=== PATIENT | female | born 1985 | race Caucasian/White ===

== ENCOUNTER → 2022-04-12 | Outpatient (CLI) | payer MEDICAID, SELFPAY ==
[2022-04-12 18:21] LABS: ALB/GLOB Ratio 1.1 RATIO (0.9-2.4); AST(SGOT) 8 U/L (15-37); Alanine Aminotransfer ALT/SGPT 19 U/L (13-56); Albumin, Serum 4.1 g/dL (3.2-5.0); Alkaline Phosphatase 102 U/L (45-117); Anion Gap 6 (5-15); BUN 9 mg/dL (7-18); BUN/Creat Ratio 13.2 RATIO (10-20); Calcium,Total 9.1 mg/dL (8.5-10.1); Chloride 106 mmol/L (98-107); Creatinine, Serum 0.68 mg/dL (0.55-1.02); EST Glomerular Filtration Rate 104 mL/min (>60); Est Glom Filt Rate - Afr Amer 126 mL/min (>60); Globulin 3.8 g/dL (2.2-4.2); Glucose 86 mg/dL (74-106); Potassium 4.1 mmol/L (3.5-5.1); Protein, Total 7.9 g/dL (6.4-8.2); Sodium Level 139 mmol/L (136-145)
== END | disposition home or self-care (01) ==
LOC: LAB 16:40
PROVIDERS: PCP Student in an Organized Health Care Education/Training Program; Visit Provider Internal Medicine Endocrinology, Diabetes & Metabolism
DX: R63.4 Abnormal weight loss (principal)
CPT/HCPCS: 36415; 80053; 82533

== ENCOUNTER → 2022-04-22 | Outpatient (CLI) | payer MEDICAID, SELFPAY ==
[2022-04-22 17:11] LABS: Absolute Lymphocyte Count 3.48 X10^3/uL (0.83-4.51); Absolute Neutrophil Count 4.7 X10^3/uL (2.0-7.7); Basophil# 0.04 X10^3/uL; Basophil% 0.4 % (0-1); Eosinophil# 0.29 X10^3/uL; Eosinophils% 3.2 % (0-5); Hematocrit 42.5 % (37-47); Hemoglobin 14.2 g/dL (12.0-15.0); Lymphocyte # 3.48 X10^3/ul (0.83-4.51); Lymphocyte % 38.8 % (19-41); Mean Corp Hgb Conc 33.4 g/dL (32-36); Mean Corpuscular Hgb 30.3 pg (27.0-32.0); Mean Corpuscular Volume 90.6 fL (81-99); Monocyte# 0.44 X10^3/uL; Monocyte% 4.9 % (0-10); NRBC Flagged by Analyzer 0 % (0-5); Neutrophil # 4.67 X10^3/uL (2.7-7.7); Platelet Count 201 K/mm3 (150-450); RBC Distribution Width SD 42.8 fl (35.1-43.9); Red Blood Count 4.69 M/mm3 (4.2-5.4)
[2022-04-22 17:56] LABS: Erythrocyte Sedimentation Rate 7 mm/hr (0-30)
[2022-04-22 18:30] LABS: ALB/GLOB Ratio 1.1 RATIO (0.9-2.4); AST(SGOT) 10 U/L (15-37); Alanine Aminotransfer ALT/SGPT 17 U/L (13-56); Albumin, Serum 4.2 g/dL (3.2-5.0); Alkaline Phosphatase 98 U/L (45-117); Anion Gap 4 (5-15); BUN 7 mg/dL (7-18); BUN/Creat Ratio 10.5 RATIO (10-20); CRP < 2.90 mg/L (0.0-3.0); Calcium,Total 9.2 mg/dL (8.5-10.1); Chloride 107 mmol/L (98-107); Creatinine, Serum 0.67 mg/dL (0.55-1.02); EST Glomerular Filtration Rate 107 mL/min (>60); Est Glom Filt Rate - Afr Amer 129 mL/min (>60); Free T3 2.8 pg/mL (2.18-3.98); Globulin 3.7 g/dL (2.2-4.2); Glucose 83 mg/dL (74-106); LDH 120 U/L (84-246); Potassium 3.8 mmol/L (3.5-5.1); Protein, Total 7.9 g/dL (6.4-8.2); Sodium Level 139 mmol/L (136-145); T4 Free Direct 1.28 ng/dL (0.76-1.46); Thyroid Stim Hormone (TSH) 2.08 uIU/mL (0.358-3.74)
[2022-04-25 16:08] LABS: Endomysial Antibody IgA Negative (Negative)
[2022-04-25 19:09] LABS: Immunoglobulin A 357 mg/dL (87-352); t-Transglutaminase IgA <2 U/mL (0-3)
[2022-04-27 12:08] LABS: Cytoplasmic Ab (C-ANCA) <1:20 titer (Neg:<1:20); Immunoglobulin A 377 mg/dL (87-352); Immunoglobulin E 209 IU/mL (6-495); Immunoglobulin G 1015 mg/dL (586-1602)
[2022-04-27 13:33] LABS: Cancer Antigen 125 44.7 U/mL (0.0-38.1); Carbohydrate AG 19-9 19 U/mL (0-35); Carcinoembryonic Antigen 4.1 ng/mL (0.0-4.7); Immunoglobulin M 170 mg/dL (26-217); Perinuclear Ab (P-ANCA) <1:20 titer (Neg:<1:20)
== END | disposition home or self-care (01) ==
LOC: LAB 16:11
PROVIDERS: PCP Student in an Organized Health Care Education/Training Program; Visit Provider Internal Medicine Gastroenterology
DX: R63.4 Abnormal weight loss (principal)
CPT/HCPCS: 36415; 80053; 82378; 82784; 82785; 83516; 83615; 84439; 84443; 84481; 85025; 85652; 86140; 86255; 86256; 86301; 86304

== ENCOUNTER → 2022-04-25 | Outpatient (CLI) | payer MEDICAID, SELFPAY ==
[2022-04-29 10:46] LABS: Calprotectin, Stool <16 ug/g (0-120); Fats, Neutral Normal (.); Fats, Total Increased (.)
[2022-04-30 20:45] LABS: Pancreatic Elastase, Fecal 271 (>200)
== END | disposition home or self-care (01) ==
LOC: LAB 14:43
PROVIDERS: PCP Student in an Organized Health Care Education/Training Program; Referring Provider Internal Medicine Gastroenterology; Visit Provider Internal Medicine Gastroenterology
DX: R63.4 Abnormal weight loss (principal); K58.9 Irritable bowel syndrome, unspecified
CPT/HCPCS: 82274; 82653; 82705; 83630; 83993; 87177; 87209; 87329; 87493; 87506

== ENCOUNTER 2022-05-06 15:30 | Outpatient (RCR) | payer MEDICAID, SELFPAY ==
--- NOTE | 2022-01-26 16:18 | HP.PTEVAL_ITS ---
Patient's Visit Information IISDRA LIM is a 36 year old F referred to Physical Therapy by Dr. Kings Kline MD with a diagnosis of L knee pain. Date of Evaluation: 01/20/22 Physical Therapist: Yasmani Hair DPT - Visit Plan Frequency: 2x /Week Duration: 6 Weeks Plan: Start with quad activation, glute med/max strengthening. Progress ROM to full as tolerated. Progress to more LE loading and core strengthening as tolerated. - Subjective Pt. is here today for her initial evaluation with diagnosis of L knee pain. Pt. reports having pain for a number of years, but recently has become worse. Pt. reports having a surgical intervention when she was younger, what she described might have been a lateral release like surgery, but was unsure what was done. Increases pain: walking, standing, squatting, stairs. Decreases pain: ice and rest. 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 She describes pain as general throughout L knee, both medial lateral joint line and throughout anterior knee. She reports no popliteal pain. Pt. reports that her leg does give out on her at times, but has not done so much frequently. No pain with sleeping. Pt. denies N/T either LE. She denied that her leg locked on her. She would like to get back to all recreational activities without limitations. - Pain L knee Pain Intensity (Out of 10): 3 Pain Intensity Range: 0, 10 - Objective POSTURE: Pt. has decent posture in stance. Slightly wider LEONA, slight L knee genu varum with hip IR stance. Pt. is able to correct with VCing. PALPATION: Pt. has increased pain with palpation along medial and lateral joint line. Pt. has pain at medial popliteal fossa as well. NEURO: Normal throughout BLEs. Normal sensation in BLEs. ROM: L knee: 0-5-110deg increase in L knee pain. R knee: 0-0-129deg.Tightness in B hamstring. Normal hip ROM noted. Pt. has pain with over pressure of L knee into extension. MMT: RLE: ankle 5/5 throughout; knee: ext 5-/5, flexion 5-/5; hip: flexion 5-/5, abd 4/5, ext 5-/5. LLE: ankle 5/5 throughout; knee: ext 4/5 increase NW, flexion 4/5 increase NW; hip: flexion 4/5 increase NW, abd 4/5 increase NW, ext 4/5 NE. GAIT: Pt. ambulates without AD, she has increased antalgic pattern during L stance phase, decreased R step length. Lacks TKE on LLE in stance. Increased hip IR and slight valgus posi tioning. STAIRS: step to pattern loading RLE only with use of BHR. - Special Tests L Knee Rebecca - Meniscus: Positive L Knee Apley - Meniscus: Positive L Knee Anterior Drawer - ACL: Negative L Knee Posterior Drawer - PCL: Negative L Knee Valgus - MCL: Negative L Knee Varus - LCL: Negative L Knee Patellar Apprehension - PFS: Negative L Knee Patellar Grind - PFS: Positive - Balance/Special Test Scores Lower Extremity Functional Score: 53 - Goals Goal 1:: LTG: Pt. to be I with HEP for L knee ROM and quad/glute strengthening Goal Time Frame: 4-6 Weeks Goal 2:: STG: pt. to be able to walk with in home without increase in symptoms. Goal Time Frame: 2-4 Weeks Goal 3:: LTG: Pt. to have increased L knee ROM to 0-0-120deg without increase in symptoms. Goal Time Frame: 2-4 Weeks Goal 4:: LTG: Pt. to have increased L quad, L HS and L glute strength increased by 1/2 grade of all effected musculature. Goal Time Frame: 4-6 Weeks Goal 5:: LTG: Pt. to ambulate unlimited distances with 0-2/10 pain in L knee. Goal Time Frame: 4-6 Weeks Goal 6:: LTG: pt. to negotiate steps with reciprocal pattern wtih 1 HR without increase in symptoms. Goal Time Frame: 4-6 Weeks - Rehabilitation Potential Physical Therapy Diagnosis: Pt. has signs and symptoms consistent with chronic L knee pain. Pt. did have a previous knee injury with reports of surgery. She did not know to what extent, was ~20 years ago. Pt. has marked joint line tenderness and popliteal pain. She has marked hypomobility, hard to rule out meniscus issue, but either way she needs better quad activation and L knee ROM. - Anticipated Interventions Patient/Client Instruction: Educate patient on: Condition, Plan of Care, Risk Factors, Benefits of Fitness Program For the Purpose of:: To facilitate caregiver knowledge, To improve self management, To prevent re-injury, To improve ability to perform tasks related to life management, To improve tolerance to ADL's Therapeutic Exercise to Include: Strength training, Power training, Endurance training, Postural training, Flexibilty training, Gait and locomotor training, Passive ROM, Active ROM, Dynamic Lumbar Stabilization For the Purpose of:: To decrease pain, To decrease swelling/inflammation, To increase ROM, To increase oxygenation perfusion, To improve muscle performance and motor function, To increase tolerance to activity/condition/position, To improve gait and locomotor functions, To improve health of tissue, To decrease soft tissue restriction, To increase flexibility/ROM Cryotherapy (ice pack, ice massage): Yes Thermo therapy (hot pack): Yes For the Purpose of:: To decrease pain, To decrease swelling/inflammation, To increase ROM Thank you for the opportunity to evaluate your patient. For Medicare and Medicare HMO plans, please review the plan of care and approve it. It will need to be FAXED BACK to us at [phone] for Medicare purposes. For Medicare only, by signing this I certify the plan of care. Please let me know if there are questions or concerns regarding this plan of care. Physician Signature: Date:
--- NOTE | 2022-02-10 10:17 | HP.PTEVAL2 ---
Patient's Visit Information ISIDRA LIM is a 36 year old F referred to Physical Therapy by Dr. Kings Kline MD with a diagnosis of Mixed Stress and Urge Urinary Incontinence. Date of Evaluation: 02/10/22 Physical Therapist: Rae Thakur, PT, Cert MDT - Visit Plan Frequency: 1x/Week Duration: 8-12 Plan: *SEIZURE DISORDER - REQUESTS THAT WE NOT CALL THE [facility] IF SHE HAS ONE HERE*. *Secondary Chart - CHECK AUTH: RECORD # OF VISITS APPROVED AND EXPIRATION DATE. CHECK CODES APPROVED WITH POC*. MANUAL PF THERAPY FOR STRENGTHENING, LENGTHENING/RELAXATION AND ENDURANCE TRAINING. CONSIDER INTERNAL OR EXTERNAL PF BIOFEEDBACK WITH EQUIPMENT. TRAINING IN COORDINATION OF PELVIC FLOOR MUSCULATURE WITH CORE (TRANSVERSE ABDOMINUS) STRENGTHENING. TRAINING IN ABDOMINAL CAVITY PRESSURE MGMT WITH ADL'S TO DECREASE URINARY LEAKING. 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 ONE SON THAT IS 3 YEARS OLD. Disability: YES. BIPOLAR PARANOID SCHIZOPHRENIC. SIEZURE DISORDER (PATIENT REPORTS HER LAST SEIZURE WAS A FEW WKS AGO. REQUESTS THAT WE DO NOT CALL THE [facility] IF SHE HAS ONE). Present symptoms: URINE LEAKAGE WITH CHANGE OF POSITION. PATIENT DENIES PAIN. Present since: 3 YEARS AGO. Pain Scale: N/A. Commenced as a result of: CHILDBIRTH. Symptoms at onset: SAME. UNCHANGING FOR 3 YEARS. Worse: CHANGE OF POSITION - STANDING UP AND LAYING DOWN. HEAVY LIFTING. COUGHING AND SNEEZING. Better: NOTHING. Disturbed sleep: 0-1 TIMES A NIGHT GETTING UP TO URINATE. INCONTINENT AT NIGHT WHILE SLEEPING IF DOES NOT TAKE HER MEDICINE. HAS BEEN ON THIS MEDICINE SINCE CHILDHOOD. Treatment this episode: PATIENT REPORTS SHE HAS BEEN PRESCRIBED SEVERAL DIFFERENT MEDICINES TO HELP AND THEY HAVE NOT. NO PRIOR PHYSICAL THERAPY. Gait: NO ASSISTIVE DEVICES BUT IN PT CURRENTLY FOR L KNEE. Bowel Dysfunction: NO. Accidents: NO. Unexplained weight loss: YES - HAS LOST ABOUT 100 LBS IN 4 MONTHS. 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 Testing: PATIENT REPORTS HER DOCTOR DID A TEST THAT SHOWED HER BLADDER IS EMPTYING OK. PMH/Recent major surgery: ASTHMA - CARRIES INHALER. OTHER: SOMETIMES WEARING PULL UPS IF REMEMBERS TO PUT THEM ON. CHILDBIRTH: PATIENT REPORTS COMPLICATIONS WITH DELIVERY RESULTING IN 85 STITCHES. - Objective Objective: Sitting/Standing Posture: POOR. FH. RS'S. NO RELEVENT LUMBAR SHIFT. Active Correction of posture: NE - ONLY ABLE TO PARTIALLY CORRECT. Other Observations: INDEP GAIT AND TRANSFERS. Sensory deficit: DEON LE LIGHT TOUCH SENSATION IS GROSSLY INTACT AND SYMMETRICAL. ROM deficit: DEON LE'S GROSSLY WFL. Motor deficit: DEON LE'S WFL BUT CURRENTLY GETTING PHYSICAL THERAPY FOR LEFT KNEE. Dural Signs: NEGATIVE DEON LE'S. Lumbar mvmt loss: flex - NIL. ext - NIL. R SG - MIN. L SG - MIN. PATIENT DENIES PAIN WITH LUMBAR ROM TESTING ALL PLANES. Core strength: POOR. Palpation: MANUAL INTERNAL PF TESTING REVEALS 3/5 STRENGTH WITH 6 SEC ENURANCE X 5 REPS. PATIENT DENIED PAIN WITH PF PALPATION. DEON PF TRIGGER POINTS PALPABLE. TREATMENT: NEUROMUSCULAR REEDUCATION - RETRAINING OF MVMT AND POSTURE FOR SITTING, LYING AND STANDING ACTIVITIES. - Goals Goal 1:: DECREASE URINARY LEAKAGE EPISODES TO 2 OR LESS TIMES PER DAY Goal Time Frame: 8-12 Weeks Goal 2:: DECREASE TYPE OF PAD OR PROTECTION FROM HEAVY TO LIGHT Goal Time Frame: 6-8 Weeks Goal 3:: PATIENT WILL DEMONSTRATE 10 CONSISTENT AND CONSECUTIVE 10 SECOND PELVIC FLOOR MUSCLE CONTRACTIONS TO DEMONSTRATE IMPROVED PELVIC FLOOR ENDURANCE. Goal 4:: FLUID INTAKE OF ? BODY WEIGHT IN OUNCES PER DAY WITH 2/3 BEING WATER. Goal Time Frame: 2-4 Weeks Goal 5:: VOID FREQUENCEY EVERY 3-4 HOURS Goal Time Frame: 4-6 Weeks Goal 6:: PATIENT WILL BE INDEP WITH A HEP/HOME INSTRUCTIONS FOR CONTINUED IMPROVEMENT ONCE FORMAL PHYSICAL THERAPY CONCLUDES. Goal Time Frame: 8-12 Weeks - Anticipated Interventions Patient/Client Instruction: Educate patient on: Condition, Plan of Care, Risk Factors For the Purpose of:: To improve self management Therapeutic Exercise to Include: Strength training, Endurance training, Coordination, Body mechanics, Postural training, Neuromotor development For the Purpose of:: To improve muscle performance and motor function, To increase tolerance to activity/condition/position, To improve ability of physical actions for home/community/work/leisure Manual Therapy Techniques to Include: Trigger point massage Comment: MANUAL BIOFEEDBACK FOR STRENGTHENING AND ENDURANCE TRAINING. For the Purpose of:: To improve muscle performance and motor function, To increase tolerance to activity/condition/position, To improve ability of physical actions for home/community/work/leisure Thank you for the opportunity to evaluate your patient. For Medicare and Medicare HMO plans, please review the plan of care and approve it. It will need to be FAXED BACK to us at [phone] for Medicare purposes. For Medicare only, by signing this I certify the plan of care. Please let me know if there are questions or concerns regarding this plan of care. Physician Signature: Date:
--- NOTE | 2022-03-09 16:24 | HP.PTDCSUM ---
It has been my pleasure to treat ISIDRA LIM referred by Dr. Kings Kline MD, with the diagnosis of L knee pain for a total of 9 visit(s). Discharge Date: 03/09/22 Please see the following information for a summary of their discharge status. Subjective: Pt. reports no pain currently and reports no having pain for a few weeks. Pt. reports being 100% better overall. She is walking a few miles per day, but does have some slight soreness with inclines. Reduces with short periods of rest. Pt. reports being much stronger than before. L knee Pain Intensity (Out of 10): 0 % Improvement: 100 Objective/Function: Pt. reports overall doing well. ROM : 0-0-139deg no pain. MMT: 5/5 throughout without increase in symptoms. gait: Pt. has good gait pattern without issues. Pt. has no antalgic pattern without AD. STAIRS: Pt. is able to negotiate with reciprocal pattern without use of HR. Pt. reports no pain. Goal 1:: LTG: Pt. to be I with HEP for L knee ROM and quad/glute strengthening Goal Progress: Goal Met Goal 2:: STG: pt. to be able to walk with in home without increase in symptoms. Goal Progress: Goal Met Goal 3:: LTG: Pt. to have increased L knee ROM to 0-0-120deg without increase in symptoms. Goal Progress: Goal Met Goal 4:: LTG: Pt. to have increased L quad, L HS and L glute strength increased by 1/2 grade of all effected musculature. Goal Progress: Goal Met Goal 5:: LTG: Pt. to ambulate unlimited distances with 0-2/10 pain in L knee. Goal Progress: Goal Met Goal 6:: LTG: pt. to negotiate steps with reciprocal pattern wtih 1 HR without increase in symptoms. Goal Progress: Goal Met Plan: Pt. to be DC from PT at this point in time. Pt. has met all goals and is doing well with all HEP and general mobility. Pt. to continue with her HEP as instructed. Pt. consents. Discharge Comments: Pt. will be DC from PT at this point in time. Pt. has met all goals and will be DC. Pt. is walking well and has much improved ROM and strength. If there are questions or concerns regarding this patient's physical therapy, please feel free to call me at [phone]. Thank you for the referral of this patient. Sincerely, Yasmani Hair, ALIREZAT Balance/Gait/Functional tests - Balance/Special Test Scores Lower Extremity Functional Score: 80
--- NOTE | 2022-05-06 16:23 | HP.PTDCS(2) ---
It has been my pleasure to treat ISIDRA LIM referred by Dr. Kings Kline MD, with the diagnosis of Mixed Stress and Urge Urinary Incontinence for a total of 11 visit(s). Discharge Date: Please see the following information for a summary of their discharge status. Subjective: ABDOMINAL CAT SCAN PENDING TODAY AFTER PT DUE TO WEIGHT LOSS ORDERED BY DR. JIMÉNEZ. % Improvement: 98 Objective/Function/Assessment: PATIENT WAS SEEN TODAY FOR RE-ASSESSMENT OF PROGRESS TOWARD THE SET PT GOALS. ALL GOALS have been MET or patient is making progress toward them AND PATIENT IS INDEP WITH A HEP. PATIENT COMMUNICATES/DEMONSTRATES A GOOD UNDERSTANDING OF ALL. INSTRUCTIONS AFTER GIVEN. SHE STATES SHE IS VERY HAPPY WITH HER PROGRESS AND WISHES SHE WOULD HAVE COME TO PHYSICAL THERAPY SOONER. MANUAL INTERNAL VAGINAL PELVIC FLOOR STRENGTH TESTING REVEALS 5/5 STRENGTH WITH 10 SEC ENDURANCE NOW. FUNCTIONAL SCREEN: Incontinence Impact Questionnaire Score: 2. Urogenital Distress Inventory Score: 0 Patient Goals: Other Other Goals: TO STOP URINE LEAKING Goal 1:: DECREASE URINARY LEAKAGE EPISODES TO 2 OR LESS TIMES PER DAY Goal Progress: Goal Met Goal 2:: DECREASE TYPE OF PAD OR PROTECTION FROM HEAVY TO LIGHT Goal Progress: Goal Met Goal 3:: PATIENT WILL DEMONSTRATE 10 CONSISTENT AND CONSECUTIVE 10 SECOND PELVIC FLOOR MUSCLE CONTRACTIONS TO DEMONSTRATE IMPROVED PELVIC FLOOR ENDURANCE. Goal Progress: Goal Met Goal 4:: FLUID INTAKE OF ? BODY WEIGHT IN OUNCES PER DAY WITH 2/3 BEING WATER. Goal Progress: Progressing Goal 5:: VOID FREQUENCEY EVERY 3-4 HOURS Goal Progress: Progressing Goal 6:: PATIENT WILL BE INDEP WITH A HEP/HOME INSTRUCTIONS FOR CONTINUED IMPROVEMENT ONCE FORMAL PHYSICAL THERAPY CONCLUDES. Goal Progress: Progressing Plan: D/C TO HEP AND PHYSICIAN FOLLOW UP. PATIENT AGREEABLE. If there are questions or concerns regarding this patient's physical therapy, please feel free to call me at [phone]. Thank you for the referral of this patient. Sincerely, Rae Thakur, PT, Cert MDT
== END 2022-05-06 19:00 | disposition home or self-care (01) ==
LOC: PT 15:30
PROVIDERS: PCP Student in an Organized Health Care Education/Training Program; Visit Provider Orthopaedic Surgery Sports Medicine
DX: M25.562 Pain in left knee (principal); N39.46 Mixed incontinence
CPT/HCPCS: 97110; 97161; 97162; 97164; 97530

== ENCOUNTER → 2022-05-06 | Outpatient (CLI) | payer MEDICAID, SELFPAY ==
--- NOTE | 2022-05-06 16:39 | CT_ITS ---
INDICATION: Weight loss. EXAMINATION: CT ABDOMEN AND PELVIS WITH CONTRAST - CT Abdomen And Pelvis W/ Contrast Injection TECHNIQUE: Helically acquired images were obtained of the abdomen and pelvis following IV contrast. A radiation dose optimization technique was used for this scan. IV Contrast dosage and agent: 100 mL of Isovue-300 Oral contrast: With COMPARISON: None. FINDINGS: LOWER CHEST: Lung bases are clear. No cardiomegaly or pericardial effusion. LIVER: The liver is mildly enlarged but uniform in density. No focal mass. GALLBLADDER AND BILIARY TREE: No calcified gallstones. No gallbladder distension or wall edema. No intra- or extrahepatic biliary ductal dilation. PANCREAS: No focal cystic or solid mass. SPLEEN: Normal size without focal cystic or solid mass. ADRENAL GLANDS: No nodules. KIDNEYS AND URETERS: Normal renal size and position. No hydronephrosis. PERITONEUM: No ascites or free air. No other fluid collection. BOWEL: Normal stomach. Proximal small intestine. And without mass or obstruction. The appendix is normal. LYMPH NODES: No enlarged mesenteric or retroperitoneal lymph nodes. VESSELS: Normal IVC and abdominal aorta. URINARY BLADDER: Unremarkable. REPRODUCTIVE ORGANS: Normal uterus. There is a cyst left ovary. Normal right adnexa. ABDOMINAL WALL: No discrete abdominal or pelvic wall hernia. BONES: No lytic or blastic abnormality. CT/Abdomen/Pelvis WITH Contrast IMPRESSION: 1. Small left ovarian cyst versus dominant follicle. 2. Mild hepatomegaly without mass. 3. Otherwise normal CT of the abdomen and pelvis. Electronically Signed: Josh Ritchie DO at 23:51 EST Reading Location ID and State: [address] [place] [address] Tel [phone], Service support ,
== END | disposition home or self-care (01) ==
LOC: CT 16:38
PROVIDERS: PCP Student in an Organized Health Care Education/Training Program; Visit Provider Internal Medicine Gastroenterology
DX: N83.202 Unspecified ovarian cyst, left side (principal); R16.0 Hepatomegaly, not elsewhere classified; R63.4 Abnormal weight loss
CPT/HCPCS: 74177; Q9967

== ENCOUNTER → 2022-06-09 | Outpatient (CLI) | payer MEDICAID, SELFPAY ==
--- NOTE | 2022-06-09 | TELEMED_ITS ---
[facility] has confirmed receipt of a request for visit. This document confirms receipt of the order initiating the consult. To find the results of the consultation, please view the patient's reports for the scanned Telemed Consult.
== END | disposition home or self-care (01) ==
LOC: PSN 08:34
PROVIDERS: PCP Student in an Organized Health Care Education/Training Program; Referring Provider Psychiatry & Neurology Neurology; Visit Provider Psychiatry & Neurology Neurology
DX: G40.909 Epilepsy, unspecified, not intractable, without status epilepticus (principal); F81.9 Developmental disorder of scholastic skills, unspecified
CPT/HCPCS: 95819

== ENCOUNTER 2022-06-10 10:16 | Emergency (ER) | payer MEDICAID, SELFPAY ==
[2022-06-10 10:17] VITALS: BP 133/67; PULSE 83; RESP 17; TEMP 36.2; O2SAT 100; BMI 27.1
--- NOTE | 2022-06-10 10:30 | EKG12_ITS ---
Test Reason : Blood Pressure : / mmHG Vent. Rate : 073 BPM Atrial Rate : 073 BPM P-R Int : 122 ms QRS Dur : 106 ms QT Int : 420 ms P-R-T Axes : 070 061 029 degrees QTc Int : 462 ms Normal sinus rhythm Normal ECG Confirmed by JEWELL LEDESMA MD ([id number]), publications editor ZOYA ABDUL ([id number]) on 06/13/2022 11:09:45 AM Referred By: AIXA Confirmed By:JEWELL LEDESMA MD
--- NOTE | 2022-06-10 10:30 | EX.ED.DYSGE1 ---
HPI History of Present Illness Chief Complaint: Shortness of Breath Detail of Chief Complaint: Shortness of breath, chest tightness, arm paresthesias Informant: patient Narrative Narrative: Patient states that when she woke this morning she noted paresthesias in her left forearm only along with some chest tightness and shortness of breath. She had minimal cough recently. No fever or chills. She denies any personal history of cardiac disease but does have a family history. [facility] Medical History Abnormal weight loss Anxiety Depression Epilepsy Folate deficiency Lois's thyroiditis Iron deficiency Left anterior knee pain Narcotic addiction Schizophrenia Seasonal allergies Seizure disorder Thyroid enlargement Weight loss Home Medications buspirone 5 mg tablet 5 mg PO ONCE PRN 01/17/22 [History Last Taken Unknown] desmopressin 0.2 mg tablet (DDAVP) 0.2 mg PO ONCE 01/17/22 [History Last Taken Unknown] docusate sodium 100 mg capsule 100 mg PO BID 01/17/22 [History Last Taken Unknown] lamotrigine 150 mg tablet 150 mg PO BID 01/17/22 [History Last Taken Unknown] oxybutynin chloride 5 mg tablet,extended release 24 hr 5 mg PO DAILY 01/17/22 [History Last Taken Unknown] albuterol sulfate 90 mcg/actuation aerosol inhaler 2 puff inhalation Q6H PRN 02/16/22 [History Last Taken Unknown] lorazepam 1 mg tablet 1 mg PO DAILY PRN 02/16/22 [History Last Taken Unknown] pediatric multivitamin no.7-folic acid 100 mcg chewable tablet (Flintstones Multi-Vitamins Gummies) tab PO 04/12/22 [History Last Taken Unknown] levothyroxine 75 mcg tablet 75 mcg PO DAILY #30 tabs 04/14/22 [Rx Last Taken Unknown] Allergy/AdvReac Type Severity Reaction Status Date / Time promethazine [From Phenergan] Allergy Vomiting Verified 06/10/22 10:16 Surgical History H/O knee surgery Social History household members: spouse and children number of children: 1 Smoking Status: Current every day smoker tobacco type: cigarettes Tobacco: How many years used: 20 second hand exposure: Yes alcohol intake: former details: recovering alcoholic substance use type: former substance user seatbelt use: never ROS ROS ED Constitutional Constitutional ED: Denies chills or fever(s) Eyes Eyes: Denies change in vision or discharge from eye(s) ENT ENT ED: Denies discharge from eye(s), rhinorrhea or sore throat Cardiovascular Cardiovascular: Reports chest pain; Denies palpitations Respiratory/Chest Respiratory/Chest: Reports cough and dyspnea Gastrointestinal Gastrointestinal: Denies abdominal pain, diarrhea, nausea or vomiting Genitourinary Genitourinary ED: Denies difficulty urinating or dysuria Musculoskeletal Musculoskeletal: Denies back pain or extremity pain Integumentary Denies Abrasions or rash Neurologic Neurologic: Reports paresthesias LUE; Denies headache(s) or weakness Psychiatric Psychiatric: Denies anxiety or depression Allergic/Immunologic Allergic/Immunologic ED: Denies lip swelling or urticaria EXAM Physical Exam Const Vital Signs: 06/10/22 10:17 06/10/22 10:48 06/10/22 10:55 Temperature 97.1 F L Temperature Source Temporal Pulse Rate 83 Respiratory Rate 17 Respiratory Effort Short of Breath Respiratory Pattern Blood Pressure 133/67 H Blood Pressure Mean 89 Pulse Ox 100 Oxygen Delivery Method Room Air Room Air Room Air 06/10/22 10:43 06/10/22 13:42 Temperature Temperature Source Pulse Rate 78 71 Respiratory Rate 16 17 Respiratory Effort Respiratory Pattern Normal Blood Pressure Blood Pressure Mean Pulse Ox 98 Oxygen Delivery Method Room Air Positive well nourished and well developed General Appearance ED: well developed HEENT Reports normocephalic and head/scalp atraumatic Eyes PERRL and EOMs intact bilaterally Neck supple Chest Wall inspection of chest normal and palpation of chest normal Resp normal respiratory effort and clear to auscultation bilaterally Cardio regular rate and regular rhythm GI normal to inspection, nondistended, normoactive bowel sounds Palpation: soft Back/Spine no CVA tenderness Extremity normal to inspection Extremity Narrative: Left upper extremity: Strong distal pulses with normal cap refill. Normal strength and sensation on testing. Neuro oriented x3 and no sensory deficits noted Sensorium / Orientation: alert Motor Exam: strength 5/5 throughout Psych mental status grossly normal Skin no rashes or lesions noted MDM MDM MDM Narrative Medical decision making narrative: Patient given aspirin on arrival. Patient placed on cardiac cath technician to evaluate for arrhythmia. EKG obtained along with chest x-ray to evaluate cardiac size and any acute lung pathology. Lab work obtained to evaluate for anemia or electrolyte derangement along with a cardiac ischemia. DuoNeb treatment given for shortness of breath. Lab Data Attestation: I reviewed the patient's lab results. Labs: Laboratory Results - last 24 hr 06/10/22 06/10/22 06/10/22 10:45 10:45 13:00 WBC 8.9 RBC 4.38 Hgb 13.0 Hct 40.4 MCV 92.2 MCH 29.7 MCHC 32.2 RDW Std Deviation 44.1 H RDW Coeff of Suzette 12.9 Plt Count 189 MPV 12.3 H Immature Gran % (Auto) 0.800 Neut % (Auto) 59.7 Lymph % (Auto) 30.9 York % (Auto) 5.6 Eos % (Auto) 2.5 Baso % (Auto) 0.5 Absolute Neuts (auto) 5.3 Absolute Lymphs (auto) 2.74 Nucleated RBC % 0 Sodium 142 Potassium 4.0 Chloride 107 Carbon Dioxide 27.0 Anion Gap 8 BUN 11 Creatinine 0.60 Estim Creat Clear Calc 127.26 Est GFR (MDRD) Af Amer 147 Est GFR (MDRD) Non-Af 122 BUN/Creatinine Ratio 18.5 Glucose 86 Calcium 8.9 Troponin I High Sens 4 5 Radiography Chest X-Ray - ED: 1 View, Read by ED Physician, Normal, Heart, Lungs and Mediastinum Diagnostic Testing: Clinical Impression(s) from Imaging Studies Chest X-Ray 06/10/22 10:55 IMPRESSION: Normal x-ray examination of the chest. Electronically Signed: Sanjeev Phillips MD at 11:09 EST , EKG Initial EKG: Attestation: I personally reviewed and interpreted this EKG as follows: Interpretation: Sinus Rhythm (Sinus at 73 with no acute ischemia.) Treatment and Re-Evaluation Narrative: On repeat evaluation patient is sleeping comfortably. O2 sat is 98% on room air. EKG reveals no acute ischemia. Portable chest x-ray per my interpretation reveals no infiltrate or acute abnormality. Radiology interpretation is reviewed and agrees. Lab work is unremarkable. Initial troponin is normal at 4. 2-hour repeat troponin is 5. At this time patient states that she is improved. The arm paresthesias are also improved. Patient will be discharged to home with return instructions. Discharge Plan Triage Chief Complaint: Shortness of Breath ED Provider: Migdalia Gallardo Dx/Rx/DC Orders Clinical Impression: Chest pain, Arm paresthesia, left Instructions: ED Chest Pain, Uncertain Cause, ED Paraesthesias Prescriptions: No Action lamotrigine 150 mg tablet 150 mg PO BID docusate sodium 100 mg capsule 100 mg PO BID oxybutynin chloride 5 mg tablet extended release 24hr 5 mg PO DAILY desmopressin [DDAVP] 0.2 mg tablet 0.2 mg PO ONCE buspirone 5 mg tablet 5 mg PO ONCE PRN albuterol sulfate 90 mcg/actuation HFA aerosol inhaler 2 puff inhalation Q6H PRN lorazepam 1 mg tablet 1 mg PO DAILY PRN Flintstones Multi-Vit Gummies 100 mcg tablet,chewable PO levothyroxine 75 mcg tablet 75 mcg PO DAILY Qty: 30 6RF Primary Care Provider: Olman Dickey Referrals: Olman Dickey DO [Primary Care Provider] - 1 Week if not improving Disposition Disposition: Home, Self Care
[2022-06-10 10:43] VITALS: PULSE 78; RESP 16
[2022-06-10] MEDS: Ipratropium/Albuterol Sulfate 3 ML AMPUL.NEB INHALATION (10:43)
[2022-06-10] MEDS: 0.9% Normal Saline 1,000 ML 150 ML IV (10:51)
[2022-06-10] MEDS: Aspirin 81 MG TAB.CHEW 324 MG PO (10:51)
--- NOTE | 2022-06-10 10:55 | RAD_ITS ---
STUDY: X-RAY CHEST REASON FOR EXAM: Female, 36 years old. Chest pain TECHNIQUE: Single AP portable view of the chest. COMPARISON: None. FINDINGS: EKG electrodes are seen. The lungs are clear and expanded. There is no demonstrated pleural abnormality. Normal size heart. Normal mediastinum and kuldeep. Normal visualized pulmonary arteries. Normal visualized aortic arch and descending thoracic aorta. Normal visualized thoracic spine. Normal visualized ribs, clavicles, and shoulders. There is no demonstrated abnormality of the visualized soft tissue structures of the upper abdomen. RAD/Chest 1 View (Portable) IMPRESSION: Normal x-ray examination of the chest. Electronically Signed: Sanjeev Phillips MD at 11:09 EST ,
[2022-06-10 10:57] LABS: Absolute Lymphocyte Count 2.74 X10^3/uL (0.83-4.51); Absolute Neutrophil Count 5.3 X10^3/uL (2.0-7.7); Basophil# 0.04 X10^3/uL; Basophil% 0.5 % (0-1); Eosinophil# 0.22 X10^3/uL; Eosinophils% 2.5 % (0-5); Hematocrit 40.4 % (37-47); Lymphocyte # 2.74 X10^3/ul (0.83-4.51); Lymphocyte % 30.9 % (19-41); Mean Corp Hgb Conc 32.2 g/dL (32-36); Mean Corpuscular Hgb 29.7 pg (27.0-32.0); Mean Corpuscular Volume 92.2 fL (81-99); Mean Platelet Vol. 12.3 fl (6.2-12.0); Monocyte% 5.6 % (0-10); NRBC Flagged by Analyzer 0 % (0-5); Neutrophil % 59.7 % (47-70); Platelet Count 189 K/mm3 (150-450); RBC Distribution Width CV 12.9 % (11.6-14.6); RBC Distribution Width SD 44.1 fl (35.1-43.9); Red Blood Count 4.38 M/mm3 (4.2-5.4); White Blood Count 8.9 K/mm3 (4.4-11.0)
[2022-06-10 11:14] LABS: Anion Gap 8 (5-15); BUN 11 mg/dL (7-18); BUN/Creat Ratio 18.5 RATIO (10-20); Calcium,Total 8.9 mg/dL (8.5-10.1); Chloride 107 mmol/L (98-107); EST Glomerular Filtration Rate 122 mL/min (>60); Est Glom Filt Rate - Afr Amer 147 mL/min (>60); Estimated Creatinine Clearance 127.26 ml/min; Glucose 86 mg/dL (74-106); Sodium Level 142 mmol/L (136-145); Troponin-I HS (w/2H Reflex) 4 pg/mL (3.0-54.0)
[2022-06-10 12:52] LABS: Reflex Troponin-HS? (from REC) Y
[2022-06-10 13:23] LABS: Troponin-I HS 5 pg/mL (3.0-54.0)
[2022-06-10 13:42] VITALS: PULSE 71; RESP 17; O2SAT 98
[2022-06-10 14:12] VITALS: PULSE 73; RESP 17; O2SAT 98
== END 2022-06-10 14:17 | disposition home or self-care (01) ==
PROVIDERS: Emergency Provider Emergency Medicine; PCP Student in an Organized Health Care Education/Training Program; Visit Provider Emergency Medicine
DX: R07.89 Other chest pain (principal); R20.2 Paresthesia of skin; R06.02 Shortness of breath; F17.210 Nicotine dependence, cigarettes, uncomplicated
CPT/HCPCS: 71045; 80048; 84484; 85025; 93005; 94640; 96360; 96361; 99285; J7030; A4216

== ENCOUNTER → 2022-06-20 | Outpatient (CLI) | payer MEDICAID, SELFPAY ==
--- NOTE | 2022-06-20 06:58 | MRI_ITS ---
STUDY: MRI BRAIN WITH AND WITHOUT CONTRAST REASON FOR EXAM: Female, 36 years old. Epilepsy, learning disability, schizophrenia hx seizures/grand mal, on meds , lastsz months ago, new neurologist TECHNIQUE: Standardized multiplanar fat and water weighted pulse sequences were obtained. clariscan 15nl iv was administered for the contrast portion of the examination. COMPARISON: None. FINDINGS: Normal size of the ventricles and extra-axial spaces for the patient''s age. Normal white matter tracts of the supratentorial brain. There is no evidence for recent intracranial ischemia or other cause of cytotoxic edema on diffusion weighted imaging (DWI). Normal T2* images of the brain without demonstrated susceptibility artifact. There is no demonstrated hemosiderin stain. There are no demyelinating plagues of the supratentorial brain, brainstem or cerebellum. There are no findings suspicious for multiple sclerosis (MS). No focal or suspicious brain parenchymal lesions are present. There is no abnormal enhancement of the brain parenchyma and no visualized ring-enhancing lesions. The meninges and dura are unremarkable. Normal bilateral basal ganglia. Normal thalami. There is no extra-axial fluid accumulation. No demonstrated mesial temporal sclerosis or atrophy. Normal flow voids within the major intracranial circulation suggesting patency by spin echo criteria. Normal venous enhancement. There is no enhancing intra-axial or extra-axial abnormality. Normal sella turcica, pituitary gland, infundibular stalk, optic chiasm and hypothalamus. Normal tectal plate and pineal gland. Normal midbrain, marlo and medulla. Normal cerebellum. Normal basal cisterns. Normal bilateral temporal bones. Normal bilateral internal auditory canals. No demonstrated orbital abnormality, within the constraints of a routine brain study. Normal visualized paranasal sinuses. Normal calvarium and skull base. Normal visualized soft tissue structures. Normal visualized upper cervical spine. MRI/Brain W/WO Contrast IMPRESSION: 1. Normal unenhanced and enhanced MRI of the brain. 2. No focal or suspicious brain parenchymal lesions are present. There is no abnormal enhancement of the brain parenchyma and no visualized ring-enhancing lesions. The meninges and dura are unremarkable. Electronically Signed: Kam Anna MD at 14:49 EST ,
[2022-06-20 07:52] LABS: Amphetamine Urine VISTA NEGATIVE (<1000 ng/mL); Barbiturate Urine VISTA NEGATIVE (< 200 ng/mL); Benzodiazepine Urine VISTA NEGATIVE (< 200 ng/mL); Cocaine Urine VISTA NEGATIVE (< 300 ng/mL); Ecstacy Urine VISTA NEGATIVE (< 500 ng/mL); Methadone Urine VISTA NEGATIVE (< 300 ng/mL); PCP Urine VISTA NEGATIVE (< 25 ng/mL); THC Urine VISTA NEGATIVE (< 50 ng/mL); Vista UDS pH Range 5
[2022-06-20 08:08] LABS: Vitamin B12 310 pg/mL (211-911)
[2022-06-23 00:06] LABS: Vitamin B1, Thiamine 146.9 nmol/L (66.5-200.0)
[2022-06-24 18:58] LABS: Lamotrigine (Lamictal) Level 4.9 ug/mL (2.0-20.0)
== END | disposition home or self-care (01) ==
PROVIDERS: PCP Student in an Organized Health Care Education/Training Program; Referring Provider Psychiatry & Neurology Neurology; Visit Provider Psychiatry & Neurology Neurology
DX: G40.909 Epilepsy, unspecified, not intractable, without status epilepticus (principal); F20.9 Schizophrenia, unspecified; F81.9 Developmental disorder of scholastic skills, unspecified; R63.4 Abnormal weight loss; Z79.899 Other long term (current) drug therapy
CPT/HCPCS: 36415; 70553; 80307; 82140; 82542; 82607; 82652; 82746; 84425; A9575

== ENCOUNTER → 2022-07-08 | Outpatient (CLI) | payer MEDICAID, SELFPAY ==
[2022-07-08 17:24] LABS: T4 Free Direct 1.23 ng/dL (0.76-1.46); Thyroid Stim Hormone (TSH) 1.53 uIU/mL (0.358-3.74)
== END | disposition home or self-care (01) ==
LOC: LAB 14:41
PROVIDERS: PCP Student in an Organized Health Care Education/Training Program; Visit Provider Internal Medicine Endocrinology, Diabetes & Metabolism
DX: E06.3 Autoimmune thyroiditis (principal)
CPT/HCPCS: 36415; 84439; 84443

== ENCOUNTER → 2022-07-25 | Outpatient (CLI) | payer MEDICAID, SELFPAY ==
--- NOTE | 2022-07-25 10:15 | NM_ITS ---
CLINICAL: 36-year-old female with history of clinical gastroparesis. SEMI-SOLID PHASE 99m Tc SULFUR COLLOID GASTRIC EMPTYING STUDY COMPARISON: None available FINDINGS: The patient was administered 1.1 mCi of 99m Tc sulfur colloid mixed with oatmeal and consumed per os. Image acquisitions in the anterior-posterior projections were obtained for 50 minutes. There is prompt visualization of the stomach. There is no gastroesophageal reflux identified. The T ? raw data emptying was calculated to be 25.31 minutes, (Normal: 12-56 minutes). NM/Gastric Emptying Study IMPRESSION: 1. NORMAL 99m Tc sulfur colloid semi-solid phase (oatmeal) gastric emptying imaging examination. A. There is normal and preserved semi-solid phase gastric emptying compared to normal controls. (Krishna et al, J Nucl Med Tech 38: 186, 2010). The patient terminated acquisition secondary to complaint of urgency. Electronically Signed: Jeovanny Reich, at 20:52 EDT ,
== END | disposition home or self-care (01) ==
LOC: NM 10:14
PROVIDERS: PCP Student in an Organized Health Care Education/Training Program; Visit Provider Internal Medicine Gastroenterology
DX: R10.9 Unspecified abdominal pain (principal); R63.4 Abnormal weight loss
CPT/HCPCS: 78264; A9541

== ENCOUNTER → 2022-08-03 | Outpatient (CLI) | payer MEDICAID, SELFPAY ==
--- NOTE | 2022-08-03 09:58 | US_ITS ---
STUDY: ABDOMINAL ULTRASOUND - ELASTOGRAPHY REASON FOR VISIT: Female, 36 years old. Hepatomegaly. TECHNIQUE: Liver stiffness measurements were obtained on a Mophie RS 85 ultrasound machine using a CA 1-7 probe following the SRU guidelines. 3 measurements were obtained using a 2-D-SWE method. TheIQR/M was 17% suggesting a quality data set. TECHNICAL QUALITY: Adequate. COMPARISON: None. FINDINGS: Liver: Hepatomegaly. Median liver stiffness measured 5 kPa. US/ABD Limited w/ Elastography IMPRESSION: Liver stiffness measures 5 kPa compatible with F0-F1 (Normal to mild liver fibrosis) Metavir score. Electronically Signed: Sanjeev Phillips MD at 11:15 EDT ,
== END | disposition home or self-care (01) ==
LOC: US 09:56
PROVIDERS: PCP Student in an Organized Health Care Education/Training Program; Referring Provider Internal Medicine Gastroenterology; Visit Provider Internal Medicine Gastroenterology
DX: R16.0 Hepatomegaly, not elsewhere classified (principal)
CPT/HCPCS: 76705; 76981

== ENCOUNTER 2022-12-29 07:30 | Day surgery (SDC) | payer MEDICAID, SELFPAY ==
--- NOTE | 2022-12-29 | IMM_PTH ---
PATIENT: ISIDRA LIM LOC: EN U#:[id number] AGE/SX: 37/F ROOM: RE12/29/[address]: Dr. Calos Sterling MD : 1985 BED: DIS: 12/29/2022 SPEC #: [id number] RECD: 12/29/22 12:59 STATUS: HARPAL VENU #: [id number] PRAVEEN: 12/29/22 00:[address]: Calos Sterling DEPT: IMMUNOHISTOCHEMISTRY RECD BY: Pee Johnson ENTERED: 12/29/22 13:03 SP TYPE: IMMUNO OTHR DR: Dr. Olman Dickey DO Tissues: Gastric mucous membrane Procedures: H Pylori (initial) PHYSICIAN & INSTITUTION [place] [id number] SPECIMEN INFORMATION: Tissue Source: Gastric antrum Clinical Info: Colonoscopy, EGD Specimen Number: [id number] CPT code: 03732 METHODOLOGY: Deparaffinized sections of prefer/formalin-fixed tissue or PAP/DQ stained slides are incubated with monoclonal/polyclonal antibodies/oligonucleotide probes. Localization is made via biotin free immunoperoxidase method. Appropriate controls are performed and reacted as expected. Results on target cell population are indicated in the following table: RESULTS: ANTIBODY / CLONE RESULT H Pylori (polyclonal) negative These tests were developed and their performance characteristics determined by [facility]. They may not have been cleared or approved by the U.S. Food and Drug Administration. The FDA has determined that such clearance or approval is not necessary. The above immunohistochemical/dualISH markers are ordered and reviewed by the Pathologist. INTERPRETATION: Gastric antrum, biopsy: Negative for Helicobacter pylori organisms. SJ:melchor 12/30/22
[2022-12-29 08:01] VITALS: BP 96/46; PULSE 69; RESP 16; TEMP 36.1; O2SAT 97; BMI 24.1
[2022-12-29 08:09] LABS: Internal QC Validated? YES +Cl - CLEAR BKGD; Pregnancy, Urine Negative Negative
[2022-12-29] MEDS: Lactated Ringers 1,000 ML 15 ML IV (08:11)
--- NOTE | 2022-12-29 08:30 | EGD_PTH ---
PATIENT: ISIDRA LIM LOC: EN U#:[id number] AGE/SX: 37/F ROOM: RE12/29/[address]: Dr. Calos Sterling MD : 1985 BED: DIS: 12/29/2022 SPEC #: [id number] RECD: 12/29/22 11:49 STATUS: HARPAL LEA #: [id number] PRAVEEN: 12/29/22 08:[address]: Calos Sterling DEPT: SURGICAL PATHOLOGY RECD BY: Malathi Daley ENTERED: 12/29/22 13:26 SP TYPE: EGD BIOPSY MANDEEP DR: Dr. Olman Dickey DO Tissues: A - Gastric mucous membrane B - Esophagus, NOS Procedures: Special Stain Group II Surgery Specimen Level IV Alcian Blue/PAS (control) HEADER OPERATION: Colonoscopy, EGD PRE-OP DIAGNOSIS: Weight loss, constipation, bloating, gallstones, anemia TISSUE SUBMITTED: A. Gastric antrum, B. Z line biopsy MICROSCOPIC DIAGNOSIS A. Gastric antrum, biopsy: Mild gastritis. See microscopic description and comment. B. Z line, biopsy: Fragments of gastroesophageal mucosa with chronic inflammation and changes consistent with gastroesophageal reflux disease. Intestinal metaplasia (goblet cell metaplasia) not identified. See comment. SJ: 12/30/2022 COMMENT A. The results of immunohistochemistry for Helicobacter pylori will be reported separately ([id number]). B. Alcian blue/PAS stain with matched control is used in the evaluation of the specimen. MICROSCOPIC DESCRIPTION Slides are reviewed. The specimen shows fragments of gastric mucosa with chronic inflammatory cell infiltrates in the lamina propria consisting of lymphocytes and plasma cells, consistent with mild chronic gastritis. GROSS DESCRIPTION A. Received is one container labeled with the patient name and designated gastric antrum. The specimen consists of one irregular fragment of light childers soft tissue that measures 0.2 x 0.2 x 0.1 cm. The specimen is totally submitted in one cassette. B. Received is one container labeled with the patient name and designated Z line. The specimen consists of multiple irregular fragments of light childers soft tissue that in aggregate measure 1 x 0.3 x 0.1 cm. The specimen is totally submitted in one cassette. / GARY:melchor 12/29/22 TC:3 CPT: 13629 x2, 87336
--- NOTE | 2022-12-29 08:44 | PCM.HP.BLA ---
History and Physical Date of Admission: 12/29/22 Date of Service: 10/05/22 MR#: [id number] Acct: [id number] Name: ISIDRA LIM Rep #: [id number] : 1985 Provider: Dr. Calos Sterling MD Age/Sex: 36/F Location: [facility] Status: Signed Intake Vital Signs 10/06/2307:45 Height 5 ft 7 in Weight: 153 lb BMI 23.9 BP 104/64 Blood Pressure Location Rt radial Position Sitting Respiration 18 Pulse 80 Pulse Source Monitor Temp 97.7 F L Temp Source Temporal Intake Visit Reasons: GALLBLADDER Chief Complaint: Unintentional wt loss [employer]er Required: No Is patient in pain?: No Allergies promethazine [From Phenergan] Allergy (Verified 10/05/22 08:47) Vomiting Medications buspirone 5 mg tablet 5 mg PO ONCE PRN 01/17/22 [History Confirmed 10/05/22] desmopressin 0.2 mg tablet (DDAVP) 0.2 mg PO ONCE 01/17/22 [History Confirmed 10/05/22] docusate sodium 100 mg capsule 100 mg PO BID 01/17/22 [History Confirmed 10/05/22] lamotrigine 150 mg tablet 150 mg PO BID 01/17/22 [History Confirmed 10/05/22] oxybutynin chloride 5 mg tablet,extended release 24 hr 5 mg PO DAILY 01/17/22 [History Confirmed 10/05/22] albuterol sulfate 90 mcg/actuation aerosol inhaler 2 puff inhalation Q6H PRN 02/16/22 [History Confirmed 10/05/22] lorazepam 1 mg tablet 1 mg PO DAILY PRN 02/16/22 [History Confirmed 10/05/22] pediatric multivitamin no.7-folic acid 100 mcg chewable tablet (Flintstones Multi-Vitamins Gummies) tab PO 04/12/22 [History Confirmed 10/05/22] levothyroxine 75 mcg tablet 75 mcg PO DAILY #30 tabs 09/05/22 [Rx Confirmed 10/05/22] PFSH Medical History (Updated 10/05/22 @ 18:[address] Calos Sterling MD) Abnormal weight loss Anxiety Depression Epilepsy Folate deficiency Lois's thyroiditis Iron deficiency Left anterior knee pain Narcotic addiction Schizophrenia Seasonal allergies Seizure disorder Thyroid enlargement Weight loss Surgical History H/O knee surgery Family History Mother COPD (chronic obstructive pulmonary disease) Social History household members: spouse and children number of children: 1 Smoking Status: Current every day smoker tobacco type: cigarettes Tobacco: How many years used: 20 second hand exposure: Yes alcohol intake: former details: recovering alcoholic substance use type: former substance user seatbelt use: never HPI HPI HPI: Patient is a 36-year-old female who presents for abdominal pain and weight loss with ultrasound of the right upper quadrant showing cholelithiasis. They are referred for surgical consultation from Dr. Hernandez of gastroenterology. Patient presents today with her son and . They relate that she has lost approximately 100 pounds since 2019. They state this was time which there son was born. Patient's noticed that this is similar to an 85 pound weight loss she experienced during the course of her . She states to that she has tried several medications for her gallbladder, but reports a allergic reaction to 1 of these medications and no relief of symptoms. She denies any pain with this weight loss. She states that after eating it feels like her stomach gets very tight. She notes this occurs immediately with eating. She denies any associated nausea, but does have some bloating and burping. She states this is affected her appetite and that she finds only Ramen noodles to the helpful. She denies any awareness of food allergies. She states that her activity level has remained relatively the same. Patient reports that her bowel movement frequency has significantly decreased. Whereas previously she was experiencing bowel movement every day she has now experiencing 1 every 3 to 4 days. She notes that sometimes she must strain to have a stool and sometimes this can mean a toilet time of over an hour. Intermittent with this constipation she does experience some diarrhea. She has not noticed any bleeding. She confirms that she is using a docusate stool softener. She denies any use of fiber, but does report drinking lots of water. Patient has no history of prior upper or lower endoscopy. Patient is not clear on her family history as her relatives have not been very forthcoming with some other diagnoses, but she is not aware of any inflammatory bowel disease diagnoses or colon cancer diagnoses. Previous work-up has included: Right upper quadrant ultrasound 08/03/2022 which showed evidence of cholelithiasis without further evidence of cholecystitis. Additionally, patient underwent normal gastric emptying study on July 25, 2022. Prior to this she underwent stool studies with normal ova and parasites exam 04/23/2022. She denies any history of acid reflux or heartburn. She denies any personal history of peptic ulcers. Patient's reports that with her prior weight loss she was found to have a number of active electrolyte abnormalities including hypercalcemia and once this was corrected she began regaining weight. Patient has present tobacco use, but is a recovered drug user. ROS General General: Yes weight change and fatigue; No appetite, colon cancer, breast cancer or weakness Additional Details: Weight loss HEENT HEENT: No difficulty swallowing, eye injury, eye surgery, swollen glands or hoarseness Endo Endocrine: Yes thyroid disease; No diabetes mellitus, thyroid cancer, Hair loss, heat intolerance or cold intolerance Skin Skin: Yes changing moles; No rash Breast Breast: No left breast lump, right breast lump, nipple discharge, breast pain, abnormal mammogram, abnormal US or breast enlargement Musc Musculoskeletal: Yes arthritis; No back problems, rheumatoid arthritis, gout or joint pain Cardio Cardiovascular: No murmur, pacemaker, heart disease, atrial fibrillation, high blood pressure, heart attack, heart stent, palpitations, shortness of breat with exertion or chest pain Psych Psychiatric: Yes depression and anxiety; No hearing voices Resp Respiratory: No shortness of breath, Yes sleep apnea, No cough, No COPD, Yes asthma, No emphysema and No wheezing Gastro Gastrointestinal: No abdominal pain, No nausea or vomiting, No diarrhea, No constipation, No blood in stool, Yes acid reflux, Yes hemorrhoids, No ulcers, Yes gallbladder problem and No black,tarry stools Meir Hematologic: No blood thinners, No blood disorders, No bleeding, No anemia and No blood clots Neuro Neurologic: No system reviewed and no additional complaints, except as documented, No as per HPI, No abnormal gait, No abnormal hearing, No abnormal movements, No abnormal speech, No behavioral changes, No burning sensations, No confusion, No convulsions, No disequilibrium, No dizziness, No localized weakness, No frequent falls, No headache(s), No lack of coordination, No loss of vision, No memory loss, No numbness, No other visual disturbances, No radicular pain, No restless legs, No sensory deficit, No syncope, No tingling, No tremor(s), No weakness and No other Exam Const General: cooperative, anxious and frail appearing Orientation: alert, awake and oriented x3 Resp Effort & Inspection: normal respiratory effort GI Other: No significant abdominal striae, nondistended, soft, nontender to palpation x4 quadrants Assessment and Plan Assessment and Plan (1) Weight loss: Status: Acute Comment: Patient with marked (approximately 100 pounds) weight loss in the last 4 years. No discernible cause as of yet despite work-up initiated by gastroenterology. Patient denies pain as the cause of her decreased appetite. She complains more of a bloating sensation and tightness of her stomach. This is not suggestive to me of gallbladder etiology and her exam is further unconvincing. Her gastric emptying study performed in July was normal, but she has not yet undergone upper endoscopy for evaluation. I believe this is warranted to rule out possible H. pylori or ulcer disease. Plan: EGD under local MAC (2) Constipation: Status: Acute Comment: Patient describing recent constipation with previous normal bowel function. She is also describing abnormal toilet time in excess of an hour. With these changes and patient's weight loss noted above, recommend proceeding with colonoscopy. Given her constipation, I recommended a 2-day prep in anticipation of this procedure. Plan: Diagnostic colonoscopy alongside of EGD as discussed above (3) Bloating: Status: Acute Comment: Patient describes this and tightness of her stomach immediately after eating. This is suggestive of possible gastric pathology. EGD recommended as above (4) Gallstones: Status: Chronic Comment: Patient with cholelithiasis per right upper quadrant ultrasound from July. This is unsurprising given her history of a much higher body weight and significant weight loss. However, I am unable to link her history to a problem with her gallbladder and her exam is also unconcerning. At this time I do not feel there is enough suspicion to warrant either cholecystectomy or further evaluation of the gallbladder. Should something in her work-up suggest otherwise, we could revisit the possibility of obtaining a HIDA scan. I have examined the patient the following changes are noted: Patient reports that she did have a tooth extraction due to a broken tooth but is now recovered. She also reports probably that she has gained 5 pounds. Otherwise her symptoms in her health history remain the same. Plan to proceed to the endoscopy suite for EGD and colonoscopy given the presentation above.
--- NOTE | 2022-12-29 09:58 | OP.EGD_ITS ---
Patient Name: Melly Santiago Procedure Date: 12/29/2022 8:36 AM Date of : 1985 Age: 37 Procedure: Upper GI endoscopy Indications: Abdominal bloating, Weight loss Providers: Calos Sterling MD Referring MD: Olman Dickey Do Medicines: See the Anesthesia note for documentation of the administered medications Patient Profile: Refer to note in patient chart for documentation of history and physical. Patient has symptoms of chronic epigastric abdominal pain and chronic nausea. Complications: No immediate complications. Estimated blood loss: Minimal. Procedure: Pre-Anesthesia Assessment: - The heart rate, respiratory rate, oxygen saturations, blood pressure, adequacy of pulmonary ventilation, and response to care were monitored throughout the procedure. After obtaining informed consent, the endoscope was passed under direct vision. Throughout the procedure, the patient's blood pressure, pulse, and oxygen saturations were monitored continuously. The Colonoscope was introduced through the mouth, and advanced to the second part of duodenum. The upper GI endoscopy was somewhat difficult due to the patient's discomfort during the procedure. Successful completion of the procedure was aided by increasing the dose of sedation medication. Scope In: 8:52:24 AM Scope Out: 9:16:03 AM Total Procedure Duration Time 0 hours 23 minutes 39 seconds Findings: No gross lesions were noted in the duodenal bulb, in the first portion of the duodenum and in the second portion of the duodenum. No biopsies or other specimens were collected for this exam. Localized mildly erythematous mucosa without bleeding was found in the gastric antrum. Biopsies were taken with a cold forceps for Helicobacter pylori testing. Estimated blood loss was minimal. The cardia and gastric fundus were normal on retroflexion. The Z-line was irregular and was found 40 cm from the incisors. Biopsies were taken with a cold forceps for histology. Estimated blood loss was minimal. The exam was otherwise without abnormality. Impression: - No gross lesions in the duodenal bulb, in the first portion of the duodenum and in the second portion of the duodenum. No specimens collected. - Erythematous mucosa in the antrum. Biopsied. - Z-line irregular, 40 cm from the incisors. Biopsied. - The examination was otherwise normal. Recommendation: - Discharge patient to home (via wheelchair). - Resume previous diet today. - Use Protonix (pantoprazole) 40 mg PO BID today. - Await pathology results. - Telephone my office for pathology results in 1 week. - Continue present medications. Procedure Code(s): --- Professional --- 99975, Esophagogastroduodenoscopy, flexible, transoral; with biopsy, single or multiple Diagnosis Code(s): --- Professional --- K31.89, Other diseases of stomach and duodenum K22.89, Other specified disease of esophagus R14.0, Abdominal distension (gaseous) R63.4, Abnormal weight loss CPT copyright 2021 [employer]. All rights reserved. The codes documented in this report are preliminary and upon planogrammer review may be revised to meet current compliance requirements. Calos Sterling MD 12/29/2022 9:58:42 AM This report has been signed electronically. Number of Addenda: 0 Note Initiated On: 12/29/2022 8:36 AM
--- NOTE | 2022-12-29 09:59 | OP.CCLET_ITS ---
12/29/2022 Olman Dickey Do Re : Upper GI endoscopy procedure for Melly Santiago Dear Keli This procedure was performed on December. My impressions and recommendations are as follows: Impressions : - No gross lesions in the duodenal bulb, in the first portion of the duodenum and in the second portion of the duodenum. No specimens collected. - Erythematous mucosa in the antrum. Biopsied. - Z-line irregular, 40 cm from the incisors. Biopsied. - The examination was otherwise normal. Recommendations : - Discharge patient to home (via wheelchair). - Resume previous diet today. - Use Protonix (pantoprazole) 40 mg PO BID today. - Await pathology results. - Telephone my office for pathology results in 1 week. - Continue present medications. My findings are described in the full procedure note, which is enclosed. If I can be of further assistance, please feel free to contact me at Doctor phone number(s): , Work: . Sincerely, Calos Sterling MD 12/29/2022 9:58:42 AM This report has been signed electronically.
[2022-12-29 10:00] VITALS: BP 96/46; BP 99/36; PULSE 77; RESP 16; TEMP 36.6; O2SAT 100
--- NOTE | 2022-12-29 10:04 | OP.COLON_ITS ---
Patient Name: Melly Santiago Procedure Date: 12/29/2022 9:16 AM Date of : 1985 Age: 37 Procedure: Colonoscopy Indications: Epigastric abdominal pain, Constipation, Weight loss Providers: Calos Sterling MD Referring MD: Olman Dickey Do Medicines: See the Anesthesia note for documentation of the administered medications Patient Profile: Refer to note in patient chart for documentation of history and physical. Patient has symptoms of chronic epigastric abdominal pain and chronic nausea. Last Colonoscopy: none. The patient's first colonoscopy is today. Complications: No immediate complications. Estimated blood loss: None. Procedure: Pre-Anesthesia Assessment: - The heart rate, respiratory rate, oxygen saturations, blood pressure, adequacy of pulmonary ventilation, and response to care were monitored throughout the procedure. After I obtained informed consent, the scope was passed under direct vision. Throughout the procedure, the patient's blood pressure, pulse, and oxygen saturations were monitored continuously. The Colonoscope was introduced through the anus and advanced to the cecum, identified by appendiceal orifice and ileocecal valve. The colonoscopy was somewhat difficult due to poor bowel prep and significant looping. Successful completion of the procedure was aided by straightening and shortening the scope to obtain bowel loop reduction, applying abdominal pressure and lavage. The patient tolerated the procedure fairly well. The quality of the bowel preparation was adequate to identify polyps greater than 5 mm in size. Scope In: 9:19:04 AM Scope Withdrawal Time 0 hours 14 minutes 16 seconds Scope Out: 9:49:30 AM Total Procedure Duration Time 0 hours 30 minutes 26 seconds Findings: Skin tags were found on perianal exam. The entire examined colon appeared normal on direct and retroflexion views. Impression: - Perianal skin tags found on perianal exam. - The entire examined colon is normal on direct and retroflexion views. - No specimens collected. Recommendation: - Discharge patient to home (via wheelchair). - Repeat colonoscopy in 10 years for screening purposes. - Telephone my office for study results in 1 week. - Continue present medications. Procedure Code(s): --- Professional --- 30330, Colonoscopy, flexible; diagnostic, including collection of specimen(s) by brushing or washing, when performed (separate procedure) Diagnosis Code(s): --- Professional --- K64.4, Residual hemorrhoidal skin tags R10.13, Epigastric pain K59.00, Constipation, unspecified R63.4, Abnormal weight loss CPT copyright 2021 [employer]. All rights reserved. The codes documented in this report are preliminary and upon senior landscape architect review may be revised to meet current compliance requirements. Calos Sterling MD 12/29/2022 10:04:25 AM This report has been signed electronically. Number of Addenda: 0 Note Initiated On: 12/29/2022 9:16 AM
--- NOTE | 2022-12-29 10:04 | OP.CCLET_ITS ---
12/29/2022 Olman Dickey Do Re : Colonoscopy procedure for Melly Santiago Dear Keli This procedure was performed on December. My impressions and recommendations are as follows: Impressions : - Perianal skin tags found on perianal exam. - The entire examined colon is normal on direct and retroflexion views. - No specimens collected. Recommendations : - Discharge patient to home (via wheelchair). - Repeat colonoscopy in 10 years for screening purposes. - Telephone my office for study results in 1 week. - Continue present medications. My findings are described in the full procedure note, which is enclosed. If I can be of further assistance, please feel free to contact me at Doctor phone number(s): , Work: . Sincerely, Calos Sterling MD 12/29/2022 10:04:25 AM This report has been signed electronically.
[2022-12-29 10:05] VITALS: BP 111/59; BP 96/46; PULSE 72; RESP 16; O2SAT 100
[2022-12-29 10:10] VITALS: BP 111/62; BP 96/46; PULSE 65; RESP 16; O2SAT 99
[2022-12-29 10:15] VITALS: BP 108/54; BP 96/46; PULSE 59; RESP 16; TEMP 36.4; O2SAT 100
[2022-12-29 10:49] VITALS: BP 96/46
== END 2022-12-29 11:00 | disposition home or self-care (01) ==
LOC: EN 07:32 → AC 07:34
PROVIDERS: Anesthesiology; PCP Student in an Organized Health Care Education/Training Program; Referring Provider Student in an Organized Health Care Education/Training Program; Visit Provider Surgery
PROC: 0DJD8ZZ Inspection of Lower Intestinal Tract, Via Natural or Artificial Opening Endoscopic (ICD-10-PCS; CPT 45378; principal; 2022-12-29 08:25)
DX: K29.70 Gastritis, unspecified, without bleeding (principal); K80.20 Calculus of gallbladder without cholecystitis without obstruction; F17.210 Nicotine dependence, cigarettes, uncomplicated; K64.4 Residual hemorrhoidal skin tags; Z79.890 Hormone replacement therapy; Z79.899 Other long term (current) drug therapy; E07.9 Disorder of thyroid, unspecified; K21.9 Gastro-esophageal reflux disease without esophagitis; J45.909 Unspecified asthma, uncomplicated
CPT/HCPCS: 45378; 43239; 81025; 88305; 88313; 88342; J7120; J2405

== ENCOUNTER → 2023-01-23 | Outpatient (CLI) | payer MEDICAID, SELFPAY ==
[2023-01-23 16:17] LABS: ALB/GLOB Ratio 1.2 RATIO (0.9-2.4); AST(SGOT) 13 U/L (15-37); Alanine Aminotransfer ALT/SGPT 22 U/L (13-56); Albumin, Serum 4.1 g/dL (3.2-5.0); Alkaline Phosphatase 84 U/L (45-117); Anion Gap 3 (5-15); BUN 11 mg/dL (7-18); BUN/Creat Ratio 15.6 RATIO (10-20); Chloride 109 mmol/L (98-107); Creatinine, Serum 0.71 mg/dL (0.55-1.02); EST Glomerular Filtration Rate 99 mL/min (>60); Est Glom Filt Rate - Afr Amer 120 mL/min (>60); Globulin 3.3 g/dL (2.2-4.2); Glucose 97 mg/dL (74-106); Lipase 27 U/L (13-75); Potassium 4.1 mmol/L (3.5-5.1); Protein, Total 7.4 g/dL (6.4-8.2); Sodium Level 141 mmol/L (136-145)
== END | disposition home or self-care (01) ==
LOC: PAVLAB 15:39
PROVIDERS: PCP Student in an Organized Health Care Education/Training Program; Referring Provider Surgery; Visit Provider Surgery
DX: R63.4 Abnormal weight loss (principal); K21.9 Gastro-esophageal reflux disease without esophagitis; K59.00 Constipation, unspecified; R14.0 Abdominal distension (gaseous)
CPT/HCPCS: 36415; 80053; 83690

== ENCOUNTER → 2023-02-08 | Outpatient (CLI) | payer MEDICAID, SELFPAY ==
--- NOTE | 2023-02-08 11:14 | SP.MBSS_ITS ---
Modified Barium Swallow Patient Information Study Date: 02/08/23 Study Time: 13:00 Direct Billable Minutes: 67 Total Minutes procedure & reportin Diagnosis: Dysphagia (R13.10) Referring Physician: Calos Sterling Reason for Referral: Objectively assess swallow function, risk for aspiration, and determine recommendations for least restrictive diet textures and compensatory strategies to improve safety of swallow. Medical History: PMH: epigastric pain, gastric reflux, weight loss, schizophrenia, and epilepsy (SEE EMR for full PMH). For the past two years, the patient has had odynophagia from her throat down to her stomach when she swallows, but recently it has worsened to 6/10 pain for any food and drink. At times, she feels food get caught in her lower throat. She manages reflux by avoiding spicy food, no medication. Occasionally, drinks will cause coughing and feel like they go down the wrong way. Current Diet Ordered: Regular textures / Thin liquids Dentition: WNL Mental Status: WNL Respiratory Status: Oxygenating on Room Air Penetration-Aspiration Scale Penetration-Aspiration Scale: OBJECTIVE ASSESSMENT OF SWALLOW FUNCTION (QUANTITATIVE ? PER TRIAL): PENETRATION / ASPIRATION SCALE (WHITNEY): 1 = does not enter airway 2 = enters airway/above vocal folds/ejected 3 = enters airway/above vocal folds/not ejected 4 = enters airway/contacts vocal folds/ejected 5 = enters airway/contacts vocal folds/not ejected 6 = enters airway/below vocal folds/ejected 7 = enters airway/below vocal folds/not ejected despite effort 8 = enters airway/below vocal folds/no effort VIDEOFLOROSCOPIC SCALE SCORE (WHITNEY): Grade I = aspiration of material that has penetrated into the laryngeal vestibule, intact cough reflex Grade II = aspiration < 10 % of the bolus, intact cough reflex Grade III = aspiration of < 10 % of the bolus, reduced cough reflex or aspiration of > 10 % of the bolus, intact cough reflex Grade IV = aspiration of > 10 % of the bolus, reduced cough reflex Penetration-Aspiration Scale Score Thin Liquid via teaspoon: Result: 1= does not enter airway Thin Liquid via teaspoon Trial 2: Result: 1= does not enter airway Thin Liquid via large sequential sips by cup: Result: 2= enter airway/above vocal folds/ejected [place] thick liquid via single sip by cup: Result: 1= does not enter airway Pudding via teaspoon with esophageal screen: Result: 1= does not enter airway 1/2 Cookie with esophageal screen: Result: 1= does not enter airway Thin liquids via sequential sips from straw with esophageal screen: Result: 2= enter airway/above vocal folds/ejected Oral Phase Labial Seal: No Labial Escape Tongue Control During Bolus Hold: Posterior escape of less than half of bolus Bolus Preparation/Mastication: Timely and efficient chewing and mashing Bolus Transport/Lingual Motion: Delayed initiation of tongue motion Oral Residue: Trace residue lining oral structures Pharyngeal Phase Initiation of Pharyngeal Swallow: Bolus head in pyriforms Soft Palate Elevation: No bolus between soft palate and pharyngeal wall Laryngeal Elevation: Comp. Superior move thyroid cart w/comp. apprx arytenoid cart-epig pet Anterior Hyoid Excursion: Complete anterior movement Epiglottic Movement: Complete inversion Laryngeal Vestibule Closure at Height of Swallow: Incomplete; narrow column of air/contrast in laryngeal vestibule (trace laryngeal penetration of sequential sips with full ejection) Pharyngeal Stripping Wave: Present - complete Pharyngoesophageal Segment Opening: Complete distension and complete duration; no obstruction of flow Tongue Base Retraction: Narrow column of contrast between tongue base & post. pharyngeal wall Pharyngeal Residue: Trace residue within or on pharyngeal structures Esophageal Phase Esophageal Clearance: Esophageal retention Diagnosis/Impression Diagnosis: Oropharyngeal swallow function grossly WNL Impression: Oropharyngeal swallow function grossly WNL. Min posterior loss of large liquid boluses to the pyriforms prior to swallow onset; however, patient achieved good airway closure and demonstrated trace penetration of large, sequential thin liquid sips with full ejection from the laryngeal vestibule. No aspiration observed. Trace oral and pharyngeal residues after the swallow. Mild esophageal retention of pudding and cookie in the upper and mid esophagus; however, it effectively cleared with thin liquid wash. Recommendations Diet: Regular Textures and Thin Liquids Compensatory Strategies: Small Bites, Small Sips, Slow Rate, Alternate bites/solids and sips/liquids, Sitting upright and Remain sitting upright for 30 minutes after PO intake Recommend Repeat Modified Barium Swallow: No Need for Skilled Speech Therapy Services: No Recommended Referrals: GI Consult (Consider GI consult due to esophageal retention of cookie and pudding in upper and mid esophagus - liquid wash did effectively clear retention.) Education Completed: 1. Described result of evaluation. Status Active ST Patient: Active Contact Information [facility] [place] Speech Therapy:: Kamala Ochoa M.A. [facility]PROC[facility]ING TECHNICIAN Speech-Language Pathologist [address] [address] [email or web address] [phone]
== END | disposition home or self-care (01) ==
LOC: RAD 12:32
PROVIDERS: PCP Student in an Organized Health Care Education/Training Program; Referring Provider Surgery; Visit Provider Surgery
DX: K21.9 Gastro-esophageal reflux disease without esophagitis (principal); R14.0 Abdominal distension (gaseous); K59.00 Constipation, unspecified; R63.4 Abnormal weight loss
CPT/HCPCS: 74230; 92611

== ENCOUNTER → 2023-07-07 | Outpatient (CLI) | payer MEDICAID, SELFPAY | END | disposition home or self-care (01) | LOC: PSN 12:41 | PROVIDERS: PCP Student in an Organized Health Care Education/Training Program; Referring Provider Internal Medicine Critical Care Medicine; Visit Provider Internal Medicine Critical Care Medicine | DX: R06.02 Shortness of breath (principal) | CPT/HCPCS: 94060; 94726; 94729 ==

== ENCOUNTER → 2023-07-11 | Outpatient (CLI) | payer MEDICAID, SELFPAY ==
[2023-07-11 13:10] VITALS: PULSE 74; PULSE 76; PULSE 91; PULSE 92; PULSE 93; PULSE 94; O2SAT 98
--- NOTE | 2023-07-13 08:54 | PCM.PSN.6M ---
PSN 6 Minute Walk Test 6 Minute Walk Test 6 Minute Walk Test: 6 Minute Walk Test PSN:6-Minute Walk Test Start: 07/11/23 13:24 Freq: Status: Active Protocol: [id number].6MINW Document 07/11/23 13:10 AE (Rec: 07/11/23 13:29 [facility] Desktop) 6 Minute Walk Test Date Performed 07/11/23 Time Performed 13:10 Height 5 ft 7 in Weight: 150 lb Weight in Pounds 150.[address]: Dr Root Assistive device used: None Pre-test Oxygen Delivery Method Room Air Pulse Ox 98 Pulse Rate (60-100) 76 Dyspnea Denise Scale (0-10) 0 Exertion Denise Scale (6-20) 6 1st minute Oxygen Delivery Method Room Air Pulse Ox 98 Pulse Rate (60-100) 94 2nd minute Oxygen Delivery Method Room Air Pulse Ox 98 Pulse Rate (60-100) 92 3rd minute Oxygen Delivery Method Room Air Pulse Ox 98 Pulse Rate (60-100) 92 4th minute Oxygen Delivery Method Room Air Pulse Ox 98 Pulse Rate (60-100) 91 5th minute Oxygen Delivery Method Room Air Pulse Ox 98 Pulse Rate (60-100) 93 6th minute Oxygen Delivery Method Room Air Pulse Ox 98 Pulse Rate (60-100) 94 Dyspnea Denise Scale (0-10) 0.5 Exertion Denise Scale (6-20) 13 Post-test Oxygen Delivery Method Room Air Pulse Ox 98 Pulse Rate (60-100) 74 Full Laps Walked 19 Partial Lap, Number of Tiles Walked 0 Total Distance Walked (ft) 1121 Interpretation Interpretation: The patient ambulated 1121 feet over the course of 6 minutes beginning on room air without assistive devices. Pretesting oxygen saturation was noted to be 98% on room air. With ambulation, the micki oxygen saturation was 98%. There was no significant exertional oxygen desaturation. Recommendations Recommendations: There is no indication for the use of supplemental oxygen at this time.
== END | disposition home or self-care (01) ==
LOC: PSN 12:50
PROVIDERS: PCP Student in an Organized Health Care Education/Training Program; Referring Provider Internal Medicine Critical Care Medicine; Visit Provider Internal Medicine Critical Care Medicine
DX: R06.02 Shortness of breath (principal)
CPT/HCPCS: 94618

== ENCOUNTER → 2023-07-21 | Outpatient (CLI) | payer MEDICAID, SELFPAY ==
--- NOTE | 2023-07-21 12:42 | CT_ITS ---
STUDY: CT CHEST WITH CONTRAST REASON FOR EXAM: Female, 37 years old. Abnormal stress. Cardiac over read examination. RADIATION DOSAGE (If Supplied By Facility): CTDIvol = ( 366.72 ) mGy, DLP = ( 1336.75 ) mGycm TECHNIQUE: Transaxial imaging was performed following intravenous administration of IV 60mL Isovue-370. Individualized dose optimization techniques were used for this CT. COMPARISON: No relevant priors. FINDINGS: CHEST 3 mm calcified granuloma in the posterior aspect of the right upper lobe abutting the right minor fissure as seen on axial image #27. There is no demonstrated pleural abnormality. Normal heart and pericardium. Normal mediastinum. Normal hilar regions. Normal unenhanced pulmonary arteries. Normal aorta arch and descending thoracic aorta. Normal osseous structures. There is no demonstrated abnormality of the visualized upper abdomen. CT/Limited Chest CT Cardiac Only IMPRESSION: Normal enhanced CT chest T abdomen examination. Electronically Signed: Sanjeev Phillips MD at 12:33 EDT ,
[2023-07-21 12:54] VITALS: BP 97/50; PULSE 58; RESP 14; O2SAT 99; BMI 24.1
[2023-07-21 13:21] VITALS: BP 107/64; PULSE 64; RESP 14
--- NOTE | 2023-07-21 16:39 | CCTA.WCONT ---
CCTA w/Cont Coronary Arteries Date of Study:: 07/21/23 Abnormal stress test. Coronary Calcium Scoring: High-resolution Computed Tomographic imaging of the chest was performed on [07/21/23 ], with particular attention paid to the coronary arteries. Intravenous contrast agent was administered per protocol and images reconstructed and displayed. There is some misregistration artifact noted LEFT MAIN CORONARY ARTERY: This arises from the left coronary cusp and bifurcates into the left anterior descending artery and left circumflex artery [] LEFT ANTERIOR DESCENDING CORONARY ARTERY: Left anterior descending artery is a medium size vessel and courses around the apex of the left ventricle. No significant atherosclerotic plaquing is noted. [] LEFT CIRCUMFLEX CORONARY ARTERY: No significant atherosclerotic plaquing is noted in this vessel. [] RIGHT CORONARY ARTERY: Dominant right coronary artery with no significant atherosclerotic plaquing noted. Conclusion: CT coronary angiography demonstrating no significant obstruction noted.
== END | disposition home or self-care (01) ==
PROVIDERS: PCP Student in an Organized Health Care Education/Training Program; Referring Provider Nurse Practitioner Family; Visit Provider Nurse Practitioner Family
DX: R07.89 Other chest pain (principal); R94.39 Abnormal result of other cardiovascular function study
CPT/HCPCS: 75574; 76380; Q9967

== ENCOUNTER → 2023-09-28 | Outpatient (CLI) | payer MEDICAID, SELFPAY ==
--- NOTE | 2023-09-28 06:31 | CT_ITS ---
INDICATION: Fever and cough EXAMINATION: CT CHEST WITHOUT CONTRAST - CT Chest W/O Contrast Injection TECHNIQUE: Helically acquired images were obtained of the chest. A radiation dose optimization technique was used for this scan. IV Contrast dosage and agent: None. COMPARISON: CT heart from 07/21/2023. Previous plain films FINDINGS: LUNGS, PLEURA AND LARGE AIRWAYS: Lung windows show the lungs to be normally expanded. There is no organized infiltrate, effusion, or suspicious noncalcified mass or nodule. There is a 2 mm calcified pleural-based granuloma in the right upper lobe on axial image 34. There is a 2 mm noncalcified nodule in the right upper lobe abutting the major fissure on axial image 50, and a 3 mm calcified granuloma abutting the minor fissure on axial image 68.. THYROID: No thyroid lesions. HEART AND PERICARDIUM: Heart size is normal. No pericardial effusion. CORONARY ARTERIES: Coronary artery calcification VESSELS: Thoracic aorta is not dilated. MEDIASTINUM AND MANOLO: No mediastinal or hilar adenopathy. Esophagus is unremarkable. No hiatal hernia. UPPER ABDOMEN: No acute pathology. BONES: No suspicious lytic or blastic abnormality. CT/Chest without Contrast IMPRESSION: No acute pulmonary process 2 mm noncalcified nodular density in the right upper lobe abutting the major fissure on axial image 50. Lung-RADS score: 2 - Benign Appearance or Behavior. Recommend continued annual screening with a low-dose CT (LDCT) in 12 months. Tiny calcified granulomata also noted in the right lung. No specific follow-up needed No suspicious adenopathy Electronically Signed: Jose Luis Mueller MD at 9:02 EDT ,
== END | disposition home or self-care (01) ==
LOC: CT 06:31
PROVIDERS: PCP Student in an Organized Health Care Education/Training Program; Referring Provider Nurse Practitioner Acute Care; Visit Provider Nurse Practitioner Acute Care
DX: J98.8 Other specified respiratory disorders (principal)
CPT/HCPCS: 71250

== ENCOUNTER → 2023-11-04 | Outpatient (CLI) | payer MEDICAID, SELFPAY ==
[2023-11-04 10:00] LABS: AST(SGOT) 13 U/L (15-37); Alanine Aminotransfer ALT/SGPT 25 U/L (13-56); Albumin, Serum 3.5 g/dL (3.2-5.0); Alkaline Phosphatase 77 U/L (45-117); Anion Gap 3 (5-15); BUN 10 mg/dL (7-18); Chloride 110 mmol/L (98-107); Creatinine, Serum 0.72 mg/dL (0.55-1.02); EST Glomerular Filtration Rate 98 mL/min (>60); Est Glom Filt Rate - Afr Amer 118 mL/min (>60); Globulin 3.4 g/dL (2.2-4.2); Glucose 87 mg/dL (74-106); Protein, Total 6.9 g/dL (6.4-8.2); Sodium Level 139 mmol/L (136-145)
[2023-11-04 10:06] LABS: T4 Free Direct 1.13 ng/dL (0.76-1.46); Thyroid Stim Hormone (TSH) 3.01 uIU/mL (0.358-3.74)
[2023-11-07 11:09] LABS: Lamotrigine (Lamictal) Level 3.1 ug/mL (2.0-20.0)
== END | disposition home or self-care (01) ==
LOC: LAB 08:41
PROVIDERS: Internal Medicine Endocrinology, Diabetes & Metabolism; PCP Student in an Organized Health Care Education/Training Program; Referring Provider Psychiatry & Neurology Neurology; Visit Provider Psychiatry & Neurology Neurology
DX: E03.9 Hypothyroidism, unspecified (principal); G40.909 Epilepsy, unspecified, not intractable, without status epilepticus
CPT/HCPCS: 36415; 80053; 82140; 82542; 84439; 84443

== ENCOUNTER → 2024-10-19 | Outpatient (CLI) | payer MEDICAID, SELFPAY ==
--- NOTE | 2024-10-19 10:09 | CT_ITS ---
PROCEDURE: CHEST WITHOUT CONTRAST 10/19/2024 REASON FOR EXAM: 2 MM NODULE RUL TECHNIQUE: Chest CT without contrast. Coronal and Sagittal reconstruction series were provided. One or more dose reduction techniques were used (e.g., Automated exposure control, adjustment of the mA and/or kV according to patient size, use of iterative reconstruction technique RADIATION DOSE SUMMARY: CTDlvol: 15.98 and 57.46 mGy DLP: 1336.75 mGycm COMPARISON: CT exam 09/28/2023 FINDINGS: Hardware: None Lymph nodes: None Heart and Vasculature: Normal size heart Coronary Artery Calcifications: None Lungs and Airways: 2 mm calcified pleural-based right upper lobe nodule, a benign finding Pleura: No thickening or effusions Upper Abdomen: Unremarkable Bones: Normal mineralization. No aggressive bone lesions. CT/Chest without Contrast IMPRESSION: Coronary artery calcification (CAC) is 0 LOW RISK CARDIOVASCULAR EVENT Solitary calcified 2 mm right upper lobe nodule: Lung-RADS 1 benign Reading Location: [facility]
--- OUTSIDE RECORDS SUMMARY | 2024-10-19 10:12 | XMS RPT_ITS | CCD ---
Author Organization [facility] Inform ion Partnership [facility] Care Team Providers Care Senior Research Associate Name Role Phone JESUS STONE Unavailable Unavailable MONTERO, CHAD JODY Unavailable Unavailable Montero, Chad Ho Unavailable MonteroChad bryant Primary Care Provider [phone] MONTEROCHAD BRYANT Primary Care Unavailable ARNAV CASTANEDA Attending Unavailable ARNAV CASTANEDA Admitting Unavailable MONTEROCHAD Attending Unavailable MONTERO CHAD HO Referring Unavailable MONTERO, CHAD HO Primary Care Unavailable MONTERO, CHAD HO Primary Care Unavailable GABRIELE PARRISH Attending Unavailable MONTERO, CHAD HO Primary Care Unavailable MADISON FERNANDEZ Attending Unavailable MONTERO, CHAD HO Primary Care Unavailable RAMILA MARTINEZ Attending Unavaila ROBERTO Richardson Attending Unavailable [facility], Other Unavailable PCP, NONE Primary Care Physician [facility], Other Unavailable Unavailable Primary Care Provider UnavailDR OLMAN Sandoval DO Primary Care Physician [phone] Unavailable Primary Care Provider UnavailMD [place] Attending Provider [phone] Olman Son Primary Care Provider Dr. Olman Son Referring Provider Dr. Yong Fenton Attending Provider Dr. Lon Mccabe Attending Provider [phone] Unavailable Primary Care Provider Unavailabl e [facility], Other Unavailable David, Dr. Abdul Attending Provider [phone] Dr. Olman Son Primary Care Provider [phone] Keli, Dr. Thurman Referring Provider [phone] Dr. Peterson Patterson Attending Provider [phone] MD Kings Kline Attending Provider [phone] Keli, Dr. Thurman Primary Care Provider [phone] Keli, Dr. Thurman Referring Provider [phone] Dr. Lon Mccabe Attending Provider Friend, Dr. Abdul Attending Provider [phone] Dr. Peterson Patterson Attending Provider [phone] MD Kings Kline Attending Provider [phone] Keli, Dr. Thurman Primary Care Provider [phone] Keli, Dr. Thurman Referring Provider [phone] Dr. Olman Son Primary Care Provider [phone] Keli, Dr. Thurman Referring Provider [phone] Dr. Lon Mccabe Attending Provider Dr. Peterson Patterson Attending Provider [phone] Dr. Peterson Patterson Referring Provider [phone] Dr. Shimon Sterling Attending Provider Dr. Shimon Sterling Other Provider Dr. Olman Son Primary Care Provider [phone] Dr. Olman Son Referring Provider [phone] Dr. Peterson Patterson Attending Provider Dr. Peterson Patterson Referring Provider Dr. Shimon Sterling Referring Provider [facility], Other Unavailable [phone] Olesya ETIQUETTE COACH-DEVELOPMENT TECHNICIAN, Crystal G Unavailable Dr. Olman Son Primary Care Provider [phone] Dr. Peterson Patterson Attending Provider Dr. Peterson Patterson Referring Provider [phone] ELISABETH Lucero Attending Provider Brandon Son, Dr. Thurman Referring Provider [phone] Dk, Dr. Maier Attending Provider [phone] Dk, Dr. Maier Referring Provider Dk, Dr. Maier Other Provider Dr. Chuy Ambrosio Attending Provider [phone] Olman Son DO Primary Care Provider [phone] Keli, Dr. Thurman Primary Care Provider [phone] Dr. Peterson Patterson Attending Provider [phone] Yesenia, Dr. Winkler Referring Provider [phone] ELISABETH Lucero Attending Provider Dr. Olman Lopez Referring Provider Dk, Dr. Maier Attending Provider [phone] Dk, Dr. Maier Referring Provider Dk, Dr. Maier Other Provider Dr. Chuy Ambrosio Attending Provider Fish MANAGER MECHANICAL MAINTENANCE, MANAGER MECHANICAL MAINTENANCE-C Geoffrey Referring Provider Fish MANAGER MECHANICAL MAINTENANCE, MANAGER MECHANICAL MAINTENANCE-C Geoffrey Other Provider [phone] Dr. Yong Fenton Attending Provider [facility], Other Primary Care Pr ovider Olman Son DO Primary Care Provider [phone] GEOFFREY HUTTON Attending Unavailable YVETTEAR DO, DR THURMAN Primary Care Unavailable ROMAR DO, DR THURMAN Attending Unavailable ROMAR DO, DR THURMAN Primary Care Unavailable ROMAR DO, DR THURMAN Attending Unavailable ROMAR DO, DR THURMAN Primary Care Unavailable ROMAR DO, DR THURMAN Attending Unavailable ROMAR DO, DR THURMAN Primary Care Unavailable ROMAR DO, DR THURMAN Primary Care Unavailable ROMAR DO, DR THURMAN Attending Unavailable ROMAR DO, DR THURMAN Attending Unavailable ROMAR DO, DR THURMAN Primary Care Unavailable ROMAR DO, DR THURMAN Primary Care Unavailable LUIS F KUMAR MD Attending Unavailable ROMAR DO, DR THURMAN Attending Unavailable ROMAR DO, DR THURMAN Primary Care Unavailable Olesya ETIQUETTE COACH-DEVELOPMENT TECHNICIAN, Dipika Menendez Unavailable Fish MANAGER MECHANICAL MAINTENANCE, Geoffrey Attending Unavailable Romar, Olman Primary Care Unavailable Fish MANAGER MECHANICAL MAINTENANCE, Geoffrey Referring Unavailable Romar, Olman Primary Care Unavailable Romar, Olman Referring Unavailable Lira MANAGER MECHANICAL MAINTENANCE, Michelle Attending Unavailable DkDarrion ramsey Attending Unavailable Romar, Olman Referring Unavailable Romar, Olman Primary Care Unavailable Romar, Olman Primary Care Unavailable Baddour, Peterson Attending Unavailable Baddour, Peterson Referring Unavailable Baddour, Peterson Attending Unavailable Baddour, Peterson Referring Unavailable Romar, Olman Primary Care Unavailable Baddour, Peterson Attending Unavailable Baddour, Peterson Referring Unavailable Romar, Olman Primary Care Unavailable Baddour, Peterson Attending Unavailable Baddour, Peterson Referring Unavailable Romar, Olman Primary Care Unavailable Baddour, Peterson Attending Unavailable Romar, Olman Primary Care Unavailable Baddour, Peterson Referring Unavailable Baddour, Peterson Attending Unavailable Baddour, Peterson Referring Unavailable Romar, Olman Primary Care Unavailable Romar, Olman Primary Care Unavailable Romar, Olman Referring Unavailable Lon Mccabe Attending Unavailable Romar, Olman Primary Care Unavailable Baddour, Peterson Attending Unavailable Baddour, Peterson Referring Unavailable King Lon Consulting Unavailable Romar, Olman Primary Care Unavailable Pankaj MANAGER MECHANICAL MAINTENANCE, Michelle Referring Unavailable Pankaj MANAGER MECHANICAL MAINTENANCE, Michelle Attending Unavailable DkDarrion ramsey Referring Unavailable Darrion Root Attending Unavailable Romar, Olman Primary Care Unavailable DkDarrion ramsey Referring Unavailable DkDarrion ramsey Attending Unavailable Romar, Olman Primary Care Unavailable Romar, Olman Primary Care Unavailable Romar, Olman Referring Unavailable Baddour, Peterson Attending Unavailable Romar, Olamn Primary Care Unavailable Romar, Olman Referring Unavailable Lira MANAGER MECHANICAL MAINTENANCE, Michelle Attending Unavailable Fish MANAGER MECHANICAL MAINTENANCE, Geoffrey Referring Unavailable Fish MANAGER MECHANICAL MAINTENANCE, Geoffrey Consulting Unavailable Romar, Olman Primary Care Unavailable Yong Fenton Attending Unavailable Darrion Root Consulting Unavailable DkDarrion ramsey Referring Unavailable Romar, Olman Primary Care Unavailable Chuy Ambrosio Attending Unavailable Jossy Lucero Attending Unavailable Romar, Olman Primary Care Unavailable [facility], Other Unavailable Olesya ETIQUETTE COACH-DEVELOPMENT TECHNICIAN, Dipika Menendez Unavailable [facility], Other Primary Care Pr ovider FABIOLA COATS Attending Unavailable SELF, SELF Referring Unavailable [facility], OTHER Primary Care Unavailable ROMAR DO, DR THURMAN Primary Care Unavailable ROMAR DO, DR THURMAN Attending Unavailable ROMAR DO, DR THURMAN Primary Care Unavailable ROMAR DO, DR THURMAN Attending Unavailable ROMAR DO, DR THURMAN Primary Care Unavailable ROMAR DO, DR THURMAN Attending Unavailable ROMAR DO, DR THURMAN Primary Care Unavailable ROMAR DO, DR THURMAN Attending Unavailable MCCLAIN, TRANG Attending Unavailable ROMAR, OLMAN Primary Care Unavailable ROMAR, OLMAN Primary Care Unavailable ROMAR, OLMAN Primary Care Unavailable ROMAR, OLMAN Primary Care Unavailable ROMAR, OLMAN Primary Care Unavailable ROMAR, OLMAN Primary Care Unavailable ROMAR DO, DR THURMAN Primary Care Unavailable FELICITA ETIQUETTE COACH-DEVELOPMENT TECHNICIAN, GEOFFREY Attending Unavailab le NEKKANTISTUARTPA Attending Unavailable SELF, SELF Referring Unavailable [facility], OTHER Primary Care Unavailable NEKKANTI, MIKE Attending Unavailable SELF, SELF Referring Unavailable [facility], OTHER Primary Care Unavailable [facility], OTHER Primary Care Unavailable ROMAR, OLMAN Referring Unavailable Allergies Allergy Classification Reported Allergen(s) Allergy Type Date of Onset Reaction(s) Facility Promethazine (1 source) Promethazine; Translations: [PROMETHAZINE] Drug Allergy 07-25-19 [facility] Repository (20 sources) Promethazine; Translations: [PROMETHAZINE] Drug Allergy 07-25-19 Rash, Swelling, Eruption of skin (disorder), Weal (disorder) [facility] (10 sources) *Seasonal Propensity to adverse reactions to substance 09-11-19 [facility] (20 sources) Seasonal allergy; Translations: [SEASONAL ALLERGIES] Allergy to substance 04-17-20 Other: See Comments [facility] Work Phone: (20 sources) Cetirizine; Translations: [cetirizine] Drug Allergy 06-27-19 Other: See Comments [facility] (20 sources) seasonal enviromental Allergy to substance stuffy nose, sneezing [facility] (16 sources) fluticasone; Translations: [fluticasone] Drug Allergy 06-27-19 Palpitations (finding) [facility] (11 sources) guaiFENesin; Translations: [guaifenesin] Drug Allergy 06-27-19 Vomiting (disorder) [facility] (4 sources) Environmental Allergies: Uncoded; Translations: [Environmental Allergies: Uncoded] Allergy to substance 06-27-19 sneezing [facility] (9 sources) Buprenorphine / Naloxone; Translations: [BUPRENORPHINE-NA LOXONE] Drug Allergy 02-09-20 Hives, Vomiting, Nausea and Vomiting [facility] (1 source) Cetirizine Drug Allergy 11-30-19 [facility] Repository (1 source) fluticasone Drug Allergy 11-30-19 [facility] Repository (1 source) guaiFENesin Drug Allergy 11-30-19 [facility] Repository (1 source) Promethazine Drug Allergy 11-30-19 [facility] Repository NEGATED: Highlighted row has been ruled out! (1 source) natural latex rubber; Translations: [LATEX, NATURAL RUBBER] Drug allergy (disorder) [place] NEGATED: Highlighted row has been ruled out! (1 source) No IV Contrast Allergy.; Translations: [IV Dye, Iodine Containing] Drug allergy (disorder) [place] Medications Current Medications Medication Drug Class(es) Dates Sig (Normalized) Sig (Original) albuterol 0.833 mg/ml / ipratropium bromide 0.167 mg/ml inhalation solution (5 sources) Anticholinergic, beta2-Adrenergic Agonist Start: 12-28-2023 take 1 dose by inhalation four times daily as needed for wheezing albuterol-ipratr opium 2.5 mg-0.5 mg/3 mL inhalation solution Dose = 3 mL, Inhalation, QID, PRN as needed for shortness of breath or wheezing, # 120 EA, 0 Refill(s) Start Date: 12/28/23 Status: Ordered Quantity: 120.0 Unit: EA Repeat number: 1 alpha-tocopherol acetate 30 unt / ascorbic acid 100 mg / beta carotene 1000 unt / calcium carbonate 200 mg / calcium pantothenate 7 mg / cholecalciferol 400 unt / docusate sodium 25 mg / ferrous fumarate 29 mg / folic acid 1 mg / niacinamide 15 mg / pyridoxine hydrochloride 20 mg / riboflavin 3 mg / thiamine 3 mg / vitamin b12 0.012 mg / zinc oxide 20 mg oral tablet (1 source) Vitamin B12, Vitamin D, Vitamin C Start: 11-26-2021 take 1 tablet by mouth once daily Vit-DSS-Fe Fum-FA ( 19) tablet Take 1 tablet by mouth daily. 30 tablet 3 11/26/2021 Active amoxicillin 500 mg oral capsule (1 source) Penicillin-class Antibacterial Start: 12-01-2022 End: 12-11-2022 amoxicillin 500 mg oral capsule Dose : 500 mg = 1 cap(s), Oral, TID, X 10 day(s), # 30 cap(s), 0 Refill(s), 12/11/22 9:46:00 AM EDT Start Date: 12/01/22 Stop Date: 12/11/22 Status: Ordered amoxicillin 875 mg / clavulanate 125 mg oral tablet (2 sources) Penicillin-class Antibacterial Start: 03-29-2024 End: 04-08-2024 take 1 tablet by mouth every twelve hours at mealtime amoxicillin-clav ulanate 875 mg-125 mg oral tablet 1 tab(s), Oral, q12h, with food or milk, X 10 day(s), # 20 tab(s), 0 Refill(s), 04/08/24 1:54:00 PM EST, Pharmacy: [facility], 171.5, cm, 03/29/24 13:14:00 EST, Height, 78.8, kg, 03/29/24 13:14:00 EST, Dosing Weight Start Date: 03/29/24 Stop Date: 04/08/24 Status: Ordered bacitracin 0.5 unt/mg topical ointment (5 sources) Start: 08-28-2024 End: 11-20-2024 bacitracin topical ointment Apply 1 appl, Topical, TID, As needed for open toe crack/wound, # 45 gram(s), 5 Refill(s), Pharmacy: [id number], Ointment, 169.5, cm, 08/28/24 14:28:00 EDT, Height, 78.9, kg, 08/28/24 14:28:00 EDT, Dosing Weight Start Date: 08/28/24 Stop Date: 11/20/24 Status: Ordered Quantity: 45.0 Unit: g Repeat number: 6 Start: 12-28-2023 End: 04-18-2024 bacitracin topical ointment Apply 1 appl, Topical, TID, As needed for open toe crack/wound, X 14 day(s), # 45 gram(s), 5 Refill(s), Pharmacy: [facility], Ointment, 171.5, cm, 12/28/23 11:26:00 EDT, Height, 77.4, kg, 12/28/23 11:26:00 EDT, Dosing Weight Start Date: 01/25/24 Stop Date: 04/18/24 Status: Ordered Start: 08-18-2023 End: 09-15-2023 bacitracin topical ointment Apply 1 appl, Topical, TID, As needed for open toe crack/wound, X 14 day(s), # 30 gram(s), 1 Refill(s), Pharmacy: [facility], Ointment, 171, cm, 08/18/23 13:36:00 EDT, Height, 72.9, kg, 08/18/23 13:36:00 EDT, Dosing Weight Start Date: 08/18/23 Stop Date: 09/15/23 Status: Ordered busPIRone hydrochloride 5 mg oral tablet (20 sources) Start: 01-17-2022 take 5 mg by mouth once Buspirone Active 5 MG PO ONCE January 17, 2022 12:00am Start: 09-16-2019 take 1 tablet by leigh twice daily as needed for anxiety busPIRone 5 mg oral tablet TAKE 1 TABLET BY MOUTH TWICE DAILY NEEDED FOR ANXIETY Start Date: 09/16/19 Status: Ordered Repeat number: 1 Comment on above: Take 5 mg by mouth a s needed. cephalexin 500 mg oral capsule (1 source) Cephalosporin Antibacterial Start: 019 End: 019 take 1 capsule by mouth twice daily cephALEXin (KEFLEX) 500 MG capsule Take 1 (one) capsule (500 mg total) by mouth 2 (two) times a day for 5 days . 10 capsule 0 07/25/2018 07/30/2018 Active chlorproMAZINE hydrochloride 25 mg oral tablet (20 sources) Phenothiazine Start: 023 take 1 tablet by mouth once daily chlorproMAZINE 25 MG tablet Take 1 tablet by mouth daily. 07/12/2024 Active take 1 tablet by mouth twice avelina ly chlorproMAZINE 10 MG tablet Take 1 tablet by mouth 2 times daily. Active cholecalciferol 1.25 mg oral capsule (9 sources) Vitamin D Start: 08-28-2024 End: 10-27-2024 cholecalciferol 1250 mcg (50,000 intl units) oral capsule Dose : 1,250 mcg = 1 cap(s), Oral, qWeek, with food, # 9 cap(s), 0 Refill(s), Pharmacy: [id number], 169.5, cm, 08/28/24 14:28:00 EDT, Height, kg, 08/28/24 14:28:00 EDT, Dosing Weight Start Date: 08/28/24 Stop Date: 10/27/24 Status: Ordered Quantity: 9.0 Unit: cap(s) Repeat number: 1 Start: 03-08-2024 take 1 tablet by leigh th once daily cholecalciferol 50 MCG (2000 UNIT) tablet Take 1 tablet by mouth daily. 03/08/2024 Active Start: 11-28-2022 take 50 ug by mouth once daily Cholecalciferol (Vitamin D3) Active 50 MCG PO DAILY November 28, 2022 12:00am ciclopirox 80 mg/ml topical solution (12 sources) Start: 06-20-2023 End: 06-27-2023 Ciclopirox Discontinued TOPI TANVI June 20, 2023 1:00am June 27, 2023 10:34am Start: 02-24-2023 End: 06-20-2025 ciclopirox 8% topical soluti on Apply 1 tabby, Topical, qDay, apply to affected toenails and surrounding area once daily, remove with alcohol every 7 days prior to reapplication, Apply to: toenails, X 30 day(s), # 6.6 mL, 5 Refill(s), Pharmacy: [facility], 171.5, cm, 12/28/23 11:26:00 EDT, Height, 77.4, kg, 12/28/23 11:26:00 EDT, Dosing Weight Start Date: 12/28/23 Stop Date: 06/25/24 Status: Ordered Quantity: 6.6 Unit: mL Repeat number: 6 desmopressin acetate 0.2 mg oral tablet (20 sources) Vasopressin Analog, Factor VIII Activator Start: 10-01-2024 End: 10-09-2024 take 1 tablet by mouth once daily desmopressin 0.2 MG tablet Indications: Enuresis Take 1 tablet by mouth daily. 30 tablet 5 10/09/2024 Active Start: 05-29-2024 take 1 tablet by leigh th once daily desmopressin 0.2 MG tablet Indications: Enuresis Take 1 tablet by mouth daily. 30 tablet 1 05/29/2024 Active Start: 01-31-2024 End: 03-13-2024 take 1 tablet by mouth once daily desmopressin 0.2 MG tablet Indications: Enuresis Take 1 tablet by mouth daily. 30 tablet 1 03/13/2024 Active Start: 08-04-2023 take 1 tablet by leigh th once daily desmopressin 0.2 MG tablet take 1 tablet by mouth daily. 30 tablet 1 08/04/2023 Active Start: 06-27-2023 take 1 tablet by leigh th twice daily Desmopressin (Ddavp) 0.2 mg tablet Active 0.2 MG PO TWICE A DAY June 27, 2023 10:34am Start: 08-05-2021 End: 06-27-2023 take 1 tablet by mouth once Desmopressin (Ddavp) 0.2 m g tablet Discontinued 0.2 MG PO ONCE January 17, 2022 12:00am June 27, 2023 10:37am Start: 08-11-2020 End: 07-24-2018 take 1 tablet by mouth once daily desmopressin (DDAVP) 0.2 MG tablet Take 1 tablet by mouth daily. 30 tablet 3 08/11/2020 Active Start: 09-16-2019 take 1 tablet by leigh th once daily desmopressin 0.2 mg oral tablet Take 1 tablet by mouth daily. Start Date: 09/16/19 Status: Ordered Repeat number: 1 Comment on above: Take 0.2 mg by mouth once daily. Disposable Gloves Misc (3 sources) Start: 07-09-2020 Disposable Gloves Misc 1 box disposable gloves 1 Container 11 07/09/2020 Active [facility]ME [facility] (5 sources) Start: 11-29-2022 DME [facility] See Instructions, Comfort form wrist splint right size small, Dx: G56.02, # 1 EA, 0 Refill(s), Carpal tunnel syndrome on left, 70.1 Start Date: 11/29/22 Status: Ordered Start: 06-21-2022 DME MISCellane ous See Instructions, Spacer chamber, Dx: J45.909, # 1 EA, 0 Refill(s), Pharmacy: [facility], Asthma, 172, cm, 06/21/22 13:47:00 EST, Height, 77.6, kg, 06/21/22 13:47:00 EST, Dosing Weight Start Date: 06/21/22 Status: Ordered docusate sodium 100 mg oral capsule (20 sources) Start: 08-30-2019 take 1 capsule by mouth twice daily Docusate 100 MG capsule Take 1 capsule by mouth 2 times daily. 60 capsule 3 01/31/2024 Active Comment on above: Take 100 mg by mouth twice daily. Take 1 capsule by [facility] twice daily. doxylamine succinate 10 mg / pyridoxine hydrochloride 10 mg delayed release oral tablet (1 source) Start: 07-25-2018 End: 08-24-2018 take 1 tablet by mouth once daily doxylamine-pyrido xine, vit B6, (DICLEGIS) 10-10 mg Take 1 (one) tablet by mouth daily . 30 tablet 0 07/25/2018 08/24/2018 Active Dulera 200 mcg-5 mcg/inh Metered Dose Inhaler (5 sources) Start: 12-28-2023 take 1 dose by mouth twice daily Dulera 200 mcg-5 mcg/inh Metered Dose Inhaler Dose = 2 puff(s), Inhalation, BID, rinse mouth and throat after use. per lung doctor, # 13 gram(s), 0 Refill(s) Start Date: 12/28/23 Status: Ordered Quantity: 13.0 Unit: g Repeat number: 1 Start: 12-28-2023 take 1 dose by mouth twice daily Dulera 200 mcg-5 mcg/inh Metered Dose Inhaler Dose = 2 puff(s), Inhalation, BID, rinse mouth and throat after use. per lung doctor, # 13 gram(s), 0 Refill(s) Start Date: 12/28/23 Status: Ordered fluticasone propionate 0.05 mg/actuat metered dose nasal spray (20 sources) Corticosteroid Start: 08-28-2024 End: 02-24-2025 take 1 dose nasal route once daily in the morning as needed for congestion Flonase 50 mcg/inh nasal spray Dose = 2 spray(s), Nostril, each, qAM, PRN Nasal congestion, in each nostril, # 1 EA, 5 Refill(s), Pharmacy: [id number], Allergic rhinitis, 169.5, cm, 08/28/24 14:28:00 EDT, Height, kg, 08/28/24 14:28:00 EDT, Dosing Weight Start Date: 08/28/24 Stop Date: 02/24/25 Status: Ordered Quantity: 1.0 Unit: EA Repeat number: 6 Indications: Allergic rhinitis, unspecified; Start: 06-27-2023 Fluticasone Pr opionate Active 2 SPRAY INTRANASAL DAILY June 27, 2023 10:35am Start: 06-27-2023 Fluticasone Pr opionate Active INTRANASAL DAILY June 27, 2023 9:35am Start: 06-20-2023 End: 06-27-2023 Fluticasone Propionate Discontinued INTRANASAL June 20, 2023 1:00am June 27, 2023 10:37am Start: 06-24-2022 End: 12-21-2022 take 1 puff(s) by mouth twice daily Flovent HFA 110 mcg/inh inhalation aerosol 1 puff(s), Inhalation, BID, use with spacer chamber. rinse mouth and throat after use, # 1 EA, 5 Refill(s), Pharmacy: [facility], 172, cm, 06/21/22 13:47:00 EST, Height, kg, 06/21/22 13:47:00 EST, Dosing Weight Start Date: 06/24/22 Stop Date: 12/21/22 Status: Ordered Start: 02-08-2022 End: 01-17-2024 take 1 dose nasal route once daily in the morning as needed for congestion Flonase 50 mcg/inh nasal spray Dose = 2 spray(s), Nostril, each, qAM, PRN Nasal congestion, in each nostril, # 1 EA, 5 Refill(s), Pharmacy: [facility], Allergic rhinitis, 171.6, cm, 07/21/23 8:37:00 EDT, Height, kg, 07/21/23 8:37:00 EDT, Dosing Weight Start Date: 07/21/23 Stop Date: 01/17/24 Status: Ordered Quantity: 1.0 Unit: EA Repeat number: 6 Indication: Allergic rhinitis, unspecified Start: 09-02-2019 End: 02-29-2020 take 1 dose nasal route once daily in the morning Flonase 50 mcg/inh nasal spray Dose = 2 spray(s), Nostril, each, qAM, # 16 gram(s), 5 Refill(s), Pharmacy: [facility], Allergic rhinitis, 170.2, cm, 08/30/19 8:08:00 EDT, Height, kg, 08/30/19 8:08:00 EDT, Dosing Weight Start Date: 09/02/19 Stop Date: 02/29/20 Status: Ordered fluticasone 50 M CG/ACT Suspension nasal spray 2 sprays by Does Not Apply route daily. Active take 2 spray(s) nasa l route once daily fluticasone (FLONASE) 50 mcg/actuation nasal spray Use 2 Sprays in each nostril once daily. Active Comment on above: Use 2 Sprays in each nostril once daily. folic acid 1 mg oral tablet (20 sources) Start: 08-28-2024 End: 08-23-2025 folic acid 1 mg oral tablet Dose : 1 mg = 1 tab(s), Oral, qDay, # 90 tab(s), 3 Refill(s), Pharmacy: [facility], 169.5, cm, 08/28/24 14:28:00 EDT, Height, kg, 08/28/24 14:28:00 EDT, Dosing Weight Start Date: 08/28/24 Stop Date: 08/23/25 Status: Ordered Quantity: 90.0 Unit: tab(s) Repeat number: 4 Start: 07-21-2023 End: 01-17-2024 folic acid 1 mg oral tablet Dose : 1 mg = 1 tab(s), Oral, qDay, # 90 tab(s), 1 Refill(s), Pharmacy: [facility], 171.6, cm, 07/21/23 8:37:00 EDT, Height, kg, 07/21/23 8:37:00 EDT, Dosing Weight Start Date: 07/21/23 Stop Date: 01/17/24 Status: Ordered Quantity: 90.0 Unit: tab(s) Repeat number: 2 Start: 10-31-2022 End: 01-29-2023 take 1 mg by mouth once daily Folic Acid Active 1 MG P O DAILY November 28, 2022 12:00am Start: 04-20-2020 End: 09-09-2021 take 1 tablet by mouth once daily folic acid 1 MG tablet Indications: Generalized idiopathic epilepsy and epileptic syndromes, not intractable, without status epilepticus Take 1 tablet by mouth daily. 30 tablet 5 04/20/2020 09/09/2021 Discontinued Start: 01-20-2020 End: 07-18-2020 folic acid 0.4 mg oral table t Dose : 0.4 mg = 1 tab(s), Oral, qDay, # 90 tab(s), 1 Refill(s), Pharmacy: [facility], 167.6, cm, 01/17/20 13:19:00 EDT, Height, kg, 01/17/20 13:19:00 EDT, Dosing Weight Start Date: 01/20/20 Stop Date: 07/18/20 Status: Ordered 60 actuat formoterol fumarate 0.005 mg/actuat / mometasone furoate 0.2 mg/actuat metered dose inhaler (1 source) Corticosteroid, beta2-Adrenergic Agonist Start: 06-06-2024 take 2 puff(s) by inhalation every twelve hours Dulera 200-5 MCG/ACT Aerosol Inhale 2 puffs every 12 hours. 06/06/2024 Active Incontinence Supplies Kit (1 source) Start: 10-09-2024 Incontinence Supplies Kit Please disperse enough kits to ensure that patient has two pads per day 60 kit 2 10/09/2024 Active Incontinence Supply Disposable ([facility] Underpads Day/Nght 30x36) Misc (3 sources) Start: 08-12-2020 Incontinence Supply Disposable ([facility] Underpads Day/Nght 30x36) Misc Dispense 1 package for bed protection against urinary and fecal incontinence 1 Each 11 08/12/2020 Active Incontinence Supply Disposable (En[employer] Plus Undergarments) Misc (3 sources) Start: 08-12-2020 Incontinence Supply Disposable ([employer] Plus Undergarments) Misc Extra large size pull up incontinence underwear. Change as needed for urinary and fecal incontinence. 120 Each 11 08/12/2020 Active Incontinence Supply Disposable (Underpads Extra Large) Misc (3 sources) Start: 08-12-2020 Incontinence Supply Disposable (Underpads Extra Large) Misc Dispense 1 box of 150 each for mattress protection against urinary and fecal incontinence. 1 Each 11 08/12/2020 Active lamoTRIgine 150 mg oral tablet (20 sources) Mood Stabilizer, Anti-epileptic Agent Start: 09-10-2024 take 1 tablet by mouth twice daily lamoTRIgine 150 MG tablet Indications: Generalized idiopathic epilepsy and epileptic syndromes, not intractable, without status epilepticus Take 1 tablet by mouth 2 times daily. 60 tablet 1 09/10/2024 Active Start: 01-17-2022 End: 05-04-2023 take 1 tablet by mouth twice daily lamoTRIgine 150 mg oral tablet TAKE 1 TABLET BY MOUTH TWICE DAILY Start Date: 11/29/22 Status: Ordered Repeat number: 1 Start: 08-16-2021 End: 09-09-2021 take 150 mg by mouth twice daily Lamotrigine Active 150 MG PO TWICE A DAY January 17, 2022 12:00am Start: 11-16-2020 take 1 tablet by leigh th twice daily lamoTRIgine 150 MG tablet Indications: Generalized idiopathic epilepsy and epileptic syndromes, not intractable, without status epilepticus TAKE 1 TABLET BY MOUTH TWICE DAILY 60 tablet 1 11/16/2020 Active Start: 08-30-2019 LaMICtal 100 m g oral tablet Dose : 100 mg = 1 tab(s), Oral, BID, 0 Refill(s) Start Date: 08/30/19 Status: Ordered take 1.5 tablets by mouth twice daily lamoTRIgine 100 MG tablet Take 1.5 tablets by mouth 2 times daily. Active lamoTRIgine (CHATTERJEE ICTAL) 100 mg tablet Take 150 mg by mouth twice daily. Active End: 07-24-2018 take 1 tablet by mouth once daily lamoTRIgine (LAMICTAL) 100 MG tablet Take 100 mg by mouth daily. 0 07/24/2018 Discontinued Comment on above: Take 150 mg by mouth twice daily. levothyroxine sodium 0.075 mg oral tablet (20 sources) l-Thyroxine Start: 3 take 1 tablet by mouth once daily levothyroxine 75 mcg (0.075 mg) oral tablet TAKE 1 TABLET BY MOUTH DAILY Start Date: 08/02/22 Status: Ordered Repeat number: 1 Start: 04-14-2022 End: 09-05-2022 take 75 ug by mouth once daily Levothyroxine Discontin ued 75 MCG PO DAILY July 11, 2022 10:36am September 05, 2022 9:54am Start: 04-12-2022 End: 04-12-2022 take 75 ug by mouth once daily Levothyroxine Discontin ued 75 MCG PO DAILY April 12, 2022 1:00am April 12, 2022 5:32pm Comment on above: Take 75 mcg by mouth daily before breakfast. 1 ml medroxyPROGESTERone acetate 150 mg/ml injection (20 sources) Progestin Start: medroxyPROGESTERone acetate 150 MG/ML Suspension inj vial Inject 1 mL intramuscularly every 90 Days. Next dose due 04/03/2024 02/09/2024 Active Start: 01-10-2024 End: 12-11-2024 150 mg, INTRAMUSCULAR, EVERY 12 WEEKS, 4 doses, First dose on Mon01/10/24 at 1300, Last dose on Mon09/18/24 at 1300, Hazardous Potential Reproductive Risk Drug: Use appropriate PPE. Start: 01-10-2024 End: 12-11-2024 medroxyPROGESTERone 150 mg i njection (DEPO-PROVERA) Start: 06-27-2023 Medroxyprogest erone Active 150 MG IM .[id number] June 27, 2023 10:35am Start: 06-20-2023 End: 06-27-2023 Medroxyprogesterone Disconti nued MG IM June 20, 2023 1:00am June 27, 2023 10:37am Start: 07-07-2022 End: 07-07-2022 medroxyPROGESTERone 150 mg i njection (DEPO-PROVERA) Start: 04-27-2022 End: 02-09-2024 medroxyPROGESTERone (DEPO-ID OVERA) 150 mg/mL injection Indications: Surveillance for Depo-Provera contraception Inject 1 mL intramuscularly every 10 weeks. 1 mL 4 02/09/2024 Active Start: 11-24-2021 End: 04-27-2022 medroxyPROGESTERone (DEPO-ID OVERA) 150 mg/mL injection 1 ml intramuscular injection every 11 weeks. 1 mL 4 11/24/2021 04/27/2022 Discontinued Start: 11-23-2021 End: 11-24-2021 medroxyPROGESTERone (DEPO-ID OVERA) 150 mg/mL injection Indications: Encounter for management and injection of depo-Provera Inject 1 mL intramuscularly every 12 weeks. 1 mL 3 11/24/2021 11/24/2021 Discontinued Start: 11-23-2021 End: 01-04-2024 medroxyPROGESTERone 150 mg i njection (DEPO-PROVERA) Start: 11-27-2020 End: 09-09-2021 medroxyPROGESTERone acetate 150 MG/ML Suspension Prefilled Syringe inj syringe ADMINISTER 1 ML IN THE MUSCLE 1 TIME 1 mL 0 11/27/2020 09/09/2021 Discontinued Start: 04-26-2019 End: 09-09-2021 medroxyPROGESTERone acetate (DEPO-PROVERA) injection (vial) 150 mg Comment on above: 1 ml intramuscular i njection every 11 weeks. Inject 1 mL intramus cularly every 12 weeks. 1 ml intramuscular i njection every 10 weeks. Inject 1 mL intramus cularly every 10 weeks. Inject intramuscular ly. medroxyPROGESTERone 150 mg/mL intramuscular suspension (13 sources) Start: 023 medroxyPROGESTERone 150 mg/mL intramuscular suspension INJECT 1ML INTRAMUSCULARLY EVERY 11 WEEKS Start Date: 08/02/22 Status: Ordered Repeat number: 1 Start: 08-02-2022 medroxyPROGEST ERone 150 mg/mL intramuscular suspension INJECT 1ML INTRAMUSCULARLY EVERY 11 WEEKS Start Date: 08/02/22 Status: Ordered metoclopramide 10 mg oral tablet (9 sources) Dopamine-2 Receptor Antagonist Start: 07-25-2018 End: 08-14-2018 take 1 tablet by mouth three times daily as needed for vomiting metoclopramide (REGLAN) 10 MG tablet Take 1 (one) tablet (10 mg total) by mouth 3 (three) times a day as needed (nausesa vomiting) . 20 tablet 0 07/25/2018 08/14/2018 Active Start: 07-24-2018 End: 07-25-2018 take 10 mg intravenous route every six hours as needed metoclopramide (REGLAN) injection 10 mg Start: 07-12-2018 metoclopramide (REGLAN) injection 10 mg Start: 07-04-2018 End: 07-24-2018 take 1 tablet by mouth four times daily as needed metoclopramide (REGLAN) 10 MG tablet Take 1 (one) tablet (10 mg total) by mouth 4 (four) times a day as needed . 60 tablet 0 07/04/2018 07/24/2018 Discontinued Start: 07-03-2018 metoclopramide (REGLAN) injection 10 mg mometasone furoate 1 mg/ml topical cream (1 source) Corticosteroid Start: 08-18-2023 End: 10-17-2023 mometasone 0.1% topical cream Apply 1 tabby, Topical, Daily, PRN Rash, apply a thin film to affected area once daily. Do not use occlusive dressings. After 14 days use take at least 7 days off before reapplying., X 30 day(s), # 30 gram(s), 1 Refill(s), Pharmacy: [id number], 171, cm, 08/18/23 13:36:00 EDT, Height, 72.9, kg, 08/18/23 13:36:00 EDT, Dosing Weight Start Date: 08/18/23 Stop Date: 10/17/23 Status: Ordered naproxen 500 mg oral tablet (2 sources) Nonsteroidal Anti-inflammatory Drug Start: 03-16-2023 End: 03-21-2023 naproxen 500 mg oral tablet Dose : 500 mg = 1 tab(s), Oral, BID, X 5 day(s), # 10 tab(s), 0 Refill(s), 03/21/23 12:16:00 AM EST Start Date: 03/16/23 Stop Date: 03/21/23 Status: Ordered 24 hr oxybutynin chloride 5 mg extended release oral tablet (20 sources) Cholinergic Muscarinic Antagonist Start: 01-23-2023 End: 10-09-2024 take 1 tablet by mouth once daily oxyBUTYnin CR 5 MG Tab SR 24 HR tablet Indications: Mixed stress and urge urinary incontinence Take 1 tablet by mouth daily. 90 tablet 3 10/09/2024 Active Start: 01-05-2022 End: 06-20-2023 take 5 mg by mouth once daily Oxybutynin Chloride Disc ontinued 5 MG PO DAILY January 17, 2022 12:00am June 20, 2023 9:49am Start: 12-28-2021 take 1 tablet by leigh th every hour, then take 1 tablet by mouth once daily oxybutynin 10 mg/24 hr oral tablet, extended release Dose : 10 mg = 1 tab(s), Oral, qDay, # 30 tab(s), 0 Refill(s) Start Date: 12/28/21 Status: Ordered Quantity: 30.0 Unit: tab(s) Repeat number: 1 Start: 11-17-2021 take 1 tablet by leigh th once daily oxybutynin CR 10 MG Tab SR 24 HR tablet Take 1 tablet by mouth daily. 90 tablet 1 11/17/2021 Active Start: 06-09-2021 take 1 tablet by leigh th once daily oxybutynin CR 5 MG Tab SR 24 HR tablet Indications: Mixed stress and urge urinary incontinence Take 1 tablet by mouth daily. 30 tablet 5 06/09/2021 Active Start: 09-23-2020 take 1 tablet by leigh th once daily oxybutynin CR 5 MG Tab SR 24 HR tablet Indications: Mixed stress and urge urinary incontinence Take 1 tablet by mouth daily. 30 tablet 5 09/23/2020 Active 24 hr paliperidone 6 mg extended release oral tablet (20 sources) Atypical Antipsychotic Start: 01-17-2020 take 1 tablet by mouth twice daily paliperidone 6 mg oral tablet, extended release TAKE 1 TABLET BY MOUTH TWICE DAILY Start Date: 01/17/20 Status: Ordered Start: 09-27-2018 End: 09-09-2021 take 1 tablet by mouth once daily paliperidone 6 MG Tab SR 24 HR ER tablet Indications: Unspecified psychosis not due to a substance or known physiological condition Take 1 tablet by mouth daily. 15 tablet 1 09/27/2018 09/09/2021 Discontinued End: 07-24-2018 take 1 tablet by mouth once daily in the morning paliperidone (INVEGA) 9 MG 24 hr tablet Take 9 mg by mouth every morning. 0 07/24/2018 Discontinued Comment on above: Take 9 mg by mouth o nce daily. pantoprazole 20 mg delayed release oral tablet (20 sources) Proton Pump Inhibitor Start: take 2 tablets by mouth once daily pantoprazole [address] tablet DR Take 2 tablets by mouth daily. 08/08/2023 Active Start: 03-06-2023 pantoprazole 4 0 mg oral enteric coated tablet 0 Refill(s) Start Date: 03/16/23 Status: Ordered Repeat number: 1 Start: 03-06-2023 End: 06-20-2023 take 1 tablet by mouth once daily Pantoprazole Discontinued 0 .ROUTE .COMPLEX June 13, 2023 11:14am June 20, 2023 9:48am TAKE 1 TABLET BY MOUTH EVERY DAY after finishing the 40mg Start: 12-29-2022 End: 03-06-2023 take 40 mg by mouth every twelve hours Pantoprazole Discontinued 40 MG PO Q12H 28 December 29, 2022 12:00am March 06, 2023 3:33pm Pedi Multivit No.7-Folic Aci d (Flintstones Multi-Vit Gummies) 100 mcg tablet,chewable (10 sources) Start: 04-12-2022 Pedi Multivit No.7-Folic Acid (Flintstones Multi-Vit Gummies) 100 mcg tablet,chewable Active TABLET PO April 12, 2022 1:00am Start: 04-12-2022 Pedi Multivit No.7-Folic Acid (Flintstones Multi-Vit Gummies) 100 mcg tablet,chewable Active TABLET PO April 12, 2022 12:00am prazosin 1 mg oral capsule (20 sources) alpha-Adrenergic Stanley Start: 08-02-2022 take 3 capsules by mouth at bedtime prazosin 1 mg oral capsule TAKE 3 CAPSULES BY MOUTH AT BEDTIME Start Date: 08/02/22 Status: Ordered Start: 08-30-2019 End: 09-09-2021 prazosin 1 mg oral capsule D ose : 3 mg = 3 cap(s), Oral, qDay, 0 Refill(s) Start Date: 08/30/19 Status: Ordered End: 07-24-2018 take 1 capsule by mouth once daily prazosin (MINIPRESS) 2 MG capsule Take 2 mg by mouth nightly. 0 07/24/2018 Discontinued Comment on above: Take 1 mg by mouth t hree times daily. Take one capsule by mouth in the morning and two capsules at bedtime Vit-Fe Fumarate-FA ( Plus) 27-1 MG tablet (4 sources) Start: 09-09-2021 take 1 tablet by mouth once daily Vit-Fe Fumarate-FA ( Plus) 27-1 MG tablet Indications: Generalized idiopathic epilepsy and epileptic syndromes, not intractable, without status epilepticus Take 1 tablet by mouth daily. 30 tablet 11 09/09/2021 Active Start: 04-20-2020 End: 09-09-2021 take 1 tablet by mouth once daily Vit-Fe Fumarate-FA ( Plus) 27-1 MG tablet Take 1 tablet by mouth daily. 30 tablet 11 04/20/2020 09/09/2021 Discontinued (Reorder) Start: 04-20-2020 take 1 tablet by leigh th once daily Vit-Fe Fumarate-FA ( Plus) 27-1 MG tablet Take 1 tablet by mouth daily. 30 tablet 11 04/20/2020 Active rosuvastatin calcium 10 mg oral tablet (6 sources) HMG-CoA Reductase Inhibitor Start: 01-23-2024 rosuvastatin 10 mg oral tablet Dose : 10 mg = 1 tab(s), Oral, qDay, # 90 tab(s), 2 Refill(s), Pharmacy: [id number], 171.5, cm, 12/28/23 11:26:00 EDT, Height, kg, 12/28/23 11:26:00 EDT, Dosing Weight Start Date: 01/23/24 Status: Ordered Quantity: 90.0 Unit: tab(s) Repeat number: 3 Start: 09-20-2023 rosuvastatin 1 0 mg oral tablet Dose : 10 mg = 1 tab(s), Oral, qDay, # 30 tab(s), 4 Refill(s), Pharmacy: [id number], 170.2, cm, 09/20/23 13:21:00 EDT, Height, kg, 09/20/23 13:21:00 EDT, Dosing Weight Start Date: 09/20/23 Status: Ordered topiramate 25 mg oral tablet (19 sources) Start: 11-28-2022 take 1 tablet by mouth once daily Topiramate 25 MG tablet Take 1 tablet by mouth daily. 03/07/2024 Active triamcinolone acetonide 0.001 mg/mg topical ointment (1 source) Corticosteroid Start: 12-28-2023 End: 01-11-2024 triamcinolone 0.1% topical ointment Apply 1 tabby, Topical, BID, PRN Rash, apply a thin film once daily to NON OPEN rash. After 14 days use, take 7 days off before restarting, X 14 day(s), # 30 gram(s), 0 Refill(s), Pharmacy: [id number], Ointment, 171.5, cm, 12/28/23 11:26:00 EDT, Height, 77.4, kg, 12/28/23 11:26:00 EDT, Dosing Weight Start Date: 12/28/23 Stop Date: 01/11/24 Status: Ordered vitamin b12 0.5 mg oral tablet (1 source) Vitamin B12 Start: 05-17-2024 take 1 tablet by mouth once daily cyanocobalamin 500 MCG tablet Take 1 tablet by mouth daily. 05/17/2024 Active Vitamin B12 500 mcg oral tablet (5 sources) Start: 08-09-2024 End: 11-07-2024 Vitamin B12 500 mcg oral tablet Dose : 500 mcg = 1 tab(s), Oral, qDay, # 90 tab(s), 0 Refill(s), Pharmacy: [facility] #[id number], 169.5, cm, 05/16/24 15:01:00 EST, Height, kg, 05/16/24 15:01:00 EST, Dosing Weight Start Date: 08/09/24 Stop Date: 11/07/24 Status: Ordered Quantity: 90.0 Unit: tab(s) Repeat number: 1 Start: 05-17-2024 End: 05-12-2025 Vitamin B12 500 mcg oral tab let Dose : 500 mcg = 1 tab(s), Oral, qDay, # 90 tab(s), 3 Refill(s), Pharmacy: [id number], 169.5, cm, 05/16/24 15:01:00 EST, Height, kg, 05/16/24 15:01:00 EST, Dosing Weight Start Date: 05/17/24 Stop Date: 05/12/25 Status: Ordered Quantity: 90.0 Unit: tab(s) Repeat number: 4 Start: 11-06-2023 End: 05-04-2024 Vitamin B12 500 mcg oral tab let Dose : 500 mcg = 1 tab(s), Oral, qDay, # 90 tab(s), 1 Refill(s), Pharmacy: [id number], 170, cm, 10/18/23 14:04:00 EDT, Height, kg, 10/18/23 14:04:00 EDT, Dosing Weight Start Date: 11/06/23 Stop Date: 05/04/24 Status: Ordered Vitamin D3 125 mcg (5000 int l units) oral tablet (1 source) Start: 05-17-2024 End: 08-15-2024 Vitamin D3 125 mcg (5000 int l units) oral tablet Dose : 125 mcg = 1 tab(s), Oral, qDayM, with food, # 90 tab(s), 0 Refill(s), Pharmacy: [id number], 169.5, cm, 05/16/24 15:01:00 EST, Height, kg, 05/16/24 15:01:00 EST, Dosing Weight Start Date: 05/17/24 Stop Date: 08/15/24 Status: Ordered Quantity: 90.0 Unit: tab(s) Repeat number: 1 Vitamin D3 50 mcg (2000 intl units) oral tablet (9 sources) Start: 12-28-2023 End: 04-06-2024 Vitamin D3 50 mcg (2000 intl units) oral tablet Dose : 2,000 unit(s) = 1 tab(s), Oral, qDay, with food, # 100 tab(s), 0 Refill(s), Pharmacy: [id number], 171.5, cm, 12/28/23 11:26:00 EDT, Height, kg, 12/28/23 11:26:00 EDT, Dosing Weight Start Date: 12/28/23 Stop Date: 04/06/24 Status: Ordered Start: 07-21-2023 End: 01-17-2024 Vitamin D3 50 mcg (2000 intl units) oral tablet Dose : 2,000 unit(s) = 1 tab(s), Oral, Daily, with food, # 90 tab(s), 1 Refill(s), Pharmacy: [id number], 171.6, cm, 07/21/23 8:37:00 EDT, Height, kg, 07/21/23 8:37:00 EDT, Dosing Weight Start Date: 07/21/23 Stop Date: 01/17/24 Status: Ordered Start: 01-23-2023 End: 07-22-2023 Vitamin D3 50 mcg (2000 intl units) oral tablet Dose : 2,000 unit(s) = 1 tab(s), Oral, Daily, with food, # 90 tab(s), 1 Refill(s), Pharmacy: [id number], 170.7, cm, 11/29/22 15:16:00 EDT, Height, kg, 12/01/22 9:31:00 EDT, Dosing Weight Start Date: 01/23/23 Stop Date: 07/22/23 Status: Ordered Start: 10-31-2022 End: 01-29-2023 Vitamin D3 50 mcg (2000 intl units) oral tablet Dose : 2,000 unit(s) = 1 tab(s), Oral, Daily, with food, # 90 tab(s), 0 Refill(s), Pharmacy: [id number], 170.7, cm, 10/11/22 15:18:00 EDT, Height Start Date: 10/31/22 Stop Date: 01/29/23 Status: Ordered Completed/Discontinued Medications Medication Drug Class(es) Dates Sig (Normalized) Sig (Original) acetaminophen 325 mg oral tablet (1 source) Start: 07-03-2018 End: 07-03-2018 acetaminophen (TYLENOL) tablet 975 mg albuterol (20 sources) beta2-Adrenergic Agonist Start: 07-21-2023 End: 01-17-2024 take 2 puff(s) by inhalation every four hours as needed for wheezing Ventolin HFA MDI (90 mcg/inh) inhalation aerosol 2 puff(s), Inhalation, q4h, PRN Shortness of breath or wheezing, use with spacer chamber. Okay to substitute alternative brand if needed for insurance., # 1 EA, 5 Refill(s), Pharmacy: [id number], 171.6, cm, 07/21/23 8:37:00 EDT, Height, kg, 07/21/23 8:37:00 EDT, Dosing Weight Start Date: 07/21/23 Stop Date: 01/17/24 Status: Ordered Quantity: 1.0 Unit: EA Repeat number: 6 Start: 07-21-2023 End: 01-17-2024 take 2 puff(s) by inhalation every four hours as needed for wheezing Ventolin HFA MDI (90 mcg/inh) inhalation aerosol 2 puff(s), Inhalation, q4h, PRN Shortness of breath or wheezing, use with spacer chamber. Okay to substitute alternative brand if needed for insurance., # 1 EA, 5 Refill(s), Pharmacy: [id number], 171.6, cm, 07/21/23 8:37:00 EDT, Height, kg, 07/21/23 8:37:00 EDT, Dosing Weight Start Date: 07/21/23 Stop Date: 01/17/24 Status: Ordered Start: 01-23-2023 End: 07-22-2023 take 2 puff(s) by inhalation every four hours as needed for wheezing Ventolin HFA MDI (90 mcg/inh) inhalation aerosol 2 puff(s), Inhalation, q4h, PRN Shortness of breath or wheezing, use with spacer chamber. Okay to substitute alternative brand if needed for insurance., # 1 EA, 5 Refill(s), Pharmacy: [id number], 170.7, cm, 11/29/22 15:16:00 EDT, Height, kg, 12/01/22 9:31:00 EDT, Dosing Weight Start Date: 01/23/23 Stop Date: 07/22/23 Status: Ordered Start: 08-02-2022 End: 01-29-2023 take 2 puff(s) by inhalation every four hours as needed for wheezing Ventolin HFA MDI (90 mcg/inh) inhalation aerosol 2 puff(s), Inhalation, q4h, PRN Shortness of breath or wheezing, use with spacer chamber. Okay to substitute alternative brand if needed for insurance., # 1 EA, 5 Refill(s), Pharmacy: [id number], 172, cm, 08/02/22 14:33:00 EDT, Height, kg, 08/02/22 14:33:00 EDT, Dosing Weight Start Date: 08/02/22 Stop Date: 01/29/23 Status: Ordered Start: 08-02-2022 End: 01-29-2023 take 2 puff(s) by inhalation every four hours as needed for wheezing Ventolin HFA MDI (90 mcg/inh) inhalation aerosol 2 puff(s), Inhalation, q4h, PRN Shortness of breath or wheezing, use with spacer chamber. Okay to substitute alternative brand if needed for insurance., # 1 EA, 5 Refill(s), Pharmacy: [facility], 172, cm, 08/02/22 14:33:00 EDT, Height,... Start Date: 08/02/22 Stop Date: 01/29/23 Status: Ordered Start: 02-16-2022 take 1 puff(s) by in halation every six hours Albuterol Sulfate Active 2 PUFF INHALATION EVERY 6 HOURS February 16, 2022 12:00am Start: 02-08-2022 End: 05-09-2022 Ventolin HFA MDI (90 mcg/inh ) inhalation aerosol 2 puff(s), Inhalation, q4h, PRN Shortness of breath or wheezing, use with spacer chamber. PHARMACY PLEASE DISPENSE SPACER. Okay to substitute alternative brand if needed for insurance., # 1 EA, 2 Refill(s), Pharmacy: [id number], 170, c... Start Date: 02/08/22 Stop Date: 05/09/22 Status: Ordered Start: 08-30-2019 albuterol HFA (PROVENTIL HFA, VENTOLIN HFA) 90 mcg/actuation inhaler Inhale 90 mcg as instructed as needed. 08/30/2019 Active Start: 08-30-2019 take 2 puff(s) by in halation every six hours as needed for wheezing Ventolin HFA MDI (90 mcg/inh) inhalation aerosol 2 puff(s), Inhalation, q6hr, PRN as needed for wheezing, 0 Refill(s) Start Date: 08/30/19 Status: Ordered take 2 puff(s) by in halation every four hours as needed ALBUTEROL SULFATE HFA INHALATION Inhale 2 Puffs as instructed every 4 hours as needed. Active take 2 puff(s) by in halation every four hours as needed ALBUTEROL SULFATE HFA INHALATION Inhale 2 Puffs as instructed every 4 hours as needed. 0 Active End: 07-24-2018 take 2 puff(s) by inhalation every six hours as needed for wheezing albuterol 90 mcg/actuation inhaler Inhale 2 puffs every 6 (six) hours as needed for wheezing. 0 07/24/2018 Discontinued albuterol 90 mcg /actuation inhaler Inhale 2 puffs every 6 (six) hours as needed for wheezing. Active Comment on above: Inhale 2 Puffs as in structed every 4 hours as needed. Inhale 90 mcg as ins tructed as needed. aspirin 81 mg delayed release oral tablet (20 sources) Platelet Aggregation Inhibitor, Nonsteroidal Anti-inflammatory Drug Start: 06-26-2023 End: 09-24-2023 aspirin 81 mg oral delayed release tablet Dose : 81 mg = 1 tab(s), Oral, qDay, do not crush or chew, # 90 tab(s), 0 Refill(s), Pharmacy: [id number], 171.7, cm, 05/25/23 16:13:00 EST, Height, kg, 05/25/23 16:13:00 EST, Dosing Weight Start Date: 06/26/23 Stop Date: 09/24/23 Status: Ordered Quantity: 90.0 Unit: tab(s) Repeat number: 1 Comment on above: Take 81 mg by mouth once daily. ceFAZolin (ANCEF) 1,000 mg in sodium chloride 0.9 % (NS) 50 mL IVPB (1 source) Start: 07-25-2018 End: 07-25-2018 ceFAZolin (ANCEF) 1,000 mg in sodium chloride 0.9 % (NS) 50 mL IVPB ceFAZolin (ANCEF) 1000 mg in sodium chloride (NS) 0.9% 50 mL MBP (1 source) Start: 07-24-2018 End: 07-24-2018 ceFAZolin (ANCEF) 1000 mg in sodium chloride (NS) 0.9% 50 mL MBP cetirizine hydrochloride 10 mg oral tablet (20 sources) Histamine-1 Receptor Antagonist Start: 08-30-2019 End: 02-26-2020 Zyrtec 10 mg oral tablet Dose : 10 mg = 1 tab(s), Oral, qDay, PRN as needed for allergy symptoms, # 90 tab(s), 1 Refill(s), Pharmacy: [id number], 170.2, cm, 08/30/19 8:08:00 EDT, Height, kg, 08/30/19 8:08:00 EDT, Dosing Weight Start Date: 08/30/19 Stop Date: 02/26/20 Status: Ordered Cetirizine 10 mg cap Take by mouth once daily. Active End: 07-24-2018 take 1 tablet by mouth once daily cetirizine (ZYRTEC) 10 MG tablet Take 10 mg by mouth daily. 0 07/24/2018 Discontinued Comment on above: Take by mouth once d aily. diclofenac sodium 0.01 mg/mg topical gel (20 sources) Nonsteroidal Anti-inflammatory Drug Start: 01-18-20 End: 05-19-19 23 apply 2 g topically once Diclofenac Sodium Discontinued 2 GM TOPICAL ONCE January 17, 2022 12:00am May 19, 2022 11:31am apply to single elbow, wrist or hand; for hand includes palm/fingers/back of hand Start: 12-28-2021 End: 01-27-2022 diclofenac 1% topical gel 2 = gram(s), Topical, QID, PRN Pain, apply 2 g to affected area up to 4 times daily. not to exceed 16 grams/day, # 100 gram(s), 0 Refill(s), Pharmacy: [id number], Gel, 170, cm, 12/28/21 15:25:00 EDT, Height, 80.7 Start Date: 12/28/21 Stop Date: 01/27/22 Status: Ordered ferrous sulfate 60 mg/ml oral solution (3 sources) End: 09-09-2021 take 300 mg by mouth once daily ferrous sulfate 300 (60 FE) MG/5ML Syrup Take 300 mg by mouth daily. 0 09/09/2021 Discontinued 250 ml glucose 50 mg/ml / sodium chloride 9 mg/ml injection (1 source) Start: 07-25-2018 End: 07-25-2018 dextrose 5 % and sodium chloride 0.9 % infusion LORazepam 1 mg oral tablet (20 sources) Benzodiazepine Start: 02-16-2022 End: 06-20-2023 take 1 mg by mouth once daily Lorazepam Discontinued 1 MG PO DAILY February 16, 2022 12:00am June 20, 2023 9:47am Start: 10-18-2019 End: 10-23-2019 Ativan 1 mg oral tablet Dose : 1 mg = 1 tab(s), Oral, BID, PRN Seizures, # 12 tab(s), 0 Refill(s), Seizure, 109.1 Start Date: 10/18/19 Stop Date: 10/23/19 Status: Ordered metoprolol tartrate 25 mg oral tablet (1 source) beta-Adrenergic Stanley Start: 09-09-2023 End: 09-09-2023 metoprolol tartrate 25 mg oral tablet Start: 09/09/23 5:00:00 AM EDT, Dose = 50 mg, = 2 tab(s), Oral, prep pharm, 1 dose(s), 09/09/23 5:00:00 EDT Notes: Take with food. Start Date: 09/09/23 Stop Date: 09/09/23 Status: Completed nitrofurantoin, macrocrystals 25 mg / nitrofurantoin, monohydrate 75 mg oral capsule (3 sources) Nitrofuran Antibacterial Start: 07-04-2018 End: 07-24-2018 take 1 capsule by mouth twice daily nitrofurantoin, macrocrystal-monohy drate, (MACROBID) 100 MG capsule Take 1 (one) capsule (100 mg total) by mouth 2 (two) times a day . 20 capsule 0 07/04/2018 07/24/2018 Discontinued phenazopyridine hydrochloride 200 mg oral tablet (16 sources) Start: 01-17-2022 End: 05-19-2022 take 200 mg by mouth three times daily Phenazopyridine Discontinued 200 MG PO THREE TIMES A DAY January 17, 2022 12:00am May 19, 2022 11:32am Start: 01-05-2022 take 1 tablet by leigh th three times daily phenazopyridine 200 MG tablet Take 1 tablet by mouth 3 times daily. 18 tablet 0 01/05/2022 Active microencapsulated potassium chloride 10 meq extended release oral tablet (4 sources) Start: 07-24-2018 End: 07-24-2018 potassium chloride SA (K-DUR,KLOR-CON) CR tablet 20 mEq End: 09-09-2021 potassium chloride 20 MEQ Pa ck Take 20 mEq by mouth as needed. 0 09/09/2021 Discontinued Prenat.Vits,Tanvi,Vao-Trsg-Avx ic (15 sources) Start: 01-17-2022 End: 04-12-2022 take 1 tablet by mouth once daily Prenat.Vits,Tanvi,Gjk-Sqyj-Uvzaa Discontinued 1 TABLET PO DAILY January 17, 2022 12:00am April 12, 2022 4:58pm Start: 01-17-2022 End: 04-12-2022 take 1 tablet by mouth once daily Prenat.Vits,Tanvi,Kch-Fved-Reqsz Discontin ued 1 TABLET PO DAILY January 16, 2022 11:00pm April 12, 2022 3:58pm Vit-Fe Fumarate-FA ( 19) 29-1 MG Chew Tab (2 sources) Start: 11-29-2021 End: 08-10-2022 Vit-Fe Fumarate-FA ( 19) 29-1 MG Chew Tab Chew 29 mg daily. 30 tablet 11/29/2021 08/10/2022 Discontinued Start: 11-29-2021 Vit-F e Fumarate-FA ( 19) 29-1 MG Chew Tab Chew 29 mg daily. 30 tablet 11 11/29/2021 Active promethazine hydrochloride 25 mg oral tablet (2 sources) Phenothiazine Start: 07-12-2018 End: 08-11-2018 take 1 tablet by mouth every six hours as needed promethazine (PHENERGAN) 25 MG tablet Take 1 (one) tablet (25 mg total) by mouth every 6 (six) hours as needed for nausea . 30 tablet 0 07/12/2018 07/24/2018 Discontinued sennosides, correction 8.6 mg oral tablet (3 sources) Start: 09-26-2018 End: 09-09-2021 take 1 tablet by mouth twice daily as needed for constipation senna 8.6 MG Tab Indications: Constipation, unspecified constipation type Take 1 tablet by mouth 2 times daily as needed for Constipation 1st Line. 30 tablet 1 09/26/2018 09/09/2021 Discontinued 1000 ml sodium chloride 9 mg/ml injection (3 sources) Start: 07-24-2018 End: 07-24-2018 sodium chloride 0.9% (NS) bolus 2,000 mL Start: 07-12-2018 End: 07-13-2018 sodium chloride 0.9% (NS) bryson sofya 1,000 mL Start: 07-03-2018 End: 07-04-2018 sodium chloride 0.9% (NS) bryson sofya 1,000 mL tiZANidine 4 mg oral capsule (4 sources) Central alpha-2 Adrenergic Agonist End: 07-24-2018 tiZANidine (ZANAFLEX) 4 MG capsule Take by mouth 3 (three) times a day. 0 07/24/2018 Discontinued traMADol hydrochloride 50 mg oral tablet (2 sources) Opioid Agonist Start: 12-01-2022 End: 12-04-2022 take 1 tablet by mouth every six hours as needed for pain traMADol 50 mg oral tablet Dose : 50 mg =, Oral, q6h, PRN Pain, Dx: K088, # 12 tab(s), 0 Refill(s), Dental caries, 69.5 Start Date: 12/01/22 Stop Date: 12/04/22 Status: Ordered ursodiol 500 mg oral tablet (10 sources) Bile Acid Start: 08-11-2022 End: 10-05-2022 take 500 mg by mouth twice daily Ursodiol Discontinued 500 MG PO TWICE A DAY 60 September 13, 2022 8:57am October 05, 2022 9:12am Problems Active Problems Problem Classification Problem Date Documented Da te Episodic/Chronic Abdominal pain (14 sources) Finding of sensation of abdomen; Translations: [Unspecified abdominal pain] 07-14-2022 Episodic Alcohol-related disorders (20 sources) H/O: alcoholism 08-30-2019 Chronic Allergic reactions (7 sources) Eczema 08-18-2023 Episodic Anxiety disorders (20 sources) Anxiety; Translations: [Anxiety disorder, unspecified] Onset: 5 08-30-2019 Chronic Asthma (20 sources) Mild intermittent asthma; Translations: [Mild intermittent asthma, uncomplicated] Onset: 9 11-06-2018 Chronic Biliary tract disease (7 sources) Gallstone; Translations: [Calculus of gallbladder without cholecystitis without obstruction] 10-05-2022 Episodic Chronic obstructive pulmonary disease and bronchiectasis (1 source) Chronic obstructive pulmonary disease, unspecified; Translations: [Chronic obstructive pulmonary disease, unspecified] Onset: 4 Chronic Contraceptive and procreative management (20 sources) Patient encounter status; Translations: [Encounter for contraceptive management, unspecified] Onset: 5 Episodic Developmental disorders (15 sources) Developmental academic disorder; Translations: [Developmental disorder of scholastic skills, unspecified] 05-19-2022 Chronic Disorders of teeth and jaw (12 sources) Dental caries; Translations: [Dental caries, unspecified] Onset: 3 Episodic Epilepsy; convulsions (20 sources) Idiopathic generalized epilepsy; Translations: [Generalized idiopathic epilepsy and epileptic syndromes, not intractable, without status epilepticus] Chronic Epilepsy; convulsions (14 sources) Seizure disorder 08-30-2019 Episodic Esophageal disorders (6 sources) Gastric reflux; Translations: [Gastro-esophageal reflux disease without esophagitis] 01-23-2023 Chronic Genitourinary symptoms and ill-defined conditions (20 sources) Nocturnal enuresis; Translations: [Nocturnal enuresis] Onset: 0 02-19-2020 Chronic Immunizations and screening for infectious disease (17 sources) Autoantibody titer positive; Translations: [Requires vaccination] 01-19-2022 Episodic Lymphadenitis (13 sources) Inguinal lymphadenopathy 10-11-2022 Episodic Malaise and fatigue (1 source) Chronic fatigue, unspecified; Translations: [Chronic fatigue, unspecified] Onset: 5 Chronic Malaise and fatigue (16 sources) Fatigue; Translations: [Other fatigue] 09-19-2022 Episodic Menstrual disorders (3 sources) Break-through bleeding; Translations: [Excessive and frequent menstruation with irregular cycle] Chronic Mood disorders (20 sources) Depressive disorder; Translations: [Bipolar II disorder] Onset: 9 08-30-2019 Chronic Mycoses (10 sources) Onychomycosis of toenails 02-24-2023 Episodic Nausea and vomiting (3 sources) Nausea with vomiting, unspecified; Translations: [Nausea and vomiting] Onset: 9 Episodic Neoplasms of unspecified nature or uncertain behavior (19 sources) Neoplasm and/or hamartoma 12-28-2021 Episodic Nutritional deficiencies (13 sources) Vitamin D deficiency; Translations: [Vitamin D deficiency, unspecified] 10-31-2022 Chronic Nutritional deficiencies (20 sources) Folic acid deficiency; Translations: [Cobalamin deficiency] 01-20-2020 Episodic Other and ill-defined heart disease (3 sources) Heart disease; Translations: [Heart disease, unspecified] 06-27-2023 Chronic Other circulatory disease (1 source) Celiac artery compression syndrome; 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 Other complications of (2 sources) Mild hyperemesis gravidarum; Translations: [Mild hyperemesis gravidarum] Onset: 9 Episodic Other connective tissue disease (1 source) Foot pain 08-28-2024 Episodic Other diseases of bladder and urethra (1 source) Overactive bladder; Translations: [Overactive bladder] 02-28-2023 Chronic Other diseases of veins and lymphatics (1 source) Peripheral venous insufficiency; Translations: [Venous insufficiency (chronic) (peripheral)] Episodic Other female genital disorders (2 sources) Abnormal uterine bleeding; Translations: [Abnormal uterine and vaginal bleeding, unspecified] Chronic Other gastrointestinal disorders (5 sources) Abdominal bloating; Translations: [Abdominal distension (gaseous)] 10-05-2022 Episodic Other gastrointestinal disorders (6 sources) Constipation; Translations: [Constipation, unspecified] 10-05-2022 Episodic Other gastrointestinal disorders (2 sources) Abdominal distension (gaseous); Translations: [Flatulence, eructation, and gas pain] 10-05-2022 Episodic Other gastrointestinal disorders (4 sources) Constipation, unspecified; Translations: [Constipation, unspecified] Onset: 10-05-2022 Episodic Other liver diseases (7 sources) Large liver; Translations: [Hepatomegaly, not elsewhere classified] 07-14-2022 Episodic Other liver diseases (2 sources) Hepatomegaly, not elsewhere classified; Translations: [Hepatomegaly] 07-14-2022 Episodic Other lower respiratory disease (10 sources) Dyspnea; Translations: [Dyspnea] 08-28-2021 Episodic Other lower respiratory disease (20 sources) Apnea 09-23-2019 Episodic Other lower respiratory disease (10 sources) Productive cough 02-24-2023 Episodic Other lower respiratory disease (8 sources) Air trapping 04-12-2023 Episodic Other nervous system disorders (13 sources) Carpal tunnel syndrome 10-11-2022 Chronic Other nervous system disorders (10 sources) Paresthesia of left upper limb; Translations: [Paresthesia of skin] 06-10-2022 Episodic Other nervous system disorders (13 sources) Numbness of hand 10-11-2022 Episodic Other nervous system disorders (7 sources) Numbness of foot 08-18-2023 Episodic Other non-traumatic joint disorders (15 sources) Anterior knee pain; Translations: [Pain in left knee] 01-17-2022 Episodic Other non-traumatic joint disorders (9 sources) Pain in left knee; Translations: [Pain in joint, lower leg] Episodic Other nutritional; endocrine; and metabolic disorders (10 sources) Obese class I; Translations: [Obesity, unspecified] Onset: 9 09-12-2018 Chronic Other nutritional; endocrine; and metabolic disorders (1 source) Morbid obesity; Translations: [Morbid (severe) obesity due to excess calories] Onset: 9 01-30-2019 Chronic Other nutritional; endocrine; and metabolic disorders (9 sources) Body mass index 40+ - severely obese; Translations: [Morbid (severe) obesity due to excess calories] Onset: 9 01-30-2019 Chronic Other nutritional; endocrine; and metabolic disorders (19 sources) History of iron deficiency 12-28-2021 Episodic Other nutritional; endocrine; and metabolic disorders (20 sources) Weight loss; Translations: [Abnormal weight loss] 12-28-2021 Episodic Other nutritional; endocrine; and metabolic disorders (16 sources) Abnormal weight loss; Translations: [Abnormal weight loss] Onset: 5 04-12-2022 Episodic Other nutritional; endocrine; and metabolic disorders (20 sources) Abnormal weight loss; Translations: [Loss of weight] Onset: 5 Episodic Other nutritional; endocrine; and metabolic disorders (14 sources) Unexplained weight loss 02-10-2022 Episodic Other screening for suspected conditions (not mental disorders or infectious disease) (19 sources) Cancer cervix screening status; Translations: [Encounter for screening for malignant neoplasm of cervix] Episodic Other upper respiratory disease (20 sources) Seasonal allergy 08-30-2019 Chronic Other upper respiratory disease (13 sources) Nasal congestion 08-02-2022 Episodic Rebekah-; endo-; and myocarditis; cardiomyopathy (except that caused by tuberculosis or sexually transmitted disease) (20 sources) Heart valve disorder 08-30-2019 Chronic Pleurisy; pneumothorax; pulmonary collapse (1 source) Pleurisy; Translations: [Pleurisy] Onset: 3 Episodic Prolapse of female genital organs (3 sources) Instability of pelvic floor; Translations: [Other female genital prolapse] Onset: 5 10-09-2024 Chronic Residual codes; unclassified (20 sources) Memory impairment 01-17-2020 Episodic Residual codes; unclassified (6 sources) Tobacco user 08-30-2019 Episodic Residual codes; unclassified (1 source) Oral cavity finding; Translations: [Other specified personal risk factors, not elsewhere classified] 07-04-2024 Episodic Residual codes; unclassified (2 sources) Other specified personal risk factors, not elsewhere classified; Translations: [Other specified personal risk factors, not elsewhere classified] Onset: 5 Episodic Schizophrenia and other psychotic disorders (20 sources) Schizophrenia; Translations: [Schizophrenia, unspecified] Onset: 9 09-10-2018 Chronic Screening and history of mental health and substance abuse codes (14 sources) Tobacco use and exposure - finding 02-08-2022 Chronic Sexually transmitted infections (not HIV or hepatitis) (1 source) Human papillomavirus deoxyribonucleic acid test positive, high risk on cervical specimen; Translations: [Cervical high risk human papillomavirus (HPV) DNA test positive] Episodic Spondylosis; intervertebral disc disorders; other back problems (1 source) Cervical radiculopathy Chronic Substance-related disorders (20 sources) H/O: drug dependency; Translations: [Nicotine dependence] Onset: 5 08-30-2019 Chronic Comment on above: 1/2 ppd since age 17 Thyroid disorders (20 sources) Thyroid nodule; Translations: [Lois thyroiditis] Onset: 4 01-14-2022 Chronic Unclassified (19 sources) Pain of knee region 12-28-2021 Unclassified (1 source) Patient encounter status 04-12-2023 Unclassified (7 sources) Glomerular filtration rate decreased 07-21-2023 Urinary tract infections (3 sources) Acute urinary tract infection; Translations: [Urinary tract infection, site not specified] Onset: Episodic Varicose veins of lower extremity (3 sources) Varicose veins of lower extremity; Translations: [Asymptomatic varicose veins of right lower extremity] Episodic Past or Other Problems Problem Classification Problem Date Documented Date Episodic/Chronic Administrative/social admission (15 sources) Problem situation; Translations: [Problem related to social environment, unspecified] Onset: 06-24-2019 06-24-2019 Episodic Genitourinary symptoms and ill-defined conditions (14 sources) Nocturia; Translations: [Nocturia] Onset: 02-19-2020 02-19-2020 Episodic Mood disorders (9 sources) Mood disorders Onset: 09-10-2018 Resolved: 07-04-2024 09-10-2018 Nonspecific chest pain (15 sources) Chest discomfort; Translations: [Chest Discomfort] Onset: 07-27-2023 08-28-2021 Episodic Other complications of (12 sources) Hyperemesis gravidarum; Translations: [Mild hyperemesis gravidarum] Onset: 09-10-2018 09-10-2018 Episodic Other complications of (10 sources) Epilepsy in mother complicating ; Translations: [Diseases of the nervous system complicating , second trimester] Onset: 09-10-2018 09-10-2018 Episodic Other complications of (10 sources) High risk ; Translations: [Supervision of high risk , unspecified, unspecified trimester] Onset: 09-10-2018 01-28-2019 Episodic Other connective tissue disease (10 sources) Myalgia of pelvic floor; Translations: [Myalgia, other site] Onset: 02-19-2020 02-19-2020 Episodic Other lower respiratory disease (5 sources) Shortness of breath; Translations: [Shortness of breath] Onset: 07-20-2023 06-27-2023 Episodic Other lower respiratory disease (1 source) Other specified respiratory disorders; Translations: [Other specified respiratory disorders] Onset: 10-06-2023 Episodic Other nutritional; endocrine; and metabolic disorders (3 sources) Unintentional weight loss; Translations: [Abnormal weight loss] Onset: 07-04-2024 07-04-2024 Episodic Other and delivery including normal (13 sources) Encounter for supervision of normal , unspecified, first trimester; Translations: [First trimester ] Onset: 07-12-2018 Resolved: 02-06-2019 02-06-2019 Episodic Spondylosis; intervertebral disc disorders; other back problems (2 sources) Radiculopathy, cervical region; Translations: [Radiculopathy, cervical region] Onset: 02-19-2018 Episodic Unclassified (1 source) Onset: 02-22-2023 02-22-2023 Unclassified (1 source) Oral cavity finding 07-05-2024 NEGATED: Highlighted row has been ruled out!Unclassified (3 sources) No known active problems Results Test Name Value Interpretation Reference Range Facility FOL 08-28-2024 Folate 8.12 ng/mL Normal 5.38-24.00 [facility] Comment on above: Performed By: #### V IDH #### [address] [address] #### FOL #### [place] [address] LABORATORYOrdered By: SYSTEM SYSTEM on 08-28-2024 25-hydroxyvitamin D3 [Mass/Vol] 16.0 ng/mL Invalid Interpretation Code ADM Comment on above: Interpretive Data: I nterpretive Values Based on Total 25(OH) Vitamin D: Deficient <20 ng/mL Insufficient 20 - <30 ng/mL Sufficient 30-100 ng/mL Folate [Mass/Vol] 8.12 ng/mL Normal 5.38 - 24.00 ng/mL ADM SS VIDHon 08-28-2024 Vit. D 25-Hydroxy 16.0 ng/mL Normal [facility] Comment on above: Result Comment: Inte rpretive Values Based on Total 25(OH) Vitamin D: Deficient <20 ng/mL Insufficient 20 - <30 ng/mL Sufficient 30-100 ng/mL Performed By: #### V IDH #### [address] [address] #### FOL #### [place] [id number] [place] [id number] [facility] Nurse Visit (OBGYWM) ----- ISIDRA ZALDIVAR ([id number]) 1985 F Date Time Provider Department 08/21/24 3:00 PM NURSE WATCH REPAIRER [facility] O[facility] During your visit today, we recorded the following information about you: Weight 80.3 kg Chente Antunez RN 08/21/2024 2:53 PM Signed Patient identified by name and date of . Isidra Zaldivar is here for a Depo Provera injection. Patient brought medication. Date last injected: 06/12/24 Depo-Provera, 150 mg, administered IM left upper quadrant gluteus, Lot # [id number], expiration date 10/05/2025. Depo-Provera was given without incident. Date of last menses: Patient's last menstrual period was 06/19/2022 (approximate). Irregular bleeding - No Menses ceased - Yes Patient instructed to return to clinic on 10 weeks. [email or web address] Provider Dr. Lancaster was present in office at time of injection. Chente Antunez RN Allergies As of Date: 08/21/2024 Noted Allergy Reaction CETIRIZINE 02/09/2024 14 - Other: See Comments PHENERGAN (PROMETHAZINE) 06/14/2019 7 - Swelling SEASONAL ALLERGIES 04/17/2019 14 - Other: See Comments Comments: Stuffy head, watery eyes SUBOXONE (BUPRENORPHINE-NALOXONE) 02/09/2024 4 - Hives 11 - Vomiting Date Reviewed: 08/21/2024 Reviewed by: Chente Antunez RN - Fully Assessed Reason for Visit: Depo Provera Injection [1655] Primary Visit Diagnosis:Encounter for management and injection of depo-Provera [Z30.42] Prescriptions as of 08/21/2024 - medroxyPROGESTERone (DEPO-PROVERA) 150 mg/mL injection Inject 1 mL intramuscularly every 10 weeks. - aspirin, enteric coated (ASPIRIN, ENTERIC COATED) 81 mg EC tablet Take 81 mg by mouth once daily. - busPIRone (BUSPAR) 5 mg tablet Take 5 mg by mouth as needed. - albuterol HFA (PROVENTIL HFA, VENTOLIN HFA) 90 mcg/actuation inhaler Inhale 90 mcg as instructed as needed. - levothyroxine (SYNTHROID) 75 mcg tablet Take 75 mcg by mouth daily before breakfast. - ALBUTEROL SULFATE HFA INHALATION Inhale 2 Puffs as instructed every 4 hours as needed. - fluticasone (FLONASE) 50 mcg/actuation nasal spray Use 2 Sprays in each nostril once daily. - docusate sodium (COLACE) 100 mg capsule Take 1 capsule by mouth twice daily. - lamoTRIgine (LAMICTAL) 100 mg tablet Take 150 mg by mouth twice daily. - prazosin (MINIPRESS) 1 mg cap Take 1 mg by mouth three times a day. Take one capsule by mouth in the morning and two capsules at bedtime - desmopressin acetate (DDAVP) 0.2 mg tablet Take 0.2 mg by mouth once daily. - Cetirizine 10 mg cap Take by mouth once daily. - docusate sodium (COLACE) 100 mg capsule Take 100 mg by mouth twice daily. - paliperidone ER (INVEGA) 6 mg 24 hr tablet Take 9 mg by mouth once daily. Facility-Administered Medications as of 08/21/2024 - medroxyPROGESTERone 150 mg injection (DEPO-PROVERA) - medroxyPROGESTERone 150 mg injection (DEPO-PROVERA) Problem List As Of Date: 08/21/2024 (None) Disposition: Return in 10 weeks (on 10/30/2024). Follow-up and Disposition History for Encounter Date Provider Department Center 08/21/2024 [id number] WATCH REPAIRER [facility] *OBGYWMonica Amaro Encounter Status:Closed by CHENTE ANTUNEZ on 08/21/[address] [facility] 06-12-2024 CNNURSE Nurse Visit (OBGYWM) ----- ISIDRA ZALDIVAR ([id number]) 1985 F Date Time Provider Department 06/12/24 3:00 PM NURSE WATCH REPAIRER [facility] During your visit today, we recorded the following information about you: Blood pressure Weight 116/62 77.1 kg Migdalia Cedillo, [place] 06/12/2024 2:58 PM Signed Patient identified by name and date of . Isidra Zaldivar is here for a Depo Provera injection. Patient brought medication. Date last injected: 04/03/24 Depo-Provera, 150 mg, administered IM right upper quadrant gluteus, Lot # [id number], expiration date 09/2025. Depo-Provera was given without incident. Date of last menses: Patient's last menstrual period was 06/19/2022 (approximate). Irregular bleeding - No Menses ceased - Yes Medication verified by dispensing pharmacist Patient instructed to return to clinic on 10 weeks. [email or web address] Provider Migdalia Elliott MD was present in office at time of injection. Migdalia Cedillo RN Allergies As of Date: 06/12/2024 Noted Allergy Reaction CETIRIZINE 02/09/2024 14 - Other: See Comments PHENERGAN (PROMETHAZINE) 06/14/2019 7 - Swelling SEASONAL ALLERGIES 04/17/2019 14 - Other: See Comments Comments: Stuffy head, watery eyes SUBOXONE (BUPRENORPHINE-NALOXONE) 02/09/2024 4 - Hives 11 - Vomiting Date Reviewed: 06/12/2024 Reviewed by: Migdalia Cedillo, [place] - Fully Assessed Reason for Visit: Depo Provera Injection [1655] Primary Visit Diagnosis:Depo-Provera contraceptive status [Z30.42] Prescriptions as of 06/12/2024 - medroxyPROGESTERone (DEPO-PROVERA) 150 mg/mL injection Inject 1 mL intramuscularly every 10 weeks. - aspirin, enteric coated (ASPIRIN, ENTERIC COATED) 81 mg EC tablet Take 81 mg by mouth once daily. - busPIRone (BUSPAR) 5 mg tablet Take 5 mg by mouth as needed. - albuterol HFA (PROVENTIL HFA, VENTOLIN HFA) 90 mcg/actuation inhaler Inhale 90 mcg as instructed as needed. - levothyroxine (SYNTHROID) 75 mcg tablet Take 75 mcg by mouth daily before breakfast. - ALBUTEROL SULFATE HFA INHALATION Inhale 2 Puffs as instructed every 4 hours as needed. - fluticasone (FLONASE) 50 mcg/actuation nasal spray Use 2 Sprays in each nostril once daily. - docusate sodium (COLACE) 100 mg capsule Take 1 capsule by mouth twice daily. - lamoTRIgine (LAMICTAL) 100 mg tablet Take 150 mg by mouth twice daily. - prazosin (MINIPRESS) 1 mg cap Take 1 mg by mouth three times a day. Take one capsule by mouth in the morning and two capsules at bedtime - desmopressin acetate (DDAVP) 0.2 mg tablet Take 0.2 mg by mouth once daily. - Cetirizine 10 mg cap Take by mouth once daily. - docusate sodium (COLACE) 100 mg capsule Take 100 mg by mouth twice daily. - paliperidone ER (INVEGA) 6 mg 24 hr tablet Take 9 mg by mouth once daily. Facility-Administered Medications as of 06/12/2024 - medroxyPROGESTERone 150 mg injection (DEPO-PROVERA) - medroxyPROGESTERone 150 mg injection (DEPO-PROVERA) Problem List As Of Date: 06/12/2024 (None) Disposition: Return in 10 weeks (on 08/21/2024). Follow-up and Disposition History for Encounter Date Provider Department Center 06/12/2024 [id number] WATCH REPAIRER [facility] *OBGYWMonica Amaro Encounter Status:Closed by MIGDALIA CEDILLO on 06/12/[address] [facility] Office Visit Reporton 2024 Office Visit Report [facility] [address] [place] [address] OFFICE VISIT Date of Service: 05/20/24 MR#: [id number] Acct: [id number] Patient: ISIDRA ZALDIVAR Rep #: [id number] : 1985 Provider: Dr. Peterson hicks MD Age/Sex: 38/F Location: [facility] Status: Signed Intake Vital Signs 03/18/24 14:16 05/20/24 13:28 Height 5 ft 7 in 5 ft 7 in Weight: 173 lb 173 lb BMI 27.1 27.1 BP 110/70 104/70 Blood Pressure Location Lt brachial Rt brachial Position Sitting Sitting Respiration 17 17 Pulse 78 82 Pulse Source Monitor Monitor Temp 98.4 F 98.4 F Temp Source Temporal Temporal Pulse Oximetry (%) 99 97 Oxygen Delivery Method room air room air Intake Visit Reasons: B12 inject Chief Complaint: Allergies Environmental Allergies: Uncoded Allergy (Verified 11/30/23 09:13) sneezing promethazine (From Phenergan) Allergy (Verified 11/30/23 09:13) Vomiting cetirizine (From Zyrtec) Adverse Reaction (Unknown, Verified 11/30/23 09:13) unknown fluticasone (From Flovent HFA) Adverse Reaction (Verified 11/30/23 09:13) palpitations guaifenesin Adverse Reaction (Verified 11/30/23 09:13) Vomiting Office Meds cyanocobalamin (vitamin B-12) 1,000 mcg/mL injection solution Performing Provider: Peterson Patterson MD Performing Location: [facility] Administered by: Monica Leos on 05/20/24 13:23 Dose Route Admin Location Dispensed Lot Number Expiration Date NDC Man ufacturer 1,000 mcg IM right deltoid 1 mL [id number] 08/05/26 94204-738-07 KIT GREER Comments: The patient presents for B12 injection for treatment of fatigue. She has fatigue. Her last B12 injection was of benefit for fatigue. The patient is awake and alert. B12 1000mcg IM was administered today. There were no complications. Assessment and Plan Assessment and Plan (1) Fatigue: Status: Chronic Qualifiers: Fatigue type: chronic, unspecified Qualified Code(s): R53.82 - Chronic fatigue, unspecified Orders: Orders Vitamin B12 Today R53.82 - Chronic fatigue, unspecified 05/20/24 1801 Date Peterson Andrade Signature: Date (if applicable) CC: Normal [facility] .Auto Diffon 05-17-2024 Basophil, Absolute 0.0 10 3/mcL Normal 0.0-0.2 [facility] Comment on above: Performed By: #### B 12 #### [place] [address] #### CBC, ADIFF, ANEU, BMP, VIDH, GFR #### [address] [address] Lymphocyte, Absolute 2.1 10 3/mcL Normal 0.9-4.3 [facility] Comment on above: Performed By: #### B 12 #### [place] [address] #### CBC, ADIFF, ANEU, BMP, VIDH, GFR #### [address] [address] Monocyte, Absolute 0.4 10 3/mcL Normal 0.1-1.4 [facility] Comment on above: Performed By: #### B 12 #### [place] [address] #### CBC, ADIFF, ANEU, BMP, VIDH, GFR #### [address] [address] .Auto DiffOrdered By: SYSTEM SYSTEM on 05-17-2024 Basophils/100 WBC (Bld) 0.4 % Normal 0.0-2.5 A O Workflow SS Comment on above: Performed By: #### B 12 #### [place] [address] #### CBC, ADIFF, ANEU, BMP, VIDH, GFR #### [address] [address] Eosinophil, Absolute 0.1 103/mcL Normal 0.0-0.7 AO Workflow SS Comment on above: Performed By: #### B 12 #### [place] [address] #### CBC, ADIFF, ANEU, BMP, VIDH, GFR #### [address] [address] Eosinophils/100 WBC (Bld) 2.3 % Normal 0.0-7.0 AO Workflow SS Comment on above: Performed By: #### B 12 #### [place] [address] #### CBC, ADIFF, ANEU, BMP, VIDH, GFR #### [address] [address] Lymphocytes/100 WBC (Bld) 33.4 % Normal 20.0-40.0 AO Workflow SS Comment on above: Performed By: #### B 12 #### [place] [address] #### CBC, ADIFF, ANEU, BMP, VIDH, GFR #### [address] [address] Monocytes/100 WBC (Bld) 7.0 % Normal 2.0-13.0 A O Workflow SS Comment on above: Performed By: #### B 12 #### [place] [address] #### CBC, ADIFF, ANEU, BMP, VIDH, GFR #### [address] [address] Neutrophils/100 WBC (Bld) 56.9 % Normal 50.0-75.0 AO Workflow SS Comment on above: Performed By: #### B 12 #### [place] [address] #### CBC, ADIFF, ANEU, BMP, VIDH, GFR #### [address] [address] .GFRon 05-17-2024 GFR Non- 99 ml/min/1.73sqm [facility] Comment on above: Result Comment: GFR Population mean for , Non- Americans Ages 20-29 = 116 mL/min/1.73 sq.m. Ages 30-39 = 107 mL/min/1.73 sq.m. Ages 40-49 = 99 mL/min/1.73 sq.m. Ages 50-59 = 93 mL/min/1.73 sq.m. Ages 60-69 = 85 mL/min/1.73 sq.m. Ages 70+ = 75 mL/min/1.73 sq.m. Chronic Kidney Disease: Less than 60 mL/min/1.73 square meters End Stage Renal Disease: Less than 15 mL/min/1.73 square meters Performed By: #### B 12 #### [address] [address] #### CBC, ADIFF, ANEU, BMP, VIDH, GFR #### [place] [address] [place], [place] [address] GFR 120 ml/min/1.73sqm [facility] Comment on above: Result Comment: GFR Population mean for , Non- Americans Ages 20-29 = 116 mL/min/1.73 sq.m. Ages 30-39 = 107 mL/min/1.73 sq.m. Ages 40-49 = 99 mL/min/1.73 sq.m. Ages 50-59 = 93 mL/min/1.73 sq.m. Ages 60-69 = 85 mL/min/1.73 sq.m. Ages 70+ = 75 mL/min/1.73 sq.m. Chronic Kidney Disease: Less than 60 mL/min/1.73 square meters End Stage Renal Disease: Less than 15 mL/min/1.73 square meters Performed By: #### B 12 #### [address] [address] #### CBC, ADIFF, ANEU, BMP, VIDH, GFR #### [address] [address] .NEUABSon 05-17-2024 Neutrophil, Absolute 3.5 10 3/mcL Normal 2.3-8.1 [facility] Comment on above: Performed By: #### B 12 #### [place] [address] #### CBC, ADIFF, ANEU, BMP, VIDH, GFR #### [place] [address] Z75Rlonyat By: SYSTEM SYSTEM on 05-17-2024 Cobalamin (Vitamin B12) [Mass/Vol] 490 pg/mL Normal 211-911 AH ADM SS Comment on above: Performed By: #### B 12 #### [place] [address] #### CBC, ADIFF, ANEU, BMP, VIDH, GFR #### [address] [address] BMPon 05-17-2024 BUN/Creatinine Ratio 12 ratio Normal 7-27 [facility] Comment on above: Performed By: #### B 12 #### [place] [address] #### CBC, ADIFF, ANEU, BMP, VIDH, GFR #### [address] [address] BMPOrdered By: SYSTEM SYSTEM on 05-17-2024 Calcium [Mass/Vol] 9.4 mg/dL Normal 8.4-10.2 AO ADM SS Comment on above: Performed By: #### B 12 #### [place] [address] #### CBC, ADIFF, ANEU, BMP, VIDH, GFR #### [place] [address] Chloride [Moles/Vol] 105 mmol/L Normal 98-107 AO A DM SS Comment on above: Performed By: #### B 12 #### [place] [address] #### CBC, ADIFF, ANEU, BMP, VIDH, GFR #### [address] [address] CO2 [Moles/Vol] 28 mmol/L Normal 22-29 AO ADM SS Comment on above: Performed By: #### B 12 #### [place] [address] #### CBC, ADIFF, ANEU, BMP, VIDH, GFR #### [address] [address] Creatinine [Mass/Vol] 0.67 mg/dL Normal 0.55-1.02 AO ADM SS Comment on above: Interpretive Data: T esting performed on Siemens Dimension EXL analyzer using a modified kinetic Simeon technique. Result Comment: Test ing performed on Siemens Dimension EXL analyzer using a modified kinetic Simeon technique. Performed By: #### B 12 #### [place] [address] #### CBC, ADIFF, ANEU, BMP, VIDH, GFR #### [address] [address] Electrolyte Balance 8.0 mEq/L Normal 4.0-15.0 AO AD M SS Comment on above: Performed By: #### B 12 #### [place] [address] #### CBC, ADIFF, ANEU, BMP, VIDH, GFR #### [address] [address] Glucose [Mass/Vol] 81 mg/dL Normal 70-105 AO ADM SS Comment on above: Performed By: #### B 12 #### [place] [address] #### CBC, ADIFF, ANEU, BMP, VIDH, GFR #### [address] [address] Potassium [Moles/Vol] 4.6 mmol/L Normal 3.5-5.1 AO ADM SS Comment on above: Performed By: #### B 12 #### [place] [address] #### CBC, ADIFF, ANEU, BMP, VIDH, GFR #### [address] [address] Sodium [Moles/Vol] 141 mmol/L Normal 136-145 AO ADM SS Comment on above: Performed By: #### B 12 #### [place] [address] #### CBC, ADIFF, ANEU, BMP, VIDH, GFR #### [place] [id number] Urea nitrogen [Mass/Vol] 8 mg/dL Normal 7-18 AO ADM SS Comment on above: Performed By: #### B 12 #### [place] [address] #### CBC, ADIFF, ANEU, BMP, VIDH, GFR #### [place] [id number] CBCOrdered By: SYSTEM SYSTEM on 05-17-2024 Erythrocyte distribution width (RBC) [Ratio] 13.3 % Normal 11.5-15.5 AO Workflow SS Comment on above: Performed By: #### B 12 #### [place] [address] #### CBC, ADIFF, ANEU, BMP, VIDH, GFR #### [address] [address] Hematocrit (Bld) [Volume fraction] 41.7 % Normal 34.0-46.0 AO Workflow SS Comment on above: Performed By: #### B 12 #### [place] [address] #### CBC, ADIFF, ANEU, BMP, VIDH, GFR #### [address] [address] MCH (RBC) [Entitic mass] 30.1 pg Normal 27.0-33.0 AO Workflow SS Comment on above: Performed By: #### B 12 #### [place] [address] #### CBC, ADIFF, ANEU, BMP, VIDH, GFR #### [place] [id number] MCHC 33.1 G/dL Normal 32.0-36.0 AO Workflow SS Comment on above: Performed By: #### B 12 #### [place] [address] #### CBC, ADIFF, ANEU, BMP, VIDH, GFR #### [address] [address] MCV (RBC) [Entitic vol] 90.9 fL Normal 80.0-99.0 A O Workflow SS Comment on above: Performed By: #### B 12 #### [place] [address] #### CBC, ADIFF, ANEU, BMP, VIDH, GFR #### [address] [address] Platelet mean volume (Bld) [Entitic vol] 11.0 fL High 6.6-10.5 AO Workflow SS Comment on above: Performed By: #### B 12 #### [place] [address] #### CBC, ADIFF, ANEU, BMP, VIDH, GFR #### [address] [address] CBCon 05-17-2024 Hgb 13.8 G/dL Normal 12.0-16.0 [facility] Comment on above: Performed By: #### B 12 #### [place] [address] #### CBC, ADIFF, ANEU, BMP, VIDH, GFR #### [address] [address] Platelet 156 10 3/mcL Normal 150-450 [facility] Comment on above: Performed By: #### B 12 #### [place] [address] #### CBC, ADIFF, ANEU, BMP, VIDH, GFR #### [address] [address] RBC 4.59 10 6/mcL Normal 4.10-5.30 [facility] Comment on above: Performed By: #### B 12 #### [address] [address] #### CBC, ADIFF, ANEU, BMP, VIDH, GFR #### [place] [address] [place], [place] [address] WBC 6.2 10 3/mcL Normal 4.5-10.8 [facility] Comment on above: Performed By: #### B 12 #### [address] [address] #### CBC, ADIFF, ANEU, BMP, VIDH, GFR #### [place] [address] [place], [place] [address] LABORATORYOrdered By: SYSTEM SYSTEM on 05-17-2024 25-hydroxyvitamin D3 [Mass/Vol] 13.9 ng/mL Invalid Interpretation Code AO ADM SS Comment on above: Interpretive Data: I nterpretive Values Based on Total 25(OH) Vitamin D: Deficient <20 ng/mL Insufficient 20 - <30 ng/mL Sufficient 30-100 ng/mL Basophils (Bld) [#/Vol] 0.0 103/mcL Normal 0.0 - 0.2 10^3/mcL AO Workflow SS GFR/1.73 sq M.predicted among blacks MDRD (S/P/Bld) [Vol rate/Area] 120 ml/min/1.73sqm Invalid Interpretation Code AO Chemistry S Comment on above: Interpretive Data: GFR Population mean for , Non- Americans Ages 20-29 = 116 mL/min/1.73 sq.m. Ages 30-39 = 107 mL/min/1.73 sq.m. Ages 40-49 = 99 mL/min/1.73 sq.m. Ages 50-59 = 93 mL/min/1.73 sq.m. Ages 60-69 = 85 mL/min/1.73 sq.m. Ages 70+ = 75 mL/min/1.73 sq.m. Chronic Kidney Disease: Less than 60 mL/min/1.73 square meters End Stage Renal Disease: Less than 15 mL/min/1.73 square meters GFR/1.73 sq M.predicted among non-blacks MDRD (S/P/Bld) [Vol rate/Area] 99 ml/min/1.73sqm Invalid Interpretation Code AO Chemistry S Comment on above: Interpretive Data: GFR Population mean for , Non- Americans Ages 20-29 = 116 mL/min/1.73 sq.m. Ages 30-39 = 107 mL/min/1.73 sq.m. Ages 40-49 = 99 mL/min/1.73 sq.m. Ages 50-59 = 93 mL/min/1.73 sq.m. Ages 60-69 = 85 mL/min/1.73 sq.m. Ages 70+ = 75 mL/min/1.73 sq.m. Chronic Kidney Disease: Less than 60 mL/min/1.73 square meters End Stage Renal Disease: Less than 15 mL/min/1.73 square meters Hemoglobin (Bld) [Mass/Vol] 13.8 G/dL Normal 12.0 - 16.0 G/dL AO Workflow SS Lymphocytes (Bld) [#/Vol] 2.1 103/mcL Normal 0.9 - 4.3 10^3/mcL AO Workflow SS Monocytes (Bld) [#/Vol] 0.4 103/mcL Normal 0.1 - 1.4 10^3/mcL AO Workflow SS Neutrophils (Bld) [#/Vol] 3.5 103/mcL Normal 2.3 - 8.1 10^3/mcL AO Workflow SS Platelets (Bld) [#/Vol] 156 103/mcL Normal 150 - 450 10^3/mcL AO Workflow SS RBC (Bld) [#/Vol] 4.59 106/mcL Normal 4.10 - 5.30 10^6/mcL AO Workflow SS Urea nitrogen/Creatinine [Mass ratio] 12 ratio Normal 7 - 27 ratio AO ADM SS WBC (Bld) [#/Vol] 6.2 103/mcL Normal 4.5 - 10.8 10^3/mcL AO Workflow SS VIDHon 05-17-2024 Vit. D 25-Hydroxy 13.9 ng/mL Normal [facility] Comment on above: Result Comment: Inte rpretive Values Based on Total 25(OH) Vitamin D: Deficient <20 ng/mL Insufficient 20 - <30 ng/mL Sufficient 30-100 ng/mL Performed By: #### B 12 #### [place] [address] #### CBC, ADIFF, ANEU, BMP, VIDH, GFR #### [place] [address] [place], [place] [address] Office Visit Reporton 2023 Office Visit Report [facility] [place] [address] OFFICE VISIT Date of Service: 04/18/24 MR#: [id number] Acct: [id number] Patient: ISIDRA ZALDIVAR Rep #: [id number] : 1985 Provider: Dr. Peterson hicks MD Age/Sex: 38/F [place] [facility] [place]: Signed Intake Vital Signs 02/15/24 10:59 04/18/24 14:01 Height 5 ft 7 in 5 ft 7 in Weight: 169 lb 169 lb 13 oz BMI 26.4 26.6 BP 106/64 104/70 Blood Pressure Location Lt brachial Lt brachial Position Sitting Sitting Respiration 17 17 Pulse 116 H 67 Pulse Source Monitor Monitor Temp 98.0 F 98.2 F Temp Source Temporal Temporal Pulse Oximetry (%) 98 98 Oxygen Delivery Method room air room air Intake Visit Reasons: B12 inject Chief Complaint: Allergies Environmental Allergies: Uncoded Allergy (Verified 11/30/23 09:13) sneezing promethazine (From Phenergan) Allergy (Verified 11/30/23 09:13) Vomiting cetirizine (From Zyrtec) Adverse Reaction (Unknown, Verified 11/30/23 09:13) unknown fluticasone (From Flovent HFA) Adverse Reaction (Verified 11/30/23 09:13) palpitations guaifenesin Adverse Reaction (Verified 11/30/23 09:13) Vomiting Office Meds cyanocobalamin (vitamin B-12) 1,000 mcg/mL injection solution Performing Provider: Peterson Patterson MD Performing Location: [facility] Administered by: Monica Leos on 04/18/24 14:03 Dose Route Admin Location Dispensed Lot Number Expiration Date NDC Man ufacturer 1,000 mcg IM left deltoid 1 mL [id number] 06/07/26 95468-383-26 KIT GREER Comments: The patient presents for B12 injection for treatment of fatigue. She has fatigue. Her last B12 injection was of benefit for fatigue. The patient is awake and alert. B12 1000mcg IM was administered today. There were no complications. Assessment and Plan Assessment and Plan (1) Fatigue: Status: Chronic Qualifiers: Fatigue type: chronic, unspecified Qualified Code(s): R53.82 - Chronic fatigue, unspecified Orders: Orders Vitamin B12 Today R53.82 - Chronic fatigue, unspecified 04/18/24 1604 Date Peterson Andrade Signature: Date (if applicable) CC: Normal [facility] CNNURSEon 04-03-2024 CNNURSE Nurse Visit (OBGYWM) ----- ISIDRA ZALDIVAR ([id number]) 1985 F Date Time Provider Department 04/03/24 2:00 PM NURSE WATCH REPAIRER [facility] OBGYWM During your visit today, we recorded the following information about you: Blood pressure Weight 118/74 78 kg Migdalia Cedillo, RN 04/03/2024 2:17 PM Signed Patient identified by name and date of . Isidra Carina is here for a Depo Provera injection. Patient brought medication. Date last injected: 01/10/24 Depo-Provera, 150 mg, administered IM left upper quadrant gluteus, Lot # [id number], expiration date 09/2025. Depo-Provera was given without incident. Date of last menses: Patient's last menstrual period was 06/19/2022 (approximate). Irregular bleeding - No Medication verified by dispensing pharmacist Patient instructed to return to clinic on 10 weeks. [email or web address] Provider Maria C Espino CNM was present in office at time of injection. Migdalia Cedillo RN Allergies As of Date: 04/03/2024 Noted Allergy Reaction CETIRIZINE 02/09/2024 14 - Other: See Comments PHENERGAN (PROMETHAZINE) 06/14/2019 7 - Swelling SEASONAL ALLERGIES 04/17/2019 14 - Other: See Comments Comments: Stuffy head, watery eyes SUBOXONE (BUPRENORPHINE-NALOXONE) 02/09/2024 4 - Hives 11 - Vomiting Date Reviewed: 04/03/2024 Reviewed by: Migdalia Cedillo RN - Fully Assessed Reason for Visit: Depo Provera Injection [1655] Primary Visit Diagnosis:Encounter for management and injection of depo-Provera [Z30.42] Prescriptions as of 04/03/2024 - medroxyPROGESTERone (DEPO-PROVERA) 150 mg/mL injection Inject 1 mL intramuscularly every 10 weeks. - aspirin, enteric coated (ASPIRIN, ENTERIC COATED) 81 mg EC tablet Take 81 mg by mouth once daily. - busPIRone (BUSPAR) 5 mg tablet Take 5 mg by mouth as needed. - albuterol HFA (PROVENTIL HFA, VENTOLIN HFA) 90 mcg/actuation inhaler Inhale 90 mcg as instructed as needed. - levothyroxine (SYNTHROID) 75 mcg tablet Take 75 mcg by mouth daily before breakfast. - ALBUTEROL SULFATE HFA INHALATION Inhale 2 Puffs as instructed every 4 hours as needed. - fluticasone (FLONASE) 50 mcg/actuation nasal spray Use 2 Sprays in each nostril once daily. - docusate sodium (COLACE) 100 mg capsule Take 1 capsule by mouth twice daily. - lamoTRIgine (LAMICTAL) 100 mg tablet Take 150 mg by mouth twice daily. - prazosin (MINIPRESS) 1 mg cap Take 1 mg by mouth three times a day. Take one capsule by mouth in the morning and two capsules at bedtime - desmopressin acetate (DDAVP) 0.2 mg tablet Take 0.2 mg by mouth once daily. - Cetirizine 10 mg cap Take by mouth once daily. - docusate sodium (COLACE) 100 mg capsule Take 100 mg by mouth twice daily. - paliperidone ER (INVEGA) 6 mg 24 hr tablet Take 9 mg by mouth once daily. Facility-Administered Medications as of 04/03/2024 - medroxyPROGESTERone 150 mg injection (DEPO-PROVERA) - medroxyPROGESTERone 150 mg injection (DEPO-PROVERA) Problem List As Of Date: 04/03/2024 (None) Disposition: Return in 10 weeks (on 06/12/2024). Follow-up and Disposition History for Encounter Date Provider Department Center 04/03/2024 [id number] WATCH REPAIRER [facility] *OBGYWM Jose A Amaro Encounter Status:Closed by MIGDALIA CEDILLO on 04/03/[address] [facility] XR CHEST 2 VIEWSon XR CHEST 2 VIEWS ORIGINAL EXAMINATION: TWO XRAY VIEWS OF THE CHEST 03/29/2024 2:20 pm COMPARISON: 12/28/2023 HISTORY: ORDERING SYSTEM PROVIDED HISTORY: Reason for Exam: Cough, asthma, smoker FINDINGS: Mild hyperinflation with flattening of both hemidiaphragms observed. The lungs are without acute focal process. There is no effusion or pneumothorax. The cardiomediastinal silhouette is without acute process. The osseous structures are without acute process. IMPRESSION: No acute process. Interpreted by: Kenneth Hernandez DO Preliminary Report By: Kenneth Hernandez DO Electronically signed By Kenneth Hernandez DO Dictated Date: 04/01/2024 9:52:13 AM Prelim Date: 04/01/2024 9:52:55 AM Sign Date: 04/01/2024 9:52:55 AM Ordering Provider: OLMAN SON Normal [facility] CVFLURVon 03-29-2024 FLU A PCR Negative Normal Negative [facility] Comment on above: Order Comment: STAT Performed By: #### C VFLURV #### [address] [address] FLU B PCR Negative Normal Negative [facility] Comment on above: Order Comment: STAT Performed By: #### C VFLURV #### [address] [address] RSV PCR Negative Normal Negative [facility] Comment on above: Order Comment: STAT Performed By: #### C VFLURV #### [place] [id number] [place], [place] [address] SARS-CoV-2 (COVID-19) RNA SONIA+probe Ql (Unsp spec) Negative Normal Negative [facility] Comment on above: Order Comment: STAT Result Comment: Resu lts from the Xpert Xpress CoV-2/Flu/RSV plus test should be correlated with the clinical history, epidemiological data, and other data available to the clinical evaluating the patient. Performance of the Xpert Xpress CoV-2/Flu/RSV plus test has only been established in nasopharyngeal swab specimen. Erroneous test results might occur from improper specimen collection, failure to follow the recommended sample collection, handling and storage procedures, technical error, or sample mix-up. False negative results may occur if a virus is present at a level below the analytical limit of detection. Viral nucleic acid may persist in vivo, independent of virus viability. Detection of analyte target(s) does not imply that the corresponding virus(es) are infectious or are the causative agents for clinical symptoms. Recent patient exposure to FluMist or other live attenuated influenza vaccines may cause inaccurate positive results. Performed By: #### C VFLURV #### [address] [address] LABORATORYOrdered By: Trupti Cabrales on 03-29-2024 FLUAV RNA SONIA+probe Ql (Resp) Negative (03/29/24 2:15 PM) Normal Negative AO Auto Urine SS FLUBV RNA SONIA+probe Ql (Resp) Negative (03/29/24 2:15 PM) Normal Negative AO Auto Urine SS RSV RNA SONIA+probe Ql (Resp) Negative (03/29/24 2:15 PM) Normal Negative AO Auto Urine SS SARS-CoV-2 (COVID-19) RNA SONIA+probe Ql (Resp) Negative 1 (03/29/24 2:15 PM) Normal Negative AO Auto Urine SS Comment on above: Interpretive Data: R esults from the Xpert Xpress CoV-2/Flu/RSV plus test should be correlated with the clinical history, epidemiological data, and other data available to the clinical evaluating the patient. Performance of the Xpert Xpress CoV-2/Flu/RSV plus test has only been established in nasopharyngeal swab specimen. Erroneous test results might occur from improper specimen collection, failure to follow the recommended sample collection, handling and storage procedures, technical error, or sample mix-up. False negative results may occur if a virus is present at a level below the analytical limit of detection. Viral nucleic acid may persist in vivo, independent of virus viability. Detection of analyte target(s) does not imply that the corresponding virus(es) are infectious or are the causative agents for clinical symptoms. Recent patient exposure to FluMist or other live attenuated influenza vaccines may cause inaccurate positive results. Office Visit Reporton 2023 Office Visit Report [facility] [address] [place] [address] OFFICE VISIT Date of Service: 03/18/24 MR#: [id number] Acct: [id number] Patient: ISIDRA ZALDIVAR Rep #: [id number] : 1985 Provider: Dr. Peterson hicks MD Age/Sex: 38/F Location: [facility] Status: Signed Intake Vital Signs 01/11/24 09:31 03/18/24 14:16 Height 5 ft 7 in 5 ft 7 in Weight: 169 lb 173 lb BMI 26.4 27.1 BP 106/66 110/70 Blood Pressure Location Lt brachial Lt brachial Position Sitting Sitting Respiration 17 17 Pulse 94 78 Pulse Source Monitor Monitor Temp 98.4 F 98.4 F Temp Source Temporal Temporal Pulse Oximetry (%) 98 99 Oxygen Delivery Method room air room air Intake Visit Reasons: B12 inject Chief Complaint: Hypothyroidism Allergies Environmental Allergies: Uncoded Allergy (Verified 11/30/23 09:13) sneezing promethazine (From Phenergan) Allergy (Verified 11/30/23 09:13) Vomiting cetirizine (From Zyrtec) Adverse Reaction (Unknown, Verified 11/30/23 09:13) unknown fluticasone (From Flovent HFA) Adverse Reaction (Verified 11/30/23 09:13) palpitations guaifenesin Adverse Reaction (Verified 11/30/23 09:13) Vomiting Office Meds cyanocobalamin (vitamin B-12) 1,000 mcg/mL injection solution Performing Provider: Peterson Patterson MD Performing Location: [facility] Administered by: Monica Leos on 03/18/24 14:19 Dose Route Admin Location Dispensed Lot Number Expiration Date RODDYC Osiel ufacturer 1,000 mcg IM left deltoid 1 mL [id number] 06/07/26 23977-677-25 MARJANTEMITOPE GREER Comments: The patient presents for B12 injection for treatment of fatigue. She has fatigue. Her last B12 injection was of benefit for fatigue. The patient is awake and alert. B12 1000mcg IM was administered today. There were no complications. Assessment and Plan Assessment and Plan (1) Fatigue: Status: Chronic Qualifiers: Fatigue type: chronic, unspecified Qualified Code(s): R53.82 - Chronic fatigue, unspecified Orders: Orders Vitamin B12 Today R53.82 - Chronic fatigue, unspecified 03/18/24 1636 Date Peterson Andrade Signature: Date (if applicable) CC: Normal [facility] BMP WITHOUT GLUCOSEon 2023 Anion gap [Moles/Vol] 13 mmol/L 7 - 17 mmol/L [facility] Calcium [Mass/Vol] 9.5 mg/dL 8.6 - 10. 5 mg/dL [facility] Chloride [Moles/Vol] 105 mmol/L 98 - 10 8 mmol/L [facility] CO2 [Moles/Vol] 27 mmol/L 21 - 31 mmol/L [facility] Creatinine [Mass/Vol] 0.67 mg/dL 0.50 - 1.20 mg/dL [facility] eGFR, CKD-EPI, Female - PINF [facility] Comment on above: Reported eGFR is bas ed on the CKD-EPI 2020 equation using creatinine, age, and sex. Potassium [Moles/Vol] 4.5 mmol/L 3.5 - 5.0 mmol/L [facility] Sodium [Moles/Vol] 140 mmol/L 135 - 145 mmol/L [facility] Urea nitrogen [Mass/Vol] 10 mg/dL 7 - 25 mg/dL [facility] Urea nitrogen/Creatinine [Mass ratio] 15 mg/mg [facility] Anion gap [Moles/Vol] 13 mmol/L Normal 7-17 [facility] Comment on above: Performed By: #### B MPN #### [facility] (DEFAULT) [address] [place] [address] Calcium [Mass/Vol] 9.5 mg/dL Normal 8.6-10.5 [facility] Comment on above: Performed By: #### B MPN #### [facility] (DEFAULT) [address] [place] [address] Chloride [Moles/Vol] 105 mmol/L Normal 98-108 [facility] Comment on above: Performed By: #### B MPN #### [facility] (DEFAULT) [address] [place] [address] CO2 [Moles/Vol] 27 mmol/L Normal 21-31 [facility] Comment on above: Performed By: #### B MPN #### [facility] (DEFAULT) [address] [place] [address] Creatinine [Mass/Vol] 0.67 mg/dL Normal 0.50-1.20 [facility] Comment on above: Performed By: #### B MPN #### [facility] (DEFAULT) [address] [place] [address] eGFR, CKD-EPI, Female > Normal >=60 [facility] Comment on above: Result Comment: Repo rted eGFR is based on the CKD-EPI 2020 equation using creatinine, age, and sex. Performed By: #### B MPN #### [facility] (DEFAULT) [address] [place] [address] Potassium [Moles/Vol] 4.5 mmol/L Normal 3.5-5.0 [facility] Comment on above: Performed By: #### B MPN #### [facility] (DEFAULT) [address] [place] [address] Sodium [Moles/Vol] 140 mmol/L Normal 135-145 [facility] Comment on above: Performed By: #### B MPN #### [facility] (DEFAULT) [address] [place] [address] Urea nitrogen [Mass/Vol] 10 mg/dL Normal 7-25 [facility] Comment on above: Performed By: #### B MPN #### [facility] (DEFAULT) [address] [place] [address] Urea nitrogen/Creatinine [Mass ratio] 15 mg/mg Normal [facility] Comment on above: Performed By: #### B MPN #### [facility] (DEFAULT) [address] [place] [address] POCT URINE DIPSTICK NON-AUTO MATEDon 03-13-2024 Amorphous sediment LM Ql ([facility]rine sed) [facility] Appearance (U) [facility] Bacteria LM Ql (Urine sed) [facility] Bilirubin Ql (U) Negative [facility] Casts LM.LPF (Urine sed) [#/Area] [facility] Color (U) [facility] Crystals LM Nom (Urine sed) [facility] Epithelial cells.squamous LM.HPF (Urine sed) [#/Area] [facility] Flow cytometry specialist review Vincent (Unsp spec) [Interp] [facility] Glucose Auto test strip (U) [Mass/Vol] Negative mg/dL [facility] Ketones [Mass/Vol] Negative mg/dL [facility] Leukocyte esterase Qn (U) [facility] Leukocyte esterase Test strip Ql (U) Negative [facility] Microscopic observation Gram stain Nom (Bronch spec) [facility] Nitrite Ql (U) Positive [facility] pH (U) 6.0 [pH] 5 - 7 [facility] Protein Ql (U) [facility] RBC LM.HPF (Urine sed) [#/Area] [facility] RBC Ql (U) Negative [facility] Specific gravity (U) [Rel density] 1.025 1.001 - 1.035 [facility] Transitional cells LM Ql (Urine sed) [facility] Urobilinogen Qn (U) T [facility] WBC LM.HPF (Urine sed) [#/Area] [facility] CNPNon 02-15-2024 DEVORA Telephone (OBGYWM) ----- ISIDRA ZALDIVAR ([id number]) 1985 F Date Time Provider Department 02/15/24 TRANG MCCLAIN During your visit today, we recorded the following information about you: Meghan Campos RN 02/15/2024 9:24 AM Signed ----- Message from Trang Mcclain APRN.DEVELOPMENT TECHNICIAN sent at 02/14/2024 8:26 PM EDT ----- Pap and HPV negative. Next Pap in 3 years due to past positive HPV. Eleonora noted on Pap - if she is having any symptoms, she should treat with Monistat 7 or generic - a applicator full at bedtime every night for 7 nights. ELMO Gandara Lindsey, RN 02/15/2024 9:25 AM Signed Left message to call office. Meghan Campos RN Allergies As of Date: 02/15/2024 Noted Allergy Reaction CETIRIZINE 02/09/2024 14 - Other: See Comments PHENERGAN (PROMETHAZINE) 06/14/2019 7 - Swelling SEASONAL ALLERGIES 04/17/2019 14 - Other: See Comments Comments: Stuffy head, watery eyes SUBOXONE (BUPRENORPHINE-NALOXONE) 02/09/2024 4 - Hives 11 - Vomiting Date Reviewed: 02/09/2024 Reviewed by: Trang Mcclain APRN.DEVELOPMENT TECHNICIAN - Fully Assessed Reason for Visit: Results [95] Prescriptions as of 02/19/2024 - medroxyPROGESTERone (DEPO-PROVERA) 150 mg/mL injection Inject 1 mL intramuscularly every 10 weeks. - aspirin, enteric coated (ASPIRIN, ENTERIC COATED) 81 mg EC tablet Take 81 mg by mouth once daily. - busPIRone (BUSPAR) 5 mg tablet Take 5 mg by mouth as needed. - albuterol HFA (PROVENTIL HFA, VENTOLIN HFA) 90 mcg/actuation inhaler Inhale 90 mcg as instructed as needed. - levothyroxine (SYNTHROID) 75 mcg tablet Take 75 mcg by mouth daily before breakfast. - ALBUTEROL SULFATE HFA INHALATION Inhale 2 Puffs as instructed every 4 hours as needed. - fluticasone (FLONASE) 50 mcg/actuation nasal spray Use 2 Sprays in each nostril once daily. - docusate sodium (COLACE) 100 mg capsule Take 1 capsule by mouth twice daily. - lamoTRIgine (LAMICTAL) 100 mg tablet Take 150 mg by mouth twice daily. - prazosin (MINIPRESS) 1 mg cap Take 1 mg by mouth three times a day. Take one capsule by mouth in the morning and two capsules at bedtime - desmopressin acetate (DDAVP) 0.2 mg tablet Take 0.2 mg by mouth once daily. - Cetirizine 10 mg cap Take by mouth once daily. - docusate sodium (COLACE) 100 mg capsule Take 100 mg by mouth twice daily. - paliperidone ER (INVEGA) 6 mg 24 hr tablet Take 9 mg by mouth once daily. Facility-Administered Medications as of 02/19/2024 - medroxyPROGESTERone 150 mg injection (DEPO-PROVERA) - medroxyPROGESTERone 150 mg injection (DEPO-PROVERA) Problem List As Of Date: 02/15/2024 (None) Encounter Status:Closed by MEGHAN CAMPOS on 02/19/24 [facility] Office Visit Reporton 2023 Office Visit Report [facility] [address] [place] [address] OFFICE VISIT Date of Service: 02/15/24 MR#: [id number] Acct: [id number] Patient: ISIDRA ZALDIVAR Rep #: [id number] : 1985 Provider: Dr. Peterson hicks MD Age/Sex: 38/F Location: [facility] Status: Signed Intake Vital Signs 11/30/23 10:55 02/15/24 10:59 Height 5 ft 7 in 5 ft 7 in Weight: 166 lb 169 lb BMI 25.9 26.4 BP 98/60 106/64 Blood Pressure Location Lt brachial Lt brachial Position Sitting Sitting Respiration 17 17 Pulse 71 116 H Pulse Source Monitor Monitor Temp 98.6 F 98.0 F Temp Source Temporal Temporal Pulse Oximetry (%) 98 98 Oxygen Delivery Method room air room air Intake Visit Reasons: B12 inject Chief Complaint: Hypothyroidism Allergies Environmental Allergies: Uncoded Allergy (Verified 11/30/23 09:13) sneezing promethazine (From Phenergan) Allergy (Verified 11/30/23 09:13) Vomiting cetirizine (From Zyrtec) Adverse Reaction (Unknown, Verified 11/30/23 09:13) unknown fluticasone (From Flovent HFA) Adverse Reaction (Verified 11/30/23 09:13) palpitations guaifenesin Adverse Reaction (Verified 11/30/23 09:13) Vomiting Office Meds cyanocobalamin (vitamin B-12) 1,000 mcg/mL injection solution Performing Provider: Peterson Patterson MD Performing Location: [facility] Administered by: Monica Leos on 02/15/24 11:03 Dose Route Admin Location Dispensed Lot Number Expiration Date [facility] Man ufacturer 1,000 mcg IM left deltoid 1 mL [id number] 03/07/26 45776-293-13 KIT GREER Comments: The patient presents for B12 injection for treatment of fatigue. She has fatigue. Her last B12 injection was of benefit for fatigue. The patient is awake and alert. B12 1000mcg IM was administered today. There were no complications. Assessment and Plan Assessment and Plan (1) Fatigue: Status: Chronic Qualifiers: Fatigue type: chronic, unspecified Qualified Code(s): R53.82 - Chronic fatigue, unspecified Orders: Orders Vitamin B12 Today R53.82 - Chronic fatigue, unspecified 02/15/24 1231 Date Peterson Andrade Signature: Date (if applicable) CC: Normal [facility] CNOVon 02-09-2024 CNOV Office Visit (OBGYWM ) ----- JUAN ZALDIVARELLE ([id number]) 1985 F Date Time Provider Department 02/09/24 10:00 AM TRANG MCCLAIN During your visit today, we recorded the following information about you: Blood pressure Weight Height 132/85 75.6 kg 1.689 m Trang Mcclain APRN.DEVELOPMENT TECHNICIAN 02/09/2024 10:34 AM Signed Chip Drier offered: Patient declinesBell Pickard is a 38 year old who presents for an annual gynecologic exam without complaints. Menses: No Menses - Depo Provera. Contraception: Depo Provera every 10 weeks HPV vaccine: completed Last Pap:12/27/2022 negative HPV negative Abnormal Pap: 04/22/2019 abnormal ASCUS HPV +, Leep Procedure 05/13/2019 high grade squamous intraepithelial lesion 05/22/19 - Endocervix, LEEP benign; 12/2021 normal, HRHPV positive [place] benign Last mammogram: never Sexually active: Not since 2019 History of STDS: GC and HPV Patient concerns for STD exposure: No. Last sexual contact: 2019 Documentation from previous visit of 12/27/2022 was copied and pasted, documentation has been reviewed and edited as necessary for today's visit. 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: Sexual Activity: Not Currently; Male Contraception: Injection PAST MEDICAL HISTORY Diagnosis Date ASCUS with positive high risk HPV cervical 04/2019 Learning disability OAB (overactive bladder) [employer] Schizo affective schizophrenia (HCC) PAST SURGICAL HISTORY Procedure Laterality Date CERVIX UTERI CONIZA LP ELCTRO EXCI 2019 LEEP pathology benign EYE SURGERY HX PAST SURGICAL HISTORY OF Bilateral bilateral knee surgery FAMILY HISTORY Problem Relation Age of Onset Heart disease Mother other (respiratory) Mother emphysema, former smoker Lung Cancer Father smoker Asthma Sister No Known Problems Sister No Known Problems Brother Lung Cancer Maternal Grandmother smoke Heart disease Maternal Grandmother SOCIAL HISTORY Social History Tobacco Use Smoking status: Every Day Current packs/day: 1.00 Average packs/day: 1 pack/day for 20.0 years (20.0 ttl pk-yrs) Types: Cigarettes Smokeless tobacco: Never Vaping Use Vaping status: Never Used Substance Use Topics Alcohol use: Never Drug use: Never Comment: 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 No bloating, early satiety, indigestion, or increased flatulence. Bladder: No dysuria, gross hematuria, urinary frequency, urinary urgency, or incontinence. Breast: No breast lumps, nipple d/c, overlying skin changes, redness or skin retraction. Allergies and current medication updated:Yes SENSITIVE EXAM: The sensitive examination was discussed with the Patient or Patient's Authorized Laborer Tin Can. As applicable, any other physician, advance practice provider, medical student, or other health professional student that will be observing or involved in the sensitive examination for educational or training purposes was discussed with the Patient or Authorized Laborer Tin Can. The Patient or Authorized Laborer Tin Can has agreed to proceed with the sensitive examination. (Sensitive examination includes inspection and/or palpation of the breasts, pelvis, prostate and anorectal regions). EXAM: BP 132/85 Ht 5' 6.5 (1.69m) Wt 166 lb 9.6 oz (75.6kg) LMP 06/19/2022 BMI 26.49 kg/(m2). GENERAL: pleasant, female in no apparent distress HEENT: Normocephalic, atraumatic, mucus membranes moist, and no lesions NECK: Supple, full range of motion, no adenopathy, and thyroid normal DERMATOLOGY: Normal, without lesions, non-icteric, and non-hirsute BREAST: soft, non-tender, symmetric, no dominant mass, normal nipple-areolar complex, no lymphadenopathy, and no nipple discharge CHEST: Normal inspiratory effort ABDOMEN: soft, non-tender, and no masses PELVIC: external genitalia normal, normal Bartholin's glands, urethra, Punaluu's glands, no vulvar lesions, no cervical lesions, physiologic discharge present, normal appearing perineal body and perianal region BIMANUAL: uterus normal size, shape and consistency, no adnexal masses, and non-tender RECTOVAGINAL: deferred. NEURO: alert and oriented x3,exam grossly non-focal EXTREMITIES: normal ASSESSMENT/PLAN: 1) Health maintenance: Pap done with HPV. Mammogram starting age 40. Nutrition, exercise and routine health maintenance exams reviewed. Smoking cessation: Benefits of smoking cessation reviewed. Patient encouraged to avoid smoking. HPV vaccine: completed series 2) Contraception: Depo Provera. Contraceptive options reviewed and information provided. 3) STD scre (more content not included)... Normal [facility] HIGH RISK HUMAN PAPILLOMA BREANA (HPV), PCR FOR DETECTION AND GENOTYPINGon 02-09-2024 HPV 16 Ag Ql (Unsp spec) Not detected Normal Not detected [facility] Comment on above: Order Comment: Speci men Type: FLUID SPECIMENOrdering Facility: [facility] Address: [address] [place] [address] Performed By: #### L [id number] ####TEJINDER LABORATORYCLIA [id number] [place] [address] [place] [facility] LABCLIA [id number] [place] [address] [place]#### HPVHRT ####[facility] LABCLIA [id number] [place] [address] [place] HPV 18 Ag Ql (Unsp spec) Not detected Normal Not detected [facility] Comment on above: Order Comment: Speci men Type: FLUID SPECIMENOrdering Facility: [facility] Address: [address] [place] [address] Performed By: #### L [id number] ####TEJINDER LABORATORYCLIA [id number] [place] [address] [place] [address] [facility] LABCLIA [id number] [place] [address] [place]#### HPVHRT ####[facility] LABCLIA [id number] [place] [address] [place] HPV 31+33+35+39+45+51+52+56+ 58+59+66+68 DNA SONIA+probe Ql (Cvx) Not detected Normal Not detected [facility] Comment on above: Order Comment: Speci men Type: FLUID SPECIMENOrdering Facility: [facility] Address: [address] [place] [address] Result Comment: High Risk HPV Other Type includes HPV types 31, 33, 35, 39, 45, 51, 52, 56, 58, 59, 66 and 68. Performed By: #### L [id number] ####TEJINDER LABORATORYCLIA [id number] [address] STATES [facility] LABCLIA [id number] [place] [address] [place]#### HPVHRT ####[facility] LABCLIA [id number] [place] [address] [place] PAP TESTon 02-09-2024 ADEQUACY Satisfactory for interpretation. Normal [facility] Comment on above: Order Comment: Speci men Type: FLUID SPECIMENOrdering Facility: [facility] Address: [address] [place] [address] Performed By: #### L [id number] ####TEJINDER LABORATORYCLIA [id number] [address] STATES OF [facility] LABCLIA [id number] [place] [address] [place]#### HPVHRT ####[facility] LABIA [id number] [place] [address] [place] CASE REPORT Normal [facility] Comment on above: Order Comment: Speci men Type: FLUID SPECIMENOrdering Facility: [facility] Address: [address] [place] [address] Result Comment: Gyne cologic Cytology Report Case: [id number] Authorizing Provider: Trang Mccalin APRN.DEVELOPMENT TECHNICIAN Collected: 02/09/2024 10:34 AM Ordering Location: OB/Gynecology Received: 02/09/2024 12:04 PM First Screen: Gmitro, Kenneth, CT, ASCP Specimen: Pap Test, ThinPrep, Cervix Performed By: #### L [id number] ####TEJINDER LABORATORYIA [id number] [address] LABCLIA [id number] [place] [address] [place]#### HPVHRT ####[facility] LABIA [id number] [place] [address] [place] CLINICAL HISTORY, CYTOLOGY, MANAGER OF HOSPITAL Depo-Provera Normal [facility] Comment on above: Order Comment: Speci men Type: FLUID SPECIMENOrdering Facility: [facility] Address: [address] [place] [address] Result Comment: No M enses, Other (Specify) Previous LEEP injection Performed By: #### L [id number] ####TEJINDER LABORATORYCLIA [id number] [address] LABCLIA [id number] [place] [address] [place]#### HPVHRT ####[facility] LABCLIA [id number] [place] [address] [place] CYTOLOGY PAP OTHER INT Fungal organisms morphologically consistent with Eleonora species. Normal [facility] Comment on above: Order Comment: Speci men Type: FLUID SPECIMENOrdering Facility: [facility] Address: [address] [place] [address] Performed By: #### L [id number] ####LANDER LABORATORYCLIA [id number] [place] [address] [place] [address] [facility] LABCLIA [id number] [place] [address] [place]#### HPVHRT ####[facility] LABCLIA [id number] [place] [address] [place] FINAL PERFORMING LAB Normal [facility] Comment on above: Order Comment: Speci men Type: FLUID SPECIMENOrdering Facility: [facility] Address: [address] [place], [place] [id number] Result Comment: Tech nical component, link trainer operator screening performed at [facility], [address] [place] [address] CLIA# [id number] Diagnostic interpretation performed at [facility], [address] [place] [id number] CLIA# [id number] Technical Staff Assistant: Cody Cervantes M.D. Performed By: #### L [id number] ####[facility]LAND[facility] LABORATORYCLIA [id number] [place] [id number] [place] [facility] LABCLIA [id number] [place] [address] [place]#### HPVHRT ####[facility] LABCLIA [id number] [place] [id number] [place] HPV REFLEX Yes HPV Normal [facility] Comment on above: Order Comment: Speci men Type: FLUID SPECIMENOrdering Facility: [facility] Address: [address] [place], [place] [id number] Performed By: #### L [id number] ####TEJINDER LABORATORYCLIA [id number] [place] [address] [facility] LABCLIA [id number] [place] [id number] [place]#### HPVHRT ####[facility] LABCLIA [id number] [address] [address] [place] INTERPRETATION, CYTOLOGY, MANAGER OF HOSPITAL Normal [facility] Comment on above: Order Comment: Speci men Type: FLUID SPECIMENOrdering Facility: [facility] Address: [address] [place] [address] Result Comment: Nega tive for intraepithelial lesion or malignancy. Performed By: #### L [id number] ####TEJINDER LABORATORYCLIA [id number] [place] [id number] [facility] LABCLIA [id number] [place] [address] [place]#### HPVHRT ####[facility] LABCLIA [id number] [place] [id number] [place] PAP DISCLAIMER COMMENT The Pap Smear is a screening test for cervical cancer. False negative results occur with all screening tests, emphasizing the need for rescreening at recommended intervals, and clinical correlation. Normal [facility] Comment on above: Order Comment: Speci men Type: FLUID SPECIMENOrdering Facility: [facility] Address: [address] [place] [place] [id number] Performed By: #### L [id number] ####TEJINDER LABORATORYCLIA [id number] [place] [address] [facility] LABCLIA [id number] [place] [id number] [place]#### HPVHRT ####[facility] LABCLIA [id number] [place] [address] PAP PRINCIPAL JAVA SOFTWARE ENGINEER COMMENT This specimen has be en analyzed by the ThinPrep Imaging System, an automated imaging and review system, which assists the laboratory in evaluating cells on ThinPrep Pap tests. Following automated imaging, selected gr from every slide are reviewed by a link trainer operator. Normal [facility] Comment on above: Order Comment: Speci men Type: FLUID SPECIMENOrdering Facility: [facility] Address: [address] [place] [address] Performed By: #### L [id number] ####TEJINDER LABORATORYCLIA [id number] [address] LABCLIA [id number] [address]#### HPVHRT ####[facility] LABCLIA [id number] [address] Office Visit Reporton 2023 Office Visit Report [facility] [address] [place] [address] OFFICE VISIT Date of Service: 01/11/24 MR#: [id number] Acct: [id number] Patient: ISIDRA ZALDIVAR Rep #: [id number] : 1985 Provider: Dr. Peterson hicks MD Age/Sex: 38/F Location: [facility] Status: Signed Intake Vital Signs 11/30/23 09:12 01/11/24 09:31 Height 5 ft 7 in 5 ft 7 in Weight: 165 lb 169 lb BMI 25.8 26.4 BP 119/72 106/66 Blood Pressure Location Lt brachial Lt brachial Position Sitting Sitting Respiration 17 Pulse 79 94 Pulse Source Monitor Monitor Temp 98.4 F Temp Source Temporal Pulse Oximetry (%) 97 98 Oxygen Delivery Method room air room air Intake Visit Reasons: B12 inject Chief Complaint: Hypothyroidism Allergies Environmental Allergies: Uncoded Allergy (Verified 11/30/23 09:13) sneezing promethazine (From Phenergan) Allergy (Verified 11/30/23 09:13) Vomiting cetirizine (From Zyrtec) Adverse Reaction (Unknown, Verified 11/30/23 09:13) unknown fluticasone (From Flovent HFA) Adverse Reaction (Verified 11/30/23 09:13) palpitations guaifenesin Adverse Reaction (Verified 11/30/23 09:13) Vomiting Office Meds cyanocobalamin (vitamin B-12) 1,000 mcg/mL injection solution Performing Provider: Peterson Patterson MD Performing Location: [facility] Administered by: Monica Leos on 01/11/24 09:30 Dose Route Admin Location Dispensed Lot Number Expiration Date [facility] Man ufacturer 1,000 mcg IM left deltoid 1 mL [id number] 03/07/26 42681-309-73 KIT GREER Comments: The patient presents for B12 injection for treatment of fatigue. She has fatigue. Her last B12 injection was of benefit for fatigue. The patient is awake and alert. B12 1000mcg IM was administered today. There were no complications. Assessment and Plan Assessment and Plan (1) Fatigue: Status: Chronic Qualifiers: Fatigue type: chronic, unspecified Qualified Code(s): R53.82 - Chronic fatigue, unspecified Orders: Orders Vitamin B12 Today R53.82 - Chronic fatigue, unspecified 01/11/24 1241 Date Peterson Patterson MD Cosigner Signature: Date (if applicable) CC: Normal [facility] CNNURSEon 01-10-2024 CNNURSE Nurse Visit (OBGYWM) ----- ISIDRA ZALDIVAR ([id number]) 1985 F Date Time Provider Department 01/10/24 11:00 AM NURSE WATCH REPAIRER [facility] OBGYWM During your visit today, we recorded the following information about you: Blood pressure Weight 138/70 76.7 kg Meghan Campos RN 01/10/2024 4:27 PM Signed Patient identified by name and date of . Isidra Zaldivar is here for a Depo Provera injection. Patient brought medication. Date last injected: 10/18/23 Depo-Provera, 150 mg, administered IM right upper quadrant gluteus, Lot # [id number], expiration date 03/07/2025. Depo-Provera was given without incident. Date of last menses: Patient's last menstrual period was 06/19/2022 (approximate). Irregular bleeding - No Menses ceased - Yes STD prevention discussed: Yes Patient instructed to return to clinic in 12 weeks. [email or web address] Provider Migdalia Elliott MD was present in office at time of injection. Meghan Campos RN Allergies As of Date: 01/10/2024 Noted Allergy Reaction PHENERGAN (PROMETHAZINE) 06/14/2019 7 - Swelling SEASONAL ALLERGIES 04/17/2019 14 - Other: See Comments Comments: Stuffy head, watery eyes Date Reviewed: 01/10/2024 Reviewed by: Meghan Campos RN - Fully Assessed Reason for Visit: Depo Provera Injection [1655] Primary Visit Diagnosis:Encounter for management and injection of depo-Provera [Z30.42] Order(s):medroxyPROGESTER one 150 mg injection (DEPO-PROVERA)Disp: Rfl: Prescriptions as of 01/10/2024 - medroxyPROGESTERone (DEPO-PROVERA) 150 mg/mL injection Inject 1 mL intramuscularly every 10 weeks. - aspirin, enteric coated (ASPIRIN, ENTERIC COATED) 81 mg EC tablet Take 81 mg by mouth once daily. - busPIRone (BUSPAR) 5 mg tablet Take 5 mg by mouth as needed. - albuterol HFA (PROVENTIL HFA, VENTOLIN HFA) 90 mcg/actuation inhaler Inhale 90 mcg as instructed as needed. - levothyroxine (SYNTHROID) 75 mcg tablet Take 75 mcg by mouth daily before breakfast. - ALBUTEROL SULFATE HFA INHALATION Inhale 2 Puffs as instructed every 4 hours as needed. - fluticasone (FLONASE) 50 mcg/actuation nasal spray Use 2 Sprays in each nostril once daily. - docusate sodium (COLACE) 100 mg capsule Take 1 capsule by mouth twice daily. - lamoTRIgine (LAMICTAL) 100 mg tablet Take 150 mg by mouth twice daily. - prazosin (MINIPRESS) 1 mg cap Take 1 mg by mouth three times a day. Take one capsule by mouth in the morning and two capsules at bedtime - desmopressin acetate (DDAVP) 0.2 mg tablet Take 0.2 mg by mouth once daily. - Cetirizine 10 mg cap Take by mouth once daily. - docusate sodium (COLACE) 100 mg capsule Take 100 mg by mouth twice daily. - paliperidone ER (INVEGA) 6 mg 24 hr tablet Take 9 mg by mouth once daily. Facility-Administered Medications as of 01/10/2024 - medroxyPROGESTERone 150 mg injection (DEPO-PROVERA) - medroxyPROGESTERone 150 mg injection (DEPO-PROVERA) Problem List As Of Date: 01/10/2024 (None) Prescriptions ordered this encounter Disp Refills Start End MEDROXYPROGESTERONE 150 MG/ML INTRAM* 01/10/2024 12/11/2024 Route: INTRAMUSCULA Disposition: Return in 12 weeks (on 04/03/2024). Follow-up and Disposition History for Encounter Date Provider Department Center 01/10/2024 [id number] WATCH REPAIRER FOR[facility]LY [facility], [facility]–1983 *MARGY Amaro Encounter Status:Closed by MEGHAN CAMPOS on 01/10/24 [facility] Anastacio 01-10-2024 DEVORA Telephone (MARGY) ----- ISIDRA ZALDIVAR ([id number]) 1985 F Date Time Provider Department 01/10/24 TRANG MCCLAIN During your visit today, we recorded the following information about you: Chente Antunez RN 01/10/2024 8:13 AM Signed Please file depo CAM order for nurse visit today. Chente Antunez RN Allergies As of Date: 01/10/2024 Noted Allergy Reaction PHENERGAN (PROMETHAZINE) 06/14/2019 7 - Swelling SEASONAL ALLERGIES 04/17/2019 14 - Other: See Comments Comments: Stuffy head, watery eyes Date Reviewed: 01/10/2024 Reviewed by: Meghan Campos RN - Fully Assessed Reason for Visit: Orders [681] Primary Visit Diagnosis:Surveillance for Depo-Provera contraception [Z30.42] Order(s):medroxyPROGESTER one 150 mg injection (DEPO-PROVERA)Disp: Rfl: Prescriptions as of 01/10/2024 - medroxyPROGESTERone (DEPO-PROVERA) 150 mg/mL injection Inject 1 mL intramuscularly every 10 weeks. - aspirin, enteric coated (ASPIRIN, ENTERIC COATED) 81 mg EC tablet Take 81 mg by mouth once daily. - busPIRone (BUSPAR) 5 mg tablet Take 5 mg by mouth as needed. - albuterol HFA (PROVENTIL HFA, VENTOLIN HFA) 90 mcg/actuation inhaler Inhale 90 mcg as instructed as needed. - levothyroxine (SYNTHROID) 75 mcg tablet Take 75 mcg by mouth daily before breakfast. - ALBUTEROL SULFATE HFA INHALATION Inhale 2 Puffs as instructed every 4 hours as needed. - fluticasone (FLONASE) 50 mcg/actuation nasal spray Use 2 Sprays in each nostril once daily. - docusate sodium (COLACE) 100 mg capsule Take 1 capsule by mouth twice daily. - lamoTRIgine (LAMICTAL) 100 mg tablet Take 150 mg by mouth twice daily. - prazosin (MINIPRESS) 1 mg cap Take 1 mg by mouth three times a day. Take one capsule by mouth in the morning and two capsules at bedtime - desmopressin acetate (DDAVP) 0.2 mg tablet Take 0.2 mg by mouth once daily. - Cetirizine 10 mg cap Take by mouth once daily. - docusate sodium (COLACE) 100 mg capsule Take 100 mg by mouth twice daily. - paliperidone ER (INVEGA) 6 mg 24 hr tablet Take 9 mg by mouth once daily. Facility-Administered Medications as of 01/10/2024 - medroxyPROGESTERone 150 mg injection (DEPO-PROVERA) Problem List As Of Date: 01/10/2024 (None) Prescriptions ordered this encounter Disp Refills Start End MEDROXYPROGESTERONE 150 MG/ML INTRAM* 01/10/2024 12/11/2024 Route: INTRAMUSCULA Encounter Status:Closed by CHENTE ANTUNEZ on 01/10/[address] [facility] XR CHEST 2 VIEWSon XR CHEST 2 VIEWS ORIGINAL HISTORY: Abnormal breath sounds COMPARISON: 15 March 2023 FINDINGS: The lungs and pleural spaces are clear. The cardiac silhouette is within normal limits. The pulmonary vasculature is within normal limits. IMPRESSION: Clear lungs. Interpreted by: Jesús Luong MD Preliminary Report By: Jesús Luong MD Electronically signed By Jesús Luong MD Dictated Date: 12/29/2023 8:42:20 AM Prelim Date: 12/29/2023 8:43:01 AM Sign Date: 12/29/2023 8:43:01 AM Ordering Provider: OLMAN Massey [facility] ([place]) Endocrinology Visit Reporton 11-30-2023 Endocrinology Visit Report [facility] [address] [place] [address] OFFICE VISIT Date of Service: 11/30/23 MR#: [id number] Acct: [id number] Name: ISIDRA ZALDIVAR Rep #: [id number] : 1985 Provider: Monica Persaud Age/Sex: 37/F [facility] Status: Signed Intake Vital Signs 09/05/22 09:23 09/01/23 08:18 10/31/23 13:38 11/30/23 09:12 Height 5 ft 7 in 5 ft 7 in 5 ft 7 in 5 ft 7 in Weight: 165 lb BMI 25.8 BP 119/72 Blood Pressure Location Lt brachial Position Sitting Pulse 79 Pulse Source Monitor Pulse Oximetry (%) 97 Oxygen Delivery Method room air Intake Visit Reasons: 1 Y FU Chief Complaint: Hypothyroidism Center Customer Service Associate Required: No Accompanied by: Self Is patient in pain?: No Allergies Environmental Allergies: Uncoded Allergy (Verified 11/30/23 09:13) sneezing promethazine (From Phenergan) Allergy (Verified 11/30/23 09:13) Vomiting cetirizine (From Zyrtec) Adverse Reaction (Unknown, Verified 11/30/23 09:13) unknown fluticasone (From Flovent HFA) Adverse Reaction (Verified 11/30/23 09:13) palpitations guaifenesin Adverse Reaction (Verified 11/30/23 09:13) Vomiting Medications ???Medication ???Instructions ???Recorded ???Confirmed ???Type docusate sodium 100 mg capsule 100 mg PO BID 01/17/22 11/30/23 History albuterol sulfate 90 mcg/actuation 2 puff inhalation Q6H PRN 02/16/22 11/30/23 History aerosol inhaler shortness of breath or wheezing cholecalciferol (vitamin D3) 50 50 mcg PO DAILY 11/28/22 11/30/23 History mcg (2,000 unit) tablet folic acid 1 mg tablet 1 mg PO DAILY 11/28/22 11/30/23 History topiramate 25 mg tablet 25 mg PO QHS 11/28/22 11/30/23 History pantoprazole 40 mg tablet,delayed 40 mg PO DAILY #14 tabs 03/06/23 11/30/23 Rx release buspirone 5 mg tablet 5 mg PO BID PRN anxiety 06/20/23 11/30/23 History chlorpromazine 25 mg tablet 25 mg PO DAILY 06/20/23 11/30/23 History desmopressin 0.2 mg tablet (DDAVP) 0.2 mg PO BID 06/27/23 11/30/23 History fluticasone propionate 50 2 spray intranasal DAILY 06/27/23 11/30/23 History mcg/actuation nasal spray,suspension medroxyprogesterone 150 mg/mL 150 mg IM .[id number] 06/27/23 11/30/23 History intramuscular suspension lamotrigine 150 mg tablet 150 mg PO BID #60 tabs 10/31/23 11/30/23 Rx mometasone-formoterol HFA 200 2 puff inhalation BID #13 grams 11/10/23 11/30/23 Rx mcg-5 mcg/actuation aerosol inhaler (Dulera) tiotropium bromide 2.5 2 inh inhalation QDAY #1 ea 11/10/23 11/30/23 Rx mcg/actuation mist for inhalation (Spiriva Respimat) aspirin 81 mg tablet,delayed 81 mg PO DAILY 11/30/23 11/30/23 History release (Adult Low Dose Aspirin) levothyroxine 75 mcg tablet 75 mcg PO DAILY #30 tabs 11/30/23 11/30/23 Rx oxybutynin chloride 10 mg 10 mg PO DAILY 11/30/23 11/30/23 History tablet,extended release 24 hr PFSH Medical History Hypothyroidism (acquired) Wears glasses Thyroid disease Seizures Gastric reflux Smoker Asthma History of pain when walking Epilepsy Abnormal weight loss Lois's thyroiditis Seizure disorder Seasonal allergies Schizophrenia Narcotic addiction Depression Anxiety Thyroid enlargement Folate deficiency Iron deficiency Weight loss Left anterior knee pain Surgical History H/O knee surgery Family History Mother COPD (chronic obstructive pulmonary disease) Social History household members: spouse and children number of children: 1 Smoking Status: Current every day smoker tobacco type: cigarettes Tobacco: How many years used: 20 second hand exposure: Yes alcohol intake: former details: recovering alcoholic substance use type: former substance user seatbelt use: never HPI HPI Chief Complaint: Hypothyroidism Details: ISIDRA ZALDIVAR, is a 37 F who presents to the office today for follow up. 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 She is taking levothyroxine 0.75 mg daily. TSH in October was normal. She is feeling fine. She was having GI symptoms, but is feeling better on PPI. ROS Const Constitutional: No anorexia, excessive sweating, malaise, night sweats, weight change or change in appetite Eyes Eyes: No change in vision ENT ENT: No hearing loss, nasal congestion or difficulty swallowing Cardio Cardiology: No chest pain at rest, excessive sweating, shortness of breath, dyspnea on exertion, irregular heart rhythm or palpitations Musc Musculoskeletal: No abnormal gait, joint pain, numbness or tingling Neuro Neurology: No abnormal gait, m (more content not included)... Normal [facility] Office Visit Reporton 2023 Office Visit Report [facility] [address] [place] [address] OFFICE VISIT Date of Service: 11/30/23 MR#: [id number] Acct: [id number] Patient: ISIDRA ZALDIVAR Rep #: [id number] : 1985 Provider: Dr. Peterson hicks MD Age/Sex: 37/F Location: [facility] Status: Signed Intake Vital Signs 10/31/23 13:38 11/30/23 09:12 11/30/23 10:55 Height 5 ft 7 in 5 ft 7 in 5 ft 7 in Weight: 164 lb 165 lb 166 lb BMI 25.7 25.8 25.9 BP 108/20 L 119/72 98/60 Blood Pressure Location Lt brachial Lt brachial Lt brachial Position Sitting Sitting Sitting Respiration 17 17 Pulse 93 79 71 Pulse Source Monitor Monitor Monitor Temp 98.2 F 98.6 F Temp Source Temporal Temporal Pulse Oximetry (%) 97 97 98 Oxygen Delivery Method room air room air room air Intake Visit Reasons: B12 inject Chief Complaint: Hypothyroidism Allergies Environmental Allergies: Uncoded Allergy (Verified 11/30/23 09:13) sneezing promethazine (From Phenergan) Allergy (Verified 11/30/23 09:13) Vomiting cetirizine (From Zyrtec) Adverse Reaction (Unknown, Verified 11/30/23 09:13) unknown fluticasone (From Flovent HFA) Adverse Reaction (Verified 11/30/23 09:13) palpitations guaifenesin Adverse Reaction (Verified 11/30/23 09:13) Vomiting Office Meds cyanocobalamin (vitamin B-12) 1,000 mcg/mL injection solution Performing Provider: Peterson Patterson MD Performing Location: [facility] Administered by: Monica Leos on 11/30/23 10:57 Dose Route Admin Location Dispensed Lot Number Expiration Date NDC Man ufacturer 1,000 mcg IM left deltoid 1 mL [id number] 03/07/26 94438-828-08 KIT GREER Comments: The patient presents for B12 injection for treatment of fatigue. She has fatigue. Her last B12 injection was of benefit for fatigue. The patient is awake and alert. B12 1000mcg IM was administered today. There were no complications. Assessment and Plan Assessment and Plan (1) Fatigue: Status: Chronic Qualifiers: Fatigue type: chronic, unspecified Qualified Code(s): R53.82 - Chronic fatigue, unspecified Orders: Orders Vitamin B12 Today R53.82 - Chronic fatigue, unspecified 11/30/23 1522 Date Peterson Patterson MD Cosigner Signature: Date (if applicable) CC: Normal [facility] Lamotrigine (Lamictal) Level on 11-07-2023 LAMOTRIGINE 3.1 ug/mL Normal 2.0-20.0 [facility] Comment on above: Result Comment: Dete ction Limit = 1.0 Performed at: [facility] [address] [id number] Decorating Machine Operator: Fantasma Curtis MD, Phone: [phone] Performed By: #### L 9349.0445, L503.8279, L500.2528 #### [facility] [address] [place], [address] .Auto Diffon 11-04-2023 Basophil, Absolute 0.0 10 3/mcL Normal 0.0-0.2 [facility] ([place]) Comment on above: Performed By: #### C BC, GFR, LIPID, ANEU, CMP, ADIFF ####[address] [place], [place] [address]#### B12 ####[address] [address] Basophils/100 WBC (Bld) 0.5 % Normal 0.0-2.5 [facility] ([place]) Comment on above: Performed By: #### C BC, GFR, LIPID, ANEU, CMP, ADIFF ####[place] [address]#### B12 ####[address] [address] Eosinophil, Absolute 0.2 10 3/mcL Normal 0.0-0.4 [facility] ([place]) Comment on above: Performed By: #### C BC, GFR, LIPID, ANEU, CMP, ADIFF ####[place] [address]#### B12 ####[address] [address] Eosinophils/100 WBC (Bld) 2.7 % Normal 0.0-7.0 [facility] ([place]) Comment on above: Performed By: #### C BC, GFR, LIPID, ANEU, CMP, ADIFF ####[place] [address]#### B12 ####[address] [address] Lymphocyte, Absolute 2.6 10 3/mcL Normal 0.8-3.9 [facility] ([place]) Comment on above: Performed By: #### C BC, GFR, LIPID, ANEU, CMP, ADIFF ####[place] [address]#### B12 ####[address] [address] Lymphocytes/100 WBC (Bld) 38.9 % Normal 10.0-50.0 [facility] ([place]) Comment on above: Performed By: #### C BC, GFR, LIPID, ANEU, CMP, ADIFF ####[place] [address]#### B12 ####[address] [address] Monocyte, Absolute 0.5 10 3/mcL Normal 0.2-1.0 [facility] ([place]) Comment on above: Performed By: #### C BC, GFR, LIPID, ANEU, CMP, ADIFF ####[address] [address]#### B12 ####[address] [address] Monocytes/100 WBC (Bld) 7.3 % Normal 1.7-13.0 [facility] ([place]) Comment on above: Performed By: #### C BC, GFR, LIPID, ANEU, CMP, ADIFF ####[place] [address]#### B12 ####[address] [address] Neutrophils/100 WBC (Bld) 50.6 % Normal 37.0-80.0 [facility] ([place]) Comment on above: Performed By: #### C BC, GFR, LIPID, ANEU, CMP, ADIFF ####[place] [address]#### B12 ####[address] [address] .GFRon 11-04-2023 GFR 115 ml/min/1.73sqm Normal [facility] ([place]) Comment on above: Result Comment: GFR Population mean for , Non- Americans Ages 20-29 = 116 mL/min/1.73 sq.m. Ages 30-39 = 107 mL/min/1.73 sq.m. Ages 40-49 = 99 mL/min/1.73 sq.m. Ages 50-59 = 93 mL/min/1.73 sq.m. Ages 60-69 = 85 mL/min/1.73 sq.m. Ages 70+ = 75 mL/min/1.73 sq.m. Chronic Kidney Disease: Less than 60 mL/min/1.73 square meters End Stage Renal Disease: Less than 15 mL/min/1.73 square meters Performed By: #### C BC, GFR, LIPID, ANEU, CMP, ADIFF ####[place] [address]87#### B12 ####[address] [address] GFR Non- 95 ml/min/1.73sqm Normal [facility] ([place]) Comment on above: Result Comment: GFR Population mean for , Non- Americans Ages 20-29 = 116 mL/min/1.73 sq.m. Ages 30-39 = 107 mL/min/1.73 sq.m. Ages 40-49 = 99 mL/min/1.73 sq.m. Ages 50-59 = 93 mL/min/1.73 sq.m. Ages 60-69 = 85 mL/min/1.73 sq.m. Ages 70+ = 75 mL/min/1.73 sq.m. Chronic Kidney Disease: Less than 60 mL/min/1.73 square meters End Stage Renal Disease: Less than 15 mL/min/1.73 square meters Performed By: #### C BC, GFR, LIPID, ANEU, CMP, ADIFF ####[place] [address] [place] [address]#### B12 ####[place] [address] .NEUABSon 11-04-2023 Neutrophil, Absolute 3.4 10 3/mcL Normal 2.9-6.2 [facility] ([place]) Comment on above: Performed By: #### C BC, GFR, LIPID, ANEU, CMP, ADIFF ####[place] [address] [place] [address]#### B12 ####[place] [id number] Ammoniaon 11-04-2023 Ammonia (P) [Moles/Vol] 17.0 umol/L Normal 11-32 [facility] Comment on above: Performed By: #### L 3300.4400, L503.5510, L500.4050 #### [facility] [address] [place], [address] B12on 11-04-2023 Cobalamin (Vitamin B12) [Mass/Vol] 361 pg/mL Normal 211-911 [facility] ([place]) Comment on above: Performed By: #### C BC, GFR, LIPID, ANEU, CMP, ADIFF ####[place] [address]#### B12 ####[place] [address] CBCon 11-04-2023 Erythrocyte distribution width (RBC) [Ratio] 13.4 % Normal 11.5-14.5 [facility] ([place]) Comment on above: Performed By: #### C BC, GFR, LIPID, ANEU, CMP, ADIFF ####[place] [address]#### B12 ####[place] [address] Hematocrit (Bld) [Volume fraction] 40.4 % Normal 37.0-47.0 [facility] ([place]) Comment on above: Performed By: #### C BC, GFR, LIPID, ANEU, CMP, ADIFF ####[place] [address]#### B12 ####[place] [address] Hgb 13.8 G/dL Normal 12.0-16.0 [facility] ([place]) Comment on above: Performed By: #### C BC, GFR, LIPID, ANEU, CMP, ADIFF ####[place] [address]#### B12 ####[place] [address] MCH (RBC) [Entitic mass] 30.9 pg Normal 27.0-31.2 [facility] ([place]) Comment on above: Performed By: #### C BC, GFR, LIPID, ANEU, CMP, ADIFF ####[place] [address]#### B12 ####[place] [address] MCHC 34.2 G/dL Normal 33.0-37.0 [facility] ([place]) Comment on above: Performed By: #### C BC, GFR, LIPID, ANEU, CMP, ADIFF ####[place] [address]#### B12 ####[place] [address] MCV (RBC) [Entitic vol] 90.3 fL Normal 80.0-94.0 [facility] ([place]) Comment on above: Performed By: #### C BC, GFR, LIPID, ANEU, CMP, ADIFF ####[place] [address]#### B12 ####[place] [address] Platelet 159 10 3/mcL Normal 130-400 [facility] ([place]) Comment on above: Performed By: #### C BC, GFR, LIPID, ANEU, CMP, ADIFF ####[place] [address]#### B12 ####[place] [address] Platelet mean volume (Bld) [Entitic vol] 10.8 fL High 7.4-10.4 [facility] ([place]) Comment on above: Performed By: #### C BC, GFR, LIPID, ANEU, CMP, ADIFF ####[place] [address]#### B12 ####[place] [address] RBC 4.48 10 6/mcL Normal 4.20-5.40 [facility] ([place]) Comment on above: Performed By: #### C BC, GFR, LIPID, ANEU, CMP, ADIFF ####[place] [address]#### B12 ####[place] [address] WBC 6.7 10 3/mcL Normal 4.6-10.8 [facility] ([place]) Comment on above: Performed By: #### C BC, GFR, LIPID, ANEU, CMP, ADIFF ####[place] [address]#### B12 ####[address] [address] CMPon 11-04-2023 Albumin Level 3.8 G/dL Normal 3.5-5.0 [facility] ([place]) Comment on above: Performed By: #### C BC, GFR, LIPID, ANEU, CMP, ADIFF ####[place] [address]#### B12 ####[place] [address] Albumin/Globulin [Mass ratio] 1.3 {ratio} Normal 1.1-2.5 [facility] ([place]) Comment on above: Performed By: #### C BC, GFR, LIPID, ANEU, CMP, ADIFF ####[place] [address]#### B12 ####[place] [address] ALP [Catalytic activity/Vol] 82 U/L Normal 40-135 [facility] ([place]) Comment on above: Performed By: #### C BC, GFR, LIPID, ANEU, CMP, ADIFF ####[place] [address]#### B12 ####[place] [address] ALT [Catalytic activity/Vol] 30 U/L Normal 14-59 [facility] ([place]) Comment on above: Performed By: #### C BC, GFR, LIPID, ANEU, CMP, ADIFF ####[place] [address]#### B12 ####[address] [address] AST [Catalytic activity/Vol] 16 U/L Normal 10-40 [facility] ([place]) Comment on above: Performed By: #### C BC, GFR, LIPID, ANEU, CMP, ADIFF ####[place] [address]#### B12 ####[address] [address] Bili Total 0.5 mg/dL Normal 0.2-1.0 [facility] ([place]) Comment on above: Result Comment: Use of this assay is not recommended for patients undergoing treatment with eltrombopag due to the potential for falsely elevated results. Performed By: #### C BC, GFR, LIPID, ANEU, CMP, ADIFF ####[place] [address]#### B12 ####[address] [address] BUN/Creatinine Ratio 16 ratio Normal 7-27 [facility] ([place]) Comment on above: Performed By: #### C BC, GFR, LIPID, ANEU, CMP, ADIFF ####[place] [address]#### B12 ####[address] [address] Calcium [Mass/Vol] 8.6 mg/dL Normal 8.4-10.2 [facility] ([place]) Comment on above: Performed By: #### C BC, GFR, LIPID, ANEU, CMP, ADIFF ####[place] [address]#### B12 ####[address] [address] Chloride [Moles/Vol] 105 mmol/L Normal 98-107 [facility] ([place]) Comment on above: Performed By: #### C BC, GFR, LIPID, ANEU, CMP, ADIFF ####[place] [address]#### B12 ####[address] [address] CO2 [Moles/Vol] 28 mmol/L Normal 22-29 [facility] ([place]) Comment on above: Performed By: #### C BC, GFR, LIPID, ANEU, CMP, ADIFF ####[place] [address]#### B12 ####[address] [address] Creatinine [Mass/Vol] 0.70 mg/dL Normal 0.55-1.02 [facility] ([place]) Comment on above: Performed By: #### C BC, GFR, LIPID, ANEU, CMP, ADIFF ####[place] [address]#### B12 ####[address] [address] Electrolyte Balance 8.0 mEq/L Normal 4.0-15.0 [facility] ([place]) Comment on above: Performed By: #### C BC, GFR, LIPID, ANEU, CMP, ADIFF ####[place] [address]#### B12 ####[place] [address] Globulin 3.0 G/dL Normal [facility] ([place]) Comment on above: Performed By: #### C BC, GFR, LIPID, ANEU, CMP, ADIFF ####[place] [address]#### B12 ####[address] [address] Glucose [Mass/Vol] 85 mg/dL Normal 70-105 [facility] ([place]) Comment on above: Performed By: #### C BC, GFR, LIPID, ANEU, CMP, ADIFF ####[place] [address]#### B12 ####[address] [address] Potassium [Moles/Vol] 4.8 mmol/L Normal 3.5-5.1 [facility] ([place]) Comment on above: Performed By: #### C BC, GFR, LIPID, ANEU, CMP, ADIFF ####[place] [address]#### B12 ####[address] [address] Sodium [Moles/Vol] 141 mmol/L Normal 136-145 [facility] ([place]) Comment on above: Performed By: #### C BC, GFR, LIPID, ANEU, CMP, ADIFF ####[facility] [place], [place] [address]#### B12 ####[place] [address] [place] [address] Total Protein 6.8 G/dL Normal 6.4-8.2 [facility] ([place]) Comment on above: Performed By: #### C BC, GFR, LIPID, ANEU, CMP, ADIFF ####[facility] [place], [place] [address]#### B12 ####[place] [address] [place] [address] Urea nitrogen [Mass/Vol] 11 mg/dL Normal 7-18 [facility] ([place]) Comment on above: Performed By: #### C BC, GFR, LIPID, ANEU, CMP, ADIFF ####[place] [address] [place], [place] [address]#### B12 ####[place] [address] [place] [address] Comprehensive Metabolic Prof [facility] 11-04-2023 Albumin [Mass/Vol] 3.5 g/dL Normal 3.2-5.0 [facility] [place] [facility] Comment on above: Performed By: #### L 3300.4400, L503.5510, L500.4050 #### [facility] [address] [place], [address] Albumin/Globulin [Mass ratio] 1.0 {ratio} Normal 0.9-2.4 [facility] Comment on above: Performed By: #### L 3300.4400, L503.5510, L500.4050 #### [facility] [address] [place], [address] ALK P 77 U/L Normal 45-117 [facility] Comment on above: Performed By: #### L 3300.4400, L503.5510, L500.4050 #### [facility] [address] [place], [address] ALT [Catalytic activity/Vol] 25 U/L Normal 13-56 [facility] Comment on above: Performed By: #### L 3300.4400, L503.5510, L500.4050 #### [facility] [address] [place], [address] AST [Catalytic activity/Vol] 13 U/L Low 15-37 [facility] Comment on above: Performed By: #### L 3300.4400, L503.5510, L500.4050 #### [facility] [address] [place], [address] Bilirubin [Mass/Vol] 0.40 mg/dL Normal 0.20-1.00 [facility] Comment on above: Result Comment: For patients on eltrombopag therapy, use of Dimension [place] TBIL is not recommended. Performed By: #### L 3300.4400, L503.5510, L500.4050 #### [facility] [address] [place], [address] BUN/CRE 14.0 RATIO Normal 10-20 [facility] Comment on above: Performed By: #### L 3300.4400, L503.5510, L500.4050 #### [facility] [address] [place], [address] CA,Total 9.0 mg/dL Normal 8.5-10.1 [facility] Comment on above: Performed By: #### L 3300.4400, L503.5510, L500.4050 #### [facility] [address] [place], [address] Chloride [Moles/Vol] 110 mmol/L High 98-107 [facility] Comment on above: Performed By: #### L 3300.4400, L503.5510, L500.4050 #### [facility] [address] [place], [address] CO2 [Moles/Vol] 26.0 mmol/L Normal 21.0-32.0 [facility] Comment on above: Performed By: #### L 3300.4400, L503.5510, L500.4050 #### [facility] [address] [place], [address] Creatinine [Mass/Vol] 0.72 mg/dL Normal 0.55-1.02 [facility] Comment on above: Result Comment: The validity of the calculated GFR GFRAA in patients over 70 years has not been determined. Clinical correlation is essential. Performed By: #### L 3300.4400, L503.5510, L500.4050 #### [facility] [address] [place], [address] EST GFR - AA 118 mL/min Normal >60 [facility] Comment on above: Result Comment: Afri can Haitian GFR Calc Performed By: #### L 3300.4400, L503.5510, L500.4050 #### [facility] [address] [place], [address] GAP 3 Low 5-15 [facility] Comment on above: Performed By: #### L 3300.4400, L503.5510, L500.4050 #### [facility] [address] [place], [address] GFR/1.73 sq M.predicted among non-blacks MDRD (S/P/Bld) [Vol rate/Area] 98 mL/min/{1.73_m2} Normal >60 [facility] Comment on above: Result Comment: Non- GFR Calc Performed By: #### L 3300.4400, L503.5510, L500.4050 #### [facility] [address] [place], [address] Globulin (S) [Mass/Vol] 3.4 g/dL Normal 2.2-4.2 [facility] Comment on above: Performed By: #### L 3300.4400, L503.5510, L500.4050 #### [facility] [address] [place], [address] Glucose [Mass/Vol] 87 mg/dL Normal 74-106 [facility] Comment on above: Performed By: #### L 3300.4400, L503.5510, L500.4050 #### [facility] [address] [place], [address] Potassium [Moles/Vol] 4.0 mmol/L Normal 3.5-5.1 [facility] Comment on above: Performed By: #### L 3300.4400, L503.5510, L500.4050 #### [facility] [address] [place], [address] Sodium [Moles/Vol] 139 mmol/L Normal 136-145 [facility] Comment on above: Performed By: #### L 3300.4400, L503.5510, L500.4050 #### [facility] [address] [place], [address] T PROT 6.9 g/dL Normal 6.4-8.2 [facility] Comment on above: Performed By: #### L 3300.4400, L503.5510, L500.4050 #### [facility] [address] [place], [address] Urea nitrogen [Mass/Vol] 10 mg/dL Normal 7-18 [facility] Comment on above: Performed By: #### L 3300.4400, L503.5510, L500.4050 #### [facility] [address] [place], [address] LABORATORYOrdered By: SYSTEM SYSTEM on 11-04-2023 Albumin BCP dye [Mass/Vol] 3.8 G/dL Normal 3.5 - 5.0 G/dL AO ADM SS Albumin/Globulin [Mass ratio] 1.3 {ratio} Normal 1.1 - 2.5 ratio AO ADM SS ALP [Catalytic activity/Vol] 82 U/L Normal 40 - 135 U/L AO ADM SS ALT With P-5'-P [Catalytic activity/Vol] 30 U/L Normal 14 - 59 U/L AO ADM SS AST With P-5'-P [Catalytic activity/Vol] 16 U/L Normal 10 - 40 U/L AO ADM SS Basophil, Absolute 0.0 103/mcL Normal 0.0 - 0.2 10^3/mcL AO Workflow SS Basophils/100 WBC (Bld) 0.5 % Normal 0.0 - 2.5 % AO Workflow SS Bilirubin [Mass/Vol] 0.5 mg/dL Normal 0.2 - 1 .0 mg/dL AO ADM SS Comment on above: Interpretive Data: U se of this assay is not recommended for patients undergoing treatment with eltrombopag due to the potential for falsely elevated results. Calcium [Mass/Vol] 8.6 mg/dL Normal 8.4 - 10. 2 mg/dL AO ADM SS Chloride [Moles/Vol] 105 mmol/L Normal 98 - 10 7 mmol/L AO ADM SS CO2 [Moles/Vol] 28 mmol/L Normal 22 - 29 mmol/L AO ADM SS Cobalamin (Vitamin B12) [Mass/Vol] 361 pg/mL Normal 211 - 911 pg/mL AH ADM SS Creatinine [Mass/Vol] 0.70 mg/dL Normal 0.55 - 1.02 mg/dL AO ADM SS Electrolyte Balance 8.0 mEq/L Normal 4.0 - 15 .0 mEq/L AO ADM SS Eosinophil, Absolute 0.2 103/mcL Normal 0.0 - 0 .4 10^3/mcL AO Workflow SS Eosinophils/100 WBC (Bld) 2.7 % Normal 0.0 - 7.0 % AO Workflow SS Erythrocyte distribution width (RBC) [Ratio] 13.4 % Normal 11.5 - 14.5 % AO Workflow SS GFR/1.73 sq M.predicted among blacks MDRD (S/P/Bld) [Vol rate/Area] 115 ml/min/1.73sqm Invalid Interpretation Code AO Chemistry S Comment on above: Interpretive Data: GFR Population mean for , Non- Americans Ages 20-29 = 116 mL/min/1.73 sq.m. Ages 30-39 = 107 mL/min/1.73 sq.m. Ages 40-49 = 99 mL/min/1.73 sq.m. Ages 50-59 = 93 mL/min/1.73 sq.m. Ages 60-69 = 85 mL/min/1.73 sq.m. Ages 70+ = 75 mL/min/1.73 sq.m. Chronic Kidney Disease: Less than 60 mL/min/1.73 square meters End Stage Renal Disease: Less than 15 mL/min/1.73 square meters GFR/1.73 sq M.predicted among non-blacks MDRD (S/P/Bld) [Vol rate/Area] 95 ml/min/1.73sqm Invalid Interpretation Code AO Chemistry S Comment on above: Interpretive Data: GFR Population mean for , Non- Americans Ages 20-29 = 116 mL/min/1.73 sq.m. Ages 30-39 = 107 mL/min/1.73 sq.m. Ages 40-49 = 99 mL/min/1.73 sq.m. Ages 50-59 = 93 mL/min/1.73 sq.m. Ages 60-69 = 85 mL/min/1.73 sq.m. Ages 70+ = 75 mL/min/1.73 sq.m. Chronic Kidney Disease: Less than 60 mL/min/1.73 square meters End Stage Renal Disease: Less than 15 mL/min/1.73 square meters Globulin 3.0 G/dL Invalid Interpretation Code AO ADM SS Glucose [Mass/Vol] 85 mg/dL Normal 70 - 105 mg/dL AO ADM SS Hematocrit (Bld) [Volume fraction] 40.4 % Normal 37.0 - 47.0 % AO Workflow SS Hemoglobin (Bld) [Mass/Vol] 13.8 G/dL Normal 12.0 - 16.0 G/dL AO Workflow SS Lymphocyte, Absolute 2.6 103/mcL Normal 0.8 - 3 .9 10^3/mcL AO Workflow SS Lymphocytes/100 WBC (Bld) 38.9 % Normal 10.0 - 50.0 % AO Workflow SS MCH (RBC) [Entitic mass] 30.9 pg Normal 27. 0 - 31.2 pg AO Workflow SS MCHC 34.2 G/dL Normal 33.0 - 37.0 G/dL AO Workflow SS MCV (RBC) [Entitic vol] 90.3 fL Normal 80.0 - 94.0 fL AO Workflow SS Monocyte, Absolute 0.5 103/mcL Normal 0.2 - 1.0 10^3/mcL AO Workflow SS Monocytes/100 WBC (Bld) 7.3 % Normal 1.7 - 13.0 % AO Workflow SS Neutrophil, Absolute 3.4 103/mcL Normal 2.9 - 6 .2 10^3/mcL AO Workflow SS Neutrophils/100 WBC (Bld) 50.6 % Normal 37.0 - 80.0 % AO Workflow SS Platelet mean volume (Bld) [Entitic vol] 10.8 fL High 7.4 - 10.4 fL AO Workflow SS Platelets (Bld) [#/Vol] 159 103/mcL Normal 130 - 400 10^3/mcL AO Workflow SS Potassium [Moles/Vol] 4.8 mmol/L Normal 3.5 - 5.1 mmol/L AO ADM SS Protein [Mass/Vol] 6.8 G/dL Normal 6.4 - 8.2 G/dL AO ADM SS RBC (Bld) [#/Vol] 4.48 106/mcL Normal 4.20 - 5.40 10^6/mcL AO Workflow SS Sodium [Moles/Vol] 141 mmol/L Normal 136 - 145 mmol/L AO ADM SS Urea nitrogen [Mass/Vol] 11 mg/dL Normal 7 - 18 mg/dL AO ADM SS Urea nitrogen/Creatinine [Mass ratio] 16 ratio Normal 7 - 27 ratio AO ADM SS WBC (Bld) [#/Vol] 6.7 103/mcL Normal 4.6 - 10.8 10^3/mcL AO Workflow SS LABORATORYOrdered By: Dilcia Morel on 11-04-2023 Cholesterol [Mass/Vol] 156 mg/dL Normal 0 - 2 00 mg/dL AO ADM SS Comment on above: Interpretive Data: C holesterol Reference Interval: Less than 200 Desirable 200-239 Borderline high risk 240 and above High risk Cholesterol in HDL [Mass/Vol] 50 mg/dL Normal 40 - 60 mg/dL AO ADM SS Cholesterol in LDL [Mass/Vol] 96 mg/dL Normal 0 - 130 mg/dL AO ADM SS Triglyceride [Mass/Vol] 49 mg/dL Normal 0 - 150 mg/dL AO ADM SS Comment on above: Interpretive Data: T riglyceride Reference Interval: Less than 150 Normal 150-199 Borderline high risk 200-499 High risk 500 or higher Very high risk LIPIDon 11-04-2023 Cholesterol [Mass/Vol] 156 mg/dL Normal 0-200 [facility] ([place]) Comment on above: Result Comment: Chol esterol Reference Interval: Less than 200 Desirable 200-239 Borderline high risk 240 and above High risk Performed By: #### C BC, GFR, LIPID, ANEU, CMP, ADIFF ####[place] [address]#### B12 ####[address] [address] Cholesterol in HDL [Mass/Vol] 50 mg/dL Normal 40-60 [facility] ([place]) Comment on above: Performed By: #### C BC, GFR, LIPID, ANEU, CMP, ADIFF ####[place] [address]#### B12 ####[address] [address] Cholesterol in LDL [Mass/Vol] 96 mg/dL Normal 0-130 [facility] ([place]) Comment on above: Performed By: #### C BC, GFR, LIPID, ANEU, CMP, ADIFF ####[place] [address]#### B12 ####[address] [address] Triglyceride [Mass/Vol] 49 mg/dL Normal 0-150 [facility] ([place]) Comment on above: Result Comment: Trig lyceride Reference Interval: Less than 150 Normal 150-199 Borderline high risk 200-499 High risk 500 or higher Very high risk Performed By: #### C BC, GFR, LIPID, ANEU, CMP, ADIFF ####[place] [address]#### B12 ####[address] [address] T4 Free Directon 11-04-2023 T4 FREE DIRECT 1.13 ng/dL Normal 0.76-1.46 [facility] Comment on above: Performed By: #### L 501.9520, L506.0400 #### [facility] [address] [place], [address] Thyroid Stim Hormone (TSH)on 11-04-2023 TSH 3.01 uIU/mL Normal 0.358-3.74 [facility] Comment on above: Performed By: #### L 501.9520, L506.0400 #### [facility] [address] [place], [place], [address] Neurology Visit Reporton Neurology Visit Report [facility] [address], [address] [place] [address] OFFICE VISIT Date of Service: 10/31/23 MR#: [id number] Acct: [id number] Name: ISIDRA ZALDIVAR Rep #: [id number] : 1985 Provider: Dr. Peterson hicks MD Age/Sex: 37/F Location: [facility] Status: Signed Intake Vital Signs 05/04/23 12:45 10/20/23 08:14 10/31/23 13:38 Height 5 ft 7 in 5 ft 7 in 5 ft 7 in Weight: 164 lb BMI 25.7 BP 108/20 L Blood Pressure Location Lt brachial Position Sitting Respiration 17 Pulse 93 Pulse Source Monitor Temp 98.2 F Temp Source Temporal Pulse Oximetry (%) 97 Oxygen Delivery Method room air Intake Visit Reasons: 6 M FU Chief Complaint: Center Customer Service Associate Required: No Accompanied by: Self Allergies Environmental Allergies: Uncoded Allergy (Verified 10/31/23 13:40) sneezing promethazine (From Phenergan) Allergy (Verified 10/31/23 13:40) Vomiting cetirizine (From Zyrtec) Adverse Reaction (Unknown, Verified 10/31/23 13:40) unknown fluticasone (From Flovent HFA) Adverse Reaction (Verified 10/31/23 13:40) palpitations guaifenesin Adverse Reaction (Verified 10/31/23 13:40) Vomiting [facility] Medical History Hypothyroidism (acquired) Wears glasses Thyroid disease Seizures Gastric reflux Smoker Asthma History of pain when walking Epilepsy Abnormal weight loss Lois's thyroiditis Seizure disorder Seasonal allergies Schizophrenia Narcotic addiction Depression Anxiety Thyroid enlargement Folate deficiency Iron deficiency Weight loss Left anterior knee pain Surgical History H/O knee surgery Family History Mother COPD (chronic obstructive pulmonary disease) Social History household members: spouse and children number of children: 1 Smoking Status: Current every day smoker tobacco type: cigarettes Tobacco: How many years used: 20 second hand exposure: Yes alcohol intake: former details: recovering alcoholic substance use type: former substance user seatbelt use: never HPI HPI Chief Complaint: Details: Interim History: Isidra returns for follow-up visit. She has a history of asthma, Lois's thyroiditis/hypothyroidis m, depression, anxiety, bipolar disorder, paranoid schizophrenia, learning disability, and epilepsy. She previously saw a neurologist in [place]. She is somewhat vague with regard to her history. It appears that she began to have seizures during childhood. She has had absence seizure's characterized by staring episodes in the past. These at times had progressed to generalized clonic seizures with which she had associated tongue biting and urinary incontinence. Records indicate that her seizures are preceded by feeling tired and shaky. Her last generalized seizure occurred in 2002. She had previously 2-3 absence seizure's per month. She has not had any seizures since May 2022. She is unaware of any cause for her seizures. She has been taking lamotrigine since childhood. She does not recall any other seizure medication she may have taken in the past for her seizures. She is tolerating lamotrigine well and reports that she has been compliant with therapy. She left school in the ninth grade. She has a prior history of alcohol abuse. She quit drinking alcohol in 2015. She has a prior history of narcotic abuse and marijuana use; she stated that her last use of these substances was in 2015. She denied having numbness, weakness, vision change, dizziness or gait imbalance. In years past she had migraine headaches with which she had associated photophobia, phonophobia and nausea; her headaches resolved around 2016. 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 She was unaware of any brain imaging studies that may have been performed in the past prior to her initial visit at this office in May 2022. A neurology office note from 09/09/2021 states that a routine EEG in September 2018 and an extended EEG in December 2018 were normal (official reports of the studies are presently not available); the office note also states that the patient had an EEG at the age of 15 years which she was told was abnormal (an official report is presently not available). She is independent in basic activities of daily living at home. Per prior discussion, she has not been driving. She is not employed. She takes buspirone. She has been undergoing an evaluation for weight loss. She has seen a machine sole leveler, Dr. Hernandez, and has been noted to have mild hepatomegaly (likely secondary to fatty liver) and elevated cancer antigen 125 (CA125) and left ovarian cyst versus dominant follicle was noted. The patient has (more content not included)... Normal [facility] Pulmonary Visit Reporton Pulmonary Visit Report [facility] [place] [address] [place] [address] OFFICE VISIT Date of Service: 10/20/23 MR#: [id number] Acct: [id number] Name: ISIDRA ZALDIVAR Rep #: [id number] : 1985 Provider: KUSHAL Lira Age/Sex: 37/F Location[facility] Status: Signed Assessment and Plan Assessment and Plan (1) Stage 1 mild chronic obstructive pulmonary disease by Global Initiative for Chronic Obstructive Lung Disease classification: Status: Acute Comment: FEV1 82% Plan: She does not appear to be an exacerbation of COPD today. No need for prednisone or antibiotic. Continue current maintenance medication, continue Trelegy. No additional testing at this time. Contact the office for any new or worsening symptoms. An acute visit and typically be arranged within 1-2 days. Follow-up in 1 year. (2) Lung nodule: Status: Chronic Comment: 2 mm noncalcified nodule right upper lobe Plan: Stable. Continue monitoring by repeating a diagnostic CT scan of the chest in 1 year. Follow-up in the office afterwards to discuss test results. Orders: Orders Chest without Contrast 1 Year R91.1 - Solitary pulmonary nodule Plan Details Follow Up: 1 Year ([facility]) HPI 1 M FU Chief Complaint: Response to Trelegy HPI Comments Details: This patient presents to the office today to follow-up after recently being started on Trelegy and to discuss test results. She is ambulatory and currently on room air. She has not recently been seen in the ED or urgent care for any respiratory illness. She has not required any antibiotics or prednisone for any breathing problems. She is compliant with use of Trelegy 1 puff daily. She does report rinsing her mouth out after each use. She denies medication side effect such as sore throat or thrush. She has not recently needed to use her albuterol rescue inhaler. She does have shortness of breath on exertion, this is not worse since last office visit. She does report that it is impacted by hot humid temperatures. She has an occasional cough of clear mucus. She denies any hemoptysis. She has wheezing when exposed to hot humid temperatures. She also has chest tightness related to weather. She denies any fever, chills or body aches. Test results personally viewed patient: Alpha 1 antitrypsin genotype testing screening results M/M, normal. CT scan of the chest without contrast completed on September 28, 2023. No acute pulmonary process. Noted is a 2 mm noncalcified nodular density in the right upper lobe. Intake Vital Signs 09/01/23 08:18 10/20/23 08:14 Height 5 ft 7 in 5 ft 7 in Weight: 164 lb 160 lb BMI 25.7 25.0 BP 110/68 114/72 Blood Pressure Location Lt brachial Lt brachial Position Sitting Sitting Respiration 16 Pulse 78 80 Pulse Source Monitor Monitor Temp 98.5 F 98 F Temperature Source Temporal Artery Temporal Artery Pulse Oximetry (%) 98 97 Oxygen Delivery Method room air room air Intake Visit Reasons: 1 M FU Chief Complaint: Center Customer Service Associate Required: No DME Vendor: N/A Accompanied by: Self Is patient in pain?: No Allergies Environmental Allergies: Uncoded Allergy (Verified 10/20/23 11:26) sneezing promethazine (From Phenergan) Allergy (Verified 10/20/23 11:26) Vomiting cetirizine (From Zyrtec) Adverse Reaction (Unknown, Verified 10/20/23 11:26) unknown fluticasone (From Flovent HFA) Adverse Reaction (Verified 10/20/23 11:26) palpitations guaifenesin Adverse Reaction (Verified 10/20/23 11:26) Vomiting Medications ???Medication ???Instructions ???Recorded ???Confirmed ???Type docusate sodium 100 mg capsule 100 mg PO BID 01/17/22 10/20/23 History albuterol sulfate 90 mcg/actuation 2 puff inhalation Q6H PRN 02/16/22 10/20/23 History aerosol inhaler shortness of breath or wheezing cholecalciferol (vitamin D3) 50 50 mcg PO DAILY 11/28/22 10/20/23 History mcg (2,000 unit) tablet folic acid 1 mg tablet 1 mg PO DAILY 11/28/22 10/20/23 History topiramate 25 mg tablet 25 mg PO QHS 11/28/22 10/20/23 History pantoprazole 40 mg tablet,delayed 40 mg PO DAILY #14 tabs 03/06/23 10/20/23 Rx release lamotrigine 150 mg tablet 150 mg PO BID #60 tabs 05/04/23 10/20/23 Rx buspirone 5 mg tablet 5 mg PO BID PRN anxiety 06/20/23 10/20/23 History chlorpromazine 25 mg tablet 25 mg PO DAILY 06/20/23 10/20/23 History oxybutynin chloride 5 mg 10 mg PO DAILY 06/20/23 10/20/23 History tablet,extended release 24 hr desmopressin 0.2 mg tablet (DDAVP) 0.2 mg PO BID 06/27/23 10/20/23 History fluticasone propionate 50 2 spray intranasal DAILY 06/27/23 10/20/23 History mcg/actuation nasal spray,suspension medroxyprogesterone 150 mg/mL 150 mg IM .[id number] 06/27/23 10/20/23 History intramuscular suspension fluticasone fur. 200 m (more content not included)... [facility] CNN[facility]SE Nurse Visit (OBGYWM) ----- ISIDRA ZALDIVAR ([id number]) 1985 F Date Time Provider Department 10/18/23 11:00 AM NURSE WATCH REPAIRER [facility] O[facility]YWM During your visit today, we recorded the following information about you: Blood pressure Weight 112/74 73.5 kg Anastacia Reese LPN 10/18/2023 11:09 AM Signed Patient identified by name and date of . Isidra Zaldivar is here for a Depo Provera injection. Patient brought medication. Date last injected: 07/19/2023 Depo-Provera, 150 mg, administered IM left upper quadrant gluteus, Lot # [id number], expiration date 01/2025. Depo-Provera was given without incident. Date of last menses: Patient's last menstrual period was 06/19/2022 (approximate). Irregular bleeding - Yes Menses ceased - Yes STD prevention discussed: Yes Patient instructed to return to clinic in 12 weeks. [email or web address] Provider Dr. Elliott was present in office at time of injection. Anastacia Reese LPN Allergies As of Date: 10/18/2023 Noted Allergy Reaction PHENERGAN (PROMETHAZINE) 06/14/2019 7 - Swelling SEASONAL ALLERGIES 04/17/2019 14 - Other: See Comments Comments: Stuffy head, watery eyes Date Reviewed: 10/18/2023 Reviewed by: Anastacia Reese LPN - Fully Assessed Reason for Visit: Depo Provera Injection [1655] Primary Visit Diagnosis:Encounter for management and injection of depo-Provera [Z30.42] Prescriptions as of 10/18/2023 - aspirin, enteric coated (ASPIRIN, ENTERIC COATED) 81 mg EC tablet Take 81 mg by mouth once daily. - busPIRone (BUSPAR) 5 mg tablet Take 5 mg by mouth as needed. - medroxyPROGESTERone (DEPO-PROVERA) 150 mg/mL injection Inject 1 mL intramuscularly every 10 weeks. - albuterol HFA (PROVENTIL HFA, VENTOLIN HFA) 90 mcg/actuation inhaler Inhale 90 mcg as instructed as needed. - levothyroxine (SYNTHROID) 75 mcg tablet Take 75 mcg by mouth daily before breakfast. - ALBUTEROL SULFATE HFA INHALATION Inhale 2 Puffs as instructed every 4 hours as needed. - fluticasone (FLONASE) 50 mcg/actuation nasal spray Use 2 Sprays in each nostril once daily. - docusate sodium (COLACE) 100 mg capsule Take 1 capsule by mouth twice daily. - lamoTRIgine (LAMICTAL) 100 mg tablet Take 150 mg by mouth twice daily. - prazosin (MINIPRESS) 1 mg cap Take 1 mg by mouth three times daily. Take one capsule by mouth in the morning and two capsules at bedtime - desmopressin acetate (DDAVP) 0.2 mg tablet Take 0.2 mg by mouth once daily. - Cetirizine 10 mg cap Take by mouth once daily. - docusate sodium (COLACE) 100 mg capsule Take 100 mg by mouth twice daily. - paliperidone ER (INVEGA) 6 mg 24 hr tablet Take 9 mg by mouth once daily. Problem List As Of Date: 10/18/2023 (None) Disposition: Return in 12 weeks (on 01/10/2024). Follow-up and Disposition History for Encounter Date Provider Department Center 10/18/2023 [id number] WATCH REPAIRER [facility] *OBGYWM [place] [facility] Encounter Status:Closed by ANASTACIA REESE on 10/18/[address] [facility] Chest without Contraston Chest without Contrast [facility] Services [address] [place], [place] [id number] Chest without Contrast MR#: [id number] Acct: [id number] Name: ISIDRA ZALDIVAR Rep #: [id number] : 1985 F 37 From: [place] MD PCP: Dr. Olman Son, DO Status: REG CLI Study: Chest without Contrast Date of Exam: 09/28/23 Exam# [id number] Ordering Dr: Michelle Lira NP [id number] INDICATION: Fever and cough EXAMINATION: CT CHEST WITHOUT CONTRAST - CT Chest W/O Contrast Injection TECHNIQUE: Helically acquired images were obtained of the chest. A radiation dose optimization technique was used for this scan. IV Contrast dosage and agent: None. COMPARISON: CT heart from 07/21/2023. Previous plain films FINDINGS: LUNGS, PLEURA AND LARGE AIRWAYS: Lung windows show the lungs to be normally expanded. There is no organized infiltrate, effusion, or suspicious noncalcified mass or nodule. There is a 2 mm calcified pleural-based granuloma in the right upper lobe on axial image 34. There is a 2 mm noncalcified nodule in the right upper lobe abutting the major fissure on axial image 50, and a 3 mm calcified granuloma abutting the minor fissure on axial image 68.. THYROID: No thyroid lesions. HEART AND PERICARDIUM: Heart size is normal. No pericardial effusion. CORONARY ARTERIES: Coronary artery calcification VESSELS: Thoracic aorta is not dilated. MEDIASTINUM AND KULDEEP: No mediastinal or hilar adenopathy. Esophagus is unremarkable. No hiatal hernia. UPPER ABDOMEN: No acute pathology. BONES: No suspicious lytic or blastic abnormality. CT/Chest without Contrast IMPRESSION: No acute pulmonary process 2 mm noncalcified nodular density in the right upper lobe abutting the major fissure on axial image 50. Lung-RADS score: 2 - Benign Appearance or Behavior. Recommend continued annual screening with a low-dose CT (LDCT) in 12 months. Tiny calcified granulomata also noted in the right lung. No specific follow-up needed No suspicious adenopathy Electronically Signed: [place] MD at 9:02 EDT , CC: KUSHAL Lira; Dr. Olman Son DO Instrument Worker: Signed Normal [facility] CT CORONARY ANGIOGRAPHY W+W/ O CONTRASTon 09-13-2023 CT CORONARY ANGIOGRAPHY W+W/O CONTRAST ORIGINAL PATIENT NAME:ISIDRA ZALDIVAR : 1985 GENDER: Female ORDERING PROVIDER:GEOFFREY HUTTON CLINICAL STATEMENT: CP, abnormal stress ECG lt side chest/lung pain- pt states trouble with lt lung, pt losing wt, abn stress ecg. TECHNIQUE: 1. Noncontrast CT of the heart was obtained for calcium scoring. 2. CTA with 105 c.c Omnipaque 350 IV contrast performed using prospective ECG gating about 1 cm above the AV to the diaphragm. FOV is very small to best evaluate the coronary arteries. Non-coronary chest anatomy is evaluated by Radiologist (Split read - REPORTED SEPARATELY). Cumulative dose is 3 mSv 3. 3D postprocessing: MPR, MIP, +/- CPR, and volume rendering were performed. 4. This exam was performed according to our departmental dose optimization program, and includes the following measures where applicable: automated exposure control, adjustment of the mAs and/or kVp according to patient size and/or exam, and an iterative reconstruction algorithm. 5. This report adheres to SCCT / ACR / NASCI 2016 expert consensus document entitled, CAD-RADS(TM) Coronary Artery Disease - Reporting and Data System. MEDS: PO metoprolol (mg): \X09\50 IV metoprolol (mg): \X09\None Nitroglycerin (mg): \X09\None COMPLICATIONS: None ACQUISITION HR (bpm): \X09\59, regular rhythm. TECHNICAL QUALITY: \X09\Good with minor artifact but good diagnostic quality. LIMITATIONS: \[id number]\None Abbreviations: LM: left main, RCA: right coronary artery, PDA: posterior descending artery, PLB: posterolateral branch, AM: acute marginal, LAD: left anterior descending, LCx: left circumflex artery, OM: obtuse marginal, Dx: diagonal, D1: first diagonal, D2: second diagonal, HR: heart rate, RI: ramus intermedius, PA: pulmonary artery FINDINGS: COMPARISON: None Most of the non-coronary chest anatomy is excluded in the FOV. CARDIAC FINDINGS: NON-CORONARY HEART: \X0909\Not enlarged. PERICARDIUM:\X09\Contour preserved. No effusion. No thickening. No calcifications. AV: \[id number]\Tricuspid. No thickening. No calcifications. MV: \[id number]\No thickening. No calcifications. CORONARY CALCIUM SCORING Percentile (based on age/sex normogram):\X09\<75 AGATSTON SCORE \X09\LM:\X09\0 \X09\LAD:\X09\0 \X09\LCx:\X09\0 \X09\RCA:\X09\0 \X09\TOTAL: 0 Calcium Volume (mm^3): \X09\0 Refer to PACS images for more information regarding calcium scoring ([email or web address]) DOMINANCE:\X09\Right ANATOMY:\X09\Normal origin and course. LM originates from L coronary sinus and RCA originates from R coronary sinus. LM gives rise to the LAD and LCx. . The LAD has 2 diagonals. The LCX has 2 obtuse marginals . The RCA gives rise to 1 acute marginals, PDA and 2 right posterolateral branches. Coronary CTA interpretation utilizes diagonal branches to segment the LAD (prox, mid, distal) rather than the septal branches (as used on conventional angiography) as the latter are too small to visualize on CTA consistently. Left main: Minor irregularities LAD and diagonal branches: Mild to moderate mid LAD stenosis (50%) Mild stenosis mid D1. Left circumflex and obtuse marginal branches: Minor irregularities Right coronary artery, PDA, and posterior lateral branches: Minor irregularities NON-CARDIAC FINDINGS REPORTED BY RADIOLOGIST A SEPARATE REPORT IMPRESSION: 1. Noncardiac findings were independently reported by Radiologist. See Separate Radiologist Report for Noncardiac findings. 2. CAD-RADS 2 3. Mild to moderate mid LAD stenosis (50%). Mild stenosis mid D1. Significant motion artifact affects stenosis severity assessment. No significant stenosis. 4. Agatston score: 0. Percentile (%): <75 for age and gender in asymptomatic individuals. CAD-RADS 2 Degree of Maximal Coronary Stenosis = 25-49% - Mild stenosis Interpretation = Minimal non-obstructive CAD Recommendation = Consider risk modification (aspirin, statin therapy, life style changes etc.,) Interpreted By: Jim Bejarano MD Preliminary Report By: Jim Bejarano MD Electronically Signed By: Jim Bejarano MD Dictated Date: 09/13/2023 9:16:48 PM Prelim Date: 09/13/2023 9:16:48 PM Sign Date: 09/13/2023 9:35:18 PM Ordering Provider:Geoffrey Massey [facility]) CT CORONARY EXTRACARDIACon 0 09-11-2023 CT CORONARY EXTRACARDIAC ORIGINAL EXAMINATION: CT THORAX WITH CONTRAST EXTRACARDIAC 09/09/2023 9:09 am TECHNIQUE: CT of the chest with the administration of intravenous contrast. Multiplanar reformatted images are provided for review. Automated exposure control, iterative reconstruction, and/or weight based adjustment of the mA/kV was utilized to reduce the radiation dose to as low as reasonably achievable. Cardiac images were obtained and reported separately in a report from cardiology. COMPARISON: None. HISTORY: ORDERING SYSTEM PROVIDED HISTORY: Reason for Exam: CP lt side chest/lung pain- pt states trouble with lt lung, pt losing wt, abn stress ecg FINDINGS: Mediastinum: Unremarkable. Lungs/pleura: Unremarkable. Upper Abdomen: Unremarkable. Soft Tissues/Bones: Unremarkable. IMPRESSION: Extra cardiac structures are unremarkable. Interpreted by: Lux Patel Preliminary Report By: Lux Patel Electronically signed By Lux Patel Dictated Date: 09/11/2023 12:52:54 PM Prelim Date: 09/11/2023 12:54:03 PM Sign Date: 09/11/2023 12:54:03 PM Ordering Provider: GEOFFREY Massey [facility] ([place]) Pulmonary Visit Reporton Pulmonary Visit Report [facility] Pulmonary Medicine of [address] [place] [address] OFFICE VISIT Date of Service: 09/01/23 MR#: [id number] Acct: [id number] Name: ISIDRA ZALDIVAR Rep #: [id number] : 1985 Provider: KUSHAL Lira Age/Sex: 37/F [place] [facility] Status: Signed Assessment and Plan Assessment and Plan (1) Stage 1 mild chronic obstructive pulmonary disease by Global Initiative for Chronic Obstructive Lung Disease classification: Status: Acute Comment: FEV1 82% Plan: Recently clarified. Placing the patient on triple therapy with use of Trelegy. The patient reports that all of my family has COPD. I am going to have an alpha-1 screening done today. We will discuss results at her follow-up visit. She was instructed to rinse her mouth out after the use of Trelegy. Follow-up in the office in approximately 1 month to evaluate her response to Trelegy. (2) Airway obstruction, anatomic: Status: Suspected Plan: Recent testing indicates possible airway obstruction. Sending the patient to be evaluated with a CT scan of the chest without contrast. This patient's case was reviewed by Dr. Root, who personally reviewed the imaging. The case was also discussed with Dr. Ambrosio. Orders: Orders Chest without Contrast Today J98.8 - Other specified respiratory disorders Alpha One Screening Test Today J44.9 - Chronic obstructive pulmonary disease, unspecified Medications: New ilkguubmhpv-qpcgeipma-jpw anter 200-62.5-25 mcg (Trelegy Ellipta) 1 inh inhalation DAILY 60 ea 6RF J44.9 - Chronic obstructive pulmonary disease, unspecified Plan Details Follow Up: 1 Month ([facility]) HPI 2 M FU Chief Complaint: test results HPI Comments Details: This patient presents to the office today to discuss test results. She is ambulatory and currently on room air. She has not recently been seen in the ED or urgent care for any respiratory illness. She has not required any antibiotics or prednisone for any breathing problems. She is currently using albuterol rescue inhaler approximately once daily. She is also on Flonase. She continues to smoke cigarettes. She is smoking 1 pack/day. She does have shortness of breath on exertion. Currently she denies any cough, sputum production or hemoptysis. She denies any wheezing, chest tightness, chest pain or palpitations. She also denies any fever, chills or body aches. Test results personally viewed with patient: Pulmonary function test completed on July 07, 2023. 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 FEV1 82% of predicted. Walking oximetry completed on July 11, 2023. The patient was able to ambulate total of 1121 feet over the course of 6 minutes. She did not become hypoxic and does not currently require any supplemental oxygen at this time. Intake Vital Signs 06/27/23 05:42 07/21/23 12:54 09/01/23 08:18 Height 5 ft 7 in 5 ft 7 in 5 ft 7 in Weight: 164 lb BMI 25.7 BP 110/68 Blood Pressure Location Lt brachial Position Sitting Pulse 78 Pulse Source Monitor Temp 98.5 F Temperature Source Temporal Artery Pulse Oximetry (%) 98 Oxygen Delivery Method room air Intake Visit Reasons: 2 M FU Chief Complaint: Center Customer Service Associate Required: No Accompanied by: Son Is patient in pain?: No Allergies Environmental Allergies: Uncoded Allergy (Verified 09/01/23 09:43) sneezing promethazine [From Phenergan] Allergy (Verified 09/01/23 09:43) Vomiting cetirizine [From Zyrtec] Adverse Reaction (Unknown, Verified 09/01/23 09:43) unknown fluticasone [From Flovent HFA] Adverse Reaction (Verified 09/01/23 09:43) palpitations guaifenesin Adverse Reaction (Verified 09/01/23 09:43) Vomiting Medications docusate sodium 100 mg capsule 100 mg PO BID 01/17/22 [History Confirmed 09/01/23] albuterol sulfate 90 mcg/actuation aerosol inhaler 2 puff inhalation Q6H PRN shortness of breath or wheezing 02/16/22 [History Confirmed 09/01/23] levothyroxine 75 mcg tablet 75 mcg PO DAILY #30 tabs 09/05/22 [Rx Confirmed 09/01/23] cholecalciferol (vitamin D3) 50 mcg (2,000 unit) tablet 50 mcg PO DAILY 11/28/22 [History Confirmed 09/01/23] folic acid 1 mg tablet 1 mg PO DAILY 11/28/22 [History Confirmed 09/01/23] topiramate 25 mg tablet 25 mg PO QHS 11/28/22 [History Confirmed 09/01/23] pantoprazole 40 mg tablet,delayed release 40 mg PO DAILY #14 tabs 03/06/23 [Rx Confirmed 09/01/23] lamotrigine 150 mg tablet 150 mg PO BID #60 tabs 05/04/23 [Rx Confirmed 09/01/23] buspirone 5 mg tablet 5 mg PO BID PRN anxiety 06/20/23 [History Confirmed 09/01/23] chlorpromazine 25 mg tablet 25 mg PO DAILY 06/20/23 [History Confirmed 09/01/23] oxybuty (more content not included)... Normal [facility] BMP WITHOUT GLUCOSEon 2023 Anion gap [Moles/Vol] 12 mmol/L 7 - 17 mmol/L [facility] Calcium [Mass/Vol] 9.1 mg/dL 8.6 - 10. 5 mg/dL [facility] Chloride [Moles/Vol] 106 mmol/L 98 - 10 8 mmol/L [facility] CO2 [Moles/Vol] 26 mmol/L 21 - 31 mmol/L [facility] Creatinine [Mass/Vol] 0.63 mg/dL 0.50 - 1.20 mg/dL [facility] eGFR, CKD-EPI, Female - PINF [facility] Comment on above: Reported eGFR is bas ed on the CKD-EPI 2020 equation using creatinine, age, and sex. Potassium [Moles/Vol] 4.2 mmol/L 3.5 - 5.0 mmol/L [facility] Sodium [Moles/Vol] 140 mmol/L 135 - 145 mmol/L [facility] Urea nitrogen [Mass/Vol] 13 mg/dL 7 - 25 mg/dL [facility] Urea nitrogen/Creatinine [Mass ratio] 21 mg/mg [facility] POCT URINE DIPSTICK NON-AUTO MATEDon 08-23-2023 Amorphous sediment LM Ql (Urine sed) [facility] Appearance (U) [facility] Bacteria LM Ql (Urine sed) [facility] Bilirubin Ql (U) Negative [facility] Casts LM.LPF (Urine sed) [#/Area] [facility] Color (U) [facility] Crystals LM Nom (Urine sed) [facility] Epithelial cells.squamous LM.HPF (Urine sed) [#/Area] [facility] Flow cytometry specialist review Vincent (Unsp spec) [Interp] [facility] Glucose Auto test strip (U) [Mass/Vol] Negative mg/dL [facility] Ketones [Mass/Vol] small mg/dL [facility] Leukocyte esterase Qn (U) [facility] Leukocyte esterase Test strip Ql (U) mod [facility] Microscopic observation Gram stain Nom (Bronch spec) [facility] Nitrite Ql (U) Negative [facility] pH (U) 6.5 [pH] 5 - 7 [facility] Protein Ql (U) 1+ mg/dL [facility] RBC LM.HPF (Urine sed) [#/Area] [facility] RBC Ql (U) Negative [facility] Specific gravity (U) [Rel density] 1.025 1.001 - 1.035 [facility] Transitional cells LM Ql (Urine sed) [facility] Urobilinogen Qn (U) Negative [facility] WBC LM.HPF (Urine sed) [#/Area] [facility] Coronary Angiography CTon Coronary Angiography CT [facility] Imaging Services [address] [place] [address] 07/21/23 1639 MR#: [id number] Acct: [id number] Name: ISIDRA ZALDIVAR Rep #: [id number] : 1985 37 From: Yong Fenton MD PCP: Dr. Olman Son, DO Status:REG CLI Y Location: CT CCTA w/Cont Coronary Arteries Date of Study:: 07/21/23 Abnormal stress test. Coronary Calcium Scoring: High-resolution Computed Tomographic imaging of the chest was performed on [07/21/23 ], with particular attention paid to the coronary arteries. Intravenous contrast agent was administered per protocol and images reconstructed and displayed. There is some misregistration artifact noted LEFT MAIN CORONARY ARTERY: This arises from the left coronary cusp and bifurcates into the left anterior descending artery and left circumflex artery [] LEFT ANTERIOR DESCENDING CORONARY ARTERY: Left anterior descending artery is a medium size vessel and courses around the apex of the left ventricle. No significant atherosclerotic plaquing is noted. [] LEFT CIRCUMFLEX CORONARY ARTERY: No significant atherosclerotic plaquing is noted in this vessel. [] RIGHT CORONARY ARTERY: Dominant right coronary artery with no significant atherosclerotic plaquing noted. Conclusion: CT coronary angiography demonstrating no significant obstruction noted. 07/21/23 1643 Date Yong Fenton MD Cosigner Signature (if applicable): Date CC: MANAGER MECHANICAL MAINTENANCE-C Geoffrey Hutton; Dr. Yong Fenton MD; Dr. Olman Son DO Signed Normal [facility] Limited Chest CT Cardiac Onl yon 07-21-[address] Cardiac Only [facility] Imaging Services [address] [facility] [place] [address] Cardiac Only MR#: [id number] Acct: [id number] Name: ISIDRA ZALDIVAR Rep #: [id number] : 1985 F 37 From: Sanjeev gaffney MD PCP: Dr. Olman Son DO Status: REG CLI Study: Limited Chest CT Cardiac Only Date of Exam: Exam# [id number] Ordering Dr: Geoffrey Hutton NP MANAGER MECHANICAL MAINTENANCE-C [id number] STUDY: CT CHEST WITH CONTRAST REASON FOR EXAM: Female, 37 years old. Abnormal stress. Cardiac over read examination. RADIATION DOSAGE (If Supplied By Facility): CTDIvol = ( 366.72 ) mGy, DLP = ( 1336.75 ) mGycm TECHNIQUE: Transaxial imaging was performed following intravenous administration of IV 60mL Isovue-370. Individualized dose optimization techniques were used for this CT. COMPARISON: No relevant priors. FINDINGS: CHEST 3 mm calcified granuloma in the posterior aspect of the right upper lobe abutting the right minor fissure as seen on axial image #27. There is no demonstrated pleural abnormality. Normal heart and pericardium. Normal mediastinum. Normal hilar regions. Normal unenhanced pulmonary arteries. Normal aorta arch and descending thoracic aorta. Normal osseous structures. There is no demonstrated abnormality of the visualized upper abdomen. CT/Limited Chest CT Cardiac Only IMPRESSION: Normal enhanced CT chest T abdomen examination. Electronically Signed: Sanjeev Phillips MD at 12:33 EDT , CC: KUSHAL Hutton; Dr. Olman Son DO Instrument Worker: Signed Normal [facility] 6 Minute Walk Teston 024 6 Minute Walk Test y [facility] Pulmonary Services/Neurology [address] [place] [address] MR#: [id number] Acct: [id number] Name: ISIDRA ZALDIVAR Rep #: [id number] : 1985 37 From: Chuy Ambrosio DO Referring Dr: Darrion Root MD Status: REG CLI Location: PSN Date: Sex: F C PSN 6 Minute Walk Test 6 Minute Walk Test 6 Minute Walk Test: 6 Minute Walk Test PSN:6-Minute Walk Test Start: 07/11/23 13:24 Freq: Status: Active Protocol: RESP.6MINW Document 07/11/23 13:10 [facility] (Rec: 07/11/23 13:29 [facility] Desktop) 6 Minute Walk Test Date Performed 07/11/23 Time Performed 13:10 Height 5 ft 7 in Weight: 150 lb Weight in Pounds 150.[address]: Dr Root Assistive device used: None Pre-test Oxygen Delivery Method Room Air Pulse Ox 98 Pulse Rate (60-100) 76 Dyspnea Denise Scale (0-10) 0 Exertion Denise Scale (6-20) 6 1st minute Oxygen Delivery Method Room Air Pulse Ox 98 Pulse Rate (60-100) 94 2nd minute Oxygen Delivery Method Room Air Pulse Ox 98 Pulse Rate (60-100) 92 3rd minute Oxygen Delivery Method Room Air Pulse Ox 98 Pulse Rate (60-100) 92 4th minute Oxygen Delivery Method Room Air Pulse Ox 98 Pulse Rate (60-100) 91 5th minute Oxygen Delivery Method Room Air Pulse Ox 98 Pulse Rate (60-100) 93 6th minute Oxygen Delivery Method Room Air Pulse Ox 98 Pulse Rate (60-100) 94 Dyspnea Denise Scale (0-10) 0.5 Exertion Denise Scale (6-20) 13 Post-test Oxygen Delivery Method Room Air Pulse Ox 98 Pulse Rate (60-100) 74 Full Laps Walked 19 Partial Lap, Number of Tiles Walked 0 Total Distance Walked (ft) 1121 Interpretation Interpretation: The patient ambulated 1121 feet over the course of 6 minutes beginning on room air without assistive devices. Pretesting oxygen saturation was noted to be 98% on room air. With ambulation, the micki oxygen saturation was 98%. There was no significant exertional oxygen desaturation. Recommendations Recommendations: There is no indication for the use of supplemental oxygen at this time. 07/13/23 0855 Date Chuy Ambrosio DO CC: Date Dictated: 07/13/23853 Date Transcribed: 07/13/23853 Instrument Worker: Dr. Chuy Ambrosio DO Signed Normal [facility] Pulmonary Visit Reporton Pulmonary Visit Report [facility] Pulmonary Medicine of [address] [place] [address] OFFICE VISIT Date of Service: 06/27/23 MR#: [id number] Acct: [id number] Name: ISIDRA ZALDIVAR Rep #: [id number] : 1985 Provider: Dr. Darrion Root MD Age/Sex: 37/F [place] [facility] Status: Signed Assessment and Plan Assessment and Plan (1) Shortness of breath: Orders: Orders Pulmonary Function Test (Comp) Today R06.02 - Shortness of breath Simple Pulmonary Exercise Test Today R06.02 - Shortness of breath NIOX Today R06.02 - Shortness of breath Plan Unclear etiology at this time. Patient is reporting a pleuritic type chest pain. Previous PFTs were within normal limits, but did use nitrogen washout which can be inaccurate for lung volumes. Patient's NIOX is slightly elevated, so asthma would be a consideration. Patient does have a protracted smoking history, so emphysematous changes could be leading to hyperinflation. Patient is too young for a screening low-dose CT scan. Could consider repeat NIOX in the spring when allergies are at a higher level. Will obtain a complete pulmonary function test for quantification clarification of lung function. Will also obtain a walking oximetry for evaluation of exertional hypoxemia. Will hold off on chest imaging or new medications at this time until further information is available. Obtain complete PFT and walking oximetry. Plan Details Follow Up: 2 Months ([facility]) HPI Shortness of breath Details: Patient is a 37-year-old female, currently under care of Dr. Son, who presents for evaluation secondary to dyspnea. Patient reports that she is never seen a digestion operator previously. However, patient has had worsening shortness of breath over the last 3 to 6 months. Patient states that she typically walks her son to school and has noted significant sharp left-sided chest pain associated with ambulation. Patient states she does have a cough intermittently associated with this pain. Patient states she did have a breathing test previously, but overall feels subjectively unchanged. Patient states that she is somewhat worried because she used to walk with her son without issues previously. Patient does state that she is to see a back end architect today to see if there is any concerns from that perspective. Patient is not reporting any seasonal variability, but does have seasonal allergies. Patient does not have a work history as she is currently on disability secondary to seizure and bipolar disorder. Patient denies any chest trauma. Patient denies any rash or new joint pain. Patient does report some weight loss, but believes this has stabilized. Patient does smoke approximately 10 cigarettes/day. Patient has no intentions of quitting at this time. Patient states this is necessary secondary to her psychiatric issues. Review of systems otherwise negative from a constitutional, HEENT, respiratory, cardiovascular, GI, genitourinary, musculoskeletal, skin, neurologic, psychiatric and hematologic system unless stated above. Documentation personally reviewed prior to the office visit 34 pages of documentation were reviewed prior to the office visit. Patient reportedly has had multiple evaluation secondary to dyspnea. Provided information did include laboratory work from October and March 2023. LFTs were within normal limits. Patient did have a slight anemia with a hemoglobin of 12.3, white blood cell count of 9.4 with 3.2% eosinophils. Bicarbonate was within normal limits and creatinine was noted to be 1.1. Patient also had a negative D-dimer. PCP documentation reports that the dyspnea has not been responsive to steroids, but chest imaging does show some early hyperinflation. Patient is on albuterol and Flonase. Patient did have a PFT in July 2022 that showed a normal spirometry with possible hyperinflation, but did use nitrogen washout. Patient reportedly has had some weight loss that was unintentional. GI workup has been negative thus far. Intake Vital Signs 05/04/23 12:45 06/27/23 05:42 Height 5 ft 7 in 5 ft 7 in Weight: 70.931 kg BMI 24.5 BP 117/68 Blood Pressure Location Rt brachial Position Sitting Respiration 18 Pulse 80 Pulse Source Monitor Temp 36.8 C Temperature Source Temporal Artery Pulse Oximetry (%) 99 Oxygen Delivery Method room air Intake Visit Reasons: Shortness of breath Chief Complaint: Accompanied by: Self Allergies Environmental Allergies: Uncoded Allergy (Verified 06/27/23 09:33) sneezing promethazine [From Phenergan] Allergy (Verified 06/27/23 09:33) Vomiting cetirizine [From Zyrtec] Adverse Reaction (Unknown, Verified 06/27/23 09:33) unknown fluticasone [From Flovent HFA] Adverse Reaction (Verified 06/27/23 09:33) palpitations guaifenesin Ad (more content not included)... Normal [facility] .Auto Diffon 03-15-2023 Basophil, Absolute 0.0 10 3/mcL Normal 0.0-0.2 [facility] ([place]) Comment on above: Performed By: #### M DW, BMP, ADIFF, MORPH, ANEU, GFR, CBC #### [address] [place], [place] [address] Basophils/100 WBC (Bld) 0.4 % Normal 0.0-2.5 [facility] ([place]) Comment on above: Performed By: #### M DW, BMP, ADIFF, MORPH, ANEU, GFR, CBC #### [address] [address] Eosinophil, Absolute 0.3 10 3/mcL Normal 0.0-0.4 [facility] ([place]) Comment on above: Performed By: #### M DW, BMP, ADIFF, MORPH, ANEU, GFR, CBC #### [address] [address] Eosinophils/100 WBC (Bld) 3.2 % Normal 0.0-7.0 [facility] ([place]) Comment on above: Performed By: #### M DW, BMP, ADIFF, MORPH, ANEU, GFR, CBC #### [address] [address] Lymphocyte, Absolute 3.5 10 3/mcL Normal 0.8-3.9 [facility] ([place]) Comment on above: Performed By: #### M DW, BMP, ADIFF, MORPH, ANEU, GFR, CBC #### [address] [address] Lymphocytes/100 WBC (Bld) 37.2 % Normal 10.0-50.0 [facility] ([place]) Comment on above: Performed By: #### M DW, BMP, ADIFF, MORPH, ANEU, GFR, CBC #### [address] [address] Monocyte, Absolute 0.6 10 3/mcL Normal 0.2-1.0 [facility] ([place]) Comment on above: Performed By: #### M DW, BMP, ADIFF, MORPH, ANEU, GFR, CBC #### [address] [address] Monocytes/100 WBC (Bld) 6.1 % Normal 1.7-13.0 [facility] ([place]) Comment on above: Performed By: #### M DW, BMP, ADIFF, MORPH, ANEU, GFR, CBC #### [address] [address] Neutrophils/100 WBC (Bld) 53.1 % Normal 37.0-80.0 [facility] ([place]) Comment on above: Performed By: #### M DW, BMP, ADIFF, MORPH, ANEU, GFR, CBC #### [address] [address] .GFRon 03-15-2023 GFR Non- 56 ml/min/1.73sqm Normal [facility] ([place]) Comment on above: Result Comment: GFR Population mean for , Non- Americans Ages 20-29 = 116 mL/min/1.73 sq.m. Ages 30-39 = 107 mL/min/1.73 sq.m. Ages 40-49 = 99 mL/min/1.73 sq.m. Ages 50-59 = 93 mL/min/1.73 sq.m. Ages 60-69 = 85 mL/min/1.73 sq.m. Ages 70+ = 75 mL/min/1.73 sq.m. Chronic Kidney Disease: Less than 60 mL/min/1.73 square meters End Stage Renal Disease: Less than 15 mL/min/1.73 square meters Performed By: #### M DW, BMP, ADIFF, MORPH, ANEU, GFR, CBC #### [address] [address] GFR 68 ml/min/1.73sqm Normal [facility] ([place]) Comment on above: Result Comment: GFR Population mean for , Non- Americans Ages 20-29 = 116 mL/min/1.73 sq.m. Ages 30-39 = 107 mL/min/1.73 sq.m. Ages 40-49 = 99 mL/min/1.73 sq.m. Ages 50-59 = 93 mL/min/1.73 sq.m. Ages 60-69 = 85 mL/min/1.73 sq.m. Ages 70+ = 75 mL/min/1.73 sq.m. Chronic Kidney Disease: Less than 60 mL/min/1.73 square meters End Stage Renal Disease: Less than 15 mL/min/1.73 square meters Performed By: #### M DW, BMP, ADIFF, MORPH, ANEU, GFR, CBC #### [address] [address] .MDWon 03-15-2023 Monocyte Distribution Width 17.01 Normal 0.00-20.00 [facility]) Comment on above: Result Comment: For ED adult patients suspected of sepsis, MDW<=20.0 does not rule out sepsis or risk of sepsis Performed By: #### M DW, BMP, ADIFF, MORPH, ANEU, GFR, CBC #### [address] [address] .Morphon 03-15-2023 Platelet Estimate Normal Normal [facility]) Comment on above: Performed By: #### M DW, BMP, ADIFF, MORPH, ANEU, GFR, CBC #### [place] [address] .NEUABSon 03-15-2023 Neutrophil, Absolute 5.0 10 3/mcL Normal 2.9-6.2 [facility]) Comment on above: Performed By: #### M DW, BMP, ADIFF, MORPH, ANEU, GFR, CBC #### [place] [address] BMPon 03-15-2023 BUN/Creatinine Ratio 8 ratio Normal 7-27 [facility]) Comment on above: Performed By: #### M DW, BMP, ADIFF, MORPH, ANEU, GFR, CBC #### [address] [address] Calcium [Mass/Vol] 8.6 mg/dL Normal 8.4-10.2 [facility]) Comment on above: Performed By: #### M DW, BMP, ADIFF, MORPH, ANEU, GFR, CBC #### [address] [address] Chloride [Moles/Vol] 106 mmol/L Normal 98-107 [facility]) Comment on above: Performed By: #### M DW, BMP, ADIFF, MORPH, ANEU, GFR, CBC #### [address] [address] CO2 [Moles/Vol] 24 mmol/L Normal 22-29 [facility]) Comment on above: Performed By: #### M DW, BMP, ADIFF, MORPH, ANEU, GFR, CBC #### [address] [address] Creatinine [Mass/Vol] 1.10 mg/dL High 0.55-1.02 [facility] ([place]) Comment on above: Performed By: #### M DW, BMP, ADIFF, MORPH, ANEU, GFR, CBC #### [address] [address] Electrolyte Balance 9.0 mEq/L Normal 4.0-15.0 [facility] ([place]) Comment on above: Performed By: #### M DW, BMP, ADIFF, MORPH, ANEU, GFR, CBC #### [address] [address] Glucose [Mass/Vol] 96 mg/dL Normal 70-105 [facility] ([place]) Comment on above: Performed By: #### M DW, BMP, ADIFF, MORPH, ANEU, GFR, CBC #### [address] [address] Potassium [Moles/Vol] 4.0 mmol/L Normal 3.5-5.1 [facility] ([place]) Comment on above: Performed By: #### M DW, BMP, ADIFF, MORPH, ANEU, GFR, CBC #### [address] [address] Sodium [Moles/Vol] 139 mmol/L Normal 136-145 [facility] ([place]) Comment on above: Performed By: #### M DW, BMP, ADIFF, MORPH, ANEU, GFR, CBC #### [address] [address] Urea nitrogen [Mass/Vol] 9 mg/dL Normal 7-18 [facility] ([place]) Comment on above: Performed By: #### M DW, BMP, ADIFF, MORPH, ANEU, GFR, CBC #### [address] [address] CBCon 03-15-2023 Erythrocyte distribution width (RBC) [Ratio] 13.8 % Normal 11.5-14.5 [facility] ([place]) Comment on above: Performed By: #### M DW, BMP, ADIFF, MORPH, ANEU, GFR, CBC #### [address] [address] Hematocrit (Bld) [Volume fraction] 36.3 % Low 37.0-47.0 [facility] ([place]) Comment on above: Performed By: #### M DW, BMP, ADIFF, MORPH, ANEU, GFR, CBC #### [place] [address] Hgb 12.3 G/dL Normal 12.0-16.0 [facility] ([place]) Comment on above: Performed By: #### M DW, BMP, ADIFF, MORPH, ANEU, GFR, CBC #### [place] [address] MCH (RBC) [Entitic mass] 29.8 pg Normal 27.0-31.2 [facility] ([place]) Comment on above: Performed By: #### M DW, BMP, ADIFF, MORPH, ANEU, GFR, CBC #### [place] [address] MCHC 33.8 G/dL Normal 33.0-37.0 [facility] ([place]) Comment on above: Performed By: #### M DW, BMP, ADIFF, MORPH, ANEU, GFR, CBC #### [place] [id number] MCV (RBC) [Entitic vol] 88.2 fL Normal 80.0-94.0 [facility] ([place]) Comment on above: Performed By: #### M DW, BMP, ADIFF, MORPH, ANEU, GFR, CBC #### [place] [address] Platelet 159 10 3/mcL Normal 130-400 [facility] ([place]) Comment on above: Performed By: #### M DW, BMP, ADIFF, MORPH, ANEU, GFR, CBC #### [place] [address] Platelet mean volume (Bld) [Entitic vol] 10.9 fL High 7.4-10.4 [facility] ([place]) Comment on above: Performed By: #### M DW, BMP, ADIFF, MORPH, ANEU, GFR, CBC #### Sebastian [address] [address] RBC 4.12 10 6/mcL Low 4.20-5.40 [facility] ([place]) Comment on above: Performed By: #### M DW, BMP, ADIFF, MORPH, ANEU, GFR, CBC #### Sebastian [address] [address] WBC 9.4 10 3/mcL Normal 4.6-10.8 [facility] ([place]) Comment on above: Performed By: #### M DW, BMP, ADIFF, MORPH, ANEU, GFR, CBC #### Sebastian [address] [address] DIMERon 03-15-2023 D-Dimer <200 Normal 0-230 [facility] ([place]) Comment on above: Result Comment: DDN: Results reported in D-DU ng/mL. Negative for D-dimer. DVT/PE is highly unlikely. Note: False negative results may be seen in patients on anticoagulant therapy. The result of the D-Dimer test should be evaluated in the context of all the clinical and laboratory data available. In those instances where the laboratory result does not agree with the clinical evaluation, additional tests should be performed accordingly. If the D-Dimer result is used to exclude DVT or PE, the recommended cutoff value is less than 230 ng/mL. The D-Dimer result should not be used alone to rule in DVT/PE, but should be used in conjunction with a clinical pretest probability (PTP)assessment model to exclude venous thromboembolism (VTE) in outpatients suspected of deep venous thrombosis (DVT) and pulmonary embolism (PE). Performed By: #### D PITER ####Sebastian [address] [address] LABORATORYOrdered By: SYSTEM SYSTEM on 03-15-2023 Basophil, Absolute 0.0 103/mcL Invalid Interpretation Code 0.0 - 0.2 10^3/mcL AO Workflow SS Basophils/100 WBC (Bld) 0.4 % Invalid Interpretation Code 0.0 - 2.5 % AO Workflow SS Calcium [Mass/Vol] 8.6 mg/dL Invalid Interpretation Code 8.4 - 10.2 mg/dL AO ADM SS Chloride [Moles/Vol] 106 mmol/L Invalid Interpretation Code 98 - 107 mmol/L AO ADM SS CO2 [Moles/Vol] 24 mmol/L Invalid Interpretation Code 22 - 29 mmol/L AO ADM SS Creatinine [Mass/Vol] 1.10 mg/dL Invalid Interpretation Code 0.55 - 1.02 mg/dL AO ADM SS Electrolyte Balance 9.0 mEq/L Invalid Interpretation Code 4.0 - 15.0 mEq/L AO ADM SS Eosinophil, Absolute 0.3 103/mcL Invalid Interpretation Code 0.0 - 0.4 10^3/mcL AO Workflow SS Eosinophils/100 WBC (Bld) 3.2 % Invalid Interpretation Code 0.0 - 7.0 % AO Workflow SS Erythrocyte distribution width (RBC) [Ratio] 13.8 % Invalid Interpretation Code 11.5 - 14.5 % AO Workflow SS GFR/1.73 sq M.predicted among blacks MDRD (S/P/Bld) [Vol rate/Area] 68 ml/min/1.73sqm Invalid Interpretation Code AO Chemistry S Comment on above: Interpretive Data: GFR Population mean for , Non- Americans Ages 20-29 = 116 mL/min/1.73 sq.m. Ages 30-39 = 107 mL/min/1.73 sq.m. Ages 40-49 = 99 mL/min/1.73 sq.m. Ages 50-59 = 93 mL/min/1.73 sq.m. Ages 60-69 = 85 mL/min/1.73 sq.m. Ages 70+ = 75 mL/min/1.73 sq.m. Chronic Kidney Disease: Less than 60 mL/min/1.73 square meters End Stage Renal Disease: Less than 15 mL/min/1.73 square meters GFR/1.73 sq M.predicted among non-blacks MDRD (S/P/Bld) [Vol rate/Area] 56 ml/min/1.73sqm Invalid Interpretation Code AO Chemistry S Comment on above: Interpretive Data: GFR Population mean for , Non- Americans Ages 20-29 = 116 mL/min/1.73 sq.m. Ages 30-39 = 107 mL/min/1.73 sq.m. Ages 40-49 = 99 mL/min/1.73 sq.m. Ages 50-59 = 93 mL/min/1.73 sq.m. Ages 60-69 = 85 mL/min/1.73 sq.m. Ages 70+ = 75 mL/min/1.73 sq.m. Chronic Kidney Disease: Less than 60 mL/min/1.73 square meters End Stage Renal Disease: Less than 15 mL/min/1.73 square meters Glucose [Mass/Vol] 96 mg/dL Invalid Interpretation Code 70 - 105 mg/dL AO ADM SS Hematocrit (Bld) [Volume fraction] 36.3 % Invalid Interpretation Code 37.0 - 47.0 % AO Workflow SS Hemoglobin (Bld) [Mass/Vol] 12.3 G/dL Invalid Interpretation Code 12.0 - 16.0 G/dL AO Workflow SS Lymphocyte, Absolute 3.5 103/mcL Invalid Interpretation Code 0.8 - 3.9 10^3/mcL AO Workflow SS Lymphocytes/100 WBC (Bld) 37.2 % Invalid Interpretation Code 10.0 - 50.0 % AO Workflow SS MCH (RBC) [Entitic mass] 29.8 pg Invalid Interpretation Code 27.0 - 31.2 pg AO Workflow SS MCHC 33.8 G/dL Invalid Interpretation Code 33.0 - 37.0 G/dL AO Workflow SS MCV (RBC) [Entitic vol] 88.2 fL Invalid Interpretation Code 80.0 - 94.0 fL AO Workflow SS Monocyte distribution width Auto (Bld) [Entitic vol] 17.01 1 Invalid Interpretation Code 0.00 - 20.00 AO Workflow SS Comment on above: Result Comment: For ED adult patients suspected of sepsis, MDW<=20.0 does not rule out sepsis or risk of sepsis Monocyte, Absolute 0.6 103/mcL Invalid Interpretation Code 0.2 - 1.0 10^3/mcL AO Workflow SS Monocytes/100 WBC (Bld) 6.1 % Invalid Interpretation Code 1.7 - 13.0 % AO Workflow SS Neutrophil, Absolute 5.0 103/mcL Invalid Interpretation Code 2.9 - 6.2 10^3/mcL AO Workflow SS Neutrophils/100 WBC (Bld) 53.1 % Invalid Interpretation Code 37.0 - 80.0 % AO Workflow SS Platelet mean volume (Bld) [Entitic vol] 10.9 fL Invalid Interpretation Code 7.4 - 10.4 fL AO Workflow SS Platelets (Bld) [#/Vol] 159 103/mcL Invalid Interpretation Code 130 - 400 10^3/mcL AO Workflow SS Potassium [Moles/Vol] 4.0 mmol/L Invalid Interpretation Code 3.5 - 5.1 mmol/L AO ADM SS RBC (Bld) [#/Vol] 4.12 106/mcL Invalid Interpretation Code 4.20 - 5.40 10^6/mcL AO Workflow SS Sodium [Moles/Vol] 139 mmol/L Invalid Interpretation Code 136 - 145 mmol/L AO ADM SS Urea nitrogen [Mass/Vol] 9 mg/dL Invalid Interpretation Code 7 - 18 mg/dL AO ADM SS Urea nitrogen/Creatinine [Mass ratio] 8 ratio Invalid Interpretation Code 7 - 27 ratio AO ADM SS WBC (Bld) [#/Vol] 9.4 103/mcL Invalid Interpretation Code 4.6 - 10.8 10^3/mcL AO Workflow SS LABORATORYOrdered By: Swapnil Jones on 03-15-2023 Fibrin D-dimer DDU (PPP) [Mass/Vol] ng/mL D-DU Invalid Interpretation Code 0 - 230 ng/mL D-DU AO [facility] SS Comment on above: Result Comment: DDN: Results reported in D-DU ng/mL. Negative for D-dimer. DVT/PE is highly unlikely. Note: False negative results may be seen in patients on anticoagulant therapy. Interpretive Data: T he result of the D-Dimer test should be evaluated in the context of all the clinical and laboratory data available. In those instances where the laboratory result does not agree with the clinical evaluation, additional tests should be performed accordingly. If the D-Dimer result is used to exclude DVT or PE, the recommended cutoff value is less than 230 ng/mL. The D-Dimer result should not be used alone to rule in DVT/PE, but should be used in conjunction with a clinical pretest probability (PTP)assessment model to exclude venous thromboembolism (VTE) in outpatients suspected of deep venous thrombosis (DVT) and pulmonary embolism (PE). Platelet Estimate Normal (03/15/23 11:17 PM) Invalid Interpretation Code AO Hematology S XR CHEST 2 VIEWSon 3 XR CHEST 2 VIEWS ORIGINAL EXAMINATION: TWO XRAY VIEWS OF THE CHEST03/15/2023 1:36 pm COMPARISON: None HISTORY: ORDERING SYSTEM PROVIDED HISTORY: Reason for Exam: cough with sputum FINDINGS: The heart size is normal.Symmetric nipple shadow artifacts noted. The lungs are hyperinflated. There is no pulmonary consolidation. No pneumothorax or pleural effusion. No aggressive osseous lesions identified. IMPRESSION: Mild hyperinflation. No focal consolidation Interpreted by: Kenneth Rodriguez MD Preliminary Report By: Kenneth Rodriguez MD Electronically signed By Kenneth Rodriguez MD Dictated Date: 03/15/2023 1:38:25 PM Prelim Date: 03/15/2023 1:38:59 PM Sign Date: 03/15/2023 1:38:59 PM Ordering Provider: OLMAN SON [facility]) US SOFT TISSUE Apoorva 2022 US SOFT TISSUE MASS ORIGINAL EXAMINATION: SOFT TISSUE ULTRASOUND 02/21/2023 4:16 pm COMPARISON: Prior ultrasound dated 10/21/2022. HISTORY: ORDERING SYSTEM PROVIDED HISTORY: Reason for Exam: follow up lymphadenopathy FINDINGS: Ultrasonographic evaluation of the bilateral inguinal regions demonstrate normal cervical chain lymph nodes. None of these lymph nodes are enlarged at this time and the lymph nodes demonstrate normal fatty kuldeep. No cortical thickening or enlargement is seen as compared to the prior exam. IMPRESSION: Normal bilateral inguinal chain lymph nodes. Interpreted by: Ruben Sheppard MD Preliminary Report By: Ruben Sheppard MD Electronically signed By Ruben Sheppard MD Dictated Date: 02/23/2023 4:39:59 PM Prelim Date: 02/23/2023 4:45:08 PM Sign Date: 02/23/2023 4:45:08 PM Ordering Provider: OLMAN SON [facility]) BASIC METABOLIC PANELon 10- Anion gap [Moles/Vol] 10 mmol/L 7 - 17 mmol/L [facility] Calcium [Mass/Vol] 9.0 mg/dL 8.6 - 10. 5 mg/dL [facility] Chloride [Moles/Vol] 111 mmol/L High 98 - 10 8 mmol/L [facility] CO2 [Moles/Vol] 26 mmol/L 21 - 31 mmol/L [facility] Creatinine [Mass/Vol] 0.66 mg/dL 0.50 - 1.20 mg/dL [facility], [facility]-EPI, Female - PINF [facility] Comment on above: Reported eGFR is bas ed on the CKD-EPI 2020 equation using creatinine, age, and sex. Glucose [Mass/Vol] 83 mg/dL 70 - 99 mg/dL [facility] Interpretation and review of laboratory results Abnormal [facility] Osmolality Calc [Osmolality] 297 [facility] Potassium [Moles/Vol] 4.4 mmol/L 3.5 - 5.0 mmol/L [facility] Sodium [Moles/Vol] 143 mmol/L 135 - 145 mmol/L [facility] Urea nitrogen [Mass/Vol] 11 mg/dL 7 - 25 mg/dL [facility] Urea nitrogen/Creatinine [Mass ratio] 17 mg/mg [facility] POCT URINE DIPSTICK NON-AUTO MATEDon 02-22-2023 Amorphous sediment LM Ql (Urine sed) [facility] Appearance (U) [facility] Bacteria LM Ql (Urine sed) [facility] Bilirubin Ql (U) small [facility] Casts LM.LPF (Urine sed) [#/Area] [facility] Color (U) [facility] Crystals LM Nom (Urine sed) [facility] Epithelial cells.squamous LM.HPF (Urine sed) [#/Area] [facility] Flow cytometry specialist review Vincent (Unsp spec) [Interp] [facility] Glucose Auto test strip (U) [Mass/Vol] Negative mg/dL [facility] Ketones [Mass/Vol] Negative mg/dL [facility] Leukocyte esterase Qn (U) [facility] Leukocyte esterase Test strip Ql (U) Negative [facility] Microscopic observation Gram stain Nom (Bronch spec) [facility] Nitrite Ql (U) Negative [facility] pH (U) 6 [pH] 5 - 7 [facility] Protein Ql (U) 1+ mg/dL [facility] RBC LM.HPF (Urine sed) [#/Area] [facility] RBC Ql (U) Negative [facility] Specific gravity (U) [Rel density] 1.030 1.001 - 1.035 [facility] Transitional cells LM Ql (Urine sed) [facility] Urobilinogen Qn (U) 1 [facility] WBC LM.HPF (Urine sed) [#/Area] [facility] B12on 02-10-2023 Cobalamin (Vitamin B12) [Mass/Vol] 585 pg/mL Normal 211-911 [facility] ([place]) Comment on above: Performed By: #### Tori 12, FOL ####[place] [address]#### VIDH ####Sebastian [address] [place] [address] FOLon 02-10-2023 Folate 16.35 ng/mL Normal 5.38-24.00 [facility] ([place]) Comment on above: Performed By: #### Tori Cuello, FOL ####[place] [address]#### VIDH ####[facility] [place] [address] VIDHon 02-10-2023 Vit. D 25-Hydroxy 37.1 ng/mL Normal [facility] ([place]) Comment on above: Result Comment: Inte rpretive Values Based on Total 25(OH) Vitamin D: Deficient <20 ng/mL Insufficient 20 - <30 ng/mL Sufficient 30-100 ng/mL Performed By: #### Tori 12, FOL ####[place] [address]#### VIDH ####[facility] [place] [address] Basophil percentageOrdered B y: Shimon Sterlnig on 01-23-2023 Bilirubin [Mass/Vol] 0.40 mg/dL 0.20-1.00 [facility] Comment on above: For patients on eltr ombopag therapy, use of Dimension [place] TBIL is not recommended. Chloride [Moles/Vol] 109 mmol/L 98-107 [facility] Glucose [Mass/Vol] 97 mg/dL 74-106 [facility] Potassium [Moles/Vol] 4.1 mmol/L 3.5-5.1 [facility] Protein [Mass/Vol] 7.4 g/dL 6.4-8.2 [facility] Sodium [Moles/Vol] 141 mmol/L 136-145 [facility] Laboratory - Chemistry and C hemistry - challengeOrdered By: Shimon Sterling on 01-23-2023 ALP [Catalytic activity/Vol] 84 U/L 45-117 [facility] ALT [Catalytic activity/Vol] 22 U/L 13-56 [facility] CO2 [Moles/Vol] 29.0 mmol/L 21.0-32.0 [facility] Globulin (S) [Mass/Vol] 3.3 g/dL 2.2-4.2 [facility] Lipase [Catalytic activity/Vol] 27 U/L 13-75 [facility] Comment on above: Please note:LIPASE r evised reference range effective 22. New Lipase methodology. Expected to produce lower values than the previous assay method. NEW Reference Range: 13 - 75 U/L Urea nitrogen/Creatinine [Mass ratio] 15.6 mg/mg 10-20 [facility] No Panel InformationOrdered By: Shimon Sterling on 01-23-2023 Estimated GFR (MDRD) Amer 120 mL/min >60 [facility] Comment on above: GFR Calc Estimated GFR (MDRD) Non-Af Amer 99 mL/min >60 [facility] Comment on above: Non- GFR Calc Serum or plasma albumin simba urement (mass/volume)Ordered By: Shimon Sterling on 01-23-2023 Albumin [Mass/Vol] 4.1 g/dL 3.2-5.0 [facility] Serum or plasma albumin/glob ulin mass ratioOrdered By: Shimon Sterling on 01-23-2023 Albumin/Globulin [Mass ratio] 1.2 {ratio} 0.9-2.4 [facility] Serum or plasma calcium simba urement (mass/volume)Ordered By: Shimon Sterling on 01-23-2023 Calcium [Mass/Vol] 9.0 mg/dL 8.5-10.1 [facility] Serum or plasma creatinine m easurement (mass/volume)Ordered By: Shimon Sterling on 01-23-2023 Creatinine [Mass/Vol] 0.71 mg/dL 0.55-1.02 [facility] Comment on above: The validity of the calculated GFR & GFRAA in patients over 70 years has not been determined. Clinical correlation is essential. Serum or plasma urea nitroge n measurement (mass/volume)Ordered By: Shimon Sterling on 01-23-2023 Urea nitrogen [Mass/Vol] 11 mg/dL 11-22 [facility] Thin prep Papanicolaou smear with manual screeningOrdered By: Shimon Sterling on 01-23-2023 Thin prep Papanicolaou smear with manual screening 13 U/L 15- [facility] Thin prep Papanicolaou smear with manual screening 3 5-15 [facility] Laboratory - Chemistry and C hemistry - challengeOrdered By: Marshall Arnold on 12-29-2022 HCG ( test) Ql (U) Negative [facility] Comment on above: Very dilute urine sp ecimens, as indicated by a low specificgravity, may not contain personal banking representative levels of hCG. If is still suspected, a first morning urinespecimen should be collected 48 hours later and tested. LABORATORYOrdered By: SYSTEM SYSTEM on 10-29-2022 25-hydroxyvitamin D3 [Mass/Vol] 29.5 ng/mL Invalid Interpretation Code AO ADM SS Albumin BCP dye [Mass/Vol] 3.9 G/dL Invalid Interpretation Code 3.5 - 5.0 G/dL AO ADM SS Albumin/Globulin [Mass ratio] 1.3 {ratio} Invalid Interpretation Code 1.1 - 2.5 ratio AO ADM SS ALP [Catalytic activity/Vol] 92 U/L Invalid Interpretation Code 40 - 135 U/L AO ADM SS ALT With P-5'-P [Catalytic activity/Vol] 16 U/L Invalid Interpretation Code 14 - 59 U/L AO ADM SS AST With P-5'-P [Catalytic activity/Vol] 10 U/L Invalid Interpretation Code 10 - 40 U/L AO ADM SS Bilirubin [Mass/Vol] 0.2 mg/dL Invalid Interpretation Code 0.2 - 1.0 mg/dL AO ADM SS Calcium [Mass/Vol] 9.3 mg/dL Invalid Interpretation Code 8.4 - 10.2 mg/dL AO ADM SS Chloride [Moles/Vol] 104 mmol/L Invalid Interpretation Code 98 - 107 mmol/L AO ADM SS CO2 [Moles/Vol] 26 mmol/L Invalid Interpretation Code 22 - 29 mmol/L AO ADM SS Creatinine [Mass/Vol] 0.69 mg/dL Invalid Interpretation Code 0.55 - 1.02 mg/dL AO ADM SS Electrolyte Balance 9.0 mEq/L Invalid Interpretation Code 4.0 - 15.0 mEq/L AO ADM SS Folate [Mass/Vol] 4.46 ng/mL Invalid Interpretation Code 5.38 - 24.00 ng/mL AH ADM SS GFR/1.73 sq M.predicted among blacks MDRD (S/P/Bld) [Vol rate/Area] 117 ml/min/1.73sqm Invalid Interpretation Code AO Chemistry S GFR/1.73 sq M.predicted among non-blacks MDRD (S/P/Bld) [Vol rate/Area] 97 ml/min/1.73sqm Invalid Interpretation Code AO Chemistry S Globulin 3.0 G/dL Invalid Interpretation Code AO ADM SS Glucose [Mass/Vol] 73 mg/dL Invalid Interpretation Code 70 - 105 mg/dL AO ADM SS Potassium [Moles/Vol] 4.3 mmol/L Invalid Interpretation Code 3.5 - 5.1 mmol/L AO ADM SS Protein [Mass/Vol] 6.9 G/dL Invalid Interpretation Code 6.4 - 8.2 G/dL AO ADM SS Sodium [Moles/Vol] 139 mmol/L Invalid Interpretation Code 136 - 145 mmol/L AO ADM SS Urea nitrogen [Mass/Vol] 18 mg/dL Invalid Interpretation Code 7 - 18 mg/dL AO ADM SS Urea nitrogen/Creatinine [Mass ratio] 26 ratio Invalid Interpretation Code 7 - 27 ratio AO ADM SS LABORATORYOrdered By: Caitlin Vasquez on 10-29-2022 Basophil, Absolute 0.0 103/mcL Invalid Interpretation Code 0.0 - 0.2 10^3/mcL AO Workflow SS Basophils/100 WBC (Bld) 0.3 % Invalid Interpretation Code 0.0 - 2.5 % AO Workflow SS Cholesterol [Mass/Vol] 149 mg/dL Invalid Interpretation Code 0 - 200 mg/dL AO ADM SS Cholesterol in HDL [Mass/Vol] 44 mg/dL Invalid Interpretation Code 40 - 60 mg/dL AO ADM SS Cholesterol in LDL [Mass/Vol] 96 mg/dL Invalid Interpretation Code 0 - 130 mg/dL AO ADM SS Eosinophil, Absolute 0.3 103/mcL Invalid Interpretation Code 0.0 - 0.4 10^3/mcL AO Workflow SS Eosinophils/100 WBC (Bld) 3.3 % Invalid Interpretation Code 0.0 - 7.0 % AO Workflow SS Erythrocyte distribution width (RBC) [Ratio] 13.7 % Invalid Interpretation Code 11.5 - 14.5 % AO Workflow SS Hematocrit (Bld) [Volume fraction] 40.2 % Invalid Interpretation Code 37.0 - 47.0 % AO Workflow SS Hemoglobin (Bld) [Mass/Vol] 13.5 G/dL Invalid Interpretation Code 12.0 - 16.0 G/dL AO Workflow SS Lymphocyte, Absolute 2.4 103/mcL Invalid Interpretation Code 0.8 - 3.9 10^3/mcL AO Workflow SS Lymphocytes/100 WBC (Bld) 23.8 % Invalid Interpretation Code 10.0 - 50.0 % AO Workflow SS MCH (RBC) [Entitic mass] 29.6 pg Invalid Interpretation Code 27.0 - 31.2 pg AO Workflow SS MCHC 33.5 G/dL Invalid Interpretation Code 33.0 - 37.0 G/dL AO Workflow SS MCV (RBC) [Entitic vol] 88.3 fL Invalid Interpretation Code 80.0 - 94.0 fL AO Workflow SS Monocyte, Absolute 0.6 103/mcL Invalid Interpretation Code 0.2 - 1.0 10^3/mcL AO Workflow SS Monocytes/100 WBC (Bld) 6.2 % Invalid Interpretation Code 1.7 - 13.0 % AO Workflow SS Neutrophil, Absolute 6.6 103/mcL Invalid Interpretation Code 2.9 - 6.2 10^3/mcL AO Workflow SS Neutrophils/100 WBC (Bld) 66.4 % Invalid Interpretation Code 37.0 - 80.0 % AO Workflow SS Platelet mean volume (Bld) [Entitic vol] 11.1 fL Invalid Interpretation Code 7.4 - 10.4 fL AO Workflow SS Platelets (Bld) [#/Vol] 152 103/mcL Invalid Interpretation Code 130 - 400 10^3/mcL AO Workflow SS RBC (Bld) [#/Vol] 4.55 106/mcL Invalid Interpretation Code 4.20 - 5.40 10^6/mcL AO Workflow SS Triglyceride [Mass/Vol] 45 mg/dL Invalid Interpretation Code 0 - 150 mg/dL AO ADM SS WBC (Bld) [#/Vol] 10.0 103/mcL Invalid Interpretation Code 4.6 - 10.8 10^3/mcL AO Workflow SS BASIC METABOLIC PANELon Anion gap [Moles/Vol] 12 mmol/L 7 - 17 mmol/L [facility] Calcium [Mass/Vol] 9.3 mg/dL 8.6 - 10. 5 mg/dL [facility] Chloride [Moles/Vol] 107 mmol/L 98 - 10 8 mmol/L [facility] CO2 [Moles/Vol] 25 mmol/L 21 - 31 mmol/L [facility] Creatinine [Mass/Vol] 0.67 mg/dL 0.50 - 1.20 mg/dL [facility] GFR/1.73 sq M.predicted CKD-EPI (S/P/Bld) [Vol rate/Area] - [facility] Comment on above: Reported eGFR is bas ed on the CKD-EPI 2020 equation using creatinine, age, and sex. Glucose [Mass/Vol] 85 mg/dL 70 - 99 mg/dL [facility] Osmolality Calc [Osmolality] 292 [facility] Potassium [Moles/Vol] 4.0 mmol/L 3.5 - 5.0 mmol/L [facility] Sodium [Moles/Vol] 140 mmol/L 135 - 145 mmol/L [facility] Urea nitrogen [Mass/Vol] 14 mg/dL 7 - 25 mg/dL [facility] Urea nitrogen/Creatinine [Mass ratio] 21 mg/mg [facility] POCT URINE DIPSTICK AUTOMATE Don 08-10-2022 Amorphous sediment LM Ql (Urine sed) [facility] Appearance (U) [facility] Bacteria LM Ql (Urine sed) [facility] Bilirubin Ql (U) n [facility] Casts LM.LPF (Urine sed) [#/Area] [facility] Color (U) [facility] Crystals LM Nom (Urine sed) [facility] Epithelial cells.squamous LM.HPF (Urine sed) [#/Area] [facility] Flow cytometry specialist review Vincent (Unsp spec) [Interp] [facility] Glucose Auto test strip (U) [Mass/Vol] n mg/dL [facility] Ketones [Mass/Vol] n mg/dL [facility] Leukocyte esterase Qn (U) [facility] Leukocyte esterase Test strip Ql (U) n [facility] Microscopic observation Gram stain Nom (Bronch spec) [facility] Nitrite Ql (U) n [facility] pH (U) 6.5 [pH] 5 - 7 [facility] Protein Ql (U) n mg/dL [facility] RBC LM.HPF (Urine sed) [#/Area] [facility] RBC Ql (U) n [facility] Specific gravity (U) [Rel density] 1.015 1.001 - 1.035 [facility] Transitional cells LM Ql (Urine sed) [facility] Urobilinogen Qn (U) n [facility] WBC LM.HPF (Urine sed) [#/Area] [facility] US FEMALE PELVIS TRANSVAGon 08-01-2022 [facility] Laboratory - Chemistry and C hemistry - challengeOrdered By: Dr. Mccabe on 07-08-2022 Free T4 [Mass/Vol] 1.23 ng/dL 0.76-1.46 [facility] No Panel InformationOrdered By: Dr. Mccabe on 07-08-2022 Thyroid Stimulating Hormone (TSH) 1.53 uIU/mL 0.358-3.74 [facility] CBC panel Auto (Bld)on 07-07 Erythrocyte distribution width (RBC) [Ratio] 13.2 % 11.5 - 15.0 % [facility] Hematocrit (Bld) [Volume fraction] 39.6 % 36.0 - 46.0 % [facility] Hemoglobin (Bld) [Mass/Vol] 13.2 g/dL 11.5 - 15.5 g/dL [facility] MCH (RBC) [Entitic mass] 30.2 pg 26. 0 - 34.0 pg [facility] MCHC (RBC) [Mass/Vol] 33.3 g/dL 30.5 - 36.0 g/dL [facility] MCV (RBC) [Entitic vol] 90.6 fL 80.0 - 100.0 fL [facility] Nucleated RBC (Bld) [#/Vol] <0.01 k/uL [facility] Platelet mean volume (Bld) [Entitic vol] 12.2 fL 9.0 - 12.7 fL [facility] Platelets (Bld) [#/Vol] 196 10*3/uL 150 - 400 k/uL [facility] RBC (Bld) [#/Vol] 4.37 10*6/uL 3.90 - 5.20 m/uL [facility] WBC (Bld) [#/Vol] 8.85 10*3/uL 3.70 - 11.00 k/uL [facility] Basophil percentageOrdered B y: Dr. Patterson on 06-20-2022 Ammonia (P) [Moles/Vol] 11.0 umol/L 11-32 [facility] Laboratory - Chemistry and C hemistry - challengeOrdered By: Dr. Patterson on 06-20-2022 Cobalamin (Vitamin B12) [Mass/Vol] 310 pg/mL 211-911 [facility] Laboratory - Drug toxicology Ordered By: Dr. Patterson on 06-20-2022 Amphetamines Ql (U) Negative <1000 ng/mL [facility] Benzodiazepines Ql (U) Negative < 200 ng/mL [facility] Cannabinoids Screen Ql (U) Negative < 50 ng/mL [facility] Cocaine Ql (U) Negative < 300 ng/mL [facility] Opiates Ql (U) Negative < 300 ng/mL [facility] No Panel InformationOrdered By: Dr. Patterson on 06-20-2022 MDMA (Ecstasy) Screen Negative < 500 ng/mL [facility] Urine Barbiturates Screen Negative < 200 ng/mL [facility] Urine Drug Screen Comment [facility] Comment on above: CONFIRMATORY TESTING FOR ALL POSITIVE URINE DRUG SCREENRESULTS WILL ONLY BE SENT OUT UPON PHYSICIAN ORDER. VISTA Urine Drug Screen methods provide only preliminaryanalytical test results. A more specific alternate chemicalmethod must be used in order to obtain a confirmedanalytical result. Gas chromatography/mass spectrometery(GC/MS) is the preferred confirmatory method. Clinicalconsideration and professional judgement should be appliedto any drug of abuse test result, particularly whenpreliminary positive results are used. URINE TCA TESTING MUST BE ORDERED SEPARATELY. USE TESTMNEMONIC: [facility] Urine Methadone Screen Negative < 300 ng/mL [facility] Whole Blood Vitamin B1 Level 146.9 nmol/L 66.5-200.0 [facility] Serum or plasma calcitriol m easurement (mass/volume)Ordered By: Dr. Patterson on 06-20-2022 1,25-dihydroxyvitamin D3 [Mass/Vol] 48.0 pg/mL 24.8-81.5 [facility] Comment on above: Performed at: [facility] [place] [id number] Director: Fantasma uCrtis MD, Phone: [phone] Serum or plasma folate measu rement (mass/volume)Ordered By: Dr. Patterson on 06-20-2022 Folate [Mass/Vol] 15.80 ng/mL 3.1-55.4 [facility] Serum or plasma lamotrigine measurement (mass/volume)Ordered By: Dr. Patterson on 06-20-2022 lamoTRIgine [Mass/Vol] 4.9 ug/mL 2.0-20.0 [facility] Comment on above: Detection Limit = 1. 0Performed at: [employer] [facility] [address] [id number] Director: Fantasma Curtis MD, Phone: [phone] Urine phencyclidine (PCP) de tectionOrdered By: Dr. Patterson on 06-20-2022 Phencyclidine Ql (U) Negative < 25 ng/mL [facility] Absolute lymphocyte countOrd ered By: Dr. Gallardo on 06-10-2022 Lymphocytes Auto (Unsp spec) [#/Vol] 2.74 10*3/uL 0.83-4.51 [facility] Basophil percentageOrdered B y: Dr. Gallardo on 06-10-2022 Basophils/100 WBC (Bld) 0.5 % 0-1 [facility] Chloride [Moles/Vol] 107 mmol/L 98-107 [facility] Eosinophils/100 WBC (Bld) 2.5 % 0-5 [facility] Glucose [Mass/Vol] 86 mg/dL 74-106 [facility] Neutrophils (Bld) [#/Vol] 5.3 10*3/uL 2.0-7.7 [facility] Neutrophils/100 WBC (Bld) 59.7 % 47-70 [facility] Potassium [Moles/Vol] 4.0 mmol/L 3.5-5.1 [facility] Sodium [Moles/Vol] 142 mmol/L 136-145 [facility] WBC (Bld) [#/Vol] 8.9 10*3/uL 4.4-11.0 [facility] Blood erythrocytes count (nu mber/volume)Ordered By: Dr. Gallardo on 06-10-2022 RBC (Bld) [#/Vol] 4.38 10*6/uL 4.2-5.4 [facility] Blood hemoglobin measurement (mass/volume)Ordered By: Dr. Gallardo on 06-10-2022 Hemoglobin (Bld) [Mass/Vol] 13.0 g/dL 12.0-15.0 [facility] Blood lymphocytes/100 leukoc ytesOrdered By: Dr. Gallardo on 06-10-2022 Lymphocytes/100 WBC (Bld) 30.9 % 19-41 [facility] Blood monocytes/100 leukocyt esOrdered By: Dr. Gallardo on 06-10-2022 Monocytes/100 WBC (Bld) 5.6 % 0-10 [facility] Blood platelet mean volumeOr dered By: Dr. Gallardo on 06-10-2022 Platelet mean volume (Bld) [Entitic vol] 12.3 fL 6.2-12.0 [facility] Determination of erythrocyte mean corpuscular volume (MCV)Ordered By: Dr. Gallardo on 06-10-2022 MCV (RBC) [Entitic vol] 92.2 fL 81-99 [facility] Hematocrit Auto (Bld) [Volum e fraction]Ordered By: Dr. Gallardo on 06-10-2022 Hematocrit (Bld) [Volume fraction] 40.4 % 37-47 [facility] Laboratory - Chemistry and C hemistry - challengeOrdered By: Dr. Gallardo on 06-10-2022 CO2 [Moles/Vol] 27.0 mmol/L 21.0-32.0 [facility] Urea nitrogen/Creatinine [Mass ratio] 18.5 mg/mg 10-20 [facility] Laboratory - Hematology and Cell countsOrdered By: Dr. Gallardo on 06-10-2022 Erythrocyte distribution width (RBC) [Entitic vol] 44.1 fL 35.1-43.9 [facility] Erythrocyte distribution width (RBC) [Ratio] 12.9 % 11.6-14.6 [facility] Immature granulocytes/100 WBC (Bld) 0.800 % 0.0-0.9 [facility] Comment on above: IG% - Immature Granu locytes (promyelocytes, myelocytes and metamyelocytes) > 1% indicates that a LEFT SHIFT is Present. MCH (RBC) [Entitic mass] 29.7 pg 27.0-32.0 [facility] Nucleated RBC/100 WBC (Bld) [Ratio] 0 % 0-5 [facility] MCHC Auto (RBC) [Mass/Vol]Or dered By: Dr. Gallardo on 06-10-2022 MCHC (RBC) [Mass/Vol] 32.2 g/dL 32-36 [facility] No Panel InformationOrdered By: Dr. Gallardo on 06-10-2022 Troponin I High Sensitivity 5 pg/mL 3.0-54.0 [facility] Comment on above: Please Note: New [place] t Units and Gender Specific Reference Ranges. For more information see Policy Stat Procedure [place] High Sensitivity Troponin (TNIH) and attachments. Estimated Creatinine Clearance Calc 127.26 ml/min [facility] Estimated GFR (MDRD) Amer 147 mL/min >60 [facility] Comment on above: GFR Calc Estimated GFR (MDRD) Non-Af Amer 122 mL/min >60 [facility] Comment on above: Non- GFR Calc Platelets bldOrdered By: Dr. Gallardo on 06-10-2022 Platelets (Bld) [#/Vol] 189 10*3/uL 150-450 [facility] Serum or plasma calcium simba urement (mass/volume)Ordered By: Dr. Gallardo on 06-10-2022 Calcium [Mass/Vol] 8.9 mg/dL 8.5-10.1 [facility] Serum or plasma creatinine m easurement (mass/volume)Ordered By: Dr. Gallardo on 06-10-2022 Creatinine [Mass/Vol] 0.60 mg/dL 0.55-1.02 [facility] Comment on above: The validity of the calculated GFR & GFRAA in patients over 70 years has not been determined. Clinical correlation is essential. Serum or plasma urea nitroge n measurement (mass/volume)Ordered By: Dr. Gallardo on 06-10-2022 Urea nitrogen [Mass/Vol] 11 mg/dL 7-18 [facility] Thin prep Papanicolaou smear with manual screeningOrdered By: Dr. Gallardo on 06-10-2022 Thin prep Papanicolaou smear with manual screening 8 5-15 [facility] No Panel InformationOrdered By: Franko Hernandez on 05-10-2022 Giardia Antigen (GALO) [facility] Ova and parasitesOrdered By: Franko Hernandez on 05-10-2022 Ova and parasites identified LM Nom (Unsp spec) [facility] CHEM 7 (LYTES,BUN,CREA,GLUC) on 04-27-2022 Anion gap [Moles/Vol] 10 mmol/L 7 - 17 mmol/L [facility] Chloride [Moles/Vol] 108 mmol/L 98 - 10 8 mmol/L [facility] CO2 [Moles/Vol] 26 mmol/L 21 - 31 mmol/L [facility] Creatinine [Mass/Vol] 0.60 mg/dL 0.50 - 1.20 mg/dL [facility] GFR/1.73 sq M.predicted CKD-EPI (S/P/Bld) [Vol rate/Area] - [facility] Comment on above: Reported eGFR is bas ed on the CKD-EPI 2020 equation using creatinine, age, and sex. Glucose [Mass/Vol] 86 mg/dL 70 - 99 mg/dL [facility] Osmolality Calc [Osmolality] 291 [facility] Potassium [Moles/Vol] 4.2 mmol/L 3.5 - 5.0 mmol/L [facility] Sodium [Moles/Vol] 140 mmol/L 135 - 145 mmol/L [facility] Urea nitrogen [Mass/Vol] 8 mg/dL 7 - 25 mg/dL [facility] Urea nitrogen/Creatinine [Mass ratio] 13 mg/mg [facility] No Panel InformationOrdered By: Franko Hernandez on 04-25-2022 Stool Calprotectin <16 ug/g 0-120 [facility] Comment on above: Concentration Interp retation Follow-Up<16 - 50 ug/g Normal None>50 -120 ug/g Borderline Re-evaluate in 4-6 weeks >120 ug/g Abnormal Repeat as clinically indicatedPerformed at: [facility] [place] [id number] Director: Tremayne Nunez PhD, Phone: [phone] at: [employer] [address] [id number] Director: Fantasma Curtis MD, Phone: [phone] Stool Neutral Fats Normal . [facility] Comment on above: Normal (<60 Droplets /HPF) Stool Pancreatic Elastase 271 >200 [facility] Comment on above: Result Units: ug Kylie st./g Severe Pancreatic Insufficiency: <100 Moderate Pancreatic Insufficiency: 100 - 200 Normal: >200Performed at: [facility] [id number] Director: Fantasma Curtis MD, Phone: [phone] Qualitative fecal fat or lip idsOrdered By: Franko Hernandez on 04-25-2022 Fat Ql (Stl) Increased . [facility] Comment on above: Normal (<100 Droplet s/HPF) Absolute lymphocyte countOrd ered By: Franko Hernandez on 04-22-2022 Lymphocytes Auto (Unsp spec) [#/Vol] 3.48 10*3/uL 0.83-4.51 [facility] Atypical perinuclear antineu trophil cytoplasmic antibodies measurementOrdered By: Franko Hernandez on 04-22-2022 Neutrophil cytoplasmic Ab.perinuclear.atypical IF (S) [Titer] <1:20 titer Neg:<1:20 [facility] Comment on above: The atypical pANCA p attern has been observed in asignificant percentage of patients with ulcerative colitis,primary sclerosing cholangitis and autoimmune hepatitis. Basophil percentageOrdered B y: Franko Hernandez on 04-22-2022 Basophils/100 WBC (Bld) 0.4 % 0-1 [facility] Bilirubin [Mass/Vol] 0.40 mg/dL 0.20-1.00 [facility] Comment on above: For patients on eltr ombopag therapy, use of Dimension [place] TBIL is not recommended. Chloride [Moles/Vol] 107 mmol/L 98-107 [facility] Eosinophils/100 WBC (Bld) 3.2 % 0-5 [facility] Glucose [Mass/Vol] 83 mg/dL 74-106 [facility] Neutrophils (Bld) [#/Vol] 4.7 10*3/uL 2.0-7.7 [facility] Neutrophils/100 WBC (Bld) 52.0 % 47-70 [facility] Potassium [Moles/Vol] 3.8 mmol/L 3.5-5.1 [facility] Protein [Mass/Vol] 7.9 g/dL 6.4-8.2 [facility] Sodium [Moles/Vol] 139 mmol/L 136-145 [facility] WBC (Bld) [#/Vol] 9.0 10*3/uL 4.4-11.0 [facility] Blood erythrocytes count (nu mber/volume)Ordered By: Franko Hernandez on 04-22-2022 RBC (Bld) [#/Vol] 4.69 10*6/uL 4.2-5.4 [facility] Blood hemoglobin measurement (mass/volume)Ordered By: Franko Hernandez on 04-22-2022 Hemoglobin (Bld) [Mass/Vol] 14.2 g/dL 12.0-15.0 [facility] Blood lymphocytes/100 leukoc ytesOrdered By: Franko Hernandez on 04-22-2022 Lymphocytes/100 WBC (Bld) 38.8 % 19-41 [facility] Blood monocytes/100 leukocyt esOrdered By: Franko Hernandez on 04-22-2022 Monocytes/100 WBC (Bld) 4.9 % 0-10 [facility] Blood platelet mean volumeOr dered By: Franko Hernandez on 04-22-2022 Platelet mean volume (Bld) [Entitic vol] 13.0 fL 6.2-12.0 [facility] Determination of erythrocyte mean corpuscular volume (MCV)Ordered By: Franko Hernandez on 04-22-2022 MCV (RBC) [Entitic vol] 90.6 fL 81-99 [facility] Erythrocyte sedimentation ra teOrdered By: Franko Hernandez on 04-22-2022 ESR (Bld) [Velocity] 7 mm/h 0-30 [facility] Hematocrit Auto (Bld) [Volum e fraction]Ordered By: Franko Hernandez on 04-22-2022 Hematocrit (Bld) [Volume fraction] 42.5 % 37-47 [facility] Laboratory - Chemistry and C hemistry - challengeOrdered By: Franko Hernandez on 04-22-2022 ALP [Catalytic activity/Vol] 98 U/L 45-117 [facility] ALT [Catalytic activity/Vol] 17 U/L 13-56 [facility] CO2 [Moles/Vol] 28.0 mmol/L 21.0-32.0 [facility] Free T4 [Mass/Vol] 1.28 ng/dL 0.76-1.46 [facility] Globulin (S) [Mass/Vol] 3.7 g/dL 2.2-4.2 [facility] Urea nitrogen/Creatinine [Mass ratio] 10.5 mg/mg 10-20 [facility] Laboratory - Hematology and Cell countsOrdered By: Franko Hernandez on 04-22-2022 Erythrocyte distribution width (RBC) [Entitic vol] 42.8 fL 35.1-43.9 [facility] Erythrocyte distribution width (RBC) [Ratio] 13.0 % 11.6-14.6 [facility] Immature granulocytes/100 WBC (Bld) 0.700 % 0.0-0.9 [facility] Comment on above: IG% - Immature Granu locytes (promyelocytes, myelocytes and metamyelocytes) > 1% indicates that a LEFT SHIFT is Present. MCH (RBC) [Entitic mass] 30.3 pg 27.0-32.0 [facility] Nucleated RBC/100 WBC (Bld) [Ratio] 0 % 0-5 [facility] MCHC Auto (RBC) [Mass/Vol]Or dered By: Franko Hernandez on 04-22-2022 MCHC (RBC) [Mass/Vol] 33.4 g/dL 32-36 [facility] No Panel InformationOrdered By: Franko Hernandez on 04-22-2022 CA 125 Antigen 44.7 U/mL 0.0-38.1 [facility] Comment on above: [employer] El ectrochemiluminescence Immunoassay(ECLIA)Values obtained with different assay methods or kits cannotbe used interchangeably. Results cannot be interpreted asabsolute evidence of the presence or absence of malignantdisease. CA 19-9 Antigen 19 U/mL 0-35 [facility] Comment on above: [employer] El ectrochemiluminescence Immunoassay(ECLIA)Values obtained with different assay methods or kits cannotbe used interchangeably. Results cannot be interpreted asabsolute evidence of the presence or absence of malignantdisease. Endomysial IgA Antibody Negative Negative [facility] Estimated GFR (MDRD) Amer 129 mL/min >60 [facility] Comment on above: GFR Calc Estimated GFR (MDRD) Non-Af Amer 107 mL/min >60 [facility] Comment on above: Non- GFR Calc Free Triiodothyronine (T3) pg/dL 2.8 pg/mL 2.18-3.98 [facility] Immunoglobulin E 209 IU/mL 6-495 [facility] Thyroid Stimulating Hormone (TSH) 2.08 uIU/mL 0.358-3.74 [facility] Platelets bldOrdered By: Amari Hernandez on 04-22-2022 Platelets (Bld) [#/Vol] 201 10*3/uL 150-450 [facility] Serum classic neutrophil cyt oplasmic antibody assay (units/volume)Ordered By: Franko Hernandez on 04-22-2022 Neutrophil cytoplasmic Ab.classic Qn (S) <1:20 titer Neg:<1:20 [facility] Serum or plasma C reactive p rotein measurement (mass/volume)Ordered By: Franko Hernandez on 04-22-2022 CRP [Mass/Vol] mg/L 0.0-3.0 [facility] Comment on above: C-Reactive Protein ( CRP) provides useful information for thediagnosis, therapy and monitoring of inflammatory processesand associated diseases. For the evaluation of Relative Riskfor Cardiovascular Disease, a High Sensitivity CRP (HSCRP)should be ordered. Serum or plasma IgA measurem ent (mass/volume)Ordered By: Franko Hernandez on 04-22-2022 IgA [Mass/Vol] 377 mg/dL 87-352 [facility] Serum or plasma IgG measurem ent (mass/volume)Ordered By: Franko Hernandez on 04-22-2022 IgG [Mass/Vol] 1015 mg/dL 586-1602 [facility] Serum or plasma IgM measurem ent (mass/volume)Ordered By: Franko Hernandez on 04-22-2022 IgM [Mass/Vol] 170 mg/dL 26-217 [facility] Comment on above: Performed at: [address] [id number] Director: Tremayne Nunez PhD, Phone: [phone] at: [facility] [employer] [facility] [address] [id number] Director: Fantasma Curtis MD, Phone: [phone] Serum or plasma albumin simba urement (mass/volume)Ordered By: Franko Hernandez on 04-22-2022 Albumin [Mass/Vol] 4.2 g/dL 3.2-5.0 [facility] Serum or plasma albumin/glob ulin mass ratioOrdered By: Franko Hernandez on 04-22-2022 Albumin/Globulin [Mass ratio] 1.1 {ratio} 0.9-2.4 [facility] Serum or plasma calcium simba urement (mass/volume)Ordered By: Franko Hernandez on 04-22-2022 Calcium [Mass/Vol] 9.2 mg/dL 8.5-10.1 [facility] Serum or plasma carcinoembry onic antigen measurement (mass/volume)Ordered By: Franko Hernandez on 04-22-2022 Carcinoembryonic Ag [Mass/Vol] 4.1 ng/mL 0.0-4.7 [facility] Comment on above: Nonsmokers <3.9 Smok ers <5.6[employer] Electrochemiluminescence Immunoassay(ECLIA)Values obtained with different assay methods or kitscannot be used interchangeably. Results cannot beinterpreted as absolute evidence of the presence orabsence of malignant disease. Serum or plasma creatinine m easurement (mass/volume)Ordered By: Franko Hernandez on 04-22-2022 Creatinine [Mass/Vol] 0.67 mg/dL 0.55-1.02 [facility] Comment on above: The validity of the calculated GFR & GFRAA in patients over 70 years has not been determined. Clinical correlation is essential. Serum or plasma urea nitroge n measurement (mass/volume)Ordered By: Franko Hernandez on 04-22-2022 Urea nitrogen [Mass/Vol] 7 mg/dL 7-18 [facility] Serum perinuclear neutrophil cytoplasmic antibody titer by immunofluorescenceOrdered By: Franko Hernandez on 04-22-2022 Neutrophil cytoplasmic Ab.perinuclear IF (S) [Titer] <1:20 titer Neg:<1:20 [facility] Comment on above: The presence of posi tive fluorescence exhibiting P-ANCA orC-ANCA patterns alone is not specific for the diagnosis ofWegener's Granulomatosis (WG) or microscopic polyangiitis.Decisions about treatment should not be based solely onANCA IFA results. The [employer] ANCA Group Consensusrecommends follow up testing of positive sera with both ID-3 and MPO-ANCA enzyme immunoassays. As many as 5% serumsamples are positive only by EIA. Ref. AM J Clin [id number];111:507-513. Serum tissue transglutaminas e IgA antibody assay (units/volume)Ordered By: Franko Hernandez on 04-22-2022 tTG IgA Qn (S) <2 U/mL 0-3 [facility] Comment on above: Negative 0 - 3 Weak Positive 4 - 10 Positive >10 Tissue Transglutaminase (tTG) has been identified as the endomysial antigen. Studies have demonstr- ated that endomysial IgA antibodies have over 99% specificity for gluten sensitive enteropathy. Thin prep Papanicolaou smear with manual screeningOrdered By: Franko Hernandez on 04-22-2022 Thin prep Papanicolaou smear with manual screening 10 U/L 15-37 [facility] Thin prep Papanicolaou smear with manual screening 4 5-15 [facility] Thin prep Papanicolaou smear with manual screening 120 U/L 84-246 [facility] Basophil percentageOrdered B y: Dr. Mccabe on 04-12-2022 Bilirubin [Mass/Vol] 0.40 mg/dL 0.20-1.00 [facility] Comment on above: For patients on eltr ombopag therapy, use of Dimension [place] TBIL is not recommended. Chloride [Moles/Vol] 106 mmol/L 98-107 [facility] Glucose [Mass/Vol] 86 mg/dL 74-106 [facility] Potassium [Moles/Vol] 4.1 mmol/L 3.5-5.1 [facility] Protein [Mass/Vol] 7.9 g/dL 6.4-8.2 [facility] Sodium [Moles/Vol] 139 mmol/L 136-145 [facility] Laboratory - Chemistry and C hemistry - challengeOrdered By: Dr. Mccabe on 04-12-2022 ALP [Catalytic activity/Vol] 102 U/L 45-117 [facility] ALT [Catalytic activity/Vol] 19 U/L 13-56 [facility] CO2 [Moles/Vol] 27.0 mmol/L 21.0-32.0 [facility] Globulin (S) [Mass/Vol] 3.8 g/dL 2.2-4.2 [facility] Urea nitrogen/Creatinine [Mass ratio] 13.2 mg/mg 10-20 [facility] No Panel InformationOrdered By: Dr. Mccabe on 04-12-2022 Estimated GFR (MDRD) Amer 126 mL/min >60 [facility] Comment on above: GFR Calc Estimated GFR (MDRD) Non-Af Amer 104 mL/min >60 [facility] Comment on above: Non- GFR Calc Serum or plasma albumin simba urement (mass/volume)Ordered By: Dr. Mccabe on 04-12-2022 Albumin [Mass/Vol] 4.1 g/dL 3.2-5.0 [facility] Serum or plasma albumin/glob ulin mass ratioOrdered By: Dr. Mccabe on 04-12-2022 Albumin/Globulin [Mass ratio] 1.1 {ratio} 0.9-2.4 [facility] Serum or plasma calcium simba urement (mass/volume)Ordered By: Dr. Mccabe on 04-12-2022 Calcium [Mass/Vol] 9.1 mg/dL 8.5-10.1 [facility] Serum or plasma cortisol cayla surement (mass/volume)Ordered By: Dr. Mccabe on 04-12-2022 Cortisol [Mass/Vol] 8.30 ug/dL 3.44-22.45 [facility] Comment on above: Adult (AM) 5.27 - 22 .45 ug/dL Adult (PM) 3.44 - 16.76 ug/dLPlease note revised CORTISOL reference range effective 2019. Serum or plasma creatinine m easurement (mass/volume)Ordered By: Dr. Mccabe on 04-12-2022 Creatinine [Mass/Vol] 0.68 mg/dL 0.55-1.02 [facility] Comment on above: The validity of the calculated GFR & GFRAA in patients over 70 years has not been determined. Clinical correlation is essential. Serum or plasma urea nitroge n measurement (mass/volume)Ordered By: Dr. Mccabe on 04-12-2022 Urea nitrogen [Mass/Vol] 9 mg/dL 7-18 [facility] Thin prep Papanicolaou smear with manual screeningOrdered By: Dr. Mccabe on 04-12-2022 Thin prep Papanicolaou smear with manual screening 8 U/L 15-37 [facility] Thin prep Papanicolaou smear with manual screening 6 5-15 [facility] US MESENTERIC ARTERY CMPLT V LABon 03-03-2022 [facility] US VENOUS INCOMPETENCY DEON V LABon 03-03-2022 [facility] LABORATORYOrdered By: SYSTEM SYSTEM on 01-19-2022 Thyroglobulin Ab IA Qn 55 unit/mL Invalid Interpretation Code 15 - 60 unit/mL AH ADM SS TPO Ab IA Qn unit/mL Invalid Interpretation Code 0 - 60 unit/mL AH ADM SS LABORATORYOrdered By: Trupti Cabrales on 01-19-2022 TSH Qn 2.72 m[IU]/L Invalid Interpretation Code 0.36 - 3.74 mcIU/mL AO ADM SS LABORATORYOrdered By: Dilcia Morel on 12-31-2021 Appearance (U) Slightly Cloudy *ABN* (12/31/21 10:59 AM) Invalid Interpretation Code Clear AO Auto Urine SS Bacteria LM.HPF (Urine sed) [#/Area] Trace /HPF Invalid Interpretation Code AO Auto Urine SS Bilirubin Ql (U) Negative (12/31/21 10:59 AM) Invalid Interpretation Code Negative AO Auto Urine SS Calcium [Mass/Vol] 8.9 mg/dL Invalid Interpretation Code 8.4 - 10.2 mg/dL AO ADM SS Chloride [Moles/Vol] 104 mmol/L Invalid Interpretation Code 98 - 107 mmol/L AO ADM SS CO2 [Moles/Vol] 27 mmol/L Invalid Interpretation Code 22 - 29 mmol/L AO ADM SS Color (U) Dark yellow Invalid Interpretation Code AO Auto Urine SS Creatinine [Mass/Vol] 0.71 mg/dL Invalid Interpretation Code 0.55 - 1.02 mg/dL AO ADM SS Electrolyte Balance 7.0 mEq/L Invalid Interpretation Code 4.0 - 15.0 mEq/L AO ADM SS Glucose [Mass/Vol] 83 mg/dL Invalid Interpretation Code 70 - 105 mg/dL AO ADM SS Glucose Test strip (U) [Mass/Vol] Negative Invalid Interpretation Code Negativemg /dL AO Auto Urine SS Hemoglobin Auto test strip (U) [Mass/Vol] Negative (12/31/21 10:59 AM) Invalid Interpretation Code Negative AO Auto Urine SS Ketones Ql (U) Negative Invalid Interpretation Code Negativemg /dL AO Auto Urine SS Potassium [Moles/Vol] 4.6 mmol/L Invalid Interpretation Code 3.5 - 5.1 mmol/L AO ADM SS Sodium [Moles/Vol] 138 mmol/L Invalid Interpretation Code 136 - 145 mmol/L AO ADM SS UA Leuk Est Negative (12/31/21 10:59 AM) Invalid Interpretation Code Negative AO Auto Urine SS UA Nitrite Negative (12/31/21 10:59 AM) Invalid Interpretation Code Negative AO Auto Urine SS UA pH 6.0 (12/31/21 10:59 AM) Invalid Interpretation Code 5.0 - 8.0 AO Auto Urine SS UA Protein Negative Invalid Interpretation Code Negativemg /dL AO Auto Urine SS UA RBC 0-5 /HPF Invalid Interpretation Code None Seen/HPF AO Auto Urine SS UA Spec Grav 1.025 (12/31/21 10:59 AM) Invalid Interpretation Code 1.015-1.02 5 AO Auto Urine SS UA Specimen Type Not Given (12/31/21 10:59 AM) Invalid Interpretation Code AO Auto Urine SS UA Squam Epithelial 0-5 /HPF Invalid Interpretation Code None Seen/HPF AO Auto Urine SS UA Urobilinogen 0.2 E.U./dL Invalid Interpretation Code 0.2-1.0E.U ./dL AO Auto Urine SS Urea nitrogen [Mass/Vol] 14 mg/dL Invalid Interpretation Code 7 - 18 mg/dL AO ADM SS Urea nitrogen/Creatinine [Mass ratio] 20 ratio Invalid Interpretation Code 7 - 27 ratio AO ADM SS WBC LM.HPF (Urine sed) [#/Area] 0-5 /HPF Invalid Interpretation Code None Seen/HPF AO Auto Urine SS LABORATORYOrdered By: SYSTEM SYSTEM on 12-31-2021 GFR 114 ml/min/1.73sqm Invalid Interpretation Code AO Chemistry S GFR Non- 94 ml/min/1.73sqm Inval id Interpretation Code AO Chemistry S LABORATORYOrdered By: Dilcia Morel on 12-28-2021 Albumin BCP dye [Mass/Vol] 4.0 G/dL Invalid Interpretation Code 3.5 - 5.0 G/dL AO ADM SS Albumin/Globulin [Mass ratio] 1.2 {ratio} Invalid Interpretation Code 1.1 - 2.5 ratio AO ADM SS ALP [Catalytic activity/Vol] 102 U/L Invalid Interpretation Code 40 - 135 U/L AO ADM SS ALT With P-5'-P [Catalytic activity/Vol] 18 U/L Invalid Interpretation Code 14 - 59 U/L AO ADM SS AST With P-5'-P [Catalytic activity/Vol] 12 U/L Invalid Interpretation Code 10 - 40 U/L AO ADM SS Basophil, Absolute 0.1 103/mcL Invalid Interpretation Code 0.0 - 0.2 10^3/mcL AO Workflow SS Basophils/100 WBC (Bld) 0.5 % Invalid Interpretation Code 0.0 - 2.5 % AO Workflow SS Bilirubin [Mass/Vol] 0.3 mg/dL Invalid Interpretation Code 0.2 - 1.0 mg/dL AO ADM SS Calcium [Mass/Vol] 9.1 mg/dL Invalid Interpretation Code 8.4 - 10.2 mg/dL AO ADM SS Chloride [Moles/Vol] 104 mmol/L Invalid Interpretation Code 98 - 107 mmol/L AO ADM SS CO2 [Moles/Vol] 29 mmol/L Invalid Interpretation Code 22 - 29 mmol/L AO ADM SS Creatinine [Mass/Vol] 0.63 mg/dL Invalid Interpretation Code 0.55 - 1.02 mg/dL AO ADM SS Electrolyte Balance 7.0 mEq/L Invalid Interpretation Code 4.0 - 15.0 mEq/L AO ADM SS Eosinophil, Absolute 0.3 103/mcL Invalid Interpretation Code 0.0 - 0.4 10^3/mcL AO Workflow SS Eosinophils/100 WBC (Bld) 3.1 % Invalid Interpretation Code 0.0 - 7.0 % AO Workflow SS Erythrocyte distribution width (RBC) [Ratio] 13.7 % Invalid Interpretation Code 11.5 - 14.5 % AO Workflow SS Globulin 3.3 G/dL Invalid Interpretation Code AO ADM SS Glucose [Mass/Vol] 90 mg/dL Invalid Interpretation Code 70 - 105 mg/dL AO ADM SS Hematocrit (Bld) [Volume fraction] 40.7 % Invalid Interpretation Code 37.0 - 47.0 % AO Workflow SS Hemoglobin (Bld) [Mass/Vol] 13.8 G/dL Invalid Interpretation Code 12.0 - 16.0 G/dL AO Workflow SS Iron [Mass/Vol] 56 ug/dL Invalid Interpretation Code 50 - 170 mcg/dL AO ADM SS Lymphocyte, Absolute 3.3 103/mcL Invalid Interpretation Code 0.8 - 3.9 10^3/mcL AO Workflow SS Lymphocytes/100 WBC (Bld) 31.8 % Invalid Interpretation Code 10.0 - 50.0 % AO Workflow SS MCH (RBC) [Entitic mass] 30.2 pg Invalid Interpretation Code 27.0 - 31.2 pg AO Workflow SS MCHC 34.0 G/dL Invalid Interpretation Code 33.0 - 37.0 G/dL AO Workflow SS MCV (RBC) [Entitic vol] 88.7 fL Invalid Interpretation Code 80.0 - 94.0 fL AO Workflow SS Monocyte, Absolute 0.5 103/mcL Invalid Interpretation Code 0.2 - 1.0 10^3/mcL AO Workflow SS Monocytes/100 WBC (Bld) 5.2 % Invalid Interpretation Code 1.7 - 13.0 % AO Workflow SS Neutrophil, Absolute 6.1 103/mcL Invalid Interpretation Code 2.9 - 6.2 10^3/mcL AO Workflow SS Neutrophils/100 WBC (Bld) 59.4 % Invalid Interpretation Code 37.0 - 80.0 % AO Workflow SS Platelet mean volume (Bld) [Entitic vol] 11.5 fL Invalid Interpretation Code 7.4 - 10.4 fL AO Workflow SS Platelets (Bld) [#/Vol] 172 103/mcL Invalid Interpretation Code 130 - 400 10^3/mcL AO Workflow SS Potassium [Moles/Vol] 4.8 mmol/L Invalid Interpretation Code 3.5 - 5.1 mmol/L AO ADM SS Protein [Mass/Vol] 7.3 G/dL Invalid Interpretation Code 6.4 - 8.2 G/dL AO ADM SS RBC (Bld) [#/Vol] 4.59 106/mcL Invalid Interpretation Code 4.20 - 5.40 10^6/mcL AO Workflow SS Sodium [Moles/Vol] 140 mmol/L Invalid Interpretation Code 136 - 145 mmol/L AO ADM SS Urea nitrogen [Mass/Vol] 8 mg/dL Invalid Interpretation Code 7 - 18 mg/dL AO ADM SS Urea nitrogen/Creatinine [Mass ratio] 13 ratio Invalid Interpretation Code 7 - 27 ratio AO ADM SS WBC 10.3 103/mcL Invalid Interpretation Code 4.6 - 10.8 10^3/mcL AO Workflow SS LABORATORYOrdered By: SYSTEM SYSTEM on 12-28-2021 Folate [Mass/Vol] 12.54 ng/mL Invalid Interpretation Code 5.38 - 24.00 ng/mL AH ADM SS GFR 130 ml/min/1.73sqm Invalid Interpretation Code AO Chemistry S GFR Non- 108 ml/min/1.73sqm Inva lid Interpretation Code AO Chemistry S HCG QUAL UR B/Oon 12-23-2021 status Negative neg - pos [facility] Quality Check Yes [facility] LABORATORYOrdered By: Mike Cervantes on 12-15-2021 Appearance (U) Clear (12/15/21 4:10 PM) Invalid Interpretation Code Clear AO Auto Urine SS Bilirubin Ql (U) Negative (12/15/21 4:10 PM) Invalid Interpretation Code Negative AO Auto Urine SS Color (U) Yellow (12/15/21 4:10 PM) Invalid Interpretation Code AO Auto Urine SS Glucose Test strip (U) [Mass/Vol] Negative Invalid Interpretation Code Negativemg /dL AO Auto Urine SS HCG ( test) Ql Negative (12/15/21 4:10 PM) Invalid Interpretation Code AO Manual Urine SS Hemoglobin Auto test strip (U) [Mass/Vol] Negative (12/15/21 4:10 PM) Invalid Interpretation Code Negative AO Auto Urine SS Ketones Ql (U) Negative Invalid Interpretation Code Negativemg /dL AO Auto Urine SS test (u) int Not detected Invalid Interpretation Code AO Manual Urine SS UA Leuk Est Negative (12/15/21 4:10 PM) Invalid Interpretation Code Negative AO Auto Urine SS UA Nitrite Negative (12/15/21 4:10 PM) Invalid Interpretation Code Negative AO Auto Urine SS UA pH 5.5 (12/15/21 4:10 PM) Invalid Interpretation Code 5.0 - 8.0 AO Auto Urine SS UA Protein Negative Invalid Interpretation Code Negativemg /dL AO Auto Urine SS UA Spec Grav >=1.030 *ABN* (12/15/21 4:10 PM) Invalid Interpretation Code 1.015-1.02 5 AO Auto Urine SS UA Specimen Type Clean Catch (12/15/21 4:10 PM) Invalid Interpretation Code AO Auto Urine SS UA Urobilinogen 0.2 E.U./dL Invalid Interpretation Code 0.2-1.0E.U ./dL AO Auto Urine SS BASIC METABOLIC PANELon 04-2 Anion gap [Moles/Vol] 11 mmol/L 7 - 17 mmol/L [facility] Calcium [Mass/Vol] 9.6 mg/dL 8.6 - 10. 5 mg/dL [facility] Chloride [Moles/Vol] 105 mmol/L 98 - 10 8 mmol/L [facility] CO2 [Moles/Vol] 28 mmol/L 21 - 31 mmol/L [facility] Creatinine [Mass/Vol] 0.72 mg/dL 0.50 - 1.20 mg/dL [facility] GFR/1.73 sq M.predicted CKD-EPI (S/P/Bld) [Vol rate/Area] >90 >=60 mL/min/1.7 3m2 [facility] Comment on above: Reported eGFR is bas ed on the CKD-EPI 2020 equation using creatinine, age, and sex. Glucose [Mass/Vol] 90 mg/dL 70 - 99 mg/dL [facility] Osmolality Calc [Osmolality] 290 [facility] Potassium [Moles/Vol] 4.0 mmol/L 3.5 - 5.0 mmol/L [facility] Sodium [Moles/Vol] 140 mmol/L 135 - 145 mmol/L [facility] Urea nitrogen [Mass/Vol] 8 mg/dL 7 - 25 mg/dL [facility] Urea nitrogen/Creatinine [Mass ratio] 11 mg/mg [facility] HCG ( test) Ql (U)o n 09-03-2021 HCG.beta subunit [Moles/Vol] Negative [facility] ANGIO CHESTon 08-28-2021 ANGIO CHEST *FINAL Date of Service: 08/28/2021 17:06 Adm #: [id number] Reading Dr:DAYA ROQUE Signoff : DAYA ROQUE PROCEDURE: ANGIO CHEST - T 3081 REASON FOR EXAM: chest pain, sob RESULT: ANGIO CHEST: 08/28/2021 5:06 PM. CLINICAL INDICATION: chest pain, sob . COMPARISON: None.. TECHNIQUE: CT angiography (non-coronary) of the chest was performed with Intravenous contrast material along with 3D (maximum intensity projection - MIP) image post processing and coronal reformatted images. 100 ml Omnipaque 350 was injected intravenously. PATIENT RADIATION EXPOSURE DATA: CTDI mGy: 2.60 mGy,51.20 mGy,13.10 mGy DLP mGy/cm: 537 mGycm FINDINGS: Mediastinum demonstrates no lymphadenopathy. There is no hilar lymphadenopathy. Esophagus is unremarkable. Heart and great vessels demonstrate no aneurysmal dilatation of thoracic aorta. Main pulmonary artery is unremarkable. Central and segmental pulmonary arteries demonstrate no filling defect to suggest possibility pulmonary embolus. Lung parenchyma demonstrates a calcified granuloma in the right middle lobe measuring 5 mm. No infiltrate or effusion identified. Included portions visualized abdomen are unremarkable. Visualized osseous structures are unremarkable. There is no compression deformity in spine. IMPRESSION: 1. No evidence for pulmonary embolus. This report has been produced using speech recognition. This exam is available in DICOM format to non-affiliated healthcare facilities on a secure media free searchable basis with prior patient authorization. The patient exposure is reported to a radiation dose index registry. All CT examinations are performed with one or more of the following dose reduction techniques: Automated Exposure Control, Adjustment of mA and/or KV according to patient size, or use of iterative reconstruction techniques. Original Interpreting Physician: DAYA ROQUE MD Original Transcribed by/Date: [facility] Aug 28 2021 5:25P Original Electronically Signed by/Date: DAYA ROQUE MD Aug 28 2021 5:25P Addendum Interpreting Physician: Addendum Transcribed by/Date: NO ADDENDUM Addendum Electronically Signed by/Date: Normal [facility] BASIC METABOLIC PANELon 04-2 Anion gap [Moles/Vol] 13 mmol/L Normal 0-19 [facility] Comment on above: Performed By: #### B MP #### [facility] [address] [place] [address] Calcium [Mass/Vol] 9.2 mg/dL Normal 8.5-10.4 [facility] Comment on above: Performed By: #### B MP #### [facility] [address] [place] [address] Chloride [Moles/Vol] 101 mmol/L Normal 97-107 [facility] Comment on above: Performed By: #### B MP #### [facility] [address] [place] [address] CO2 [Moles/Vol] 25 mmol/L Normal 24-[address] [facility] Comment on above: Performed By: #### B MP #### [facility] [address] [place] [address] Creatinine [Mass/Vol] 0.6 mg/dL Normal 0.4-1.6 [facility] Comment on above: Performed By: #### B MP #### [facility] [place] [address] [place] [address] ESTIMATED GFR 121 mL/min/1.73 m2 Normal [facility] Comment on above: Result Comment: CALCULATIONS OF ESTIMATED GFR ARE PERFORMED USING THE 2020 CKD-EPI STUDY REFIT EQUATION WITHOUT THE RACE VARIABLE FOR THE IDMS-TRACEABLE CREATININE METHODS. https://jasn.asnjournals.org/content///ASN.996 8954291 Performed at [address] [place] [address] Performed By: #### B MP #### [place] [address] [place] [address] Glucose [Mass/Vol] 111 mg/dL High 65-99 [facility] Comment on above: Performed By: #### B MP #### [place] [address] [place] [address] Potassium [Moles/Vol] 4.5 mmol/L Normal 3.4-5.1 [facility] Comment on above: Performed By: #### B MP #### [place] [address] [address] [place] [address] Sodium [Moles/Vol] 138 mmol/L Normal 133-145 [facility] Comment on above: Performed By: #### B MP #### [place] [address] [place] [address] Urea nitrogen [Mass/Vol] 5 mg/dL Low 8-25 [facility] Comment on above: Performed By: #### B MP #### [place] [address] [place] [address] Urea nitrogen/Creatinine [Mass ratio] 8.3 mg/mg Normal 8-21 [facility] Comment on above: Performed By: #### B MP #### [facility] [place] [address] [place] [address] CBC with Diffon 08-28-2021 AB IMMATURE NEUT 0.06 K/UL Normal 0.0-0.1 [facility] Comment on above: Performed By: #### C BCD #### [facility] [place] [address] [place] [address] ABS BASO 0.03 K/UL Normal 0.00-0.22 [facility] Comment on above: Performed By: #### C BCD #### [facility] [place] [address] [place] [address] ABS EOS 0.31 K/UL Normal 0-0.45 [facility] Comment on above: Performed By: #### C BCD #### [facility] [place] [address] [place] [address] ABS NEUTROPHILS 4.48 K/UL Normal 1.8-7.[address] [facility] Comment on above: Performed By: #### C BCD #### [facility] [place] [address] [place] [address] ABS.NEUT.CALCULATED 4.48 K/UL Normal [facility] Comment on above: Result Comment: Perf ormed at [place] [address] [place] [address] Performed By: #### C BCD #### [facility] [place] [address] [place] [address] Basophils/100 WBC (Bld) 0.40 % Normal 0-1 [facility] Comment on above: Performed By: #### C BCD #### [facility] [place] [address] [place] [address] DIFF TYPE AUTO DIFF Normal [facility] Comment on above: Performed By: #### C BCD #### [place] [address] [place] [address] Eosinophils/100 WBC (Bld) 3.80 % High 0-3 [facility] Comment on above: Performed By: #### C BCD #### [facility] [place] [address] [place] [address] Erythrocyte distribution width (RBC) [Ratio] 13.3 % Normal 11.7-15.0 [facility] Comment on above: Performed By: #### C BCD #### [facility] [place] [address] [place] [address] Hematocrit (Bld) [Volume fraction] 43.5 % Normal 36-44 [facility] Comment on above: Performed By: #### C BCD #### [facility] [place] [address] [address] Hemoglobin (Bld) [Mass/Vol] 14.5 g/dL Normal 12.0-15.0 [facility] Comment on above: Performed By: #### C BCD #### [facility] [address] [address] Lymphocytes (Bld) [#/Vol] 2.82 10*3/uL Normal 1.2-3.2 [facility] Comment on above: Performed By: #### C BCD #### [facility] [address] [address] Lymphocytes/100 WBC (Bld) 34.90 % Normal 20-40 [facility] Comment on above: Performed By: #### C BCD #### [facility] [address] [address] MCH (RBC) [Entitic mass] 29.7 pg Normal 26-34 [facility] Comment on above: Performed By: #### C BCD #### [address] [address] MCHC 33.3 % Normal 31-37 [facility] Comment on above: Performed By: #### C BCD #### [address] [address] MCV (RBC) [Entitic vol] 89.0 fL Normal 80-100 L [facility] Comment on above: Performed By: #### C BCD #### [facility] [address] [address] MEAN PLT VOL 12.8 CU High 7.0-12.6 [facility] Comment on above: Performed By: #### C BCD #### [facility] [address] [address] Monocytes (Bld) [#/Vol] 0.37 10*3/uL Normal 0-0.8 [facility] Comment on above: Performed By: #### C BCD #### [facility] [address] [address] Monocytes/100 WBC (Bld) 4.60 % Normal 0-8 L [facility] Comment on above: Performed By: #### C BCD #### [facility] [address] [place] [address] Neutrophils/100 WBC (Bld) 0.70 % Normal 0.0-1.0 [facility] Comment on above: Performed By: #### C BCD #### [facility] [address] [place] [address] Neutrophils/100 WBC (Bld) 55.60 % Normal 50-70 [facility] Comment on above: Performed By: #### C BCD #### [facility] [address] [place] [address] NRBC'S 0 /100 WBC Normal 0 [facility] Comment on above: Performed By: #### C BCD #### [place] [address] [place] [address] Platelets (Bld) [#/Vol] 212 10*3/uL Normal 150-450 [facility] Comment on above: Performed By: #### C BCD #### [place] [address] [place] [address] RBC (Bld) [#/Vol] 4.89 10*6/uL Normal 4.0-4.9 [facility] Comment on above: Performed By: #### C BCD #### [place] [address] [place] [address] RDW-SD 43.8 FL Normal 37.0-54.0 [facility] Comment on above: Performed By: #### C BCD #### [place] [address] [place] [address] WBC (Bld) [#/Vol] 8.1 10*3/uL Normal 4.5-11.0 [facility] Comment on above: Performed By: #### C BCD #### [place] [address] [place] [address] CHEST 2 VIEWon 08-28-2021 CHEST 2 VIEW *FINAL Date of Service: 08/28/2021 14:22 Adm #: [id number] Reading Dr:SHIMON Heredia Dr: SHIMON ALVARENGA PROCEDURE: CHEST 2 VIEW - WXR 0020 REASON FOR EXAM: CP RESULT: EXAM: CHEST 2 VIEW INDICATION: Chest pain. VIEWS: PA and Lateral COMPARISON: None available.. RESULT: The cardiac silhouette is within normal limits for size. Mediastinal contours are unremarkable. The lungs demonstrate no infiltrate or area of atelectasis. The osseous structures are unremarkable. IMPRESSION: No radiographic evidence for acute cardiopulmonary disease. [id number] This report has been produced using speech recognition. Original Interpreting Physician: SHIMON ALVARENGA MD Original Transcribed by/Date: [facility] Aug 28 2021 2:47P Original Electronically Signed by/Date: SHIMON ALVARENGA MD Aug 28 2021 2:47P Addendum Interpreting Physician: Addendum Transcribed by/Date: NO ADDENDUM Addendum Electronically Signed by/Date: [facility] D-DIMERon 08-28-2021 D-DIMER 0.87 MG/L FEU High 0.19-0.50 [facility] Comment on above: Result Comment: THROMBOEMBOLIC EVENTS CANNOT BE EXCLUDED SOLELY ON THE BASIS OF THE D-DIMER LEVEL BEING WITHIN THE NORMAL REFERENCE RANGE. D-DIMER LEVELS LESS THAN 0.5 MG/L FEU IN CONJUNCTION WITH A LOW CLINICAL PROBABILITY HAVE AN EXCELLENT NEGATIVE PREDICTIVE VALUE IN EXCLUDING A DIAGNOSIS OF PULMONARY EMBOLUS (PE) OR DEEP VEIN THROMBOSIS (DVT). ELEVATED D-DIMER LEVELS ARE NOT SPECIFIC TO PE OR DVT, AND MAY BE SEEN IN PATIENTS WITH DIC, ADVANCED AGE, , MALIGNANCY, LIVER DISEASE, INFECTION, AND INFLAMMATORY CONDITIONS AMONG OTHERS. D-DIMER LEVELS MAY BE DECREASED IN PATIENTS RECEIVING ANTI-COAGULATION THERAPY. Performed at [place] [address] Performed By: #### [facility] #### [place] [id number] EKGon 08-28-2021 Electrocardiogram EKG Ventricular Rate : 88 BPM Atrial Rate : 88 BPM P-R Interval : 126 ms QRS Duration : 92 ms Q-T Interval : 362 ms QTC Calculation(Bazett) : 438 ms Calculated P [place] : 72 degrees Calculated R [place] : 84 degrees Calculated T [place] : 18 degrees Diagnosis:Normal sinus rhythm Nonspecific T wave abnormality Abnormal ECG Confirmed by ROXY NAIDU ([id number]) on 08/30/2021 11:06:58 AM Normal [facility] HCG QUALITATIVEon 08-28-2021 HCG QUALITATIVE Normal NEG [facility] [facility] Comment on above: Result Comment: NEGA TIVE Performed at [place] [address] Performed By: #### P REG #### [facility] [address] [address] HS TROPONIN Ton 08-28-2021 HS TROPONIN T DELTA 0 Normal 0-4 [facility] Comment on above: Result Comment: Perf ormed at [address] [address] Performed By: #### H STROP #### [address] [address] HS TROPONIN T,GEN 5 6 NG/L Normal <15 [facility] Comment on above: Result Comment: LESS THAN Sex Specific Reference Range: Male (0-22), Female (0-14) Change(Delta) >=5 is significant Troponin Baseline and Serial elevation for significant change(delta)should be interpreted in conjunction with clinical presentation, history, signs and symptoms, ECG and biomarker concentrations. Troponin elevation can be seen in several other non-infarct conditions. Chronic troponin elevations can be detected in clinically stable patients with heart failure, cardiomyopathy, renal failure, diabetes, etc. Elevated troponin can also occur in myocarditis, heart contusion, PE, drug induced cardiotoxicity, etc. Samples should NOT be taken from patients receiving high dose biotin (> 5mg) doses until 8 hours following last biotin administration. Performed By: #### H STROP #### [address] [address] HS TROPONIN T DELTA Normal 0-4 [facility] Comment on above: Result Comment: No p revious result Performed at [address] [address] Performed By: #### H STROP #### [facility] [address] [address] HS TROPONIN T,GEN 5 6 NG/L Normal <15 [facility] Comment on above: Result Comment: LESS THAN Sex Specific Reference Range: Male (0-22), Female (0-14) Change(Delta) >=5 is significant Troponin Baseline and Serial elevation for significant change(delta)should be interpreted in conjunction with clinical presentation, history, signs and symptoms, ECG and biomarker concentrations. Troponin elevation can be seen in several other non-infarct conditions. Chronic troponin elevations can be detected in clinically stable patients with heart failure, cardiomyopathy, renal failure, diabetes, etc. Elevated troponin can also occur in myocarditis, heart contusion, PE, drug induced cardiotoxicity, etc. Samples should NOT be taken from patients receiving high dose biotin (> 5mg) doses until 8 hours following last biotin administration. Performed By: #### H STROP #### [facility] [address] [place] [address] Laboratory - Chemistry and C hemistry - challengeon 08-28-2021 Troponin T.cardiac [Mass/Vol] HS Troponin T,Gen 5 6 NG/L (-<15 NG/L) LESS THAN Sex Specific Reference Range: Male (0-22), Female (0-14) Change(Delta) >=5 is significant Troponin Baseline and Serial elevation for significant change(delta)should be interpreted in conjunction with clinical presentation, history, signs and symptoms, ECG and biomarker concentrations. Troponin elevation can be seen in several other non-infarct conditions. Chronic troponin elevations can be detected in clinically stable patients with heart failure, cardiomyopathy, renal failure, diabetes, etc. Elevated troponin can also occur in myocarditis, heart contusion, PE, drug induced cardiotoxicity, etc. Samples should NOT be taken from patients receiving high dose biotin (> 5mg) doses until 8 hours following last biotin administration. [facility] Anion gap [Moles/Vol] Anion Gap 13 MMOL/ L (0-19 MMOL/L) 0 - 19 MMOL/L [facility] Calcium [Mass/Vol] Calcium 9.2 MG/DL (8.5-10.4 MG/DL) 8.5 - 10.4 MG/DL [facility] Chloride [Moles/Vol] Chloride 101 MMOL/L (97-107 MMOL/L) 97 - 107 MMOL/L [facility] CO2 [Moles/Vol] Carbon Dioxide 25 MM OL/L (24-31 MMOL/L) 24 - 31 MMOL/L [facility] Creatinine [Mass/Vol] Creatinine R 0.6 M G/DL (0.4-1.6 MG/DL) 0.4 - 1.6 MG/DL [facility] GFR/1.73 sq M.predicted MDRD (S/P/Bld) [Vol rate/Area] EGFR 121 mL/min/1.73 m2 (Reference Range: not available) CALCULATIONS OF ESTIMATED GFR ARE PERFORMED USING THE 2020 CKD-EPI STUDY REFIT EQUATION WITHOUT THE RACE VARIABLE FOR THE IDMS-TRACEABLE CREATININE METHODS. https://jasn.asnjournals. org/content//ASN.9441499203 Performed at [address] [address] [facility] Glucose [Mass/Vol] Glucose 111 MG/DL H (65-99 MG/DL) High 65 - 99 MG/DL [facility] HCG ( test) Ql HCG Serum Qualit itative NEGATIVE Performed at [address] [address] (NEG ) [facility] Potassium [Moles/Vol] Potassium R 4.5 MM OL/L (3.4-5.1 MMOL/L) 3.4 - 5.1 MMOL/L [facility] Sodium [Moles/Vol] Sodium 138 MMOL/L (133-145 MMOL/L) 133 - 145 MMOL/L [facility] Troponin T.cardiac [Mass/Vol] HS Troponin T,Gen 5 6 NG/L (-<15 NG/L) LESS THAN Sex Specific Reference Range: Male (0-22), Female (0-14) Change(Delta) >=5 is significant Troponin Baseline and Serial elevation for significant change(delta)should be interpreted in conjunction with clinical presentation, history, signs and symptoms, ECG and biomarker concentrations. Troponin elevation can be seen in several other non-infarct conditions. Chronic troponin elevations can be detected in clinically stable patients with heart failure, cardiomyopathy, renal failure, diabetes, etc. Elevated troponin can also occur in myocarditis, heart contusion, PE, drug induced cardiotoxicity, etc. Samples should NOT be taken from patients receiving high dose biotin (> 5mg) doses until 8 hours following last biotin administration. [facility] Urea nitrogen [Mass/Vol] BUN 5 MG/DL L ( 8-25 MG/DL) Low 8 - 25 MG/DL [facility] Urea nitrogen/Creatinine [Mass ratio] BUN Creatinine Ratio 8.3 RATIO (8-21 RATIO) 8 - 21 RATIO [facility] Laboratory - Coagulationon 0 08-28-2021 Fibrin D-dimer FEU (PPP) [Mass/Vol] D Dimer 0.87 MG/L FEU H (0.19-0.50 MG/L FEU) THROMBOEMBOLIC EVENTS CANNOT BE EXCLUDED SOLELY ON THE BASIS OF THE D-DIMER LEVEL BEING WITHIN THE NORMAL REFERENCE RANGE. D-DIMER LEVELS LESS THAN 0.5 MG/L FEU IN CONJUNCTION WITH A LOW CLINICAL PROBABILITY HAVE AN EXCELLENT NEGATIVE PREDICTIVE VALUE IN EXCLUDING A DIAGNOSIS OF PULMONARY EMBOLUS (PE) OR DEEP VEIN THROMBOSIS (DVT). ELEVATED D-DIMER LEVELS ARE NOT SPECIFIC TO PE OR DVT, AND MAY BE SEEN IN PATIENTS WITH DIC, ADVANCED AGE, , MALIGNANCY, LIVER DISEASE, INFECTION, AND INFLAMMATORY CONDITIONS AMONG OTHERS. D-DIMER LEVELS MAY BE DECREASED IN PATIENTS RECEIVING ANTI-COAGULATION THERAPY. Performed at [address] [address] High 0.19 - 0.50 MG/L FEU [facility] - Hematology and Cell countson 08-28-2021 Basophils (Bld) [#/Vol] Abs Baso 0.03 K/ UL (0.00-0.22 K/UL) 0.00 - 0.22 K/UL [facility] Basophils/100 WBC (Bld) Basophil 0.40 % (0-1 %) 0 - 1 % [facility] Differential cell count method Nom (Bld) Diff Type AUTO DIFF (Reference Range: not available) [facility] Eosinophils (Bld) [#/Vol] Abs Eos 0.31 K/UL (0-0.45 K/UL) 0 - 0.45 K/UL [facility] Eosinophils/100 WBC (Bld) Eosinophil 3.80 % H (0-3 %) High 0 - 3 % [facility] Erythrocyte distribution width (RBC) [Entitic vol] RDW SD 43.8 FL (37.0-54.0 FL) 37.0 - 54.0 FL [facility] Erythrocyte distribution width (RBC) [Ratio] RDW CV 13.3 % (11.7-15.0 %) 11.7 - 15.0 % [facility] Hematocrit (Bld) [Volume fraction] HCT 43.5 % (36-44 %) 36 - 44 % [facility] Hemoglobin (Bld) [Mass/Vol] HGB 14.5 GM/DL (12.0-15.0 GM/DL) 12.0 - 15.0 GM/DL [facility] Immature granulocytes (Bld) [#/Vol] Abs Imm Neut 0.06 K/UL (0.0-0.1 K/UL) 0.0 - 0.1 K/UL [facility] Lymphocytes (Bld) [#/Vol] Abs Lymph 2.82 K/UL (1.2-3.2 K/UL) 1.2 - 3.2 K/UL [facility] Lymphocytes/100 WBC (Bld) Lymphocyte 34.90 % (20-40 %) 20 - 40 % [facility] MCH (RBC) [Entitic mass] MCH 29.7 PG (26-34 PG) 26 - 34 PG [facility] MCHC (RBC) [Mass/Vol] MCHC 33.3 % (31-37 %) 31 - 37 % [facility] MCV (RBC) [Entitic vol] MCV 89.0 FL (80-100 FL) 80 - 100 FL [facility] Monocytes (Bld) [#/Vol] Abs Summers 0.37 K/ UL (0-0.8 K/UL) 0 - 0.8 K/UL [facility] Monocytes/100 WBC (Bld) Monocyte 4.60 % (0-8 %) 0 - 8 % [facility] Neutrophils (Bld) [#/Vol] Abs.Neut.Calculated 4.48 K/UL (Reference Range: not available) Performed at [address] [address] [facility] Neutrophils (Bld) [#/Vol] Abs Neut 4.48 K/UL (1.8-7.7 K/UL) 1.8 - 7.7 K/UL [facility] Neutrophils.immature/100 WBC (Bld) Immature Neut % 0.70 % (0.0-1.0 %) 0.0 - 1.0 % [facility] Nucleated RBC/100 WBC (Bld) [Ratio] NRBCs 0 /100 WBC (0 /100 WBC) [facility] Platelet mean volume (Bld) [Entitic vol] MPV 12.8 CU H (7.0-12.6 CU) High 7.0 - 12.6 CU [facility] Platelets (Bld) [#/Vol] PLT 212 K/UL (15 0-450 K/UL) 150 - 450 K/UL [facility] RBC (Bld) [#/Vol] RBC 4.89 M/UL (4.0-4 .9 M/UL) 4.0 - 4.9 M/UL [facility] Segmented neutrophils/100 WBC (Bld) Granulocyte 55.60 % (50-70 %) 50 - 70 % [facility] WBC (Bld) [#/Vol] WBC 8.1 K/UL (4.5-11 .0 K/UL) 4.5 - 11.0 K/UL [facility] No Panel Informationon 08-28 CT Angio Chest (Refe rence Range: not available) *FINAL Date of Service: 08/28/2021 17:06 Adm #: [id number] Reading Dr:DAYA ROQUE Signoff Dr: DAYA ROQUE PROCEDURE: ANGIO CHEST - T 3081 REASON FOR EXAM: chest pain, sob RESULT: ANGIO CHEST: 08/28/2021 5:06 PM. CLINICAL INDICATION: chest pain, sob . COMPARISON: None.. TECHNIQUE: CT angiography (non-coronary) of the chest was performed with Intravenous contrast material along with 3D (maximum intensity projection - MIP) image post processing and coronal reformatted images. 100 ml Omnipaque 350 was injected intravenously. PATIENT RADIATION EXPOSURE DATA: CTDI mGy: 2.60 mGy,51.20 mGy,13.10 mGy DLP mGy/cm: 537 mGycm FINDINGS: Mediastinum demonstrates no lymphadenopathy. There is no hilar lymphadenopathy. Esophagus is unremarkable. Heart and great vessels demonstrate no aneurysmal dilatation of thoracic aorta. Main pulmonary artery is unremarkable. Central and segmental pulmonary arteries demonstrate no filling defect to suggest possibility pulmonary embolus. Lung parenchyma demonstrates a calcified granuloma in the right middle lobe measuring 5 mm. No infiltrate or effusion identified. Included portions visualized abdomen are unremarkable. Visualized osseous structures are unremarkable. There is no compression deformity in spine. IMPRESSION: 1. No evidence for pulmonary embolus. This report has been produced using speech recognition. This exam is available in DICOM format to non-affiliated healthcare facilities on a secure media free searchable basis with prior patient authorization. The patient exposure is reported to a radiation dose index registry. All CT examinations are performed with one or more of the following dose reduction techniques: Automated Exposure Control, Adjustment of mA and/or KV according to patient size, or use of iterative reconstruction techniques. Original Interpreting Physician: DAYA ROQUE MD Original Transcribed by/Date: [facility] Aug 28 2021 5:25P Original Electronically Signed by/Date: DAYA ROQUE MD Aug 28 2021 5:25P Addendum Interpreting Physician: Addendum Transcribed by/Date: NO ADDENDUM Addendum Electronically Signed by/Date: [facility] HS Troponin T Delta 0 (0-4 ) Performed at [address] [address] 0 - 4 [facility] XR Chest 2 Views (PA and lat) (Reference Range: not available) *FINAL Date of Service: 08/28/2021 14:22 Adm #: [id number] Reading Dr:SHIMON ALVARENGA Signoff Dr: SHIMON ALVARENGA PROCEDURE: CHEST 2 VIEW - WXR 0020 REASON FOR EXAM: CP RESULT: EXAM: CHEST 2 VIEW INDICATION: Chest pain. VIEWS: PA and Lateral COMPARISON: None available.. RESULT: The cardiac silhouette is within normal limits for size. Mediastinal contours are unremarkable. The lungs demonstrate no infiltrate or area of atelectasis. The osseous structures are unremarkable. IMPRESSION: No radiographic evidence for acute cardiopulmonary disease. [id number] This report has been produced using speech recognition. Original Interpreting Physician: SHIMON ALVARENGA MD Original Transcribed by/Date: [facility] Aug 28 2021 2:47P Original Electronically Signed by/Date: SHIMON ALVARENGA MD Aug 28 2021 2:47P Addendum Interpreting Physician: Addendum Transcribed by/Date: NO ADDENDUM Addendum Electronically Signed by/Date: [facility] HS Troponin T Delta No previous result Performed at [address] [address] (0-4 ) 0 - 4 [facility] HCG ( test) Ql (U)o n 12-10-2020 HCG.beta subunit [Moles/Vol] Negative [facility] XR CHEST PA/APon 09-21-2020 XR CHEST PA/AP EXAMINATION: XR CHEST PA/AP HISTORY: chest pain Injury/Trauma or Illness?:Illness/Other How long have you had these symptoms (acute/chronic)?:Acute Reason for exam?:cp History of cancer?:n Surgeries, chemotherapy, or radiation?:n COMPARISON: None TECHNIQUE: AP portable FINDINGS: The lungs are well-aerated. There is no evidence for pleural fluid collection pleural thickening. The heart size is normal. No pneumothorax is visualized. Osseous structures are unremarkable. IMPRESSION: No acute findings. Workstation ID: [id number] Dictated by: MATTHEW MCKEON on [employer] September 20, 2020 11:31:58 PM EDT Transcribed by: MATTHEW MCKEON on [employer] September 20, 2020 11:31:58 PM EDT Finalized by: MATTHEW MCKEON on [employer] September 20, 2020 11:31:58 PM EDT [facility] Comment on above: Order Comment: Injur y/Trauma or Illness?:Illness/Other How long have you had these symptoms (acute/chronic)?:Acute Reason for exam?:cp History of cancer?:n Surgeries, chemotherapy, or radiation?:n Type of Exam?:Initial Additional signs and symptoms?: PROGRESSon 06-15-2020 PROGRESS HNO ID: [id number] Author: Yenny Silva Service: ? Author Type: Psychologist Type: Progress Notes Filed: 06/15/2020 8:29 PM Note Text: Patient: Isidra Zaldivar : 1985 Referred By: Olman Son DO Dates of Service: 04/08/2020 AND 05/28/2020 Reason for Referral: assessment of neurocognitive functions due to subjective complaints of memory loss Tests Administered: Javi Adult Intelligence Scale, fourth edition (WAIS-IV), Javi Memory Scale-IV(WMS-IV) Logical Memory I AND II subtests, [place] Verbal Learning Test-3 (CVLT-3), Jimmy Complex Figure Test (RCFT), [place] Card Sorting Test (WCST), Meghna Anne Executive Function System (DKEFS) [place] Making AND Verbal Fluency subtests, Luly? Continuous Performance Test, third edition (CPT-3), Rufus Naming Test, second edition (BNT-2), Purdue Grooved Pegboard Test (Pegs), Test of Memory [place] (TOMM), ANDREW-7, PHQ-9, History Taking AND Clinical Interview with Isidra. Test Findings: Note: Where possible, the raw data have been compared with currently available norms which may include demographic corrections for age, gender, and/or education. See attached data summary sheet for individual scores. Current Medications: medroxyprogesterone 150 mg injection q 12 weeks, lamotrigine 150 mg bid, prazosin 1 mg in am, 2 mg at hs, desmopressin acetate 0.2 mg, palipenidone ER 9 mg Past Medical History: epilepsy, asthma Activities of Daily Living: Pt. ADLs: independent Pt IADLs: requires some assistance Pt. Driving ? no valid license Pt. 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22 Illicit Drug Use: straight since 21 or 22 Smoking Status: 1-3 packs/day Caffeine Use: 1 pot coffee, 6 20oz Mountain Dew/day Marital Status: Occupation/Work Status: disabled Educational History: high school graduate, received accommodations due to behavioral concerns Psychological History: currently under the care of a psychiatrist and a therapist, reported prior diagnosis of schizophrenia Impressions: due to poor performance on measures of motivation and effort no valid cognitive data was obtained; no evidence of affective distress Diagnosis: deferred Behavioral Observations: Alert and oriented in all three spheres, Isidra arrived on time and alone to the testing appointment. She reported that her had provided transportation to the office. Follow up visit was completed via telehealth due to the covid pandemic. Grooming and hygiene were fair. Isidra did not appear to have combed her hair. She was casually dressed and noted to be wearing dirty sweatpants. She ambulated independently in the office setting without the assistance of a device. Speech was of normal rate, rhythm, and prosody with no evidence of aphasia or dysarthria in conversation. Thought processes were logical, coherent, and goal-directed, with no evidence of hallucinations or delusions. Mood was euthymic with congruent affect. Isidra denied any current or recent suicidal or homicidal ideation or intent. Hearing and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 back Discussed with Dr. Price and agrees. Magnesium and potassium both low, will replete. See orders. WBC slightly elevated - likely from vomiting and . Late addendum - 09/03/18 @ 0500 - Pt given zofran for nausea. Feeling better. UA back - sample from bedpan, so likely contaminated - will wait for culture. Ok to d/c home when ride arrives. Discussed with Dr. price and agrees. Normal [facility] Amylase Levelon 09-03-2018 Amylase enzyme act/vol 30 Units/L Normal 26-[address] [facility] Comment on above: Performed By: #### 5 8077-9, 72396-3 #### [facility], [address] [place], [place]. Basic Metabolic Panelon 08-07 Anion gap molar conc 15.0 mmol/L Normal 6.0-18.0 [facility] Comment on above: Performed By: #### 5 8077-9, 97432-5 #### [facility], [address] [place], [place]. Calcium mass conc 8.6 mg/dL Low 8.9-10.3 [facility] Comment on above: Performed By: #### 5 8077-9, 68791-2 #### [facility], [address] [place] [address]. Chloride molar conc 93 mmol/L Low 98-107 [facility] Comment on above: Performed By: #### 5 8077-9, 34501-7 #### [facility], [address] [place] [address]. CO2 molar conc 22 mmol/L Normal 22-32 [facility] Comment on above: Performed By: #### 5 8077-9, 86008-1 #### [facility], [address] [place] [address]. Creatinine mass conc 0.33 mg/dL Low 0.60-1.30 [facility] Comment on above: Performed By: #### 5 8077-9, 17460-2 #### [facility], [address] [place] [address]. Glucose mass conc 83 mg/dL Normal 70-99 [facility] Comment on above: Result Comment: U pdated ADA Reference Range A normal fasting glucose concentration is less than 100 mg/dL. An impaired fasting glucose concentration is 100-125 mg/dL. A provisional diagnosis of diabetes mellitus can be made when a fasting glucose concentration is greater than 125 mg/dL. Performed By: #### 5 8077-9, 04158-8 #### [facility], [address] [place] [address]. Potassium molar conc 3.0 mmol/L Low 3.6-5.1 [facility] Comment on above: Performed By: #### 5 8077-9, 97740-5 #### [facility], [address] [place] [address]. Sodium molar conc 130 mmol/L Low 136-145 [facility] Comment on above: Performed By: #### 5 8077-9, 80165-9 #### [facility], [address] [place] [address]. Urea nitrogen mass conc (BldV) 4 mg/dL Low 8-20 [facility] Comment on above: Performed By: #### 5 8077-9, 00251-7 #### [facility], [address] [place] [address]. CBC with Differentialon 08-07 Erythrocyte distribution width Entitic volume (RBC) 15.4 % High 11.0-14.8 [facility] Comment on above: Performed By: #### 5 7020-0, 36241-2 #### [facility], [address] [place] [address]. Hematocrit Volume Fraction (Bld) 39.9 % Normal 35.0-45.0 [facility] Comment on above: Performed By: #### 5 7020-0, 13776-0 #### [facility], [address] [place] [address]. Hemoglobin mass conc (Bld) 13.7 g/dL Normal 12.0-16.0 [facility] Comment on above: Performed By: #### 5 7020-0, 51002-5 #### [facility], [address] [place] [address]. MCH Entitic mass (RBC) 29.1 Picograms Normal 27.0-34.0 [facility] Comment on above: Performed By: #### 5 7020-0, 77600-8 #### [facility], [address] [place] [address]. MCHC mass conc (RBC) 34.4 g/dL Normal 32.0-36.0 [facility] Comment on above: Performed By: #### 5 7020-0, 71102-9 #### [facility], [address] [place] [address]. MCV Entitic volume (RBC) 84.6 fL Normal 80.0-97.0 [facility] Comment on above: Performed By: #### 5 7020-0, 67018-7 #### [facility], [address] [place] [address]. Platelet mean volume Entitic volume (Bld) 11.2 fL Normal 6.2-12.1 [facility] Comment on above: Performed By: #### 5 7020-0, 93403-3 #### [facility], [address] [place] [address]. Platelets #/vol (Bld) 203 thou/mcL Normal 142-424 M [facility] Comment on above: Performed By: #### 5 7020-0, 46331-9 #### [facility], [address] [place] [address]. RBC #/vol (Bld) 4.72 million/mcL Normal 3.80-5.10 [facility] Comment on above: Performed By: #### 5 7020-0, 66604-2 #### [facility], [address] [place] [address]. WBC #/vol (Bld) 17.5 thou/mcL High 4.6-10.2 [facility] Comment on above: Performed By: #### 5 7020-0, 90657-3 #### [facility], [address] [place] [address]. Culture Urine + Susceptibili tyon 09-03-2018 Bacteria identified Cx Nom (U) [facility] Microbiology PROCEDURE: Culture Urine + Susceptibility SOURCE: Urine BODY SITE: COLLECTED DATE/TIME: 09/02/2018 23:46 EDT RECEIVED DATE/TIME: 09/02/2018 23:46 EDT START DATE/TIME: 09/02/2018 23:46 EDT FREE TEXT SOURCE: URINE INTERFACED REPORTS Final Report [] Verified Date/Time/Personnel: 09/04/2018 09:17 EDT CONTRIBUTOR_SYSTEM, CO_PN ORGANISMS USUALLY ASSOCIATED WITH VAGINAL,URETHRAL, AND/OR SKIN CONTAMINATION PRESENT. Normal [facility] Comment on above: Performed By: #### 5 8077-9, 71804-0 #### [facility], [address] [place] [address]. Differential Manualon 2018 Anisocytosis Ql (Bld) 1+ Normal [facility] Comment on above: Performed By: #### 5 7020-0, 57120-5 #### [facility], [address] [place] [address]. Band form neutrophils/100 WBC (Bld) 1 % Normal [facility] Comment on above: Performed By: #### 5 70-0, 16929-5 #### [facility], [address] [place] [address]. Lymphocytes/100 WBC (Bld) 10 % Low 22-44 [facility] Comment on above: Performed By: #### 5 7019-0, 98310-7 #### [facility], [address] [place] [address]. Metamyelocytes/100 WBC (Bld) 4 % High 0-0 [facility] Comment on above: Performed By: #### 5 7019-0, 36882-5 #### [facility] [facility], [address] [place] [address]. Monocytes/100 WBC (Bld) 3 % Normal 0-12 [facility] Comment on above: Performed By: #### 5 7019-0, 91899-6 #### [facility], [address] [place] [address]. Myelocytes/100 WBC (Bld) 2 % High 0-0 [facility] Comment on above: Performed By: #### 5 7019-0, 42917-7 #### [facility], [address] [place] [address]. Neutrophils #/vol (Bld) 14.01 thou/mcL High 1.80-7.7 0 [facility] Comment on above: Result Comment: CALC ULATION BASED ON THE MANUAL DIFFERENTIAL RESULTS. Performed By: #### 5 70-0, 90283-4 #### [facility], [address] [place] [address]. Segmented neutrophils/100 WBC (Bld) 79 % High 40-70 [facility] Comment on above: Performed By: #### 5 7020-0, 83027-3 #### [facility], [address] [place] [address]. Variant lymphocytes #/vol (Bld) 2 % Normal [facility] Comment on above: Performed By: #### 5 7020-0, 54184-9 #### [facility], [address] [place] [address]. GFRaaon 09-03-2018 GFR/1.73 sq M predicted among blacks MDRD vol rate/area (S/P/Bld) mL/min/{1.73_m2} Normal [facility] Comment on above: Result Comment: The MDRD equation has not been validated for those over 70 years, women, patients with serious co-morbid conditions, or with extremes of body size, muscle mass of nutritional status. Performed By: #### 5 7020-0, 46413-5 #### [facility], [address] [place] [address]. GFRbbon 09-03-2018 GFR/1.73 sq M predicted among non-blacks MDRD vol rate/area (S/P/Bld) mL/min/{1.73_m2} Normal [facility] Comment on above: Performed By: #### 5 7020-0, 14344-1 #### [facility], [address] [place] [address]. Hepatic Function Panelon Albumin mass conc 2.5 g/dL Low 3.5-4.8 [facility] Comment on above: Performed By: #### 5 8077-9, 83636-8 #### [facility], [address] [place] [address]. ALP enzyme act/vol 106 Units/L High 32-91 [facility] Comment on above: Performed By: #### 5 8077-9, 37938-8 #### [facility], [address] [place] [address]. ALT enzyme act/vol 68 Units/L High 14-63 [facility] Comment on above: Performed By: #### 5 8077-9, 16718-0 #### [facility], [address] [place] [address]. AST enzyme act/vol 70 Units/L High 15-41 [facility] Comment on above: Performed By: #### 5 8077-9, 59287-9 #### [facility], [address] [place] [address]. Bilirubin mass conc 1.2 mg/dL Normal 0.3-1.2 [facility] Comment on above: Performed By: #### 5 8077-9, 48411-3 #### [facility], [address] [place] [address]. Bilirubin.direct mass conc 0.3 mg/dL Normal 0.1-0.5 [facility] Comment on above: Performed By: #### 5 8077-9, 68496-1 #### [facility], [address] [place] [address]. Bilirubin.indirect mass conc 0.9 mg/dL Normal 0.0-1.0 [facility] Comment on above: Performed By: #### 5 8077-9, 37474-4 #### [facility], [address] [place] [address]. Protein mass conc 6.7 g/dL Normal 6.1-7.9 [facility] Comment on above: Performed By: #### 5 8077-9, 36457-0 #### [facility], [address] [place] [address]. Lipaseon 09-03-2018 Lipase enzyme act/vol 21 Units/L Low 22-51 [facility] Comment on above: Performed By: #### 5 8077-9, 43018-9 #### [facility], [address] [place] [address]. Magnesium Levelon 09-03-2018 Magnesium mass conc 1.5 mg/dL Low 1.8-2.5 [facility] Comment on above: Performed By: #### 5 8077-9, 56931-8 #### [facility], [address] [place] [address]. Patient Summaryon 09-03-2018 Patient Summary PATIENT DISCHARGE INSTRUCTIONS If you are having an emergency and are not able to reach your physician, CALL 911 or go to the nearest emergency room and take this document with you. Néstor Gomez [facility] 09/03/18 05:33 [address] [place] [address] PATIENT INFORMATION -------- Name: ISIDRA ZALDIVAR Address: [address] [place] [address] Age: 32 Years Phone: [phone] : 1985 12:00 MRN: [facility][id number] Sex: Female Race: White Ethnicity: Not Hispan/Lat Admitted From: [facility] Medical Service: Obstetric Nurse Unit/Bed: ([place]) [facility] 5D03-47 Admit Date: 09/02/2018 23:16 PCP: Physician, No PCP PHYSICIANS INVOLVED WITH CARE Attending Physicians: JASMIN Price MD Manav - Obstetrics, Gynecology Admitting Physician: None found Primary Care Physician:Physician, No PCP,Family Practice,Internal Medicine,, - Consults: None found ALLERGIES: Phenergan : Reaction:Rash MEASUREMENTS: Last Charted: Weight: Admission 89.50 kg /197 lbs 5 oz ( 09/02/18 23:30:00 ) MEDICATIONS For: ISIDRA ZALDIVAR This is your list of medication(s). Keep it with you at all times. Your doctor may have changed doses, add, held or stopped some of your medications. Please share this information with your family doctor. Carry this list of medications with you in case of an emergency. Update it when medications are stopped, doses are changed, or new medications (including fyyp-uhw-rhetvjn products) are added. Ask your doctor if you have any questions. THESE ARE THE MEDICATIONS YOU SHOULD BE TAKING famotidine (famotidine 20 mg oral tablet) 1 Tab(s) By Mouth Twice a day. Refills: 5. lurasidone (lurasidone 20 mg oral tablet) 20 Milligram By Mouth once a day for 4 Week(s). with food Follow with psychiatrist for refills. Refills: 1. metoclopramide (metoclopramide 10 mg oral tablet) 1 Tab(s) By Mouth Before Meals - 3 Times a day. Refills: 3. multivitamin, ( Multivitamin) 1 Tab(s) By Mouth once a day. ondansetron (Zofran ODT 4 mg oral tablet, disintegrating) 1 Tab(s) By Mouth every 6 hours as needed Nausea and Vomitting. Refills: 1. potassium chloride (potassium chloride 20 mEq oral tablet, extended release) 1 Tab(s) By Mouth with Breakfast and Dinner for 7 Days. do not crush or chew with a full glass of water with food. Refills: 0. MEDICATION CHANGE DETAILS (Not your Final Home Medication List) During the course of your visit, your home medication list was updated with the most current information. The details of those changes are shown below: NEW MEDICATIONS None UPDATED MEDICATIONS None UNCHANGED MEDICATIONS Other Medications famotidine (famotidine 20 mg oral tablet) 1 Tab(s) By Mouth Twice a day. Refills: 5. Comment lurasidone (lurasidone 20 mg oral tablet) 20 Milligram By Mouth once a day for 4 Week(s). with food Follow with psychiatrist for refills. Refills: 1. Comment metoclopramide (metoclopramide 10 mg oral tablet) 1 Tab(s) By Mouth Before Meals - 3 Times a day. Refills: 3. Comment multivitamin, ( Multivitamin) 1 Tab(s) By Mouth once a day. Comment ondansetron (Zofran ODT 4 mg oral tablet, disintegrating) 1 Tab(s) By Mouth every 6 hours as needed Nausea and Vomitting. Refills: 1. Comment potassium chloride (potassium chloride 20 mEq oral tablet, extended release) 1 Tab(s) By Mouth with Breakfast and Dinner for 7 Days. do not crush or chew with a full glass of water with food. Refills: 0. Comment STOP TAKING THESE MEDICATIONS None DO NOT TAKE UNTIL YOU TALK TO YOUR DOCTOR None NON-MEDICATION PRESCRIPTION SCHEDULING PHONE NUMBER: SELECTED LAB RESULTS Lab Result Order Date Hemoglobin 13.7 gm/dL 09/02/2018 Hematocrit 39.9 % 09/02/2018 WBC Count 17.5 thou/mcL 09/02/2018 Platelet Count 203 thou/mcL 09/02/2018 Sodium Level 130 mMol/L 09/02/2018 Potassium Level 3.0 mMol/L 09/02/2018 Creatinine 0.33 mg/dL 09/02/2018 BUN 4 mg/dL 09/02/2018 Total Bilirubin 1.2 mg/dL 09/02/2018 Glucose Level 83 mg/dL 09/02/2018 ADVANCE DIRECTIVE/HEALTH CARE DECISIONS: Advance Directive/Health Care Decisions Executed by Patient: : No Information Obtained From: Patient Advance Directive Health Care Information Offered: Patient declines SMOKING CESSATION: Tobacco use is the number one preventable cause of and disease. Please stop all use of tobacco. Talk with your physician or call the [employer] at or visit their web site atwww.[email or web address]. You can also contact the [employer] at or visit their web site at www.amhrt.org SUICIDE HOTLINE: Your mental and emotional well-being are important. If you are in a mental health crisis, or having thoughts of suicide, please call the nationwide suicide hotline, anytime day or night, at 6-621-020-CQSV. Important information about accessing your health information through the [employer] patient portal If you initiated the self-registration process for WSO2 during your stay, please check your personal email for an invitation to enroll in [facility] and complete the steps outlined in the email. If you would prefer to enroll while in the hospital, ask a member of your care team. We would be happy to assist you. If you have already enrolled in WSO2, go to [email or web address] to login and access your health information. Thank you for choosing [employer]. PATIENT EDUCATION Antepartum Discharge Instructions Follow the instructions that are marked (X) ? SIGNS OF PRE-ECLAMPSIA (PIH) ?? Sudden onset of moderate to severe headache that does not go away. ?? Changes of your vision or eyesight. ?? Severe upper abdominal pain that continues or gets worse. ?? Sudden swelling of the face and hands. ?? High blood pressure (if you have been instructed to monitor your blood pressure). ? LABOR (LESS THAN 37 WEEKS GESTATION) ?? Drink 8-12 glasses of water a day. ?? Call your doctor if you have any of the following: Increased vaginal discharge Burning and frequent urination More than 6 contractions in 1 hour Cramping or back pain/pressure. ? URINARY TRACT INFECTION ?? Drink 8-12 glasses (about 2-3 liters) of water a day. ?? Call your doctor if you have a temperature of 100.4??F (38 C) or higher. ?? Call your doctor if burning and frequent urination returns after taking all your medication. ?? Call your doctor if back pain occurs. ? ACTIVITY LEVEL ? Bedrest ? Activity as tolerated ? No work or school for days. ? No sexual activity, tub baths, douching and tampons until directed by your doctor. ? FOLLOW-UP INSTRUCTIONS ? Culture was obtained, contact physician for results ? Instructed on Movement counts (Handout given) ? Smoking as well as secondhand smoke causes harm to you and your baby. For help living smoke free there are resources for you. Talk with your healthcare provider or call 4-779-EVOC-NOW. ? MEDICATIONS ? Prescriptions given ? Prescriptions sent to pharmacy Return to Labor and Delivery if you have any of the following signs or symptoms: ?? Bright red vaginal bleeding. ?? Fever above 101 F (38.3 C). ?? Sudden, severe pain or pain not relieved by medication. ?? Pain, swelling, redness and warmth in legs. ?? If greater than 37 weeks gestation - Uterine contractions every 5 minutes lasting about one minute with increasing strength over an hour. ?? A gush or trickle of watery fluid from the vagina ?? Abdomen that feels continually ??rock hard?? ? Decreased movement of your baby (see Movement handout for additional details) If any of these instructions are different from what your doctor tells you, follow your doctor's orders. Common Discomforts of Your body will go through many changes during your . It is hard to know when to worry about these changes, especially if you are a first-time mother. We want you to feel more at ease with the changes you may have and give you knowledge to cope with these discomforts and changes. Some of the common discomforts and changes and ways to relieve them are described below. Abdominal pain is the most common complaint of women when they come to the hospital. There are things you can do daily to prevent some types of abdominal discomfort: ?? Drink 8 to 12 glasses of fluid each day, most of that being water. ?? Empty your bladder often. ?? Eat healthy regular meals with plenty of fruits, vegetables, and fiber. Some women experience round ligament pain, which can be felt in the lower abdomen or one or both groins. This discomfort occurs when the ligaments that support your growing uterus stretch as you progress through your . Things you can do to relieve this pain are: ?? Take a warm bath. ?? Use a heating pad in 15 minute intervals. ?? Wear a maternity belt. ?? Bend towards the pain to ease the stretching. ?? Use pillows to support under your belly and between your legs when lying down. Back pain is another common complaint that most women can expect. Lower back pain can result from the shift in the center of gravity and the shift in your posture as your baby grows. This change causes strain on your back muscles. Lower back pain usually increases with additional pregnancies due to the weakness of the abdominal muscles as the uterus grows. To relieve back pain, you can: ?? Have good posture. ?? Wear supportive low heeled shoes. ?? Wear a maternity belt. ?? Use a heating pad. ?? Take warm baths. ?? Have a massage or back rub. ?? Avoid a lot of bending, lifting or walking without rest. ?? Take Tylenol?? (acetaminophen) as needed - as directed by your health care provider. Vaginal spotting can be normal in some circumstances in . The cervix is made up of many blood vessels and any inflammation of the cervix or vagina can cause bleeding. Vaginal spotting can be expected after intercourse or after a cervical exam. Spotting may also occur with bacterial infections, sexually transmitted infections, or yeast infections. These causes should be treated and resolved quickly. Bleeding heavier than spotting is not normal and you should immediately contact your care provider if this occurs. Nausea is experienced by ?? to 3/4 of all women, but the nausea resolves in 90% of women by about 22 weeks of . Nausea can be caused by hormonal changes, stomach overloading, slowed movement of your intestines, low blood sugar, or emotional factors. Some ways you can prevent and relieve nausea are: ?? Eat small frequent meals every 2 - 3 hours. ?? Eat dry crackers before getting up. ?? Avoid fatty and spicy foods. ?? Drink carbonated beverages such as geri benson. ?? Get enough rest. Dizziness is something women can experience throughout their too. This is often caused by low blood pressure, low blood sugar, or low iron. To help prevent dizziness: ?? Eat small frequent meals to maintain your blood sugar. ?? Take iron supplements as directed by your care provider. ?? Change positions slowly, especially from sitting to standing. Shortness of breath is caused by the increased amounts of hormones during acting on your respiratory system. As your uterus grows, it presses on the diaphragm making it harder to fully expand your lungs and take a deep breath. Standing up and stretching your arms above your head will allow you to take a deep breath. Good posture will also help relieve shortness of breath. Swelling can be caused by impaired circulation and increased pressure in the veins in your legs. To decrease or avoid increased swelling: ?? Avoid wearing tight clothing. ?? Elevate your legs throughout the day. ?? Position yourself on your side when lying down. ?? Wear a maternity belt. Headaches are a common complaint of women. These can be uncomfortable, but are rarely a sign of a serious problem. Headaches usually occur in the first and third trimester of . They can be caused by poor posture, lack of sleep, dehydration, caffeine withdrawal, stress, or low blood sugar. To prevent or relieve headaches: ?? Use relaxation techniques such as slow deep breathing or massage. ?? Reduce stress as much as you can. ?? Take warm baths. ?? Exercise regularly. ?? Eat healthy meals at regular times. ?? Get plenty of rest. ?? Take Tylenol?? (acetaminophen) as needed - as directed by your health care provider. Leg cramps in are thought to be caused by pressure on the pelvic blood vessels by your growing uterus, which can impair blood flow. Leg cramps can also be caused by an imbalance in minerals. Measures to prevent and relieve leg cramps include: ?? Straighten your leg and flex your foot. ?? Put strong pressure on the bottom of your foot. ?? Get regular exercise. ?? Elevate your legs throughout the day. ?? Eat a healthy diet. Many of the common discomforts of can be prevented or relieved with a few easy things you can do every day: ?? Eat regular meals. ?? Get plenty of rest. ?? Drink 8 - 12 glasses of fluid each day. ?? Elevate your legs. ?? Wear a maternity belt for support. Talk to your health care provider if you have questions. If you become concerned about these or any other changes, call your doctor or legal document specialist right away. Dev. 11/14, 09/17, 12/21 ??Néstor Gomez 2016 Dizziness Dizziness is a common problem. It makes you feel unsteady or lightheaded. You may feel like you are about to pass out (faint). Dizziness can lead to injury if you stumble or fall. Anyone can get dizzy, but dizziness is more common in older adults. This condition can be caused by a number of things, including: ???Medicines. ???Dehydration. ???Illness. HOME CARE Following these instructions may help with your condition: Eating and Drinking ???Drink enough fluid to keep your pee (urine) clear or pale yellow. This helps to keep you from getting dehydrated. Try to drink more clear fluids, such as water. ???Do not drink alcohol. ???Limit how much caffeine you drink or eat if told by your doctor. ???Limit how much salt you drink or eat if told by your doctor. Activity ???Avoid making quick movements. ???When you stand up from sitting in a chair, steady yourself until you feel okay. ???In the morning, first sit up on the side of the bed. When you feel okay, stand slowly while you hold onto something. Do this until you know that your balance is fine. ???Move your legs often if you need to evening sitter one place for a long time. Tighten and relax your muscles in your legs while you are standing. ???Do not drive or use heavy machinery if you feel dizzy. ???Avoid bending down if you feel dizzy. Place items in your home so that they are easy for you to reach without leaning over. Lifestyle ???Do not use any tobacco products, including cigarettes, chewing tobacco, or electronic cigarettes. If you need help quitting, ask your doctor. ???Try to lower your stress level, such as with yoga or meditation. Talk with your doctor if you need help. General Instructions ???Watch your dizziness for any changes. ???Take medicines only as told by your doctor. Talk with your doctor if you think that your dizziness is caused by a medicine that you are taking. ???Tell a friend or a family member that you are feeling dizzy. If he or she notices any changes in your behavior, have this person call your doctor. ???Keep all follow-up visits as told by your doctor. This is important. GET HELP IF: ???Your dizziness does not go away. ???Your dizziness or light-headedness gets worse. ???You feel sick to your stomach (nauseous). ???You have trouble hearing. ???You have new symptoms. ???You are unsteady on your feet or you feel like the room is spinning. GET HELP RIGHT AWAY IF: ???You throw up (vomit) or have diarrhea and are unable to eat or drink anything. ???You have trouble: ???Talking. ???Walking. ???Swallowing. ???Using your arms, hands, or legs. ???You feel generally weak. ???You are not thinking clearly or you have trouble forming sentences. It may take a friend or family member to notice this. ???You have: ???Chest pain. ???Pain in your belly (abdomen). ???Shortness of breath. ???Sweating. ???Your vision changes. ???You are bleeding. ???You have a headache. ???You have neck pain or a stiff neck. ???You have a fever. This information is not intended to replace advice given to you by your health care provider. Make sure you discuss any questions you have with your health care provider. Document Released: 04/12/2012 Document Revised: 09/08/2015 Document Reviewed: 04/20/2015 Elsevier Interactive Patient Education ?2016 [employer]. PATIENT DISCHARGE INSTRUCTION Signature Page for: ISIDRA ZALDIVAR Date/Time: 09/03/2018 05:33:37 A Clinician has explained the information on my discharge instructions and has provided me with a copy. My questions have been answered to my satisfaction. Patient Signature Date/Time Responsible Party Date/Time Relationship to Patient __ Clinician Signature Date/Time ___ Normal [facility] Urinalysis Microscopicon Bacteria LM.HPF #/area (Urine sed) MANY Abnormal NONE/HPF [facility] Comment on above: Performed By: #### 5 8077-9, 40175-5 #### [facility], [address] [place] [address]. Epithelial cells.squamous LM.HPF #/area (Urine sed) MANY Abnormal FEW/LPF [facility] Comment on above: Performed By: #### 5 8077-9, 68764-5 #### [facility], [address] [place] [address]. Mucus Ql (Urine sed) OCCASSNL Abnormal NONE/LPF [facility] Comment on above: Performed By: #### 5 8077-9, 07607-9 #### [facility], [address] [place] [address]. RBC LM.HPF #/area (Urine sed) 21 /[HPF] High 0-5 [facility] Comment on above: Performed By: #### Paloma 8077-9, 40854-7 #### [facility], [address] [place] [address]. WBC Urine 34 /hpf High 0-5 [facility] Comment on above: Performed By: #### 5 8077-9, 78615-1 #### [facility], [address] [place] [address]. Urinalysis with Microscopic Automatic with Reflexon 09-03-2018 Appearance Nom (U) TURBID Abnormal CLEAR [facility] Comment on above: Performed By: #### 5 8077-9, 36288-7 #### [facility], [address] [place] [address]. Bilirubin Test strip mass conc (U) 4MG/DL Abnormal NEGATIVE [facility] Comment on above: Performed By: #### 5 8077-9, 63592-6 #### [facility], [address] [place] [address]. Color Nom (U) SUKI Normal YELLOW [facility] Comment on above: Performed By: #### 5 8077-9, 07888-5 #### [facility], [address] [place] [address]. Glucose Test strip mass conc (U) NORMAL Normal NORMAL [facility] Comment on above: Performed By: #### 5 8077-9, 49717-9 #### [facility], [address] [place] [address]. Hemoglobin Ql (U) Negative Normal NEGATIVE [facility] Comment on above: Performed By: #### 5 8077-9, 81594-3 #### [facility], [address] [place] [address]. Ketones mass conc (U) 80MG/DL Abnormal NEGATIVE [facility] Comment on above: Performed By: #### 5 8077-9, 53670-8 #### [facility], [address] [place] [address]. Leukocyte esterase Test strip Ql (U) 250/UL Abnormal NEGATIVE [facility] Comment on above: Performed By: #### 5 8077-9, 07065-7 #### [facility], [address] [place] [address] Nitrite Test strip mass conc (U) Negative Normal NEGATIVE [facility] Center Comment on above: Performed By: #### 5 8077-9, 78051-7 #### [facility], [address] [place] [address]. pH (U) 6.0 [pH] Normal 4.5-8.0 [facility] Comment on above: Performed By: #### 5 8077-9, 36898-6 #### [facility], [address] [place] [address]. Protein mass conc (U) 100 mg/dL Abnormal NEGATIVE [facility] Comment on above: Performed By: #### 5 8077-9, 18445-5 #### [facility], [address] [place] [address]. Specific gravity Relative Density (U) 1.025 Normal 1.002-1.03 0 [facility] Comment on above: Performed By: #### 5 8077-9, 89841-6 #### [facility], [address] [place] [address]. Urobilinogen Test strip mass conc (U) 4MG/DL Abnormal NORMAL [facility] Comment on above: Performed By: #### 5 8077-9, 34922-8 #### [facility], [address] [place] [address]. Basic Metabolic Panelon - Anion gap molar conc 10.0 mmol/L Normal 6.0-18.0 [facility] Comment on above: Performed By: #### 5 7020-0, 36946-1 #### [facility], [address] [place] [address]. Calcium mass conc 8.0 mg/dL Low 8.9-10.3 [facility] Comment on above: Performed By: #### 5 7020-0, 00265-6 #### [facility], [address] [place] [address]. Chloride molar conc 100 mmol/L Normal 98-107 [facility] Comment on above: Performed By: #### 5 7020-0, 41330-8 #### [facility], [address] [place] [address]. CO2 molar conc 22 mmol/L Normal 22-32 [facility] Comment on above: Performed By: #### 5 7020-0, 51149-6 #### [facility], [address] [place] [address]. Creatinine mass conc 0.34 mg/dL Low 0.60-1.30 [facility] Comment on above: Performed By: #### 5 7020-0, 83768-6 #### [facility], [address] [place] [address]. Glucose mass conc 79 mg/dL Normal 70-99 [facility] Comment on above: Result Comment: U pdated ADA Reference Range A normal fasting glucose concentration is less than 100 mg/dL. An impaired fasting glucose concentration is 100-125 mg/dL. A provisional diagnosis of diabetes mellitus can be made when a fasting glucose concentration is greater than 125 mg/dL. Performed By: #### 5 7020-0, 69170-5 #### [facility], [address] [place] [address]. Potassium molar conc 3.5 mmol/L Low 3.6-5.1 [facility] Comment on above: Performed By: #### 5 7020-0, 11362-8 #### [facility], [address] [place] [address]. Sodium molar conc 132 mmol/L Low 136-145 [facility] Comment on above: Performed By: #### 5 7020-0, 95042-6 #### [facility], [address] [place] [address]. Urea nitrogen mass conc (BldV) 1 mg/dL Low 8-20 [facility] Comment on above: Performed By: #### 5 7020-0, 72339-3 #### [facility], [address] [place] [address]. Patient Summaryon 08-28-2018 Patient Summary PATIENT DISCHARGE INSTRUCTIONS If you are having an emergency and are not able to reach your physician, CALL 911 or go to the nearest emergency room and take this document with you. [facility] 08/28/18 15:51 [address] [place] [address] PATIENT INFORMATION -------- Name: ISIDRA ZALDIVAR Address: [address] [place] [address] Age: 32 Years Phone: [phone] : 1985 12:00 MRN: [id number] Sex: Female Race: White Ethnicity: Not Hispan/Lat [facility]: Obstetric Nurse Unit/Bed: ([place]) [facility] 1D63-08 Admit Date: 08/27/2018 16:34 PCP: Physician, PCP Unknown PHYSICIANS INVOLVED WITH CARE [facility]ending Physicians[facility] - Obstetrics Admitting Physician: Shimon Mccarthy MD - Gynecology, Obstetrics Primary Care Physician:Physician, PCP Unknown,Family Practice,,, - Consults: None found YOU WERE TREATED IN THE HOSPITAL FOR: Hypokalemia ALLERGIES: Phenergan : Reaction:Rash MEASUREMENTS: Last Charted: Weight: 88.80 kg /195 lbs 12 oz ( 08/27/18 16:51:00 ) MEDICATIONS For: ISIDRA ZALDIVAR This is your list of medication(s). Keep it with you at all times. Your doctor may have changed doses, add, held or stopped some of your medications. Please share this information with your family doctor. Carry this list of medications with you in case of an emergency. Update it when medications are stopped, doses are changed, or new medications (including avhx-aoh-fspulkn products) are added. Ask your doctor if you have any questions. THESE ARE THE MEDICATIONS YOU SHOULD BE TAKING famotidine (famotidine 20 mg oral tablet) 1 Tab(s) By Mouth Twice a day. Refills: 5. lurasidone (lurasidone 20 mg oral tablet) 20 Milligram By Mouth once a day for 4 Week(s). with food Follow with psychiatrist for refills. Refills: 1. metoclopramide (metoclopramide 10 mg oral tablet) 1 Tab(s) By Mouth Before Meals - 3 Times a day. Refills: 3. multivitamin, ( Multivitamin) 1 Tab(s) By Mouth once a day. ondansetron (Zofran ODT 4 mg oral tablet, disintegrating) 1 Tab(s) By Mouth every 6 hours as needed Nausea and Vomitting. Refills: 1. potassium chloride (potassium chloride 20 mEq oral tablet, extended release) 1 Tab(s) By Mouth with Breakfast and Dinner for 7 Days. do not crush or chew with a full glass of water with food. Refills: 0. MEDICATION CHANGE DETAILS (Not your Final Home Medication List) During the course of your visit, your home medication list was updated with the most current information. The details of those changes are shown below: NEW MEDICATIONS None UPDATED MEDICATIONS None UNCHANGED MEDICATIONS Other Medications famotidine (famotidine 20 mg oral tablet) 1 Tab(s) By Mouth Twice a day. Refills: 5. Comment lurasidone (lurasidone 20 mg oral tablet) 20 Milligram By Mouth once a day for 4 Week(s). with food Follow with psychiatrist for refills. Refills: 1. Comment metoclopramide (metoclopramide 10 mg oral tablet) 1 Tab(s) By Mouth Before Meals - 3 Times a day. Refills: 3. Comment multivitamin, ( Multivitamin) 1 Tab(s) By Mouth once a day. Comment ondansetron (Zofran ODT 4 mg oral tablet, disintegrating) 1 Tab(s) By Mouth every 6 hours as needed Nausea and Vomitting. Refills: 1. Comment potassium chloride (potassium chloride 20 mEq oral tablet, extended release) 1 Tab(s) By Mouth with Breakfast and Dinner for 7 Days. do not crush or chew with a full glass of water with food. Refills: 0. Comment STOP TAKING THESE MEDICATIONS None DO NOT TAKE UNTIL YOU TALK TO YOUR DOCTOR None NON-MEDICATION PRESCRIPTION SCHEDULING PHONE NUMBER: SELECTED LAB RESULTS Lab Result Order Date Hemoglobin 12.8 gm/dL 08/27/2018 Hematocrit 37.5 % 08/27/2018 WBC Count 12.6 thou/mcL 08/27/2018 Platelet Count 126 thou/mcL 08/27/2018 Sodium Level 132 mMol/L 08/28/2018 Potassium Level 3.5 mMol/L 08/28/2018 Creatinine 0.34 mg/dL 08/28/2018 BUN 1 mg/dL 08/28/2018 Total Bilirubin 0.6 mg/dL 08/27/2018 Glucose Level 79 mg/dL 08/28/2018 ADVANCE DIRECTIVE/HEALTH CARE DECISIONS: Advance Directive/Health Care Decisions Executed by Patient: : No Information Obtained From: Patient Advance Directive Health Care Information Offered: Patient declines DISCHARGE INSTRUCTIONS: Discharge Diet Continue your regular diet. Drink six to eight glasses of liquid each day. Good liquids are water, juices and milk. Limit the amount of caffeine you drink such as coffee, tea, and soda. Discharge Activities Because smoking interferes with wound healing, don't smoke. Your chances of stopping are greatly increased if you use medication or attend a program to help you. Discuss this with your doctor. Notify Physician Come back to the hospital if you have chest pain, shortness of breath, fever or chills, nausea or vomiting or abdominal pains. Come back to the hospital when you have 4 or more pains (contractions) in one hour. Come back to the hospital if you start to leak fluid from your vagina. Come back to the hospital or call your doctor if you have bleeding like a period. If you have any other questions or concerns. SMOKING CESSATION: Tobacco use is the number one preventable cause of and disease. Please stop all use of tobacco. Talk with your physician or call the [employer] at or visit their web site atwww.lungusa.org. You can also contact the [employer] at or visit their web site at www.[employer].org SUICIDE HOTLINE: Your mental and emotional well-being are important. If you are in a mental health crisis, or having thoughts of suicide, please call the nationwide suicide hotline, anytime day or night, at 2-153-909-APAD. Important information about accessing your health information through the [employer] patient portal If you initiated the self-registration process for WSO2 during your stay, please check your personal email for an invitation to enroll in [facility]SO[facility] and complete the steps outlined in the email. If you would prefer to enroll while in the hospital, ask a member of your care team. We would be happy to assist you. If you have already enrolled in WSO[facility], go to [email or web address] to login and access your health information. Thank you for choosing [employer]. PATIENT EDUCATION Common Discomforts of Your body will go through many changes during your . It is hard to know when to worry about these changes, especially if you are a first-time mother. We want you to feel more at ease with the changes you may have and give you knowledge to cope with these discomforts and changes. Some of the common discomforts and changes and ways to relieve them are described below. Abdominal pain is the most common complaint of women when they come to the hospital. There are things you can do daily to prevent some types of abdominal discomfort: ?? Drink 8 to 12 glasses of fluid each day, most of that being water. ?? Empty your bladder often. ?? Eat healthy regular meals with plenty of fruits, vegetables, and fiber. Some women experience round ligament pain, which can be felt in the lower abdomen or one or both groins. This discomfort occurs when the ligaments that support your growing uterus stretch as you progress through your . Things you can do to relieve this pain are: ?? Take a warm bath. ?? Use a heating pad in 15 minute intervals. ?? Wear a maternity belt. ?? Bend towards the pain to ease the stretching. ?? Use pillows to support under your belly and between your legs when lying down. Back pain is another common complaint that most women can expect. Lower back pain can result from the shift in the center of gravity and the shift in your posture as your baby grows. This change causes strain on your back muscles. Lower back pain usually increases with additional pregnancies due to the weakness of the abdominal muscles as the uterus grows. To relieve back pain, you can: ?? Have good posture. ?? Wear supportive low heeled shoes. ?? Wear a maternity belt. ?? Use a heating pad. ?? Take warm baths. ?? Have a massage or back rub. ?? Avoid a lot of bending, lifting or walking without rest. ?? Take Tylenol?? (acetaminophen) as needed - as directed by your health care provider. Vaginal spotting can be normal in some circumstances in . The cervix is made up of many blood vessels and any inflammation of the cervix or vagina can cause bleeding. Vaginal spotting can be expected after intercourse or after a cervical exam. Spotting may also occur with bacterial infections, sexually transmitted infections, or yeast infections. These causes should be treated and resolved quickly. Bleeding heavier than spotting is not normal and you should immediately contact your care provider if this occurs. Nausea is experienced by ?? to 3/4 of all women, but the nausea resolves in 90% of women by about 22 weeks of . Nausea can be caused by hormonal changes, stomach overloading, slowed movement of your intestines, low blood sugar, or emotional factors. Some ways you can prevent and relieve nausea are: ?? Eat small frequent meals every 2 - 3 hours. ?? Eat dry crackers before getting up. ?? Avoid fatty and spicy foods. ?? Drink carbonated beverages such as geri benson. ?? Get enough rest. Dizziness is something women can experience throughout their too. This is often caused by low blood pressure, low blood sugar, or low iron. To help prevent dizziness: ?? Eat small frequent meals to maintain your blood sugar. ?? Take iron supplements as directed by your care provider. ?? Change positions slowly, especially from sitting to standing. Shortness of breath is caused by the increased amounts of hormones during acting on your respiratory system. As your uterus grows, it presses on the diaphragm making it harder to fully expand your lungs and take a deep breath. Standing up and stretching your arms above your head will allow you to take a deep breath. Good posture will also help relieve shortness of breath. Swelling can be caused by impaired circulation and increased pressure in the veins in your legs. To decrease or avoid increased swelling: ?? Avoid wearing tight clothing. ?? Elevate your legs throughout the day. ?? Position yourself on your side when lying down. ?? Wear a maternity belt. Headaches are a common complaint of women. These can be uncomfortable, but are rarely a sign of a serious problem. Headaches usually occur in the first and third trimester of . They can be caused by poor posture, lack of sleep, dehydration, caffeine withdrawal, stress, or low blood sugar. To prevent or relieve headaches: ?? Use relaxation techniques such as slow deep breathing or massage. ?? Reduce stress as much as you can. ?? Take warm baths. ?? Exercise regularly. ?? Eat healthy meals at regular times. ?? Get plenty of rest. ?? Take Tylenol?? (acetaminophen) as needed - as directed by your health care provider. Leg cramps in are thought to be caused by pressure on the pelvic blood vessels by your growing uterus, which can impair blood flow. Leg cramps can also be caused by an imbalance in minerals. Measures to prevent and relieve leg cramps include: ?? Straighten your leg and flex your foot. ?? Put strong pressure on the bottom of your foot. ?? Get regular exercise. ?? Elevate your legs throughout the day. ?? Eat a healthy diet. Many of the common discomforts of can be prevented or relieved with a few easy things you can do every day: ?? Eat regular meals. ?? Get plenty of rest. ?? Drink 8 - 12 glasses of fluid each day. ?? Elevate your legs. ?? Wear a maternity belt for support. Talk to your health care provider if you have questions. If you become concerned about these or any other changes, call your doctor or legal document specialist right away. Dev. 11/14, 09/17, 12/21 ??Néstor Gomez 2016 Antepartum Discharge Instructions Follow the instructions that are marked (X) ? SIGNS OF PRE-ECLAMPSIA (PIH) ?? Sudden onset of moderate to severe headache that does not go away. ?? Changes of your vision or eyesight. ?? Severe upper abdominal pain that continues or gets worse. ?? Sudden swelling of the face and hands. ?? High blood pressure (if you have been instructed to monitor your blood pressure). ? LABOR (LESS THAN 37 WEEKS GESTATION) ?? Drink 8-12 glasses of water a day. ?? Call your doctor if you have any of the following: Increased vaginal discharge Burning and frequent urination More than 6 contractions in 1 hour Cramping or back pain/pressure. ? URINARY TRACT INFECTION ?? Drink 8-12 glasses (about 2-3 liters) of water a day. ?? Call your doctor if you have a temperature of 100.4??F (38 C) or higher. ?? Call your doctor if burning and frequent urination returns after taking all your medication. ?? Call your doctor if back pain occurs. ? ACTIVITY LEVEL ? Bedrest ? Activity as tolerated ? No work or school for days. ? No sexual activity, tub baths, douching and tampons until directed by your doctor. ? FOLLOW-UP INSTRUCTIONS ? Culture was obtained, contact physician for results ? Instructed on Movement counts (Handout given) ? Smoking as well as secondhand smoke causes harm to you and your baby. For help living smoke free there are resources for you. Talk with your healthcare provider or call 3-400-UNCZ-NOW. ? MEDICATIONS ? Prescriptions given ? Prescriptions sent to pharmacy Return to Labor and Delivery if you have any of the following signs or symptoms: ?? Bright red vaginal bleeding.heavier than a period ?? Fever above 101 F (38.3 C). ?? Sudden, severe pain or pain not relieved by medication. ?? Pain, swelling, redness and warmth in legs. ?? If greater than 37 weeks gestation - Uterine contractions every 5 minutes lasting about one minute with increasing strength over an hour. ?? A gush or trickle of watery fluid from the vagina ?? Abdomen that feels continually ??rock hard?? ? Decreased movement of your baby (see Movement handout for additional details) If any of these instructions are different from what your doctor tells you, follow your doctor's orders. PATIENT DISCHARGE INSTRUCTION Signature Page for: ISIDRA ZALDIVAR Date/Time: 08/28/2018 15:51:17 A Clinician has explained the information on my discharge instructions and has provided me with a copy. My questions have been answered to my satisfaction. Patient Signature Date/Time Responsible Party Date/Time Relationship to Patient __ Clinician Signature Date/Time ___ Normal [facility] Progress Noteson 08-28-2018 Protein mass conc Patient: JUAN ZALDIVAR MRN: [id number] Age: 32 years Sex: Female : 1985 Associated Diagnoses: None Author: Ermias Velasco MD Patient feeling a little bit better today. Had one episode of vomiting late morning, and still with continued spitting. Tolerating sips of clears. BP 113/56 P 78 Gen: appears slightly disheveled, speaks slow, baseline from clinic visits Abd: soft, nt Ext: no edema, nt Labs: -K 3.0 -> 3.5 A/P: 32yo G1 at 18/5 weeks gestation with hypokalemia. complicated by schizophrenia and epilepsy, patient stopped all medications with and declining to be restarted at this time. -Potassium now within range. Encouraged either potassium pills or trying slow po intake as patient was refusing both prior -Nausea mostly controlled with zofran and reglan combination; continue at home -counseled on natural and expected course of n/v in , and ptylism -will discharge home Normal [facility] CBCon 08-27-2018 Erythrocyte distribution width Entitic volume (RBC) 15.9 % High 11.0-14.8 [facility] Comment on above: Performed By: #### 5 7020-0, 34357-8 #### [facility], [address] [place] [address]. Hematocrit Volume Fraction (Bld) 37.5 % Normal 35.0-45.0 [facility] Comment on above: Performed By: #### 5 7019-0, 52948-3 #### [facility], [address] [place] [address]. Hemoglobin mass conc (Bld) 12.8 g/dL Normal 12.0-16.0 [facility] Comment on above: Performed By: #### 5 7019-0, 47166-9 #### [facility], [address] [place] [address]. MCH Entitic mass (RBC) 29.3 Picograms Normal 27.0-34.0 [facility] Comment on above: Performed By: #### 5 7019-0, 31893-5 #### [facility], [address] [place] [address]. MCHC mass conc (RBC) 34.2 g/dL Normal 32.0-36.0 [facility] Comment on above: Performed By: #### 5 7019-0, 60126-3 #### [facility], [address] [place] [address]. MCV Entitic volume (RBC) 85.8 fL Normal 80.0-97.0 [facility] Comment on above: Performed By: #### 5 7019-0, 91248-4 #### [facility], [address] [place] [address]. Platelet mean volume Entitic volume (Bld) 11.3 fL Normal 6.2-12.1 [facility] Comment on above: Performed By: #### 5 20-0, 30055-9 #### [facility], [address] [place] [address]. Platelets #/vol (Bld) 126 thou/mcL Low 142-424 M [facility] Comment on above: Performed By: #### 5 7020-0, 12874-8 #### [facility], [address] [place] [address]. RBC #/vol (Bld) 4.37 million/mcL Normal 3.80-5.10 [facility] Comment on above: Performed By: #### 5 7020-0, 41101-6 #### [facility], [address] [place] [address]. WBC #/vol (Bld) 12.6 thou/mcL High 4.6-10.2 [facility] Comment on above: Performed By: #### Paloma 7020-0, 45385-6 #### [facility], [address] [place] [address]. Comprehensive Metabolic Pane dora 08-27-2018 Albumin mass conc 2.4 g/dL Low 3.5-4.8 [facility] Comment on above: Performed By: #### 5 7020-0, 74480-8 #### [facility], [address] [place] [address]. ALP enzyme act/vol 89 Units/L Normal 32-91 [facility] Comment on above: Performed By: #### Paloma 7020-0, 51082-9 #### [facility], [address] [place] [address]. ALT enzyme act/vol 52 Units/L Normal 14-63 [facility] Comment on above: Performed By: #### 5 7020-0, 27525-6 #### [facility], [address] [place] [address]. Anion gap molar conc 12.0 mmol/L Normal 6.0-18.0 [facility] Comment on above: Performed By: #### 5 7020-0, 08880-0 #### [facility], [address] [place] [address]. AST enzyme act/vol 56 Units/L High 15-41 [facility] Comment on above: Performed By: #### 5 7020-0, 51211-4 #### [facility], [address] [place] [address]. Bilirubin mass conc 0.6 mg/dL Normal 0.3-1.2 [facility] Comment on above: Performed By: #### 5 7020-0, 02207-8 #### [facility], [address] [place] [address]. Calcium mass conc 8.2 mg/dL Low 8.9-10.3 [facility] Comment on above: Performed By: #### 5 7020-0, 01079-7 #### [facility], [address] [place] [address]. Chloride molar conc 100 mmol/L Normal 98-107 [facility] Comment on above: Performed By: #### 5 7020-0, 77984-6 #### [facility], [address] [place] [address]. CO2 molar conc 19 mmol/L Low 22-32 [facility] Comment on above: Performed By: #### 5 7020-0, 34651-5 #### [facility], [address] [place] [address]. Creatinine mass conc 0.37 mg/dL Low 0.60-1.30 [facility] Comment on above: Performed By: #### 5 7020-0, 67214-1 #### [facility], [address] [place] [address]. Glucose mass conc 91 mg/dL Normal 70-99 [facility] Comment on above: Result Comment: U pdated ADA Reference Range A normal fasting glucose concentration is less than 100 mg/dL. An impaired fasting glucose concentration is 100-125 mg/dL. A provisional diagnosis of diabetes mellitus can be made when a fasting glucose concentration is greater than 125 mg/dL. Performed By: #### 5 7020-0, 52622-3 #### [facility], [address] [place] [address]. Potassium molar conc 3.0 mmol/L Low 3.6-5.1 [facility] Comment on above: Performed By: #### 5 7020-0, 68317-6 #### [facility], [address] [place] [address]. Protein mass conc 5.8 g/dL Low 6.1-7.9 [facility] Center Comment on above: Performed By: #### 5 7020-0, 87560-1 #### [facility], [address] [place] [address]. Sodium molar conc 131 mmol/L Low 136-145 [facility] Comment on above: Performed By: #### 5 7020-0, 80260-9 #### [facility], [address] [place] [address]. Urea nitrogen mass conc (BldV) 2 mg/dL Low 8-20 [facility] Comment on above: Performed By: #### 5 7020-0, 24145-2 #### [facility], [address] [place] [address]. Culture Urine + Susceptibili tyon 08-27-2018 Bacteria identified Cx Nom (U) [facility] Microbiology PROCEDURE: Culture Urine + Susceptibility SOURCE: Urine BODY SITE: COLLECTED DATE/TIME: 08/27/2018 14:24 EDT RECEIVED DATE/TIME: 08/27/2018 14:24 EDT START DATE/TIME: 08/27/2018 14:24 EDT FREE TEXT SOURCE: URINE-URINE INTERFACED REPORTS Final Report [] Verified Date/Time/Personnel: 08/28/2018 15:00 EDT CONTRIBUTOR_SYSTEM, CO_PN ORGANISMS USUALLY ASSOCIATED WITH VAGINAL,URETHRAL, AND/OR SKIN CONTAMINATION PRESENT. Normal [facility] Comment on above: Performed By: #### 5 7020-0, 88361-2 #### [facility], [address] [place] [address]. GFRaaon 08-27-2018 GFR/1.73 sq M predicted among blacks MDRD vol rate/area (S/P/Bld) mL/min/{1.73_m2} [facility] Comment on above: Result Comment: The MDRD equation has not been validated for those over 70 years, women, patients with serious co-morbid conditions, or with extremes of body size, muscle mass of nutritional status. Performed By: #### 5 7020-0, 17708-1 #### [facility], [address] [place] [address]. GFRbbon 08-27-2018 GFR/1.73 sq M predicted among non-blacks MDRD vol rate/area (S/P/Bld) mL/min/{1.73_m2} Normal [facility] Comment on above: Performed By: #### 5 7020-0, 74768-6 #### [facility], [address] [place] [address]. Magnesium Levelon 08-27-2018 Magnesium mass conc 1.4 mg/dL Low 1.8-2.5 [facility] Comment on above: Performed By: #### 5 7020-0, 16038-4 #### [facility], [address] [place] [address]. Progress Noteson 08-27-2018 Protein mass conc Patient: JUAN ZALDIVAR MRN: ([id number] Age: 32 years Sex: Female : 1985 Associated Diagnoses: None Author: Jesse BARROW , Ray Grayson Supervising Physician Comments Documentation By: Allied Health Professional. Comments Labs reviewed and K low at 3.0 Patient also continues to spit into trash can Will replace K with KCL IV infusion D/W Dr. Navarro - requests magnesium level and patient to be admitted to AP unit for KCl infusion and for redraw of potassium 4 hours after infusion completed Patient and her s/o updated and in agreement with plan Magnesium level reviewed and is low Will replace with oral magnesium Normal [facility] Protein mass conc Patient: JUAN ZALDIVAR MRN: ([id number] Age: 32 years Sex: Female : 1985 Associated Diagnoses: None Author: Venkata BARROW, Meera Sarmiento Supervising Physician Comments Documentation By: DANIAL. Notified 5, level 4; MSE 1650 Visit Information Triage visit Chief complaint: hyperemesis, no abdominal pain, no vaginal bleeding. Accompanied By: the patient's spouse. Source of History Source of History: the patient. Pt presents to triage from [facility], Dr. Dhillon for K+ level. Pt was admitted 08/15 for critically low levels. Pt admitted she has not been taking her K+ and feeling week. Pt also with hyperemesis, on zofran and reglan, unisom, and pepcid. Pt has only had a sweet tea and water today. Pt denies abdominal pain, vaginal bleeding, or LOF. Pt was stating she had some chest pain walking into hospital, no SOB, but pain in gone now. Past Medical History Active Asthma Bipolar disorder Schizophrenia, acute Seizure Maternal and History Maternal History: age 32 years; 1; para 0. 18.4 weeks gestation. care: was adequate. Expected date of confinement: 01/24/2019. The dates were based on: first trimester ultrasound. Medications taken during this : vitamins. Surgical History Surgical/Procedure Hx Knee ([id number]). Health Status Allergies Allergic Reactions (Selected) Severity Not Documented Phenergan- Rash. Physical Examination Obstetric Exam heart tones 154 per doppler. Contractions noted: none. Obstetric Exam: cervix deferred, uterus within normal limits. HENT/Mouth Head: normocephalic. Neck Exam: supple. Gastrointestinal Exam: abdomen soft, non tender. Neurologic Exam: Alert and oriented x 3. Results Review General results Today's results : POWERNOTE ALL RESULTS 08/27/2018 16:51 EDT Weight 88.8 kg Weight Type Actual Weight Method Standing Weight Lb 195 lbs Weight Oz 12.33 oz Height 167.64 cm Height Ft 5 ft Height in 6 Inch BSA 1.98 m2 Body Mass Index 31.6 kg/m2 Risk Factors, Antepartum Current Preg Other: ongoing low potassium, hx, addiction ( pain medication) OBHx 1 Movement Present Known or Suspected Infection No Arrival Time 08/27/2018 16:34 Reason for Admission dizzy, chest pain Allergies Reviewed With Patient Latex Allergy No Allergy S and S-Medical/Dental Exam No Allergy S and S-Latex/Rubber Contact No Allergy S and S-Latex Cross-Reactive Foods No Patient Admitted From office Maternal Triage Index 4 - Priority Non-Urgent Contractions, Subjective No Leaking Fluid, Subjective No Vaginal Bleeding No Pt/Partner Travel Last 30d in [place] Area? No OB Triage/Admission-PowerFor m OB Triage/Admission Assessment Form OB Triage/Admission Assessment Form OB Triage/Admission Assessment Form 08/27/2018 16:45 EDT Name of Clinician Contacted O'Jerod CNM, Meera S Reason for Call sBAR acuity 4 Clinician Contacted Via Personal communication via phone Information Provided to Clinician 18.4 chest pain, weakness, dizzy; here with script from office for K level check Response from Clinician No Orders 08/27/2018 16:44 EDT Temperature 97.6 Degrees F NML Temperature Route Oral Pulse Rate 92 BPM NML Respiratory Rate 16 Br PM NML Pulse Oximetry 100 % NML Systolic BP 121 mm Hg NML Diastolic BP 63 mm Hg LOW Is the patient having pain? Yes Pain Score 7 Pain Intensity Scale Numeric Rating Scale-Verbal (Adults) Pain Location Site #1 Chest A FHR Monitoring Method: Doppler (hand held) Heart Rate: 154 BPM FHR Monitoring Frequency: Intermittent Temperature Celsius Calculation 36.4 Degrees C 08/27/2018 16:34 EDT Face Sheet UPDT 2018-08-27 [id number] Impression and Plan Impression and Plan Diagnosis Acute weakness (PKB83-SA R53.1, Working, Medical). Findings 32 yr old, at 18.4 weeks 1. weakness 2. FHTs reassurring per doppler. Plan Narrative Description: Discussed plan of care with Dr. Mccarthy 1. CMP, CBC 2. UA, if ketones will give IV fluids. Normal [facility] Progress Noteson 08-21-2018 Protein mass conc DICTATED BY:DAKOTA SHAY MD SERVICE DATE:08/17/2018 CHIEF COMPLAINT: Off meds. SUBJECTIVE: The patient is a 32-year-old female with history of seizures and schizophrenia. The patient is 16 weeks . She had been taken off of her medications. She was seen in her room. Her was present. She is sitting up in bed. She is alert and oriented to person, place and date. She has been sleeping a lot. She was able to eat some, but has continued to have nausea and has had emesis. She reports diarrhea. She is feeling more alert and a little better physically than yesterday. She does not endorse any significant depression. She denies hopelessness or suicidal ideation. She is not endorsing any current hallucinations. She has some slight paranoia, but no martha delusions. She is anxious, but she is reasonably cooperative. I spoke with her . He was in favor of her going on medication. He seemed to be supportive. MEDICATIONS: Reviewed in the MAR in the chart. ALLERGIES: PHENERGAN. REVIEW OF SYSTEMS: She has some nausea. She reports diarrhea. No chest pain. No shortness of breath. She has had some slight dizziness when she was walking in the [place]. She got lightheaded. She has not been able to eat well. MENTAL STATUS EXAMINATION: The patient is alert and oriented to person, place, date and situation. She is unkempt, but a little better hygiene, cooperative, fairly good eye contact. Speech regular rate, not pressured. Language is intact. Mood depressed, affect restricted range. No suicidal or homicidal ideation. She does not endorse any current hallucinations, less guarded, less paranoia. Thought processes are clear. Associations intact. Fair insight and judgment. Gait is intact. VITAL SIGNS: Temperature 97.9, pulse 65, respirations 16, blood pressure 103/68. DIAGNOSTIC STUDIES: White count 7.2, hemoglobin 12.3, platelets 131,000. IMPRESSION: 1. Schizoaffective disorder. 2. Anxiety. 3. Cannabis use. 4. Sixteen weeks . PLAN: 1. Ongoing workup of syncope. 2. No need for psychiatric hospitalization or pink slip. 3. Recommend that the patient goes back on her seizure medication when possible. 4. I talked to the patient and her about going on Latuda. They seem to be in favor of the medication; however, I will hold off until she is able to take p.o. better since the medication requires food. 5. We will follow and continue to assess. 6. She will need outpatient psychiatric followup. ISIDRA ZALDIVAR Birthdate: 1985 #: [id number] D/08/17/2018 23:48:01 T/08/17/2018 23:58:30 VOICE JOB ID:[id number] [place] thanks you for the opportunity to care for your patient. DID: [id number] Normal [facility] CBCon 08-19-2018 Erythrocyte distribution width Entitic volume (RBC) 15.4 % High 11.0-14.8 [facility] Comment on above: Performed By: #### 6 30-4 #### [place] [address] [place], [place] Hematocrit Volume Fraction (Bld) 31.5 % Low 35.0-45.0 [facility] Comment on above: Performed By: #### 6 30-4 #### [place] [address] [place], [place] Hemoglobin mass conc (Bld) 10.9 g/dL Low 12.0-16.0 [facility] Comment on above: Performed By: #### 6 30-4 #### [place] [address] [place], [place] MCH Entitic mass (RBC) 29.5 Picograms Normal 27.0-34.0 [facility] Comment on above: Performed By: #### 6 30-4 #### [address] MCHC mass conc (RBC) 34.7 g/dL Normal 32.0-36.0 [facility] Comment on above: Performed By: #### 6 30-4 #### [address] MCV Entitic volume (RBC) 85.0 fL Normal 80.0-97.0 [facility] Comment on above: Performed By: #### 6 30-4 #### [address] Platelet mean volume Entitic volume (Bld) 11.7 fL Normal 6.2-12.1 [facility] Comment on above: Performed By: #### 6 30-4 #### [address] Platelets #/vol (Bld) 115 thou/mcL Low 142-424 M [facility] Comment on above: Performed By: #### 6 30-4 #### [address] RBC #/vol (Bld) 3.70 million/mcL Low 3.80-5.10 [facility] Comment on above: Performed By: #### 6 30-4 #### [address] WBC #/vol (Bld) 8.2 thou/mcL Normal 4.6-10.2 [facility] Comment on above: Performed By: #### 6 30-4 #### [facility] [address] [place], [place] Comprehensive Metabolic Pane dora 08-19-2018 Albumin mass conc 2.0 g/dL Low 3.5-4.8 [facility] Comment on above: Performed By: #### 6 30-4 #### [facility] [address] [place], [place] ALP enzyme act/vol 64 Units/L Normal 32-91 [facility] Comment on above: Performed By: #### 6 30-4 #### [place] [address] [place] ALT enzyme act/vol 23 Units/L Normal 14-63 [facility] Comment on above: Performed By: #### 6 30-4 #### [place] [address] [place] Anion gap molar conc 8.0 mmol/L Normal 6.0-18.0 [facility] Comment on above: Performed By: #### 6 30-4 #### [address] AST enzyme act/vol 26 Units/L Normal 15-41 [facility] Comment on above: Performed By: #### 6 30-4 #### [place] [address] [place], [place] Bilirubin mass conc 0.6 mg/dL Normal 0.3-1.2 [facility] Comment on above: Performed By: #### 6 30-4 #### [place] [address] [place], [place] Calcium mass conc 7.9 mg/dL Low 8.9-10.3 [facility] Comment on above: Performed By: #### 6 30-4 #### [address] Chloride molar conc 106 mmol/L Normal 98-107 [facility] Comment on above: Performed By: #### 6 30-4 #### [place] [address] [place], [place] CO2 molar conc 21 mmol/L Low 22-32 [facility] Comment on above: Performed By: #### 6 30-4 #### [address] Creatinine mass conc 0.34 mg/dL Low 0.60-1.30 [facility] Comment on above: Performed By: #### 6 30-4 #### [address] Glucose mass conc 80 mg/dL Normal 70-99 [facility] Comment on above: Result Comment: U pdated ADA Reference Range A normal fasting glucose concentration is less than 100 mg/dL. An impaired fasting glucose concentration is 100-125 mg/dL. A provisional diagnosis of diabetes mellitus can be made when a fasting glucose concentration is greater than 125 mg/dL. Performed By: #### 6 30-4 #### [address] Potassium molar conc 3.7 mmol/L Normal 3.6-5.1 [facility] Comment on above: Performed By: #### 6 30-4 #### [address] Protein mass conc 4.5 g/dL Low 6.1-7.9 [facility] Comment on above: Performed By: #### 6 30-4 #### [address] Sodium molar conc 135 mmol/L Low 136-145 [facility] Comment on above: Performed By: #### 6 30-4 #### [address] Urea nitrogen mass conc (BldV) <1 Abnormal 8-20 [facility] Comment on above: Performed By: #### 6 30-4 #### [address] GFRaaon 08-19-2018 GFR/1.73 sq M predicted among blacks MDRD vol rate/area (S/P/Bld) mL/min/{1.73_m2} Normal [facility] Comment on above: Result Comment: The MDRD equation has not been validated for those over 70 years, women, patients with serious co-morbid conditions, or with extremes of body size, muscle mass of nutritional status. Performed By: #### 6 30-4 #### [address] GFRbbon 08-19-2018 GFR/1.73 sq M predicted among non-blacks MDRD vol rate/area (S/P/Bld) mL/min/{1.73_m2} Normal [facility] Comment on above: Performed By: #### 6 30-4 #### [address] Magnesium Levelon 08-19-2018 Magnesium mass conc 1.4 mg/dL Low 1.8-2.5 [facility] Comment on above: Performed By: #### 6 30-4 #### [address] Patient Summaryon 08-19-2018 Patient Summary PATIENT DISCHARGE INSTRUCTIONS If you are having an emergency and are not able to reach your physician, CALL 911 or go to the nearest emergency room and take this document with you. [facility] 08/19/18 20:38 [address] [place] [address] PATIENT INFORMATION -------- Name: ISIDRA ZALDIVAR Address: [address] [place] [address] Age: 32 Years Phone: [phone] : 1985 12:00 MRN: [facility])-[id number] Sex: Female Race: White Ethnicity: Not Hispan/Lat Admitted From: [facility] Medical Service: Obstetric Nurse Unit/Bed: ([facility] [id number] Admit Date: 08/19/2018 19:48 PCP: Physician, PCP Unknown PHYSICIANS INVOLVED WITH CARE Attending Physicians: None found Admitting Physician: None found Primary Care Physician:Physician, PCP Unknown,Family Practice,,, - Consults: None found ALLERGIES: Phenergan : Reaction:Rash MEASUREMENTS: Last Charted: Weight: 101.9 kg /224 lbs 10 oz ( 08/19/18 19:58:00 ) MEDICATIONS For: ISIDRA ZALDIVAR This is your list of medication(s). Keep it with you at all times. Your doctor may have changed doses, add, held or stopped some of your medications. Please share this information with your family doctor. Carry this list of medications with you in case of an emergency. Update it when medications are stopped, doses are changed, or new medications (including beqd-tnx-trvjuyt products) are added. Ask your doctor if you have any questions. THESE ARE THE MEDICATIONS YOU SHOULD BE TAKING doxylamine (Unisom 25 mg oral tablet) 1 Tab(s) By Mouth Bedtime. Refills: 1. famotidine (famotidine 20 mg oral tablet) 1 Tab(s) By Mouth Twice a day. Refills: 5. lurasidone (lurasidone 20 mg oral tablet) 20 Milligram By Mouth once a day for 4 Week(s). with food Follow with psychiatrist for refills. Refills: 1. metoclopramide (metoclopramide 10 mg oral tablet) 1 Tab(s) By Mouth Before Meals - 3 Times a day. Refills: 3. multivitamin, ( Multivitamin) 1 Tab(s) By Mouth once a day. ondansetron (Zofran ODT 4 mg oral tablet, disintegrating) 1 Tab(s) By Mouth every 6 hours as needed Nausea and Vomitting. Refills: 1. potassium chloride (potassium chloride 20 mEq oral tablet, extended release) 1 Tab(s) By Mouth with Breakfast and Dinner for 7 Days. do not crush or chew with a full glass of water with food. Refills: 0. MEDICATION CHANGE DETAILS (Not your Final Home Medication List) During the course of your visit, your home medication list was updated with the most current information. The details of those changes are shown below: NEW MEDICATIONS None UPDATED MEDICATIONS None UNCHANGED MEDICATIONS Other Medications doxylamine (Unisom 25 mg oral tablet) 1 Tab(s) By Mouth Bedtime. Refills: 1. Comment famotidine (famotidine 20 mg oral tablet) 1 Tab(s) By Mouth Twice a day. Refills: 5. Comment lurasidone (lurasidone 20 mg oral tablet) 20 Milligram By Mouth once a day for 4 Week(s). with food Follow with psychiatrist for refills. Refills: 1. Comment metoclopramide (metoclopramide 10 mg oral tablet) 1 Tab(s) By Mouth Before Meals - 3 Times a day. Refills: 3. Comment multivitamin, ( Multivitamin) 1 Tab(s) By Mouth once a day. Comment ondansetron (Zofran ODT 4 mg oral tablet, disintegrating) 1 Tab(s) By Mouth every 6 hours as needed Nausea and Vomitting. Refills: 1. Comment potassium chloride (potassium chloride 20 mEq oral tablet, extended release) 1 Tab(s) By Mouth with Breakfast and Dinner for 7 Days. do not crush or chew with a full glass of water with food. Refills: 0. Comment STOP TAKING THESE MEDICATIONS None DO NOT TAKE UNTIL YOU TALK TO YOUR DOCTOR None NON-MEDICATION PRESCRIPTION SCHEDULING PHONE NUMBER: ADVANCE DIRECTIVE/HEALTH CARE DECISIONS: Advance Directive/Health Care Decisions Executed by Patient: : No Information Obtained From: Patient Advance Directive Health Care Information Offered: Patient declines DISCHARGE INSTRUCTIONS: Discharge Diet Regular. Drink six to eight glasses of liquid each day. Good liquids are water, juices and milk. Limit the amount of caffeine you drink such as coffee, tea, and soda. Notify Physician Come back to the hospital if you have chest pain, shortness of breath, fever or chills, nausea or vomiting or abdominal pains. Come back to the hospital when you have 4 or more pains (contractions) in one hour. Come back to the hospital if you start to leak fluid from your vagina. Come back to the hospital or call your doctor if you have bleeding like a period. If you feel the baby moving less, eat or drink something sweet and lay on your left side for one hour. Then if baby doesn't move, call your doctor or the hospital. SUICIDE HOTLINE: Your mental and emotional well-being are important. If you are in a mental health crisis, or having thoughts of suicide, please call the nationwide suicide hotline, anytime day or night, at 0-341-169-VHYU. Important information about accessing your health information through the [facility] portal If you initiated the self-registration process for [facility] during your stay, please check your personal email for an invitation to enroll in [facility] and complete the steps outlined in the email. If you would prefer to enroll while in the hospital, ask a member of your care team. We would be happy to assist you. If you have already enrolled in [facility], go to [email or web address] to login and access your health information. Thank you for choosing [facility]. PATIENT EDUCATION You Can Quit Smoking If you are ready to quit smoking or are thinking about it, congratulations! You have chosen to help yourself be healthier and live longer! There are lots of different ways to quit smoking. Nicotine gum, nicotine patches, a nicotine inhaler, or nicotine nasal spray can help with physical craving. Hypnosis, support groups, and medicines help break the habit of smoking. TIPS TO GET OFF AND STAY OFF CIGARETTES ???Learn to predict your moods. Do not let a bad situation be your excuse to have a cigarette. Some situations in your life might tempt you to have a cigarette. ???Ask friends and co-workers not to smoke around you. ???Make your home smoke-free. ???Never have just one cigarette. It leads to wanting another and another. Remind yourself of your decision to quit. ???On a card, make a list of your reasons for not smoking. Read it at least the same number of times a day as you have a cigarette. Tell yourself everyday, I do not want to smoke. I choose not to smoke. ???Ask someone at home or work to help you with your plan to quit smoking. ???Have something planned after you eat or have a cup of coffee. Take a walk or get other exercise to perk you up. This will help to keep you from overeating. ???Try a relaxation exercise to calm you down and decrease your stress. Remember, you may be tense and nervous the first two weeks after you quit. This will pass. ???Find new activities to keep your hands busy. Play with a pen, coin, or rubber band. Doodle or draw things on paper. ???[place] your teeth right after eating. This will help cut down the craving for the taste of tobacco after meals. You can try mouthwash too. ???Try gum, breath mints, or diet candy to keep something in your mouth. IF YOU SMOKE AND WANT TO QUIT: ???Do not stock up on cigarettes. Never buy a carton. Wait until one pack is finished before you buy another. ???Never carry cigarettes with you at work or at home. ???Keep cigarettes as far away from you as possible. Leave them with someone else. ???Never carry matches or a surgery manager with you. ???Ask yourself, Do I need this cigarette or is this just a reflex?Bet with someone that you can quit. Put cigarette money in a [employer] bank every morning. If you smoke, you give up the money. If you do not smoke, by the end of the week, you keep the money. ???Keep trying. It takes 21 days to change a habit! ???Talk to your doctor about using medicines to help you quit. These include nicotine replacement gum, lozenges, or skin patches. This information is not intended to replace advice given to you by your health care provider. Make sure you discuss any questions you have with your health care provider. Document Released: 02/18/2010 Document Revised: 07/16/2012 Document Reviewed: 02/18/2010 [employer] Patient Education ?2016 [employer]. Labor Information labor is when labor starts before you are 37 weeks . The normal length of is 39 to 41 weeks. CAUSES The cause of labor is not often known. The most common known cause is infection. RISK FACTORS ???Having a history of labor. ???Having your water break before it should. ???Having a placenta that covers the opening of the cervix. ???Having a placenta that breaks away from the uterus. ???Having a cervix that is too weak to hold the baby in the uterus. ???Having too much fluid in the amniotic sac. ???Taking drugs or smoking while . ???Not gaining enough weight while . ???Being younger than 18 and older than 35 years old. ???Having a low income. ???Being . SYMPTOMS ???Period-like cramps, belly (abdominal) pain, or back pain. ???Contractions that are regular, as often as six in an hour. They may be mild or painful. ???Contractions that start at the top of the belly. They then move to the lower belly and back. ???Lower belly pressure that seems to get stronger. ???Bleeding from the vagina. ???Fluid leaking from the vagina. TREATMENT Treatment depends on: ???Your condition. ???The condition of your baby. ???How many weeks you are. Your doctor may have you: ???Take medicine to stop contractions. ???Stay in bed except to use the restroom (bed rest). ???Stay in the hospital. WHAT SHOULD YOU DO IF YOU THINK YOU ARE IN LABOR? Call your doctor right away. You need to go to the hospital right away. HOW CAN YOU PREVENT LABOR IN FUTURE PREGNANCIES?Stop smoking, if you smoke. ???Maintain healthy weight gain. ???Do not take drugs or be around chemicals that are not needed. ???Tell your doctor if you think you have an infection. ???Tell your doctor if you had a labor before. This information is not intended to replace advice given to you by your health care provider. Make sure you discuss any questions you have with your health care provider. Document Released: 07/21/2009 Document Revised: 09/08/2015 Document Reviewed: 05/27/2013 [employer] Interactive Patient Education ?2016 [employer]. Cervicitis Cervicitis is a soreness and swelling (inflammation) of the cervix. Your cervix is located at the bottom of your uterus. It opens up to the vagina. CAUSES ???Sexually transmitted infections (STIs). ?Allergic reaction. ?Medicines or control devices that are put in the vagina. ?Injury to the cervix. ?Bacterial infections. ? RISK FACTORS You are at greater risk if you: ???Have unprotected sexual intercourse. ???Have sexual intercourse with many partners. ???Began sexual intercourse at an early age. ???Have a history of STIs. SYMPTOMS There may be no symptoms. If symptoms occur, they may include: ???Arthur, white, yellow, or bad-smelling vaginal discharge. ?Pain or itching of the area outside the vagina. ?Painful sexual intercourse. ?Lower abdominal or lower back pain, especially during intercourse. ?Frequent urination. ?Abnormal vaginal bleeding between periods, after sexual intercourse, or after menopause. ?Pressure or a heavy feeling in the pelvis. ? DIAGNOSIS Diagnosis is made after a pelvic exam. Other tests may include: ???Examination of any discharge under a microscope (wet prep). ?A Pap test. ? TREATMENT Treatment will depend on the cause of cervicitis. If it is caused by an STI, both you and your partner will need to be treated. Antibiotic medicines will be given. HOME CARE INSTRUCTIONS ???Do not have sexual intercourse until your health care provider says it is okay. ?Do not have sexual intercourse until your partner has been treated, if your cervicitis is caused by an STI. ?Take your antibiotics as directed. Finish them even if you start to feel better. ? SEEK MEDICAL CARE IF: ???Your symptoms come back. ?You have a fever. ? MAKE SURE YOU: ???Understand these instructions. ???Will watch your condition. ???Will get help right away if you are not doing well or get worse. This information is not intended to replace advice given to you by your health care provider. Make sure you discuss any questions you have with your health care provider. Document Released: 04/24/2006 Document Revised: 04/29/2014 Document Reviewed: 10/16/2013 [employer] Interactive Patient Education ?2016 [employer] Abdominal Pain During Belly (abdominal) pain is common during . Most of the time, it is not a serious problem. Other times, it can be a sign that something is wrong with the . Always tell your doctor if you have belly pain. HOME CARE Monitor your belly pain for any changes. The following actions may help you feel better: ???Do not have sex (intercourse) or put anything in your vagina until you feel better. ???Rest until your pain stops. ???Drink clear fluids if you feel sick to your stomach (nauseous). Do not eat solid food until you feel better. ???Only take medicine as told by your doctor. ???Keep all doctor visits as told. GET HELP RIGHT AWAY IF: ???You are bleeding, leaking fluid, or pieces of tissue come out of your vagina. ???You have more pain or cramping. ???You keep throwing up (vomiting). ???You have pain when you pee (urinate) or have blood in your pee. ???You have a fever. ???You do not feel your baby moving as much. ???You feel very weak or feel like passing out. ???You have trouble breathing, with or without belly pain. ???You have a very bad headache and belly pain. ???You have fluid leaking from your vagina and belly pain. ???You keep having watery poop (diarrhea). ???Your belly pain does not go away after resting, or the pain gets worse. MAKE SURE YOU: ???Understand these instructions. ???Will watch your condition. ???Will get help right away if you are not doing well or get worse. This information is not intended to replace advice given to you by your health care provider. Make sure you discuss any questions you have with your health care provider. Document Released: 04/12/2010 Document Revised: 12/25/2013 Document Reviewed: 11/21/2013 Elsevier Interactive Patient Education ?2016 [employer] PATIENT DISCHARGE INSTRUCTION Signature Page for: ISIDRA ZALDIVAR Date/Time: 08/19/2018 20:38:25 A Clinician has explained the information on my discharge instructions and has provided me with a copy. My questions have been answered to my satisfaction. Patient Signature Date/Time Responsible Party Date/Time Relationship to Patient __ Clinician Signature Date/Time ___ Normal [facility] Patient Summary PATIENT DISCHARGE INSTRUCTIONS If you are having an emergency and are not able to reach your physician, CALL 911 or go to the nearest emergency room and take this document with you. [facility] 08/19/18 14:08 [facility] [place]. [address] PATIENT INFORMATION -------- Name: ISIDRA ZALDIVAR Address: [address] [address] Age: 32 Years Phone: [phone] : 1985 12:00 MRN: [id number] Sex: Female Race: White Ethnicity: Not Hispan/Lat Admitted From: [facility] Medical Service: Obstetric Nurse Unit/Bed: (CO) ONCT 1F54-22 Admit Date: 08/15/2018 18:49 PCP: Physician, PCP Unknown PHYSICIANS INVOLVED WITH CARE Attending Physicians: Rod PICKERING , Ermias - Obstetrics Admitting Physician: Rod PICKERING , Ermias Cole Obstetrics Primary Care Physician:Physician, PCP Unknown,Family Practice,,, - Consults: Antwon PICKERING , Roxy Bright - Santhosh Shay MD , Dakota Cole Psychiatry Yonathan PICKERING , Kamala Anderson - Gynecology, Obstetrics FOLLOW-UP APPOINTMENTS: Provider: Specialty: Address: Date: PCP Unknown Physician Family Practice Follow-up as needed Comment: Call for an Appointment Provider: Specialty: Address: Date: Follow up with your OB doctor as planned Follow-up as needed Provider: Specialty: Address: Date: Follow up with your psychiatrist for possible changes in Latuda dosing. Follow-up as needed ALLERGIES: Phenergan : Reaction:Rash MEASUREMENTS: Last Charted: Weight: 93.40 kg /205 lbs 15 oz ( 08/16/18 06:42:00 ) MEDICATIONS For: ISIDRA ZALDIVAR This is your list of medication(s). Keep it with you at all times. Your doctor may have changed doses, add, held or stopped some of your medications. Please share this information with your family doctor. Carry this list of medications with you in case of an emergency. Update it when medications are stopped, doses are changed, or new medications (including cwqk-lif-wjvnwdl products) are added. Ask your doctor if you have any questions. THESE ARE THE MEDICATIONS YOU SHOULD BE TAKING doxylamine (Unisom 25 mg oral tablet) 1 Tab(s) By Mouth Bedtime. Refills: 1. famotidine (famotidine 20 mg oral tablet) 1 Tab(s) By Mouth Twice a day. Refills: 5. lurasidone (lurasidone 20 mg oral tablet) 20 Milligram By Mouth once a day for 4 Week(s). with food Follow with psychiatrist for refills. Refills: 1. metoclopramide (metoclopramide 10 mg oral tablet) 1 Tab(s) By Mouth Before Meals - 3 Times a day. Refills: 3. multivitamin, ( Multivitamin) 1 Tab(s) By Mouth once a day. ondansetron (Zofran ODT 4 mg oral tablet, disintegrating) 1 Tab(s) By Mouth every 6 hours as needed Nausea and Vomitting. Refills: 1. potassium chloride (potassium chloride 20 mEq oral tablet, extended release) 1 Tab(s) By Mouth with Breakfast and Dinner for 7 Days. do not crush or chew with a full glass of water with food. Refills: 0. MEDICATION CHANGE DETAILS (Not your Final Home Medication List) During the course of your visit, your home medication list was updated with the most current information. The details of those changes are shown below: NEW MEDICATIONS [facility] [address], [address] [place], [place] [id number], [phone] doxylamine (Unisom 25 mg oral tablet) 1 Tab(s) By Mouth Bedtime. Refills: 1. Comment famotidine (famotidine 20 mg oral tablet) 1 Tab(s) By Mouth Twice a day. Refills: 5. Comment lurasidone (lurasidone 20 mg oral tablet) 20 Milligram By Mouth once a day for 4 Week(s). with food Follow with psychiatrist for refills. Refills: 1. Comment metoclopramide (metoclopramide 10 mg oral tablet) 1 Tab(s) By Mouth Before Meals - 3 Times a day. Refills: 3. Comment potassium chloride (potassium chloride 20 mEq oral tablet, extended release) 1 Tab(s) By Mouth with Breakfast and Dinner for 7 Days. do not crush or chew with a full glass of water with food. Refills: 0. Comment UPDATED MEDICATIONS [facility] [address], [address] [place], [place] [phone], [phone] Start: ondansetron (Zofran ODT 4 mg oral tablet, disintegrating) 1 Tab(s) By Mouth every 6 hours as needed Nausea and Vomitting. Refills: 1. Comment UNCHANGED MEDICATIONS Other Medications multivitamin, ( Multivitamin) 1 Tab(s) By Mouth once a day. Comment STOP TAKING THESE MEDICATIONS None DO NOT TAKE UNTIL YOU TALK TO YOUR DOCTOR None NON-MEDICATION PRESCRIPTION SCHEDULING PHONE NUMBER: SELECTED LAB RESULTS Lab Result Order Date Hemoglobin 10.9 gm/dL 08/19/2018 Hematocrit 31.5 % 08/19/2018 WBC Count 8.2 thou/mcL 08/19/2018 Platelet Count 115 thou/mcL 08/19/2018 Sodium Level 135 mMol/L 08/19/2018 Potassium Level 3.7 mMol/L 08/19/2018 Creatinine 0.34 mg/dL 08/19/2018 BUN Total Bilirubin 0.6 mg/dL 08/19/2018 Glucose Level 80 mg/dL 08/19/2018 ADVANCE DIRECTIVE/HEALTH CARE DECISIONS: Advance Directive/Health Care Decisions Executed by Patient: : No Information Obtained From: Patient Advance Directive Health Care Information Offered: Patient declines SUICIDE HOTLINE: Your mental and emotional well-being are important. If you are in a mental health crisis, or having thoughts of suicide, please call the nationwide suicide hotline, anytime day or night, at 9-389-416-WVNS. Important information about accessing your health information through the [facility] patient portal If you initiated the self-registration process for [facility] during your stay, please check your personal email for an invitation to enroll in [facility] and complete the steps outlined in the email. If you would prefer to enroll while in the hospital, ask a member of your care team. We would be happy to assist you. If you have already enrolled in [facility], go to [email or web address] to login and access your health information. Thank you for choosing [facility]. PATIENT EDUCATION PATIENT DISCHARGE INSTRUCTION Signature Page for: ISIDRA ZALDIVAR Date/Time: 08/19/2018 14:08:34 A Clinician has explained the information on my discharge instructions and has provided me with a copy. My questions have been answered to my satisfaction. Patient Signature Date/Time Responsible Party Date/Time Relationship to Patient __ Clinician Signature Date/Time ___ Normal [facility] Progress Noteson 08-19-2018 Protein mass conc Patient: JUAN ZALDIVAR Age: 32 years Sex: Female : 1985 Associated Diagnoses: None Author: Saul BARROW , Migdalia Aldrich Supervising Physician Comments Documentation By: DANIAL. Notified at 1999. MSE at 2021. Visit Information Triage visit Chief complaint: vaginal bleeding, no abdominal pain, no leakage of fluids, no vaginal discharge. Accompanied By: the patient's spouse. Source of History Source of History: the patient. Patient presents with reports of bleeding after intercourse. She was just discharged from the cardiac step down unit today at 1430 after following an extensive workup from a syncopal episode she had on 08/15/2018. SEE NOTES AND PROCEDURE REPORTS. Patient states she went home and she and her had intercourse at 1845 and afterwards he noticed blood on himself and on her vagina. Patient states she has not checked after that for more bleeding yet. Patient receives care with Dr. Velasco and her next appointment is 08/27/2018. Noted: patient does appear to be not as dishoveled and chaotic in thought today compared to her presentation on 08/15/2018. Past Medical History Active Asthma Bipolar disorder Schizophrenia, acute Seizure Maternal and History Maternal History: age 32 years; 1; living 0. 17.4 weeks gestation. care: was adequate. Expected date of confinement: 01/24/2019. Relevant past medical history: SEE ABOVE.. Surgical History Surgical/Procedure Hx Knee ([id number]). Health Status Allergies Allergic Reactions (Selected) Severity Not Documented Phenergan- Rash. Physical Examination Obstetric Exam heart tones 152bpm per doppler per RN. Contractions noted: none. Obstetric Exam: EZE 01/24/2019, vagina bleeding (small amount, Small amount of bright red bleeding noted at cervix and cervix is friable, a swab touched to cervix causing more bleeding. ), cervix (dilated 0 cm, effaced 30 %, station -3). Speculum exam: bleeding positive. HENT/Mouth Head: normocephalic. Neck Exam: supple. Cardiovascular Exam: no lower extremity edema. Gastrointestinal Exam: abdomen soft, non tender. Neurologic Exam: Alert and oriented x 3. Results Review General results Today's results : POWERNOTE ALL RESULTS 08/19/2018 20:00 EDT Temperature 97.7 Degrees F NML Temperature Route Oral Pulse Rate 83 BPM NML Respiratory Rate 16 Br PM NML Pulse Oximetry 99 % NML Systolic BP 98 mm Hg NML Diastolic BP 46 mm Hg Impression and Plan Impression and Plan Diagnosis Cervicitis (ODB15-PG N72, Working, Medical). Postcoital bleeding (PQE49-DV N93.0, Working, Medical). Findings 32yo @17.4weeks 1.Postcoital bleeding 2.Cervicitis 3.FHR reassuring for gestational age . Plan Narrative Description: Instructed patient and to be on pelvic rest until her appointment with her OB on 08/27/2018. Both verbalize understanding. Precautions discussed. Discharge to home. Dr. Price updated and agrees. . Normal [facility] CBCon 08-18-2018 Erythrocyte distribution width Entitic volume (RBC) 15.4 % High 11.0-14.8 [facility] Comment on above: Performed By: #### 4 549-2 #### [facility], [address] [place] [address]. Hematocrit Volume Fraction (Bld) 30.7 % Low 35.0-45.0 [facility] Comment on above: Performed By: #### 4 549-2 #### [facility], [address] [place] [address]. Hemoglobin mass conc (Bld) 10.6 g/dL Low 12.0-16.0 [facility] Comment on above: Performed By: #### 4 549-2 #### [facility], [address] [place] [address]. MCH Entitic mass (RBC) 29.3 Picograms Normal 27.0-34.0 [facility] Comment on above: Performed By: #### 4 549-2 #### [facility], [address] [place] [address]. MCHC mass conc (RBC) 34.5 g/dL Normal 32.0-36.0 [facility] Comment on above: Performed By: #### 4 549-2 #### [facility], [address] [place] [address]. MCV Entitic volume (RBC) 85.0 fL Normal 80.0-97.0 [facility] Comment on above: Performed By: #### 4 -2 #### [facility], [address] [place] [address]. Platelet mean volume Entitic volume (Bld) 11.7 fL Normal 6.2-12.1 [facility] Comment on above: Performed By: #### 4 549-2 #### [facility], [address] [place] [address]. Platelets #/vol (Bld) 115 thou/mcL Low 142-424 M [facility] Comment on above: Performed By: #### 4 549-2 #### [facility], [address] [place] [address]. RBC #/vol (Bld) 3.62 million/mcL Low 3.80-5.10 [facility] Comment on above: Performed By: #### 4 549-2 #### [facility], [address] [place] [address]. WBC #/vol (Bld) 7.5 thou/mcL Normal 4.6-10.2 [facility] Comment on above: Performed By: #### 4 549-2 #### [facility], [address] [place] [address]. Comprehensive Metabolic Pane dora 08-18-2018 Albumin mass conc 2.0 g/dL Low 3.5-4.8 [facility] Comment on above: Performed By: #### 4 549-2 #### [facility], [address] [place] [address]. ALP enzyme act/vol 63 Units/L Normal 32-91 [facility] Comment on above: Performed By: #### 4 549-2 #### [facility], [address] [place] [address]. ALT enzyme act/vol 22 Units/L Normal 14-63 [facility] Comment on above: Performed By: #### 4 549-2 #### [facility], [address] [place] [address]. Anion gap molar conc 8.0 mmol/L Normal 6.0-18.0 [facility] Comment on above: Performed By: #### 4 549-2 #### [facility], [address] [place] [address]. AST enzyme act/vol 22 Units/L Normal 15-41 [facility] Comment on above: Performed By: #### 4 549-2 #### [facility], [address] [place] [address]. Bilirubin mass conc 0.4 mg/dL Normal 0.3-1.2 [facility] Comment on above: Performed By: #### 4 549-2 #### [facility], [address] [place] [address]. Calcium mass conc 7.9 mg/dL Low 8.9-10.3 [facility] Comment on above: Performed By: #### 4 549-2 #### [facility], [address] [place] [address]. Chloride molar conc 102 mmol/L Normal 98-107 [facility] Comment on above: Performed By: #### 4 549-2 #### [facility], [address] [place] [address]. CO2 molar conc 25 mmol/L Normal 22-32 [facility] Comment on above: Performed By: #### 4 549-2 #### [facility], [address] [place] [address]. Creatinine mass conc 0.32 mg/dL Low 0.60-1.30 [facility] Comment on above: Performed By: #### 4 549-2 #### [facility] Glucose mass conc 79 mg/dL Normal 70-99 [facility] Comment on above: Result Comment: U pdated ADA Reference Range A normal fasting glucose concentration is less than 100 mg/dL. An impaired fasting glucose concentration is 100-125 mg/dL. A provisional diagnosis of diabetes mellitus can be made when a fasting glucose concentration is greater than 125 mg/dL. Performed By: #### 4 549-2 #### [facility], [address] [place] [address]. Potassium molar conc 2.5 mmol/L Critically abnormal 3.6-5.1 [facility] Comment on above: Result Comment: Crit ical value(s) on tests K called to and read-back by [id number] , at location ONCT by [id number] time called 08/18/18 06:58 LESLIE Performed By: #### 4 549-2 #### [address] Protein mass conc 4.5 g/dL Low 6.1-7.9 [facility] Comment on above: Performed By: #### 4 549-2 #### [address] Sodium molar conc 135 mmol/L Low 136-145 [facility] Comment on above: Performed By: #### 4 549-2 #### [address] Urea nitrogen mass conc (BldV) 1 mg/dL Low 8-20 [facility] Comment on above: Performed By: #### 4 549-2 #### [address] Electroencephalogramon 08-18 EEG study DICTATED BY:CORY CARUSO MD SERVICE DATE:08/16/2018 ELECTROENCEPHALOGRAM HISTORY: The patient is a 32-year-old woman with past medical history of seizure disorder and schizophrenia who was found semi-unresponsive outside of her house. 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 ELECTROENCEPHALOGRAM DESCRIPTION: The EEG was recorded with digital technology utilizing the [employer] 10/20 system. The EEG duration was approximately 30 minutes. The waking background EEG activity was composed primarily 9 Hz. No epileptiform discharges or seizures were seen. Photic stimulation revealed a scattered driving response on certain frequencies. Hyperventilation was not performed. Elements of stage I and stage II sleep were seen. IMPRESSION: This is a normal EEG in wake and sleep state. No epileptiform discharges or seizures are seen. ISIDRA ZALDIVAR Birthdate: 1985 #: [id number] D/08/17/2018 07:38:31 T/08/17/2018 08:45:28 VOICE JOB ID:[id number] [facility] thanks you for the opportunity to care for your patient. DID: [id number] Normal [facility] Magnesium Levelon 08-18-2018 Magnesium mass conc 1.5 mg/dL Low 1.8-2.5 [facility] Comment on above: Performed By: #### 4 549-2 #### [address] Progress Noteson 08-18-2018 Protein mass conc Patient: JUAN ZALDIVAR Age: 32 years Sex: Female : 1985 Associated Diagnoses: None Author: Roxy Rosas MD Assessment Assessment and Plan Impression: 32-year-old 16-week female with a medical history of seizures, not currently on any medications, as well as schizophrenia. She presented to the OB Labor and Delivery Triage with complaint of syncope and collapse, was unwitnessed, and her length of time being down is unknown. An EKG was checked and revealed diffuse ST changes and T-wave inversions that are suspicious to be related to her hypokalemia. She has also been intolerant of oral intake and appears to be suffering from nausea and vomiting related to . With her psychiatric history it is difficult to determine how much of this is hyperemesis syndrome versus some functional vomiting. She abruptly stopped all of her psychiatric meds which also could contribute to her nausea. Recommendations were made for her to be started on Latuda if she was amenable and this was started on 08/18/2018. Diagnoses: 1. Syncope versus seizure, difficult to exclude in this patient. 2. Abnormal EKG, suspected related to electrolyte deficiencies. 3. Hypokalemia. 4. Dehydration. 5. History of seizure disorder. 6. History of schizophrenia. 7. Sixteen weeks . Plan: Is difficult to replace her electrolytes because she refuses both IV and oral potassium replacements. Her potassium is significantly low today. I have counseled her that we need to replace her potassium and if she does not want IV potassium that she need the oral potassium that were giving her. Likely today she does claim her nausea is better. The patient tells me she was abruptly stopped from all of her home antipsychotics and bipolar medications. Appreciate psychiatry consultation. Today she is agreeable to starting Latuda. I also agree that her discontinuing her Lamictal abruptly is worrisome however she does not want to restart this as well. Appreciate OB consultation. Briefly discussed with Dr. Basurto. Once her electrolytes are safely in the normal range and she is tolerating oral intake she can be discharged. The plan will be to discharge the patient home with outpatient OB and psychiatry follow-up if her electrolytes returned normal. If they are not returning normal there will be corrected and she can be discharged once the electrolyte are corrected. Mccann: N/A CVC: N/A Disposition: hopefully 08/19/2018 John Rosas MD [facility] A [id number] or [phone] After 5 pm please use [facility] paging system by calling [phone] Health Status Allergies Allergic Reactions (Selected) Severity Not Documented Phenergan- Rash. Subjective Comments General Condition: the symptoms have improved. The patient describes: fatigue, nausea, no chest pain, no shortness of breath, no fever, no chills. Objective Last Charted Vital Signs Temperature: 97.9 (08/18 09:37) Pulse: 72 (08/18 09:37) Respiration: 16 (08/17 17:09) BP: 100/66 (08/18 09:37) Pulse Ox: 97 (08/18 09:37) Oxygen Delivery: Room air (08/17 09:05) Pain Score: 0 (08/17 09:05) Intake and Output (Previous 24Hrs) I and O Summary Begin date: 08/17 10:36 End date: 08/18 10:36 24 Hour Intake: 1244.00 Output: 1100.00 Balance: 144.00 Last BM: 08/17/18 08:00 Measurements Height: 165.00 cm /64.96 in (Type not Indicated) (08/15/2018 20:27:00) Weight: 93.4 kg/ 205 lbs 14.6 oz (Type not Indicated) (08/16/2018 06:42:00) Body Surface Area: 2.07 m2 Body Mass Index: 34.31 General Exam: Alert and oriented x3, vital signs stable, no acute distress. Appearance: anxious, restless. Respiratory Lungs: clear to auscultation, breath sounds equal, no wheezing. Cardiovascular Exam: no murmur, no lower extremity edema. Rhythm: sinus tachycardia. Gastrointestinal Exam: bowel sounds present, abdomen soft, non tender, no masses palpated. Results Review Labs - Last 36 hours (Max 2 / lab test) CHEMISTRY Sodium 135 (08/18 05:02) 138 (08/17 06:03) Potassium 2.5 (08/18 05:02) 3.1 (08/17 06:03) Chloride 102 (08/18 05:02) 102 (08/17 06:03) CO2 25 (08/18 05:02) 24 (08/17 06:03) Glucose 79 (08/18 05:02) 79 (08/17 06:03) Glucose POCT No result BUN 1 (08/18 05:02) 1 (08/17 06:03) Creatinine 0.32 (08/18 05:02) 0.32 (08/17 06:03) Calcium Total 7.9 (08/18 05:02) 8.2 (08/17 06:03) Magnesium 1.5 (08/18 05:02) 1.7 (08/17 06:03) HEMATOLOGY WBC 7.5 (08/18 05:02) 7.2 (08/17 06:03) RBC 3.62 (08/18 05:02) 4.19 (08/17 06:03) Hb 10.6 (08/18 05:02) 12.3 (08/17 06:03) Hematocrit 30.7 (08/18 05:02) 35.7 (08/17 06:03) Platelets 115 (08/18 05:02) 131 (08/17 06:03) MCV 85.0 (08/18 05:02) 85.1 (08/17 06:03) MCH 29.3 (08/18 05:02) 29.2 (08/17 06:03) RDW 15.4 (08/18 05:02) 15.4 (08/17 06:03) MCHC 34.5 (08/18 05:02) 34.3 (08/17 06:03) Neutrophil Ab No result Monocyte Ab No result Eosinophil Ab No result Basophil Ab No result Lymphocyte Ab No result OTHER LABS Anion Gap 8.0 mMol/L (08/18 05:02) 12.0 mMol/L (08/17 06:03) Est CrCl IBW (mL/min)-RX 228.85 mL/min (08/18 05:02) 228.85 mL/min (08/17 06:03) Est CrCl AdjBW (mL/min)-R 287.56 mL/min (08/18 05:02) 287.56 mL/min (08/17 06:03) GFR Est. Non >60 mL/min (08/17 06:03) >60 mL/min (08/15 16:24) GFR Est. Alba >60 mL/min (08/17 06:03) >60 mL/min (08/15 16:24) Alkaline Phosphatase 63 Units/L (08/18 05:02) 74 Units/L (08/17 06:03) ALT/SGPT 22 Units/L (08/18 05:02) 28 Units/L (08/17 05:03) AST/SGOT 22 Units/L (08/18 05:02) 26 Units/L (08/17 05:03) Bilirubin Total 0.4 mg/dL (08/18 05:02) 0.5 mg/dL (08/17 05:03) Protein 4.5 gm/dL (08/18 05:02) 5.4 gm/dL (08/17 05:03) Albumin Level 2.0 gm/dL (08/18 04:02) 2.4 gm/dL (08/17 05:03) Troponin I <0.03 ng/mL (08/16 04:31) MPV 11.7 FL (08/18 04:02) 11.6 FL (08/17 05:) Segmented Neutrophil Perc 83 % (08/15 16:24) Lymphocyte Percent 10 % (08/15 16:24) Monocyte Percent 4 % (08/16 15:24) Eosinophil Percent 1 % (08/16 15:24) Atypical Lymphocyte 2 % (08/16 15:24) Neutrophil Absolute Calcu 9.55 thou/mcL (08/15 16:24) Anisocytosis 1+ (08/15 16:24) Macrocytes 1+ (08/15 16:24) Microcytes 1+ (08/15 16:24) Polychromasia 1+ (08/16 15:24) Normal [facility] Protein mass conc Patient: JUAN ZALDIVAR MRN: [id number] Age: 32 years Sex: Female : 1985 Associated Diagnoses: None Author: Maria C Basurto MD Supervising Physician Comments Documentation By: OB Hospitalist. Admission Information Reason for Admission: Hyperemesis. Health Status Patient is a 32 yo at 17w2d admitted for HEG, electrolyte abnormalities, EKG changes and syncope. c/b epilepsy and schizophrenia. Has had 2 episodes of emesis over the past 24h. Emesis described as dry heaving. Tolerating PO - water, jello, juice). Reports normal bowel movements. Has refused IV potassium supplementation due to discomfort during infusion. Denies abdominal cramping, VB, abnormal vaginal discharge, dysuria, or LOF. Physical Examination Last Charted Vital Signs Temperature: 98.4 (08/18 05:16) Pulse: 66 (08/18 05:16) Respiration: 16 (08/17 17:09) BP: 93/57 (08/18 05:16) Pulse Ox: 92 (08/18 05:16) Oxygen Delivery: Room air (08/17 09:05) Pain Score: 0 (08/17 09:05) Intake and Output I and O Summary Begin date: 08/17 09:00 End date: 08/18 09:00 24 Hour Intake: 1244.00 Output: 800.00 Balance: 444.00 Last BM: 08/17/18 08:00 General Exam: No acute distress, Alert and Oriented x3. Obstetric Exam: Heart Tones: Doppler. Heart PE: Regular rhythm and rate. Lungs: Clear auscultation. Legs: Nila's sign is: Absent. Results Review General Results Lab Results : LAB 08/18/2018 05:02 EDT Sodium Level 135 mMol/L LOW Potassium Level 2.5 mMol/L CRIT Chloride Level 102 mMol/L Carbon Dioxide Level 25 mMol/L Anion Gap 8.0 mMol/L Glucose Level 79 mg/dL BUN 1 mg/dL LOW Creatinine 0.32 mg/dL LOW Est CrCl IBW (mL/min)-RX 228.85 mL/min Est CrCl AdjBW (mL/min)-RX 287.56 mL/min Calcium Total 7.9 mg/dL LOW Alkaline Phosphatase 63 Units/L ALT/SGPT 22 Units/L AST/SGOT 22 Units/L Bilirubin Total 0.4 mg/dL Protein 4.5 gm/dL LOW Albumin Level 2.0 gm/dL LOW Magnesium Level 1.5 mg/dL LOW WBC Count 7.5 thou/mcL Red Blood Cell Count 3.62 million/mcL LOW Hemoglobin 10.6 gm/dL LOW Hematocrit 30.7 % LOW MCV 85.0 FL MCH 29.3 Picograms MCHC 34.5 gm/dL RDW 15.4 % HI Platelet Count 115 thou/mcL LOW MPV 11.7 FL 08/17/2018 06:03 EDT Sodium Level 138 mMol/L Potassium Level 3.1 mMol/L LOW Chloride Level 102 mMol/L Carbon Dioxide Level 24 mMol/L Anion Gap 12.0 mMol/L Glucose Level 79 mg/dL BUN 1 mg/dL LOW Creatinine 0.32 mg/dL LOW Est CrCl IBW (mL/min)-RX 228.85 mL/min Est CrCl AdjBW (mL/min)-RX 287.56 mL/min GFR Estimated Non >60 mL/min GFR Estimated >60 mL/min Calcium Total 8.2 mg/dL LOW Alkaline Phosphatase 74 Units/L ALT/SGPT 28 Units/L AST/SGOT 26 Units/L Bilirubin Total 0.5 mg/dL Protein 5.4 gm/dL LOW Albumin Level 2.4 gm/dL LOW Magnesium Level 1.7 mg/dL LOW WBC Count 7.2 thou/mcL Red Blood Cell Count 4.19 million/mcL Hemoglobin 12.3 gm/dL Hematocrit 35.7 % MCV 85.1 FL MCH 29.2 Picograms MCHC 34.3 gm/dL RDW 15.4 % HI Platelet Count 131 thou/mcL LOW MPV 11.6 FL 08/16/2018 12:32 EDT Potassium Level 3.2 mMol/L LOW 08/16/2018 05:31 EDT Sodium Level 135 mMol/L LOW Potassium Level 3.2 mMol/L LOW Chloride Level 103 mMol/L Carbon Dioxide Level 24 mMol/L Anion Gap 8.0 mMol/L Glucose Level 108 mg/dL HI BUN <1 mg/dL Creatinine 0.23 mg/dL LOW Est CrCl IBW (mL/min)-RX 318.40 mL/min Est CrCl AdjBW (mL/min)-RX 396.95 mL/min Calcium Total 8.1 mg/dL LOW Alkaline Phosphatase 70 Units/L ALT/SGPT 27 Units/L AST/SGOT 24 Units/L Bilirubin Total 0.7 mg/dL Protein 5.2 gm/dL LOW Albumin Level 2.4 gm/dL LOW Magnesium Level 2.0 mg/dL Troponin I <0.03 ng/mL WBC Count 7.8 thou/mcL Red Blood Cell Count 4.10 million/mcL Hemoglobin 12.0 gm/dL Hematocrit 34.9 % LOW MCV 85.2 FL MCH 29.4 Picograms MCHC 34.5 gm/dL RDW 15.1 % HI Platelet Count 137 thou/mcL LOW MPV 11.9 FL 08/15/2018 16:24 EDT Sodium Level 136 mMol/L Potassium Level 2.7 mMol/L CRIT Chloride Level 99 mMol/L Carbon Dioxide Level 24 mMol/L Anion Gap 13.0 mMol/L Glucose Level 85 mg/dL BUN 2 mg/dL LOW Creatinine 0.42 mg/dL LOW Est CrCl IBW (mL/min)-RX 182.70 mL/min Est CrCl AdjBW (mL/min)-RX 222.37 mL/min GFR Estimated Non >60 mL/min GFR Estimated >60 mL/min Calcium Total 8.6 mg/dL LOW Magnesium Level 1.5 mg/dL LOW WBC Count 11.5 thou/mcL HI Red Blood Cell Count 4.82 million/mcL Hemoglobin 13.8 gm/dL Hematocrit 40.2 % MCV 83.5 FL MCH 28.7 Picograms MCHC 34.4 gm/dL RDW 15.2 % HI Platelet Count 151 thou/mcL MPV 11.5 FL Segmented Neutrophil Percent 83 % HI Lymphocyte Percent 10 % LOW Monocyte Percent 4 % Eosinophil Percent 1 % Atypical Lymphocyte 2 % Neutrophil Absolute Calculated 9.55 thou/mcL HI (Modified) Anisocytosis 1+ Macrocytes 1+ Microcytes 1+ Polychromasia 1+ Color Urine SUKI Appearance Urine HAZY Specific Sterling Urine 1.012 pH Urine 6.0 Glucose Urine NORMAL Ketones Urine 80MG/DL Bilirubin Urine NEGATIVE Blood Urine NEGATIVE Urobilinogen Urine 4MG/DL Leukocyte Esterase Urine 75/UL Nitrite Urine NEGATIVE Protein Urine 30MG/DL WBC Urine 19 /hpf HI RBC Urine <1 /hpf Squamous Epithelial Cells Urine RARE Mucous Urine RARE Culture Urine Culture Urine Impression and Plan Gestational Age: : 1 Para Term: 0 Para : 0 Para Abortions: 0 Para Livin Patient Age: 32 Years EZE: 01/24/2019 EGA:17 weeks 2 days Type: Authoritative Method: Unknown (08/12/2018) . Impression and Plan: Diagnosis: Hyperemesis affecting , antepartum (ZCO31-OX O21.0, Working, Medical), (OHU78-JW Z33.1, Working, Medical), Unwitnessed fall (XDS73-VY R29.6, Working, Medical), Syncope ([id number] R55, Working, Medical). HEG - patient able to tolerate PO (water, jello, juice) - continue reglan 10 mg PO q8h - discontinue zofran 4 mg IV q6h - add zofran 4 mg PO q8h - discontinue compazein 10 mg IV q6h prn - add compazine 10 mg PO q6h prn - discussed the importance of potassium repletion; patient agreeable to IV KCl - reviewed BRAT diet - reviewed expectations of treatment: decrease episodes of emesis to 2-3 x per week, manage nausea so that she is able to maintain PO, she will not be completely void of symptoms well being - positive FHTs today - will repeat FHTs prior to discharge - recommend detailed US in 1 - 2 weeks Mental health disorders - s/p psychiatry consult - agree with plan to treat with Latuda EKG changes - s/p cardiology consult - Echo WNL - replete electrolytes as indicated Epilepsy - hx of lamictal use; ok to resume in the 2nd trimester - recommend neurology consult Normal [facility] CBCon 08-17-2018 Erythrocyte distribution width Entitic volume (RBC) 15.4 % High 11.0-14.8 [facility] Comment on above: Performed By: #### 6 9405-9, [id number], 66085-2 #### [id number] [place], [place] Hematocrit Volume Fraction (Bld) 35.7 % Normal 35.0-45.0 [facility] Comment on above: Performed By: #### 6 9405-9, 96048-0b1, 97559-0 #### [facility] [address] [place], [place] Hemoglobin mass conc (Bld) 12.3 g/dL Normal 12.0-16.0 [facility] Comment on above: Performed By: #### 6 9405-9, 67525-4w7, 82213-7 #### [facility] [address] [place], [place] MCH Entitic mass (RBC) 29.2 Picograms Normal 27.0-34.0 [facility] Comment on above: Performed By: #### 6 9405-9, 44285-4g5, 96188-3 #### [facility] [address], [place] MCHC mass conc (RBC) 34.3 g/dL Normal 32.0-36.0 [facility] Comment on above: Performed By: #### 6 9405-9, 96427-4r6, 66466-6 #### [facility] [address], [place] MCV Entitic volume (RBC) 85.1 fL Normal 80.0-97.0 [facility] Comment on above: Performed By: #### 6 9405-9, 66400-3b9, 89788-6 #### [facility] [address], [place] Platelet mean volume Entitic volume (Bld) 11.6 fL Normal 6.2-12.1 [facility] Comment on above: Performed By: #### 6 9405-9, 96727-3q9, 74971-9 #### [facility] [address], [place] Platelets #/vol (Bld) 131 thou/mcL Low 142-424 M [facility] Comment on above: Performed By: #### 6 9405-9, 64751-2h6, 45932-7 #### [facility] [address], [place] RBC #/vol (Bld) 4.19 million/mcL Normal 3.80-5.10 [facility] Comment on above: Performed By: #### 6 9405-9, 44650-2c7, 96782-8 #### [facility] [address], [place] WBC #/vol (Bld) 7.2 thou/mcL Normal 4.6-10.2 [facility] Comment on above: Performed By: #### 6 9405-9, 87747-6k4, 10858-0 #### [facility] [address], [place] Comprehensive Metabolic Pane dora 08-17-2018 Albumin mass conc 2.4 g/dL Low 3.5-4.8 [facility] Comment on above: Performed By: #### 4 -2 #### [facility], [address] [place] [address]. ALP enzyme act/vol 74 Units/L Normal 32-91 [facility] Comment on above: Performed By: #### 4 -2 #### [facility], [address] [place] [address]. ALT enzyme act/vol 28 Units/L Normal 14-63 [facility] Comment on above: Performed By: #### 4 -2 #### [facility], [address] [place] [address]. Anion gap molar conc 12.0 mmol/L Normal 6.0-18.0 [facility] Comment on above: Performed By: #### 4 -2 #### [facility], [address] [place] [address]. AST enzyme act/vol 26 Units/L Normal 15-41 [facility] Comment on above: Performed By: #### 4 -2 #### [facility], [address] [place] [address]. Bilirubin mass conc 0.5 mg/dL Normal 0.3-1.2 [facility] Comment on above: Performed By: #### 4 -2 #### [facility], [address] [place] [address]. Calcium mass conc 8.2 mg/dL Low 8.9-10.3 [facility] Comment on above: Performed By: #### 4 -2 #### [facility], [address] [place] [address]. Chloride molar conc 102 mmol/L Normal 98-107 [facility] Comment on above: Performed By: #### 4 -2 #### [facility], [address] [place] [address]. CO2 molar conc 24 mmol/L Normal 22-32 [facility] Comment on above: Performed By: #### 4 -2 #### [facility], [address] [place] [address]. Creatinine mass conc 0.32 mg/dL Low 0.60-1.30 [facility] Comment on above: Performed By: #### 4 549-2 #### [facility], [address] [place] [address]. Glucose mass conc 79 mg/dL Normal 70-99 [facility] Comment on above: Result Comment: U pdated ADA Reference Range A normal fasting glucose concentration is less than 100 mg/dL. An impaired fasting glucose concentration is 100-125 mg/dL. A provisional diagnosis of diabetes mellitus can be made when a fasting glucose concentration is greater than 125 mg/dL. Performed By: #### 4 549-2 #### [facility], [address] [place] [address]. Potassium molar conc 3.1 mmol/L Low 3.6-5.1 [facility] Comment on above: Performed By: #### 4 549-2 #### [facility], [address] [place] [address]. Protein mass conc 5.4 g/dL Low 6.1-7.9 [facility] Comment on above: Performed By: #### 4 549-2 #### [facility], [address] [place] [address]. Sodium molar conc 138 mmol/L Normal 136-145 [facility] Comment on above: Performed By: #### 4 549-2 #### [facility], [address] [place] [address]. Urea nitrogen mass conc (BldV) 1 mg/dL Low 8-20 [facility] Comment on above: Performed By: #### 4 549-2 #### [facility], [address] [place] [address]. GFRaaon 08-17-2018 GFR/1.73 sq M predicted among blacks MDRD vol rate/area (S/P/Bld) mL/min/{1.73_m2} Normal [facility] Comment on above: Result Comment: The MDRD equation has not been validated for those over 70 years, women, patients with serious co-morbid conditions, or with extremes of body size, muscle mass of nutritional status. Performed By: #### 6 9405-9, 05533-4t1, 74227-2 #### [address] GFRbbon 08-17-2018 GFR/1.73 sq M predicted among non-blacks MDRD vol rate/area (S/P/Bld) mL/min/{1.73_m2} Normal [facility] Comment on above: Performed By: #### 4 549-2 #### [facility], [address] [place] [address]. Magnesium Levelon 08-17-2018 Magnesium mass conc 1.7 mg/dL Low 1.8-2.5 [facility] Comment on above: Performed By: #### 4 549-2 #### [facility], [address] [place] [address]. Progress Noteson 08-17-2018 Protein mass conc Patient: JUAN ZALDIVAR Age: 32 years Sex: Female : 1985 Associated Diagnoses: None Author: Yonathan PICKERING , Kamala Anderson Supervising Physician Comments Documentation By: OB Hospitalist. Admission Information Reason for Admission: Hyperemesis, Syncope, abnml EKG, electrolyte abnml. pt reports tolerating clears throughout the day (last dose of zofran 00) but has not had any desire to try solids. has frequent spitting but no actual vomiting. ambulated in the halls earlier today with and reports some mild dizziness but has not gotten out of bed since. Health Status Medication List (Selected) Inpatient Medications Ordered Zofran Inj*: 4 mg, IV Push, Q6h. Physical Examination Last Charted Vital Signs Temperature: 98.4 (08/17 13:00) Pulse: 70 (08/17 13:00) Respiration: 18 (08/17 13:00) BP: 98/61 (08/17 13:00) Pulse Ox: 96 (08/17 12:00) Oxygen Delivery: Room air (08/17 09:05) Pain Score: 0 (08/17 09:05) Intake and Output I and O Summary Begin date: 08/16 15:21 End date: 08/17 15:21 24 Hour Intake: 0.00 Output: 0.00 Balance: 0.00 Last BM: 08/17/18 08:00 General Exam: No acute distress, Alert and Oriented x3. Abdomen: soft nontender. Legs: Pedal edema 0 +. Results Review General Results Lab Results : LAB 08/17/2018 06:03 EDT Sodium Level 138 mMol/L Potassium Level 3.1 mMol/L LOW Chloride Level 102 mMol/L Carbon Dioxide Level 24 mMol/L Anion Gap 12.0 mMol/L Glucose Level 79 mg/dL BUN 1 mg/dL LOW Creatinine 0.32 mg/dL LOW Est CrCl IBW (mL/min)-RX 228.85 mL/min Est CrCl AdjBW (mL/min)-RX 287.56 mL/min GFR Estimated Non >60 mL/min GFR Estimated >60 mL/min Calcium Total 8.2 mg/dL LOW Alkaline Phosphatase 74 Units/L ALT/SGPT 28 Units/L AST/SGOT 26 Units/L Bilirubin Total 0.5 mg/dL Protein 5.4 gm/dL LOW Albumin Level 2.4 gm/dL LOW Magnesium Level 1.7 mg/dL LOW WBC Count 7.2 thou/mcL Red Blood Cell Count 4.19 million/mcL Hemoglobin 12.3 gm/dL Hematocrit 35.7 % MCV 85.1 FL MCH 29.2 Picograms MCHC 34.3 gm/dL RDW 15.4 % HI Platelet Count 131 thou/mcL LOW MPV 11.6 FL Impression and Plan Gestational Age: : 1 Para Term: 0 Para : 0 Para Abortions: 0 Para Livin Patient Age: 32 Years EZE: 01/24/2019 EGA:17 weeks 1 day Type: Authoritative Method: Unknown (08/12/2018) . Impression and Plan: Diagnosis: state, incidental Repeated falls Syncope and collapse . Plan: -extensively educated pt and re: HEG -pt trialed on phenergan, zofran and reglan as an outpt but never more than 1med at a time. she had some success with zofran but has a lot of dietary aversions as a result of -discussed scheduled regimen of zofran, pepcid, reglan and unisom and how they all work in different ways to treat different aspects adding to her HEG -extensively counseled on diet expectations and how to maximize nutrition in small frequent meals -answered numerous questions from she and her -encouraged her to increase her ambulation -pt has f/u with primary clinic on 08/27 -from OB standpoint ok for d/c after trialing above meds to see if improves desire to eat and hopefully tolerate reg diet of her choosing. would recommend all meds be given PO to assure tolerance prior to discharge (dose of zofran given today was IV). If medications result in improved appetite/tolerance of small amounts of regular diet, would be ok for discharge. -if pt still admitted in the AM, will reassess how tolerated change in med regimen -pt will need FHTs via doppler prior to discharge mprestonmd. Normal [facility] Protein mass conc Patient: JUAN ZALDIVAR MRN: [id number] Age: 32 years Sex: Female : 1985 Associated Diagnoses: None Author: Juice Bose MD CARDIOLOGY CONSULT PROGRESS NOTE INTERIM HISTORY/ CHIEF COMPLAINT The patient feels good this morning. Denies any chest pain, dyspnea or palpitations. No recurrent dizziness or syncope. PHYSICAL EXAMINATION Vital Signs (Past 36 Hours) Last Charted Minimum Maximum Temperature 97.8 (08/17 09:04) 97.7 (08/16 20:17) 98.5 (08/16 00:13) Pulse 81 (08/17 09:04) 64 (08/17 00:44) 95 (08/16 02:00) Resp 18 (08/17 09:04) 11 (08/16 06:00) 19 (08/16 01:00) Pulse Ox 99 (08/17 09:04) 93 (08/16 17:36) 100 (08/16 12:42) Pain Score 0 (08/17 09:05) 0 (08/17 09:05) 0 (08/17 09:05) BP 101/56 (08/17 09:04) Minimum Maximum Systolic BP 96/56 (08/16 10:00) 121/61 (08/16 20:17) Diastolic BP 97/51 (08/16 04:00) 105/70 (08/17 00:44) Constitutional: The patient is in no distress Chest: Clear to auscultation . Heart: Regular rate and rhythm. S1, S2 normal. No murmurs, clicks, rubs or gallops. There is no jugular venous distension noted. Abdomen: Soft, non-tender. Bowel sounds normal. Extremities: There is trace peripheral edema. No cyanosis. Neurological: The patient is alert and oriented to person, place and time. Skin: No cyanosis. Nails show no clubbing. I have reviewed the Telemtery, I/Os, medications, laboratory data, EKGs and radiology images. Pertinent data is summarized below. Telemetry Tele shows sinus rhythm ASSESSMENT Mrs. Zaldivar is a 32 yo female patient who is at 16-17 weeks of with Schizophrenia and epilepsy not currently on medications because of . She presented on 08/15/2018 with unwitnessed syncope. We are consulted because of unwitnessed syncope and abnormal EKG. - Unwitnessed syncope. Unknown exact etiology. I suspect this is related to orthostasis and dehydration. Cannot rule out seizure given her history. Low suspicion for pulmonary embolus. ECG shows sinus rhythm with diffuse ST-T wave changes but no evidence of preexcitation, long QT or Brugada pattern. So far, there is no documented arrhythmia on her telemetry but cannot rule out arrhythmia the time of syncope related to marked hypokalemia. No evidence of structural heart disease based on physical examination and echocardiogram. - Abnormal EKG showing diffuse ST-T wave changes. This is likely secondary to hypokalemia. Clinical presentation and current clinical status not consistent with acute coronary syndrome. - Severe hypokalemia likely related to nausea, vomiting and poor oral intake. - Schizophrenia, not currently on medications because of . - Epilepsy, not currently on medications because of . RECOMMENDATIONS - Aggressive electrolyte replacement. Please keep potassium above 4.0 and magnesium above 2.0. - No further cardiac testing or intervention is indicated at this time. We will sign off but are available if needed or other cardiac questions come up. Juice Bose MD, FACC Portions of this note were generated using Dragon dictation software. Careful attempts were made at proofreading the note, however unintentional misspellings can occur. DATA REVIEW I and O Summary Begin date: 08/16 11:04 End date: 08/17 11:04 24 Hour Intake: 2330.00 Output: 0.00 Balance: 2330.00 Last BM: 08/17/18 08:00. Labs - Last 36 hours (Max 2 / lab test) CHEMISTRY Sodium 138 (08/17 06:03) 135 (08/16 05:31) Potassium 3.1 (08/17 06:03) 3.2 (08/16 12:32) Chloride 102 (08/17 06:03) 103 (08/16 05:31) CO2 24 (08/17 06:03) 24 (08/16 04:31) Glucose 79 (08/17 06:03) 108 (08/16 04:31) Glucose POCT No result BUN 1 (08/17 06:03) <1 (08/16 04:31) Creatinine 0.32 (08/17 06:03) 0.23 (08/16 04:31) Calcium Total 8.2 (08/17 06:03) 8.1 (08/16 04:) Magnesium 1.7 (08/17 06:03) 2.0 (08/16) HEMATOLOGY WBC 7.2 (08/17 06:03) 7.8 (08/16) RBC 4.19 (08/17 06:03) 4.10 (08/16) Hb 12.3 (08/17 05:03) 12.0 (08/16) Hematocrit 35.7 (08/17 06:03) 34.9 (08/16) Platelets 131 (08/17 06:03) 137 (08/16 04:) MCV 85.1 (08/17 06:03) 85.2 (08/16) MCH 29.2 (08/17 06:03) 29.4 (08/16) RDW 15.4 (08/17 06:03) 15.1 (08/16) MCHC 34.3 (08/17 06:03) 34.5 (08/16) Neutrophil Ab No result Monocyte Ab No result Eosinophil Ab No result Basophil Ab No result Lymphocyte Ab No result OTHER LABS Anion Gap 12.0 mMol/L (08/17 06:03) 8.0 mMol/L (08/16) Est CrCl IBW (mL/min)-RX 228.85 mL/min (08/17 06:03) 318.40 mL/min (08/16 04:) Est CrCl AdjBW (mL/min)-R 287.56 mL/min (08/17 06:03) 396.95 mL/min (08/16 04:) GFR Est. Non >60 mL/min (08/17 05:03) >60 mL/min (08/16 15:24) GFR Est. Alba >60 mL/min (08/17 05:03) >60 mL/min (08/16 15:24) Alkaline Phosphatase 74 Units/L (08/17 05:) 70 Units/L (08/16) ALT/SGPT 28 Units/L (08/17 05:) 27 Units/L (08/16) AST/SGOT 26 Units/L (08/17 05:) 24 Units/L (08/16) Bilirubin Total 0.5 mg/dL (08/17 05:) 0.7 mg/dL (08/16) Protein 5.4 gm/dL (08/17 05:) 5.2 gm/dL (08/16) Albumin Level 2.4 gm/dL (08/17 05:) 2.4 gm/dL (08/16) Troponin I <0.03 ng/mL (08/16) MPV 11.6 FL (08/17 05:) 11.9 FL (08/16) Segmented Neutrophil Perc 83 % (08/16 15:24) Lymphocyte Percent 10 % (08/16 15:24) Monocyte Percent 4 % (08/16 15:24) Eosinophil Percent 1 % (08/16 15:) Atypical Lymphocyte 2 % (08/16 15:24) Neutrophil Absolute Calcu 9.55 thou/mcL (08/16 15:24) Anisocytosis 1+ (08/16 15:24) Macrocytes 1+ (08/16 15:24) Microcytes 1+ (08/16 15:24) Polychromasia 1+ (08/16 15:24) . Inpatient Medications: Pharmacy Communication Order Misc, Comm, Communication, x 30 Day(s),, 08/16/18 9:53:00 EDT Last Dose: Not Given Vitamin- 1 mg FA ( 1+1 GEq) 1 Tab, PO, Tab, Daily, x 30 Day(s),, 08/15/18 20:15:00 EDT , Comment: Contains 1 mg Folic Acid Last Dose: Not Given Acetaminophen 325 mg Tab (Tylenol GEq) 650 mg = 2 Tab, PO, Tab, Q4h, PRN, Pain-Mild/Fever greater than 100.4 (38C), x 30 Day(s), 08/15/18 20:13:00 EDT , Comment: Maximum 4 Gm Acetaminophen/Day for Adults Last Dose: Not Given Acetaminophen 650 mg Suppos (Tylenol GEq) 650 mg = 1 Suppos, Rectal, Suppos, Q4h, PRN, Pain-Mild/Fever greater than 100.4 (38C), x 30 Day(s), 08/15/18 20:13:00 EDT , Comment: Maximum 4 Gm Acetaminophen/Day for Adults Last Dose: Not Given Nitroglycerin Subl Tab 0.4 mg #25 (Nitrostat GEq) 0.4 mg = 1 Tab, Subl, Tab Subl, Q5min, PRN, See Comments, x 30 Day(s), 08/15/18 20:13:00 EDT , Comment: PRN Chest Pain - Administer Q5 min x 3 doses as needed per episode of chest pain. Last Dose: Not Given Current IV Orders: Ondansetron 2 mg/mL Inj 2 mL (Zofran GEq) 4 mg = 2 mL, IV Push, Inject, Q6h, PRN, See Comments, x 30 Day(s), 08/15/18 20:13:00 EDT , Comment: PRN nausea/vomiting. Give first. If ondansetron ineffective, alternate with either Pr Last Dose: 08/17/18 09:15:00 Atropine 1 mg/mL Vial 1 mL 0.5 mg = 0.5 mL, IV Push, Inject, Q3min, PRN, See Comments, x 6 Time(s)/Dose(s), 08/15/18 20:13:00 EDT Last Dose: Not Given Lactated Ringers 1,000 mL 1,000 ml, 100 mL/hr, IV, x 30 Day(s), 1,000 mL, Infusion, 08/16/18 9:47:00 EDT, 93.4 kg Last Dose: 08/17/18 04:59:59 Normal [facility] Protein mass conc Patient: JUAN ZALDIVAR MRN: ([id number] [facility]: [id number] Age: 32 years Sex: Female : 1985 Associated Diagnoses: None Author: Roxy Rosas MD Assessment Assessment and Plan Impression: 32-year-old 16-week female with a medical history of seizures, not currently on any medications, as well as schizophrenia. She presented to the OB Labor and Delivery Triage with complaint of syncope and collapse, was unwitnessed, and her length of time being down is unknown. An EKG was checked and revealed diffuse ST changes and T-wave inversions that are suspicious to be related to her hypokalemia. She has also been intolerant of oral intake and appears to be suffering from nausea and vomiting related to . Diagnoses: 1. Syncope versus seizure, difficult to exclude in this patient. 2. Abnormal EKG, suspected related to electrolyte deficiencies. 3. Hypokalemia. 4. Dehydration. 5. History of seizure disorder. 6. History of schizophrenia. 7. Sixteen weeks . Plan: Correct electrolytes per cardiology recommendations. For some reason her conference of metabolic panel is not returned yet today. The patient tells me she was abruptly stopped from all of her home antipsychotics and bipolar medications. Appreciate psychiatry consultation. Recommendations for possibly starting Latuda. The patient does not want to start any medications. I also agree that her discontinuing her Lamictal abruptly is worrisome however she does not want to restart this as well. She tells me she is going to talk with her today when he comes in and they will decide whether or not they want to try starting Latuda. I reviewed the note from the OB student, I see that an advanced practice nurse from OB signed the students note. Their plan was to hydrate the patient and monitor electrolytes however there is not been OB follow-up since admission. I agree that this is not likely obstetrical emergency however she is having hyperemesis gravidarum it might be prudent for them to follow along. I will reconsult OB if this is not something I can get under control. The plan will be to discharge the patient home with outpatient OB and psychiatry follow-up if her electrolytes returned normal. If they are not returning normal there will be corrected and she can be discharged once the electrolyte are corrected. Mccann: N/A CVC: N/A Disposition: TBD John Rosas MD [facility] A [id number] or [phone] After 5 pm please use [facility] paging system by calling [phone] Health Status Allergies Allergic Reactions (Selected) Severity Not Documented Phenergan- Rash. Subjective Narrative Description: She looks and feels better today. She still having episodes of spitting upShe does not really have significant emesis today.But remains nauseated.She does not want to restart any psychiatric medications. Comments The patient describes: fatigue, no chest pain, no shortness of breath, no fever, no chills. Objective Last Charted Vital Signs Temperature: 97.9 (08/17 05:14) Pulse: 65 (08/17 05:14) Respiration: 16 (08/17 05:14) BP: 103/68 (08/17 05:14) Pulse Ox: 98 (08/17 05:14) Oxygen Delivery: Room air (08/17 05:00) Pain Score: 0 (08/16 10:00) Intake and Output (Previous 24Hrs) I and O Summary Begin date: 08/16 08:52 End date: 08/17 08:52 24 Hour Intake: 2330.00 Output: 0.00 Balance: 2330.00 Last BM: 08/16/18 16:00 Measurements Height: 165.00 cm /64.96 in (Type not Indicated) (08/15/2018 20:27:00) Weight: 93.4 kg/ 205 lbs 14.6 oz (Type not Indicated) (08/16/2018 06:42:00) Body Surface Area: 2.07 m2 Body Mass Index: 34.31 General Exam: Alert and oriented x3, vital signs stable, no acute distress. Appearance: anxious, restless. Respiratory Lungs: clear to auscultation, breath sounds equal, no wheezing. Cardiovascular Exam: no murmur, no lower extremity edema. Rhythm: sinus tachycardia. Gastrointestinal Exam: bowel sounds present, abdomen soft, non tender, no masses palpated. Results Review Labs - Last 36 hours (Max 2 / lab test) CHEMISTRY Sodium 135 (08/16 05:31) Potassium 3.2 (08/16 12:32) 3.2 (08/16 04:) Chloride 103 (08/16 04:) CO2 24 (08/16 04:) Glucose 108 (08/16 04:) Glucose POCT No result BUN <1 (08/16 04:) Creatinine 0.23 (08/16) Calcium Total 8.1 (08/16) Magnesium 2.0 (08/16) HEMATOLOGY WBC 7.2 (08/17 06:03) 7.8 (08/16 04:31) RBC 4.19 (08/17 06:03) 4.10 (08/16 04:) Hb 12.3 (08/17 06:03) 12.0 (08/16 04:) Hematocrit 35.7 (08/17 06:03) 34.9 (08/16 04:) Platelets 131 (08/17 06:03) 137 (08/16 04:) MCV 85.1 (08/17 06:03) 85.2 (08/16 04:31) MCH 29.2 (08/17 06:03) 29.4 (08/16 04:31) RDW 15.4 (08/17 06:03) 15.1 (08/16 04:) MCHC 34.3 (08/17 06:03) 34.5 (08/16 04:31) Neutrophil Ab No result Monocyte Ab No result Eosinophil Ab No result Basophil Ab No result Lymphocyte Ab No result OTHER LABS Anion Gap 8.0 mMol/L (08/16) 13.0 mMol/L (08/16 15:24) Est CrCl IBW (mL/min)-RX 318.40 mL/min (08/16) 182.70 mL/min (08/15) Est CrCl AdjBW (mL/min)-R 396.95 mL/min (08/16) 222.37 mL/min (08/15) GFR Est. Non >60 mL/min (08/15) GFR Est. Alba >60 mL/min (08/15) Alkaline Phosphatase 70 Units/L (08/16) ALT/SGPT 27 Units/L (08/16) AST/SGOT 24 Units/L (08/16) Bilirubin Total 0.7 mg/dL (08/16) Protein 5.2 gm/dL (08/16) Albumin Level 2.4 gm/dL (08/16) Troponin I <0.03 ng/mL (08/16) MPV 11.6 FL (08/17 06:03) 11.9 FL (08/16) Segmented Neutrophil Perc 83 % (08/16 15:) Lymphocyte Percent 10 % (08/15) Monocyte Percent 4 % (08/15) Eosinophil Percent 1 % (08/15) Atypical Lymphocyte 2 % (08/15) Neutrophil Absolute Calcu 9.55 thou/mcL (08/15) Anisocytosis 1+ (08/16 15:) Macrocytes 1+ (08/16 15:24) Microcytes 1+ (08/16 15:) Polychromasia 1+ (08/15) Normal [facility] CBCon 08-16-2018 Erythrocyte distribution width Entitic volume (RBC) 15.1 % High 11.0-14.8 [facility] Comment on above: Performed By: #### 6 9405-9, 96432-3s8, 86799-7 #### [facility] [address], [place] Hematocrit Volume Fraction (Bld) 34.9 % Low 35.0-45.0 [facility] Comment on above: Performed By: #### 6 9405-9, 79940-2q6, 73061-2 #### [facility] [address], [place] Hemoglobin mass conc (Bld) 12.0 g/dL Normal 12.0-16.0 [facility] Comment on above: Performed By: #### 6 9405-9, 67198-6c0, 44470-4 #### [facility] [address], [place] MCH Entitic mass (RBC) 29.4 Picograms Normal 27.0-34.0 [facility] Comment on above: Performed By: #### 6 9405-9, 49378-7e9, 57427-4 #### [facility] [address], [place] MCHC mass conc (RBC) 34.5 g/dL Normal 32.0-36.0 [facility] Comment on above: Performed By: #### 6 9405-9, 96411-6g9, 80427-5 #### [facility] [address], [place] MCV Entitic volume (RBC) 85.2 fL Normal 80.0-97.0 [facility] Comment on above: Performed By: #### 6 9405-9, 46219-4k6, 54138-7 #### [facility] [address], [place] Platelet mean volume Entitic volume (Bld) 11.9 fL Normal 6.2-12.1 [facility] Comment on above: Performed By: #### 6 9405-9, 64365-4p5, 64252-7 #### [facility] [address], [place] Platelets #/vol (Bld) 137 thou/mcL Low 142-424 M [facility] Comment on above: Performed By: #### 6 9405-9, 65223-1t9, 07036-6 #### [facility] [address], [place] RBC #/vol (Bld) 4.10 million/mcL Normal 3.80-5.10 [facility] Comment on above: Performed By: #### 6 9405-9, 74677-3v3, 80559-9 #### [facility] [address], [place] WBC #/vol (Bld) 7.8 thou/mcL Normal 4.6-10.2 [facility] Comment on above: Performed By: #### 6 9405-9, 82949-7f2, 28002-6 #### [facility] [address], [place] Comprehensive Metabolic Pane dora 08-16-2018 Albumin mass conc 2.4 g/dL Low 3.5-4.8 [facility] Comment on above: Performed By: #### 6 9405-9, 91813-6o1, 93232-2 #### [facility] [address], [place] ALP enzyme act/vol 70 Units/L Normal 32-91 [facility] Comment on above: Performed By: #### 6 9405-9, 38723-1p1, 29888-6 #### [facility] [address], [place] ALT enzyme act/vol 27 Units/L Normal 14-63 [facility] Comment on above: Performed By: #### 6 9405-9, 97574-2r8, 40569-2 #### [facility] [address], [place] Anion gap molar conc 8.0 mmol/L Normal 6.0-18.0 [facility] Comment on above: Performed By: #### 6 9405-9, 09531-3v2, 92434-2 #### [facility] [address], [place] AST enzyme act/vol 24 Units/L Normal 15-41 [facility] Comment on above: Performed By: #### 6 9405-9, 24755-4p1, 54342-8 #### [facility] [address], [place] Bilirubin mass conc 0.7 mg/dL Normal 0.3-1.2 [facility] Comment on above: Performed By: #### 6 9405-9, 42585-7r1, 14028-3 #### [facility] [address], [place] Calcium mass conc 8.1 mg/dL Low 8.9-10.3 [facility] Comment on above: Performed By: #### 6 9405-9, 32258-9a8, 85862-7 #### [facility] [address], [place] Chloride molar conc 103 mmol/L Normal 98-107 [facility] Comment on above: Performed By: #### 6 9405-9, 34987-9e9, 78369-5 #### [address] [place], [place] CO2 molar conc 24 mmol/L Normal 22-32 [facility] Comment on above: Performed By: #### 6 9405-9, 48335-7n4, 76727-8 #### [facility] [address] [place], [place] Creatinine mass conc 0.23 mg/dL Low 0.60-1.30 [facility] Comment on above: Performed By: #### 6 9405-9, 46129-5f4, 99473-7 #### [facility] [address], [place] Glucose mass conc 108 mg/dL High 70-99 [facility] Comment on above: Result Comment: U pdated ADA Reference Range A normal fasting glucose concentration is less than 100 mg/dL. An impaired fasting glucose concentration is 100-125 mg/dL. A provisional diagnosis of diabetes mellitus can be made when a fasting glucose concentration is greater than 125 mg/dL. Performed By: #### 6 9405-9, 32805-3s2, 77364-7 #### [facility] [address] [place], [place] Potassium molar conc 3.2 mmol/L Low 3.6-5.1 [facility] Comment on above: Performed By: #### 6 9405-9, 54322-8t6, 84181-6 #### [facility] [address] [place], [place] Protein mass conc 5.2 g/dL Low 6.1-7.9 [facility] Comment on above: Performed By: #### 6 9405-9, 62802-1v7, 75792-8 #### [facility] [address] [place], [place] Sodium molar conc 135 mmol/L Low 136-145 [facility] Comment on above: Performed By: #### 6 9405-9, 60358-5j0, 64317-8 #### [facility] [address] [place], [place] Urea nitrogen mass conc (BldV) <1 Abnormal 8-20 [facility] Comment on above: Performed By: #### 6 9405-9, 48513-3r1, 20646-7 #### [facility] [address] [place], [place] Magnesium Levelon 08-16-2018 Magnesium mass conc 2.0 mg/dL Normal 1.8-2.5 [facility] Comment on above: Performed By: #### 6 9405-9, 97789-5y8, 85998-1 #### [facility] [address] [place], [place] Potassium Levelon 08-16-2018 Potassium molar conc 3.2 mmol/L Low 3.6-5.1 [facility] Comment on above: Performed By: #### 6 9405-9, 72638-2w2, 48956-0 #### [facility] [address] [place], [place] Progress Noteson 08-16-2018 Protein mass conc Patient: JUAN ZALDIVAR MRN: [id number] Age: 32 years Sex: Female : 1985 Associated Diagnoses: None Author: Ralph PICKERING , Roxy Franz Assessment Assessment and Plan Impression: 32-year-old 16-week female with a medical history of seizures, not currently on any medications, as well as schizophrenia. She presented to the OB Labor and Delivery Triage with complaint of syncope and collapse, was unwitnessed, and her length of time being down is unknown. An EKG was checked and revealed diffuse ST changes and T-wave inversions that are suspicious to be related to her hypokalemia. She has also been intolerant of oral intake and appears to be suffering from nausea and vomiting related to . Diagnoses: 1. Syncope versus seizure, difficult to exclude in this patient. 2. Abnormal EKG, suspected related to electrolyte deficiencies. 3. Hypokalemia. 4. Dehydration. 5. History of seizure disorder. 6. History of schizophrenia. 7. Sixteen weeks . Plan: Correct electrolytes per cardiology recommendations. The patient tells me she was abruptly stopped from all of her home antipsychotics and bipolar medications. I am not certain this was truly a recommendation as she claims from her psychiatrist because some of these medications need to be tapered. We will ask psychiatry to see the patient to see if some of her symptoms could be related to abrupt cessation of her chronic psychiatric meds. It is understood that some of her meds have risky categories however abrupt cessation is not often recommended. It is doubtful that she had an actual run of V. tach, according to nursing it is more likely that this was artifact from the patient's movement. Await further recommendations from OB. Ramy: N/A CVC: N/A Disposition: TBD John Rosas MD [facility] A [id number] or [phone] After 5 pm please use [facility] paging system by calling [phone] Subjective Narrative Description: She still feels nauseated. She does not feel like eating.She is no longer dizzy. Comments The patient describes: fatigue, cough, nausea. Objective Last Charted Vital Signs Temperature: 97.8 (08/16 12:42) Pulse: 67 (08/16 12:42) Respiration: 12 (08/16 10:00) BP: 105/63 (08/16 12:42) Activity: Awake (08/16 10:00) Pulse Ox: 100 (08/16 12:42) Oxygen Delivery: Room air (08/16 10:00) Pain Score: 0 (08/16 10:00) Intake and Output (Previous 24Hrs) I and O Summary Begin date: 08/15 13:19 End date: 08/16 13:19 24 Hour Intake: 2723.00 Output: 850.00 Balance: 1873.00 Last BM: No BM Charted Measurements Height: 165.00 cm /64.96 in (Type not Indicated) (08/15/2018 20:27:00) Weight: 93.4 kg/ 205 lbs 14.6 oz (Type not Indicated) (08/16/2018 06:42:00) Body Surface Area: 2.07 m2 Body Mass Index: 34.31 General Exam: Alert and oriented x3, vital signs stable, no acute distress. Appearance: anxious, restless. Respiratory Lungs: clear to auscultation, breath sounds equal, no wheezing. Cardiovascular Exam: no murmur, no lower extremity edema. Rhythm: sinus tachycardia. Gastrointestinal Exam: bowel sounds present, abdomen soft, non tender, no masses palpated. Results Review Labs - Last 36 hours (Max 2 / lab test) CHEMISTRY Sodium 135 (08/16 05:31) 136 (08/15 16:24) Potassium 3.2 (08/16 12:32) 3.2 (08/16 05:31) Chloride 103 (08/16 05:31) 99 (08/15 16:24) CO2 24 (08/16 04:31) 24 (08/15 16:24) Glucose 108 (08/16 05:31) 85 (08/15 16:24) Glucose POCT No result BUN <1 (08/16 04:31) 2 (08/15 16:24) Creatinine 0.23 (08/16 04:31) 0.42 (08/15 16:24) Calcium Total 8.1 (08/16 05:31) 8.6 (08/15 16:24) Magnesium 2.0 (08/16 04:31) 1.5 (08/15 16:24) HEMATOLOGY WBC 7.8 (08/16) 11.5 (08/16 15:24) RBC 4.10 (08/16) 4.82 (08/15) Hb 12.0 (08/16) 13.8 (08/15) Hematocrit 34.9 (08/16) 40.2 (08/15) Platelets 137 (08/16) 151 (08/15) MCV 85.2 (08/16) 83.5 (08/16 15:24) MCH 29.4 (08/16) 28.7 (08/16 15:) RDW 15.1 (08/16) 15.2 (08/15) MCHC 34.5 (08/16) 34.4 (08/15) Neutrophil Ab No result Monocyte Ab No result Eosinophil Ab No result Basophil Ab No result Lymphocyte Ab No result OTHER LABS Anion Gap 8.0 mMol/L (08/16) 13.0 mMol/L (08/16 15:) Est CrCl IBW (mL/min)-RX 318.40 mL/min (08/16) 182.70 mL/min (08/15) Est CrCl AdjBW (mL/min)-R 396.95 mL/min (08/16) 222.37 mL/min (08/16 15:24) GFR Est. Non >60 mL/min (08/15) GFR Est. Alba >60 mL/min (08/15) Alkaline Phosphatase 70 Units/L (08/16) ALT/SGPT 27 Units/L (08/16) AST/SGOT 24 Units/L (08/16) Bilirubin Total 0.7 mg/dL (08/16) Protein 5.2 gm/dL (08/16) Albumin Level 2.4 gm/dL (08/16) Troponin I <0.03 ng/mL (08/16) MPV 11.9 FL (08/16) 11.5 FL (08/15) Segmented Neutrophil Perc 83 % (08/15) Lymphocyte Percent 10 % (08/15) Monocyte Percent 4 % (08/15) Eosinophil Percent 1 % (08/15) Atypical Lymphocyte 2 % (08/15) Neutrophil Absolute Calcu 9.55 thou/mcL (08/15) Anisocytosis 1+ (08/16 15:) Macrocytes 1+ (08/16 15:) Microcytes 1+ (08/16 15:) Polychromasia 1+ (08/15) Health Status Allergies Allergic Reactions (Selected) Severity Not Documented Phenergan- Rash. Normal [facility] Protein mass conc Patient: JUAN ZALDIVAR Age: 32 years Sex: Female : 1985 Associated Diagnoses: None Author: Edi PICKERING , Pricila Lantigua Comments Patient is tearful and complaining of burning from the IV solution of LR with D5W. Interestingly this was not bothersome previously as this solution was running, but became bothersome after the LR was held to give zofran (due to nausea) and then resumed. Slowing the rate did not help. Pharmacy states lidocaine can no longer be added due to hospital policy. The patient also became upset and tearful about discussing changing the IV site to the anti cube (instead of her hand where her IV is currently functioning well) This is a difficult situation. Will trial liquid potassium. Patient was premedicated with Zofran. Patient had a 27 beat run of vtach. She was asymptomatic but frightend by the quick response of staff. Will give IV mag and trial the oral potassium, but if she does not tolerate will need to resume the IV potassium. I also discussed with cardiology, and for now the plan is to correct electrolytes. If recurrs cardiology should be contated tonight. Will transfer patient to ICU. Resumed the IV gtt with potassium and so far is being tolerated. Will give oral liquid potassium. updated. Notified from the ICU nurses that patient did not tolerate liquid potassium and consued 10 MEQ before stopping due to nausea. Nursing also states the patient has been anxious and tearful at times. IV fluids still running. Will trial oral pill potassium 40 MEQ crushed in pudding X 1. Also pt is anxious about a CXR due to radiation exposure. As she has not had CP or respiratory issues, I will cancel for now. Normal [facility] Test Result Ejection Fractio non 08-16-2018 Test Result Ejection Fraction 55-60 Normal [facility] Troponin Ion 08-16-2018 Troponin I.cardiac mass conc ng/mL Normal <0.06 [facility] Comment on above: Performed By: #### 6 9405-9, 95465-8b0, 40527-4 #### [address] [place], [place] Basic Metabolic Panelon 08-06 Anion gap molar conc 13.0 mmol/L Normal 6.0-18.0 [facility] Comment on above: Performed By: #### 6 9405-9, 74551-3k8, 14883-1 #### [address] [place], [place] Calcium mass conc 8.6 mg/dL Low 8.9-10.3 [facility] Comment on above: Performed By: #### 6 9405-9, 70221-5a4, 65302-0 #### [address] [place], [place] Chloride molar conc 99 mmol/L Normal 98-107 [facility] Comment on above: Performed By: #### 6 9405-9, 44428-8s3, 11205-6 #### [address], [place] CO2 molar conc 24 mmol/L Normal 22-32 [facility] Comment on above: Performed By: #### 6 9405-9, 04709-9k9, 03965-0 #### [facility] [address], [place] Creatinine mass conc 0.42 mg/dL Low 0.60-1.30 [facility] Comment on above: Performed By: #### 6 9405-9, 93379-2t1, 23978-7 #### [address], [place] Glucose mass conc 85 mg/dL Normal 70-99 [facility] Comment on above: Result Comment: U pdated ADA Reference Range A normal fasting glucose concentration is less than 100 mg/dL. An impaired fasting glucose concentration is 100-125 mg/dL. A provisional diagnosis of diabetes mellitus can be made when a fasting glucose concentration is greater than 125 mg/dL. Performed By: #### 6 9405-9, 01438-5r5, 41897-0 #### [id number], [place] Potassium molar conc 2.7 mmol/L Critically abnormal 3.6-5.1 [facility] Comment on above: Result Comment: Crit ical value(s) on tests K called to and read-back by [id number] , at location [address] [place] [address] by [id number] time called 08/15/18 17:06. Performed By: #### 6 9405-9, 41355-3t9, 59996-0 #### [facility] [facility] [address], [place] Sodium molar conc 136 mmol/L Normal 136-145 [facility] Comment on above: Performed By: #### 6 9405-9, 77383-3c1, 85472-1 #### [facility] [address], [place] Urea nitrogen mass conc (BldV) 2 mg/dL Low 8-20 [facility] Comment on above: Performed By: #### 6 9405-9, 18448-3z5, 76346-4 #### [address] [place], [place] CBC with Differentialon 08-06 Erythrocyte distribution width Entitic volume (RBC) 15.2 % High 11.0-14.8 [facility] Comment on above: Performed By: #### 6 9405-9, 85864-6j8, 81561-2 #### [address] [place], [place] Hematocrit Volume Fraction (Bld) 40.2 % Normal 35.0-45.0 [facility] Comment on above: Performed By: #### 6 9405-9, 86795-4t8, 77156-5 #### [address] Hemoglobin mass conc (Bld) 13.8 g/dL Normal 12.0-16.0 [facility] Comment on above: Performed By: #### 6 9405-9, 71787-7g1, 42384-1 #### [address] MCH Entitic mass (RBC) 28.7 Picograms Normal 27.0-34.0 [facility] Comment on above: Performed By: #### 6 9405-9, 72601-6f4, 55292-5 #### [address] MCHC mass conc (RBC) 34.4 g/dL Normal 32.0-36.0 [facility] Comment on above: Performed By: #### 6 9405-9, 96156-4a6, 96566-2 #### [address] MCV Entitic volume (RBC) 83.5 fL Normal 80.0-97.0 [facility] Comment on above: Performed By: #### 6 9405-9, 60250-7b1, 20221-0 #### [address] [place], [place] Platelet mean volume Entitic volume (Bld) 11.5 fL Normal 6.2-12.1 [facility] Comment on above: Performed By: #### 6 9405-9, 94759-5g7, 15346-2 #### [facility] [address], [place] Platelets #/vol (Bld) 151 thou/mcL Normal 142-424 [facility] Comment on above: Performed By: #### 6 9405-9, 42991-0g0, 53173-0 #### [facility] [address], [place] RBC #/vol (Bld) 4.82 million/mcL Normal 3.80-5.10 [facility] Comment on above: Performed By: #### 6 9405-9, 79124-0s5, 05583-5 #### [facility] [address], [place] WBC #/vol (Bld) 11.5 thou/mcL High 4.6-10.2 [facility] Comment on above: Performed By: #### 6 9405-9, 88978-7i8, 59842-4 #### [facility] [address], [place] CT Head w/o Contraston 08-15 CT Head WO contrast EXAMINATION TYPE: CT Head w/o Contrast DATE OF EXAM ORDERED: 08/15/2018 5:40 PM HISTORY: Head Trauma, patient fell 16 weeks ago. COMPARISON: NONE FINDINGS: The morphology and density of the brain parenchyma are normal. There is no evidence of hemorrhage or abnormal extra-axial fluid collection. There is no evidence of edema or mass effect. The ventricles are symmetric and centered midline. The sinuses are clear. The orbits and skull base are intact. IMPRESSION: Normal unenhanced CT scan of the brain. [place] thanks you for the opportunity to care for your patient. Workstation ID: [id number] - [id number] FINAL REPORT Dictated By: Jeremias Chavarria MD 08/15/2018 18:12 Assigned Physician: Jeremias Chavarria MD Reviewed and Electronically Signed By: Jeremias Chavarria MD 08/15/2018 18:13 Transcribed by: JUAN 08/15/2018 18:12 Technologist: AHA Normal [facility] Culture Urine + Susceptibili tyon 08-15-2018 Bacteria identified Cx Nom (U) [facility] Microbiology PROCEDURE: Culture Urine + Susceptibility SOURCE: Urine BODY SITE: COLLECTED DATE/TIME: 08/15/2018 16:24 EDT RECEIVED DATE/TIME: 08/15/2018 16:24 EDT START DATE/TIME: 08/15/2018 16:24 EDT FREE TEXT SOURCE: URINE INTERFACED REPORTS Final Report [] Verified Date/Time/Personnel: 08/16/2018 16:15 EDT CONTRIBUTOR_SYSTEM, CO_PN NO GROWTH Normal [facility] Comment on above: Performed By: #### 6 9405-9, 50362-1y1, 25162-8 #### [facility] [address] [place], [place] Differential Manualon 2018 Anisocytosis Ql (Bld) 1+ Normal [facility] Comment on above: Performed By: #### 6 9405-9, 56328-5n8, 03631-2 #### [facility] Eosinophils/100 WBC (Bld) 1 % Normal 0-7 [facility] Comment on above: Performed By: #### 6 9405-9, 89496-0m0, 56918-1 #### [address] Lymphocytes/100 WBC (Bld) 10 % Low 22-44 [facility] Comment on above: Performed By: #### 6 9405-9, 04245-3u6, 03332-1 #### [address] [place], [place] Macrocytes Ql (Bld) 1+ Normal [facility] Comment on above: Performed By: #### 6 9405-9, 22071-7k7, 85999-9 #### [address] [place], [place] Microcytes Ql (Bld) 1+ Normal [facility] Comment on above: Performed By: #### 6 9405-9, 50644-7t4, 85589-3 #### [address] Monocytes/100 WBC (Bld) 4 % Normal 0-12 [facility] Comment on above: Performed By: #### 6 9405-9, 32289-3p7, 71047-5 #### [facility] [address], [place] Neutrophils #/vol (Bld) 9.55 thou/mcL High 1.80-7.70 [facility] Comment on above: Result Comment: CALC ULATION BASED ON THE MANUAL DIFFERENTIAL RESULTS. Performed By: #### 6 9405-9, 31809-6v9, 13119-4 #### [facility] [address], [place] Polychromasia LM Ql (Bld) 1+ Normal [facility] Comment on above: Performed By: #### 6 9405-9, 66635-9p5, 78020-5 #### [facility] [address], [place] Segmented neutrophils/100 WBC (Bld) 83 % High 40-70 [facility] Comment on above: Performed By: #### 6 9405-9, 98142-0z2, 05012-5 #### [address], [place] Variant lymphocytes #/vol (Bld) 2 % Normal [facility] Comment on above: Performed By: #### 6 9405-9, 96369-5f9, 42575-9 #### [facility] [address], [place] GFRaaon 08-15-2018 GFR/1.73 sq M predicted among blacks MDRD vol rate/area (S/P/Bld) mL/min/{1.73_m2} Normal [facility] Comment on above: Result Comment: The MDRD equation has not been validated for those over 70 years, women, patients with serious co-morbid conditions, or with extremes of body size, muscle mass of nutritional status. Performed By: #### 6 9405-9, 12871-8u2, 01273-9 #### [facility] [address], [place] GFRbbon 08-15-2018 GFR/1.73 sq M predicted among non-blacks MDRD vol rate/area (S/P/Bld) mL/min/{1.73_m2} Normal [facility] Comment on above: Performed By: #### 6 9405-9, 10577-8b4, 29885-3 #### [facility] [address], [place] Magnesium Levelon 08-15-2018 Magnesium mass conc 1.5 mg/dL Low 1.8-2.5 [facility] Comment on above: Performed By: #### 6 9405-9, 06877-8f2, 99388-6 #### [facility] [address], [place] Progress Noteson 08-15-2018 Protein mass conc Patient: JUAN ZALDIVAR MRN: ([id number] Age: 32 years Sex: Female : 1985 Associated Diagnoses: None Author: Arnav Desai Supervising Physician Comments Documentation By: Allan MARTIN. Visit Information Triage visit Chief complaint: fall, syncope, no contractions pre-term, no headache, no leakage of fluids, no vaginal bleeding, no vaginal discharge. Accompanied By: significant other. Source of History Source of History: the patient, the patient's significant other. Presents to triage stating that she hit her head and passed out around 1230 today and lost consciousness, stating she woke up to some lady waking her up. Denies CABRAL, visual disturbances or bleeding to head following hitting her head, denies VB, LOF, Vaginal discharge of cramping. Pt states that she was admitted to [facility] recently for IV fluids and IV K+. Pt denies any previous history of syncope to date. Pt reports a personal history of asthma and schizophrenia. Past Medical History Active Asthma Schizophrenia, acute Seizure Maternal and History Maternal History: age 32 years; 1; living 0. 16.6 weeks gestation. Expected date of confinement: 01/24/2019. Relevant past medical history: asthma; Schizophrenia. Health Status Allergies Allergic Reactions (All) Severity Not Documented Phenergan- Rash. Physical Examination Obstetric Exam heart tones 152. Contractions noted: none. Obstetric Exam: EZE 01/24/2019, cervix deferred. HENT/Mouth Head: normocephalic, no abrasions, no ecchymosis, no lacerations. Neck Exam: full range of motion, no stiffness. Neurologic Exam: Alert and oriented x 3. Exam: level of consciousness alert and oriented. Results Review General results Today's results : POWERNOTE ALL RESULTS 08/15/2018 15:25 EDT Temperature 97.8 Degrees F NML Temperature Route Oral Pulse Rate 81 BPM NML Respiratory Rate 16 Br PM NML Pulse Oximetry 99 % NML Systolic BP 110 mm Hg NML Diastolic BP 44 mm Hg Impression and Plan Impression and Plan Diagnosis Syncope ([id number] R55, Working, Medical). Findings 32y/o @16.6 1. FHR appropriate for gestational age 2. Syncope- unwitnessed 3. S/P fall- unwitnessed 4. Dehydration. Plan Narrative Description: CT without contrast EKG CBC, CMP Orthostatic VS UA IV fluid bolus x1L LR Dr. Mcmanus aware of the pt and agrees with plan of care.. Discharge instructions Drink 8 large glasses of water each day. Supervised and agree with assessment and plan. Migdalia Hughes APRN-DANIAL Normal [facility] Urinalysis Microscopicon Epithelial cells.squamous LM.HPF #/area (Urine sed) RARE Normal FEW/LPF [facility] Comment on above: Performed By: #### 6 9405-9, 79100-1o3, 49610-6 #### [facility] [address] [place], [place] Mucus Ql (Urine sed) RARE Abnormal NONE/LPF [facility] Comment on above: Performed By: #### 6 9405-9, 47118-3c1, 04703-2 #### [facility] [address], [place] RBC LM.HPF #/area (Urine sed) /[HPF] Normal 0-5/HPF [facility] Comment on above: Performed By: #### 6 9405-9, 79475-1f2, 77397-0 #### [facility] [address] [place] WBC Urine 19 /hpf High 0-5 [facility] Comment on above: Performed By: #### 6 9405-9, 32932-2v0, 54353-1 #### [facility] [address], [place] Urinalysis with Microscopic Automatic with Reflexon 08-15-2018 Appearance Nom (U) HAZY Abnormal CLEAR [facility] Comment on above: Performed By: #### 6 9405-9, 64510-4o9, 98602-5 #### [facility] [address], [place] Bilirubin Test strip mass conc (U) Negative Normal NEGATIVE [facility] Comment on above: Performed By: #### 6 9405-9, 27519-3z9, 24135-8 #### [facility] [address], [place] Color Nom (U) SUKI Normal YELLOW [facility] Comment on above: Performed By: #### 6 9405-9, 67136-9z6, 05125-0 #### [facility] [address], [place] Glucose Test strip mass conc (U) NORMAL Normal NORMAL [facility] Comment on above: Performed By: #### 6 9405-9, 22038-4m1, 09471-4 #### [facility] [address], [place] Hemoglobin Ql (U) Negative Normal NEGATIVE [facility] Comment on above: Performed By: #### 6 9405-9, 83110-9x7, 90764-6 #### [facility] [address], [place] Ketones mass conc (U) 80MG/DL Abnormal NEGATIVE [facility] Comment on above: Performed By: #### 6 9405-9, 66605-4f1, 38113-3 #### [facility] [address], [place] Leukocyte esterase Test strip Ql (U) 75/UL Abnormal NEGATIVE [facility] Comment on above: Performed By: #### 6 9405-9, 77458-2l0, 07750-0 #### [facility] [address], [place] Nitrite Test strip mass conc (U) Negative Normal NEGATIVE [facility] Comment on above: Performed By: #### 6 9405-9, 74684-6n4, 76638-2 #### [facility] [address] [place] pH (U) 6.0 [pH] Normal 4.5-8.0 [facility] Comment on above: Performed By: #### 6 9405-9, 94675-0e1, 78290-6 #### [facility] [address] [place] Protein mass conc (U) 30 mg/dL Abnormal NEGATIVE [facility] Comment on above: Performed By: #### 6 9405-9, 03470-9s3, 60782-2 #### [facility] [address] [place] Specific gravity Relative Density (U) 1.012 Normal 1.002-1.03 0 [facility] Comment on above: Performed By: #### 6 9405-9, 14672-6b3, 91317-3 #### [address] [place], [place] Urobilinogen Test strip mass conc (U) 4MG/DL Abnormal NORMAL [facility] Comment on above: Performed By: #### 6 9405-9, 46151-0z0, 46627-7 #### [address] [place], [place] Progress Noteson 08-13-2018 Protein mass conc Patient: JUAN ZALDIVAR MRN: [id number] Age: 32 years Sex: Female : 1985 Associated Diagnoses: None Author: Terry Streeter CNM Supervising Physician Comments Documentation By: DANIAL. Visit Information Triage visit Chief complaint: Nausea/vomiting. Accompanied By: the patient's spouse. Source of History Source of History: the patient, the patient's spouse. 32yo at 16.3wks presents with c/o NV and being unable to keep anything down x 4 days. Pt also c/o difficulty walking, and getting frequent muscle cramps in arms. Pt with hx NV throughout this , was taking zofran, recently switched to reglan, after allergic reaction to phenergan. Last dose of reglan was yesterday afternoon- pt reports vomitting 10 minutes after taking dose. Pt with hx osteoarthritis and hx 7 knee surgeries. Pt denies vb, lof, ctx. Pt reports hx substance abuse, quit 3 years ago. PNC at [facility]. Past Medical History Maternal and History Maternal History: age 32 years; 1; para 0. 16.3 weeks gestation. care: was adequate. Expected date of confinement: 01/24/2019. The dates were based on. Medications taken during this : multivitamin, zofran, reglan. Relevant past medical history: asthma; bi-polar, schizophrenia, epileptic seizures. Health Status Allergies Allergic Reactions (All) Severity Not Documented Phenergan- Rash. Physical Examination Vital Signs per Physician Pulse: regular. Respirations: regular. Obstetric Exam heart tones 153bpm per doppler. Contractions noted: none. HENT/Mouth Head: normocephalic. Neck Exam: supple. Respiratory Lungs: clear to auscultation. Breath sounds: equal bilaterally. Cardiovascular Exam: Regular rate and rhythm. Gastrointestinal Exam: bowel sounds present, abdomen soft, non tender. Neurologic Exam: Alert and oriented x 3. Impression and Plan Impression and Plan Diagnosis 16 weeks gestation of (BZT43-VA Z3A.16, Working, Medical). Nausea and vomiting during prior to 22 weeks gestation (EZN76-AT O21.9, Working, Medical). Condition Hemodynamically stable. Findings 32yo at 16.3wks 1. NV in 2. muscle weakness r/t lack of intake 3. FHT +. Plan Narrative Description: 1. CBC, CMP, UA, tox screen 2. IV bolus with LR 3. Zofran Dr. Woods updated and in agreement with POC. Lab results reviewed. Pt with critically low potassium of 2.6. Results discussed with Dr. Woods. Magnesium level added. Orders for NS bolus and 40meq potassium IVPB given. Pt to be moved to antepartum room for OBS during replacement. Pt tolerating food/liquids, feeling a little better. Per plan per Dr. Woods and Deangelo Streeter CNM. If able to tolerate PO after Krider, will give Potassium 40meq PO, send Rx zofran 8mg q 12hrs #20 with no refills to [facility]. Comfort measures and warning signs given to patient. Encouraged to f/u with clinic this week. No cultures pending, no further action needed. Normal [facility] CBC with Differentialon Erythrocyte distribution width Entitic volume (RBC) 15.0 % High 11.0-14.8 [facility] Comment on above: Performed By: #### 5 8077-9, 80810-2 #### [facility], [address] [place] [address]. Hematocrit Volume Fraction (Bld) 42.3 % Normal 35.0-45.0 [facility] Comment on above: Performed By: #### 5 8077-9, 10778-5 #### [facility], [address] [place] [address]. Hemoglobin mass conc (Bld) 14.5 g/dL Normal 12.0-16.0 [facility] Comment on above: Performed By: #### 5 8077-9, 98648-1 #### [facility], [address] [place] [address]. MCH Entitic mass (RBC) 28.7 Picograms Normal 27.0-34.0 [facility] Comment on above: Performed By: #### 5 8077-9, 83081-6 #### [facility], [address] [place] [address]. MCHC mass conc (RBC) 34.3 g/dL Normal 32.0-36.0 [facility] Comment on above: Performed By: #### 5 8077-9, 24805-6 #### [facility], [address] [place] [address]. MCV Entitic volume (RBC) 83.7 fL Normal 80.0-97.0 [facility] Comment on above: Performed By: #### 5 8077-9, 86074-3 #### [facility], [address] [place] [address]. Platelet mean volume Entitic volume (Bld) 11.4 fL Normal 6.2-12.1 [facility] Comment on above: Performed By: #### 5 8077-9, 25952-8 #### [facility], [address] [place] [address]. Platelets #/vol (Bld) 160 thou/mcL Normal 142-424 [facility] Comment on above: Performed By: #### 5 8077-9, 37036-7 #### [facility], [address] [place] [address]. RBC #/vol (Bld) 5.06 million/mcL Normal 3.80-5.10 [facility] Comment on above: Performed By: #### 5 8077-9, 96682-2 #### [facility], [address] [place] [address]. WBC #/vol (Bld) 12.7 thou/mcL High 4.6-10.2 [facility] Comment on above: Performed By: #### 5 8077-9, 73174-4 #### [facility], [address] [place] [address]. Comprehensive Metabolic Pane dora 08-12-2018 Albumin mass conc 3.3 g/dL Low 3.5-4.8 [facility] Comment on above: Performed By: #### 5 8077-9, 52547-3 #### [facility], [address] [place] [address]. ALP enzyme act/vol 103 Units/L High 32-91 [facility] Comment on above: Performed By: #### 5 8077-9, 81407-0 #### [facility] [address] [place] [address]. ALT enzyme act/vol 49 Units/L Normal 14-63 [facility] Comment on above: Performed By: #### 5 8077-9, 69631-4 #### [facility], [address] [place] [address]. Anion gap molar conc 19.0 mmol/L High 6.0-18.0 [facility] Comment on above: Performed By: #### 5 8077-9, 82318-4 #### [facility], [address] [place] [address]. AST enzyme act/vol 47 Units/L High 15-41 [facility] Comment on above: Performed By: #### 5 8077-9, 92929-4 #### [facility], [address] [place] [address]. Bilirubin mass conc 1.4 mg/dL High 0.3-1.2 [facility] Comment on above: Performed By: #### 5 8077-9, 51085-5 #### [facility], [address] [place] [address]. Calcium mass conc 8.9 mg/dL Normal 8.9-10.3 [facility] Comment on above: Performed By: #### 5 8077-9, 38693-1 #### [facility], [address] [place] [address]. Chloride molar conc 95 mmol/L Low 98-107 [facility] Comment on above: Performed By: #### 5 8077-9, 06245-5 #### [facility], [address] [place] [address]. CO2 molar conc 19 mmol/L Low 22-32 [facility] Comment on above: Performed By: #### 5 8077-9, 47862-3 #### [facility], [address] [place] [address]. Creatinine mass conc 0.39 mg/dL Low 0.60-1.30 [facility] Comment on above: Performed By: #### 5 8077-9, 77344-2 #### [facility], [address] [place] [address]. Glucose mass conc 82 mg/dL Normal 70-99 [facility] Comment on above: Result Comment: U pdated ADA Reference Range A normal fasting glucose concentration is less than 100 mg/dL. An impaired fasting glucose concentration is 100-125 mg/dL. A provisional diagnosis of diabetes mellitus can be made when a fasting glucose concentration is greater than 125 mg/dL. Performed By: #### 5 8077-9, 05872-0 #### [facility], [address] [place] [address]. Potassium molar conc 2.6 mmol/L Critically abnormal 3.6-5.1 [facility] Comment on above: Result Comment: Crit ical value(s) on tests K called to and read-back by A[place]A [id number] , at location [facility] by [id number] time called 08/12/18 12:57 GEB Performed By: #### 5 8077-9, 25152-6 #### [facility], [address] [place] [address]. Protein mass conc 7.3 g/dL Normal 6.1-7.9 [facility] Comment on above: Performed By: #### 5 8077-9, 54094-9 #### [facility], [address] [place] [address]. Sodium molar conc 133 mmol/L Low 136-145 [facility] Comment on above: Performed By: #### 5 8077-9, 55950-5 #### [facility], [address] [place] [address]. Urea nitrogen mass conc (BldV) 2 mg/dL Low 8-20 [facility] Comment on above: Performed By: #### 5 8077-9, 31941-2 #### [facility], [address] [place] [address]. Differential Manualon 2018 Anisocytosis Ql (Bld) 1+ Normal [facility] Comment on above: Performed By: #### 5 8077-9, 03715-7 #### [facility], [address] [place] [address]. Band form neutrophils/100 WBC (Bld) 1 % Normal [facility] Comment on above: Performed By: #### 5 8077-9, 13309-9 #### [facility], [address] [place] [address]. Autumn cells LM Ql (Bld) 1+ Normal [facility] Comment on above: Performed By: #### 5 8077-9, 92252-8 #### [facility], [address] [place] [address]. Cells Counted Total num (Bld) 100 {cells} Normal [facility] Comment on above: Performed By: #### 5 8077-9, 20420-2 #### [facility], [address] [place] [address]. Eosinophils/100 WBC (Bld) 1 % Normal 0-7 [facility] Comment on above: Performed By: #### 5 8077-9, 18482-0 #### [facility], [address] [place] [address]. Lymphocytes/100 WBC (Bld) 16 % Low 22-44 [facility] Comment on above: Performed By: #### [place] 8077-9, 75441-3 #### [facility] [facility], [address] [place] [address]. Monocytes/100 WBC (Bld) 1 % Normal 0-12 [facility] Comment on above: Performed By: #### Paloma 8077-9, 72655-8 #### [facility], [address] [place] [address]. Neutrophils #/vol (Bld) 10.41 thou/mcL High 1.80-7.7 0 [facility] Comment on above: Result Comment: CALC ULATION BASED ON THE MANUAL DIFFERENTIAL RESULTS. Performed By: #### Paloma 8077-9, 19537-1 #### [facility], [address] [place] [address]. Ovalocytes LM Ql (Bld) 1+ Normal [facility] Comment on above: Performed By: #### Paloma 8077-9, 20862-2 #### [facility], [address] [place] [address]. Polychromasia LM Ql (Bld) 1+ Normal [facility] Comment on above: Performed By: #### Paloma 8077-9, 66381-2 #### [facility], [address] [place] [address]. Segmented neutrophils/100 WBC (Bld) 81 % High 40-70 [facility] Comment on above: Performed By: #### 5 8077-9, 80765-3 #### [facility], [address] [place], [place]. Drug Abuse Screen 8 Urineon 08-12-2018 Amphetamines Ql (U) Negative Normal [facility] Comment on above: Performed By: #### 6 9405-9, 44377-6n7, 61304-2 #### [address] [place], [place] Barbiturates Screen Ql (U) Negative Normal [facility] Comment on above: Performed By: #### 6 9405-9, 51724-9q2, 98203-8 #### [address] Benzodiazepines cutoff Screen mass conc (U) Negative Normal [facility] Comment on above: Performed By: #### 6 9405-9, 81248-5c8, 22415-5 #### [address] Cocaine Ql (U) Negative Normal [facility] Comment on above: Performed By: #### 6 9405-9, 66049-0p9, 22999-1 #### [address] Interpretation and review of laboratory results Negative Normal [facility] Comment on above: Performed By: #### 6 9405-9, 95864-1b4, 06399-1 #### [address] Methadone Screen Ql (U) Negative Normal NEGATIVE [facility] Comment on above: Performed By: #### 6 9405-9, 50984-8v1, 17303-2 #### [address] [place], [place] Opiates Screen Ql (U) Negative Normal [facility] Comment on above: Result Comment: INTE RPRETATION TABLE FOR SAP8 URINE DRUG SCREEN PRESUMPTIVE POSITIVE CUT-OFF VALUES (NG/DL) TEST POSITIVE CUT-OFF VALUES(NG/ML) Amphetamine 1000 Barbiturate 200 Benzodiazepines 200 Cannabinoids 50 Cocaine 300 Methadone 300 Opiates 300 Oxycodone 100 All drugs identified should be considered presumptive positives. Presumptive Positive Screens can be confirmed by a reference lab upon request. ALL DRUG SCREEN RESULTS ARE FOR MEDICAL PURPOSES ONLY. Performed By: #### 6 9405-9, 05355-7o7, 84728-3 #### [facility] [address] [place], [place] Tetrahydrocannabinol Screen Ql (U) Negative Normal [facility] Comment on above: Performed By: #### 6 9405-9, 02807-7h5, 62147-2 #### [facility] [address] [place], [place] ED Pat [facility] 08-12-2018 ED Pat [address] [id number] Emergency Department Discharge Instructions ISIDRA ZALDIVAR , Please provide this information to your Primary Care/Specialist Name : ISIDRA ZALDIVAR Current Date : 08/12/2018 11:23:17 : 1985 12:00 PM Primary Care Physician : Physician, No PCP Diagnosis : Follow-Up Instructions: ISIDRA ZALDIVAR has been given these follow-up instructions: Laboratory Orders: None Ordered Radiology Orders: None Ordered Diagnostic Tests: None Ordered Procedure(s) and Patient Education(s) : EMERGENCY SERVICES MEDICATION LIST Lista de Medicaciones de los Servicios de Emergencia Name ISIDRA ZALDIVAR MRN ([facility])-[id number] PLEASE READ THE FOLLOWING REGARDING YOUR MEDICATIONS Based on the information available during your visit we have given you the medication instructions below. Continue taking medications you took prior to your visit unless you have been told to change. Please share this information with your own doctor. Carry a list of your medications with you in case of an emergency. Update it when medications are stopped, doses are changed, or new medications (including xkph-poq-vidgulj products) are added. If you have any questions, check with your doctor. Por la informaci??n disponible kelli soto visita, las instrucciones de medicaci??n aparecen debajo. Favor de continuar tomando las medicaciones Ud. john?? antes de soto visita por lo menos que hay cambios. Favor de compartir esta informaci??n con soto medico. Lleva ronna lista de medicaciones consigo por carmenza de emergenc??a. Actualiza la lista cuando Ud. nubia de sebastian las medicaciones, si cambian las dosis, o si hay nuevas medicaciones a??adidas (incluyendo medicaciones vendidas sin prescripci??n). Favor de preguntar a soto medico por cualquier guy. THESE ARE THE MEDICATIONS YOU SHOULD BE TAKING metoclopramide (Reglan) MEDICATIONS GIVEN DURING MEDICAL VISIT None NON-MEDICATION PRESCRIPTION SCHEDULING PHONE NUMBER: MEDICATION CHANGE DETAILS (Not your Final Home Medication List) During the course of your visit, your home medication list was updated with the most current information. The details of those changes are shown below: NEW MEDICATIONS Other Medications metoclopramide (Reglan) Comment UPDATED MEDICATIONS None UNCHANGED MEDICATIONS None STOP TAKING THESE MEDICATIONS None DO NOT TAKE UNTIL YOU TALK TO YOUR DOCTOR None [place] [id number] Emergency Department Discharge Instructions Name: ISIDRA ZALDIVAR Current Date: 08/12/2018 11:23:17 : 1985 12:00 PM Primary Physician: Physician, No PCP We would like to thank you for choosing [facility] for your emergency medical needs. We examined and treated you today on an emergency basis only. This was not a substitute for, or an effort to provide, complete medical care. In most cases, you must let your doctor (or the doctor we referred you to) check you again. Tell your doctor about any new or lasting problems. We cannot recognize and treat all injuries or illnesses in one emergency department visit. After you leave, you should follow the directions attached. Instructions for obtaining X-rays: When following up with your doctor or a bone doctor, you may need to take copies of your x-rays that were done in the Emergency Department. If you didn't receive these upon your discharge from the emergency department, please call . When the final report becomes available and it is reviewed, the emergency department will attempt to contact you if there are any changes in your instructions. It is important that you leave accurate information with us on how to contact you. IF you cannot be contacted, YOU must contact the follow-up doctor that you were assigned to make sure that the final official x-ray report does not require a change in your treatment. Instructions for obtaining medical records: If you need a copy of your medical records for follow-up, please contact the Health Information Management Department at . Their office hours are 8 AM- 4:30 PM, Monday through Monday. Please note: Results are not immediately available. Please allow a minimum of 48 hours for documentation and results. If you were prescribed an antibiotic: Antibiotics are life-saving drugs and they need to be used properly. Your team might change your antibiotic because test results show that a different antibiotic would be better to treat your infection. Like all medications, antibiotics have side effects. Some can be serious. This includes the risk of getting an antibiotic-resistant infection later, which may be difficult to treat. Remember to take your antibiotics as prescribed. If you have any questions please talk to your healthcare team. Seatbelts: There is no doubt that seatbelts save lives. Every day, people without seatbelts have more serious injuries. Have everyone buckle up, using age appropriate seatbelts or car seats, to reduce their risk of injury. Smoking: If you do smoke, we encourage you to stop. Smoking affects all aspects of your health and the health of those around you. [facility] offers many resources to help with smoking cessation. Call the [facility] Tobacco Quit Line at 9-497-AVHP-NOW ( ). High blood pressure: Your screening blood pressure today was / . Hypertension (high blood pressure) is blood pressure over 120/80. People with hypertension should contact their primary care provider within 30 days to follow up. Check your patient portal for additional blood pressure information. Immunizations: Immunization is a way to protect against deadly infections. Discuss this with your child's crime scene photographer, or Public Health Department. Your family practice doctor can determine if you need pneumonia or flu vaccine. The [facility] Department can be reached at . Substance Abuse Program: Concerns with addiction to alcohol, benzodiazepines (Ativan or Xanax) and Opiates (Heroin, Percocet, OxyContin, Methadone or Fentanyl)? [facility] offers an inpatient Substance Abuse Program to help treat the symptoms associated with medical detoxification of addictive substances. The new program offers care for non- adults (18 and older) looking to break the chain to addictive chemicals. The Substance Abuse Program is a voluntary inpatient admission and it starts with a pre-screening phone call to a social media coordinator. During the call, goals and objectives for recovery and how the patient will transition to outpatient care will be established. Please call [phone] to get help today. Domestic Violence: If you are a victim of domestic violence (physical, verbal, or emotional), you are not alone. Discuss this with your physician or a friend and call the [place] Domestic Violence Hotline or [place] Domestic Violence Hotline for assistance and support. You are the most important factor in your recovery. Follow the provided instructions carefully. Take your medications as prescribed. Most importantly, see a doctor again as discussed. If you have problems that we have not discussed, call or visit your doctor right away. If you do not have a primary care physician, we have provided one for you to follow up with. When you call for an appointment, please inform them that you were seen in the emergency department and the date of your visit. If you are unable to reach your doctor and are still experiencing problems, return to the emergency department. For assistance finding a primary care physician, call the Physician Referral Line at [phone] ([phone]). Suicide Hotline: Your mental and emotional well-being is important. If you are in a mental health crisis or are having thoughts of suicide, please call the nationwide suicide hotline, anytime day or night, at 5-814-009-TGRN (1096). Community Criminal Psychologist: You may be contacted by your local fire department for a follow up visit from a community computer engineering technologist. The community computer engineering technologist can help with a home safety check; follow up care, and general home care management. Pharmacy Information: Below is a list of 24 hour pharmacies that we are aware of. We suggest that you call the specific pharmacy for their hours before traveling to a location. Hours may vary on holidays. [facility] Pharm[facility] [address] [id number] [phone] [place] [address] [phone] [place] [address] [phone] [phone] [address] [place], [place] [phone] [address] [phone] [place], [place] [address] [phone] Take all medications as directed. If you need prescription assistance, contact the following agencies: ?? Partnership for Prescription Assistance at or www.pparx.org ?? [place] at or www.Beanupbestrx.org ?? www.DirectworksRiList.SearchMe is a site with many valuable coupons Patient Education Materials ISIDRA ZALDIVAR has been given the following patient education materials: <><><><><><><><><><><><>< ><><><><><><><><><><><><> <> Patient Visit Summary Signature ISIDRA ZALDIVAR has been given the following list of patient education materials, prescriptions and follow-up instructions: CARINA Barakat DANIELLE MARIE, have received the above patient education materials/instructions and have verbalized understanding: Date Time Patient Signature Date Time Provider Signature Normal [facility] GFRaaon 08-12-2018 GFR/1.73 sq M predicted among blacks MDRD vol rate/area (S/P/Bld) mL/min/{1.73_m2} Normal [facility] Comment on above: Result Comment: The MDRD equation has not been validated for those over 70 years, women, patients with serious co-morbid conditions, or with extremes of body size, muscle mass of nutritional status. Performed By: #### 5 8077-9, 81937-0 #### [facility], [address] [place] [address]. GFRbbon 08-12-2018 GFR/1.73 sq M predicted among non-blacks MDRD vol rate/area (S/P/Bld) mL/min/{1.73_m2} Normal [facility] Comment on above: Performed By: #### 5 8077-9, 07267-1 #### [facility], [address] [place] [address]. Magnesium Levelon 08-12-2018 Magnesium mass conc 1.6 mg/dL Low 1.8-2.5 [facility] Comment on above: Performed By: #### 6 9405-9, 57003-7m4, 49278-7 #### [id number] Patient Summaryon 08-12-2018 Patient Summary PATIENT DISCHARGE INSTRUCTIONS If you are having an emergency and are not able to reach your physician, CALL 911 or go to the nearest emergency room and take this document with you. [facility] 08/12/18 20:44 [address] [place]. [address] PATIENT INFORMATION -------- Name: ISIDRA ZALDIVAR Address: [address] [place] [address] Age: 32 Years Phone: [phone] : 1985 12:00 MRN: [id number] Sex: Female Race: White Ethnicity: Not Hispan/Lat Admitted From: [facility] Medical Service: Obstetric Nurse Unit/Bed: ([place]) [facility] 7T26-16 Admit Date: 08/12/2018 11:28 PCP: Physician, No PCP PHYSICIANS INVOLVED WITH CARE Attending Physicians: Chio Bashir MD - Obstetrics, Gynecology Admitting Physician: None found Primary Care Physician:Physician, No PCP,Family Practice,Internal Medicine,, - Consults: None found ALLERGIES: Phenergan : Reaction:Rash MEASUREMENTS: Last Charted: Weight: Admission 93.00 kg /205 lbs 0 oz ( 08/12/18 11:31:00 ) MEDICATIONS For: ISIDRA ZALDIVAR This is your list of medication(s). Keep it with you at all times. Your doctor may have changed doses, add, held or stopped some of your medications. Please share this information with your family doctor. Carry this list of medications with you in case of an emergency. Update it when medications are stopped, doses are changed, or new medications (including gjyw-bku-rnvcohx products) are added. Ask your doctor if you have any questions. THESE ARE THE MEDICATIONS YOU SHOULD BE TAKING ondansetron (Zofran ODT 8 mg oral tablet, disintegrating) 1 Tab(s) By Mouth every 12 hours as needed Nausea and Vomitting. Refills: 0. MEDICATION CHANGE DETAILS (Not your Final Home Medication List) During the course of your visit, your home medication list was updated with the most current information. The details of those changes are shown below: NEW MEDICATIONS [facility] [address], [address] [place], [place] [id number], [phone] ondansetron (Zofran ODT 8 mg oral tablet, disintegrating) 1 Tab(s) By Mouth every 12 hours as needed Nausea and Vomitting. Refills: 0. Comment UPDATED MEDICATIONS None UNCHANGED MEDICATIONS None STOP TAKING THESE MEDICATIONS metoclopramide (Reglan) DO NOT TAKE UNTIL YOU TALK TO YOUR DOCTOR None NON-MEDICATION PRESCRIPTION SCHEDULING PHONE NUMBER: SELECTED LAB RESULTS Lab Result Order Date Hemoglobin 14.5 gm/dL 08/12/2018 Hematocrit 42.3 % 08/12/2018 WBC Count 12.7 thou/mcL 08/12/2018 Platelet Count 160 thou/mcL 08/12/2018 Sodium Level 133 mMol/L 08/12/2018 Potassium Level 2.6 mMol/L 08/12/2018 Creatinine 0.39 mg/dL 08/12/2018 BUN 2 mg/dL 08/12/2018 Total Bilirubin 1.4 mg/dL 08/12/2018 Glucose Level 82 mg/dL 08/12/2018 ADVANCE DIRECTIVE/HEALTH CARE DECISIONS: Advance Directive/Health Care Decisions Executed by Patient: : No Information Obtained From: Patient Advance Directive Health Care Information Offered: Patient declines SUICIDE HOTLINE: Your mental and emotional well-being are important. If you are in a mental health crisis, or having thoughts of suicide, please call the nationwide suicide hotline, anytime day or night, at 2-734-278-JZJT. Important information about accessing your health information through the [facility] patient portal If you initiated the self-registration process for [facility] during your stay, please check your personal email for an invitation to enroll in [employer] and complete the steps outlined in the email. If you would prefer to enroll while in the hospital, ask a member of your care team. We would be happy to assist you. If you have already enrolled in [facility], go to [email or web address] to login and access your health information. Thank you for choosing [facility]. PATIENT EDUCATION Common Discomforts of Your body will go through many changes during your . It is hard to know when to worry about these changes, especially if you are a first-time mother. We want you to feel more at ease with the changes you may have and give you knowledge to cope with these discomforts and changes. Some of the common discomforts and changes and ways to relieve them are described below. Abdominal pain is the most common complaint of women when they come to the hospital. There are things you can do daily to prevent some types of abdominal discomfort: ?? Drink 8 to 12 glasses of fluid each day, most of that being water. ?? Empty your bladder often. ?? Eat healthy regular meals with plenty of fruits, vegetables, and fiber. Some women experience round ligament pain, which can be felt in the lower abdomen or one or both groins. This discomfort occurs when the ligaments that support your growing uterus stretch as you progress through your . Things you can do to relieve this pain are: ?? Take a warm bath. ?? Use a heating pad in 15 minute intervals. ?? Wear a maternity belt. ?? Bend towards the pain to ease the stretching. ?? Use pillows to support under your belly and between your legs when lying down. Back pain is another common complaint that most women can expect. Lower back pain can result from the shift in the center of gravity and the shift in your posture as your baby grows. This change causes strain on your back muscles. Lower back pain usually increases with additional pregnancies due to the weakness of the abdominal muscles as the uterus grows. To relieve back pain, you can: ?? Have good posture. ?? Wear supportive low heeled shoes. ?? Wear a maternity belt. ?? Use a heating pad. ?? Take warm baths. ?? Have a massage or back rub. ?? Avoid a lot of bending, lifting or walking without rest. ?? Take Tylenol?? (acetaminophen) as needed - as directed by your health care provider. Vaginal spotting can be normal in some circumstances in . The cervix is made up of many blood vessels and any inflammation of the cervix or vagina can cause bleeding. Vaginal spotting can be expected after intercourse or after a cervical exam. Spotting may also occur with bacterial infections, sexually transmitted infections, or yeast infections. These causes should be treated and resolved quickly. Bleeding heavier than spotting is not normal and you should immediately contact your care provider if this occurs. Nausea is experienced by ?? to 3/4 of all women, but the nausea resolves in 90% of women by about 22 weeks of . Nausea can be caused by hormonal changes, stomach overloading, slowed movement of your intestines, low blood sugar, or emotional factors. Some ways you can prevent and relieve nausea are: ?? Eat small frequent meals every 2 - 3 hours. ?? Eat dry crackers before getting up. ?? Avoid fatty and spicy foods. ?? Drink carbonated beverages such as geri benson. ?? Get enough rest. Dizziness is something women can experience throughout their too. This is often caused by low blood pressure, low blood sugar, or low iron. To help prevent dizziness: ?? Eat small frequent meals to maintain your blood sugar. ?? Take iron supplements as directed by your care provider. ?? Change positions slowly, especially from sitting to standing. Shortness of breath is caused by the increased amounts of hormones during acting on your respiratory system. As your uterus grows, it presses on the diaphragm making it harder to fully expand your lungs and take a deep breath. Standing up and stretching your arms above your head will allow you to take a deep breath. Good posture will also help relieve shortness of breath. Swelling can be caused by impaired circulation and increased pressure in the veins in your legs. To decrease or avoid increased swelling: ?? Avoid wearing tight clothing. ?? Elevate your legs throughout the day. ?? Position yourself on your side when lying down. ?? Wear a maternity belt. Headaches are a common complaint of women. These can be uncomfortable, but are rarely a sign of a serious problem. Headaches usually occur in the first and third trimester of . They can be caused by poor posture, lack of sleep, dehydration, caffeine withdrawal, stress, or low blood sugar. To prevent or relieve headaches: ?? Use relaxation techniques such as slow deep breathing or massage. ?? Reduce stress as much as you can. ?? Take warm baths. ?? Exercise regularly. ?? Eat healthy meals at regular times. ?? Get plenty of rest. ?? Take Tylenol?? (acetaminophen) as needed - as directed by your health care provider. Leg cramps in are thought to be caused by pressure on the pelvic blood vessels by your growing uterus, which can impair blood flow. Leg cramps can also be caused by an imbalance in minerals. Measures to prevent and relieve leg cramps include: ?? Straighten your leg and flex your foot. ?? Put strong pressure on the bottom of your foot. ?? Get regular exercise. ?? Elevate your legs throughout the day. ?? Eat a healthy diet. Many of the common discomforts of can be prevented or relieved with a few easy things you can do every day: ?? Eat regular meals. ?? Get plenty of rest. ?? Drink 8 - 12 glasses of fluid each day. ?? Elevate your legs. ?? Wear a maternity belt for support. Talk to your health care provider if you have questions. If you become concerned about these or any other changes, call your doctor or legal document specialist right away. Dev. 11/14, 09/17, 12/21 ??[facility] 2015 Call your doctor or return to Labor and Delivery if you have any signs of labor or signs of Pre-eclampsia (PIH). Follow instructions that are marked (X) ( ) Signs of Labor Call/return to Labor and Delivery if you have any of the following: ?? Uterine contractions every 5 minutes lasting 45-60 seconds for 1 hour ?? A gush or trickle of clear, watery fluid from the vagina ?? Abdomen that feels continually rock hard ?? Bleeding that is bright red and/or heavier than a period ( ) Signs of Pre-Eclampsia (PIH) Call/return to Labor and Delivery if you have any of the following: ?? Ongoing, severe headache not relieved by Tylenol ?? Increased swelling of face and hands ?? Blurred or spotty vision ?? Upper abdominal pain and/or severe heartburn ?? Convulsions ( ) Labor ?? Bedrest. Rest on left side as much as possible. ?? Drink 8-12 glasses of liquid a day. ?? No sexual activity, tub baths, douching or tampons until directed by your doctor. ?? Call your doctor if you have any of the following: - Increased vaginal discharge - Burning and frequent urination - More than contractions in 1 hour ( ) Urinary Tract Infection ?? Drink 8-12 glasses of water, milk or juice a day. ?? Call your doctor if you have a temperature of 100.4?? or higher ?? Call your doctor if burning and frequent urination returns after taking all your medication. ?? Call your doctor if back pain occurs. Activity Level ( ) Bedrest ( x ) Activity as tolerated ( ) No work or school for days ( ) No sexual activity, tub baths, douching and tampons until directed by your doctor Follow-up Instructions ( ) Culture was obtained, contact physician for results ( ) Instructed on Movement counts (Handout given) ( ) ID Bracelet removed and disposed of properly ( ) If the patient has not been smoke free for 12 months, advise them to stop smoking. For more help, talk to your doctor or call [phone]-[phone] ( ). I have been informed of the risks and benefits of a discharge to home. Permission is granted for discharge to home. Keep next scheduled appointment. SCREENER AND BLENDER OPERATOR SCHEDULED MEDICATION FROM PHARMACY ON FILE. PATIENT DISCHARGE INSTRUCTION Signature Page for: ISIDRA ZALDIVAR Date/Time: 08/12/2018 20:44:46 A Clinician has explained the information on my discharge instructions and has provided me with a copy. My questions have been answered to my satisfaction. Patient Signature Date/Time Responsible Party Date/Time Relationship to Patient __ Clinician Signature Date/Time ___ Normal [facility] Urinalysis Microscopicon Bacteria LM.HPF #/area (Urine sed) MANY Abnormal NONE/HPF [facility] Comment on above: Performed By: #### 6 9405-9, 76389-9z0, 98363-7 #### [facility] [address], [place] Epithelial cells.squamous LM.HPF #/area (Urine sed) OCCASSNL Normal FEW/LPF [facility] Comment on above: Performed By: #### 6 9405-9, 21287-6x5, 94270-6 #### [facility] [address], [place] Hyaline casts #/area (Urine sed) 6 /[LPF] Normal [facility] Comment on above: Performed By: #### 6 9405-9, 49147-5i9, 65262-6 #### [address] [place], [place] Mucus Ql (Urine sed) OCCASSNL Abnormal NONE/LPF [facility] Comment on above: Performed By: #### 6 9405-9, 67722-8f4, 10127-6 #### [address] [place], [place] RBC LM.HPF #/area (Urine sed) 1 /[HPF] Normal 0-5 [facility] Comment on above: Performed By: #### 6 9405-9, 96865-5z9, 98062-1 #### [address] [place], [place] WBC Urine 9 /hpf High 0-5 [facility] Comment on above: Performed By: #### 6 9405-9, 98087-3g4, 29916-4 #### [address] [place], [place] Urinalysis with Microscopic Automaticon 08-12-2018 Appearance Nom (U) TURBID Abnormal CLEAR [facility] Comment on above: Order Comment: Urine is already in lab Performed By: #### 6 9405-9, 12134-2a0, 88405-0 #### [address], [place] Bilirubin Test strip mass conc (U) 2MG/DL Abnormal NEGATIVE [facility] Comment on above: Order Comment: Urine is already in lab Performed By: #### 6 9405-9, 73132-9m5, 63036-5 #### [facility] [address], [place] Color Nom (U) SUKI Normal YELLOW [facility] Comment on above: Order Comment: Urine is already in lab Performed By: #### 6 9405-9, 62487-7b6, 06972-1 #### [facility] [address], [place] Glucose Test strip mass conc (U) NORMAL Normal NORMAL [facility] Comment on above: Order Comment: Urine is already in lab Performed By: #### 6 9405-9, 35000-9w7, 13311-4 #### [facility] [address], [place] Hemoglobin Ql (U) Negative Normal NEGATIVE [facility] Comment on above: Order Comment: Urine is already in lab Performed By: #### 6 9405-9, 32190-0z7, 42507-5 #### [facility] [address], [place] Ketones mass conc (U) 80MG/DL Abnormal NEGATIVE [facility] Comment on above: Order Comment: Urine is already in lab Performed By: #### 6 9405-9, 75547-3b5, 78369-0 #### [facility] [address], [place] Leukocyte esterase Test strip Ql (U) 250/UL Abnormal NEGATIVE [facility] Comment on above: Order Comment: Urine is already in lab Performed By: #### 6 9405-9, 86067-9y1, 19782-6 #### [facility] [address], [place] Nitrite Test strip mass conc (U) Negative Normal NEGATIVE [facility] Comment on above: Order Comment: Urine is already in lab Performed By: #### 6 9405-9, 17267-3v5, 98389-5 #### [facility] [address], [place] pH (U) 6.0 [pH] Normal 4.5-8.0 [facility] Comment on above: Order Comment: Urine is already in lab Performed By: #### 6 9405-9, 37883-2c0, 57816-1 #### [facility] [address], [place] Protein mass conc (U) 100 mg/dL Abnormal NEGATIVE [facility] Comment on above: Order Comment: Urine is already in lab Performed By: #### 6 9405-9, 33339-9i5, 84078-3 #### [facility] [address], [place] Specific gravity Relative Density (U) 1.020 Normal 1.002-1.03 0 [facility] Comment on above: Order Comment: Urine is already in lab Performed By: #### 6 9405-9, 84309-6c2, 11065-7 #### [facility] [address], [place] Urobilinogen Test strip mass conc (U) 4MG/DL Abnormal NORMAL [facility] Comment on above: Order Comment: Urine is already in lab Performed By: #### 6 9405-9, 66936-6g8, 07640-2 #### [facility] [address], [place] Thinprep Pap Diagnosticon Cytology report Cyto stain.thin prep Doc (Cervical or vaginal smear or scraping) ISIDRA ZALDIVAR [id number] 32 YRS F [id number] / ORDERING PHYSICIAN: ERMIAS VELASCO RESULT TRANSMITTED: 08/09/18 1538 CYTOLOGY REPORT - THIN PREP TECHNIQUE CLINICAL HISTORY LMP: NOT PROVIDED HIGH RISK? NO ? NO COMMENT: SPECIMEN SOURCE: CERVICAL;VIAL STATEMENT OF SPECIMEN ADEQUACY: Smear satisfactory for interpretation. Endocervical component present. DIAGNOSIS: NEGATIVE FOR INTRAEPITHELIAL LESION OR MALIGNANCY. MBB:MBB:MBB By: ZACARIAS Plascencia(ASCP) at [facility] 08/09/18 (Electronic Signature) COMMENT: Due to excessive blood,this specimen was reprocessed with glacial acetic acid in an attempt to improve cellularity and quality. This specimen was processed by the ThinPrep Imaging System, but manually screened for technical reasons. The technical portion of this test was performed at [facility]. THIS SPECIMEN HAS BEEN ANALYZED BY THE THINPREP IMAGING SYSTEM(Snipd), AN AUTOMATED IMAGING SYSTEM, WHICH ASSISTS THE LABORATORY IN EVALUATING CELLS ON THINPREP PAP TEST. FOLLOWING AUTOMATED IMAGING TO DETECT CELLS OF INTEREST, SELECTED GR FROM EVERY SLIDE ARE REVIEWED BY A DELTA SYSTEM FREIGHT CAR CLEANER. IF INDICATED, THE SLIDE IS REFERRED TO A PATHOLOGIST FOR FURTHER EVALUATION. THE PAP SMEAR IS A SCREENING TEST WITH AN IRREDUCIBLE FALSE-NEGATIVE RATE, THE CONSEQUENCES OF WHICH CAN BE MINIMIZED BY OBTAINING AN ANNUAL PAP SMEAR. FOOTNOTE ADDED ON 08/09/18 AT 1537 BY DISCERN END OF REPORT Normal [facility] Comment on above: Result Comment: END OF REPORT Varicella Zoster Antibody Ig Kasi 07-31-2018 VZV IgG Qn (S) 449 Unit High <135 [facility] Comment on above: Result Comment: INTE RPRETATION: Positive: IgG antibody detected which may indicate current or previous exposure/immunization. Test performed at [facility] [place], [facility] [place] [id number] Homero Odom MD - Metal Building Assembler Performed By: #### 5 8077-9, 28032-2 #### [facility], [address] [place] [address]. Antibody Screen Interpretati on (T+S Compon 07-30-2018 Interpretation and review of laboratory results Negative Normal NEGATIVE [facility] Comment on above: Performed By: #### 5 8077-9, 47897-4 #### [facility], [address] [place] [address]. Blood Typing ABO + Rh(D)on 0 07-30-2018 ABO and Rh group Nom (Bld) OPOS Normal [facility] Comment on above: Performed By: #### 5 8077-9, 16003-7 #### [facility], [address] [place] [address]. CBCon 07-30-2018 Erythrocyte distribution width Entitic volume (RBC) 14.4 % Normal 11.0-14.8 [facility] Comment on above: Performed By: #### 5 8077-9, 76741-4 #### [facility], [address] [place] [address]. Hematocrit Volume Fraction (Bld) 38.2 % Normal 35.0-45.0 [facility] Comment on above: Performed By: #### 5 8077-9, 53248-5 #### [facility], [address] [place] [address]. Hemoglobin mass conc (Bld) 13.2 g/dL Normal 12.0-16.0 [facility] Comment on above: Performed By: #### 5 8077-9, 88628-3 #### [facility], [address] [place] [address]. MCH Entitic mass (RBC) 28.9 Picograms Normal 27.0-34.0 [facility] Comment on above: Performed By: #### 5 8077-9, 95735-6 #### [facility], [address] [place] [address]. MCHC mass conc (RBC) 34.6 g/dL Normal 32.0-36.0 [facility] Comment on above: Performed By: #### 5 8077-9, 53529-6 #### [facility], [address] [place] [address]. MCV Entitic volume (RBC) 83.6 fL Normal 80.0-97.0 [facility] Comment on above: Performed By: #### 5 8077-9, 33741-1 #### [facility], [address] [place] [address]. Platelet mean volume Entitic volume (Bld) 13.0 fL High 6.2-12.1 [facility] Comment on above: Performed By: #### 5 8077-9, 52079-0 #### [facility], [address] [place] [address]. Platelets #/vol (Bld) 139 thou/mcL Low 142-424 M [facility] Comment on above: Performed By: #### 5 8077-9, 03455-7 #### [facility], [address] [place] [address]. RBC #/vol (Bld) 4.57 million/mcL Normal 3.80-5.10 [facility] Comment on above: Performed By: #### 5 8077-9, 98445-4 #### [facility], [address] [place] [address]. WBC #/vol (Bld) 10.8 thou/mcL High 4.6-10.2 [facility] Comment on above: Performed By: #### 5 8077-9, 29965-6 #### [facility], [address] [place] [address]. Chlamydia Detection by NAATo n 07-30-2018 Protein mass conc [facility] Microbiology PROCEDURE: Chlamydia Detection by NAAT SOURCE: Cervix BODY SITE: COLLECTED DATE/TIME: 07/30/2018 13:22 EDT RECEIVED DATE/TIME: 07/30/2018 13:22 EDT START DATE/TIME: 07/30/2018 13:22 EDT FREE TEXT SOURCE: CERVIX-CERVIX INTERFACED REPORTS Final Report [] Verified Date/Time/Personnel: 07/31/2018 14:40 EDT CONTRIBUTOR_SYSTEM, CO_PN NEGATIVE * C TRACHOMATIS NUCLEIC ACID NOT DETECTED CONTACT LABORATORY FOR RECOMMENDED ADDITIONAL TESTING IF RESULTS ARE INCONSISTENT WITH CLINICAL FINDINGS Normal [facility] Comment on above: Performed By: #### 5 8077-9, 39849-0 #### [facility], [address] [place] [address]. Culture Urine + Susceptibili tyon 07-30-2018 Bacteria identified Cx Nom (U) [facility] Microbiology PROCEDURE: Culture Urine + Susceptibility SOURCE: Urine BODY SITE: COLLECTED DATE/TIME: 07/30/2018 13:22 EDT RECEIVED DATE/TIME: 07/30/2018 13:22 EDT START DATE/TIME: 07/30/2018 13:22 EDT FREE TEXT SOURCE: URINE-URINE INTERFACED REPORTS Final Report [] Verified Date/Time/Personnel: 07/31/2018 13:13 EDT CONTRIBUTOR_SYSTEM, CO_PN NO GROWTH Normal [facility] Comment on above: Performed By: #### 5 8077-9, 40372-0 #### [facility], [address] [place] [address]. GC Detection by NAATon 07-30 Chlamydia sp Ag Ql (Unsp spec) [facility] Microbiology PROCEDURE: GC Detection by NAAT SOURCE: Cervix BODY SITE: COLLECTED DATE/TIME: 07/30/2018 13:22 EDT RECEIVED DATE/TIME: 07/30/2018 13:22 EDT START DATE/TIME: 07/30/2018 13:22 EDT FREE TEXT SOURCE: CERVIX-CERVIX INTERFACED REPORTS Final Report [] Verified Date/Time/Personnel: 07/31/2018 14:43 EDT CONTRIBUTOR_SYSTEM, CO_PN NEGATIVE * N.GONORRHOEAE NUCLEIC ACID NOT DETECTED *CONTACT LABORATORY FOR RECOMMENDED ADDITIONAL TESTING IF RESULTS ARE INCONSISTENT WITH CLINICAL FINDINGS * PROCEDURE: Chlamydia Detection by NAAT SOURCE: Cervix BODY SITE: COLLECTED DATE/TIME: 07/30/2018 13:22 EDT RECEIVED DATE/TIME: 07/30/2018 13:22 EDT START DATE/TIME: 07/30/2018 13:22 EDT FREE TEXT SOURCE: CERVIX-CERVIX INTERFACED REPORTS Final Report [] Verified Date/Time/Personnel: 07/31/2018 14:40 EDT CONTRIBUTOR_SYSTEM, CO_PN NEGATIVE * C TRACHOMATIS NUCLEIC ACID NOT DETECTED CONTACT LABORATORY FOR RECOMMENDED ADDITIONAL TESTING IF RESULTS ARE INCONSISTENT WITH CLINICAL FINDINGS Normal [facility] Comment on above: Performed By: #### 5 8077-9, 04411-7 #### [facility], [address] [place] [address]. HIV 1 Antibodyon 07-30-2018 HIV 1 Ab Ql (S) NONREAC Normal NONREAC [facility] Comment on above: Result Comment: This is a 4th generation test (P24 AG,HIV-1 AB, HIV-2 AB) Specimens with preliminary reactive results will be confirmed by HIV1/2 Differentiation test (EquityMetrixniJDF). THE IDENTITY OF A PERSON ON WHOM AN HIV TEST HAS BEEN ORDERED AND THE RESULTS OF THAT TEST ARE CONFIDENTIAL This information is confidential and protected from disclosure by state law. You shall make no further disclosure of this information without the specific written and informed release of the individual tested or as otherwise permitted by law. A person who knowingly violates this confidentiality may be found liable in a civil action and be responsible for compensitory damages and equitable relief. Performed By: #### 5 8077-9, 91047-6 #### [facility], [address] [place] [address]. Hepatitis B Surface Antigeno n 07-30-2018 HBV surface Ag Ql (S) Negative Normal NEGATIVE [facility] Comment on above: Performed By: #### 5 8077-9, 50614-4 #### [facility], [address] [place] [address]. Rubella Antibody Screenon Rubella virus IgG Interp (S) IMMUNE Normal IMMUNE [facility] Comment on above: Result Comment: Self man DXI measures the Rubella IgG antibodies only. A positive(Immune) result indicates previous vaccination or infection and is indicative of presumptive immunity. Patients suspected of having primary acute rubella infection should be tested for the presence of IgM antibodies. Performed By: #### 5 8077-9, 88635-9 #### [facility], [address] [place] [address]. Syphilis Screenon 07-30-2018 T. pallidum Ab IA Ql (S) NONREAC Normal NONREAC [facility] Comment on above: Result Comment: No s erologic evidence of syphilis. Performed By: #### 5 8077-9, 74562-8 #### [facility], [address] [place] [address]. Urinalysis Microscopicon Bacteria LM.HPF #/area (Urine sed) MANY Abnormal NONE/HPF [facility] Comment on above: Performed By: #### 5 7020-0, 76038-4 #### [facility], [address] [place] [address]. Epithelial cells.squamous LM.HPF #/area (Urine sed) RARE Normal FEW/LPF [facility] Comment on above: Performed By: #### Paloma 7019-0, 16153-5 #### [facility], [address] [place] [address]. Mucus Ql (Urine sed) FEW Abnormal NONE/LPF [facility] Comment on above: Performed By: #### Paloma 7019-0, 62070-7 #### [facility], [address] [place] [address]. RBC LM.HPF #/area (Urine sed) 1 /[HPF] Normal 0-5 [facility] Comment on above: Performed By: #### Paloma 7019-0, 67966-6 #### [facility], [address] [place] [address]. WBC Urine 13 /hpf High 0-5 [facility] Comment on above: Performed By: #### Paloma 7019-0, 30540-5 #### [facility], [address] [place] [address]. Urinalysis with Microscopic Automaticon 07-30-2018 Appearance Nom (U) HAZY Abnormal CLEAR [facility] Comment on above: Performed By: #### Paloma 0, 13216-1 #### [facility], [address] [place] [address]. Bilirubin Test strip mass conc (U) Negative Normal NEGATIVE [facility] Comment on above: Performed By: #### 5 7019-0, 85824-8 #### [facility], [address] [place] [address]. Color Nom (U) YELLOW Normal YELLOW [facility] Comment on above: Performed By: #### Paloma 7019-0, 78406-0 #### [facility], [address] [place] [address]. Glucose Test strip mass conc (U) NORMAL Normal NORMAL [facility] Comment on above: Performed By: #### Paloma 7019-0, 18728-1 #### [facility], [address] [place] [address]. Hemoglobin Ql (U) Negative Normal NEGATIVE [facility] Comment on above: Performed By: #### Paloma 7020-0, 79661-6 #### [facility], [address] [place] [address]. Ketones mass conc (U) 80MG/DL Abnormal NEGATIVE [facility] Comment on above: Performed By: #### 5 7020-0, 78100-5 #### [facility], [address] [place] [address]. Leukocyte esterase Test strip Ql (U) 250/UL Abnormal NEGATIVE [facility] Comment on above: Performed By: #### 5 7020-0, 18453-0 #### [facility], [address] [place] [address]. Nitrite Test strip mass conc (U) Negative Normal NEGATIVE [facility] Comment on above: Performed By: #### Paloma 7020-0, 85970-1 #### [facility], [address] [place] [address]. pH (U) 6.0 [pH] Normal 4.5-8.0 [facility] Comment on above: Performed By: #### 5 7020-0, 53542-3 #### [facility], [address] [place] [address]. Protein mass conc (U) Negative Normal NEGATIVE [facility] Comment on above: Performed By: #### 5 7020-0, 43374-2 #### [facility], [address] [place] [address]. Specific gravity Relative Density (U) 1.016 Normal 1.002-1.03 0 [facility] Comment on above: Performed By: #### 5 7020-0, 52943-1 #### [facility], [address] [place] [address]. Urobilinogen Test strip mass conc (U) 4MG/DL Abnormal NORMAL [facility] Comment on above: Performed By: #### 5 7020-0, 75566-4 #### [facility], [address] [place] [address]. BMPon 07-24-2018 Anion gap molar conc 27 mmol/L High 10 - 20 mmol/L [facility] Calcium mass conc 9.4 mg/dL 8.4 - 10.2 mg/dL [facility] Chloride molar conc 87 mmol/L Low 98 - 108 mmol/L [facility] Creatinine mass conc 0.36 mg/dL Low 0.4 - 1 .1 mg/dL [facility] GFR/1.73 sq M predicted among non-blacks MDRD vol rate/area (S/P/Bld) The eGFR should be used for monitoring renal function only and not for medication dosing. [facility] GFR/1.73 sq M.predicted CKD-EPI vol rate/area (S/P/Bld) 144 >=60 mL/min/1.7 3 m2 [facility] Glucose mass conc 84 mg/dL 65 - 99 mg/dL [facility] HCO3 molar conc 18 mmol/L Low 21 - 32 mmol/L [facility] Potassium molar conc 3.4 mmol/L Low 3.5 - 5 .1 mmol/L [facility] Sodium molar conc 129 mmol/L Low 135 - 145 mmol/L [facility] Urea nitrogen mass conc mg/dL Low 8 - 25 mg/dL [facility] Urea nitrogen/Creatinine mass ratio [facility] Comment on above: Unable to calculate; a result component is outside measurable limits. CBC WITH AUTO DIFFERENTIALon 07-24-2018 Basophils #/vol (Bld) 0.07 10*3/uL [facility] Basophils/100 WBC (Bld) 0.5 % [facility] Eosinophils #/vol (Bld) 0.21 10*3/uL [facility] Eosinophils/100 WBC (Bld) 1.5 % [facility] Erythrocyte distribution width Entitic volume (RBC) 13.8 % 11.6 - 14.8 % [facility] Hematocrit Volume Fraction (Bld) 44.7 % 36 - 46 % [facility] Hemoglobin mass conc (Bld) 16.2 g/dL High 12 - 16 g/dL [facility] Immature granulocytes #/vol (Bld) 0.54 10*3/uL High [facility] Immature granulocytes/100 WBC (Bld) 4.00 % [facility] Comment on above: The IG parameter is the percentage of metamyelocytes, myelocytes, and promyelocytes. Interpretation and review of laboratory results Abnormal [facility] Lymphocytes #/vol (Bld) 3.13 10*3/uL [facility] Lymphocytes/100 WBC (Bld) 22.9 % [facility] MCH Entitic mass (RBC) 29.1 pg 26 - 34 pg [facility] MCHC mass conc (RBC) 36.2 g/dL 31 - 37 g/dL [facility] MCV Entitic volume (RBC) 80.4 fL 80 - 100 fL [facility] Monocytes #/vol (Bld) 1.03 10*3/uL High [facility] Monocytes/100 WBC (Bld) 7.5 % [facility] Neutroph[facility] #/vol (Bld) 8.68 10*3/uL High [facility] Neutrophils/100 WBC (Bld) 63.6 % [facility] Nucleated RBC #/vol (Bld) 0.00 10*3/uL [facility] Nucleated RBC/100 WBC Ratio (Bld) 0.0 % [facility] Platelet mean volume Entitic volume (Bld) 13.7 fL 9 - 15.5 fL [facility] Platelets #/vol (Bld) 187 10*3/uL [facility] RBC #/vol (Bld) 5.56 10*6/uL High [facility] lth WBC #/vol (Bld) 13.66 10*3/uL High [facility] alth HCG (QUANTITATIVE)[place] 0[place] [address] m[IU]/mL [facility] HCG.beta subunit ( test) Ql (U) Males and non females: <5 mIU/mL Females during : 3-4 weeks 9-130 mIU/mL 4-5 weeks 75-2600 mIU/mL 5-6 weeks 850-20,800 mIU/mL 6-7 weeks 4000-100,200 mIU/mL 7-12 weeks 11,500-289,000 mIU/mL 12-16 weeks 18,300-137,000 mIU/mL 16-29 weeks 1,400-53,000 mIU/mL 29-41 weeks 940-60,000 mIU/mL [facility] Hepatic Function Panelon Albumin mass conc 4.2 g/dL 3.2 - 5.2 g/dL [facility] ALP enzyme act/vol 122 U/L 40 - 140 U/L [facility] ALT enzyme act/vol 38 U/L 0 - 40 U/L [facility] AST enzyme act/vol 30 U/L 0 - 45 U/L [facility] Bilirubin mass conc 0.8 mg/dL 0 - 1.3 mg/dL [facility] Bilirubin.conjugated mass conc 0.3 mg/dL 0 - 0.4 mg/dL [facility] Interpretation and review of laboratory results Normal [facility] Protein mass conc 8.0 g/dL 6 - 8 g/dL [facility] lth Lipaseon 07-24-2018 Interpretation and review of laboratory results Normal [facility] Lipase enzyme act/vol 19 U/L 15 - 6 5 U/L [facility] Otheron 07-24-2018 Interpretation and review of laboratory results Abnormal [facility] [facility]IS[facility] 07-24-2018 Bacteria Auto Ql (U) Few Abnormal None Se en /hpf [facility] Bilirubin Ql (U) Positive Abnormal Negative [facility] th Comment on above: False positive urine bilirubins can occur in the setting of a large amount of hemoglobin and secondary to medications including anti-inflammatory agents, rifampin, and pyridium. Clarity Refractometry automated Nom (U) Hazy Abnormal Clear [facility] Color Nom (U) Suki Abnormal Colorless, Yellow [facility] Epithelial cells.squamous Auto #/area (Urine sed) 4 [facility] Glucose Automated test strip mass conc (U) Negative Negative mg/dL [facility] Hemoglobin Automated test strip Ql (U) Negative Negative [facility] Hyaline casts Auto #/area (Urine sed) >20 Abnormal 0 - 2 /lpf [facility] Interpretation and review of laboratory results Abnormal [facility] Ketones mass conc (U) >=80 Abnormal Negati ve mg/dL [facility] Leukocyte esterase Automated test strip Ql (U) Moderate Abnormal Negative [facility] Mucus Auto #/area (Urine sed) Few Abnormal None Seen, Rare /lpf [facility] Nitrite Automated test strip Ql (U) Negative Negative [facility] pH (U) 6.0 [pH] [facility] Protein mass conc (U) 30 Abnormal Negati ve mg/dL [facility] Comment on above: False positive resul ts may occur in urines with large amounts of hemoglobin, pH greater than 8.0, contrast medium, or disinfectants including ammonium compounds. RBC Auto #/area (Urine sed) 1 [facility] Specific gravity Relative Density (U) 1.023 [facility] Urobilinogen mass conc (U) >=4.0 Abnormal <2.0 mg/dL [facility] WBC Auto #/area (Urine sed) 27 High [facility] Microscopic examinat ion is performed on all urinalysis samples and only positive findings are reported. The test for blood on the chemical analytic portion of urinalysis may also be positive due to hemoglobinuria and myoglobinuria and if red blood cells are present they are quantified by microscopic examination. [facility] OB 1ST TRIMESTERon 2018 Interface, Rad In Fu ji Speechq - 07/24/2018 4:40 PM EDT EXAMINATION: FIRST TRIMESTER OBSTETRIC ULTRASOUND 07/24/2018 TECHNIQUE: Transabdominal first trimester obstetric pelvic ultrasound was performed with color Doppler flow evaluation. COMPARISON: None HISTORY: ORDERING SYSTEM PROVIDED HISTORY: abd pain, ; TECHNOLOGIST PROVIDED HISTORY: Reason for Exam: N/V Illness/Other Acuity: Acute Cancer History: n Surgery, Radiation History: n Type of Encounter: Initial Additional signs and symptoms: n FINDINGS: Uterus: Uterus measures 12.4 x 10.0 x 9.2 cm Gestational Sac(s): Single normal appearing gestational sac. No evidence of subchorionic hemorrhage. Yolk Sac: Present Pole: Single pole [place] R[place] Length: 69 mm Heart Rate: 152 beats per minute Right ovary: Not visualized Left ovary: Not visualized Free fluid: None Measurements: Estimated gestational age by current ultrasound: 13 weeks 1 days Estimated Due Date: 01/28/2019 IMPRESSION: Single viable intrauterine with sonographic gestational age of 13 weeks 1 days, corresponding with an estimated due date of 01/28/2019. Nonvisualized ovaries. Workstation ID: [id number] [facility] EXAMINATION: FIRST TRIMESTER OBSTETRIC ULTRASOUND 07/24/2018 TECHNIQUE: Transabdominal first trimester obstetric pelvic ultrasound was performed with color Doppler flow evaluation. COMPARISON: None HISTORY: ORDERING SYSTEM PROVIDED HISTORY: abd pain, ; TECHNOLOGIST PROVIDED HISTORY: Reason for Exam: N/V Illness/Other Acuity: Acute Cancer History: n Surgery, Radiation History: n Type of Encounter: Initial Additional signs and symptoms: n FINDINGS: Uterus: Uterus measures 12.4 x 10.0 x 9.2 cm Gestational Sac(s): Single normal appearing gestational sac. No evidence of subchorionic hemorrhage. Yolk Sac: Present Pole: Single pole [place] Length: 69 mm Heart Rate: 152 beats per minute Right ovary: Not visualized Left ovary: Not visualized Free fluid: None Measurements: Estimated gestational age by current ultrasound: 13 weeks 1 days Estimated Due Date: 01/28/2019 [facility] Single viable intrauterine with sonographic gestational age of 13 weeks 1 days, corresponding with an estimated due date of 01/28/2019. Nonvisualized ovaries. Workstation ID: [id number] [facility] OB 1ST TRIMESTER TRANSABD OMINAL SINGLE FETUSon 07-24-2018 US OB 1ST TRIMESTER TRANSABDOMINAL SINGLE FETUS EXAMINATION: FIRST TRIMESTER OBSTETRIC ULTRASOUND 07/24/2018 TECHNIQUE: Transabdominal first trimester obstetric pelvic ultrasound was performed with color Doppler flow evaluation. COMPARISON: None HISTORY: ORDERING SYSTEM PROVIDED HISTORY: abd pain, ; TECHNOLOGIST PROVIDED HISTORY: Reason for Exam: N/V Illness/Other Acuity: Acute Cancer History: n Surgery, Radiation History: n Type of Encounter: Initial Additional signs and symptoms: n FINDINGS: Uterus: Uterus measures 12.4 x 10.0 x 9.2 cm Gestational Sac(s): Single normal appearing gestational sac. No evidence of subchorionic hemorrhage. Yolk Sac: Present Pole: Single pole [place] Length: 69 mm Heart Rate: 152 beats per minute Right ovary: Not visualized Left ovary: Not visualized Free fluid: None Measurements: Estimated gestational age by current ultrasound: 13 weeks 1 days Estimated Due Date: 01/28/2019 IMPRESSION: Single viable intrauterine with sonographic gestational age of 13 weeks 1 days, corresponding with an estimated due date of 01/28/2019. Nonvisualized ovaries. Workstation ID: [id number] Dictated by: YESICA MURRAY on MonJul 24, 2018 4:37:35 PM EDT Transcribed by: YESICA MURRAY on MonJul 24, 2018 4:37:35 PM EDT Finalized by: YESICA MURRAY on MonJul 24, 2018 4:37:35 PM EDT [facility] Comment on above: Order Comment: Reaso n for exam?:N/V Injury/Trauma or Illness?:Illness/Other How long have you had these symptoms (acute/chronic)?:Acute History of cancer?:n Surgeries, chemotherapy, or radiation?:n Type of Exam?:Initial Additional signs and symptoms?:n CBC WITH AUTO DIFFERENTIALon 07-12-2018 Basophils (Bld) [#/Vol] 0.04 10*3/uL [facility] Basophils/100 WBC (Bld) 0.3 % [facility] Eosinophils (Bld) [#/Vol] 0.35 10*3/uL [facility] Eosinophils/100 WBC (Bld) 3.0 % [facility] Erythrocyte distribution width (RBC) [Entitic vol] 13.8 % 11.6 - 14.8 % [facility] Hematocrit (Bld) [Volume fraction] 41.2 % 36 - 46 % [facility] Hemoglobin (Bld) [Mass/Vol] 13.4 g/dL 12 - 16 g/dL [facility] Immature granulocytes (Bld) [#/Vol] 0.15 10*3/uL [facility] Immature granulocytes/100 WBC (Bld) 1.30 % [facility] Comment on above: The IG parameter is the percentage of metamyelocytes, myelocytes, and promyelocytes. Interpretation and review of laboratory results Abnormal [facility] Lymphocytes (Bld) [#/Vol] 3.30 10*3/uL [facility] Lymphocytes/100 WBC (Bld) 28.4 % [facility] MCH (RBC) [Entitic mass] 28.3 pg 26 - 34 pg [facility] MCHC (RBC) [Mass/Vol] 32.5 g/dL 31 - 3 7 g/dL [facility] MCV (RBC) [Entitic vol] 86.9 fL 80 - 100 fL [facility] Monocytes (Bld) [#/Vol] 0.55 10*3/uL [facility] Monocytes/100 WBC (Bld) 4.7 % [facility] Neutrophils (Bld) [#/Vol] 7.22 10*3/uL [facility] Neutrophils/100 WBC (Bld) 62.3 % [facility] Nucleated RBC (Bld) [#/Vol] 0.00 10*3/uL [facility] Nucleated RBC/100 WBC (Bld) [Ratio] 0.0 % [facility] Platelet mean volume (Bld) [Entitic vol] 13.7 fL 9 - 15.5 fL [facility] Platelets (Bld) [#/Vol] 159 10*3/uL [facility] RBC (Bld) [#/Vol] 4.74 10*6/uL [facility] ealth WBC (Bld) [#/Vol] 11.61 10*3/uL [facility] Chem 7on 07-12-2018 Anion gap [Moles/Vol] 18 mmol/L 10 - 2 0 mmol/L [facility] Chloride [Moles/Vol] 102 mmol/L 98 - 10 8 mmol/L [facility] Creatinine [Mass/Vol] 0.23 mg/dL Low 0.4 - 1.1 mg/dL [facility] GFR/1.73 sq M predicted among non-blacks MDRD (S/P/Bld) [Vol rate/Area] The eGFR should be used for monitoring renal function only and not for medication dosing. [facility] GFR/1.73 sq M.predicted CKD-EPI (S/P/Bld) [Vol rate/Area] 167 >=60 mL/min/1.7 3 m2 [facility] Glucose [Mass/Vol] 66 mg/dL 65 - 99 mg/dL [facility] HCO3 [Moles/Vol] 18 mmol/L Low 21 - 32 mmol/L [facility] Interpretation and review of laboratory results Abnormal [facility] Potassium [Moles/Vol] 4.1 mmol/L 3.5 - 5.1 mmol/L [facility] Comment on above: Specimen moderately hemolyzed, please interpret results with caution. Sodium [Moles/Vol] 134 mmol/L Low 135 - 145 mmol/L [facility] Urea nitrogen [Mass/Vol] 5 mg/dL Low 8 - 25 mg/dL [facility] Urea nitrogen/Creatinine [Mass ratio] 21.7 mg/mg High [facility] Otheron 07-12-2018 Extra Tube Hold for add-ons. [facility] Comment on above: Auto resulted. HCG (QUANTITATIVE)[place] 019 [place] [address] m[IU]/mL High [facility] HCG.beta subunit ( test) Ql (U) Males and non females: <5 mIU/mL Females during : 3-4 weeks 9-130 mIU/mL 4-5 weeks 75-2600 mIU/mL 5-6 weeks 850-20,800 mIU/mL 6-7 weeks 4000-100,200 mIU/mL 7-12 weeks 11,500-289,000 mIU/mL 12-16 weeks 18,300-137,000 mIU/mL 16-29 weeks 1,400-53,000 mIU/mL 29-41 weeks 940-60,000 mIU/mL [facility] Interpretation and review of laboratory results Abnormal [facility] CBC WITH AUTO DIFFERENTIALon 07-03-2018 Basophils #/vol (Bld) 0.04 10*3/uL [facility] Basophils/100 WBC (Bld) 0.4 % [facility] Eosinophils #/vol (Bld) 0.37 10*3/uL [facility] Eosinophils/100 WBC (Bld) 3.4 % [facility] Erythrocyte distribution width Entitic volume (RBC) 13.9 % 11.6 - 14.8 % [facility] Hematocrit Volume Fraction (Bld) 43.7 % 36 - 46 % [facility] Hemoglobin mass conc (Bld) 14.6 g/dL 12 - 16 g/dL [facility] Immature granulocytes #/vol (Bld) 0.17 10*3/uL [facility] Immature granulocytes/100 WBC (Bld) 1.50 % [facility] Comment on above: The IG parameter is the percentage of metamyelocytes, myelocytes, and promyelocytes. Lymphocytes #/vol (Bld) 3.71 10*3/uL [facility] Lymphocytes/100 WBC (Bld) 33.8 % [facility] MCH Entitic mass (RBC) 29.0 pg 26 - 34 pg [facility] MCHC mass conc (RBC) 33.4 g/dL 31 - 37 g/dL [facility] MCV Entitic volume (RBC) 86.7 fL 80 - 100 fL [facility] Monocytes #/vol (Bld) 0.48 10*3/uL [facility] Monocytes/100 WBC (Bld) 4.4 % [facility] Neutrophils #/vol (Bld) 6.21 10*3/uL [facility] Neutrophils/100 WBC (Bld) 56.5 % [facility] Nucleated RBC #/vol (Bld) 0.00 10*3/uL [facility] Nucleated RBC/100 WBC Ratio (Bld) 0.0 % [facility] Platelet mean volume Entitic volume (Bld) 13.3 fL 9 - 15.5 fL [facility] Platelets #/vol (Bld) 174 10*3/uL [facility] RBC #/vol (Bld) 5.04 10*6/uL [facility] lth WBC #/vol (Bld) 10.98 10*3/uL [facility] alth Chem 7on 07-03-2018 Anion gap molar conc 20 mmol/L 10 - 20 mmol/L [facility] Chloride molar conc 97 mmol/L Low 98 - 108 mmol/L [facility] Creatinine mass conc 0.36 mg/dL Low 0.4 - 1 .1 mg/dL [facility] GFR/1.73 sq M predicted among non-blacks MDRD vol rate/area (S/P/Bld) The eGFR should be used for monitoring renal function only and not for medication dosing. [facility] GFR/1.73 sq M.predicted CKD-EPI vol rate/area (S/P/Bld) 144 >=60 mL/min/1.7 3 m2 [facility] Glucose mass conc 87 mg/dL 65 - 99 mg/dL [facility] HCO3 molar conc 23 mmol/L 21 - 32 mmol/L [facility] Potassium molar conc 3.7 mmol/L 3.5 - 5 .1 mmol/L [facility] Sodium molar conc 136 mmol/L 135 - 145 mmol/L [facility] Urea nitrogen mass conc 4 mg/dL Low 8 - 25 mg/dL [facility] Urea nitrogen/Creatinine mass ratio 11.1 mg/mg [facility] Hepatic Function Panel (LFT) on 07-03-2018 Albumin mass conc 4.2 g/dL 3.2 - 5.2 g/dL [facility] ALP enzyme act/vol 99 U/L 40 - 140 U/L [facility] ALT enzyme act/vol 80 U/L High 0 - 40 U/L [facility] alth AST enzyme act/vol 44 U/L 0 - 45 U/L [facility] Bilirubin mass conc 0.4 mg/dL 0 - 1.3 mg/dL [facility] Bilirubin.conjugated mass conc 0.1 mg/dL 0 - 0.4 mg/dL [facility] Protein mass conc 7.5 g/dL 6 - 8 g/dL [facility] Lipaseon 07-03-2018 Interpretation and review of laboratory results Normal [facility] Lipase enzyme act/vol 16 U/L 15 - 6 5 U/L [facility] Otheron 07-03-2018 Interpretation and review of laboratory results Abnormal [facility] URINALYSISon 07-03-2018 Bacteria Auto Ql (U) Many Abnormal None Se en /hpf [facility] Bilirubin Ql (U) Negative Negative [facility] th Clarity Refractometry automated Nom (U) Hazy Abnormal Clear [facility] Color Nom (U) Yellow Colorless, Yellow [facility] Epithelial cells.squamous Auto #/area (Urine sed) 6 High [facility] Glucose Automated test strip mass conc (U) Negative Negative mg/dL [facility] Hemoglobin Automated test strip Ql (U) Negative Negative [facility] Interpretation and review of laboratory results Abnormal [facility] Ketones mass conc (U) Trace Abnormal Negati ve mg/dL [facility] Leukocyte esterase Automated test strip Ql (U) Moderate Abnormal Negative [facility] Mucus Auto #/area (Urine sed) Few Abnormal None Seen, Rare /lpf [facility] Nitrite Automated test strip Ql (U) Negative Negative [facility] pH (U) 5.0 [pH] [facility] Protein mass conc (U) Negative Negati ve mg/dL [facility] RBC Auto #/area (Urine sed) <1 [facility] Specific gravity Relative Density (U) 1.015 [facility] Urobilinogen mass conc (U) >=4.0 Abnormal <2.0 mg/dL [facility] WBC Auto #/area (Urine sed) 14 High [facility] Microscopic examinat ion is performed on all urinalysis samples and only positive findings are reported. The test for blood on the chemical analytic portion of urinalysis may also be positive due to hemoglobinuria and myoglobinuria and if red blood cells are present they are quantified by microscopic examination. [facility] XR CERVICAL SPINE AP/LATon 1 XR CERVICAL SPINE AP/LAT EXAMINATION: 2 XRAY VIEWS OF THE CERVICAL SPINE 02/19/2018 5:03 pm COMPARISON: None. HISTORY: ORDERING SYSTEM PROVIDED HISTORY: Radiculopathy of cervical region; TECHNOLOGIST PROVIDED HISTORY: Reason for Exam: Radiculopathy of cervical region Illness/Other Acuity: Acute Cancer History: n Surgery, Radiation History: n Type of Encounter: Initial Additional signs and symptoms: n ORDERING SYSTEM PROVIDED DIAGNOSIS CODES: M54.12 Radiculopathy of cervical region FINDINGS: Disc space heights are intact. There is normal AP diameter of the spinal canal. Prevertebral soft tissues appear unremarkable. On the AP view, the patient is leaning to the left side. No significant facet joint arthropathy. I see no evidence of a cervical rib. No lytic or blastic bony lesion identified. IMPRESSION: No specific abnormality identified. JANNL/pji Workstation ID: [id number] Dictated by: MATTHEW WERNER on MonFeb 19, 2018 5:20:58 PM EDT Transcribed by: TERRY BAUMAN on MonFeb 19, 2018 5:27:27 PM EDT Finalized by: MATTHEW WERNER on MonFeb 19, 2018 5:30:41 PM EDT [facility] Comment on above: Order Comment: Reaso n for exam?:Radiculopathy of cervical region Injury/Trauma or Illness?:Illness/Other How long have you had these symptoms (acute/chronic)?:Acute History of cancer?:n Surgeries, chemotherapy, or radiation?:n Type of Exam?:Initial Additional signs and symptoms?:n No specific abnormal ity identified. Jobyal Workstation ID: [id number] Invalid Interpretation Code ZeroDesktop [facility] EXAMINATION: 2 XRAY VIEWS OF THE CERVICAL SPINE 02/19/2018 5:03 pm COMPARISON: None. HISTORY: ORDERING SYSTEM PROVIDED HISTORY: Radiculopathy of cervical region; TECHNOLOGIST PROVIDED HISTORY: Reason for Exam: Radiculopathy of cervical region Illness/Other Acuity: Acute Cancer History: n Surgery, Radiation History: n Type of Encounter: Initial Additional signs and symptoms: n ORDERING SYSTEM PROVIDED DIAGNOSIS CODES: M54.12 Radiculopathy of cervical region FINDINGS: Disc space heights are intact. There is normal AP diameter of the spinal canal. Prevertebral soft tissues appear unremarkable. On the AP view, the patient is leaning to the left side. No significant facet joint arthropathy. I see no evidence of a cervical rib. No lytic or blastic bony lesion identified. Invalid Interpretation Code ZeroDesktop [facility] Interface, Rad In Fu ji Speechq - 02/19/2018 5:33 PM EDT EXAMINATION: 2 XRAY VIEWS OF THE CERVICAL SPINE 02/19/2018 5:03 pm COMPARISON: None. HISTORY: ORDERING SYSTEM PROVIDED HISTORY: Radiculopathy of cervical region; TECHNOLOGIST PROVIDED HISTORY: Reason for Exam: Radiculopathy of cervical region Illness/Other Acuity: Acute Cancer History: n Surgery, Radiation History: n Type of Encounter: Initial Additional signs and symptoms: n ORDERING SYSTEM PROVIDED DIAGNOSIS CODES: M54.12 Radiculopathy of cervical region FINDINGS: Disc space heights are intact. There is normal AP diameter of the spinal canal. Prevertebral soft tissues appear unremarkable. On the AP view, the patient is leaning to the left side. No significant facet joint arthropathy. I see no evidence of a cervical rib. No lytic or blastic bony lesion identified. IMPRESSION: No specific abnormality identified. [facility] Workstation ID: [id number] Invalid [address] Code [facility] CBC with Differentialon 01-06 Basophils #/vol (Bld) 0.00 thou/mcL Normal 0.00-0.20 [facility] Comment on above: Performed By: #### 5 7021-8 #### [facility] [address] [place], [place] Basophils #/vol (Bld) 0.2 % Normal 0.0-2.0 [facility] Comment on above: Performed By: #### 5 7021-8 #### [id number] [place], [place] Eosinophils #/vol (Bld) 0.00 thou/mcL Normal 0.00-0.70 [facility] Comment on above: Performed By: #### 5 7021-8 #### [place] [place], [place] Eosinophils/100 WBC (Bld) 0.0 % Normal 0.0-7.0 [facility] Comment on above: Performed By: #### 5 7021-8 #### [address] [place], [place] Erythrocyte distribution width Entitic volume (RBC) 13.9 % Normal 11.0-14.8 [facility] Comment on above: Performed By: #### 5 7021-8 #### [place] [place], [place] Hematocrit Volume Fraction (Bld) 41.4 % Normal 35.0-45.0 [facility] Comment on above: Performed By: #### 5 7021-8 #### [address] [address] [place], [place] Hemoglobin mass conc (Bld) 13.7 g/dL Normal 12.0-16.0 [facility] Comment on above: Performed By: #### 5 7021-8 #### [place] [place], [place] Lymphocytes #/vol (Bld) 1.30 thou/mcL Normal 1.00-4.80 [facility] Comment on above: Performed By: #### 5 7021-8 #### [facility] [address], [place] Lymphocytes/100 WBC (Bld) 11.1 % Low 22.0-44.0 [facility] Comment on above: Performed By: #### 7021-8 #### [facility] [address], [place] MCH Entitic mass (RBC) 28.8 Picograms Normal 27.0-34.0 [facility] Comment on above: Performed By: #### 7021-8 #### [facility] [address], [place] MCHC mass conc (RBC) 33.1 g/dL Normal 32.0-36.0 [facility] Comment on above: Performed By: #### 5 7021-8 #### [facility] [address] [place], [place] MCV Entitic volume (RBC) 87.0 fL Normal 80.0-97.0 [facility] Comment on above: Performed By: #### 7021-8 #### [facility] [address], [place] Monocytes #/vol (Bld) 0.20 thou/mcL Normal 0.00-0.90 [facility] Comment on above: Performed By: #### 5 7021-8 #### [facility] [address] [place], [place] Monocytes/100 WBC (Bld) 1.7 % Normal 0.0-12.0 [facility] Comment on above: Performed By: #### 5 7021-8 #### [facility] [address], [place] Neutrophils #/vol (Bld) 10.30 thou/mcL High 1.80-7.7 0 [facility] Comment on above: Performed By: #### 5 7021-8 #### [facility] [address], [place] Neutrophils/100 WBC (Bld) 87.0 % High 40.0-70.0 [facility] Comment on above: Performed By: #### 5 7021-8 #### [facility] [address], [place] Platelet mean volume Entitic volume (Bld) 11.1 fL Normal 6.2-12.1 [facility] Comment on above: Performed By: #### 5 7021-8 #### [facility] [address], [place] Platelets #/vol (Bld) 262 thou/mcL Normal 142-424 M [facility] Comment on above: Performed By: #### 5 7021-8 #### [facility] [address], [place] RBC #/vol (Bld) 4.76 million/mcL Normal 3.80-5.10 [facility] Comment on above: Performed By: #### 5 7021-8 #### [facility] [address], [place] WBC #/vol (Bld) 11.8 thou/mcL High 4.6-10.2 [facility] Comment on above: Performed By: #### 5 7021-8 #### [place] [id number], [place] Comprehensive Metabolic Pane dora 01-19-2018 Albumin mass conc 3.9 g/dL Normal 3.5-4.8 [facility] Comment on above: Performed By: #### 6 9405-9, [id number], 39703-2 #### [facility] [address], [place] ALP enzyme act/vol 100 Units/L High 32-91 [facility] Comment on above: Performed By: #### 6 9405-9, 21765-0e8, 58594-2 #### [facility] [address], [place] ALT enzyme act/vol 17 Units/L Normal 14-63 [facility] Comment on above: Performed By: #### 6 9405-9, [id number], 04307-8 #### [facility] [address], [place] Anion gap molar conc 12.0 mmol/L Normal 6.0-18.0 [facility] Comment on above: Performed By: #### 6 9405-9, [id number], 35896-1 #### [facility] [address], [place] AST enzyme act/vol 18 Units/L Normal 15-41 [facility] Comment on above: Performed By: #### 6 9405-9, 37085-5c3, 71712-4 #### [facility] [address], [place] Bilirubin mass conc 0.2 mg/dL Low 0.3-1.2 [facility] Comment on above: Performed By: #### 6 9405-9, [id number], 04410-1 #### [facility] [address], [place] Calcium mass conc 9.8 mg/dL Normal 8.9-10.3 [facility] Comment on above: Performed By: #### 6 9405-9, 14013-5k7, 69061-1 #### [facility] [address], [place] Chloride molar conc 104 mmol/L Normal 98-107 [facility] Comment on above: Performed By: #### 6 9405-9, 88069-8q2, 84353-4 #### [facility] [address], [place] CO2 molar conc 24 mmol/L Normal 22-32 [facility] Comment on above: Performed By: #### 6 9405-9, 63266-7z1, 48013-7 #### [facility] [address], [place] Creatinine mass conc 0.64 mg/dL Normal 0.60-1.30 [facility] Comment on above: Performed By: #### 6 9405-9, 52914-4t2, 69645-7 #### [facility] [address], [place] Glucose mass conc 113 mg/dL High 70-110 [facility] Comment on above: Performed By: #### 6 9405-9, 91302-6v7, 01809-8 #### [facility] [address], [place] Potassium molar conc 4.4 mmol/L Normal 3.6-5.1 [facility] Comment on above: Performed By: #### 6 9405-9, 48449-3s0, 26811-3 #### [facility] [address] [place], [place] Protein mass conc 7.3 g/dL Normal 6.1-7.9 [facility] Comment on above: Performed By: #### 6 9405-9, 03282-6j6, 77951-7 #### [facility] [address] [place], [place] Sodium molar conc 140 mmol/L Normal 136-145 [facility] Comment on above: Performed By: #### 6 9405-9, 84484-0f5, 78663-2 #### [place] [id number] [place], [place] Urea nitrogen mass conc (BldV) 8 mg/dL Normal 8-20 [facility] Comment on above: Performed By: #### 6 9405-9, 01877-0r1, 52599-8 #### [address] Culture Urine + Susceptibili tyon 01-19-2018 Bacteria identified Cx Nom (U) [facility] Microbiology PROCEDURE: Culture Urine + Susceptibility SOURCE: Urine BODY SITE: COLLECTED DATE/TIME: 01/19/2018 16:36 EDT RECEIVED DATE/TIME: 01/19/2018 16:36 EDT START DATE/TIME: 01/19/2018 16:36 EDT FREE TEXT SOURCE: URINE INTERFACED REPORTS Final Report [] Verified Date/Time/Personnel: 01/20/2018 19:20 EDT CONTRIBUTOR_SYSTEM, CO_PN ORGANISMS USUALLY ASSOCIATED WITH VAGINAL,URETHRAL, AND/OR SKIN CONTAMINATION PRESENT. [facility] Comment on above: Performed By: #### 6 30-4 #### [address] GFRaaon 01-19-2018 GFR/1.73 sq M predicted among blacks MDRD vol rate/area (S/P/Bld) mL/min/{1.73_m2} [facility] Comment on above: Result Comment: The MDRD equation has not been validated for those over 70 years, women, patients with serious co-morbid conditions, or with extremes of body size, muscle mass of nutritional status. Performed By: #### 6 9405-9, 35669-7u7, 64628-9 #### [id number] GFRbbon 01-19-2018 GFR/1.73 sq M predicted among non-blacks MDRD vol rate/area (S/P/Bld) mL/min/{1.73_m2} Normal [facility] Comment on above: Performed By: #### 6 9405-9, 76135-4a1, 62234-5 #### [address] Glycohemoglobin (HGB A1C) Pa nelon 01-19-2018 Hemoglobin A1c/Hemoglobin.total mass fraction (Bld) 4.9 % tl hgb Normal 4.0-6.0 [facility] Comment on above: Result Comment: New method 08/05/14: Auterra HPLC (high-performance liquid chromatography) Performed By: #### 4 549-2 #### [facility], [address] [place] [address]. Urinalysis Microscopicon Bacteria LM.HPF #/area (Urine sed) MANY Abnormal NONE/HPF [facility] Comment on above: Performed By: #### 5 8077-9, 78238-6 #### [facility], [address] [place] [address]. Epithelial cells.squamous LM.HPF #/area (Urine sed) RARE Normal FEW/LPF [facility] Comment on above: Performed By: #### 5 8077-9, 95644-1 #### [facility], [address] [place] [address]. Mucus Ql (Urine sed) MODERATE Abnormal NONE/LPF [facility] Comment on above: Performed By: #### 5 8077-9, 09271-9 #### [facility], [address] [place] [address]. RBC LM.HPF #/area (Urine sed) 1 /[HPF] Normal 0-5 [facility] Comment on above: Performed By: #### 5 8077-9, 95868-8 #### [facility], [address] [place] [address]. WBC Urine 1 /hpf Normal 0-5 [facility] Comment on above: Performed By: #### 5 8077-9, 49044-2 #### [facility], [address] [place] [address]. Urinalysis with Microscopic Automatic with Reflexon 01-19-2018 Appearance Nom (U) TURBID Abnormal CLEAR [facility] Comment on above: Performed By: #### Paloma 8077-9, 19457-1 #### [facility], [address] [place] [address]. Bilirubin Test strip mass conc (U) Negative Normal NEGATIVE [facility] Comment on above: Performed By: #### Paloma 8077-9, 39816-2 #### [facility], [address] [place] [address]. Color Nom (U) YELLOW Normal YELLOW [facility] Comment on above: Performed By: #### 5 8077-9, 88107-5 #### [facility], [address] [place] [address]. Glucose Test strip mass conc (U) NORMAL Normal NORMAL [facility] Comment on above: Performed By: #### 5 8077-9, 50299-8 #### [facility], [address] [place] [address]. Hemoglobin Ql (U) 10/UL Abnormal NEGATIVE [facility] Comment on above: Performed By: #### 5 8077-9, 75781-5 #### [facility], [address] [place] [address]. Ketones mass conc (U) Negative Normal NEGATIVE [facility] Comment on above: Performed By: #### 5 8077-9, 89294-9 #### [facility], [address] [place] [address]. Leukocyte esterase Test strip Ql (U) 25/UL Abnormal NEGATIVE [facility] Comment on above: Performed By: #### 5 8077-9, 29522-7 #### [facility], [address] [place] [address]. Nitrite Test strip mass conc (U) Negative Normal NEGATIVE [facility] Comment on above: Performed By: #### 5 8077-9, 64893-9 #### [facility], [address] [place] [address]. pH (U) 6.0 [pH] Normal 4.5-8.0 [facility] Comment on above: Performed By: #### 5 8077-9, 06181-4 #### [facility], [address] [place] [address]. Protein mass conc (U) 30 mg/dL Abnormal NEGATIVE [facility] Comment on above: Performed By: #### 5 8077-9, 39195-1 #### [facility] [address] [place] [address]. Specific gravity Relative Density (U) 1.023 Normal 1.002-1.03 0 [facility] Comment on above: Performed By: #### 5 8077-9, 47869-5 #### [facility] [address] [place] [address]. Urobilinogen Test strip mass conc (U) NORMAL Normal NORMAL [facility] Comment on above: Performed By: #### 5 8077-9, 90537-8 #### [facility], [address] [place] [address]. Clostridium difficile detect ion by polymerase chain reaction C. difficile DNA SONIA+probe Ql (Unsp spec) [facility] Work Phone: EP Panel Gastrointestinal pathogens panel SONIA+probe (Stl) [facility] Work Phone: No Panel Information Giardia Antigen (GALO) [facility] Work Phone: Ova and parasites Ova and parasites identified LM Nom (Unsp spec) [facility] Work Phone: Stool gastrointestinal hemog lobin detection by immunologic method Lower GI hemoglobin IA Ql (Stl) [facility] Work Phone: Stool lactoferrin detection by immunoassay Lactoferrin IA Ql (Stl) [facility] Work Phone: Vital Signs Date Time Vital Sign Value Performing Clinician Facility 10-09-2024 12:52-0400 Body mass index (BMI) [Ratio] 27.41 kg/m2 Mike Quiros MD Work Phone: [facility] 10-09-2024 12:52-0400 Body weight 79.38 kg Mike Quiros MD Work Phone: [facility] 10-09-2024 12:52-0400 Diastolic blood pressure 61 mm[Hg] Mike Quiros MD Work Phone: [facility] 10-09-2024 12:52-0400 Heart rate 82 /min Mike Quiros MD Work Phone: [facility] 10-09-2024 12:52-0400 Systolic blood pressure 124 mm[Hg] Mike Quiros MD Work Phone: [facility] 08-21-2024 14:46-0400 Body mass index (BMI) [Ratio] 28.14 kg/m2 Nurse Wstr Work Phone: [facility] 08-21-2024 14:46-0400 Body weight 80.29 kg Nurse Wstr Work Phone: [facility] 07-04-2024 16:11-0500 Body height 170.2 cm Fabiola SALAZAR Work Phone: [facility] 07-04-2024 16:11-0500 Body mass index (BMI) [Ratio] 26.78 kg/m2 Fabiola SALAZAR Work Phone: [facility] 07-04-2024 16:11-0500 Body temperature 97 [degF] Fabiola Coats ETIQUETTE COACH-DEVELOPMENT TECHNICIAN Work Phone: [facility] 07-04-2024 16:11-0500 Body weight 77.56 kg Fabiola Coats ETIQUETTE COACH-DEVELOPMENT TECHNICIAN Work Phone: [facility] 07-04-2024 16:11-0500 Diastolic blood pressure 74 mm[Hg] Fabiola Coats ETIQUETTE COACH-DEVELOPMENT TECHNICIAN Work Phone: [facility] 07-04-2024 16:11-0500 Heart rate 68 /min Fabiola Coats ETIQUETTE COACH-DEVELOPMENT TECHNICIAN Work Phone: [facility] 07-04-2024 16:11-0500 Respiratory rate 21 /min Fabiola Coats ETIQUETTE COACH-DEVELOPMENT TECHNICIAN Work Phone: [facility] 07-04-2024 16:11-0500 SaO2% (BldA) [Mass fraction] 99 % Fabiola Coats ETIQUETTE COACH-DEVELOPMENT TECHNICIAN Work Phone: [facility] 07-04-2024 16:11-0500 Systolic blood pressure 126 mm[Hg] Fabiola Coats ETIQUETTE COACH-DEVELOPMENT TECHNICIAN Work Phone: [facility] 06-12-2024 14:47-0500 Body mass index (BMI) [Ratio] 27.03 kg/m2 Nurse Wstr Work Phone: [facility] 06-12-2024 14:47-0500 Body weight 77.11 kg Nurse Wstr Work Phone: [facility] 06-12-2024 14:47-0500 Diastolic blood pressure 62 mm[Hg] Nurse Wstr Work Phone: [facility] 06-12-2024 14:47-0500 Systolic blood pressure 116 mm[Hg] Nurse Wstr Work Phone: [facility] 04-03-2024 14:03-0500 Body mass index (BMI) [Ratio] 27.35 kg/m2 Nurse Wstr Work Phone: [facility] 04-03-2024 14:03-0500 Body weight 78.02 kg Nurse Wstr Work Phone: [facility] 04-03-2024 14:03-0500 Diastolic blood pressure 74 mm[Hg] Nurse Wstr Work Phone: [facility] 04-03-2024 14:03-0500 Systolic blood pressure 118 mm[Hg] Nurse Wstr Work Phone: [facility] 03-13-2024 13:08-0500 Body mass index (BMI) [Ratio] 26.47 kg/m2 Mike Quiros MD Work Phone: [facility] 03-13-2024 13:08-0500 Body weight 76.66 kg Mike Quiros MD Work Phone: [facility] 03-13-2024 13:08-0500 Diastolic blood pressure 57 mm[Hg] Mike Quiros MD Work Phone: [phone] 03-13-2024 13:08-0500 Heart rate 75 /min Mike Quiros MD Work Phone: [facility] 03-13-2024 13:08-0500 Respiratory rate 18 /min Mike Quiros MD Work Phone: [facility] 03-13-2024 13:08-0500 Systolic blood pressure 120 mm[Hg] Mike Quiros MD Work Phone: [facility] 02-09-2024 10:00-0400 Body height 168.9 cm Trang Mcclain APRN.DEVELOPMENT TECHNICIAN Work Phone: [facility] 02-09-2024 10:00-0400 Body mass index (BMI) [Ratio] 26.49 kg/m2 Trang Mcclain APRN.DEVELOPMENT TECHNICIAN Work Phone: [facility] 02-09-2024 10:00-0400 Body weight 75.57 kg Trang Mcclain APRN.DEVELOPMENT TECHNICIAN Work Phone: [facility] 02-09-2024 10:00-0400 Diastolic blood pressure 85 mm[Hg] Trang Mcclain APRN.DEVELOPMENT TECHNICIAN Work Phone: [facility] 02-09-2024 10:00-0400 Systolic blood pressure 132 mm[Hg] Trang Mcclain APRN.DEVELOPMENT TECHNICIAN Work Phone: [facility] 01-10-2024 11:07-0400 Body mass index (BMI) [Ratio] 26.47 kg/m2 Nurse Wstr Work Phone: [facility] 01-10-2024 11:07-0400 Body weight 76.66 kg Nurse Wstr Work Phone: [facility] 01-10-2024 11:07-0400 Diastolic blood pressure 70 mm[Hg] Nurse Wstr Work Phone: [facility] 01-10-2024 11:07-0400 Systolic blood pressure 138 mm[Hg] Nurse Wstr Work Phone: [facility] 10-18-2023 10:54-0400 Body mass index (BMI) [Ratio] 25.37 kg/m2 Nurse Wstr Work Phone: [facility] 10-18-2023 10:54-0400 Body weight 73.48 kg Nurse Wstr Work Phone: [facility] 10-18-2023 10:54-0400 Diastolic blood pressure 74 mm[Hg] Nurse Wstr Work Phone: [facility] 10-18-2023 10:54-0400 Systolic blood pressure 112 mm[Hg] Nurse Wstr Work Phone: [facility] 09-09-2023 10:13-0400 Diastolic Blood Pressure Non-Invasive 67 mm[Hg] GEOFFREY HUTTON ETIQUETTE COACH-DEVELOPMENT TECHNICIAN [facility] 09-09-2023 10:13-0400 Heart rate 62 /min GEOFFREY HUTTON ETIQUETTE COACH-DEVELOPMENT TECHNICIAN [facility] 09-09-2023 10:13-0400 Systolic Blood Pressure Non-Invasive 109 mm[Hg] GEOFFREY HUTTON ETIQUETTE COACH-DEVELOPMENT TECHNICIAN [address] [place] [id number] 09-09-2023 10:01-0400 Diastolic Blood Pressure Non-Invasive 67 mm[Hg] GEOFFREY FISH ETIQUETTE COACH-DEVELOPMENT TECHNICIAN [address] [place] [address] 09-09-2023 10:01-0400 Heart rate 70 /min GEOFFREY FISH ETIQUETTE COACH-DEVELOPMENT TECHNICIAN [address] [place] [id number] 09-09-2023 10:01-0400 Systolic Blood Pressure Non-Invasive 109 mm[Hg] GEOFFREY FISH ETIQUETTE COACH-DEVELOPMENT TECHNICIAN [address] [place] [address] 09-09-2023 09:50-0400 Diastolic Blood Pressure Non-Invasive 64 mm[Hg] GEOFFREY FISH ETIQUETTE COACH-DEVELOPMENT TECHNICIAN [address] [place] [address] 09-09-2023 09:50-0400 Heart rate 60 /min GEOFFREY FISH ETIQUETTE COACH-DEVELOPMENT TECHNICIAN [address] [place] [address] 09-09-2023 09:50-0400 Systolic Blood Pressure Non-Invasive 113 mm[Hg] GEOFFREY FISH ETIQUETTE COACH-DEVELOPMENT TECHNICIAN [address] [place] [address] 09-09-2023 09:01-0400 Heart rate 65 /min GEOFFREY FISH ETIQUETTE COACH-DEVELOPMENT TECHNICIAN [address] [place] [address] 09-09-2023 08:10-0400 Body temperature 97.7 [degF] GEOFFREY FISH ETIQUETTE COACH-DEVELOPMENT TECHNICIAN [address] [place] [id number] 09-09-2023 08:10-0400 Respiratory rate 16 /min GEOFFREY FISH ETIQUETTE COACH-DEVELOPMENT TECHNICIAN [address] [place] [id number] 09-05-2023 14:32-0400 Body height 171 cm GEOFFREY FISH ETIQUETTE COACH-DEVELOPMENT TECHNICIAN [address] [place] [id number] 09-05-2023 14:32-0400 Body weight 72.7 kg GEOFFREY FISH ETIQUETTE COACH-DEVELOPMENT TECHNICIAN [address] [place] [id number] 09-05-2023 14:32-0400 Body weight 24.86 kg/m2 GEOFFREY FISH ETIQUETTE COACH-DEVELOPMENT TECHNICIAN [facility] 08-23-2023 14:50-0400 Body mass index (BMI) [Ratio] 24.87 kg/m2 Mike Quiros MD Work Phone: [facility] 08-23-2023 14:50-0400 Body weight 72.03 kg Mike Quiros MD Work Phone: [facility] 08-23-2023 14:50-0400 Diastolic blood pressure 58 mm[Hg] Mike Quiros MD Work Phone: [facility] 08-23-2023 14:50-0400 Heart rate 89 /min Mike Quiros MD Work Phone: [facility] 08-23-2023 14:50-0400 Systolic blood pressure 137 mm[Hg] Mike Quiros MD Work Phone: [facility] 07-21-2023 13:21-0400 Diastolic blood pressure 64 mm[Hg] Dr. Olman Son Work Phone: [facility] 07-21-2023 13:21-0400 Heart rate 64 /min Dr. Olman Son Work Phone: [facility] 07-21-2023 13:21-0400 Respiratory rate 14 /min Dr. Olman Son Work Phone: [facility] 07-21-2023 13:21-0400 Systolic blood pressure 107 mm[Hg] Dr. Olman Son Work Phone: [facility] 07-21-2023 12:54-0400 Body height 170.[address] Olman Son Work Phone: [facility] 07-21-2023 12:54-0400 Body mass index (BMI) [Ratio] 24.1 kg/m2 Dr. Olman Son Work Phone: [facility] 07-21-2023 12:54-0400 Body weight 69.[address] Olman Son Work Phone: [facility] 07-21-2023 12:54-0400 SaO2% (BldA) [Mass fraction] 99 % Dr. Olman Son Work Phone: [facility] 07-19-2023 15:56-0400 Body weight 69.85 kg Nurse Wstr Work Phone: [facility] 07-11-2023 13:10-0500 Body height 170.[address] Olman Son Work Phone: [facility] 07-11-2023 13:10-0500 Body weight 68.[address] Olman Son Work Phone: [facility] 07-11-2023 13:10-0500 Heart rate 76 /min Dr. Olman Son Work Phone: [facility] 07-11-2023 13:10-0500 SaO2% (BldA) [Mass fraction] 98 % Dr. Olman Son Work Phone: [facility] 06-27-2023 05:42-0500 Body mass index (BMI) [Ratio] 24.5 kg/m2 Dr. Olman Son Work Phone: [facility] 06-27-2023 05:42-0500 Body temperature 98.2 [degF] Dr. Olman Son Work Phone: [facility] 06-27-2023 05:42-0500 Body weight 70.[address] Olman Son Work Phone: [facility] 06-27-2023 05:42-0500 Diastolic blood pressure 68 mm[Hg] Dr. Olman Son Work Phone: [facility] 06-27-2023 05:42-0500 Heart rate 80 /min Dr. Olman Son Work Phone: [facility] 06-27-2023 05:42-0500 Respiratory rate 18 /min Dr. Olman Son Work Phone: [facility] 06-27-2023 05:42-0500 SaO2% (BldA) [Mass fraction] 99 % Dr. Olman Son Work Phone: [facility] 06-27-2023 05:42-0500 Systolic blood pressure 117 mm[Hg] Dr. Olman Son Work Phone: [facility] 06-05-2023 13:05-0500 Body temperature 98.4 [degF] Dr. Olman Son Work Phone: [facility] 06-05-2023 13:05-0500 Body weight 70.[address] Olman Son Work Phone: [facility] 06-05-2023 13:05-0500 Diastolic blood pressure 70 mm[Hg] Dr. Olman Son Work Phone: [facility] 06-05-2023 13:05-0500 Heart rate 80 /min Dr. Olman Son Work Phone: [facility] 06-05-2023 13:05-0500 Respiratory rate 12 /min Dr. Olman Son Work Phone: [facility] 06-05-2023 13:05-0500 SaO2% (BldA) [Mass fraction] 98 % Dr. Olman Son Work Phone: [facility] 06-05-2023 13:05-0500 Systolic blood pressure 100 mm[Hg] Dr. Olman Son Work Phone: [facility] 05-04-2023 12:45-0500 Body mass index (BMI) [Ratio] 23.6 kg/m2 Dr. Olman Son Work Phone: [facility] 05-04-2023 12:45-0500 Body temperature 98 [degF] Dr. Olman Son Work Phone: [facility] 05-04-2023 12:45-0500 Body weight 68.[address] Olman Son Work Phone: [facility] 05-04-2023 12:45-0500 Diastolic blood pressure 60 mm[Hg] Dr. Olman Son Work Phone: [facility] 05-04-2023 12:45-0500 Heart rate 81 /min Dr. Olman Son Work Phone: [facility] 05-04-2023 12:45-0500 Respiratory rate 17 /min Dr. Olman Son Work Phone: [facility] 05-04-2023 12:45-0500 SaO2% (BldA) [Mass fraction] 99 % Dr. Olman Son Work Phone: [facility] 05-04-2023 12:45-0500 Systolic blood pressure 110 mm[Hg] Dr. Olman Son Work Phone: [facility] 03-16-2023 00:05-0500 Blood Pressure Cuff Size LUIS F KUMAR MD [facility] 03-16-2023 00:05-0500 Blood Pressure Location LUIS F KUMAR MD [facility] 03-16-2023 00:05-0500 Blood Pressure Method LUIS F KUAMR MD [facility] 03-16-2023 00:05-0500 Diastolic Blood Pressure Non-Invasive 81 1 LUIS F KUMAR MD [facility] 03-16-2023 00:05-0500 Heart rate 68 /min LUIS F KUMAR MD [facility] 03-16-2023 00:05-0500 Respiratory rate 18 /min LUIS F KUMAR MD [facility] 03-16-2023 00:05-0500 Systolic Blood Pressure Non-Invasive 113 1 LUIS F KUMAR MD [facility] 03-15-2023 22:42-0500 Body temperature 97.88 [degF] LUIS F KUMAR MD [facility] 03-15-2023 22:42-0500 Diastolic Blood Pressure Non-Invasive 72 1 LUIS F KUMAR MD [facility] 03-15-2023 22:42-0500 Heart rate 77 /min LUIS F KUMAR MD [facility] 03-15-2023 22:42-0500 Respiratory rate 22 /min LUIS F KUMAR MD [facility] 03-15-2023 22:42-0500 Systolic Blood Pressure Non-Invasive 119 1 LUIS F KUMAR MD [facility] 02-22-2023 14:56-0400 Body height 170.2 cm Mike Quiros MD Work Phone: [facility] 02-22-2023 14:56-0400 Body mass index (BMI) [Ratio] 24.59 kg/m2 Mike Quiros MD Work Phone: [facility] 02-22-2023 14:56-0400 Body weight 71.22 kg Mike Quiros MD Work Phone: [facility] 02-22-2023 14:56-0400 Diastolic blood pressure 57 mm[Hg] Mike Quiros MD Work Phone: [facility] 02-22-2023 14:56-0400 Heart rate 70 /min Mike Quirso MD Work Phone: [facility] 02-22-2023 14:56-0400 Respiratory rate 16 /min Mike Quiros MD Work Phone: [facility] 02-22-2023 14:56-0400 Systolic blood pressure 114 mm[Hg] Mike Quiros MD Work Phone: [facility] 12-29-2022 13:05-0400 Body height 170.[address] Olman Son Work Phone: [facility] 12-29-2022 13:05-0400 Body mass index (BMI) [Ratio] 24.5 kg/m2 Dr. Olman Son Work Phone: [facility] 12-29-2022 13:05-0400 Body temperature 98.4 [degF] Dr. Olman Son Work Phone: [facility] 12-29-2022 13:05-0400 Body weight 71.[address] Olman Son Work Phone: [facility] 12-29-2022 13:05-0400 Diastolic blood pressure 60 mm[Hg] Dr. Olman Son Work Phone: [facility] 12-29-2022 13:05-0400 Heart rate 74 /min Dr. Olman Son Work Phone: [facility] 12-29-2022 13:05-0400 Respiratory rate 17 /min Dr. Olman Son Work Phone: [facility] 12-29-2022 13:05-0400 SaO2% (BldA) [Mass fraction] 96 % Dr. Olman Son Work Phone: [facility] 12-29-2022 13:05-0400 Systolic blood pressure 88 mm[Hg] Dr. Olman Son Work Phone: [facility] 12-29-2022 10:15-0400 Body temperature 97.6 [degF] Dr. Olman Son Work Phone: [facility] 12-29-2022 10:15-0400 Diastolic blood pressure 54 mm[Hg] Dr. Olman Son Work Phone: [facility] 12-29-2022 10:15-0400 Heart rate 59 /min Dr. Olman Son Work Phone: [facility] 12-29-2022 10:15-0400 Respiratory rate 16 /min Dr. Olman Son Work Phone: [facility] 12-29-2022 10:15-0400 SaO2% (BldA) [Mass fraction] 100 % Dr. Olman Son Work Phone: [facility] 12-29-2022 10:15-0400 Systolic blood pressure 108 mm[Hg] Dr. Olman Son Work Phone: [facility] 12-29-2022 08:01-0400 Body height 170.[address] Olman Son Work Phone: [facility] 12-29-2022 08:01-0400 Body mass index (BMI) [Ratio] 24.1 kg/m2 Dr. Olman Son Work Phone: [facility] 12-29-2022 08:01-0400 Body weight [address] Olman Son Work Phone: [facility] 12-27-2022 15:54-0400 Body height 170.2 cm Trang Mcclain APRN.DEVELOPMENT TECHNICIAN Work Phone: [facility] 12-27-2022 15:54-0400 Body weight 70.31 kg Trang Mcclain APRN.DEVELOPMENT TECHNICIAN Work Phone: [facility] 12-27-2022 15:54-0400 Diastolic blood pressure 62 mm[Hg] Trang Mcclain APRN.DEVELOPMENT TECHNICIAN Work Phone: [facility] 12-27-2022 15:54-0400 Systolic blood pressure 104 mm[Hg] Trang Mcclain APRN.DEVELOPMENT TECHNICIAN Work Phone: [facility] 12-01-2022 09:31-0400 Body temperature 98.6 [degF] DR RITU QUINTEROS MD [facility] 12-01-2022 09:31-0400 Body weight 69.[address] RITU QUINTEROS MD [facility] 12-01-2022 09:31-0400 Diastolic Blood Pressure Non-Invasive [address] RITU QUINTEROS MD [facility] 12-01-2022 09:31-0400 Heart rate 91 /min DR RITU QUINTEROS MD [facility] 12-01-2022 09:31-0400 Respiratory rate 16 /min DR RITU QIUNTEROS MD [facility] 12-01-2022 09:31-0400 Systolic Blood Pressure Non-Invasive [address] RITU QUINTEROS MD [facility] 11-24-2022 13:46-0400 Body weight 73.48 kg Nurse Wstr Work Phone: [facility] 11-24-2022 13:46-0400 Diastolic blood pressure 74 mm[Hg] Nurse Wstr Work Phone: [facility] 11-24-2022 13:46-0400 Systolic blood pressure 112 mm[Hg] Nurse Wstr Work Phone: [facility] 11-24-2022 13:05-0400 Body mass index (BMI) [Ratio] 25.4 kg/m2 Dr. Olman Son Work Phone: [facility] 11-24-2022 13:05-0400 Body temperature 98.7 [degF] Dr. Olman Son Work Phone: [facility] 11-24-2022 13:05-0400 Body weight 73.[address] Olman Son Work Phone: [facility] 11-24-2022 13:05-0400 Diastolic blood pressure 70 mm[Hg] Dr. Olman Son Work Phone: [facility] 11-24-2022 13:05-0400 Heart rate 79 /min Dr. Olman Son Work Phone: [facility] 11-24-2022 13:05-0400 Respiratory rate 16 /min Dr. Olman Son Work Phone: [facility] 11-24-2022 13:05-0400 SaO2% (BldA) [Mass fraction] 98 % Dr. Olman Son Work Phone: [facility] 11-24-2022 13:05-0400 Systolic blood pressure 106 mm[Hg] Dr. Olman Son Work Phone: [facility] 10-20-2022 13:05-0400 Body temperature 98 [degF] Dr. Olman Son Work Phone: [facility] 10-20-2022 13:05-0400 Diastolic blood pressure 60 mm[Hg] Dr. Olman Son Work Phone: [facility] 10-20-2022 13:05-0400 Heart rate 88 /min Dr. Olman Son Work Phone: [facility] 10-20-2022 13:05-0400 Respiratory rate 17 /min Dr. Olman Son Work Phone: [facility] 10-20-2022 13:05-0400 SaO2% (BldA) [Mass fraction] 98 % Dr. Olman Son Work Phone: [facility] 10-20-2022 13:05-0400 Systolic blood pressure 100 mm[Hg] Dr. Olman Son Work Phone: [facility] 10-05-2022 08:45-0400 Body mass index (BMI) [Ratio] 23.9 kg/m2 Dr. Olman Son Work Phone: [facility] 10-05-2022 08:45-0400 Body temperature 97.7 [degF] Dr. Olman Son Work Phone: [facility] 10-05-2022 08:45-0400 Body weight 69.[address] Olman Son Work Phone: [facility] 10-05-2022 08:45-0400 Diastolic blood pressure 64 mm[Hg] Dr. Olman Son Work Phone: [facility] 10-05-2022 08:45-0400 Heart rate 80 /min Dr. Olman Son Work Phone: [facility] 10-05-2022 08:45-0400 Respiratory rate 18 /min Dr. Olman Son Work Phone: [facility] 10-05-2022 08:45-0400 Systolic blood pressure 104 mm[Hg] Dr. Olman Son Work Phone: [facility] 09-19-2022 14:44-0400 Body mass index (BMI) [Ratio] 24.7 kg/m2 Dr. Olman Son Work Phone: [facility] 09-19-2022 14:44-0400 Body temperature 98.4 [degF] Dr. Olman Son Work Phone: [facility] 09-19-2022 14:44-0400 Body weight 71.[address] Olman Son Work Phone: [facility] 09-19-2022 14:44-0400 Diastolic blood pressure 50 mm[Hg] Dr. Olman Son Work Phone: [facility] 09-19-2022 14:44-0400 Heart rate 87 /min Dr. Olman Son Work Phone: [facility] 09-19-2022 14:44-0400 Respiratory rate 16 /min Dr. Olman Son Work Phone: [facility] 09-19-2022 14:44-0400 SaO2% (BldA) [Mass fraction] 97 % Dr. Olman Son Work Phone: [facility] 09-19-2022 14:44-0400 Systolic blood pressure 94 mm[Hg] Dr. Olman Son Work Phone: [facility] 09-15-2022 14:29-0400 Body weight 72.58 kg Nurse Wstr Work Phone: [facility] 09-15-2022 14:29-0400 Diastolic blood pressure 62 mm[Hg] Nurse Wstr Work Phone: [facility] 09-15-2022 14:29-0400 Systolic blood pressure 100 mm[Hg] Nurse Wstr Work Phone: [facility] 09-05-2022 09:23-0400 Body mass index (BMI) [Ratio] 26.2 kg/m2 Dr. Olman Sno Work Phone: [facility] 09-05-2022 09:23-0400 Body temperature 98.2 [degF] Dr. Olman Son Work Phone: [facility] 09-05-2022 09:23-0400 Body weight 75.[address] Olman Son Work Phone: [facility] 09-05-2022 09:23-0400 Diastolic blood pressure 75 mm[Hg] Dr. Olman Son Work Phone: [facility] 09-05-2022 09:23-0400 Heart rate 88 /min Dr. Olman Son Work Phone: [facility] 09-05-2022 09:23-0400 Respiratory rate 16 /min Dr. Olman Son Work Phone: [facility] 09-05-2022 09:23-0400 SaO2% (BldA) [Mass fraction] 97 % Dr. Olman Son Work Phone: [facility] 09-05-2022 09:23-0400 Systolic blood pressure 120 mm[Hg] Dr. Olman Son Work Phone: [facility] 08-10-2022 14:27-0400 Body mass index (BMI) [Ratio] 26.22 kg/m2 Brooke Dugan APRN-AUGUSTINE Work Phone: [facility] 08-10-2022 14:27-0400 Body weight 75.93 kg Brooke Dugan ETIQUETTE COACH-DEVELOPMENT TECHNICIAN Work Phone: [facility] 08-10-2022 14:27-0400 Diastolic blood pressure 57 mm[Hg] Brooke Dugan ETIQUETTE COACH-DEVELOPMENT TECHNICIAN Work Phone: [facility] 08-10-2022 14:27-0400 Heart rate 72 /min Brooke Dugan ETIQUETTE COACH-DEVELOPMENT TECHNICIAN Work Phone: [facility] 08-10-2022 14:27-0400 Systolic blood pressure 118 mm[Hg] Brooke Dugan ETIQUETTE COACH-DEVELOPMENT TECHNICIAN Work Phone: [facility] 07-07-2022 11:22-0500 Body weight 77.11 kg Trang Mcclain APRN.DEVELOPMENT TECHNICIAN Work Phone: [facility] 07-07-2022 11:22-0500 Diastolic blood pressure 62 mm[Hg] Trang Mcclain APRN.DEVELOPMENT TECHNICIAN Work Phone: [facility] 07-07-2022 11:22-0500 Systolic blood pressure 108 mm[Hg] Trang Mccalin APRN.DEVELOPMENT TECHNICIAN Work Phone: [facility] 06-10-2022 14:12-0500 Heart rate 73 /min Dr. Olman Son Work Phone: [facility] 06-10-2022 14:12-0500 Respiratory rate 17 /min Dr. Olman Son Work Phone: [facility] 06-10-2022 14:12-0500 SaO2% (BldA) [Mass fraction] 98 % Dr. Olman Son Work Phone: [facility] 06-10-2022 10:17-0500 Body height 170.[address] Olman Son Work Phone: [facility] 06-10-2022 10:17-0500 Body mass index (BMI) [Ratio] 27.1 kg/m2 Dr. Olman Son Work Phone: [facility] 06-10-2022 10:17-0500 Body temperature 97.1 [degF] Dr. Olman Son Work Phone: [facility] 06-10-2022 10:17-0500 Body weight 78.[address] Olman Son Work Phone: [facility] 06-10-2022 10:17-0500 Diastolic blood pressure 67 mm[Hg] Dr. Olman Son Work Phone: [facility] 06-10-2022 10:17-0500 Systolic blood pressure 133 mm[Hg] Dr. Olman Son Work Phone: [facility] 05-19-2022 10:17-0500 Body mass index (BMI) [Ratio] 26.6 kg/m2 Dr. Olman Son Work Phone: [facility] 05-19-2022 10:17-0500 Body temperature 99.3 [degF] Dr. Olman Son Work Phone: [facility] 05-19-2022 10:17-0500 Body weight 77.[address] Olman Son Work Phone: [facility] 05-19-2022 10:17-0500 Diastolic blood pressure 60 mm[Hg] Dr. Olman Son Work Phone: [facility] 05-19-2022 10:17-0500 Heart rate 70 /min Dr. Olman Son Work Phone: [facility] 05-19-2022 10:17-0500 Respiratory rate 16 /min Dr. Olman Son Work Phone: [facility] 05-19-2022 10:17-0500 SaO2% (BldA) [Mass fraction] 98 % Dr. Olman Son Work Phone: [facility] 05-19-2022 10:17-0500 Systolic blood pressure 90 mm[Hg] Dr. Olman Son Work Phone: [facility] 04-27-2022 09:02-0500 Body weight 78.93 kg Nurse Wstr Work Phone: [facility] 04-27-2022 09:02-0500 Diastolic blood pressure 78 mm[Hg] Nurse Wstr Work Phone: [facility] 04-27-2022 09:02-0500 Systolic blood pressure 110 mm[Hg] Nurse Wstr Work Phone: [facility] 04-22-2022 15:33-0500 Body height 170.[address] Olman Son Work Phone: [facility] Work Phone: 04-22-2022 15:33-0500 Body mass index (BMI) [Ratio] 26.6 kg/m2 Dr. Olman Son Work Phone: [facility] 04-22-2022 15:33-0500 Body weight 77.[address] Olman Son Work Phone: [facility] 04-12-2022 15:50-0500 Body height 170.[address] Olman Son Work Phone: [facility] Work Phone: 04-12-2022 15:50-0500 Body mass index (BMI) [Ratio] 26.5 kg/m2 Dr. Olman Son Work Phone: [facility] 04-12-2022 15:50-0500 Body temperature 97 [degF] Dr. Olman Son Work Phone: [facility] 04-12-2022 15:50-0500 Body weight 76.[address] Olman Son Work Phone: [facility] 04-12-2022 15:50-0500 Diastolic blood pressure 82 mm[Hg] Dr. Olman Son Work Phone: [facility] 04-12-2022 15:50-0500 Heart rate 87 /min Dr. Olman Son Work Phone: [facility] 04-12-2022 15:50-0500 Respiratory rate 18 /min Dr. Olman Son Work Phone: [facility] 04-12-2022 15:50-0500 SaO2% (BldA) [Mass fraction] 97 % Dr. Olman Son Work Phone: [facility] 04-12-2022 15:50-0500 Systolic blood pressure 118 mm[Hg] Dr. Olman Son Work Phone: [facility] 04-05-2022 15:26-0500 Body height 170.2 cm Laquita Sweneey DO Work Phone: [facility] 04-05-2022 15:26-0500 Body weight 77.11 kg Laquita Sweeney DO Work Phone: [facility] 04-05-2022 15:26-0500 Diastolic blood pressure 60 mm[Hg] Laquita Sweeney DO Work Phone: [facility] 04-05-2022 15:26-0500 Heart rate 82 /min Laquita Sweeney DO Work Phone: [facility] 04-05-2022 15:26-0500 SaO2% (BldA) [Mass fraction] 97 % Laquita Sweeney DO Work Phone: [facility] 04-05-2022 15:26-0500 Systolic blood pressure 102 mm[Hg] Laquita Sweeney DO Work Phone: [facility] 02-15-2022 11:16-0400 Body height 170.2 cm Laquita Sweeney DO Work Phone: [facility] 02-15-2022 11:16-0400 Body weight 79.83 kg Laquita Sweeney DO Work Phone: [facility] 02-15-2022 11:16-0400 Diastolic blood pressure 67 mm[Hg] Laquita Sweeney DO Work Phone: [facility] 02-15-2022 11:16-0400 Heart rate 80 /min Laquita Sweeney DO Work Phone: [facility] 02-15-2022 11:16-0400 SaO2% (BldA) [Mass fraction] 98 % Laquita Sweeney DO Work Phone: [facility] 02-15-2022 11:16-0400 Systolic blood pressure 111 mm[Hg] Laquita Sweeney DO Work Phone: [facility] 02-09-2022 15:34-0400 Body weight 78.93 kg Nurse Wstr Work Phone: [facility] 01-17-2022 14:32-0400 Body mass index (BMI) [Ratio] 27.8 kg/m2 Dr. Olman Son Work Phone: [facility] Work Phone: 01-17-2022 14:32-0400 Body weight 80.[address] Olman Son Work Phone: [facility] Work Phone: 12-23-2021 14:44-0400 Body weight 81.38 kg Betsey Espinoza MD Work Phone: [facility] 12-23-2021 14:44-0400 Diastolic blood pressure 60 mm[Hg] Betsey Espionza MD Work Phone: [facility] 12-23-2021 14:44-0400 Systolic blood pressure 112 mm[Hg] Betsey Espinoza MD Work Phone: [facility] 12-15-2021 16:07-0400 Body temperature 99.14 [degF] MAKSIM VASQUEZ MD [facility] 12-15-2021 16:07-0400 Diastolic blood pressure 72 mm[Hg] MAKSIM VASQUEZ MD [facility] 12-15-2021 16:07-0400 Heart rate 94 /min MAKSIM VASQUEZ MD [facility] 12-15-2021 16:07-0400 Mean blood pressure 84 mm[Hg] MAKSIM VASQUEZ MD [facility] 12-15-2021 16:07-0400 Respiratory rate 16 /min MAKSIM VASQUEZ MD [facility] 12-15-2021 16:07-0400 Systolic blood pressure 107 mm[Hg] MAKSIM VASQUEZ MD [facility] 12-08-2021 14:41-0400 Body height 170.2 cm Trang Mcclain APRN.DEVELOPMENT TECHNICIAN Work Phone: [facility] 12-08-2021 14:41-0400 Body weight 81.19 kg Trang Mcclain APRN.DEVELOPMENT TECHNICIAN Work Phone: [facility] 12-08-2021 14:41-0400 Diastolic blood pressure 62 mm[Hg] Trang Mcclain APRN.DEVELOPMENT TECHNICIAN Work Phone: [facility] 12-08-2021 14:41-0400 Systolic blood pressure 100 mm[Hg] Trang Mcclain APRN.DEVELOPMENT TECHNICIAN Work Phone: [facility] 11-24-2021 13:52-0400 Body weight 83.92 kg Trang Mcclain APRN.DEVELOPMENT TECHNICIAN Work Phone: [facility] 11-24-2021 13:52-0400 Diastolic blood pressure 68 mm[Hg] Trang Mcclain APRN.DEVELOPMENT TECHNICIAN Work Phone: [facility] 11-24-2021 13:52-0400 Systolic blood pressure 108 mm[Hg] Trang Mcclain APRN.DEVELOPMENT TECHNICIAN Work Phone: [facility] 09-09-2021 14:21-0400 Body mass index (BMI) [Ratio] 31.58 kg/m2 Crystal Olesya ETIQUETTE COACH-DEVELOPMENT TECHNICIAN Work Phone: [facility] 09-09-2021 14:21-0400 Body temperature 97.11 [degF] Dipika Dacosta ETIQUETTE COACH-DEVELOPMENT TECHNICIAN Work Phone: [facility] 09-09-2021 14:21-0400 Body weight 91.44 kg Dipika Dacosta ETIQUETTE COACH-DEVELOPMENT TECHNICIAN Work Phone: [facility] 09-09-2021 14:21-0400 Diastolic blood pressure 84 mm[Hg] Dipika Dacosta ETIQUETTE COACH-DEVELOPMENT TECHNICIAN Work Phone: [facility] 09-09-2021 14:21-0400 Heart rate 77 /min Dipika Dacosta ETIQUETTE COACH-DEVELOPMENT TECHNICIAN Work Phone: [facility] 09-09-2021 14:21-0400 Systolic blood pressure 116 mm[Hg] Dipika Dacosta ETIQUETTE COACH-DEVELOPMENT TECHNICIAN Work Phone: [facility] 09-03-2021 13:59-0400 Body mass index (BMI) [Ratio] 31.29 kg/m2 [facility] Apprentice Funeral Director Depo Provera [facility] 09-03-2021 13:59-0400 Body weight 90.63 kg [facility] Depo Provera [facility] 09-03-2021 13:59-0400 Diastolic blood pressure 66 mm[Hg] [facility] Apprentice Funeral Director Depo Provera [facility] 09-03-2021 13:59-0400 Heart rate 77 /min [facility] Apprentice Funeral Director Depo Provera [facility] 09-03-2021 13:59-0400 Systolic blood pressure 116 mm[Hg] [facility] Apprentice Funeral Director Depo Provera [facility] 08-28-2021 15:56-0400 Body mass index (BMI) [Ratio] 32.5 kg/m2 MD Isadora García MD [facility] 08-28-2021 15:56-0400 Body weight 91.6 kg MD Isadora García MD [facility] 12-10-2020 15:37-0400 Body mass index (BMI) [Ratio] 36.12 kg/m2 Resident [employer] Work Phone: [facility] 12-10-2020 15:37-0400 Body weight 104.6 kg Resident [employer] Work Phone: [facility] 12-10-2020 15:37-0400 Diastolic blood pressure 55 mm[Hg] Resident [employer] Work Phone: [facility] 12-10-2020 15:37-0400 Heart rate 83 /min Resident [employer] Work Phone: [facility] 12-10-2020 15:37-0400 Systolic blood pressure 109 mm[Hg] Resident [employer] Work Phone: [facility] 07-25-2018 06:26-0400 Body Temperature 97.59 [degF] [facility] 07-25-2018 06:26-0400 BP Diastolic 76 mm[Hg] [facility] 07-25-2018 06:26-0400 BP Systolic 127 mm[Hg] [facility] 07-25-2018 06:26-0400 Pulse (Heart Rate) 79 /min [facility] 07-25-2018 06:26-0400 Pulse Oximetry 97 % [facility] 07-25-2018 06:26-0400 Respiratory Rate 16 /min [facility] 07-24-2018 16:02-0400 BMI (Body Mass Index) 34.14 kg/m2 [facility] 07-24-2018 16:02-0400 Height 170.2 cm [facility] 07-24-2018 16:02-0400 Weight 98.88 kg [facility] 07-12-2018 21:42-0500 BMI (Body Mass Index) 34.36 kg/m2 Arnav Castaneda [facility] 07-12-2018 21:42-0500 Body Temperature 98.4 [degF] Arnav Castaneda [facility] 07-12-2018 21:42-0500 Body weight 99.5 kg Arnav Castaneda [facility] 07-12-2018 21:42-0500 BP Diastolic 48 mm[Hg] Arnav Castaneda [facility] 07-12-2018 21:42-0500 BP Systolic 113 mm[Hg] Arnav Castaneda [facility] 07-12-2018 21:42-0500 Height 170.2 cm Arnav Castaneda [facility] 07-12-2018 21:42-0500 Pulse (Heart Rate) 88 /min Arnav Castaneda [facility] 07-12-2018 21:42-0500 Pulse Oximetry 96 % Arnav Castaneda [facility] 07-12-2018 21:42-0500 Respiratory Rate 16 /min Arnav Castaneda [facility] 07-04-2018 00:43-0500 Respiratory Rate 14 /min [facility] 07-03-2018 22:29-0500 Body Temperature 97.59 [degF] [facility] 07-03-2018 22:29-0500 BP Diastolic 71 mm[Hg] [facility] 07-03-2018 22:29-0500 BP Systolic 112 mm[Hg] [facility] 07-03-2018 22:29-0500 Pulse (Heart Rate) 82 /min [facility] 07-03-2018 22:29-0500 Pulse Oximetry 98 % [facility] Encounters Encounter Date Encounter Type Care Provider Facility Start: 10-14-2024 ambulatory [facility] Facility:[facility] Start: 10-09-2024 End: 10-09-2024 Office outpatient visit 25 minutes Mike Quiros MD Work Phone: Obstetrics and Gynecology [facility] Comment on above: Pelvic floor weaknes s in female (Primary Dx); Mixed stress and urge urinary incontinence; Enuresis; Constipation, unspecified constipation type Start: 10-09-2024 ambulatory MIKE QUIROS Facility :[facility] Start: 09-13-[address] OLMAN SON DO Facili ty:[facility] Start: 08-28-2024 End: 08-28-[address] OLMAN SON DO Facility:[facility] Start: 08-28-2024 End: 08-28-[address] OLMAN SON DO [facility] Start: 08-21-2024 End: 08-21-2024 Nursing evaluation of patient and report Nurse Battery Container Tester [facility] Work Phone: OB/Gynecology Comment on above: Encounter for manage ment and injection of depo-Provera (Primary Dx) Start: 08-21-2024 End: 08-21-2024 ambulatory OLMAN SON Facility:[facility] Start: 08-09-2024 End: 08-09-2024 ambulatory Trang Mcclain APRN.DEVELOPMENT TECHNICIAN Work Phone: OB/Gynecology Comment on above: Isidra zaldivar Start: 07-04-2024 ambulatory FABIOLA COATS Facility :[facility] Start: 07-04-2024 End: 07-04-2024 Office outpatient new 30 minutes Fabiola Coats ETIQUETTE COACH-DEVELOPMENT TECHNICIAN Work Phone: [facility] Comment on above: Encounter to [facility] (Primary Dx); Unintentional weight loss; Bipolar 2 disorder; Need for dental care; Moderate cigarette smoker Start: 06-12-2024 End: 06-12-2024 ambulatory OLMAN SON Facility:[facility] Start: 06-12-2024 End: 06-12-2024 Nursing evaluation of patient and report Nurse Battery Container Tester [facility] Work Phone: OB/Gynecology Comment on above: Depo-Provera contrac eptive status (Primary Dx) Start: 05-20-2024 End: 05-20-2024 ambulatory Peterson Patterson Facility:[facility] Start: 05-17-2024 End: 05-17-[address] OLMAN SON DO Facility:[facility] Start: 05-17-2024 End: 05-17-[address] OLMAN SON DO [facility] Start: 04-18-2024 End: 04-18-2024 ambulatory Peterson Patterson Facility:[facility] Start: 04-03-2024 End: 04-03-2024 Nursing evaluation of patient and report Nurse Battery Container Tester [facility] Work Phone: OB/Gynecology Comment on above: Encounter for manage ment and injection of depo-Provera (Primary Dx) Start: 04-03-2024 End: 04-03-2024 ambulatory OLMAN SON Facility:[facility] Start: 03-29-2024 End: 04-02-[address] [facility]MAN S[facility] DO [facility] Start: 03-29-2024 End: 04-02-[address] OLMAN SON DO Facility:[facility] Start: 03-29-2024 End: 03-29-[address] OLMAN SON DO [facility] Start: 03-18-2024 End: 03-18-2024 [facility] Start: 03-13-2024 ambulatory MIKE QUIROS Facility :[facility] Start: 03-13-2024 End: 04-07-2024 Office outpatient visit 25 minutes Mike Quiros MD Work Phone: Obstetrics and Gynecology [facility] Comment on above: Mixed stress and urg e urinary incontinence (Primary Dx); Gastroesophageal reflux disease, unspecified whether esophagitis present; Enuresis Start: 02-15-2024 End: 02-19-2024 Telephone encounter Trang Mcclain APRN.CNP Work Phone: OB/Gynecology Comment on above: Results Start: 02-15-2024 End: 02-15-2024 ambulatory [facility] Facility[facility] Start: 02-09-2024 End: 02-09-2024 ambulatory TRANG MCCLAIN Facility:[facility] Start: 02-09-2024 End: 02-09-2024 Patient encounter procedure Trang Mcclain APRN.CNP Work Phone: OB/Gynecology Comment on above: Encounter for gyneco logical examination (general) (routine) without abnormal findings (Primary Dx); Surveillance for Depo-Provera contraception; Screening for cervical cancer; Encounter for screening for human papillomavirus (HPV) Start: 02-09-2024 End: 02-09-2024 Patient encounter status Trang Mcclain APRN.DEVELOPMENT TECHNICIAN Work Phone: [facility] Start: 01-11-2024 End: 01-11-2024 ambulatory Olman Son Facility:[facility] Start: 01-10-2024 End: 01-10-2024 Telephone encounter Trang Mcclain APRN.DEVELOPMENT TECHNICIAN Work Phone: OB/Gynecology Comment on above: Orders Start: 01-10-2024 End: 01-10-2024 ambulatory OLMAN SON Facility:[facility] Start: 01-10-2024 End: 01-10-2024 Nursing evaluation of patient and report Nurse Battery Container Tester [facility] Work Phone: OB/Gynecology Comment on above: Encounter for manage ment and injection of depo-Provera (Primary Dx) Start: 01-04-2024 End: 01-04-2024 ambulatory Trang Mcclain APRN.DEVELOPMENT TECHNICIAN Work Phone: OB/Gynecology Comment on above: Isidra zaldivar Start: 12-28-2023 End: 12-28-[address] OLAMN SON DO Facility:[facility] Start: 12-28-2023 End: 12-28-[address] OLMAN SON DO [facility] Start: 11-30-2023 End: 11-30-2023 ambulatory Peterson Patterson Facility:[facility] Start: 11-30-2023 End: 11-30-2023 ambulatory Olman Son Facility:[facility] Start: 11-04-2023 End: 11-04-[address] OLMAN SON DO Facility:[facility] Start: 11-04-2023 End: 11-04-[address] OLMAN SON DO [facility] Start: 11-04-2023 End: 11-04-2023 ambulatory Olman Son Facility:[facility] Start: 10-31-2023 End: 10-31-2023 ambulatory Olman Son Facility:[facility] Start: 10-20-2023 End: 10-20-2023 ambulatory Olman Son Facility:[facility] Start: 10-18-2023 End: 10-18-2023 ambulatory [facility]MAN [facility] Facility:[facility] Start: 10-18-2023 End: 10-18-2023 Nursing evaluation of patient and report Nurse Battery Container Tester [facility] Work Phone: OB/Gynecology Comment on above: Encounter for manage ment and injection of depo-Provera (Primary Dx) Start: 09-28-2023 End: 09-28-2023 [facility] Start: 09-09-2023 End: 09-09-2023 ambulatory GEOFFREY FISH Facility:[facility] Start: 09-09-2023 End: 09-09-2023 Patient encounter procedure GEOFFREY HUTTON ETIQUETTE COACH-[facility] Start: 09-01-2023 End: 09-01-2023 ambulatory Olman Son Facility:[facility] Start: 08-23-2023 End: 08-23-2023 Office outpatient visit 25 minutes Mike Quiros MD Work Phone: Obstetrics and Gynecology [facility] Comment on above: Mixed stress and urg e urinary incontinence (Primary Dx); Enuresis Start: 07-21-2023 ambulatory Geoffrey Hutton MANAGER MECHANICAL MAINTENANCE Facilit y:[facility] Start: 07-21-2023 Non-patient / Non-visit Dr. Patricia Son Work Phone: [facility] Start: 07-21-2023 End: 07-21-[address] Olman Son Work Phone: [facility] Work Phone: Start: 07-21-2023 End: 07-21-[address] Olman Son Work Phone: [facility] Work Phone: Start: 07-21-2023 End: 07-21-2023 ambulatory Geoffrey Hutton MANAGER MECHANICAL MAINTENANCE Facility:[facility] Start: 07-19-2023 End: 07-19-2023 Nursing evaluation of patient and report Nurse Battery Container Tester [facility] Work Phone: OB/Gynecology Comment on above: Need for prophylacti c vaccination/inoculation against viral disease (Primary Dx); Encounter for management and injection of depo-Provera Start: 07-13-2023 ambulatory [facility] Facility:[facility] Start: 07-13-2023 Non-patient / Non-visit Dr. Patricia Son Work Phone: [facility] Start: 07-11-2023 End: 07-11-[address] Olman Son Work Phone: [facility] Work Phone: Start: 07-11-2023 End: 07-11-[address] Olman Son Work Phone: [facility] Work Phone: Start: 07-11-2023 End: 07-11-2023 ambulatory [facility] Facility:[facility] Start: 07-07-2023 End: 07-07-[address] Olman Son Work Phone: [facility] Work Phone: Start: 07-07-2023 End: 07-07-[address] Olman Son Work Phone: [facility] Work Phone: Start: 07-07-2023 End: 07-07-2023 ambulatory [facility] Facility:[facility] Start: 06-27-2023 End: 06-27-[address] Olman Son Work Phone: [facility]Pulmonary Medicine [facility] Work Phone: Start: 06-27-2023 End: 06-27-2023 ambulatory Darrion Root Facility:[facility] Start: 06-20-2023 Non-patient / Non-visit Dr. Patricia Son [facility] [place] Work Phone: Start: 06-20-2023 ambulatory Jossy Elkins y:[facility] Start: 06-20-2023 End: 06-20-[address] OLMAN SON DO Facility:[facility] Start: 06-20-2023 End: 06-20-[address] OLMAN SON DO [facility] Start: 06-05-2023 End: 06-05-[address] Olman Son Work Phone: [facility] Neurology Work Phone: Start: 05-04-2023 End: 05-04-[address] Olman Son Work Phone: [facility] Neurology Work Phone: Start: 04-25-2023 ambulatory Trang Mcclain APRN.CNP Work Phone: OB/Gynecology Comment on above: Isidra zaldivar Start: 03-15-2023 End: 03-16-2023 Emergency department patient visit LUIS F KUMAR MD [facility] Start: 03-15-2023 End: 03-15-[address] OLMAN SON DO Facility:[facility] Start: 03-15-2023 End: 03-15-[address] OLMAN SON DO [facility] Start: 02-22-2023 End: 02-22-2023 Office outpatient visit 15 minutes Mike Quiros MD Work Phone: Obstetrics and Gynecology [facility] Comment on above: Well woman exam with routine gynecological exam (Primary Dx); Enuresis; Overactive bladder Start: 02-22-2023 End: 02-22-2023 Patient encounter procedure Mike Quiros MD Work Phone: [facility] Start: 02-21-2023 End: 02-21-[address] OLMAN SON DO Facility:[facility] Start: 02-10-2023 End: 02-10-[address] OLMAN SON DO Facility:[facility] Start: 01-23-2023 End: 01-23-[address] Olman Son Work Phone: [facility] Work Phone: Start: 01-23-2023 End: 01-23-[address] Olman Son Work Phone: [facility] Work Phone: Start: 12-29-2022 End: 12-29-[address] Olman Son Work Phone: [facility] Neurology Work Phone: Start: 12-29-2022 Non-patient / Non-visit Dr. Patricia Son Work Phone: [facility] Start: 12-29-2022 End: 12-29-2022 Admission to same day surgery center Dr. Olman Son Work Phone: [facility]End[facility] Work Phone: Start: 12-29-2022 End: 12-29-[address] Olman Son Work Phone: [facility] Work Phone: Start: 12-27-2022 End: 12-27-2022 Patient encounter procedure Trang Mcclain APRN.DEVELOPMENT TECHNICIAN Work Phone: OB/Gynecology Comment on above: Encounter for gyneco logical examination (general) (routine) without abnormal findings (Primary Dx); Surveillance for Depo-Provera contraception; Screening for cervical cancer; Encounter for screening for human papillomavirus (HPV); Need for prophylactic vaccination/inoculation against viral disease Start: 12-27-2022 End: 12-27-2022 Patient encounter status Trang Mcclain APRN.DEVELOPMENT TECHNICIAN Work Phone: [facility] Start: 12-01-2022 End: 12-01-2022 Emergency department patient visit DR RITU QUINTEROS MD [facility] Start: 11-24-2022 End: 11-24-2022 Nursing evaluation of patient and report Nurse Battery Container Tester [facility] Work Phone: OB/Gynecology Comment on above: Encounter for manage ment and injection of depo-Provera (Primary Dx) Start: 11-24-2022 End: 11-24-[address] Olman Son Work Phone: [facility] Neu[facility] Work Phone: Start: 11-11-2022 ambulatory Trang Mcclain APRN.DEVELOPMENT TECHNICIAN Work Phone: OB/Gynecology Comment on above: Isidra zaldivar Start: 10-29-2022 End: 10-29-[address] OLMAN SON DO [facility] Start: 10-21-2022 End: 10-21-[address] OLMAN SON DO [facility] Start: 10-20-2022 End: 10-20-[address] Olman Son Work Phone: [facility] Neurology Work Phone: Start: 10-05-2022 End: 10-05-[address] Olman Son Work Phone: [facility] Work Phone: Start: 09-19-2022 End: 09-19-[address] Olman Son Work Phone: [facility] Neu[facility] Work Phone: Start: 09-15-2022 End: 09-15-2022 Nursing evaluation of patient and report Nurse Battery Container Tester [facility] Work Phone: OB/Gynecology Comment on above: Encounter for manage ment and injection of depo-Provera (Primary Dx) Start: 09-05-2022 End: 09-05-[address] Olman Son Work Phone: [facility] Endocrinology Work Phone: Start: 08-10-2022 End: 08-10-2022 Office outpatient visit 10 minutes [facility]oke [facility] Work Phone: Obstetrics and Gynecology [facility] Comment on above: Enuresis (Primary Dx ); Urinary urgency; Urinary incontinence, mixed Start: 08-03-2022 End: 08-03-[address] Olman Son Work Phone: [facility] Work Phone: Start: 08-03-2022 End: 08-03-[address] Olman Son Work Phone: [facility]-Ultrasound, [facility] Start: 08-01-2022 End: 08-01-2022 Subsequent hospital visit by physician [facility] Work Phone: Radiology Comment on above: Breakthrough bleedin g on Depo-Provera [N92.1] Start: 07-25-2022 End: 07-25-[address] Olman Son Work Phone: [facility] Work Phone: Start: 07-25-2022 End: 07-25-[address] Olman Son Work Phone: [facility]-Nuclear Medicine, [facility] Start: 07-19-2022 End: 07-19-[address] OLMAN SON DO [facility] Start: 07-14-2022 End: 07-14-[address] Olman Son Work Phone: [facility] Gastroenterology Start: 07-08-2022 End: 07-08-[address] Olman Son Work Phone: [facility]-Laboratory Start: 07-07-2022 End: 07-07-2022 Patient encounter procedure Trang Mcclain APRN.DEVELOPMENT TECHNICIAN Work Phone: OB/Gynecology Comment on above: Breakthrough bleedin g on Depo-Provera (Primary Dx); Abnormal uterine bleeding (AUB); Encounter for management and injection of depo-Provera Start: 07-02-2022 ambulatory Trang Mcclain APRN.DEVELOPMENT TECHNICIAN Work Phone: OB/Gynecology Comment on above: Isidra zaldivar Start: 06-20-2022 End: 06-20-[address] Olman Son Work Phone: [facility] Work Phone: Start: 06-20-2022 End: 06-20-[address] Olman Son Work Phone: [facility] Start: 06-14-2022 End: 06-14-[address] Olman Son Work Phone: [facility] Orthopaedic Spec[facility] Start: 06-10-2022 End: 06-10-2022 Emergency department patient visit Dr. Olman Son Work Phone: [facility]-Emergency Department Start: 06-09-2022 End: 06-09-[address] Olman Son Work Phone: [facility] Work Phone: Start: 06-09-2022 End: 06-09-[address] Olman Son Work Phone: [facility]-Pulmonary Services/Neurology Start: 05-19-2022 End: 05-19-[address] Olman Son Work Phone: [facility] Neurology Start: 05-06-2022 End: 05-06-[address] Olman Son Work Phone: [facility] Work Phone: Start: 05-06-2022 End: 05-06-[address] Olman Son Work Phone: [facility] Start: 05-06-2022 End: 05-06-[address] Olman Son Work Phone: [facility] Work Phone: Start: 05-06-2022 End: 05-06-[address] Olman Son Work Phone: [facility]-Physical Therapy Start: 04-28-[address] Olman Son Work Phone: [facility]-Physical Therapy Start: 04-27-2022 End: 04-27-2022 Patient encounter procedure Mike Quiros MD Work Phone: Obstetrics and Gynecology [facility] Comment on above: Urinary urgency (Keyonna janett Dx) Start: 04-27-2022 Telephone encounter Trang quiroz APRN.DEVELOPMENT TECHNICIAN Work Phone: OB/Gynecology Comment on above: AUB Start: 04-27-2022 End: 04-27-2022 Nursing evaluation of patient and report Nurse Battery Container Tester [facility] Work Phone: OB/Gynecology Comment on above: Encounter for manage ment and injection of depo-Provera (Primary Dx) Start: 04-25-2022 End: 04-25-[address] Olman Son Work Phone: [facility] Work Phone: Start: 04-25-2022 End: 04-25-[address] Olman Son Work Phone: [facility]-Laboratory Start: 04-22-2022 End: 04-22-[address] Olman Son Work Phone: [facility] Work Phone: Start: 04-22-2022 End: 04-22-[address] Olman Son Work Phone: [facility] Gastroenterology Start: 04-12-2022 End: 04-12-[address] Olman Son Work Phone: [facility] Work Phone: Start: 04-12-2022 End: 04-12-[address] Olman Son Work Phone: [facility] Endocrinology Start: 04-11-[address] 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 Olman Son Work Phone: [facility] Start: 01-07-2022 End: 01-07-[address] OLMAN SON DO [facility] Start: 12-31-2021 End: 12-31-2021 Patient encounter procedure TERESA HENDERSON ID REFERRING [facility] Start: 12-28-2021 End: 12-28-[address] OLMAN SON DO [facility] Start: 12-23-2021 End: 12-23-2021 Patient encounter procedure Betsey Espinoza MD Work Phone: OB/Gynecology Comment on above: Cervical high risk H PV (human papillomavirus) test positive (Primary Dx) Start: 12-15-2021 End: 12-15-2021 Emergency department patient visit MAKSIM VASQUEZ MD [facility] Start: 12-08-2021 End: 12-08-2021 Patient encounter procedure Trang Mcclain APRN.DEVELOPMENT TECHNICIAN Work Phone: OB/Gynecology Comment on above: Encounter for gyneco logical examination (general) (routine) without abnormal findings (Primary Dx); Screening for cervical cancer; Encounter for screening for human papillomavirus (HPV); Asymptomatic varicose veins of right lower extremity Start: 12-08-2021 End: 12-08-2021 Patient encounter status Trang Mcclain APRN.DEVELOPMENT TECHNICIAN Work Phone: OB/Gynecology Start: 11-24-2021 End: 11-24-2021 Patient encounter procedure Trang Mcclain APRN.DEVELOPMENT TECHNICIAN Work Phone: OB/Gynecology Comment on above: Breakthrough bleedin g on Depo-Provera (Primary Dx); Encounter for management and injection of depo-Provera Start: 09-09-2021 End: 09-09-2021 Office outpatient visit 15 minutes Dipika Dacosta ETIQUETTE COACH-DEVELOPMENT TECHNICIAN Work Phone: Neurology Outpatient Care [facility] Comment on above: 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, not intractable, 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 Dx) Start: 09-03-2021 End: 09-03-2021 Patient encounter procedure Mariel Foy ETIQUETTE COACH-DEVELOPMENT TECHNICIAN Work Phone: Obstetrics and Gynecology [facility]patient [facility] Comment on above: Encounter for Depo-P rovera contraception; Medication management; Nocturia Start: 12-26-2020 ambulatory ROBERTO ALVAREZ [facility] Start: 12-10-2020 End: 12-10-2020 Patient encounter procedure Sergei Frank MD Work Phone: Obstetrics and Gynecology [facility] Comment on above: Encounter for contra ceptive management, unspecified type (Primary Dx) Start: 09-20-2020 End: 09-21-2020 Emergency department patient visit [facility] Start: 07-24-2018 End: 07-25-2018 Emergency department patient visit [facility] Start: 07-24-2018 End: 07-25-2018 Emergency department patient visit Madison Fernandez Work Phone: [facility] Emergency Department Comment on above: Hyperemesis gravidar um (Primary Dx) Start: 07-12-2018 End: 07-13-2018 Emergency department patient visit [facility] Start: 07-12-2018 End: 07-13-2018 Emergency department patient visit Arnav Castaneda Work Phone: [facility] Emergency Department Comment on above: Nausea and vomiting, intractability of vomiting not specified, unspecified vomiting type (Primary Dx); First trimester Start: 07-04-2018 End: 07-04-2018 Emergency department patient visit [facility] Start: 07-03-2018 End: 07-04-2018 Emergency department patient visit Gabriele Roland Parrish Work Phone: [facility] Emergency Department Comment on above: Hyperemesis gravidar um (Primary Dx); Acute UTI Start: 02-19-2018 End: 02-20-2018 Patient encounter procedure CHAD MONTERO [facility] Start: 02-19-2018 End: 02-19-2018 Patient encounter Chad Montero Work Phone: [facility] Diagnostics Comment on above: Radiculopathy of cer vical region Start: 12-13-2016 Ambulatory JESUS [facility] Ambulatory MD Isadora garcia MD S Procedures Date Procedure Procedure Detail Performing Clinician Start: 03-13-2024 Urnls dip stick/tablet rgnt non-auto w/o micrscp Mike Quiros MD Work Phone: Start: 03-13-2024 Calcium total Tania Currie MD Work Phone: Start: 08-23-2023 Calcium total Margaret Parks MD Work Phone: Start: 08-23-2023 Urnls dip stick/tablet rgnt non-auto w/o micrscp Mike Quiros MD Work Phone: Start: 07-21-2023 CT angiography of coronary arteries Dr. Olman Son Work Phone: Start: 02-22-2023 Basic metabolic panel calcium total Margaret Parks MD Work Phone: Start: 02-22-2023 Urnls dip stick/tablet rgnt non-auto w/o micrscp Mike Quiros MD Work Phone: Start: 12-29-[address] Olman Son Work Phone: Start: 08-10-2022 Basic metabolic panel calcium total Brooke Dugan ETIQUETTE COACH-DEVELOPMENT TECHNICIAN Work Phone: Start: 08-10-2022 Urnls dip stick/tablet rgnt auto w/o microscopy Mike Quiros MD Work Phone: Start: 08-03-[address] Olman Son Work Phone: Start: 08-01-2022 Us transvaginal Trang Mcclain APRN.CNP Work Phone: Start: 07-25-2022 Radionuclide gastric emptying study Dr. Olman Son Work Phone: Start: 06-20-2022 MRI of brain with contrast Dr. Olman wright Work Phone: Start: 06-10-2022 Plain chest X-ray Dr. Olman Son Work Phone: Start: 05-06-2022 Computed tomography of abdomen and pelvis with contrast Dr. Olman Son Work Phone: Start: 04-27-2022 Creatinine blood Mike Quiros MD Work Phone: Start: 01-17-2022 Radiologic examination of knee Dr. Olman Son Work Phone: Start: 12-23-2021 Urine test visual color cmprsn meths Betsey Espinoza MD Work Phone: Start: 09-03-2021 Basic metabolic panel calcium total Katja Santabriana DO Work Phone: Start: 09-03-2021 Urine test visual color cmprsn meths Valentina Lazcano MD Work Phone: Start: 12-10-2020 Urine test visual color cmprsn meths Fior Chaparro MD Work Phone: Start: 07-25-2018 Urinalysis Madison Fernandez Work Phone: Start: 07-24-2018 Basic metabolic 2000 panel - Serum or Plasma Madison Fernandez Work Phone: Start: 07-24-2018 Choriogonadotropin [Units/volume] in Serum or Plasma Madison Fernandez Work Phone: Start: 07-24-2018 Hepatic function 2000 panel - Serum or Plasma Laurie Flores Work Phone: Start: 07-24-2018 Lipase [Enzymatic activity/volume] in Serum or Plasma Laurie Flores Work Phone: Start: 07-24-2018 Complete blood count with white cell differential, automated Madison Fernandez Work Phone: Start: 07-24-2018 Complete blood count with white cell differential, manual Madison Fernandez Work Phone: Start: 07-24-2018 Ultrasonography in first trimester Laurie Flores Work Phone: Start: 07-13-2018 Basic metabolic 1998 panel - Serum or Plasma Arnav aCstaneda Work Phone: Start: 07-13-2018 Complete blood count with white cell differential, automated Arnav Castaneda Work Phone: Start: 07-13-2018 Complete blood count with white cell differential, manual Arnav Castaneda Work Phone: Start: 07-13-2018 MAYO TOP Arnav Castaneda Work Phone: Start: 07-13-2018 LAVENDER TOP Arnav Castaneda Work Phone: Start: 07-13-2018 LIGHT BLUE TOP Arnav Castaneda Work Phone: Start: 07-13-2018 LIGHT GREEN TOP Arnav Castaneda Work Phone: Start: 07-13-2018 MINT GREEN TOP Arnav Castaneda Work Phone: Start: 07-13-2018 RAINBOW DRAW Arnav Castaneda Work Phone: Start: 07-04-2018 Basic metabolic 1998 panel - Serum or Plasma Laurie Flores Work Phone: Start: 07-04-2018 Choriogonadotropin [Units/volume] in Serum or Plasma Laurie Flores Work Phone: Start: 07-04-2018 Complete blood count with white cell differential, automated Laurie Flores Work Phone: Start: 07-04-2018 Complete blood count with white cell differential, manual Laurie Flores Work Phone: Start: 07-04-2018 Hepatic function 2000 panel - Serum or Plasma Laurie Flores Work Phone: Start: 07-04-2018 Lipase [Enzymatic activity/volume] in Serum or Plasma Laurie Flores Work Phone: Start: 07-04-2018 Urinalysis Laurie Flores Work Phone: Start: 02-19-2018 End: 02-19-2018 Radiologic examination of cervical spine, anteroposterior and lateral External Transcribed Clostridium difficil e detection Dr. Olman Son Work Phone: Enteric Bacteriology Dr. Ajay Son Work Phone: Giardia Antigen (GALO) Dr. Patricia Son Work Phone: Giardia Antigen (GLAO) Dr. Patricia Son Work Phone: Knee region structur e (body structure) MAKSIM VASQUEZ MD Lactoferrin measurement Dr. Olman Son Work Phone: Measurement of occul t blood in stool specimen using immunoassay Dr. Olman Son Work Phone: Ova OR parasites identification Dr. Olman Son Work Phone: [facility] OR parasites identification Dr. Olman Son Work Phone: Plan of Treatment Date Care Activity Detail Author Start: 11-07-2028 Tetanus vaccination TETANUS [facility] Start: 11-07-2028 Urine microalbumin profile [facility] Start: 12-28-2027 HPV Testing HPV Testing [facility] Start: 12-28-2027 Pap Testing Pap Testing [facility] Start: 12-28-2027 Screening for malignant neoplasm of cervix [facility] Start: 12-08-2026 HPV TESTING HPV TESTING [facility] Start: 12-08-2026 PAP TESTING PAP TESTING [facility] Start: 04-09-2025 End: 04-09-2025 Patient encounter procedure 04/09/2025 1:30 PM EST Office Visit Obstetrics and Gynecology [facility] [address] [place] [address] Mike Quiros MD [address] [place] [address] Obstetrics and Gynecology [facility] Start: 02-12-2025 End: 02-12-2025 Patient encounter procedure 02/12/2025 9:30 AM EDT Office Visit OB/Gynecology [address] [place], [place] [id number] Trang Mcclain APRN.DEVELOPMENT TECHNICIAN [address] [place], [place] [id number] ANNUAL OB/Gynecology Comment on above: ANNUAL Start: 02-08-2025 Screening for malignant neoplasm of cervix Cervical Cancer Screening [facility] Start: 01-06-2025 Influenza vaccination INFLUENZA VACCINE (Season Ended) [facility] Start: 11-19-2024 End: 11-19-2024 Patient encounter procedure 11/19/2024 3:00 PM EDT Office Visit [facility] [address] [place] [address] Agustina Jose MD, PhD [address] [place] [address] [facility] Gastrointestinal [facility] Start: 11-04-2024 End: 11-04-2024 Telemedicine consultation with patient 11/04/2024 4:00 PM EDT Telemedicine [facility]rology [facility] [address] [place], [place] [id number] Clair Potter, DO [address] [place] [address] [facility] Start: 11-01-2024 End: 11-01-2024 Patient encounter procedure 11/01/2024 12:40 PM EDT Office Visit [facility] [address] [facility] [address] [place] [address] Dipika Dacosta, ETIQUETTE COACH-DEVELOPMENT TECHNICIAN [address] [place] [id number] Neurology [facility] Start: 10-30-2024 End: 10-30-2024 Nursing evaluation of patient and report 10/30/2024 3:00 PM EDT Nurse Visit OB/Gynecology [address] [place] [address] Wstr, Nurse Battery Container Tester [facility] [address] [place], [place] [id number] Depo - 10 weeks OB/Gynecology Comment on above: Depo - 10 weeks Start: 10-14-2024 End: 10-14-2024 Patient encounter procedure 10/14/2024 11:00 AM EDT Office Visit [facility] [address] [place] [address] Pricila Mcdaniel, DPMonica [address] [place] [address] [facility] Start: 08-21-2024 End: 08-21-2024 Nursing evaluation of patient and report 08/21/2024 3:00 PM EDT Nurse Visit OB/Gynecology [address] [place] [address] Wstr, Nurse Battery Container Tester [facility] [address] [facility] [place] [address] Depo - 10 weeks OB/Gynecology Comment on above: Depo - 10 weeks Start: 08-01-2024 End: 08-01-2024 Patient encounter procedure 08/01/2024 2:00 PM EDT Office Visit [facility] [address] [place] [address] Fabiola Coats APRN-DEVELOPMENT TECHNICIAN [address] [place] [address] [facility] Start: 07-24-2024 End: 07-24-2024 Patient encounter procedure 07/24/2024 10:40 AM EDT Office Visit [facility] [address] [place] [address] Alan Lorenz, JIMMY [address] [place] [address] [facility] Start: 06-12-2024 End: 06-12-2024 Nursing evaluation of patient and report 06/12/2024 3:00 PM EST Nurse Visit OB/Gynecology [address] [place] [address] Wstr, Nurse Battery Container Tester [facility] [address] [place] [address] Depo - 10 weeks OB/Gynecology Comment on above: Depo - 10 weeks Start: 04-17-2024 HPV TESTING HPV TESTING [facility] Start: 04-17-2024 PAP TESTING PAP TESTING [facility] Start: 04-03-2024 End: 04-03-2024 Nursing evaluation of patient and report 04/03/2024 2:00 PM EST Nurse Visit OB/Gynecology [address] [facility] [place] [address] Wstr, Nurse Battery Container Tester [facility] [address] [place] [address] Depo OB/Gynecology Comment on above: Depo Start: 02-09-2024 End: 02-09-2024 Patient encounter procedure 02/09/2024 10:00 AM EDT Office Visit OB/Gynecology [address] [place] [address] Trang Mcclain APRN.DEVELOPMENT TECHNICIAN [address] [place] [address] annual OB/Gynecology Comment on above: annual Start: 01-10-2024 End: 01-10-2024 Nursing evaluation of patient and report 01/10/2024 11:00 AM EDT Nurse Visit OB/Gynecology [address] [place] [address] Wstr, Nurse Battery Container Tester [facility] [address] [place] [address] [facility] Comment on above: Formerly [facility] Start: 01-07-2024 Covid-19 Vaccine ( season) Covid-19 Vaccine ( season) [facility] Start: 01-07-2024 Covid-19 Vaccine ( season) Covid-19 Vaccine ( season) [facility] Start: 01-07-2024 Influenza vaccination Influenza Vaccine (#1) [facility] Start: 01-02-2024 End: 01-02-2024 Patient encounter procedure 01/02/2024 3:30 PM EDT Office Visit OB/Gynecology [address] [place] [address] Trang Mcclain, ETIQUETTE COACH.DEVELOPMENT TECHNICIAN [address] [place] [address] ANNUAL OB/Gynecology Comment on above: ANNUAL Start: 12-28-2023 Screening for malignant neoplasm of cervix Cervical Cancer Screening [facility] Start: 08-23-2023 End: 08-23-2023 Patient encounter procedure 08/23/2023 3:30 PM EDT Office Visit Obstetrics and Gynecology [facility] [address] [place] [id number] Mike Quiros MD [address] [place] [address] Obstetrics and Gynecology [facility] Start: 06-30-2023 HPV Vaccine (3 - 3-dose SCDM series) HPV Vaccine (3 - 3-dose SCDM series) [facility] Start: 06-29-2023 HPV Vaccine (3 - 3-dose SCDM series) HPV Vaccine (3 - 3-dose SCDM series) [facility] Start: 06-25-2023 9vhpv vacc 2/3 dose sched im use HPV VACCINE, 9-VALENT (GARDASIL 9) Immunization/Injection Routine Need for prophylactic vaccination/inoculation against viral disease Expected: 06/25/2023 (Approximate) [facility] Work Phone: Comment on above: Expected: 06/25/2023 (Approximate) Start: 05-08-2023 Behavioral Health Screening Behavioral Health Screening [facility] Start: 05-08-2023 Depression Assessment Depression Assessment [facility] Start: 02-25-2023 9vhpv vacc 2/3 dose sched im use HPV VACCINE, 9-VALENT (GARDASIL 9) Immunization/Injection Routine Need for prophylactic vaccination/inoculation against viral disease Expected: 02/25/2023 (Approximate) [facility] Work Phone: Comment on above: Expected: 02/25/2023 (Approximate) Start: 01-24-2023 HPV VACCINE (2 - 3-dose SCDM series) HPV VACCINE (2 - 3-dose SCDM series) [facility] Start: 01-06-2023 Covid-19 Vaccine ( season) Covid-19 Vaccine ( season) [facility] Start: 01-06-2023 Influenza vaccination [facility] Start: 12-29-2022 Colonoscopy flx dx w/collj spec when pfrmd DIAGNOSTIC COLONOSCOPY [facility] Start: 12-29-2022 Egd transoral biopsy single/multiple EGD BIOPSY SINGLE/MULTIPLE [facility] Start: 12-29-2022 Patient discharge [facility] Start: 12-21-2022 End: 12-21-2022 Patient encounter procedure 12/21/2022 Office Visit WATCH REPAIRER Obstetrics and Gynecology [facility] Start: 06-20-2022 Lamotrigine measurement [facility] Start: 06-20-2022 Thiamine measurement [facility] Start: 06-20-2022 Vitamin D, 1,25-dihydroxy measurement [facility] Start: 05-18-2022 End: 05-18-2022 Telemedicine consultation with patient 05/18/2022 Telemedicine WATCH REPAIRER Brooke Dugan, ETIQUETTE COACH-DEVELOPMENT TECHNICIAN [address] [place] [address] Obstetrics and Gynecology [facility] Start: 05-08-2022 DEPRESSION ASSESSMENT DEPRESSION ASSESSMENT [facility] Start: 04-25-2022 [facility] Work Phone: Start: 01-17-2022 Patient referral [facility] Work Phone: Start: 01-06-2022 Influenza vaccination [facility] Start: 11-26-2021 End: 11-26-2021 Clinical Support Encounter 11/26/2021 Clinical Support Encounter WATCH REPAIRER Obstetrics and Gynecology [facility] Start: 11-26-2021 Screening for malignant neoplasm of cervix CERVICAL CANCER SCREENING DISCUSSION [facility] Start: 10-15-2021 End: 10-15-2021 Clinical Support Encounter 10/15/2021 Clinical Support Encounter WATCH REPAIRER Obstetrics and Gynecology [facility] Start: 10-13-2021 End: 10-13-2021 Telemedicine consultation with patient 10/13/2021 Telemedicine WATCH REPAIRER Obstetrics and Gynecology [facility] Start: 09-09-2021 End: 09-09-2021 Patient encounter procedure 09/09/2021 Office Visit Neurology Dipika Dacosta, ETIQUETTE COACH-DEVELOPMENT TECHNICIAN [address] [place] [phone] Neurology Outpatient Care [facility] Start: 09-09-2021 End: 09-09-2022 LAMOTRIGINE LEVEL LAMOTRIGINE LEVEL Lab Routine Generalized idiopathic epilepsy and epileptic syndromes, not intractable, without status epilepticus Expected: 09/09/2021, Expires: 09/09/2022 [facility] Comment on above: Expected: 09/09/2021, Expires: 3 Start: 05-08-2021 DEPRESSION ASSESSMENT DEPRESSION ASSESSMENT [facility] Start: 03-24-2021 End: 03-24-2021 Patient encounter procedure 03/24/2021 Office Visit Neurology Dipika Dacosta, ETIQUETTE COACH-DEVELOPMENT TECHNICIAN [address] [place] [address] [facility] Start: 03-05-2021 End: 03-05-2021 Clinical Support Encounter 03/05/2021 Clinical Support Encounter WATCH REPAIRER Obstetrics and Gynecology [facility] Start: 01-06-2021 Influenza vaccination INFLUENZA VACCINE (#1) [facility] Start: 09-11-2019 Thyroid stimulating hormone measurement TSH [facility] Start: 01-06-2018 Influenza vaccination SEQUENTIAL INFLUENZA VACCINE (#1) [facility] Start: 01-06-2018 Influenza vaccination given SEQUENTIAL INFLUENZA VACCINE (#1) [facility] Start: 2005 Hepatitis B vaccination HEP B VACCINE (1 of 3 - 19+ 3-dose series) [facility] Start: 2005 Hepatitis B Vaccine (1 of 3 - 19+ 3-dose series) Hepatitis B Vaccine (1 of 3 - 19+ 3-dose series) [facility] Start: 2005 Pneumococcal vaccination Pneumococcal Vaccine (1 of 2 - PCV) [facility] Start: 2005 PNEUMOCOCCAL VACCINE SERIES (1 of 2 - PCV) PNEUMOCOCCAL VACCINE SERIES (1 of 2 - PCV) [facility] Start: 2005 Urine microalbumin profile DTAP,TDAP,TD (1 - Tdap) [facility] Start: 2004 Anxiety Screening Anxiety Screening [facility] Start: 2004 Depression Screening Depression Screening [facility] Start: 2004 HEPATITIS C SCREENING HEPATITIS C SCREENING [facility] Start: 2004 Hepatitis C screening Hepatitis C Screening [facility] Start: 2004 HIV SCREENING HIV SCREENING [facility] Start: 2004 HIV screening HIV Screening [facility] Start: 1998 Adult depression screening assessment DEPRESSION SCREENING [facility] Start: 1998 COVID-19 VACCINE (1) COVID-19 VACCINE (1) [facility] Start: 1992 PNEUMOCOCCAL (1 - PCV) PNEUMOCOCCAL (1 - PCV) [facility] Start: 1992 Pneumococcal vaccination [facility] Start: 1992 PNEUMOCOCCAL VACCINE SERIES (1 - PCV) PNEUMOCOCCAL VACCINE SERIES (1 - PCV) [facility] Start: 1992 PNEUMOCOCCAL VACCINE SERIES (1 of 2 - PCV) PNEUMOCOCCAL VACCINE SERIES (1 of 2 - PCV) [facility] Start: 12-07-1991 COVID-19 VACCINE (#1) COVID-19 VACCINE (#1) [facility] Start: 06-08-1987 COVID-19 VACCINE (#1) COVID-19 VACCINE (#1) [facility] Start: 1986 HEPATITIS B (1 of 3 - 3-dose series) HEPATITIS B (1 of 3 - 3-dose series) [facility] Start: 1986 Hepatitis B Vaccine (1 of 3 - 3-dose series) Hepatitis B Vaccine (1 of 3 - 3-dose series) [facility] Start: 1986 Screening for malignant neoplasm of cervix [facility] Start: 1986 Tetanus vaccination TETANUS EVERY 10 YR [facility] End: 07-24-2018 Bacteria identified Aer cx Nom (Unsp spec) Urine Aerobic Culture Routine Once for 1 Occurrences starting 07/24/2018 until 07/24/2018 [facility] Comment on above: Once for 1 Occurrences starting 07/25/19 19 until 07/24/2018 Bacteria identified Aer cx Nom (Unsp spec) Urine Aerobic Culture Routine 07/24/2018 10:59 PM EDT [facility] Blood ammonia measurement [facility] Blood ammonia measurement [facility] Colonoscopy [facility] Complete blood count with white cell differential, automated CBC, EDIF, PLATELET Lab Routine Unintentional weight loss Ordered: 07/04/2024 [facility] [employer] Phone: Comment on above: Ordered: 07/04/2024 Comprehensive metabolic 2000 panel - Serum or Plasma COMPREHENSIVE METABOLIC PANEL Lab Routine Unintentional weight loss Ordered: 07/04/2024 [facility] [employer] Phone: Comment on above: Ordered: 07/04/2024 CT Abdomen and Pelvi s W contrast IV [facility] Work Phone: Drugs identified in Urine by Screen method [facility] Folate [Mass/volume] in Serum or Plasma [facility] HIV 1+2 Ab+HIV1 p24 Ag [Presence] in Serum or Plasma by Immunoassay HIV 1 AND 2 ANTIBODIES Lab Routine Unintentional weight loss Ordered: 07/05/2024 [facility] Work Phone: Comment on above: Ordered: 07/05/2024 Lamotrigine measurement [facility] Lamotrigine measurement [facility] Simba post-voiding residual urine&/bladder cap ID SIMBA,POST-VOID RES,US,NON-IMAGING ID Charge Routine Well woman exam with routine gynecological exam Ordered: 02/22/2023 [facility] Comment on above: Ordered: 02/22/2023 MR Brain WO and W contrast IV [facility] Ova and parasites identified in Unspecified specimen by Light microscopy [facility] Work Phone: PAP FLUID CERVICAL SCREENING PAP FLUID CERVICAL SCREENING Lab Routine Screening for cervical cancer Encounter for screening for human papillomavirus (HPV) Ordered: 12/08/2021 [facility] Work Phone: Comment on above: Ordered: 12/08/2021 PAP TEST PAP TEST Lab Rou jonatan Encounter for gynecological examination (general) (routine) without abnormal findings Screening for cervical cancer Encounter for screening for human papillomavirus (HPV) Ordered: 12/27/2022 [facility] Work Phone: Comment on above: Ordered: 12/27/2022 PAP TEST PAP TEST Lab Rou jonatan Encounter for gynecological examination (general) (routine) without abnormal findings Screening for cervical cancer Encounter for screening for human papillomavirus (HPV) 02/09/2024 10:34 AM EDT [facility] Work Phone: Patient Education ED Chest Pain, Uncertain Cause ED Paraesthesias [facility] Work Phone: Patient referral [facility] Work Phone: SURGICAL PATHOLOGY SURGICAL PATH OLOGY Lab Routine Cervical high risk HPV (human papillomavirus) test positive 12/23/2021 3:14 PM EDT [facility] Work Phone: Therapeutic prophylactic/dx injection subq/im THER/PROPH/DIAG INJ, SC/IM Procedures Routine Need for prophylactic vaccination/inoculation against viral disease Ordered: 12/27/2022 [facility] Work Phone: Comment on above: Ordered: 12/27/2022 Thiamine measurement [facility] TSH W/FT4 REFLEX TSH W/FT4 REFLE X Lab Routine Unintentional weight loss Ordered: 07/04/2024 [facility] Work Phone: Comment on above: Ordered: 07/04/2024 Urine test [facility] End: 08-06-2023 Us transvaginal US FEMALE PELVIS TRANSVAG Radiology Routine Breakthrough bleeding on Depo-Provera Abnormal uterine bleeding (AUB) 1 Occurrences starting 07/07/2022 until 08/06/2023 [facility] Work Phone: Comment on above: 1 Occurrences starting 07/07/2022 until 08/06/2023 [employer] [facility] Vitamin B12 measurement [facility] Vitamin D, 1,25-dihydroxy measurement [facility] Immunizations Immunization Date Immunization Notes Care Provider Jose Ramon castelan 07-19-2023 Human Papillomavirus 9-valent vaccine Nurse Wstr Work Phone: [facility] 02-27-2023 Human Papillomavirus 9-valent vaccine Trang Mcclain APRN.DEVELOPMENT TECHNICIAN Work Phone: [facility] 02-27-2023 Human Papillomavirus Quadval GEOFFREY FELICITA ETIQUETTE COACH-DEVELOPMENT TECHNICIAN [facility] 02-24-2023 influenza, injectabl e, quadrivalent, contains preservative; Translations: [Fluarix PF Quadrivalent ] DR OLMAN SON DO [facility] 02-24-2023 influenza virus vacc ine, unspecified formulation Trang Mcclain ETIQUETTE COACH.DEVELOPMENT TECHNICIAN Work Phone: [facility] 12-27-2022 Human Papillomavirus 9-valent vaccine Trang Mcclain APRN.DEVELOPMENT TECHNICIAN Work Phone: [facility] 12-27-2022 Human Papillomavirus Quadval GEOFFREY HUTTON ETIQUETTE COACH-DEVELOPMENT TECHNICIAN [facility] 03-03-2022 influenza, injectabl e, quadrivalent, contains preservative DR OLMAN SON DO [facility] 03-03-2022 influenza virus vacc ine, unspecified formulation Mike Quiros MD Work Phone: [facility] 01-27-2020 influenza, injectabl e, quadrivalent, preservative free; Translations: [Fluarix PF Quadrivalent ] MAKSIM VASQUEZ MD [facility] 01-27-2020 influenza virus vacc ine, unspecified formulation [facility] Apprentice Funeral Director [facility] 02-01-2019 influenza, injectabl e, quadrivalent, preservative free [employer] Work Phone: [facility] 02-01-2019 influenza virus vacc ine, unspecified formulation [employer] Work Phone: [facility] 11-07-2018 tetanus toxoid, redu garrett diphtheria toxoid, and acellular pertussis vaccine, adsorbed [employer] Work Phone: [facility] Payers Date Payer Category Payer Self-pay 2021 Private Health Insurance [id number] 2020 Medicaid [id number] 2020 Medicaid (Managed Care) 1.2. [id number] 2020 Unknown [id number] 2018 Medicaid [id number] 2015 Medicaid [id number] 1986 Unknown [id number] 2.16.8 40.1.325650.3.579.2.902 1986 Unknown [id number] 2.16.8 40.1.210312.3.579.2.902 1986 Unknown [id number] 2.16. 840.1.792201.3.579.2.900 1986 Unknown [id number] 2.16.8 40.1.927148.3.579.2.627 1986 Unknown [id number] 2.16.8 40.1.689553.3.579.2.627 1986 Unknown [id number] 2.16.8 40.1.304288.3.579.2.627 1986 Unknown [id number] 2.16.8 40.1.921782.3.579.2.627 1986 Unknown [id number] 2.16.8 40.1.858777.3.579.2.627 1986 Unknown [id number] 2.16.8 40.1.216940.3.579.2.627 1986 Unknown [id number] 2.16.8 40.1.102615.3.579.2.627 1986 Unknown [id number] 2.16.8 40.1.679523.3.579.2.627 1986 Unknown [id number] 2.16.8 40.1.968657.3.579.2.1248 1986 Unknown [id number] 2.16.8 40.1.055150.3.579.2.627 1986 Unknown [id number] 2.16.8 40.1.283197.3.579.2.627 1986 Unknown [id number] 2.16.8 40.1.991868.3.579.2.627 1986 Unknown [id number] 2.16.8 40.1.493452.3.579.2.627 1986 Unknown [id number] 2.16.8 40.1.999918.3.579.2.627 1986 Unknown [id number] 2.16. 840.1.082688.3.579.2.594 1986 Unknown [id number] 2.16. 840.1.158908.3.579.2.594 1986 Unknown [id number] 2.16. 840.1.063829.3.579.2.594 Unknown [id number] 2.16.8 40.1.610113.3.579.2.462 Unknown [id number] 2.16.8 40.1.837514.3.579.2.462 Unknown [id number] 2.16.8 40.1.731846.3.579.2.462 Unknown [id number] 2.16.8 40.1.987943.3.579.2.462 Unknown [id number] 2.16.8 40.1.000610.3.579.2.462 Unknown [id number] 2.16.8 40.1.984578.3.579.2.462 Unknown [id number] 2.16.8 40.1.754312.3.579.2.462 Unknown [id number] 2.16.8 40.1.901130.3.579.2.462 Unknown [id number] 2.16.8 40.1.836957.3.579.2.462 Unknown [id number] 2.16.8 40.1.862027.3.579.2.462 Unknown [id number] 2.16.8 40.1.214129.3.579.2.462 Unknown [id number] 2.16.8 40.1.726370.3.579.2.462 Unknown [id number] 2.16.8 40.1.838262.3.579.2.462 Unknown [id number] 2.16.8 40.1.303893.3.579.2.462 Unknown [id number] 2.16.8 40.1.553541.3.579.2.462 Unknown [id number] 2.16.8 40.1.755366.3.579.2.462 Unknown [id number] 2.16.8 40.1.014669.3.579.2.462 Unknown [id number] 2.16.8 40.1.926934.3.579.2.462 Unknown [id number] 2.16.8 40.1.333931.3.579.2.462 Unknown [id number] 2.16.8 40.1.933545.3.579.2.462 Social History Date Type Detail Facility Start: 03-18-2016 End: 03-13-2024 Tobacco smoking status [facility] Current every day smoker [facility] History of tobacco use Cigarette Smoker [facility] Start: 03-18-2016 End: 07-04-2024 Cigarettes smoked current (pack per day) - Reported [facility] Work Phone: Start: 1985 Sex Assigned At Not on file O [facility] Start: 05-03-2018 [facility] Start: 09-12-2018 End: 03-13-2024 Tobacco use and exposure Never used [facility] Start: 11-26-2020 End: 10-09-2024 Alcohol intake Lifetime non-drinker (finding) [facility] Start: 04-17-2019 End: 06-12-2019 History SDOH Alcohol Frequency 1 [facility] Start: 01-28-2019 End: 10-06-2022 Tobacco Comment pt given quitting tobacco use handout. [facility] Start: 11-14-2021 End: 04-27-2022 Exposure to SARS-CoV-2 (event) Not sure [facility] Start: 08-28-2021 Former Smoker [facility] Start: 04-17-2019 End: 07-04-2024 [facility] [place] Start: 04-17-2019 History SDOH Financial 5 [facility] Start: 04-17-2019 History SDOH Transport Med 2 [facility] Start: 1985 Sex Assigned At Female [facility] Start: 08-30-2019 End: 03-15-2023 Tobacco smoking status Heavy tobacco smoker (finding) [facility] Start: 04-12-2022 End: 06-27-2023 Tobacco smoking status ILIS Unknown if ever smoked [facility] How often to you hav e a drink containing alcohol? Never [facility] Work Phone: Average Number of Drinks Not on file [facility] Work Phone: (I/We) worried whether (my/our) food would run out before (I/we) got money to buy more. Never true [facility] Work Phone: Start: 12-08-2021 Gender identity Identifies as female gender (finding) [facility] Start: 12-08-2021 Sexual orientation Heterosexual ([place]) [facility] History of tobacco use Passive smoker [facility] (I/We) worried whether (my/our) food would run out before (I/we) got money to buy more. DK or Refused [facility] Start: 02-22-2023 Alcohol Comment recovering add ict- clean 7 yrs(2015) [facility] Sexual Orientation Sebastian H alextal [facility] Start: 07-13-2018 End: 04-21-2019 Sex Female (finding) [facility] Start: 05-28-2025 Sexual orientation Choose not to dis close [facility] NEGATED: Highlighted row [facility] Goals Date Patient Goal Desired Activity /State Functional Status Date Assessment Result Facility 07-04-2024 Total score [AUDIT-C] 0 07/04/19 4:10 PM Kiersten Gonzalez [facility] Work Phone: 09-09-2023 Functional Status Independent [facility] 09-09-2023 Functional Status Standard Safet y ID band on, Allergy Band on [facility] 09-05-2023 Functional Status Sensory Deficits None A [facility] 03-15-2023 Functional Status Standard Safet y ID band on, Call device within reach, Bed in low position, Wheels locked, Bedside Cart Locked, Safety level maintained [facility] 12-29-2022 Functional status [facility] Work Phone: 12-01-2022 Functional Status ID band on, Allergy Band on, Call device within reach, Bed in low position, Wheels locked, Safety level maintained [facility] 12-15-2021 Functional Status Standard Safet y ID band on, Allergy Band on, Call device within reach, Bed in low position, Wheels locked, Upper/Half-Length side-rails up, Phone within reach, personal items within reach, Bedside Cart Locked, Visitor at bedside [facility] 01-30-2019 Are you deaf, or do you have serious difficulty hearing No 01/30/2019 6:18 AM Christiano Sandoval RN No [employer] [facility] [employer] 01-30-2019 Are you blind, or do you have serious difficulty seeing, even when wearing glasses No 01/30/2019 6:18 AM Christiano Sandoval RN No [employer] Work Phone: 01-30-2019 Do you have serious difficulty walking or climbing stairs No 01/30/2019 6:18 AM Christiano Sandoval RN No [facility] [employer] Work Phone: 01-30-2019 Do you have difficul ty dressing or bathing No 01/30/2019 6:18 AM EDT Christiano Dockery RN No [facility] Work Phone: 01-30-2019 Because of a physica l, mental, or emotional condition, do you have difficulty doing errands alone such as visiting a physician's office or shopping No 01/30/2019 6:18 AM EDT Christiano Dockery RN No [facility] Work Phone: [facility] Work Phone: Mental Status Date Assessment Result Facility 09-09-2023 Mental Status Orientation Oriented x 4 [facility] 09-09-2023 Mental Status [facility] 07-21-2023 Cognitive function Awake;Alert;Appropriat e [facility] Work Phone: 03-15-2023 Mental Status Orientation Oriented x 4 [facility] 12-29-2022 Cognitive function Voice/Name [facility] Work Phone: 12-01-2022 Mental Status Oriented x 4 [facility] 12-15-2021 Mental Status Orientation Oriented x 4 [facility] 01-30-2019 Because of a physica l, mental, or emotional condition, do you have serious difficulty concentrating, remembering, or making decisions No 01/30/2019 6:18 AM EDT Christiano Dockery RN No [facility] Work Phone: Clinical Notes 12-10-2020 to 10-09-2024 Tonya Cervantes RN - 10/09/2024 1:30 PM George Parks MD - 10/09/2024 1:30 PM EDTPChente Alston RN - 08/21/2024 2:45 PM MARTIN Olvera - 07/04/2024 3:45 PM EST Note Date & Type Note Facility 10-09-2024 History of Present illness Narrative Isidra Zaldivar is a 38 y.o. here for a Urogynecology appointment. No LMP recorded (lmp unknown). Patient has had an injection. Reason for visit: pt denies any s/sx of urinary issues today. Reports medication working well for her and would like refill. Urogynecology Follow-Up HPI Isidra Zaldivar is a 38 y.o. female, presents for follow up of Urinary incontinence and nocturia/enuresis. Interval history: Continues to take DDAVP at night for nocturia/enuresis in addition to oxybutynin SR 5 mg daily. Continues to do PFPT exercises. Denies incontinence or enuresis. Denies headache or issues with DDAVP. Has had increased AMADOR since her last appointment. Using pads ~2 per day at this time. Would like Rx. Urinary Incontinence: Yes Voiding Dysfunction: No Urinary Frequency: Yes Urinary Urgency: Yes Prolapse Symptoms: No Defecatory Dysfunction: No Fecal Incontinence: No Abnormal Bleeding: amenorrheic on Depo Pain: No Abnormal Vaginal Discharge: No Gynecological History: Paps: normal, last performed within the last 1-2 yrs. Mammograms: n/a Menstrual: amenorrheic on Depo. No LMP recorded (lmp unknown). Patient has had an injection. Menopausal: No If yes, PMB: Physical Exam BP 124/61 Pulse 82 Wt 175 lb (79.4 kg) BMI 27.41 kg/m Smoking Status Every Day Body mass index is 27.41 kg/m . Gen: well appearing, NAD, pleasant Chest: RRR, CTAB, non labored breathing : exam deferred Assessment: This is a 38 y.o. female with JOSE (urge predominant), constipation and enuresis currently managed with DDAVP and oxybutynin. Plan: JOSE, urge predominant: - currently taking oxybutynin CR 5 mg daily. Refill provided. - Recurrent AMADOR noted, will refer back to PFPT. Incontinence supplies Rx'ed. Will discuss further at follow up if patient would like to pursue surgery vs pessary (she has completed childbearing) Enuresis: None, doing well - Currently taking 0.2 mg DDAVP nighty, will continue current dose - Prior BMPs wnl, repeat annually (due 03/2025) Constipation: - Continue colace 100mg BID Pelvic floor muscle weakness: She has symptoms and findings consistent with pelvic floor muscle weakness. We discussed the relationship between the pelvic floor and her other bothersome symptoms. I recommend a pelvic floor muscle exercise regimen to strengthen her pelvic floor. Referral to PFPT was made. D/w and seen by Dr Quiros [facility] 6 months Margaret Parks MD PGY-5 Urogynecology & Reconstructive Pelvic Surgery Fellow Pager #: [phone] 28/11 Urogyn Fellow [employer] Pager [phone] === FPMRS Attending Note Attending Physician Note (GC) I interviewed and examined this patient with the fellow. I reviewed the history and exam detailed in the note. I agree with the medical decision making and have edited the note to reflect my findings, assessment, and plan as needed. Mike Quiros MD Division of Female Pelvic Medicine and Reconstructive Surgery documented in this encounter [facility] 10-09-2024 Instructions Margaret Parks MD - 10/09/2024 1:30 PM EDT Please call [phone] to schedule your pelvic floor physical therapy at one of the following locations: [facility] [address] [place] [address] [facility] (Neck and Back Therapy) [address], [place] [address] [facility] [address] [place] [address] Outpatient Rehabilitation Out[facility] [address] [place] [address] [facility] [address] [place] [place] [address] Physical Therapy at [facility] [address], [place] [address] [facility] [address] [place] [address] Outpatient Rehabilitation Outpatient Care [address] [place] [address] [facility] [address] [address], [address] [place] [address] documented in this encounter [facility] 08-21-2024 Note HNO ID: [id number] Author: CHENTE ANTUNEZ RN Service: ? Author Type: Registered Nurse Type: Progress Notes Filed: 08/21/2024 14:53 Note Text: Patient identified by name and date of . Isidra Lematamir is here for a Depo Provera injection. Patient brought medication. Date last injected: 06/12/24 Depo-Provera, 150 mg, administered IM left upper quadrant gluteus, Lot # [id number], expiration date 10/05/2025. Depo-Provera was given without incident. Date of last menses: Patient's last menstrual period was 06/19/2022 (approximate). Irregular bleeding - No Menses ceased - Yes Patient instructed to return to clinic on 10 weeks. [email or web address] [email or web address] Provider Dr. Lancaster was present in office at time of injection. Chente Antunez RN [facility] 08-21-2024 History of Present illness Narrative Patient identified by name and date of . Isidra Zaldivar is here for a Depo Provera injection. Patient brought medication. Date last injected: 06/12/24 Depo-Provera, 150 mg, administered IM left upper quadrant gluteus, Lot # [id number], expiration date 10/05/2025. Depo-Provera was given without incident. Date of last menses: Patient's last menstrual period was 06/19/2022 (approximate). Irregular bleeding - No Menses ceased - Yes Patient instructed to return to clinic on 10 weeks. [email or web address] [email or web address] Provider Dr. Lancaster was present in office at time of injection. Chente Antunez RN documented in this encounter [facility] 07-04-2024 Evaluation + Plan note Associated Problem(s): Encounter to establish care Pt is here to establish care with new PCP. Pt reports being see by psychiatrist around [place] and see provider [facility]. Pt was advised to sign KATELYN before leaving the office and bring all her med next visit. Pt denies any concern at this time except weight loss. [facility] [employer] Phone: 07-04-2024 Evaluation + Plan note Associated Problem(s): Unintentional weight loss Pt reports losing 160 pounds in 3 months, and expressed her concern. Pt states that she sees provider at [facility]. Orders: TSH W/FT4 REFLEX CBC, EDIF, PLATELET COMPREHENSIVE METABOLIC PANEL HIV 1 AND 2 ANTIBODIES [facility] [employer] Phone: 07-04-2024 Evaluation + Plan note Associated Problem(s): Bipolar 2 disorder Pt reports seeing psychiatrist in her home town around [place] and currently on different psych med but pt did not bring her meds. Pt was referred to psychiatrist. Pt was advised to bring all her med, and sign KATELYN before she leaves the office. Orders: AMB REFERRAL TO PSYCHIATRY [facility] [employer] [facility] [employer] Phone: 07-04-2024 Evaluation + Plan note Associated Problem(s): Moderate cigarette smoker Pt reports smoking 1 PPD since she was 17, and not ready to quit. We discussed the danger of smoking including COPD, lung cancer and CVD and encouraged pt to quit. [facility] [employer] Phone: 07-04-2024 History of Present illness Narrative Dental [facility] Outpatient Visit Problem list, medications, allergies reviewed: Yes Chief Complaint Chief Complaint Patient presents with Establish Care Pt is here to establish care and need medication refill. History of Present Illness Isidra is a 38 y.o. female who has a past medical history of Arthritis, Asthma, Depression, Gallstone (2022), GERD (gastroesophageal reflux disease), Migraine, Renal disease, Schizophrenia, and Seizure. She presents today for the following: Establish Care: Previous PCP: Dr. Lancaster Active Medical Problems: I have bad left lung Current medications: (Reviewed in Medication tab) Allergies: Suboxone, and phenergan Surgical history: Left knee surgery 10 years ago (Reviewed in History tab) Significant family history: none. 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 Past Medical History: Diagnosis Date Arthritis Asthma Depression Gallstone 2022 GERD (gastroesophageal reflux disease) Migraine Renal disease Schizophrenia Seizure pt states last seizure was 2002 Family History Problem Relation Age of Onset Heart Disease - Other Mother Other - Specify Mother copd from smoking Lung Cancer Maternal Grandmother Lung Cancer Maternal Grandfather Breast Cancer Other Current Outpatient Medications Medication Sig Dispense Refill Aspirin [address] tablet Take 1 tablet by mouth daily. busPIRone 5 MG tablet Take 1 tablet by mouth as needed. chlorproMAZINE 10 MG tablet Take 1 tablet by mouth 2 times daily. cholecalciferol 50 MCG (2000 UNIT) tablet Take 1 tablet by mouth daily. desmopressin 0.2 MG tablet Take 1 tablet by mouth daily. 30 tablet 1 Docusate 100 MG capsule Take 1 capsule by mouth 2 times daily. 60 capsule 3 fluticasone 50 MCG/ACT Suspension nasal spray 2 sprays by Does Not Apply route daily. lamoTRIgine 100 MG tablet Take 1.5 tablets by mouth 2 times daily. lamoTRIgine 150 MG tablet TAKE 1 TABLET BY MOUTH TWICE DAILY 60 tablet 11 Levothyroxine 75 MCG tablet Take 1 tablet by mouth every morning before breakfast. medroxyPROGESTERone acetate 150 MG/ML Suspension inj vial Inject 1 mL intramuscularly every 90 Days. Next dose due 04/03/2024 oxyBUTYnin CR 5 MG Tab SR 24 HR tablet Take 1 tablet by mouth daily. 90 tablet [address] pantopraz[address] tablet DR Take 2 tablets by mouth daily. Topiramate 25 MG tablet Take 1 tablet by mouth daily. No current facility-administered medications for this visit. Allergies Allergen Reactions Buprenorphine-Naloxone Hives and Nausea and Vomiting Phenergan [Promethazine] Rash Seasonal [*Seasonal] Social History Socioeconomic History Marital status: Spouse name: Not on file Number of children: Not on file Years of education: Not on file Highest education level: Not on file Occupational History Not on file Tobacco Use Smoking status: Every Day Current packs/day: 1.00 Average packs/day: 1 pack/day for 14.0 years (14.0 ttl pk-yrs) Types: Cigarettes Passive exposure: Current Smokeless tobacco: Never Tobacco comments: pt given quitting tobacco use handout. Vaping Use Vaping status: Never Used Substance and Sexual Activity Alcohol use: Never Comment: recovering addict- clean 7 yrs(2015) Drug use: Not Currently Types: Marijuana Comment: last THC 3 years ago. None recently in Sexual activity: Yes Partners: Male control/protection: Injection Other Topics Concern Service Not Asked Blood Transfusions Not Asked Caffeine Concern Not Asked Occupational Exposure No Hobby Hazards No Sleep Concern Not Asked Stress Concern Not Asked Weight Concern Not Asked Special Diet Not Asked Back Care Not Asked Exercise Not Asked Bike Helmet Not Asked Seat Belt Not Asked Domestic Violence Not Asked Social History Narrative Not on file Social Drivers of Health Financial Resource Strain: Low Risk (07/04/2024) Overall Financial Resource Strain (CARDIA) Difficulty of Paying Living Expenses: Not hard at all Food Insecurity: No Food Insecurity (07/04/2024) NCSS - Food Insecurity Worried About Running Out of Food in the Last Year: No Ran Out of Food in the Last Year: No Transportation Needs: No Transportation Needs (07/04/2024) NCSS - Transportation Lack of Transportation: No Physical Activity: Unknown (11/07/2018) Exercise Vital Sign Days of Exercise per Week: Patient declined Minutes of Exercise per Session: Patient declined Stress: Not on file Social Connections: Unknown (11/07/2018) Social Connection and Isolation Panel [NHANES] Frequency of Communication with Friends and Family: Patient declined Frequency of Social Gatherings with Friends and Family: Patient declined Attends Anabaptism Services: Patient declined Active Member of Clubs or Organizations: Patient declined Attends Club or Organization Meetings: Patient declined Marital Status: Patient declined Personal Safety: Unknown (11/07/2018) Humiliation, Afraid, Rape, and Kick questionnaire Fear of Current or Ex-Partner: Patient declined Emotionally Abused: Patient declined Physically Abused: Patient declined Sexually Abused: Patient declined Housing Stability: Not At Risk (07/04/2024) NCSS - Housing/Utilities Has Housing: Yes Worried About Losing Housing: No Unable to Get Utilities: No Review of Systems Constitutional: Positive for unexpected weight change. I lost 160 pounds in 3 months. I see GI [facility] Respiratory: Negative. Cardiovascular: Negative. Gastrointestinal: Negative. Genitourinary: Negative. Skin: Negative. Neurological: Negative. Psychiatric/Behavioral: Negative for suicidal ideas. Anxiety, I see psychiatrist in near [facility] Objective Findings Vitals: BP 126/74 Pulse 68 Temp 97 F (36.1 C) (Temporal) Resp 21 Ht 1.702 m (5' 7) Wt 77.6 kg (171 lb) SpO2 99% BMI 26.78 kg/m Smoking Status Every Day Wt Readings from Last 3 Encounters: 07/04/24 77.6 kg (171 lb) 03/13/24 76.7 kg (169 lb) 08/23/23 72 kg (158 lb 12.8 oz) Physical Exam Vitals reviewed. Constitutional: Appearance: Normal appearance. HENT: Head: Normocephalic and atraumatic. Right Ear: Tympanic membrane, ear canal and external ear normal. Left Ear: Tympanic membrane, ear canal and external ear normal. Mouth/Throat: Dentition: Dental caries present. Comments: Multiple missed teeyth Cardiovascular: Rate and Rhythm: Normal rate and regular rhythm. Pulses: Normal pulses. Heart sounds: Normal heart sounds. Pulmonary: Effort: Pulmonary effort is normal. Breath sounds: Normal breath sounds. Abdominal: General: Bowel sounds are normal. Palpations: Abdomen is soft. There is no mass. Tenderness: There is no abdominal tenderness. Neurological: General: No focal deficit present. Deep Tendon Reflexes: Reflexes normal. Psychiatric: Mood and Affect: Mood normal. Behavior: Behavior normal. Thought Content: Thought content normal. Judgment: Judgment normal. Recent Labs/Imaging: The following labs and imaging studies were independently reviewed and interpreted by myself. No results found for: HGBA1C, HDL, LDLCALC, LDLDIRECT Lab Results Component Value Date CREATSERUM 0.67 03/13/2024 HGB 13.5 10/21/2019 Screenings Completed Depression: Low Risk (07/04/2024) Depression PHQ-9 Score: 0 Assessment and Plan Isidra Zaldivar is a 38 y.o. female who presents for Establish Care (Pt is here to establish care and need medication refill. ) Assessment & Plan Encounter to establish care Pt is here to establish care with new PCP. Pt reports being see by psychiatrist around [place] and [facility] provider [facility]. Pt was advised to sign KATELYN before leaving the office and bring all her med next visit. Pt denies any concern at this time except weight loss. Unintentional weight loss Pt reports losing 160 pounds in 3 months, and expressed her concern. Pt states that she sees provider at [facility]. Orders: TSH W/FT4 REFLEX CBC, EDIF, PLATELET COMPREHENSIVE METABOLIC PANEL HIV 1 AND 2 ANTIBODIES Bipolar 2 disorder Pt reports seeing psychiatrist in her home town around [place] and currently on different psych med but pt did not bring her meds. Pt was referred to psychiatrist. Pt was advised to bring all her med, and sign KATELYN before she leaves the office. Orders: AMB REFERRAL TO PSYCHIATRY Need for dental care Multiple dental carries. Pt was referred to dentist. Orders: AMB REFERRAL TO DENTISTRY Moderate cigarette smoker Pt reports smoking 1 PPD since she was 17, and not ready to quit. We discussed the danger of smoking including COPD, lung cancer and CVD and encouraged pt to quit. Follow-up: Return in about 4 weeks (around 08/01/2024) for wellness check and medication review. MARTIN Gerber documented in this encounter [facility] Work Phone: 07-04-2024 Miscellaneous Notes Associated Problem(s): Encounter to establish care Pt is here to establish care with new PCP. Pt reports being see by psychiatrist around [place] and see provider [facility]. Pt was advised to sign KATELYN before leaving the office and bring all her med next visit. Pt denies any concern at this time except weight loss. Associated Problem(s): Unintentional weight loss Pt reports losing 160 pounds in 3 months, and expressed her concern. Pt states that she sees provider at [facility]. Orders: TSH W/FT4 REFLEX CBC, EDIF, PLATELET COMPREHENSIVE METABOLIC PANEL HIV 1 AND 2 ANTIBODIES Associated Problem(s): Bipolar 2 disorder Pt reports seeing psychiatrist in her home town around [place] and currently on different psych med but pt did not bring her meds. Pt was referred to psychiatrist. Pt was advised to bring all her med, and sign KATELYN before she leaves the office. Orders: AMB REFERRAL TO PSYCHIATRY Associated Problem(s): Moderate cigarette smoker Pt reports smoking 1 PPD since she was 17, and not ready to quit. We discussed the danger of smoking including COPD, lung cancer and CVD and encouraged pt to quit. documented in this encounter [facility] Work Phone: 06-12-2024 Note HNO ID: [id number] Author: MIGDALIA CEDILLO RN Service: ? Author Type: Registered Nurse Type: Progress Notes Filed: 06/12/2024 14:58 Note Text: Patient identified by name and date of . Isidra Zaldivar is here for a Depo Provera injection. Patient brought medication. Date last injected: 04/03/24 Depo-Provera, 150 mg, administered IM right upper quadrant gluteus, Lot # [id number], expiration date 09/2025. Depo-Provera was given without incident. Date of last menses: Patient's last menstrual period was 06/19/2022 (approximate). Irregular bleeding - No Menses ceased - Yes Medication verified by dispensing pharmacist Patient instructed to return to clinic on 10 weeks. [email or web address] [email or web address]-Provera%[email or web address] annie.pdf Provider Migdalia Elliott MD was present in office at time of injection. Migdalia Cedillo RN [facility] 06-12-2024 History of Present illness Narrative Patient identified by name and date of . Isidra Zaldivar is here for a Depo Provera injection. Patient brought medication. Date last injected: 04/03/24 Depo-Provera, 150 mg, administered IM right upper quadrant gluteus, Lot # [id number], expiration date 09/2025. Depo-Provera was given without incident. Date of last menses: Patient's last menstrual period was 06/19/2022 (approximate). Irregular bleeding - No Menses ceased - Yes Medication verified by dispensing pharmacist Patient instructed to return to clinic on 10 weeks. [email or web address] [email or web address] [email or web address] Provider Migdalia Elliott MD was present in office at time of injection. Migdalia Cedillo RN documented in this encounter [facility] 04-03-2024 Note HNO ID: [id number] Author: MIGDALIA CEDILLO RN Service: ? Author Type: Registered Nurse Type: Progress Notes Filed: 04/03/2024 14:17 Note Text: Patient identified by name and date of . Isidra Zaldivar is here for a Depo Provera injection. Patient brought medication. Date last injected: 01/10/24 Depo-Provera, 150 mg, administered IM left upper quadrant gluteus, Lot # [id number], expiration date 09/2025. Depo-Provera was given without incident. Date of last menses: Patient's last menstrual period was 06/19/2022 (approximate). Irregular bleeding - No Medication verified by dispensing pharmacist Patient instructed to return to clinic on 10 weeks. [email or web address] [email or web address]%[email or web address] annie.pdf Provider Maria C Espino CNM was present in office at time of injection. Migdalia Cedillo RN [facility] 04-03-2024 History of Present illness Narrative Patient identified by name and date of . Isidra Zaldivar is here for a Depo Provera injection. Patient brought medication. Date last injected: 01/10/24 Depo-Provera, 150 mg, administered IM left upper quadrant gluteus, Lot # [id number], expiration date 09/2025. Depo-Provera was given without incident. Date of last menses: Patient's last menstrual period was 06/19/2022 (approximate). Irregular bleeding - No Medication verified by dispensing pharmacist Patient instructed to return to clinic on 10 weeks. [email or web address] [email or web address]%[email or web address] annie.pdf Provider Maria C Espino CNM was present in office at time of injection. Migdalia Cedillo RN documented in this encounter [facility] 03-13-2024 History of Present illness Narrative Urogynecology Follow-Up HPI Isidra Zaldivar is a 38 y.o. female, presents for follow up of Urinary incontinence and nocturia/enuresis. Interval history: Continues to take DDAVP at night for nocturia/enuresis in addition to oxybutynin SR 5 mg daily. Patient reports 1-2 episodes of bedwetting a month. She would like to continue the current regimen and declines alternatives. Urine today concentrated with nitrites but patient denies dysuria. She no longer drinks soda but reports drinking cups of coffee daily and inadequate water intake. Patient completed PFPT in 2022, continues to do exercises and denies incontinence. Denies headache, dry eyes, xerostomia, dysuria, nausea and vomiting or other issues with DDAVP. Continues to have bowel movements every 2 days with colace. Urinary Incontinence: Yes Voiding Dysfunction: No Urinary Frequency: Yes Urinary Urgency: Yes Prolapse Symptoms: No Defecatory Dysfunction: No Fecal Incontinence: No Abnormal Bleeding: amenorrheic on Depo, last shot 02/09/24 Pain: No Abnormal Vaginal Discharge: No Gynecological History: Paps: normal NILM HPV neg 02/2024 Mammograms: n/a Menstrual: amenorrheic on Depo. No LMP recorded. Patient has had an injection. Menopausal: No Physical Exam BP 120/57 Pulse 75 Resp 18 Wt 169 lb (76.7 kg) BMI 26.47 kg/m Smoking Status Every Day Body mass index is 26.47 kg/m . Gen: well appearing, NAD, pleasant Chest: RRR, CTAB : exam deferred Assessment: This is a 38 y.o. female with JOSE (urge predominant), constipation and enuresis currently managed with DDAVP, oxybutynin and colace. Plan: JOSE, urge predominant: - Currently taking oxybutynin CR 5 mg daily. Working very well and denies side effects, would like to continue. - Refills sent. Enuresis: 1-2x a month, doing well - Currently taking 0.2 mg DDAVP nighty, will continue current dose - Drinks caffeine and inadequate water intake. No dysuria - Urine dip +nitrites, no RBCs. - Prior BMPs wnl, last 08/23/2023. Will repeat today - Encouraged increased water intake Constipation: - Continue colace 100mg BID D/w and seen by Dr Quiros RTC in 6 months Tania Currie MD Obstetrics and Gynecology PGY-2 Pager #[phone] === FPMRS Attending Note Attending Physician Note (GC) I interviewed and examined this patient with the resident and I completed the entirety of the counseling. I reviewed the history and exam detailed in the note. I agree with the medical decision making and have edited the note to reflect my findings, assessment, and plan as needed. Mike Quiros MD Division of Female Pelvic Medicine and Reconstructive Surgery Isidra Zaldivar is a 38 y.o. here for a Urogynecology appointment. No LMP recorded. Patient has had an injection. Patient given thorough instructions for collection of CCU. Pt states understanding. CCU collected. Urine Dip POCT done. Please see results tab. PVR per bladder scan: n/a Reason for visit: - denies pain today- no s/sx's of UTI today - here for medicine refill/discussion/lab draw needed? - done with PFPT Venipuncture performed successfully documented in this encounter [facility] 02-15-2024 Telephone encounter Note Left message to call office. Meghan Campos RN [facility] 02-15-2024 Telephone encounter Note ----- Message from Trang Mccalin APRN.CNP sent at 02/14/2024 8:26 PM EDT ----- Pap and HPV negative. Next Pap in 3 years due to past positive HPV. Eleonora noted on Pap - if she is having any symptoms, she should treat with Monistat 7 or generic - a applicator full at bedtime every night for 7 nights. Trang Mcclain APRN.CNP [facility] 02-15-2024 Miscellaneous Notes Left message to call office. Meghan Campos RN ----- Message from Trang Mcclain APRN.CNP sent at 02/14/2024 8:26 PM EDT ----- Pap and HPV negative. Next Pap in 3 years due to past positive HPV. Eleonora noted on Pap - if she is having any symptoms, she should treat with Monistat 7 or generic - a applicator full at bedtime every night for 7 nights. Trang Mcclain APRN.CNP documented in this encounter [facility] 02-09-2024 Note HNO ID: [id number] Author: TRANG MCCLAIN APRN.CNP Service: ? Author Type: Nurse Practitioner Type: Progress Notes Filed: 02/09/2024 10:34 Note Text: Chip Drier offered: Patient declines. Isidra is a 38 year old who presents for an annual gynecologic exam without complaints. Menses: No Menses - Depo Provera. Contraception: Depo Provera every 10 weeks HPV vaccine: completed Last Pap:12/27/2022 negative HPV negative Abnormal Pap: 04/22/2019 abnormal ASCUS HPV +, Leep Procedure 05/13/2019 high grade squamous intraepithelial lesion 05/22/19 - Endocervix, LEEP benign; 12/2021 normal, HRHPV positive [place] benign Last mammogram: never Sexually active: Not since 2019 History of STDS: GC and HPV Patient concerns for STD exposure: No. Last sexual contact: 2019 Documentation from previous visit of 12/27/2022 was copied and pasted, documentation has been reviewed and edited as necessary for today's visit. 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: Sexual Activity: Not Currently; Male Contraception: Injection PAST MEDICAL HISTORY Diagnosis Date ASCUS with positive high risk HPV cervical 04/2019 Learning disability OAB (overactive bladder) [facility] Schizo affective schizophrenia (HCC) PAST SURGICAL HISTORY Procedure Laterality Date CERVIX UTERI CONIZA LP ELCTRO EXCI 2019 LEEP pathology benign EYE SURGERY HX PAST SURGICAL HISTORY OF Bilateral bilateral knee surgery FAMILY HISTORY Problem Relation Age of Onset Heart disease Mother other (respiratory) Mother emphysema, former smoker Lung Cancer Father smoker Asthma Sister No Known Problems Sister No Known Problems Brother Lung Cancer Maternal Grandmother smoke Heart disease Maternal Grandmother SOCIAL HISTORY Social History Tobacco Use Smoking status: Every Day Current packs/day: 1.00 Average packs/day: 1 pack/day for 20.0 years (20.0 ttl pk-yrs) Types: Cigarettes Smokeless tobacco: Never Vaping Use Vaping status: Never Used Substance Use Topics Alcohol use: Never Drug use: Never Comment: 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 No bloating, early satiety, indigestion, or increased flatulence. Bladder: No dysuria, gross hematuria, urinary frequency, urinary urgency, or incontinence. Breast: No breast lumps, nipple d/c, overlying skin changes, redness or skin retraction. Allergies and current medication updated:Yes SENSITIVE EXAM: The sensitive examination was discussed with the Patient or Patient's Authorized Laborer Tin Can. As applicable, any other physician, advance practice provider, medical student, or other health professional student that will be observing or involved in the sensitive examination for educational or training purposes was discussed with the Patient or Authorized Laborer Tin Can. The Patient or Authorized Laborer Tin Can has agreed to proceed with the sensitive examination. (Sensitive examination includes inspection and/or palpation of the breasts, pelvis, prostate and anorectal regions). EXAM: BP 132/85 Ht 5' 6.5 (1.69m) Wt 166 lb 9.6 oz (75.6kg) LMP 06/19/2022 BMI 26.49 kg/(m2). GENERAL: pleasant, female in no apparent distress HEENT: Normocephalic, atraumatic, mucus membranes moist, and no lesions NECK: Supple, full range of motion, no adenopathy, and thyroid normal DERMATOLOGY: Normal, without lesions, non-icteric, and non-hirsute BREAST: soft, non-tender, symmetric, no dominant mass, normal nipple-areolar complex, no lymphadenopathy, and no nipple discharge CHEST: Normal inspiratory effort ABDOMEN: soft, non-tender, and no masses PELVIC: external genitalia normal, normal Bartholin's glands, urethra, Punaluu's glands, no vulvar lesions, no cervical lesions, physiologic discharge present, normal appearing perineal body and perianal region BIMANUAL: uterus normal size, shape and consistency, no adnexal masses, and non-tender RECTOVAGINAL: deferred. NEURO: alert and oriented x3,exam grossly non-focal EXTREMITIES: normal ASSESSMENT/PLAN: 1) Health maintenance: Pap done with HPV. Mammogram starting age 40. Nutrition, exercise and routine health maintenance exams reviewed. Smoking cessation: Benefits of smoking cessation reviewed. Patient encouraged to avoid smoking. HPV vaccine: completed series 2) Contraception: Depo Provera. Contraceptive options reviewed and information provided. 3) STD screening: Declined STD check. 4) Follow up one year or sooner as needed Trang Mcclain APRN.[facility] 02-09-2024 History of Present illness Narrative Chip Drier offered: Patient declines. Isidra is a 38 year old who presents for an annual gynecologic exam without complaints. Menses: No Menses - Depo Provera. Contraception: Depo Provera every 10 weeks HPV vaccine: completed Last Pap:12/27/2022 negative HPV negative Abnormal Pap: 04/22/2019 abnormal ASCUS HPV +, [place] Procedure 05/13/2019 high grade squamous intraepithelial lesion 05/22/19 - Endocervix, LEEP benign; 12/2021 normal, HRHPV positive [place] benign Last mammogram: never Sexually active: Not since 2019 History of STDS: GC and HPV Patient concerns for STD exposure: No. Last sexual contact: 2019 Documentation from previous visit of 12/27/2022 was copied and pasted, documentation has been reviewed and edited as necessary for today's visit. 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: Sexual Activity: Not Currently; Male Contraception: Injection PAST MEDICAL HISTORY Diagnosis Date ASCUS with positive high risk HPV cervical 04/2019 Learning disability OAB (overactive bladder) [facility] Schizo affective schizophrenia (HCC) PAST SURGICAL HISTORY Procedure Laterality Date CERVIX UTERI CONIZA LP ELCTRO EXCI 2019 LEEP pathology benign EYE SURGERY HX PAST SURGICAL HISTORY OF Bilateral bilateral knee surgery FAMILY HISTORY Problem Relation Age of Onset Heart disease Mother other (respiratory) Mother emphysema, former smoker Lung Cancer Father smoker Asthma Sister No Known Problems Sister No Known Problems Brother Lung Cancer Maternal Grandmother smoke Heart disease Maternal Grandmother SOCIAL HISTORY Social History Tobacco Use Smoking status: Every Day Current packs/day: 1.00 Average packs/day: 1 pack/day for 20.0 years (20.0 ttl pk-yrs) Types: Cigarettes Smokeless tobacco: Never Vaping Use Vaping status: Never Used Substance Use Topics Alcohol use: Never Drug use: Never Comment: 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 No bloating, early satiety, indigestion, or increased flatulence. Bladder: No dysuria, gross hematuria, urinary frequency, urinary urgency, or incontinence. Breast: No breast lumps, nipple d/c, overlying skin changes, redness or skin retraction. Allergies and current medication updated:Yes SENSITIVE EXAM: The sensitive examination was discussed with the Patient or Patient's Authorized Laborer Tin Can. As applicable, any other physician, advance practice provider, medical student, or other health professional student that will be observing or involved in the sensitive examination for educational or training purposes was discussed with the Patient or Authorized Laborer Tin Can. The Patient or Authorized Laborer Tin Can has agreed to proceed with the sensitive examination. (Sensitive examination includes inspection and/or palpation of the breasts, pelvis, prostate and anorectal regions). EXAM: BP 132/85 Ht 5' 6.5 (1.69m) Wt 166 lb 9.6 oz (75.6kg) LMP 06/19/2022 BMI 26.49 kg/(m^2). GENERAL: pleasant, female in no apparent distress HEENT: Normocephalic, atraumatic, mucus membranes moist, and no lesions NECK: Supple, full range of motion, no adenopathy, and thyroid normal DERMATOLOGY: Normal, without lesions, non-icteric, and non-hirsute BREAST: soft, non-tender, symmetric, no dominant mass, normal nipple-areolar complex, no lymphadenopathy, and no nipple discharge CHEST: Normal inspiratory effort ABDOMEN: soft, non-tender, and no masses PELVIC: external genitalia normal, normal Bartholin's glands, urethra, Punaluu's glands, no vulvar lesions, no cervical lesions, physiologic discharge present, normal appearing perineal body and perianal region BIMANUAL: uterus normal size, shape and consistency, no adnexal masses, and non-tender RECTOVAGINAL: deferred. NEURO: alert and oriented x3,exam grossly non-focal EXTREMITIES: normal ASSESSMENT/PLAN: 1) Health maintenance: Pap done with HPV. Mammogram starting age 40. Nutrition, exercise and routine health maintenance exams reviewed. Smoking cessation: Benefits of smoking cessation reviewed. Patient encouraged to avoid smoking. HPV vaccine: completed series 2) Contraception: Depo Provera. Contraceptive options reviewed and information provided. 3) STD screening: Declined STD check. 4) Follow up one year or sooner as needed Trang Mcclain APRN.[facility] documented in this encounter [facility] 01-10-2024 Note HNO ID: [id number] Author: MEGHAN CAMPOS RN Service: ? Author Type: Registered Nurse Type: Progress Notes Filed: 01/10/2024 16:27 Note Text: Patient identified by name and date of . Isidra Zaldivar is here for a Depo Provera injection. Patient brought medication. Date last injected: 10/18/23 Depo-Provera, 150 mg, administered IM right upper quadrant gluteus, Lot # [id number], expiration date 03/07/2025. Depo-Provera was given without incident. Date of last menses: Patient's last menstrual period was 06/19/2022 (approximate). Irregular bleeding - No Menses ceased - Yes STD prevention discussed: Yes Patient instructed to return to clinic in 12 weeks. [email or web address] [email or web address]-[email or web address].pdf Provider Migdalia Elliott MD was present in office at time of injection. Meghan Campos RN [facility] 01-10-2024 History of Present illness Narrative Patient identified by name and date of . Isidra Zaldivar is here for a Depo Provera injection. Patient brought medication. Date last injected: 10/18/23 Depo-Provera, 150 mg, administered IM right upper quadrant gluteus, Lot # [id number], expiration date 03/07/2025. Depo-Provera was given without incident. Date of last menses: Patient's last menstrual period was 06/19/2022 (approximate). Irregular bleeding - No Menses ceased - Yes STD prevention discussed: Yes Patient instructed to return to clinic in 12 weeks. [email or web address] [email or web address]-[email or web address] annie.pdf Provider Migdalia Elliott MD was present in office at time of injection. Meghan Campos RN documented in this encounter [facility] 01-10-2024 Telephone encounter Note Please file depo CAM order for nurse visit today. Chente Antunez RN [facility] 01-10-2024 Miscellaneous Notes Please file depo CAM order for nurse visit today. Chente Antunez, RN documented in this encounter [facility] 01-04-2024 Telephone encounter Note Last seen for annual exam on 12/27/22. Has upcoming annual on 02/09/24. Meghan Campos RN [facility] 01-04-2024 Miscellaneous Notes Last seen for annual exam on 12/27/22. Has upcoming annual on 02/09/24. Meghan Campos RN documented in this encounter [facility] 10-18-2023 Note HNO ID: [id number] Author: ANASTACIA REESE LPN Service: ? Author Type: LICENSED NURSE Type: Progress Notes Filed: 10/18/2023 11:09 Note Text: Patient identified by name and date of . Isidra Zaldivar is here for a Depo Provera injection. Patient brought medication. Date last injected: 07/19/2023 Depo-Provera, 150 mg, administered IM left upper quadrant gluteus, Lot # [id number], expiration date 01/2025. Depo-Provera was given without incident. Date of last menses: Patient's last menstrual period was 06/19/2022 (approximate). Irregular bleeding - Yes Menses ceased - Yes STD prevention discussed: Yes Patient instructed to return to clinic in 12 weeks. [email or web address] [email or web address] Provider Dr. Elliott was present in office at time of injection. Anastacia Reese LPN [facility] 10-18-2023 History of Present illness Narrative Patient identified by name and date of . Isidra Zaldivar is here for a Depo Provera injection. Patient brought medication. Date last injected: 07/19/2023 Depo-Provera, 150 mg, administered IM left upper quadrant gluteus, Lot # [id number], expiration date 01/2025. Depo-Provera was given without incident. Date of last menses: Patient's last menstrual period was 06/19/2022 (approximate). Irregular bleeding - Yes Menses ceased - Yes STD prevention discussed: Yes Patient instructed to return to clinic in 12 weeks. [email or web address] [email or web address] [email or web address] Provider Dr. Elliott was present in office at time of injection. Anastacia Reese LPN documented in this encounter [facility] 09-09-2023 Hospital Discharge instructions Patient Education 09/09/2023 08:20:42 Radiology- CT Coronary Angiogram (CUSTOM) CERRILLOS Coronary CT Angiogram (Coronary CTA or Cardiac CTA) Discharge Instructions [facility] [address] [place] [address] Today, you had a Coronary CT Angiogram. This procedure was done to look at the anatomy of your heart and the surrounding vessels. The images obtained are to help evaluate the presence of coronary heart disease. These instructions should be followed after your procedure to reduce the chance of experiencing complications. Please follow the instructions below to reduce the chance of experiencing complications. Activity: Rest for the remainder of the day. You may resume your normal activity tomorrow. Avoid alcoholic beverages for 24 hours after your procedure. Do not drive or operate heavy machinery for 24 hours after your procedure. Do not make any legal decisions for 24 hours after your procedure. Diet: Resume your normal diet as tolerated. Medication: Please resume home medications today as scheduled When to seek medical help: Arm, neck or jaw pain Angina (chest pain) or chest discomfort Shortness of breath Dizziness or lightheaded Hives or itching If you experience any of these issues during the first 24 hours, please follow the instruction below or go to the Emergency Department: First 24 hours [phone] After 24 hours, contact the physician who ordered this procedure for you. Obtaining test results: Please make an appointment with your doctor to obtain your test results. They are usually available within 4 to 5 business days. Do not assume everything is normal if you have not heard from your doctor or medical facility. It is important for you to follow up on all of your test results. Follow Up Care 07/04/2023 14:35:07 With:GEOFFREY HUTTON Address: [address] [place] [address] [address] [place] [address] [phone] When: Unknown Comments:Follow-up as scheduled [facility] 09-09-2023 Summary of episode note Discharge Instructions Thank you for allowing [facility] to assist you with your healthcare needs. The following is important discharge information regarding your hospital visit. Your Care Team OLMAN SON DO What to do next Scheduled Follow-Up Appointments Appointment Type When With Where Contact InformationyyCT Coronary Extracardiac 09/09/2023 10:[address] [facility] Annual 10/18/2023 02:00 PM EDT OLMAN SON DO [facility] [address] [phone] Follow Up Appointments Follow Up with GEOFFREY HUTTON When Why: Follow-up as scheduled Where: [facility] [address] [place] [address] [address] [place] [id number] [phone] Allergies ZyrTEC promethazine (Eruption) Flovent HFA (Swelling, Palpitations) Phenergan (Hives) guaiFENesin (Vomiting) seasonal enviromental (stuffy nose, sneezing) Medications Please ask your primary doctor or pharmacist before taking any other medication not listed, including over the counter drugs, herbal medications, vitamins and or supplements as they may interact with your home medications. What How Much When Why Instructions Last Dose Unchanged albuterol (Ventolin HFA MDI (90 mcg/ inh) inhalation aerosol) 2 puff(s) by inhalation Every 4 hours as needed for Shortness of breath or wheezing Duration: 30 Days use with spacer chamber. Okay to substitute alternative brand if needed for insurance. Unchanged aspirin (aspirin 81 mg oral delayed release tablet) 1 tab(s) by mouth Once a day Duration: 90 Days do not crush or chew Unchanged bacitracin topical (bacitracin topical ointment) 1 Applicatorful Topical Three (3) times a day Duration: 14 Days As needed for open toe crack/ wound Unchanged busPIRone (busPIRone 5 mg oral tablet) TAKE 1 TABLET BY MOUTH TWICE DAILY NEEDED FOR ANXIETY Unchanged chlorproMAZINE (chlorproMAZINE 25 mg oral tablet) TAKE 1 TABLET BY MOUTH EVERY DAY Unchanged cholecalciferol (Vitamin D3 50 mcg (2000 intl units) oral tablet) 1 tab(s) by mouth Every day Duration: 90 Days with food Unchanged ciclopirox topical (ciclopirox 8% topical solution) 1 application Topical Every day Duration: 48 week(s) apply to affected toenails and surrounding area once daily, remove with alcohol every 7 days prior to reapplication Unchanged desmopressin (desmopressin 0.2 mg oral tablet) Take 1 tablet by mouth daily. Unchanged docusate (DOK 100 mg oral capsule) 1 cap by mouth Two (2) times a day Unchanged fluticasone nasal (Flonase 50 mcg/ inh nasal spray) 2 spray(s) each nostril Once a day (in the morning) as needed for Nasal congestion Allergic rhinitis Duration: 30 Days in each nostril Unchanged folic acid (folic acid 1 mg oral tablet) 1 tab(s) by mouth Once a day Duration: 90 Days Unchanged lamoTRIgine (lamoTRIgine 150 mg oral tablet) TAKE 1 TABLET BY MOUTH TWICE DAILY Unchanged levothyroxine (levothyroxine 75 mcg (0.075 mg) oral tablet) TAKE 1 TABLET BY MOUTH DAILY Unchanged medroxyPROGESTERone (medroxyPROGESTERone 150 mg/ mL intramuscular suspension) INJECT 1ML INTRAMUSCULARLY EVERY 11 WEEKS Unchanged mometasone topical (mometasone 0.1% topical cream) 1 application Topical Every day as needed for Rash Duration: 30 Days apply a thin film to affected area once daily. Do not use occlusive dressings. After 14 days use take at least 7 days off before reapplying. Unchanged oxybutynin (oxybutynin 10 mg/ 24 hr oral tablet, extended release) 1 tab(s) by mouth Once a day Unchanged pantoprazole (pantoprazole 40 mg oral enteric coated tablet) Unchanged topiramate (topiramate 25 mg oral tablet) TAKE 1 TABLET BY MOUTH EVERY NIGHT AT BEDTIME Please take this list to your next doctor s visit. Bring all medications you take, including over the counter medications, herbals and other supplements with you to your doctor s visit. Patients and families are reminded to discard old lists and to update any records with all medication providers or retail pharmacies. Education Materials CERRILLOS Coronary CT Angiogram (Coronary CTA or Cardiac CTA) Discharge Instructions [facility] [address] [address] Today, you had a Coronary CT Angiogram. This procedure was done to look at the anatomy of your heart and the surrounding vessels. The images obtained are to help evaluate the presence of coronary heart disease. These instructions should be followed after your procedure to reduce the chance of experiencing complications. Please follow the instructions below to reduce the chance of experiencing complications. Activity: Rest for the remainder of the day. You may resume your normal activity tomorrow. Avoid alcoholic beverages for 24 hours after your procedure. Do not drive or operate heavy machinery for 24 hours after your procedure. Do not make any legal decisions for 24 hours after your procedure. Diet: Resume your normal diet as tolerated. Medication: Please resume home medications today as scheduled When to seek medical help: Arm, neck or jaw pain Angina (chest pain) or chest discomfort Shortness of breath Dizziness or lightheaded Hives or itching If you experience any of these issues during the first 24 hours, please follow the instruction below or go to the Emergency Department: First 24 hours [phone] After 24 hours, contact the physician who ordered this procedure for you. Obtaining test results: Please make an appointment with your doctor to obtain your test results. They are usually available within 4 to 5 business days. Do not assume everything is normal if you have not heard from your doctor or medical facility. It is important for you to follow up on all of your test results. Additional Information VACCINATE! IT SAVES LIVES! Members of the community who have not yet received the COVID-19 vaccine and would like to receive it can visit one of [facility] vaccine clinics. There are many vaccine clinic locations within the [facility]. For locations and available times, please visit [email or web address] It is important to note that some COVID mobile vaccine clinics are held outdoors and may be canceled in rainy or stormy conditions. To learn more about pediatric vaccinations (ages 5-11), we invite you to visit the [facility] webpage. [email or web address] To learn more about the COVID-19 vaccine, we invite you to visit the CDC website for a list of frequently asked questions.https://www.cdc.gov/doug navirus/2019-ncov/vaccines/faq.htm l [facility] Patient Portal Access Instructions: Stay connected with your healthcare team and access your personal medical information anytime with the [facility] Patient Portal. Please follow the directions below to create your [facility] account: 1.Access the email account you provided upon registration to the hospital/physician office.2.Look for an invitation email from [facility].3.Open the email and access the invitation link: Accept Invitation to [facility].4.Fill in the required gr to create your account. To access your account, visit [email or web address]. Click the blue button labeled Access Patient Portal and then log in with the username and password that you created in the steps above. You will be able to view your test results, lab results, a summary of your visits, upcoming appointments and more. There is also a convenient messaging option where you can send secure messages to your provider. In addition, you will have the ability to download any documents or summaries to your computer and/or send the information securely to a physician. Remember that your healthcare information is confidential, so carefully consider who you will allow to register on the [facility] Patient Portal for access to your information. You can also access the [facility] Patient Portal on the [facility] tabby. Simply click on Patient Portal and then log into your account. If you would like to receive a full copy of your medical records, please contact the [facility] Medical Records Department by calling [phone], Monday through Monday between 8 a.m. and 4:30 p.m. HOW TO SAFELY DISPOSE OF PRESCRIPTION MEDICATIONS Please use one of the following methods to safely dispose of your unused medications. 1.Use a drug disposal kit: the drug disposal pouch allows you to safely discard your old and unused drugs. Ask your nurse to give you one when you are discharged.2.Visit a local take-back location: Many local pharmacies and police departments have programs that collect old and unwanted prescription drugs. Call your local pharmacy or go to http://[employer].Kojami/5U1Lp6m to find one close to you.3.Make use of household items: Use cat litter or old coffee grounds to dispose medications if other options are not available. Mix your drugs with these household products, seal them in an airtight container and throw it into the garbage. Call [facility]: [phone] to be sure your drugs can be disposed of in this way. Some medicines may require a different approach.4.Never flush your medications down the toilet. IF YOU HAVE BEEN PRESCRIBED AN OPIOID FOR PAIN If you have been prescribed an opioid (such as hydrocodone, oxycodone or morphine), it is critical to understand the possible side effects and risks of opioid pain medications. Even when taken as directed, opioids can have several side effects including: Tolerance, meaning you might need to take more of a medication for the same pain relief. Nausea, vomiting and/or constipation. Sleepiness, dizziness, dry mouth, confusion, depression or itching. Physical dependence, meaning you have withdrawal symptoms when a medication is stopped, can develop within a few days. KNOW YOUR RESPONSIBILITIES It is important to know exactly how much and how often to take the opioid pain medications you are prescribed. Never take opioids in higher amounts or more often than prescribed. Do not combine opioids with alcohol or other drugs that cause drowsiness, such as benzodiazepines, also known as benzos, including diazepam and alprazolam, muscle relaxants or sleep aids. Never sell or share prescription opioids. This is illegal. Store opioids in a secure place and out of reach of others (including children, family, friends and visitors). The last page of this document has been signed and retained as a CHART COPY. Signatures Patient Education Materials Radiology- CT Coronary Angiogram (CUSTOM) Medication Leaflets My discharge plan and instructions have been reviewed and explained to me and ICARINA DANIELLE M understand my current condition and have read and understand these discharge instructions. I have received a written copy of the plan/instructions. If I have questions, I am aware that I should contact my doctor. 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 here for a Urogynecology appointment. No LMP recorded. Patient has had an injection. Patient given thorough instructions for collection of CCU. Pt states understanding. CCU collected. Urine Dip POCT done. See results. PVR per bladder scan: not done Reason for visit: states medication is helping incontinence. Denies any urinary symptoms and reports feels empty's bladder well. Urogynecology Follow-Up HPI Isidra Zaldivar is a 37 y.o. female, presents for follow up of Urinary incontinence and nocturia/enuresis. Interval history: Continues to take DDAVP at night for nocturia/enuresis in addition to oxybutynin SR 5 mg daily. Continues to do PFPT exercises. Denies incontinence or enuresis. Denies headache or issues with DDAVP. Has bowel movement every 2 days with colace. Urinary Incontinence: Yes Voiding Dysfunction: No Urinary Frequency: Yes Urinary Urgency: Yes Prolapse Symptoms: No Defecatory Dysfunction: No Fecal Incontinence: No Abnormal Bleeding: amenorrheic on Depo Pain: No Abnormal Vaginal Discharge: No Gynecological History: Paps: normal, last performed within the last 1-2 yrs. Mammograms: n/a Menstrual: amenorrheic on Depo. No LMP recorded. Patient has had an injection. Menopausal: No If yes, PMB: Physical Exam BP 137/58 Pulse 89 Wt 158 lb 12.8 oz (72 kg) BMI 24.87 kg/m Smoking Status Every Day Body mass index is 24.87 kg/m . Gen: well appearing, NAD, pleasant Chest: RRR, CTAB, non labored breathing : exam deferred Assessment: This is a 37 y.o. female with JOSE (urge predominant), constipation and enuresis currently managed with DDAVP and oxybutynin. Plan: JOSE, urge predominant: - currently taking oxybutynin CR 5 mg daily. Working very well and denies side effects, would like to continue - has active Rx, will reach out if needs refill Enuresis: None, doing well - Currently taking 0.2 mg DDAVP nighty, will continue current dose - Prior BMPs wnl, repeat ordered today Constipation: - Continue colace 100mg BID D/w and seen by Dr Quiros [facility] 6 months Margaret Parks MD PGY-5 Urogynecology & Reconstructive Pelvic Surgery Fellow Pager #: [phone] 28/11 Urogyn Fellow [employer] Pager [phone] === FPMRS Attending Note Attending Physician Note (GC) I interviewed and examined this patient with the fellow. I reviewed the history and exam detailed in the note. I agree with the medical decision making and have edited the note to reflect my findings, assessment, and plan as needed. Mike Quiros MD Division of Female Pelvic Medicine and Reconstructive Surgery documented in this encounter [facility] 07-19-2023 History of Present illness Narrative Patient identified by name and date of . Isidra Zaldivar is here for her HPV Gardasil vaccination, injection # three of the series. Patient ?No Gardasil injection was given without incident. See immunizations for details of immunizations administered today. VIS sheet provided: Yes Patient advised to follow up in Series completed Provider Goldie Kumar CNM was present in office at time of injection. Migdalia Cedillo RN Patient identified by name and date of . Isidra Zaldivar is here for a Depo Provera injection. Patient brought medication. Date last injected: 04/27/24 Depo-Provera, 150 mg, administered IM right upper quadrant gluteus, Lot # [id number], expiration date 01/2025. Depo-Provera was given without incident. Date of last menses: Patient's last menstrual period was 06/19/2022 (approximate). Medication verified by dispensing pharmacist Patient instructed to return to clinic on 12 weeks. [email or web address] Provider Goldie Kumar CNM was present in office at time of injection. Migdalia Cedillo RN documented in this encounter [facility] 07-19-2023 Instructions Migdalia Cedillo RN - 07/19/2023 3:37 PM EDT Gardasil Gardasil is a vaccine to protect against Human Papillomavirus (HPV) types 6, 11, 16, 18, 31,33,45, 52, 58. These viruses cause cancer and precancerous lesions on the cervix (opening between vagina and uterus), in the vagina and on the vulva (skin around the outside of the vagina) as well as genital warts. The vaccine cannot cause these diseases and cannot treat them if already present. Gardasil works best if given before contact with HPV. Most people are exposed to HPV soon after starting sexual activity. The vaccine is recommended between the ages of 9 and 45. Gardasil does not protect against all strains of HPV. Women who receive the vaccine still need to have regular pelvic exams and cervical cancer screening with the pap smear. You should ask your doctor if Gardasil is right for you if you have a weakened immune system, a bleeding disorder, plan to become soon or have a current illness causing fever. Gardasil is not recommended for women. You should be sure your doctor is aware of any allergies you have and all medications and herbal supplements you take. Gardasil is given to those ages 9-14 in 2 doses at 0 and 8 months. In ages 15-45, three injections are given at 0,2,6 months. Common side effects include pain, redness, itching and swelling at the injection site, nausea, fever, dizziness and fainting. Rare but potentially serious reactions have been reported. These include allergic reaction, swollen glands, joint and muscle pain, weakness and Guillain-[place] syndrome. documented in this encounter [facility] 07-13-2023 Procedure note [facility] 03-16-2023 Hospital Discharge instructions Patient Education 03/16/2023 00:15:57 Pleurisy Pleurisy You have pain in your chest. Your healthcare provider has told you that you have pleurisy, or pleuritis. Pleurisy is swelling (inflammation) of the pleura. The pleura are two layers of thin smooth tissue that surround the lungs and line the chest. What are the symptoms of pleurisy? Pleurisy is inflammation of the pleura. The pleura cover the lungs and line the chest. Pleurisy usually causes sharp chest pain. It is usually worse when you take a deep breath, cough, or sneeze. What causes pleurisy? Many things can cause pleurisy. A common cause is a viral infection like the flu or pneumonia. Serious lung problems that can cause it include: A blood clot in the lung (pulmonary embolism) Air between the pleura (pneumothorax) Serious heart problems that can cause pleurisy include: Heart attack Inflammation of the covering of the heart (pericarditis) How is pleurisy diagnosed? Your healthcare provider examines you and asks you about your symptoms and health history. He or she will first check you for the serious causes of chest pain. You may have: Lab tests Imaging tests such as chest X-ray, CT scan, or ultrasound ECG How is pleurisy treated? Treatment depends on what is causing the pleurisy. Serious conditions are treated in the hospital. You may need medicines to decrease the inflammation and pain. Call 911 Call 911 if any of these occur: Trouble breathing Chest pain that gets worse Call your healthcare provider Call your healthcare provider right away if you have: A fever of 100.4 F (38 C) or higher, or as directed by your healthcare provider [phone] [employer]. [address] [place] [address], [place] [address]. All rights reserved. This information is not intended as a substitute for professional medical care. Always follow your healthcare professional's instructions. Follow Up Care 03/15/2023 22:37:00 With:OLMAN SON DO Address: [address] [place] [phone] When:2-4 days Comments:Make an appointment in 2 to 4 days with your physician. Return if you are worse in any way. [facility] 03-16-2023 Note Discharge Instructions Thank you for allowing [facility] to assist you with your healthcare needs. The following is important discharge information regarding your hospital visit. Diagnosis from Today's Visit Chest pain - Pleuritic Pleurisy What to Do Next Instructions from Your Care Team Medications as directed. Your creatinine, a blood test for your kidney, is slightly elevated. Your physician should recheck that. Follow-up with your physician as scheduled tomorrow. Return if worse anyway. No qualifying data available. Post Acute Orders No qualifying data available. You Need to Schedule the Following Appointments Follow Up with OLMAN SON DO When Within 2-4 days Why: Make an appointment in 2 to 4 days with your physician. Return if you are worse in any way. Where: [address] [place] [phone] Allergies ZyrTEC promethazine (Eruption) Flovent HFA (Swelling, Palpitations) Phenergan (Hives) seasonal enviromental (stuffy nose, sneezing) Medications Please ask your primary doctor or pharmacist before taking any other medication not listed, including over the counter drugs, herbal medications, vitamins and or supplements as they may interact with your home medications. What How Much When Why Instructions Last Dose New naproxen (naproxen 500 mg oral tablet) 1 tab(s) by mouth Two (2) times a day Duration: 5 Days Printed Prescription Unchanged albuterol (Ventolin HFA MDI (90 mcg/ inh) inhalation aerosol) 2 puff(s) by inhalation Every 4 hours as needed for Shortness of breath or wheezing Duration: 30 Days use with spacer chamber. Okay to substitute alternative brand if needed for insurance. Unchanged busPIRone (busPIRone 5 mg oral tablet) TAKE 1 TABLET BY MOUTH TWICE DAILY NEEDED FOR ANXIETY Unchanged chlorproMAZINE (chlorproMAZINE 25 mg oral tablet) TAKE 1 TABLET BY MOUTH EVERY DAY Unchanged cholecalciferol (Vitamin D3 50 mcg (2000 intl units) oral tablet) 1 tab(s) by mouth Every day Duration: 90 Days with food Unchanged ciclopirox topical (ciclopirox 8% topical solution) 1 application Topical Every day Duration: 48 week(s) apply to affected toenails and surrounding area once daily, remove with alcohol every 7 days prior to reapplication Unchanged desmopressin (desmopressin 0.2 mg oral tablet) Take 1 tablet by mouth daily. Unchanged DME (DME MISCellaneous) See instructions Carpal tunnel syndrome on left Comfort form wrist splint right size small, Dx: G56.02 Unchanged docusate (DOK 100 mg oral capsule) 1 cap by mouth Two (2) times a day Unchanged fluticasone nasal (Flonase 50 mcg/ inh nasal spray) 2 spray(s) each nostril Once a day (in the morning) as needed for Nasal congestion Allergic rhinitis Duration: 30 Days in each nostril Unchanged folic acid (folic acid 1 mg oral tablet) 1 tab(s) by mouth Once a day Duration: 90 Days Unchanged lamoTRIgine (lamoTRIgine 150 mg oral tablet) TAKE 1 TABLET BY MOUTH TWICE DAILY Unchanged levothyroxine (levothyroxine 75 mcg (0.075 mg) oral tablet) TAKE 1 TABLET BY MOUTH DAILY Unchanged medroxyPROGESTERone (medroxyPROGESTERone 150 mg/ mL intramuscular suspension) INJECT 1ML INTRAMUSCULARLY EVERY 11 WEEKS Unchanged oxybutynin (oxybutynin 10 mg/ 24 hr oral tablet, extended release) 1 tab(s) by mouth Once a day Unchanged prazosin (prazosin 1 mg oral capsule) TAKE 3 CAPSULES BY MOUTH AT BEDTIME Unchanged topiramate (topiramate 25 mg oral tablet) TAKE 1 TABLET BY MOUTH EVERY NIGHT AT BEDTIME Unchanged traMADol (traMADol 50 mg oral tablet) 50 Milligram by mouth Every 6 hours as needed for Pain Dental caries Duration: 3 Days Dx: K088 Please take this list to your next doctor s visit. Bring all medications you take, including over the counter medications, herbals and other supplements with you to your doctor s visit. Patients and families are reminded to discard old lists and to update any records with all medication providers or retail pharmacies. Education Materials Pleurisy You have pain in your chest. Your healthcare provider has told you that you have pleurisy, or pleuritis. Pleurisy is swelling (inflammation) of the pleura. The pleura are two layers of thin smooth tissue that surround the lungs and line the chest. What are the symptoms of pleurisy? Pleurisy is inflammation of the pleura. The pleura cover the lungs and line the chest. Pleurisy usually causes sharp chest pain. It is usually worse when you take a deep breath, cough, or sneeze. What causes pleurisy? Many things can cause pleurisy. A common cause is a viral infection like the flu or pneumonia. Serious lung problems that can cause it include: A blood clot in the lung (pulmonary embolism) Air between the pleura (pneumothorax) Serious heart problems that can cause pleurisy include: Heart attack Inflammation of the covering of the heart (pericarditis) How is pleurisy diagnosed? Your healthcare provider examines you and asks you about your symptoms and health history. He or she will first check you for the serious causes of chest pain. You may have: Lab tests Imaging tests such as chest X-ray, CT scan, or ultrasound ECG How is pleurisy treated? Treatment depends on what is causing the pleurisy. Serious conditions are treated in the hospital. You may need medicines to decrease the inflammation and pain. Call 911 Call 911 if any of these occur: Trouble breathing Chest pain that gets worse Call your healthcare provider Call your healthcare provider right away if you have: A fever of 100.4 F (38 C) or higher, or as directed by your healthcare provider [phone] [employer]. [address] [place] [address], [place] [address]. All rights reserved. This information is not intended as a substitute for professional medical care. Always follow your healthcare professional's instructions. Additional Information VACCINATE! IT SAVES LIVES! Members of the community who have not yet received the COVID-19 vaccine and would like to receive it can visit one of [facility] vaccine clinics. There are many vaccine clinic locations within the [facility]. For locations and available times, please visit [email or web address].[place].go [email or web address] It is important to note that some COVID mobile vaccine clinics are held outdoors and may be canceled in rainy or stormy conditions. To learn more about pediatric vaccinations (ages 5-11), we invite you to visit the [facility] webpage. [email or web address]/pag [email or web address]-Wlmhjziyzcd-[email or web address] vk-Eytps-Lgqzjiaun.html To learn more about the COVID-19 vaccine, we invite you to visit the CDC website for a list of frequently asked questions. https://www.cdc.gov/coronavirus/20 19-ncov/vaccines/faq.html [facility] Patient Portal Access Instructions: Stay connected with your healthcare team and access your personal medical information anytime with the [facility] Patient Portal. If you would like a full copy of your medical records please contact the [facility] Medical Records Department Monday through Monday between 8a.m. and 4:30p.m. Please follow the directions below to access the portal: 1.Access the email account you provided upon registration to the hospital.2.Look for an invitation email from [facility].3.Open the email and access the invitation link: [facility] to [facility].Fill in the required gr to create your account. Sign into [email or web address] with your username and password that you created in the above steps to stay up to date. You can then view a summary of results, a summary of your visits, and the ability to download your summaries to your computer or send the information securely to a physician. Remember that your healthcare information is confidential, so carefully consider who you will allow to register on the [facility] Patient Portal for access to your information. You can also access the [facility] Patient Portal on the [employer] tabby. Simply click on Health Records under Health Data and then click on the [id number] logo. HOW TO SAFELY DISPOSE OF PRESCRIPTION MEDICATIONS Please use one of the following methods to safely dispose of your unused medications. 1.Use a drug disposal kit: the drug disposal pouch allows you to safely discard your old and unused drugs. Ask your nurse to give you one when you are discharged.2.Visit a local take-back location: Many local pharmacies and police departments have programs that collect old and unwanted prescription drugs. Call your local pharmacy or go to http://[employer].Kojami/6F5Gq7w to find one close to you.3.Make use of household items: Use cat litter or old coffee grounds to dispose medications if other options are not available. Mix your drugs with these household products, seal them in an airtight container and throw it into the garbage. Call [facility]: [phone] to be sure your drugs can be disposed of in this way. Some medicines may require a different approach.4.Never flush your medications down the toilet. IF YOU HAVE BEEN PRESCRIBED AN OPIOIDS FOR PAIN If you have been prescribed an opioid (such as hydrocodone, oxycodone or morphine), it is critical to understand the possible side effects and risks of opioid pain medications. Even when taken as directed, opioids can have several side effects including: Tolerance, meaning you might need to take more of a medication for the same pain relief. Nausea, vomiting and/or constipation. Sleepiness, dizziness, dry mouth, confusion, depression or itching. Physical dependence, meaning you have withdrawal symptoms when a medication is stopped ? this can develop within a few days. KNOW YOUR RESPONSIBILITIES It is important to know exactly how much and how often to take the opioid pain medications you are prescribed. Never take opioids in higher amounts or more often than prescribed. Do not combine opioids with alcohol or other drugs that cause drowsiness, such as benzodiazepines, also known as benzos, including diazepam and alprazolam, muscle relaxants or sleep aids. Never sell or share prescription opioids. This is illegal. Store opioids in a secure place and out of reach of others (including children, family, friends and visitors). The last page(s) of this document has been signed and retained as a CHART COPY Signatures Patient Education Materials Pleurisy Medication Leaflets My discharge plan and instructions have been reviewed and explained to me and I,JUAN ZALDIVARBISI Anderson understand my current condition and have read and understand these discharge instructions. I have received a written copy of the plan/instructions. If I have questions, I am aware that I should contact my doctor. 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 The lungs are hyperinflated. There is no pulmonary consolidation. No pneumothorax or pleural effusion. No aggressive osseous lesions identified. IMPRESSION: Mild hyperinflation. No focal consolidation Interpreted by: Kenneth Rodriguez MD Preliminary Report By: Kenneth Rodriguez MD Electronically signed By Kenneth Rodriguez MD Dictated Date: 03/15/2023 1:38:25 PM Prelim Date: 03/15/2023 1:38:59 PM Sign Date: 03/15/2023 1:38:59 PM Ordering Provider: OLMAN SON [facility] 02-22-2023 History of Present illness Narrative Isidrabisi Anton Carina is a 37 y.o. here for a Urogynecology appointment. No LMP recorded. Patient has had an injection. Patient given thorough instructions for collection of CCU. Pt states understanding. CCU collected. Urine Dip POCT done- please see results tab PVR per bladder scan: 22 ml Reason for visit: - here for follow up regarding medication- states medicine is helpful - states pap test done in December of this year at [facility] is positive for HPV- taking Gardasil shots now Urogynecology Follow-Up HPI Isidra Zaldivar is a 37 y.o. female, presents for follow up of Urinary incontinence and nocturia/enuresis. Interval history: Continues to take DDAVP at night for nocturia/enuresis in addition to oxybutynin SR 5 mg daily. Continues to do PFPT exercises. Denies incontinence or enuresis. Denies headache or issues with DDAVP. Continues to work with PCP regarding weight loss. Has been told she may have issues with malabsorption versus gallbladder issues. Denies UTIs since last appointment. Urinary Incontinence: Yes Voiding Dysfunction: No Urinary Frequency: Yes Urinary Urgency: Yes Prolapse Symptoms: No Defecatory Dysfunction: No Fecal Incontinence: No Abnormal Bleeding: amenorrheic on Depo last dose 06/2020 Pain: No Abnormal Vaginal Discharge: No Gynecological History: Paps: normal, last performed within the last 1-2 yrs. Mammograms: n/a Menstrual: amenorrheic on Depo. No LMP recorded. Patient has had an injection. Menopausal: No If yes, PMB: Physical Exam BP 114/57 Pulse 70 Resp 16 Ht 5' 7 (1.702 m) Wt 157 lb (71.2 kg) BMI 24.59 kg/m Smoking Status Every Day Body mass index is 24.59 kg/m . Gen: well appearing, NAD, pleasant Chest: RRR, CTAB, non labored breathing : exam deferred Assessment: This is a 37 y.o. female with JOSE (urge predominant), constipation and enuresis currently managed with DDAVP and oxybutynin. Plan: JOSE, urge predominant: - currently taking oxybutynin CR 5 mg daily. Working very well and denies side effects, would like to continue - has new prescription, valid for 1 year Enuresis: None, doing well - Currently taking 0.2 mg DDAVP nighty, will continue current dose - Prior BMPs wnl, repeat ordered today Constipation: Improved - Continue colace 100mg BID D/w and seen by Dr Quiros RT in 6 months Margaret Parks MD PGY-5 Urogynecology & Reconstructive Pelvic Surgery Fellow Pager #: [phone] 28/11 Urogyn Fellow [employer] Pager [phone] === FPMRS Attending Note Attending Physician Note (GC) I interviewed and examined this patient with the fellow. I reviewed the history and exam detailed in the note. I agree with the medical decision making and have edited the note to reflect my findings, assessment, and plan as needed. Mike Quiros MD Division of Female Pelvic Medicine and Reconstructive Surgery Venipuncture performed successfully documented in this encounter [facility] 12-29-2022 History and physi tanvi note Note Date/Time December 29, 2022 8:45am [facility] Medical Records Department [address] [place] [address] History & Physical Exam 12/29/22 0844 MR#: [id number] Acct: [id number] Name: ISIDRA ZALDIVAR Rep #:[id number] : 1985 37 From: Shimon Bullock PCP: Dr. Olman Son DO Status:[facility] Location: [place] [address] History and Physical Date of Admission: 12/29/22 Date of Service: 10/05/22 MR#: [id number] Acct: [id number] Name: ISIDRA ZALDIVAR Rep #: [id number] : 1985 Provider: Dr. 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 Required: No Is patient in pain?: No Allergies promethazine [From Phenergan] Allergy (Verified 10/05/22 08:47) Vomiting Medications buspirone 5 mg tablet 5 mg PO ONCE PRN 01/17/22 [History Confirmed 10/05/22] desmopressin 0.2 mg tablet (DDAVP) 0.2 mg PO ONCE 01/17/22 [History Confirmed 10/05/22] docusate sodium 100 mg capsule 100 mg PO BID 01/17/22 [History Confirmed 10/05/22] lamotrigine 150 mg tablet 150 mg PO BID 01/17/22 [History Confirmed 10/05/22] oxybutynin chloride 5 mg tablet,extended release 24 hr 5 mg PO DAILY 01/17/22 [History Confirmed 10/05/22] albuterol sulfate 90 mcg/actuation aerosol inhaler 2 puff inhalation Q6H PRN 02/16/22 [History Confirmed 10/05/22] lorazepam 1 mg tablet 1 mg PO DAILY PRN 02/16/22 [History Confirmed 10/05/22] pediatric multivitamin no.7-folic acid 100 mcg chewable tablet (Flintstones Multi-Vitamins Gummies) tab PO 04/12/22 [History Confirmed 10/05/22] levothyroxine 75 mcg tablet 75 mcg PO DAILY #30 tabs 09/05/22 [Rx Confirmed 10/05/22] [facility] Medical History (Updated 10/05/22 @ 18:[address] Shimon Sterling MD) Abnormal weight loss Anxiety Depression Epilepsy Folate deficiency Lois's thyroiditis Iron deficiency Left anterior knee pain Narcotic addiction Schizophrenia Seasonal allergies Seizure disorder Thyroid enlargement Weight loss Surgical History H/O knee surgery Family History Mother COPD (chronic obstructive pulmonary disease) Social History household members: spouse and children number of children: 1 Smoking Status: Current every day smoker tobacco type: cigarettes Tobacco: How many years used: 20 second hand exposure: Yes alcohol intake: former details: recovering alcoholic substance use type: former substance user seatbelt use: never HPI HPI HPI: Patient is a 36-year-old female who presents for abdominal pain and weight loss with ultrasound of the right upper quadrant showing cholelithiasis. They are referred for surgical consultation from Dr. Hernandez of gastroenterology. Patientpresents today with her son and . They relate that she has lost approximately 100 pounds since 2019. They state this was time which there son was born. Patient's noticed that this is similar to an 85 pound weight loss she experienced during the course of her . She states to that shehas tried several medications for her gallbladder, but reports a allergic reaction to 1 of these medications and no relief of symptoms. She denies any pain with this weight loss. She states that after eating it feels like her stomach gets very tight. She notes this occurs immediately with eating. She denies any associated nausea, but does have some bloating and burping. She states this is affected her appetite and that she finds only Ramen noodles to the helpful. She denies any awareness of food allergies. She states that her activity level has remained relatively the same. Patient reports that her bowel movement frequency has significantly decreased. Whereas previously she was experiencing bowel movement every day she has now experiencing 1 every 3 to 4 days. She notes that sometimes she must strain to have a stool and sometimes this can mean a toilet time of over an hour. Intermittent with this constipation she does experience some diarrhea. She has not noticed any bleeding. She confirms that she is using a docusate stool softener. She denies any use of fiber, but does report drinking lots of water. Patient has no history of prior upper or lower endoscopy. Patient is not clear on her family history as her relatives have not been very forthcoming with some other diagnoses, but she is not aware of any inflammatory bowel disease diagnoses or colon cancer diagnoses. Previous work-up has included: Right upper quadrant ultrasound 08/03/2022 which showed evidence of cholelithiasis without further evidence of cholecystitis. Additionally, patient underwent normal gastric emptying study on July 25, 2022. Prior to this she underwent stool studies with normal ova and parasites exam 04/23/2022. She denies any history of acid reflux or heartburn. She denies anypersonal history of peptic ulcers. Patient's reports that with her prior weight loss she was found to have a number of active electrolyte abnormalities including hypercalcemia and once this was corrected she began regaining weight. Patient has present tobacco use, but is a recovered drug user. ROS General General: Yes weight change and fatigue; No appetite, colon cancer, breast cancer or weakness Additional Details: Weight loss HEENT HEENT: No difficulty swallowing, eye injury, eye surgery, swollen glands or hoarseness Endo Endocrine: Yes thyroid disease; No diabetes mellitus, thyroid cancer, Hair loss, heat intolerance or cold intolerance Skin Skin: Yes changing moles; No rash Breast Breast: No left breast lump, right breast lump, nipple discharge, breast pain, abnormal mammogram, abnormal US or breast enlargement Musc Musculoskeletal: Yes arthritis; No back problems, rheumatoid arthritis, gout or joint pain Cardio Cardiovascular: No murmur, pacemaker, heart disease, atrial fibrillation, high blood pressure, heart attack, heart stent, palpitations, shortness of breat withexertion or chest pain Psych Psychiatric: Yes depression and anxiety; No hearing voices Resp Respiratory: No shortness of breath, Yes sleep apnea, No cough, No COPD, Yes asthma, No emphysema and No wheezing Gastro Gastrointestinal: No abdominal pain, No nausea or vomiting, No diarrhea, No constipation, No blood in stool, Yes acid reflux, Yes hemorrhoids, No ulcers, Yes gallbladder problem and No black,tarry stools Meir Hematologic: No blood thinners, No blood disorders, No bleeding, No anemia and No blood clots Neuro Neurologic: No system reviewed and no additional complaints, except as documented, No as per HPI, No abnormal gait, No abnormal hearing, No abnormal movements, No abnormal speech, No behavioral changes, No burning sensations, No confusion, No convulsions, No disequilibrium, No dizziness, No localized weakness, No frequent falls, No headache(s), No lack of coordination, No loss ofvision, No memory loss, No numbness, No other visual disturbances, No radicular pain, No restless legs, No sensory deficit, No syncope, No tingling, No tremor(s), No weakness and No other Exam Const General: cooperative, anxious and frail appearing Orientation: alert, awake and oriented x3 Resp Effort & Inspection: normal respiratory effort GI Other: No significant abdominal striae, nondistended, soft, nontender to palpation x4 quadrants Assessment and Plan Assessment and Plan (1) Weight loss: Status: Acute Comment: Patient with marked (approximately 100 pounds) weight loss in the last 4 years. No discernible cause as of yet despite work-up initiated by gastroenterology. Patient denies pain as the cause of her decreased appetite. She complains more of a bloating sensation and tightness of her stomach. This is not suggestive to me of gallbladder etiology and her exam is further unconvincing. Her gastricemptying study performed in July was normal, but she has not yet undergone upper endoscopy for evaluation. I believe this is warranted to rule out possible H. pylori or ulcer disease. Plan: EGD under local MAC (2) Constipation: Status: Acute Comment: Patient describing recent constipation with previous normal bowel function. Sheis also describing abnormal toilet time in excess of an hour. With these changes and patient's weight loss noted above, recommend proceeding with colonoscopy. Given her constipation, I recommended a 2-day prep in anticipationof this procedure. Plan: Diagnostic colonoscopy alongside of EGD as discussed above (3) Bloating: Status: Acute Comment: Patient describes this and tightness of her stomach immediately after eating. This is suggestive of possible gastric pathology. EGD recommended as above (4) Gallstones: Status: Chronic Comment: Patient with cholelithiasis per right upper quadrant ultrasound from July. This is unsurprising given her history of a much higher body weight and significant weight loss. However, I am unable to link her history to a problem with her gallbladder and her exam is also unconcerning. At this time I do not feel there is enough suspicion to warrant either cholecystectomy or further evaluation of the gallbladder. Should something in her work-up suggest otherwise, we could revisit the possibility of obtaining a HIDA scan. I have examined the patient the following changes are noted: Patient reports that she did have a tooth extraction due to a broken tooth but is now recovered. She also reports probably that she has gained 5 pounds. Otherwise her symptomsin her health history remain the same. Plan to proceed to the endoscopy suite for EGD and colonoscopy given the presentation above. 12/29/2245 <Electronically signed by Shimon Sterling MD> Cosigner Signature (if applicable): CC: Dr. Olman Sno DO; Dr. Shimon Sterling MD~ Signed [facility] Work Phone: [phone]) 654-883008-24-2023 Procedure [facility] 12-29-2022 Procedure [facility]08-24-2023 Procedure note [facility]08-24-2023 Procedure [facility] 12-27-2022 Instructions* Patient Instructions* Trang Mcclain APRN.DEVELOPMENT TECHNICIAN - 12/27/2022 4:29 PM EDT Gardasil Gardasil is a vaccine to protect against Human Papillomavirus (HPV) types 6, 11, 16, 18, 31,33,45, 52, 58. These viruses cause cancer and precancerous lesions on the cervix (opening between vagina and uterus), in the vagina and on the vulva (skin around the outside of the vagina) as well as genitalwarts. The vaccine cannot cause these diseases and cannot treat them if already present. Gardasil works best if given before contact with HPV. Most people are exposed to HPV soon after starting sexual activity. The vaccine is recommended between the ages of 9 and 45. Gardasil does not protect against all strains of HPV. Women who receive the vaccine still need to have regular pelvic exams and cervical cancer screening with the pap smear. You should ask your doctor if Gardasil is right for you if you have a weakened immune system, a bleeding disorder, plan to become soon or have a current illness causing fever. Gardasil is not recommended for women. You should be sure your doctor is aware of any allergies you have and all medications and herbal supplements you take. Gardasil is given to those ages 9-14 in 2 doses at 0 and 8 months. In ages 15- 45, three injections are given at 0,2,6 months. Common side effects include pain, redness, itching and swelling at the injection site, nausea, fever, dizziness and fainting. Rare but potentially serious reactions have been reported. These include allergic reaction, swollen glands, joint and muscle pain, weakness and Guillain-[place] syndrome. [facility] History of Present illness Narrative* Trang Mcclain APRN.CNP - 12/27/2022 3:43 PM EDT Chip Drier offered: Patient declines. Isidra is a 37 year old who presents for an annual gynecologic exam without complaints. Menses: No Menses - Depo Provera. Contraception: Depo Provera every 10 weeks HPV vaccine: unsure Last Pap: 12/2021 normal, HRHPV positive [place] benign Abnormal Pap: 04/22/2019 abnormal ASCUS HPV +, Leep Procedure 05/13/2019 high grade squamous intraepithelial lesion 05/22/19 - Endocervix, LEEP benign Last mammogram: never Sexually active: Yes History of STDS: GC and HPV Patient concerns for STD exposure: No. Last sexual contact: 2018 Time with current partner: 6 years Documentation from previous visit of 12/08/2021 was copied and pasted, documentation has been reviewed and edited as necessary for today's visit. 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: Sexual Activity: Yes; Male Contraception: Injection PAST MEDICAL HISTORY Diagnosis Date ASCUS with positive high risk HPV cervical 04/2019 Learning disability OAB (overactive bladder) [facility] Schizo affective schizophrenia (HCC) PAST SURGICAL HISTORY Procedure Laterality Date CERVIX UTERI CONIZA LP ELCTRO EXCI 2019 LEEP pathology benign EYE SURGERY HX PAST SURGICAL HISTORY OF Bilateral bilateral knee surgery FAMILY HISTORY Problem Relation Age of Onset Heart disease Mother other (respiratory) Mother Lung Cancer Father smoker Asthma Sister No Known Problems Sister No Known Problems Brother Lung Cancer Maternal Grandmother smoke Heart disease Maternal Grandmother SOCIAL HISTORY Social History Tobacco Use Smoking status: Every Day Packs/day: 1.00 Years: 20.00 Additional pack years: 0.00 Total pack years: 20.00 Types: Cigarettes Smokeless tobacco: Never Vaping Use Vaping Use: Never used Substance Use Topics Alcohol use: Never Drug use: Never Comment: 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 No bloating, early satiety, indigestion, or increased flatulence.Scheduled for upper and lower scopes. Bladder: No dysuria, gross hematuria, urinary frequency, urinary urgency, or incontinence.. Long-term intermittent incontinence and sensation of incomplete bladder emptying - DDAVP at bedtime, oxybutynin in the mornings per [facility] urology Breast: No breast lumps, nipple d/c, overlying skin changes, redness or skin retraction. Allergies and current medication updated:Yes EXAM: BP 104/62 Ht 5' 7 (1.70m) Wt 155 lb (70.3kg) LMP 06/19/2022 BMI 24.27 kg/(m^2). GENERAL: pleasant, female in no apparent distress HEENT: Normocephalic, atraumatic, mucus membranes moist, and no lesions NECK: Supple, full range of motion, no adenopathy, and thyroid normal DERMATOLOGY: Normal, without lesions, non-icteric, and non-hirsute BREAST: soft, non-tender, symmetric, no dominant mass, normal nipple-areolar complex, no lymphadenopathy, and no nipple discharge CHEST: Normal inspiratory effort ABDOMEN: soft, non-tender, and no masses PELVIC: external genitalia normal, normal Bartholin's glands, urethra, Punaluu's glands, no vulvar lesions, no cervical lesions, good vaginal support, physiologic discharge present, normal appearing perineal body and perianal region BIMANUAL: uterus normal size, shape and consistency, no adnexal masses, and non-tender RECTOVAGINAL: deferred. NEURO: alert and oriented x3,exam grossly non-focal EXTREMITIES: normal ASSESSMENT/PLAN: 1) Health maintenance: Pap done with HPV. Mammogram starting age 40. Nutrition, exercise and routine health maintenance exams reviewed. Smoking cessation: Benefits of smoking cessation reviewed. Patient encouraged to avoid smoking. HPV vaccine: first in series today 2) Contraception: Depo Provera. Contraceptive options reviewed and information provided. 3) STD screening: Declined STD check. 4) Follow up one year or sooner as needed Trang Mcclain APRN.AUGUSTINE Patient identified by name and date of . [facility] Hospital Discharge instructions Patient Education 12/01/2022 09:46:07 Dental Pain Dental Pain A crack or cavity in a tooth can cause tooth pain. This is because the crack or cavity exposes the sensitive inner area of the tooth. An infection in the gum or the root of the tooth can cause pain and swelling. The pain is often made worse when you drink hot or cold beverages. It can also be worsewhen you bite on hard foods. Pain may spread from the tooth to your ear or the area of the jaw on the same side. Home care Follow these tips when caring for yourself at home: Don't have hot and cold foods and drinks. Your tooth may be sensitive to changes in temperature. Use toothpaste made for sensitive teeth. [place] gently up and down instead of sideways. Brushing sideways can wear away root surfaces if they are exposed. If your tooth is chipped or cracked, or if there is a large open cavity, put oil of cloves directlyon the tooth to relieve pain. You can buy oil of cloves at [employer]. Some pharmacies carry an lxnq-mck-csbjsbl toothache kit. This contains a paste that you can put on the exposed tooth to make it less sensitive. Put a cold pack on your jaw over the sore area to help reduce pain. You may use ehsy-xjn-pziwopy medicine to ease pain, unless your doctor prescribed another medicine.If you have chronic liver or kidney disease, talk with your healthcare provider before using acetaminophen or ibuprofen. Also talk with your provider if you ve had a stomach ulcer or GI bleeding. If you have signs of an infection, you will be given an antibiotic. Take it as directed. Follow-up care Follow up with your dentist, or as advised. Your pain may go away with the treatment given today. But only a dentist can fully look at and treat the cause of your pain. This will keep the pain from coming back. Call 911 Call 911 if any of these occur: Unusual drowsiness Headache or stiff neck Weakness or fainting Difficulty swallowing or breathing When to seek medical advice Call your health care provider right away if any of these occur: Your face becomes swollen or red Pain gets worse or spreads to your neck Fever of 100.4 F (38.0 C) or higher, or as directed by your healthcare provider Pus drains from the tooth [phone] [employer]. [address] [place] [address]. All rights reserved. This information is not intended as a substitute for professional medical care. Always follow yourhealthcare professional's instructions. 12/01/2022 09:46:01 Dental Pain Dental Pain A crack or cavity in a tooth can cause tooth pain. This is because the crack or cavity exposes the sensitive inner area of the tooth. An infection in the gum or the root of the tooth can cause pain and swelling. The pain is often made worse when you drink hot or cold beverages. It can also be worsewhen you bite on hard foods. Pain may spread from the tooth to your ear or the area of the jaw on the same side. Home care Follow these tips when caring for yourself at home: Don't have hot and cold foods and drinks. Your tooth may be sensitive to changes in temperature. Use toothpaste made for sensitive teeth. [place] gently up and down instead of sideways. Brushing sideways can wear away root surfaces if they are exposed. If your tooth is chipped or cracked, or if there is a large open cavity, put oil of cloves directlyon the tooth to relieve pain. You can buy oil of cloves at drugstores. Some pharmacies carry an nxdy-dnd-fguskpu toothache kit. This contains a paste that you can put on the exposed tooth to make it less sensitive. Put a cold pack on your jaw over the sore area to help reduce pain. You may use joyv-ncr-luedclo medicine to ease pain, unless your doctor prescribed another medicine.If you have chronic liver or kidney disease, talk with your healthcare provider before using acetaminophen or ibuprofen. Also talk with your provider if you ve had a stomach ulcer or GI bleeding. If you have signs of an infection, you will be given an antibiotic. Take it as directed. Follow-up care Follow up with your dentist, or as advised. Your pain may go away with the treatment given today. But only a dentist can fully look at and treat the cause of your pain. This will keep the pain from coming back. Call 911 Call 911 if any of these occur: Unusual drowsiness Headache or stiff neck Weakness or fainting Difficulty swallowing or breathing When to seek medical advice Call your health care provider right away if any of these occur: Your face becomes swollen or red Pain gets worse or spreads to your neck Fever of 100.4 F (38.0 C) or higher, or as directed by your healthcare provider Pus drains from the tooth [phone] [employer]. [address] [place] [address]. All rights reserved. This information is not intended as a substitute for professional medical care. Always follow yourhealthcare professional's instructions. 12/01/2022 09:45:59 Dental Cavity Dental Cavity A dental cavity is a pit or crater in the surface of a tooth. This exposes the sensitive inner layer of the tooth and causes pain. If the cavity isn t treated, it will get bigger. It may enter the pulp and cause an infection or abscess in the bone at the root end (apex) of the tooth. An infection in the tooth is a much more serious problem than a cavity. If the tooth gets infected, you will need a root canal or the entire tooth taken out (extraction). The pain in your tooth may be made worse by eating sweets or drinking hot or cold beverages. It mayspread from the tooth to your ear or the area of your jaw on the same side. Home care Follow these tips when caring for yourself at home: Don't have sweets and hot and cold foods and drinks. Your tooth may be sensitive to changes in temperature. If your tooth is chipped or cracked, or if there is a large open cavity, put oil of cloves directlyon the tooth to relieve pain. You can buy oil of cloves at drugstores. Some pharmacies carry an rxvm-bru-vczuvsj toothache kit. This contains a paste that you can put on the exposed tooth to make it less sensitive. Put a cold pack on your jaw over the sore area to help reduce pain. You may use zzyp-zya-eidtfuv medicine to ease pain, unless another medicine was prescribed. If you have chronic liver or kidney disease, talk with your healthcare provider before using acetaminophen or ibuprofen. Also talk with your provider if you ve had a stomach ulcer or GI bleeding. If you have signs of an infection, you will be given an antibiotic. Take it as directed. Follow-up care Follow up with your dentist, or as advised. Your pain may go away with the treatment given today. But only a dentist can fully look at and treat this problem to prevent further tooth damage. Call 911 Call 911 if any of these occur: Difficulty swallowing or breathing Weakness or fainting Unusual drowsiness Headache or stiff neck When to seek medical advice Call your healthcare provider right away if any of these occur: Redness or swelling of the face Pain gets worse or spreads to your neck Fever of 100.4 F (38 C) or higher, or as directed by your healthcare provider Pus drains from the tooth or gum [phone] [employer]. [address] [place] [address]. All rights reserved. This information is not intended as a substitute for professional medical care. Always follow yourhealthcare professional's instructions. Follow Up Care 12/01/2022 09:25:48 With:OLMAN SON DO Address: [address] [place] [phone] When:2-4 days [facility] Note Discharge Instructions Thank you for allowing [facility] to assist you with your healthcare needs. The following is importantdischarge information regarding your hospital visit. Diagnosis from Today's Visit Abscess - simple Dental caries What to Do Next Instructions from Your Care Team No qualifying data available. Post Acute Orders No qualifying data available. You Need to Schedule the Following Appointments Follow Up with OLMAN SON DO When Within 2-4 days Where: [address] [place] [phone] Allergies ZyrTEC promethazine (Eruption) Flovent HFA (Swelling, Palpitations) Phenergan (Hives) seasonal enviromental (stuffy nose, sneezing) Medications Please ask your primary doctor or pharmacist before taking any other medication not listed, including over the counter drugs, herbal medications, vitamins and or supplements as they may interact withyour home medications. What How Much When Why Instructions Last Dose New amoxicillin (amoxicillin 500 mg oral capsule) 1 cap by mouth Three (3) times a day Duration: 10 Days Printed Prescription New traMADol (traMADol 50 mg oral tablet) 50 Milligram by mouth Every 6 hours as needed for Pain Dental caries Duration: 3 Days Dx: K088 Printed Prescription Unchanged albuterol (Ventolin HFA MDI (90 mcg/ inh) inhalation aerosol) 2 puff(s) by inhalation Every 4 hours as needed for Shortness of breath or wheezing Duration: 30 Days use with spacer chamber. Okay to substitute alternative brand if needed for insurance. Unchanged busPIRone (busPIRone 5 mg oral tablet) TAKE 1 TABLET BY MOUTH TWICE DAILY NEEDED FOR ANXIETY Unchanged chlorproMAZINE (chlorproMAZINE 25 mg oral tablet) TAKE 1 TABLET BY MOUTH EVERY DAY Unchanged cholecalciferol (Vitamin D3 50 mcg (2000 intl units) oral tablet) 1 tab(s) by mouth Every day Duration: 90 Days with food Unchanged desmopressin (desmopressin 0.2 mg oral tablet) Take 1 tablet by mouth daily. Unchanged DME (DME MISCellaneous) See instructions Carpal tunnel syndrome on left Comfort form wrist splint right size small, Dx: G56.02 Unchanged docusate (DOK 100 mg oral capsule) 1 cap by mouth Two (2) times a day Unchanged fluticasone nasal (Flonase 50 mcg/ inh nasal spray) 2 spray(s) each nostril Once a day (in the morning) as needed for Nasal congestion Allergic rhinitis Duration: 30 Days in each nostril Unchanged folic acid (folic acid 1 mg oral tablet) 1 tab(s) by mouth Once a day Duration: 90 Days Unchanged lamoTRIgine (lamoTRIgine 150 mg oral tablet) TAKE 1 TABLET BY MOUTH TWICE DAILY Unchanged levothyroxine (levothyroxine 75 mcg (0.075 mg) oral tablet) TAKE 1 TABLET BY MOUTH DAILY Unchanged medroxyPROGESTERone (medroxyPROGESTERone 150 mg/ mL intramuscular suspension) INJECT 1ML INTRAMUSCULARLY EVERY 11 WEEKS Unchanged oxybutynin (oxybutynin 10 mg/ 24 hr oral tablet, extended release) 1 tab(s) by mouth Once a day Unchanged prazosin (prazosin 1 mg oral capsule) TAKE 3 CAPSULES BY MOUTH AT BEDTIME Unchanged topiramate (topiramate 25 mg oral tablet) TAKE 1 TABLET BY MOUTH EVERY NIGHT AT BEDTIME Please take this list to your next doctor s visit. Bring all medications you take, including over the counter medications, herbals and other supplements with you to your doctor s visit. Patients and families are reminded to discard old lists and to update any records with all medication providers or retail pharmacies. Education Materials Dental Pain A crack or cavity in a tooth can cause tooth pain. This is because the crack or cavity exposes the sensitive inner area of the tooth. An infection in the gum or the root of the tooth can cause pain and swelling. The pain is often made worse when you drink hot or cold beverages. It can also be worsewhen you bite on hard foods. Pain may spread from the tooth to your ear or the area of the jaw on the same side. Home care Follow these tips when caring for yourself at home: Don't have hot and cold foods and drinks. Your tooth may be sensitive to changes in temperature. Use toothpaste made for sensitive teeth. [place] gently up and down instead of sideways. Brushing sideways can wear away root surfaces if they are exposed. If your tooth is chipped or cracked, or if there is a large open cavity, put oil of cloves directlyon the tooth to relieve pain. You can buy oil of cloves at drugstores. Some pharmacies carry an kiee-dkq-gwimbvz toothache kit. This contains a paste that you can put on the exposed tooth to make it less sensitive. Put a cold pack on your jaw over the sore area to help reduce pain. You may use jvbq-zno-vxiykzu medicine to ease pain, unless your doctor prescribed another medicine.If you have chronic liver or kidney disease, talk with your healthcare provider before using acetaminophen or ibuprofen. Also talk with your provider if you ve had a stomach ulcer or GI bleeding. If you have signs of an infection, you will be given an antibiotic. Take it as directed. Follow-up care Follow up with your dentist, or as advised. Your pain may go away with the treatment given today. But only a dentist can fully look at and treat the cause of your pain. This will keep the pain from coming back. Call 911 Call 911 if any of these occur: Unusual drowsiness Headache or stiff neck Weakness or fainting Difficulty swallowing or breathing When to seek medical advice Call your health care provider right away if any of these occur: Your face becomes swollen or red Pain gets worse or spreads to your neck Fever of 100.4 F (38.0 C) or higher, or as directed by your healthcare provider Pus drains from the tooth [id number] [employer]. [address] [place] [id number]. All rights reserved. This information is not intended as a substitute for professional medical care. Always follow yourhealthcare professional's instructions. Dental Pain A crack or cavity in a tooth can cause tooth pain. This is because the crack or cavity exposes the sensitive inner area of the tooth. An infection in the gum or the root of the tooth can cause pain and swelling. The pain is often made worse when you drink hot or cold beverages. It can also be worsewhen you bite on hard foods. Pain may spread from the tooth to your ear or the area of the jaw on the same side. Home care Follow these tips when caring for yourself at home: Don't have hot and cold foods and drinks. Your tooth may be sensitive to changes in temperature. Use toothpaste made for sensitive teeth. [place] gently up and down instead of sideways. Brushing sideways can wear away root surfaces if they are exposed. If your tooth is chipped or cracked, or if there is a large open cavity, put oil of cloves directlyon the tooth to relieve pain. You can buy oil of cloves at [employer]. Some pharmacies carry an vyez-tgv-mnveada toothache kit. This contains a paste that you can put on the exposed tooth to make it less sensitive. Put a cold pack on your jaw over the sore area to help reduce pain. You may use knwn-oqw-tstzhwy medicine to ease pain, unless your doctor prescribed another medicine.If you have chronic liver or kidney disease, talk with your healthcare provider before using acetaminophen or ibuprofen. Also talk with your provider if you ve had a stomach ulcer or GI bleeding. If you have signs of an infection, you will be given an antibiotic. Take it as directed. Follow-up care Follow up with your dentist, or as advised. Your pain may go away with the treatment given today. But only a dentist can fully look at and treat the cause of your pain. This will keep the pain from coming back. Call 911 Call 911 if any of these occur: Unusual drowsiness Headache or stiff neck Weakness or fainting Difficulty swallowing or breathing When to seek medical advice Call your health care provider right away if any of these occur: Your face becomes swollen or red Pain gets worse or spreads to your neck Fever of 100.4 F (38.0 C) or higher, or as directed by your healthcare provider Pus drains from the tooth [phone] [employer]. [address] [place] [address]. All rights reserved. This information is not intended as a substitute for professional medical care. Always follow yourhealthcare professional's instructions. Dental Cavity A dental cavity is a pit or crater in the surface of a tooth. This exposes the sensitive inner layer of the tooth and causes pain. If the cavity isn t treated, it will get bigger. It may enter the pulp and cause an infection or abscess in the bone at the root end (apex) of the tooth. An infection in the tooth is a much more serious problem than a cavity. If the tooth gets infected, you will need a root canal or the entire tooth taken out (extraction). The pain in your tooth may be made worse by eating sweets or drinking hot or cold beverages. It mayspread from the tooth to your ear or the area of your jaw on the same side. Home care Follow these tips when caring for yourself at home: Don't have sweets and hot and cold foods and drinks. Your tooth may be sensitive to changes in temperature. If your tooth is chipped or cracked, or if there is a large open cavity, put oil of cloves directlyon the tooth to relieve pain. You can buy oil of cloves at drugstores. Some pharmacies carry an gtth-rhn-yitgwlv toothache kit. This contains a paste that you can put on the exposed tooth to make it less sensitive. Put a cold pack on your jaw over the sore area to help reduce pain. You may use yfjp-dup-vvbdusw medicine to ease pain, unless another medicine was prescribed. If you have chronic liver or kidney disease, talk with your healthcare provider before using acetaminophen or ibuprofen. Also talk with your provider if you ve had a stomach ulcer or GI bleeding. If you have signs of an infection, you will be given an antibiotic. Take it as directed. Follow-up care Follow up with your dentist, or as advised. Your pain may go away with the treatment given today. But only a dentist can fully look at and treat this problem to prevent further tooth damage. Call 911 Call 911 if any of these occur: Difficulty swallowing or breathing Weakness or fainting Unusual drowsiness Headache or stiff neck When to seek medical advice Call your healthcare provider right away if any of these occur: Redness or swelling of the face Pain gets worse or spreads to your neck Fever of 100.4 F (38 C) or higher, or as directed by your healthcare provider Pus drains from the tooth or gum [phone] [employer]. [address] [place] [address]. All rights reserved. This information is not intended as a substitute for professional medical care. Always follow yourhealthcare professional's instructions. Additional Information VACCINATE! IT SAVES LIVES! Members of the community who have not yet received the COVID-19 vaccine and would like to receive it can visit one of [facility] vaccine clinics. There are many vaccine clinic locations within the [facility]. For locations and available times, please visit www.gettheshot.coronavirus.[place].gov/. It is important to note that some COVID mobile vaccine clinics are held outdoors and may be canceled in rainy or stormy conditions. To learn more about pediatric vaccinations (ages 5-11), we invite you to visit the [facility] webpage. [email or web address]/[email or web address] [email or web address] learn more about the COVID-19 vaccine, we invite you to visit the CDC website for a list of frequently asked questions. https://www.cdc.gov/coronavirus/2019-ncov/vaccines/faq.html [facility] Patient [facility] Access Instructions: Stay connected with your healthcare team and access your personal medical information anytime with the [facility] Patient Portal. If you would like a full copy of your medical records please contact the [facility] Medical Records Department Monday through Monday between 8a.m. and 4:30p.m. Please follow the directions below to access the portal: 1.Access the email account you provided upon registration to the [facility].2.Look for an invitation email from [facility].3.Open the email and access the invitation link: Accept Invitation to [facility].Fill in the required gr to create your account. Sign into [email or web address] with your username and password that you created in the above steps to stay up to date. You can then view a summary of results, a summary of your visits, and the ability to download your summaries to your computer or send the information securely to a physician. Remember that your healthcare information is confidential, so carefully consider who you will allow to register on the [facility] Patient Portal for access to your information. You can also access the [facility] Patient Portal on the [employer]. Simply click on Health Records under [employer] and then click on the [email or web address] logo. HOW TO SAFELY DISPOSE OF PRESCRIPTION MEDICATIONS Please use one of the following methods to safely dispose of your unused medications. 1.Use a drug disposal kit: the drug disposal pouch allows you to safely discard your old and unuseddrugs. Ask your nurse to give you one when you are discharged.2.Visit a local take-back location: Many local pharmacies and police departments have programs that collect old and unwanted prescriptiondrugs. Call your local pharmacy or go to http://bit.ly/8W5Jl9b to find one close to you.3.Make use of household items: Use cat litter or old coffee grounds to dispose medications if other options arenot available. Mix your drugs with these household products, seal them in an airtight container andthrow it into the garbage. Call [facility]: [phone] to be sure your drugs can be disposed of in this way. Some medicines may require a different approach.4.Never flush your medications down the toilet. IF YOU HAVE BEEN PRESCRIBED AN OPIOIDS FOR PAIN If you have been prescribed an opioid (such as hydrocodone, oxycodone or morphine), it is critical to understand the possible side effects and risks of opioid pain medications. Even when taken as directed, opioids can have several side effects including: Tolerance, meaning you might need to take more of a medication for the same pain relief. Nausea, vomiting and/or constipation. Sleepiness, dizziness, dry mouth, confusion, depression or itching. Physical dependence, meaning you have withdrawal symptoms when a medication is stopped ? this can develop within a few days. KNOW YOUR RESPONSIBILITIES It is important to know exactly how much and how often to take the opioid pain medications you are prescribed. Never take opioids in higher amounts or more often than prescribed. Do not combine opioids with alcohol or other drugs that cause drowsiness, such as benzodiazepines, also known as benzos,including diazepam and alprazolam, muscle relaxants or sleep aids. Never sell or share prescriptionopioids. This is illegal. Store opioids in a secure place and out of reach of others (including children, family, friends and visitors). The last page(s) of this document has been signed and retained as a CHART COPY Signatures Patient Education Materials Dental Pain Dental Pain Dental Cavity Medication Leaflets My discharge plan and instructions have been reviewed and explained to me and I,ISIDRA ZALDIVAR M understand my current condition and have read and understand these discharge instructions. I have received a written copy of the plan/instructions. If I have questions, I am aware that I should contactmy doctor. 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 Isidra Zaldivar is here for a Depo Provera injection. Office provided medication. Date last injected: 09/15/2022 Depo-Provera, 150 mg, administered IM left upper quadrant gluteus, Lot # [id number], expiration date 05/2024. Depo-Provera was given without incident. Date of last menses: Patient's last menstrual period was 06/19/2022 (approximate). Irregular bleeding - No Menses ceased - Yes STD prevention discussed: Yes Patient instructed to return to clinic in 10 week. [email or web address] Provider Trang Mcclain was present in office at time of injection. Anastacia Reese LPN [facility] History of Present illness Narrative* Anastacia Reese LPN - 09/15/2022 2:13 PM EDT Patient identified by name and date of . Isidra Zaldivar is here for a Depo Provera injection. Patient brought medication. Date last injected: 07/07/2022 Depo-Provera, 150 mg, administered IM right upper quadrant gluteus, Lot # , [id number] expiration date 05/2024. Depo-Provera was given without incident. Date of last menses: Patient's last menstrual period was 06/19/2022 (approximate). Irregular bleeding - Yes Menses ceased - Yes STD prevention discussed: Yes Patient instructed to return to clinic in 10 weeks. [email or web address] Provider Dr. Venegas was present in office at time of injection. Anastacia Reese LPN documented in [facility] History of Present illness Narrative* Мария Cooper RN - 08/10/2022 3:00 PM EDT Isidra Zaldivar is a 36 y.o. here for a Urogynecology appointment. No LMP recorded. Patient has had an injection. Patient given thorough instructions for collection of CCU. Pt states understanding. CCU collected. Urine Dip POCT done. PVR per bladder scan: 2mL Reason for visit: - Taking Oxybutynin still, pleased with results and needs refills. Completed PFPT end of 2021, feels like it helped with muscle tone. No concerns today * Brooke Dugan APRN-DEVELOPMENT TECHNICIAN - 08/10/2022 3:00 PM EDT Urogynecology Follow-Up HPI Isidra Zaldivar is a 36 y.o. female, presents for follow up of Urinary incontinence and nocturia/enuresis. Interval history: Continues to take DDAVP at night for nocturia/enuresis in addition to oxybutynin SR 5 mg daily. Will have BMP checked today. Last sodium 140 mmol/L 04/27/2022. Nocturia x0. Denies enuresis at this time. Denies leaking during the day. Denies frequency or urgency. Had previously tried to increase theoxybutynin SR to 10 mg but experienced bladder pain and decided to decrease back to 5 mg. Very happy with management of bladder symptoms at this time. Having unexplained weight loss-being worked up by PCP. Recent evaluation for an elevated CA125. CT of abdomen and pelvis showed 1) small left ovarian cyst vs dominant follicle 2) mild hepatomegaly without mass 3) otherwise normal CT. Also planning on having a cardiac stress test. Denies blood in the urine. Denies surgeries since last appointment. One UTI since last appointment. Added medication to medication list. Urinary Incontinence: Yes Voiding Dysfunction: No Urinary Frequency: Yes Urinary Urgency: Yes Prolapse Symptoms: No Defecatory Dysfunction: No Fecal Incontinence: No Abnormal Bleeding: amenorrheic on Depo last dose 06/2020 Pain: No Abnormal Vaginal Discharge: No Gynecological History: Paps: normal, last performed within the last 1-2 yrs. Mammograms: n/a Menstrual: amenorrheic on Depo. No LMP recorded. Patient has had an injection. Menopausal: No If yes, PMB: Component Ref Range & Units 08/10/22 1430 POCT APPEARANCE, URINE POCT COLOR, URINE POCT GLUCOSE, URINE mg/dL n POCT BILIRUBIN, URINE n POCT KETONES, URINE mg/dL n POCT SPECIFIC GRAVITY, URINE 1.001 - 1.035 1.015 POCT BLOOD, URINE n POCT PH, URINE 5 - 7 6.5 POCT PROTEIN, URINE mg/dL n POCT UROBILINOGEN, URINE 0 - 2 E.U./dL n POCT NITRITE, URINE n POCT LEUKOCYTE, URINE n BMP: Component Ref Range & Units 08/10/22 1504 Sodium 135 - 145 mmol/L 140 Potassium 3.5 - 5.0 mmol/L 4.0 Chloride 98 - 108 mmol/L 107 CO2 21 - 31 mmol/L 25 Glucose 70 - 99 mg/dL 85 BUN 7 - 25 mg/dL 14 Creatinine 0.50 - 1.20 mg/dL 0.67 Calcium 8.6 - 10.5 mg/dL 9.3 Bun/Crea Ratio 21 Osmolality (Calculated) 278 - 305 mOsm/kg 292 Anion Gap 7 - 17 mmol/L 12 eGFR, CKD-EPI, Female >=60 mL/min/1.73m2 >90 Physical Exam BP 118/57 Pulse 72 Wt 167 lb 6.4 oz (75.9 kg) BMI 26.22 kg/m Smoking Status Every Day Body mass index is 26.22 kg/m . Gen: well appearing, NAD, pleasant Chest: RRR, CTAB, non labored breathing : exam deferred Assessment: This is a 36 y.o. female with JOSE (urge predominant), constipation and enuresis currently managed with DDAVP and oxybutynin. Plan: JOSE, urge predominant: - currently taking oxybutynin CR 5 mg daily. Working very well and denies side effects, would like to continue - refill sent, prefers 90 days Enuresis: None, doing well - Currently taking 0.2 mg DDAVP nighty, will continue current dose - sodium 140 mmol/L on BMP 08/10/22 - refill sent for 4 months, at that time will need repeat BMP Constipation: Improved - Continue colace 100mg BID Follow up in 4 months for lab work or prn. I spent 15 minutes with this patient between face-to face discussion and chart review. * Janett Hrerera - 08/10/2022 3:00 PM EDT Venipuncture performed successfully [facility] History of Present illness Narrative* Rosa Garcia RDMS - 08/01/2022 11:30 AM EDT Radiology Service Progress Note PATIENT NAME: Isidra Zaldivar DATE OF SERVICE: August 01, 2022 TIME: 12:00 PM PATIENT IDENTITY VERIFICATION COMPLETED USING TWO (2) IDENTIFIERS: Name and Date of confirmedby patient verbally. FALL SCREENING: Has the patient had 2 falls in the last year or 1 fall with injury or currently using an Ambulatory Assistive Device (Walker, Cane, Wheelchair, Crutches, etc.)? No PATIENT GENDER DATA: Female. status: : No status: NO. PATIENT RELEVANT IMPLANT DATA REVIEWED: Not Applicable RADIOLOGY DEPARTMENT: Ultrasound PERIPHERAL IV DATA: Not applicable SIGNED BY: Rosa Garcia RDMS August 01, 2022 12:00 PM documented in [facility]Tr[facility] History of Present illness Narrative* Meghan Campos RN - 07/07/2022 11:51 AM EST Patient identified by name and date of . Isidra Zaldivar is here for a Depo Provera injection. Patient brought medication. Date last injected: 04/27/22. Patient getting injection every 10 weeks d/t bleeding Depo-Provera, 150 mg, administered IM left upper quadrant gluteus, Lot # [id number], expiration date 06/07/2024. Depo-Provera was given without incident. Date of last menses: Patient's last menstrual period was 06/19/2022 (approximate). Irregular bleeding - Yes Menses ceased - Yes STD prevention discussed: Yes Patient instructed to return to clinic in 10 weeks. [email or web address]-[email or web address].[email or web address] Provider Trang Mcclain CNP was present in office at time of injection. Meghan Campos RN * Trang Mcclain APRN.DEVELOPMENT TECHNICIAN - 07/07/2022 11:18 AM EST Isidra Zaldivar is a 36 year old female who presents for problem visit bleeding prior to Depo Provera. HPI: Depo Provera every 10 weeks due to bleeding early bleeding. Usually has bleeding 1-2 weeks prior to injection every 10 weeks. The last menses started 06/19/2022 which was 16 days prior to scheduled injection. Flow light x 1 week then heavier flow x 1 week. Recently has had a little dizziness and feeling lightheaded. Bleeding stopped yesterday. History of anemia. Has tried different forms of contraception to control menstrual flow and Depo Provera is the only one that lessened flow. Previous to Depo-Provera, menses was monthly, heavy and long but does nor remember exact details. States has had to be hospitalized due to blood loss. Wants to continue Depo Provera. 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: Sexual Activity: Yes; Male Contraception: Injection PAST MEDICAL HISTORY Diagnosis Date ASCUS with positive high risk HPV cervical 04/2019 Learning disability OAB (overactive bladder) [facility] Schizo affective schizophrenia (HCC) PAST SURGICAL HISTORY Procedure Laterality Date CERVIX UTERI CONIZA LP ELCTRO EXCI 2019 LEEP pathology benign EYE SURGERY HX PAST SURGICAL HISTORY OF Bilateral bilateral knee surgery FAMILY HISTORY Problem Relation Age of Onset Heart disease Mother other (respiratory) Mother Lung Cancer Father smoker Asthma Sister No Known Problems Sister No Known Problems Brother Lung Cancer Maternal Grandmother smoke Heart disease Maternal Grandmother Social History Tobacco Use Smoking status: Every Day Packs/day: 1.00 Years: 20.00 Pack years: 20.00 Types: Cigarettes Smokeless tobacco: Never Vaping Use Vaping Use: Never used Substance Use Topics Alcohol use: Never Drug use: Never Comment: 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 levothyroxine (SYNTHROID) 75 mcg tablet Take 75 mcg by mouth daily before breakfast. medroxyPROGESTERone (DEPO-PROVERA) 150 mg/mL injection 1 ml intramuscular injection every 10 weeks. ALBUTEROL SULFATE HFA INHALATION Inhale 2 Puffs as instructed every 4 hours as needed. fluticasone (FLONASE) 50 mcg/actuation nasal spray Use 2 Sprays in each nostril once daily. docusate sodium (COLACE) 100 mg capsule Take 1 capsule by mouth twice daily. lamoTRIgine (LAMICTAL) 100 mg tablet Take 150 mg by mouth twice daily. prazosin (MINIPRESS) 1 mg cap Take 1 mg by mouth three times daily. Take one capsule by mouth in the morning and two capsules at bedtime desmopressin acetate (DDAVP) 0.2 mg tablet Take 0.2 mg by mouth once daily. Cetirizine 10 mg cap Take by mouth once daily. docusate sodium (COLACE) 100 mg capsule Take 100 mg by mouth twice daily. paliperidone ER (INVEGA) 6 mg 24 hr tablet Take 9 mg by mouth once daily. No current facility-administered medications for this visit. Allergies As of Date: 07/07/2022 Allergen Noted Reaction PHENERGAN [PROMETHAZINE] 06/14/2019 Swelling SEASONAL ALLERGIES 04/17/2019 Other: See Comments Fully Assessed 07/07/2022 REVIEW OF SYSTEMS Allergies and current medication updated:Yes EXAM: BP 108/62 Wt 170 lb (77.1kg) LMP 06/19/2022 GENERAL: pleasant female in no apparent distress CHEST: Normal inspiratory effort NEURO: alert and oriented x3,exam grossly non-focal ASSESSMENT/PLAN: 1. Breakthrough bleeding on Depo-Provera - ICD9: 626.6, ICD10: N92.1 (primary diagnosis) - Menses is surgery manager and shorter with Depo Provera despite BTB. Other forms of contraception did nothelp and pt wants to continue Depo Provera. - CBC - US FEMALE PELVIS TRANSVAG 2. Abnormal uterine bleeding (AUB) - ICD9: 626.9, ICD10: N93.9 - CBC - US FEMALE PELVIS TRANSVAG 3. Encounter for management and injection of depo-Provera - ICD9: V25.49, ICD10: Z30.42 - MEDROXYPROGESTERONE 150 MG/ML INTRAMUSCULAR SUSPENSION - dose to be given today in office. Will notify of results. Follow- up as needed. Trang Mcclain APRN.CNP Medical Decision Making: Problems: Moderate: 1+ chronic illnesses with change Data: Unique test(s) ordered: 2 Medical Decision Making Level: 3 - Low documented in this encounterTr[facility]02-02-[address] Patterson [facility] June 09, 2022 10:42am Note Date/Time June 09, 2022 1 0:43am [facility] Medical Records Department [address] [place] [address] Telemedicine Confirmation Receipt 06/09/22 MR#: [id number] Acct: [id number] Name: ISIDRA ZALDIVAR Rep #:[id number] : 1985 36 From: Peterson Patterson MD PCP: Dr. Olman Son, Status:REG CLI [facility] has confirmed receipt of a request for visit. This document confirms receipt of the order initiating the consult. To find the results of the consultation, please view the patient's reports for the scanned Telemed Consult. [facility] Work Phone: 1(102) 300-733402-02-2023 Consult note Author Maggie Guerra [facility] June 09, 2022 10:19am Note Date/Time June 09, 2022 1 0:19am [facility] Medical Records Department [address] [place] [address] Telemedicine Confirmation Receipt 06/09/22 MR#: [id number] Acct: [id number] Name: ISIDRA ZALDIVAR Rep #:[id number] : 1985 36 From: Peterson Patterson MD PCP: Dr. Olman Son, Status:REG CLI [facility] has confirmed receipt of a request for visit. This document confirms receipt of the order initiating the consult. To find the results of the consultation, please view the patient's reports for the scanned Telemed Consult. [facility] Work Phone: 1(706) 297-513212-21-2022 History of Present illness Narrative* Clari Cochran MA - 04/27/2022 2:30 PM EST Gauze placed with pressure on venipuncture site until hemostasis observed, site clean and dry, no redness or swelling observed, bandage placed, pt voiced no concerns. * Mike Quiros MD - 04/27/2022 2:30 PM EST Patient was unable to stay for appointment today, rescheduled for follow up. Lab orders for chem 7 placed with refill for DDAVP. Mike Quiros MD Division of Female Pelvic Medicine and Reconstructive Surgery documented in this encounterOS[facility]12-[facility]22 Miscellaneous Notes* Telephone Encounter - Migdalia Cedillo RN - 04/27/2022 10:04 AM EST Patient notified. Moved nurse visit to 10 weeks. Migdalia Cedillo RN * Telephone Encounter - Trang Mcclain APRN.CNP - 04/27/2022 9:42 AM EST Yes, she can get the Depo Provera every 10 weeks from now on. New prescription filed. Please notifypt and update next nurse appointment. Trang Mcclain APRN.CNP * Telephone Encounter - Migdalia Cedillo RN - 04/27/2022 9:24 AM EST Patient seen for nurse visit today for Depo. Receives injections every 11 weeks. Patient usually spots before her next injection. Patient started a menses on 04/08 that didn't end until yesterday. At it's heaviest she was wearing a pull up pad. Was having cramping. Not passing blood clots. Patient states that's why she is using the depo. Asking if she should have her injections at 10 weeks instead. OK to leave a detailed message if patient does not answer the phone or send Carrot.mxt message. Migdalia Cedillo RN documented in this encounterTrumbull [facility]12-21-2022 History of Present illness Narrative* Migdalia Cedillo RN - 04/27/2022 8:57 AM EST The patient is here for a Depo Provera injection. Patient brought medication. Date last injected - 02/09/22 Depo Provera given without incident. Depo-Provera, 150 mg, administered IM right upper quadrant gluteus, Lot#[id number], expiration date 12/2023, Patient instructed to return to clinic in 11 weeks. Medication verified by dispensing pharmacist. Gretchen Venegas MD present in office at the time of injection. Migdalia Cedillo RN documented in this encounterTrumbull [facility] Hospital11-29-2022 History of Present illness Narrative* Laquita Sweeney, - 04/05/2022 12:00 AM EST NAME: ISIDRA ZALDIVAR CLINIC NO: [id number] DATE OF SERVICE: 04/05/2022 Subjective: Isidra is here to follow up on bilateral lower extremity edema, symptomatic varicose veins. She has tried compression without significant improvement in symptoms. She also has an unexplained 100-pound weight loss and we got a visceral vein study. She has noticed improvement in her appetite following that study. Objective: Her vital signs are stable. She is in no distress. Reviewed her reflux testing. She onlyhas segmental reflux bilaterally. She does have some pretibial varicose veins on the right. Reviewed her mesenteric duplex, which was negative for any celiac artery compression. Assessment/Plan: Symptomatic varicose veins. Reviewed the findings with Isidra. Would recommend that she benefit from ultrasound-guided sclerotherapy to treat the remaining symptomatic veins. Laquita Sweeney D.O. KB/[id number] Audio #: [id number] Date Dictated: 04/05/2022 15:17:06 Date Typed: 04/06/2022 10:23:36 Date Revised: documented in this encounterTrumbull [facility] Hospital10-11-2022 Instructions* Patient Instructions* Laquita Sweeney DO - 02/15/2022 11:39 AM EDT Stocking Wear and Care Your doctor has recommended for you to wear compression stockings. The following instructions are to help you maintain your treatment plan and care for your stockings. You must be properly fitted before ordering your stockings. Ill-fitting stockings could be ineffective or cause injury. Put your stockings on first thing when you wake up, BEFORE you get out of bed. If you need to shower, it is recommended to lie back down after for 20-30 minutes with your feet elevated prior to putting on your stockings. Take your stockings off before bed. Do not sleep in them, unless instructed to do so after a procedure. To wash your stockings, wash with mild soap or detergent (do not use any bleach containing product), rinse well. Roll them in a towel to remove excess water and allow to air dry. There are also law enforcement director recommendations included with your stockings. Skin care- Wash your legs and feet and dry them well each day, especially between your toes. Beforebed, moisturize liberally with a fragrant free, creamy moisturizer (Lubriderm, Roopa, Eucerin, Taylor) Never moisturize between toes. Avoid moisturizing immediately prior to putting on your stockings. You can use rubber gloves, such as Playtex or Sigvaris, when putting on your stockings. The groovesin the palm of the gloved will help you video production intern the stocking while putting it on. Be sure to place theheel on first, prior to pulling up the stocking. Other devices to help with putting on stockings, like the easy glide, can be ordered online and from the location you order your stockings from. Knee- High stockings should end about an inch below the knee, if you pull them up too high, do not fold or roll them down. Place the top of the stockings in the correct place and snap out or pinch out any wrinkles. Over time, the stockings will lose their elasticity and therefore, their effectiveness. If one pairis worn daily, they should be replaced about every 4 months. If alternating between multiple pairs,they will last longer. Begin looking for replacements about a month prior to them needing replaced.This will help avoid a gap in therapeutic use. It is recommended to keep the original box so that re ordering will be easier. It is also recommended that a new fitting be completed to ensure you are wearing the most effective size. Locations: [facility] [phone] [employer] [phone] www.[email or web address]- [phone] www.[email or web address]- [phone] Located in [facility] [place]- call local store and schedule a fitting. documented in this encounterTrumbull [facility] Hospital10-11-2022 History of Present illness Narrative* Laquita Sweeney DO - 02/15/2022 11:16 AM EDT Images from the original note were not included. [facility] DEPARTMENT OF VASCULAR SURGERY OUTPATIENT VISIT DATE February 15, 2022 OUTPATIENT VISIT TYPE CONSULTATION SERVICE DATE: 02/15/2022 SERVICE TIME: 11:16 AM PRIMARY CARE PHYSICIAN: No primary care provider on file. REFERRING PROVIDER: Trang [address] [facility] [address] Consult requested for an opinion regarding the evaluation and treatment of the above. My final impression and recommendations will be communicated back to the requesting physician by way of the shared medical record or letter via US mail. CHIEF COMPLAINT: Patient presents with: New Patient History of Present Illness: Patient is a 36 year old White female presenting for consultation, evaluation and possible treatment of varicose veins.bilateral aching, throbbing, and heaviness. Predisposing factors included not significant and no previous vein treatment . No specific history of injury or prior problems. Relieving factors include support hose, elevation of legs, and reduced activity with mild improvement in symptoms. Patient denies DVT, phlebitis, and treatment with blood thinners. She also admits to significant unintentional weight loss. States she does not have an appetite. Denies food fear or postprandial pain. PAIN ASSESSMENT: PAIN EVALUATION No data found in the last 1 encounters. Obstetric History T1 L1 SAB0 IAB0 Ectopic0 Multiple0 Live Births0 Name of Baby 1: Not recorded Date: Not recorded GA: Not recorded Delivery: Not recorded Apgar1: Not recorded Apgar5: Not recorded Living: Not recorded Duration of Symptoms: Progressive PREVIOUS TESTS: None PAST MEDICAL HISTORY Diagnosis Date ASCUS with positive high risk HPV cervical 04/2019 Learning disability OAB (overactive bladder) [facility] Schizo affective schizophrenia (HCC) PAST SURGICAL HISTORY Procedure Laterality Date CERVIX UTERI CONIZA LP ELCTRO EXCI 2019 LEEP pathology benign EYE SURGERY HX PAST SURGICAL HISTORY OF Bilateral bilateral knee surgery SOCIAL HISTORY: Social History Tobacco Use Smoking status: Every Day Packs/day: 1.00 Years: 20.00 Pack years: 20.00 Types: Cigarettes Smokeless tobacco: Never Vaping Use Vaping Use: Never used Substance Use Topics Alcohol use: Never Drug use: Never Comment: 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, recovery for 4 years FAMILY HISTORY Problem Relation Age of Onset Heart disease Mother other (respiratory) Mother Lung Cancer Father smoker Asthma Sister No Known Problems Sister No Known Problems Brother MEDICATIONS: ALBUTEROL SULFATE HFA INHALATION^Inhale 2 Puffs as instructed every 4 hours as needed.^Disp: ^Rfl: fluticasone (FLONASE) 50 mcg/actuation nasal spray^Use 2 Sprays in each nostril once daily.^Disp: ^Rfl: medroxyPROGESTERone (DEPO-PROVERA) 150 mg/mL injection^1 ml intramuscular injection every 11 weeks.^Disp: 1 mL^Rfl: 4 docusate sodium (COLACE) 100 mg capsule^Take 1 capsule by mouth twice daily.^Disp: 60 capsule^Rfl: 5 lamoTRIgine (LAMICTAL) 100 mg tablet^Take 150 mg by mouth twice daily. ^Disp: ^Rfl: desmopressin acetate (DDAVP) 0.2 mg tablet^Take 0.2 mg by mouth once daily.^Disp: ^Rfl: Cetirizine 10 mg cap^Take by mouth once daily.^Disp: ^Rfl: docusate sodium (COLACE) 100 mg capsule^Take 100 mg by mouth twice daily.^Disp: ^Rfl: prazosin (MINIPRESS) 1 mg cap^Take 1 mg by mouth three times daily. Take one capsule by mouth in the morning and two capsules at bedtime^Disp: ^Rfl: (Patient not taking: Reported on 02/15/2022) paliperidone ER (INVEGA) 6 mg 24 hr tablet^Take 9 mg by mouth once daily. ^Disp: ^Rfl: (Patient not taking: Reported on 02/15/2022) ALLERGIES: ALLERGIES Allergen Reactions Phenergan [Prometha* Swelling Seasonal Allergies Other: See Comments Stuffy head, watery eyes REVIEW of SYSTEMS: Constitutional: Weight loss - yes, Has lost 100lb+ seeing gastrology in April HEENT: Negative for frequent or significant headaches, No changes in hearing or vision, no nose bleeds or other nasal problems Respiratory: Negative for cough, wheezing, or shortness of breath Cardiovascular: Negative for chest pain, leg swelling or palpitations Gatrointestinal: Negative for abdominal discomfort, blood in stools or black stools or change in bowel habits Genitourinary: Positive for incontinence and taking medication Musculoskeletal: Negative for joint pain or swelling, back pain or muscle pain Endocrine: Negative for cold or heat intolerance, polyuria, polydipsia and goiter Hematology/Lymphatic: Negative for prolonged bleeding and Positive for bruises easily Neurologic: Negative for headaches, syncope, and paralysis and Positive for seizures and taking medication Integumentary: Negative for lesions, rash, and itching. PHYSICAL EXAM: VITALS: There were no vitals taken for this visit. General: Alert, oriented, cooperative, healthy appearance Integumentary: Normal color, no rash, no lesions. HEENT: EOM, pupils equal, round and reactive. Cardiovascular: Pulse regular. Lungs: No chest deformities or chest wall tenderness. Abdomen: Not examined Extremities: Edema and Varicose veins Neurological: AAOx3. Normal cognition and motor skills. Vascular: Dorsalis Pedal Right: Normal - Left: Normal Diagnostic tests reviewed for today's visit: Most recent labs Most recent imaging IMPRESSION: Ms. Zaldivar is a 36 year old female with symptomatic varicose veins and edema. Significant unintentional weight loss . PLAN and RECOMMENDATIONS: Discussed venous pathology with patient Recommend trial of compression stockings, elevation and exercise Will get venous reflux testing and follow up to discuss results Prescription provided for compression stockings 20-30 mmHg and instructed on use Will get mesenteric artery duplex to rule out arterial pathology contributing to her weight loss SIGNATURE: Laquita Sweeney DO PATIENT NAME: Isidra Zaldivar DATE: February 15, 2022 TIME: 11:16 AM documented in this encounterTrumbull [facility]10-05-2022 History of Present illness Narrative* Chente Antunez RN - 02/09/2022 3:33 PM EDT Patient identified by name and date of . Isidra Zaldivar is here for a Depo Provera injection. Patient brought medication. Date last injected: 11/24/21 Depo-Provera, 150 mg, administered IM left upper quadrant gluteus, Lot # [id number], expiration date 07/2023. Depo-Provera was given without incident. Date of last menses: No LMP recorded. Patient has had an injection. Irregular bleeding - No Menses ceased - Yes STD prevention discussed: Yes Patient instructed to return to clinic on 11 weeks. [email or web address] Provider 11 weeks was present in office at time of injection. Chente Antunez RN documented in this encounterTrumbull [facility] Hospital09-02-2022 Note ORIGINAL HISTORY: Thyroid mass, weight loss COMPARISON: No FINDINGS: Size right lobe: 5.8 x 2.1 x 2.2 cm. Size left lobe: 5.6 x 1.8 x 1.8 cm. Size isthmus: 0.6 cm. Texture: Heterogeneous There is a somewhat ill-defined cyst or small cluster of adjacent cysts spanning the right lobe and isthmus, about 5 mm in diameter. This is cystic and anechoic. IMPRESSION: Anechoic or cystic area, benign in appearance. Markedly heterogeneous echotexture of the gland. Interpreted by: Jesús Luong MD Preliminary Report By: Jesús Luong MD Electronically signed By Jesús Luong MD Dictated Date: 01/07/2022 2:59:49 PM Prelim Date: 01/07/2022 3:02:39 PM Sign Date: 01/07/2022 3:02:39 PM Ordering Provider: [facility]09-02-2022 Note ORIGINAL HISTORY: Thyroid mass, weight loss COMPARISON: No FINDINGS: Size right lobe: 5.8 x 2.1 x 2.2 cm. Size left lobe: 5.6 x 1.8 x 1.8 cm. Size isthmus: 0.6 cm. Texture: Heterogeneous There is a somewhat ill-defined cyst or small cluster of adjacent cysts spanning the right lobe and isthmus, about 5 mm in diameter. This is cystic and anechoic. IMPRESSION: Anechoic or cystic area, benign in appearance. Markedly heterogeneous echotexture of the gland. Interpreted by: Jesús Luong MD Preliminary Report By: Jesús Luong MD Electronically signed By Jesús Luong MD Dictated Date: 01/07/2022 2:59:49 PM Prelim Date: 01/07/2022 3:02:39 PM Sign Date: 01/07/2022 3:02:39 PM Ordering Provider: [facility]08-18-2022 History of Present illness Narrative* Betsey Espinoza MD - 12/23/2021 2:40 PM EDT Isidra is a 36 year old Female who presents today for a colposcopy. The patient's last pap smear was Positive HPV from December 2021. Patient has a history of abnormal pap: Yes. The patient has had prior treatment: LEEP. test: negative UNIVERSAL PROTOCOL / SAFETY CHECKLIST Procedure to be Performed: Colposcopy Sign In: A Moment of CARE was completed. Personnel directly involved with the procedure wore the appropriate PPE (Personal Protective Equipment). Patient/Surrogate Stated/Verified: PATIENT VERIFIED(optional for EMERGENT procedures): Patient name, Date of , Relevant allergies, and The intended procedure Time Out Communication: Intended patient and procedure match the source documents. Consent documented and matches the intended procedure. Sign Out: SIGN OUT (optional for EMERGENT procedures): All specimen containers correctly labeled. All instruments, equipment, possible retained foreign bodies accounted for. Post-procedure follow-up management communicated and Plan of Care Visit completed when applicable. PROCEDURE: EXTERNAL GENITALIA: Normal in appearance without lesions VAGINA: Normal in appearance without lesions CERVIX: Speculum placed in vagina and excellent visualization of cervix achieved. Cervix swabbed x 3 with 3% acetic acid solution. Cervix grossly normal. Squamocolumnar junction visualized. acetowhite changes noted 8 o'clock. BIOPSY: Done at 8:00 ECC: done HEMOSTASIS: Obtained with silver nitrate Procedure Summary: Patient tolerated procedure well and colposcopy was adequate. ASSESSMENT: HPV effect PLAN: Specimens labeled and sent to Pathology. Will notify patient of results in 1-2 weeks. Post-procedure instructions reviewed and written material given to the patient. Betsey Espinoza DO documented in this encounterTrumbull [facility] Hospital08-10-2022 Hospital Discharge instructions Patient Education 12/15/2021 16:47:07 Dysuria Dysuria Painful urination (dysuria) is often caused by a problem in the urinary tract. Dysuria is pain felt during urination. It is often described as a burning. Learn more about this problem and how it can be treated. What causes dysuria? Possible causes include: Infection with a bacteria or virus such as a urinary tract infection (UTI or a sexually transmittedinfection (STI) Sensitivity or allergy to chemicals such as those found in lotions and other products Prostate or bladder problems Radiation therapy to the pelvic area How is dysuria diagnosed? Your healthcare provider will examine you. He or she will ask about your symptoms and health. Aftertalking with you and doing a physical exam, your healthcare provider may know what is causing your dysuria. He or she will usually request a sample of your urine. Tests of your urine, or a urinalysis, are done. A urinalysis may include: Looking at the urine sample (visual exam) Checking for substances (chemical exam) Looking at a small amount under a microscope (microscopic exam) Some parts of the urinalysis may be done in the provider's office and some in a lab. And, the urinesample may be checked for bacteria and yeast (urine culture). Your healthcare provider will tell you more about these tests if they are needed. How is dysuria treated? Treatment depends on the cause. If you have a bacterial infection, you may need antibiotics. You may be given medicines to make it easier for you to urinate and help relieve pain. Your healthcare provider can tell you more about your treatment options. Untreated, symptoms may get worse. When to call your healthcare provider Call the healthcare provider right away if you have any of the following: Fever of 100.4 F (38 C) or higher No improvement after three days of treatment Trouble urinating because of pain New or increased discharge from the vagina or penis Rash or joint pain Increased back or abdominal pain Enlarged painful lymph nodes (lumps) in the groinTh [phone] [employer]. [address] [place] [address], [place] [address]. All rights reserved. This information is not intended as a substitute for professional medical care. Always follow yourhealthcare professional's instructions. Follow Up Care 12/15/2021 16:05:51 With:OLMAN SON DO Address: [address] [place] [phone] When:2-4 days [facility] Note Discharge Instructions Thank you for allowing [facility] to assist you with your healthcare needs. The following is importantdischarge information regarding your hospital visit. Diagnosis from Today's Visit Dysuria What to Do Next Instructions from Your Care Team No qualifying data available. Post Acute Orders No qualifying data available. You Need to Schedule the Following Appointments Follow Up with OLMAN SON DO When Within 2-4 days Where: [address] [place] [phone] Allergies ZyrTEC promethazine (Eruption) seasonal enviromental (stuffy nose, sneezing) Medications Please ask your primary doctor or pharmacist before taking any other medication not listed, including over the counter drugs, herbal medications, vitamins and or supplements as they may interact withyour home medications. Please take this list to your next doctor s visit. Bring all medications you take, including over the counter medications, herbals and other supplements with you to your doctor s visit. Patients and families are reminded to discard old lists and to update any records with all medication providers or retail pharmacies. Education Materials Dysuria Painful urination (dysuria) is often caused by a problem in the urinary tract. Dysuria is pain felt during urination. It is often described as a burning. Learn more about this problem and how it can be treated. What causes dysuria? Possible causes include: Infection with a bacteria or virus such as a urinary tract infection (UTI or a sexually transmittedinfection (STI) Sensitivity or allergy to chemicals such as those found in lotions and other products Prostate or bladder problems Radiation therapy to the pelvic area How is dysuria diagnosed? Your healthcare provider will examine you. He or she will ask about your symptoms and health. Aftertalking with you and doing a physical exam, your healthcare provider may know what is causing your dysuria. He or she will usually request a sample of your urine. Tests of your urine, or a urinalysis, are done. A urinalysis may include: Looking at the urine sample (visual exam) Checking for substances (chemical exam) Looking at a small amount under a microscope (microscopic exam) Some parts of the urinalysis may be done in the provider's office and some in a lab. And, the urinesample may be checked for bacteria and yeast (urine culture). Your healthcare provider will tell you more about these tests if they are needed. How is dysuria treated? Treatment depends on the cause. If you have a bacterial infection, you may need antibiotics. You may be given medicines to make it easier for you to urinate and help relieve pain. Your healthcare provider can tell you more about your treatment options. Untreated, symptoms may get worse. When to call your healthcare provider Call the healthcare provider right away if you have any of the following: Fever of 100.4 F (38 C) or higher No improvement after three days of treatment Trouble urinating because of pain New or increased discharge from the vagina or penis Rash or joint pain Increased back or abdominal pain Enlarged painful lymph nodes (lumps) in the groinTh [id number] [employer]. [address] [place] [address]71. All rights reserved. This information is not intended as a substitute for professional medical care. Always follow yourhealthcare professional's instructions. Additional Information VACCINATE! IT SAVES LIVES! Members of the community who have not yet received the COVID-19 vaccine and would like to receive it can visit one of [facility] vaccine clinics. There are many vaccine clinic locations within the [facility]. For locations and available times, please visit [email or web address]. It is important to note that some COVID mobile vaccine clinics are held outdoors and may be canceled in rainy orstormy conditions. To learn more about pediatric vaccinations (ages 5-11), we invite you to visit the [facility] webpage. [email or web address] learn more about the COVID-19 vaccine, we invite you to visit the [place] website for a list of frequently asked questions. [email or web address] [facility] Patient Portal Access Instructions: Stay connected with your healthcare team and access your personal medical information anytime with the [facility] Patient Portal. If you would like a full copy of your medical records please contact the [facility] Medical Records Department Monday through Monday between 8a.m. and 4:30p.m. Please follow the directions below to access the portal: 1.Access the email account you provided upon registration to the hospital.2.Look for an invitation email from [facility].3.Open the email and access the invitation link: Accept Invitation to [facility]4.Fill in the required gr to create your account. Sign into [email or web address] with your username and password that you created in the above steps to stay up to date. You can then view a summary of results, a summary of your visits, and the ability to download your summaries to your computer or send the information securely to a physician. Remember that your healthcare information is confidential, so carefully consider who you will allow to register on the [facility] Patient Portal for access to your information. You can also access the [facility] Patient Portal on the Hand[employer]. Simply click on Health Records under [employer] and then click on the [facility] logo. HOW TO SAFELY DISPOSE OF PRESCRIPTION MEDICATIONS Please use one of the following methods to safely dispose of your unused medications. 1.Use a drug disposal kit: the drug disposal pouch allows you to safely discard your old and unuseddrugs. Ask your nurse to give you one when you are discharged.2.Visit a local take-back location: Many local pharmacies and police departments have programs that collect old and unwanted prescriptiondrugs. Call your local pharmacy or go to [email or web address] India.Kojami/9R5Ol3c to find one close to you.3.Make use of household items: Use cat litter or old coffee grounds to dispose medications if other options arenot available. Mix your drugs with these household products, seal them in an airtight container andthrow it into the garbage. Call [facility]: [phone] to be sure your drugs can be disposed of in this way. Some medicines may require a different approach.4.Never flush your medications down the toilet. IF YOU HAVE BEEN PRESCRIBED AN OPIOIDS FOR PAIN If you have been prescribed an opioid (such as hydrocodone, oxycodone or morphine), it is critical to understand the possible side effects and risks of opioid pain medications. Even when taken as directed, opioids can have several side effects including: Tolerance, meaning you might need to take more of a medication for the same pain relief. Nausea, vomiting and/or constipation. Sleepiness, dizziness, dry mouth, confusion, depression or itching. Physical dependence, meaning you have withdrawal symptoms when a medication is stopped ? this can develop within a few days. KNOW YOUR RESPONSIBILITIES It is important to know exactly how much and how often to take the opioid pain medications you are prescribed. Never take opioids in higher amounts or more often than prescribed. Do not combine opioids with alcohol or other drugs that cause drowsiness, such as benzodiazepines, also known as benzos,including diazepam and alprazolam, muscle relaxants or sleep aids. Never sell or share prescriptionopioids. This is illegal. Store opioids in a secure place and out of reach of others (including children, family, friends and visitors). The last page(s) of this document has been signed and retained as a CHART COPY Signatures Patient Education Materials Dysuria Medication Leaflets My discharge plan and instructions have been reviewed and explained to me and ICARINA DANIELLE M understand my current condition and have read and understand these discharge instructions. I have received a written copy of the plan/instructions. If I have questions, I am aware that I should contactmy doctor. 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 Isidra is a 36 year old who presents for an annual gynecologic exam with complaints, none. States that she is still holding onto urine when she urinates states that she sometimes has to lean forward to backs to release the rest of the urine. Happens with every urination. Following Urogyn clinic at [facility]. Also concerned with spider vein on right leg, would like to see someone from vascular. Denies any pain with the varicose veins. Menses: No Menses - Depo Provera. Contraception: Depo Provera HPV vaccine: unsure Last Pap: 04/22/2019 abnormal ASCUS HPV +, Leep Procedure 05/13/2019 high grade squamous intraepithelial lesion 05/22/19 - FINAL DIAGNOSIS 1. Endocervix, LEEP (A): - Inflamed and cauterized transformation zone mucosa. - Negative for dysplasia. 2.Endocervix, curettings (B): - Fragments of unremarkable endocervical and squamous Epithelium. HPV: 04/19/2019 positive History of abnormal pap: Yes Last mammogram: never Sexually active: Yes History of STDS: GC and HPV Patient concerns for STD exposure: No. 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 LMP: Injection Age at Menarche: Age at First : Age at Menopause: Apprentice Funeral Director History Comments: Sexual Activity: Yes; Male Contraception: Injection PAST MEDICAL HISTORY Diagnosis Date ASCUS with positive high risk HPV cervical 04/2019 Learning disability Schizo affective schizophrenia (HCC) PAST SURGICAL HISTORY Procedure Laterality Date PAST SURGICAL HISTORY OF Bilateral bilateral knee surgery FAMILY HISTORY Problem Relation Age of Onset Heart disease Mother other (respiratory) Mother Asthma Sister SOCIAL HISTORY Social History Tobacco Use Smoking status: Current Every Day Smoker Smokeless tobacco: Never Used Vaping Use Vaping Use: Never used Substance Use Topics Alcohol use: Never Drug use: Never Comment: 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 No bloating, early satiety, indigestion, orincreased flatulence. Does have constipation, taking softeners - well controlled per patient. Bladder: No dysuria, gross hematuria, urinary frequency, urinary urgency. Incontinence at times anddoesn't feel like she empty's bladder all the way followed by [facility] at [facility]. DDAVP at bedtime, oxybutynin in the mornings Breast: No breast lumps, nipple d/c, overlying skin changes, redness or skin retraction. Allergies and current medication updated:Yes EXAM: BP 100/62 Ht 5' 7 (1.70m) Wt 179 lb (81.2kg) BMI 28.03 kg/(m^2). GENERAL: pleasant, female in no apparent distress HEENT: Normocephalic, atraumatic, mucus membranes moist and no lesions NECK: Supple, full range of motion, no adenopathy and thyroid normal DERMATOLOGY: Normal, without lesions, non-icteric, non-hirsute BREAST: soft, non-tender, symmetric, no dominant mass, normal nipple-areolar complex, no lymphadenopathy and no nipple discharge CHEST: Normal inspiratory effort ABDOMEN: soft, non-tender and no masses PELVIC: external genitalia normal, normal Bartholin's glands, urethra, Punaluu's glands, no vulvar lesions, no cervical lesions, good vaginal support, physiologic discharge present, normal appearing perineal body and perianal region BIMANUAL: uterus normal size, shape and consistency, no adnexal masses and non-tender RECTOVAGINAL: deferred. NEURO: alert and oriented x3,exam grossly non-focal EXTREMITIES: normal. Varicosities right lower and upper leg. ASSESSMENT/PLAN: 1) Health maintenance: Pap done with HPV. Nutrition, exercise and routine health maintenance exams reviewed. Smoking cessation: Benefits of smoking cessation reviewed. Patient encouraged to avoid smoking. Patient not interested In quitting at this time 2) Contraception: Depo Provera. Contraceptive options reviewed and information provided. 3) STD screening: Declined STD check. 4) Asymptomatic varicose veins of right lower extremity - ICD9: 454.9, ICD10: I83.91 (primary diagnosis) - CONSULT TO VASCULAR SURGERY 5) Follow up one year or sooner as needed Terry Guillen APRN Student TEACHING PROVIDER (Physician/PA/ETIQUETTE COACH) NOTE OF PERSONAL INVOLVEMENT IN CARE: I have personally seen and examined the patient and performed the medical decision-making components. I have reviewed the Advanced Practice Registered Nurse (ETIQUETTE COACH) Student's documentation and verified the findings in the note as written. Any additions or changes are noted in bold/italics. Signature: Trang Mcclain Date: 12/08/2021 Time: 3:30 PM Trang Mcclain APRN.DEVELOPMENT TECHNICIAN documented [facility] History of Present illness Narrative* Lori Campbell RN - 11/24/2021 2:44 PM EDT Patient identified by name and date of . Isidra Zaldivar is here for a Depo Provera injection. Patient brought medication. Date last injected: 09/03/2021 Depo-Provera, 150 mg, administered IM right upper quadrant gluteus, Lot # [id number], expiration date 08/05/2023. Depo-Provera was given without incident. Date of last menses: No LMP recorded. Patient has had an injection. Irregular bleeding - Yes Menses ceased - No STD prevention discussed: Yes Patient instructed to return to clinic on 11 weeks. [email or web address] Provider Trang Mcclain was present in office at time of injection. Lori Campbell RN * Trang Mcclain APRN.DEVELOPMENT TECHNICIAN - 11/24/2021 1:49 PM EDT Isidra Zaldivar is a 35 year old female who presents for problem visit vaginal bleeding with Depo Provera HPI: Usually gets Depo-Provera injection a week early. Last Depo 09/03/2021 - was unable to get injection early due to clinic not giving early. Should have had injection 11/19/2021 so that she would not begin bleeding. 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 LMP: Injection Age at Menarche: Age at First : Age at Menopause: Apprentice Funeral Director History Comments: Sexual Activity: Yes; Male Contraception: Injection PAST MEDICAL HISTORY Diagnosis Date ASCUS with positive high risk HPV cervical 04/2019 Learning disability Schizo affective schizophrenia (HCC) PAST SURGICAL HISTORY Procedure Laterality Date PAST SURGICAL HISTORY OF Bilateral bilateral knee surgery FAMILY HISTORY Problem Relation Age of Onset Heart disease Mother other (respiratory) Mother Asthma Sister Social History Tobacco Use Smoking status: Current Every Day Smoker Smokeless tobacco: Never Used Vaping Use Vaping Use: Never used Substance Use Topics Alcohol use: Never Drug use: Never Comment: 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 docusate sodium (COLACE) 100 mg capsule Take 1 capsule by mouth twice daily. lamoTRIgine (LAMICTAL) 100 mg tablet Take 150 mg by mouth twice daily. prazosin (MINIPRESS) 1 mg cap Take 1 mg by mouth three times daily. Take one capsule by mouth in the morning and two capsules at bedtime desmopressin acetate (DDAVP) 0.2 mg tablet Take 0.2 mg by mouth once daily. Cetirizine 10 mg cap Take by mouth once daily. docusate sodium (COLACE) 100 mg capsule Take 100 mg by mouth twice daily. paliperidone ER (INVEGA) 6 mg 24 hr tablet Take 9 mg by mouth once daily. Current Facility-Administered Medications Medication Dose Route Frequency medroxyPROGESTERone 150 mg injection (DEPO-PROVERA) 150 mg INTRAMUSCULAR every 12 weeks Allergies As of Date: 11/24/2021 Allergen Noted Reaction PHENERGAN [PROMETHAZINE] 06/14/2019 Swelling SEASONAL ALLERGIES 04/17/2019 Other: See Comments Fully Assessed 11/24/2021 REVIEW OF SYSTEMS Allergies and current medication updated:Yes EXAM: BP 108/68 Wt 185 lb (83.9kg) GENERAL: pleasant, female in no apparent distress CHEST: Normal inspiratory effort NEURO: alert and oriented x3,exam grossly non-focal ASSESSMENT/PLAN: 1. Breakthrough bleeding on Depo-Provera - ICD9: 626.6, ICD10: N92.1 (primary diagnosis) - Depo Provera every 11 weeks to control HMB. Previous clinic would not give before 12 weeks. Bleeding x 5 days. 2. Encounter for management and injection of depo-Provera - ICD9: V25.49, ICD10: Z30.42 - MEDROXYPROGESTERONE 150 MG/ML INTRAMUSCULAR SUSPENSION every 11 weeks. Follow-up at annual. Trang Mcclain APRN.CNP I spent a total of 20 minutes on the date of the service which included preparing to see the patient, [id number] patient care, completing clinical documentation, obtaining and/or reviewing separately obtained history, performing a medically appropriate examination, counseling and educating the pat ient/family/caregiver and ordering medications, tests, or procedures. documented in this encounterTr[facility]ull [facility] Instructions* Patient Instructions* MARTIN Hatfield - 09/09/2021 2:45 PM EDT Images from the original note were not included. 1. Please Continue your current anti seizure medication regimen with lamotrigine 150 mg twice a day 2. Please do not drive until you are seizure free for at least 6 months. Please do not work in close proximity of heavy machinery with moving parts, working on high places such as scaffoldings, ladders, and roofs. Please take caution and do not swim or take baths unsupervised, or shower with water accumulation. Finally, please avoid open flames or gas stove tops unsupervised. 3. You have 24 hours to make up a missed dose. Please make up the dose within a day to help preventbreakthrough seizures. Please follow-up with Dr. Clair Saldaña DO in the clinic in 1 year. If you have any questions or concerns prior to the next visit, you can call the Neurology clinic at [phone]. If you have access through [facility], you can contact me through that system as well. documented in this encounterNorwalk [facility]05-[facility]22 History of Present illness Narrative* Venita Abraham - 09/09/2021 2:20 PM EDT Double vision - Dizziness - Sleepiness - Blurred Vision - Unsteadiness - Shaky Hands - Upset Stomach - Weight gain - Headaches - Nervousness - Depression - Memory Problems + Disturbed Sleep - Concentrating - Rashes - Hair Loss - Tiredness - Constipation - - * MARTIN Hatfield - 09/09/2021 2:20 PM EDT Images from the original note were not included. Isidra Zaldivar was seen in the [facility] on 09/09/2021. She is here today for a follow-up. She was last seen on 04/20/[address] Clair Saldaña DO. Interval History Isidra is a 35 y.o. female who has not experienced any breakthrough seizures since the last visit. Her last breakthrough seizure was in December 2019. She uses Depo, last injection 09/03/21. She is also seen by urogyn for enuresis and is on oxybutyninand DDAVP. History of Present Illness Dr Saldaña 04/2020: History of Present Illness: As you may know, Ms. Mandujano started having seizures at the age of 9. She does have a warning sign prior to her seizures in which she feels tired and shaky. This lasts for a few seconds and then she loses consciouness. She reports that during these seizures she stares ahead and sometimes this evolves into a GTC seizure. She reports that her last seizure was in 2002 at the age of 17. In regards to her work-up, the patient had an EEG at the age of 15 that's he was told was abnormal.She is not sure where this EEG was performed. She had a routine EEG at [facility] on 09/2018 and an extended EEG on 12/2018 which were both normal. She reports being on Lamictal since she was a child. She was off of her medications for around 5 months when she became and continued to remain seizure free. At the last visit, the patient reported 2 breakthrough seizures and thus we restarted Lamictal and then increased this to 150 mg BID. Interval History: Since the last visit, Ms. Zaldivar has been doing well. She has not had any seizures. The patient reports that she is taking Lamictal 150 mg BID. She is tolerating the medication well with no side effects. She endorses medication compliance. She has one baby boy who is 1 year old. He has been diagnosed with BEENA. She is stressed because herroommate kicked her and her boyfriend out of the house and they are struggling to find a place to live. She is on the depot injection but reports that she will be trying to get in May/Jun. Of note, the patient did get on the depot injection through her first . Childbearing Age Woman with Epilepsy: Patient on OCP in Conjunction with an Enzyme Inducing Anti-epileptic Drug (ie Phenobarbital, Primidone, Phenytoin, Carbamazepine, Oxcarbazepine): no Patient on OCP in Conjunction with Lamictal: no Patient on OCP in Conjunction with Topamax (of at least 200 mg daily): no Patient taking supplemental Folate: FA 1 mg Anti-epileptic Medications: Current Anti-epileptic Medications Lamictal 150 mg BID Previous Anti-epileptic Medications None Past Medical/Surgical History Past Medical History: Diagnosis Date Arthritis Asthma Depression GERD (gastroesophageal reflux disease) Migraine Renal disease Schizophrenia Seizure pt states last seizure was 2002 Past Surgical History: Procedure Laterality Date REPAIR VAGINAL EPISIOTOMY OR TEAR Midline 01/30/2019 Laterality: Midline; Surgeon: Gretchen Easton MD; Location: [facility] LD OR KNEE SURGERY both Social History Socioeconomic History Marital status: Spouse name: Not on file Number of children: Not on file Years of education: Not on file Highest education level: Not on file Occupational History Not on file Tobacco Use Smoking status: Current Every Day Smoker Packs/day: 1.00 Years: 14.00 Pack years: 14.00 Types: Cigarettes Smokeless tobacco: Never Used Tobacco comment: pt given quitting tobacco use handout. Vaping Use Vaping Use: Never used Substance and Sexual Activity Alcohol use: Never Drug use: Not Currently Types: Marijuana Comment: last THC 3 years ago. None recently in Sexual activity: Yes Partners: Male control/protection: Injection Other Topics Concern Service Not Asked Blood Transfusions Not Asked Caffeine Concern Not Asked Occupational Exposure Not Asked Hobby Hazards Not Asked Sleep Concern Not Asked Stress Concern Not Asked Weight Concern Not Asked Special Diet Not Asked Back Care Not Asked Exercise Not Asked Bike Helmet Not Asked Seat Belt Not Asked Domestic Violence Not Asked Social History Narrative Not on file Social Determinants of Health Financial Resource Strain: Not on file Food Insecurity: Not on file Transportation Needs: Not on file Physical Activity: Not on file Stress: Not on file Social Connections: Not on file Intimate Partner Violence: Not on file Housing Stability: Not on file Medications Allergies Allergen Reactions Phenergan [Promethazine] Rash Seasonal [*Seasonal] Current Outpatient Medications Medication Sig Dispense Refill desmopressin 0.2 MG tablet Take 1 tablet by mouth daily. 30 tablet 2 Disposable Gloves Misc 1 box disposable gloves 1 Container 11 docusate 100 MG capsule TAKE 1 CAPSULE BY MOUTH TWICE DAILY NEEDED FOR CONSTIPATION 30 capsule 3 ferrous sulfate 300 (60 FE) MG/5ML Syrup Take 300 mg by mouth daily. folic acid 1 MG tablet Take 1 tablet by mouth daily. 30 tablet 5 Incontinence Supply Disposable ([employer] Underpads Day/Nght 30x36) [facility] Dispense 1 package for bed protection against urinary and fecal incontinence 1 Each 11 Incontinence Supply Disposable ([employer] Plus Undergarments) [facility] Extra large size pull up incontinence underwear. Change as needed for urinary and fecal incontinence. 120 Each 11 Incontinence Supply Disposable (Underpads Extra Large) [facility] Dispense 1 box of 150 each for mattressprotection against urinary and fecal incontinence. 1 Each 11 lamoTRIgine 150 MG tablet Take 1 tablet by mouth 2 times daily. 60 tablet 1 medroxyPROGESTERone acetate 150 MG/ML Suspension Prefilled Syringe inj syringe ADMINISTER 1 ML IN THE MUSCLE 1 TIME 1 mL 0 oxybutynin CR 5 MG Tab SR 24 HR tablet Take 1 tablet by mouth daily. 30 tablet 5 potassium chloride 20 MEQ Pack Take 20 mEq by mouth as needed. prazosin 1 MG Cap Take 1 mg by mouth At bedtime. Vit-Fe Fumarate-FA ( Plus) 27-1 MG tablet Take 1 tablet by mouth daily. 30 tablet 11 senna 8.6 MG Tab Take 1 tablet by mouth 2 times daily as needed for Constipation 1st Line. 30 tablet 1 paliperidone 6 MG Tab SR 24 HR ER tablet Take 1 tablet by mouth daily. (Patient not taking: No sig reported) 15 tablet 1 Current Facility-Administered Medications Medication Dose Route Frequency Provider Last Rate Last Admin medroxyPROGESTERone acetate (DEPO-PROVERA) injection (vial) 150 mg 150 mg Intramuscular Every 90 Days Thalia García MD 150 mg at 09/03/21 1404 ROS Double Vision - Dizziness - Sleepiness - Blurred Vision - Unsteadiness - Shaky hands - Upset Stomach - Weight Gain - Headaches - Nervousness - Depression - Memory problems + Disturbed Sleep - Difficulty Concentrating - Rashes - Hair loss - Tiredness - Constipation - Neurological Disorders Depression Inventory for Epilepsy (NDDI-E) Everything is a struggle: Never Nothing I do is right: Never Feel guilty: Never I'd be better off : Never Frustrated: Sometimes Difficulty finding pleasure: Never Total NDDI-E Score: 8 ANDREW 7 Anxiety Screen 09/09/2021 Feeling nervous, anxious or on edge More than half the days Not being able to stop or control worrying Nearly every day Worrying too much about different things Nearly every day Trouble relaxing Nearly every day Being so restless that it is hard to sit still Nearly every day Becoming easily annoyed or irritable More than half the days Feeling afraid as if something awful might happen More than half the days ANDREW-7 Total Score 18 If you checked off any problems, how difficult have these problems made it for you to do your work,take care of things at home, or get along with other people? Somewhat difficult No flowsheet data found. Physical Exam Vitals: 09/09/21 1421 BP: 116/84 Pulse: 77 Temp: 97.1 degrees F (36.2 degrees C) TempSrc: Infrared Weight: 91.4 kg (201 lb 9.6 oz) Body mass index is 31.58 kg/m . General: alert, cooperative, no distress, appears stated age Mental status: alert; oriented; good attention Speech/language: fluent; comprehension intact CRANIAL NERVES CN II-XII: grossly intact Motor: Normal bulk and tone. No pronator drift. Strength 5/5 EE, EF, KE, KF Reflexes: not tested Coordination: Ohhdny-bh-liub intact bilaterally. Sensation: not tested Gait: Normal stride length, arm swing, and base width. Neurodiagnostic and Imaging LABS: Lab Results Component Value Date LAMOTRIGINE 1.9 (L) 12/12/2018 Lab Results Component Value Date WBC 12.23 (H) 10/21/2019 HGB 13.5 10/21/2019 MCV 86.9 10/21/2019 HCT 41.7 10/21/2019 PLATELET 255 10/21/2019 Lab Results Component Value Date SODIUM 140 09/03/2021 POTASSIUM 4.0 09/03/2021 CHLORIDE 105 09/03/2021 CO2 28 09/03/2021 BUN 8 09/03/2021 CREATSERUM 0.72 09/03/2021 GLUCOSE 90 09/03/2021 CALCIUM 9.6 09/03/2021 MAGNESIUM 2.0 09/13/2018 Lab Results Component Value Date TP 5.2 (L) 09/17/2018 ALBUMIN 2.3 (L) 09/17/2018 BILITOTAL 0.5 09/17/2018 BILIDIRECT 0.5 (H) 09/12/2018 ALKPHOS 123 10/02/2018 ALT 48 10/02/2018 AST 31 10/02/2018 LIPASE 8 (L) 09/12/2018 Assessment and Plan Assessment/Plan: Isidra is a 35 y.o. female with The encounter diagnosis was Generalized idiopathic epilepsy and epileptic syndromes, not intractable, without status epilepticus. who has been well controlled since December 2019 with no difficulties with her medications. She is currently on Depo with last administration 09/03/21. 1. Generalized idiopathic epilepsy and epileptic syndromes, not intractable, without status epilepticus - will continue lamotrigine 150 mg BID and send PNV with FA 1 mg daily. Obtain baseline lamotriginelevel - Vit-Fe Fumarate-FA ( Plus) 27-1 MG tablet; Take 1 tablet by mouth daily. Dispense: 30 tablet; Refill: 11 - lamoTRIgine 150 MG tablet; Take 1 tablet by mouth 2 times daily. Dispense: 60 tablet; Refill: 11 - LAMOTRIGINE LEVEL; Future - The best predictor of seizure freedom during is seizure freedom prior to . Women who are seizure free in the 9 months prior to have an 84-92% chance of remaining seizure free during the on their current regimen. - She is aware that she should tell me the moment that she is trying to conceive so we can get updated lamotrigine levels (for our target dose) and once she is , we will need to monitor theselevels on a monthly basis. - The risk of teratogenicity associated with these anti-epileptic medications were discussed with the patient. She has accepted these terms and is willing to start the medication. The patient was instructed that she should set up an appointment with the epilepsy department if she plans to get so we can optimize her medications prior to conception. A supplemental PNV with FA was ordered. - We discussed factors that lower seizure threshold including non-adherence, extreme temperature changes, sleep deprivation, acute illness, decongestants, stress, fatigue and others. Missing doses ofyour seizure meds can cause breakthrough seizures. - We discussed driving restrictions and she is not restricted. She is aware of the need to be seizure free for six months prior to driving if she experiences a breakthrough seizure with loss of consciousness or impaired awareness. She was informed of the risk of injury and associated with driving with uncontrolled seizures. She verbalized an understanding. - We reviewed the following safety issues: occupation/work related injuries including not to work in close proximity of machines with moving parts, not to work in high places, bathing/swimming, falls/injury prevention, and risk for skin jesus. We reviewed seizure first aid, seizure rescue medications and when to call . We discussed seizure first aid: Generally speaking, emergency staff should be notified for seizure activity lasting longer than 5 minutes. Encouraged use of e[employer] to send messages to provider as needed for questions and concerns or can call our clinic @ [phone]. She will return in [address] Saldaña or sooner if clinically indicated. Signed, Dipika Dacosta MSN, ETIQUETTE COACH-DEVELOPMENT TECHNICIAN [facility] Department of Neurology - Epilepsy Division [address] [place] [address] - 7th floor [place] [address] Pager: [phone] Time to complete visit: I spent approximately 22 minutes reviewing the chart prior to the appointment, in face to face counseling with the patient, and with documentation after the visit. [facility] History of Present illness Narrative* Arlene Lerma RN - 09/03/2021 2:00 PM EDT Isidra Zaldivar is a 35 y.o. here for Depo-Provera Injection. Pt current with Depo Injections: No test POCT: Negative Reviewed: Pt advised that irregular bleeding is normal side effect of DMPA. Pt advised that bleeding usually decreases or stops after repeated injections. Current on annual: Yes [facility] Miscellaneous Notes* Addendum Note - Arlene Lerma RN - 09/03/2021 2:00 PM EDTAddended by: ARLENE LERMA on: 09/03/2021 02:10 PM Modules accepted: [facility]* Addendum Note - Arlene Lerma RN - 09/03/2021 2:00 PM EDTAddended by: ARLENE LERMA on: 09/03/2021 02:10 PM Modules accepted: [facility] Hospital Discharge instructions ED Discharge Education Evaluation from 08/28/2021 5:52 PM: * Discharge Instruction : Patient/Significant Other Verbalized Understanding of Discharge Instructions,Reviewed Discharge Instructions with Patient/Significant Other * Educ Topic #1 : Activity * Barriers to Learning : No Barriers * Teaching Method : Reading Materials * Evaluation Method : Verbal Patient Transfer Information from 08/28/2021 1:40 PM: * LOC : Alert Physician Follow-up Plan/Appointments from 08/28/2021 5:32 PM: * Patient stated Primary Care Provider : PCP, NONE (PCP) ([facility] [id number]) - Medical S 08-05-2021 History of Present illness Narrative* Tonya Cervantes RN - 12/10/2020 3:30 PM EDT Isidra Zaldivar is a 35 y.o. here for Depo-Provera Injection. Pt current with Depo Injections: Depo restart, pt has brought own RX of Depo test POCT: Negative, pt states no intercourse in last 2 weeks. Reviewed: Pt advised that irregular bleeding is normal side effect of DMPA. Pt advised that bleeding usually decreases or stops after repeated injections., Pt counseled on calcium nutrition and weight bearing exercises., Stressed importance of being on time for injections ~3 months (12-14 weeks)., Calcium Intake education handout provided., Patient counseled to abstain from sex or use condoms fornext two weeks. , Pt verbalizes understanding. Current on annual: Yes Per Dr. Naren Chaparro, she does not need to see pt, Depo injection can be given and pt discharged. documented [facility] note S Evaluation + Plan note Future Appointments Appointment Date:12/28/2021 03:30:00 PM Scheduled Provider:OLMAN SON DO Location:[facility] Appointment Type:PC Wellness Annual [facility] Evaluation + Plan note Future Appointments Appointment Date:02/08/2022 03:00:00 PM Scheduled Provider:OLMAN SON DO Location:[facility] Appointment Type:PC OV Follow Up Future Scheduled Tests Radiology* US Thyroid 12/28/21 [facility] Evaluation + Plan note Future Appointments Appointment Date:02/08/2022 03:00:00 PM Scheduled Provider:OLMAN SON DO Location:[facility] Appointment Type:PC OV Follow Up [facility] [employer] + Plan note Future Appointments Appointment Date:08/02/2022 02:30:00 PM Scheduled Provider:OLMAN SON DO Location:[facility] Appointment Type:PC OV [facility] Evaluation + Plan note Future Appointments Appointment Date:11/29/2022 03:30:00 PM Scheduled Provider:OLMAN SON DO Location:[facility] Appointment Type:PC OV Future Scheduled Tests Laboratory* Folate Level 10/11/22 * Complete Blood Count 10/11/22 * Lipid Profile 10/11/22 * Vitamin D Level 10/11/22 * Complete Metabolic Panel 10/11/22 [facility] Evaluation + Plan note Future Appointments Appointment Date:11/29/2022 03:30:00 PM Scheduled Provider:OLMAN SON DO Location:[facility] Appointment Type: OV [facility] Evaluation + Plan note Future Appointments Appointment Date:02/24/2023 02:00:00 PM Scheduled Provider:OLMAN SON DO Location:[facility] Appointment Type:PC OV [facility] Evaluation + Plan note Future Appointments Appointment Date:03/16/2023 10:30:00 AM Scheduled Provider:ROXANE GLEZ PA-C Location:[facility] Appointment Type:PC OV Appointment Date:05/25/2023 04:30:00 PM Scheduled Provider:OLMAN SON DO Location:[facility] Appointment Type: OV [facility] evaluation + Plan note Future Appointments Appointment Date:03/22/2023 01:00:00 PM Scheduled Provider:OLMAN SON DO Location:[facility] Appointment Type:PC OV ED Follow Up Appointment Date:05/25/2023 04:30:00 PM Scheduled Provider:OLMAN SON DO Location:[facility] Appointment Type:PC OV [facility] Evaluation + Plan note Future Appointments Appointment Date:07/06/2023 03:30:00 PM Scheduled Provider:OLMAN SON DO Location:[facility] Appointment Type:PC OV [facility] Evaluation + Plan note Future Appointments Appointment Date:10/18/2023 02:00:00 PM Scheduled Provider:OLMAN SON DO Location:[facility] Appointment Type:PC Wellness Annual Future Scheduled Tests Laboratory* Basic Metabolic Panel 08/18/23 * Vitamin B12 Level 08/18/23 Radiology* CT Coronary Extracardiac 09/09/23 [facility] Evaluation + Plan note Future Appointments Appointment Date:09/18/2024 09:30:00 AM Scheduled Provider:GEOFFREY HUTTON Location:[facility] Appointment Type:CV OV Future Scheduled Tests Radiology* CT Coronary Extracardiac 09/09/23 [facility] Evaluation + Plan note Future Appointments Appointment Date:03/07/2024 11:00:00 AM Scheduled Provider:OLMAN SON DO Location:[facility] Appointment Type:PC OV Appointment Date:09/18/2024 09:30:00 AM Scheduled Provider:GEOFFREY HUTTON Location:[facility] Appointment Type:CV OV Future Scheduled Tests Radiology* CT Coronary Extracardiac 09/09/23 [facility] Evaluation + Plan note Future Appointments Appointment Date:05/09/2024 03:30:00 PM Scheduled Provider:OLMAN SON DO Location:[facility] Appointment Type:PC OV Appointment Date:09/18/2024 09:30:00 AM Scheduled Provider:GEOFFREY HUTTON Location:[facility] Appointment Type:CV OV Future Scheduled Tests Radiology* CT Coronary Extracardiac 09/09/23 [facility] evaluation + Plan note Future Appointments Appointment Date:08/15/2024 01:30:00 PM Scheduled Provider:OLMAN SON DO Location:[facility] Appointment Type:PC OV Appointment Date:09/18/2024 09:30:00 AM Scheduled Provider:GEOFFREY HUTTON Location:[facility] Appointment Type:CV OV Future Scheduled Tests Radiology* CT Coronary Extracardiac 09/09/23 [facility] Evaluation + Plan note Future Appointments Appointment Date:09/18/2024 09:30:00 AM Scheduled Provider:GEOFFREY HUTTON Location:[facility] Appointment Type:CV OV Appointment Date:10/22/2024 03:30:00 PM Scheduled Provider:OLMAN SON DO Location:[facility] Appointment Type:PC Wellness Annual Future Scheduled Tests Radiology* CT Coronary Extracardiac 09/09/23 [facility] Evaluation note* Diagnosis Encounter for contraceptive management, unspecified type- Primary documented in this encounter [facility] note* Diagnosis Encounter for Depo-Provera contraception Surveillance of other previously prescribed contraceptive method Medication management Encounter for other specified aftercare Nocturia documented in this encounter [facility] note* Diagnosis Generalized idiopathic epilepsy and epileptic syndromes, not intractable, without status epilepticus- Primary documented in this encounter [facility] note* Diagnosis Breakthrough bleeding on Depo-Provera- Primary Encounter for management and injection of depo-Provera Surveillance of other previously prescribed contraceptive method documented in this encounter [facility] note* Diagnosis Encounter for gynecological examination (general) (routine) without abnormal findings- Primary Screening for cervical cancer Screening for malignant neoplasm of the cervix Encounter for screening for human papillomavirus (HPV) Special screening examination for human papillomavirus (HPV) Asymptomatic varicose veins of right lower extremity Asymptomatic varicose veins documented in this encounter [facility] note* Diagnosis Cervical high risk HPV (human papillomavirus) test positive- Primary Cervical high risk human papillomavirus (HPV) DNA test positive documented in this encounter [facility] note* Diagnosis Encounter for management and injection of depo-Provera- Primary Surveillance of other previously prescribed contraceptive method [facility] Diagnosis Median arcuate ligament syndrome (HCC)- Primary Celiac artery compression syndrome Asymptomatic varicose veins of right lower extremity Asymptomatic varicose veins Venous (peripheral) insufficiency Unspecified venous (peripheral) insufficiency [facility] Diagnosis Onset Date Resolution Status Left anterior knee pain acut e Abnormal weight loss acute Lois's thyroiditis acut e [facility] Work Phone: Evaluation note* Diagnosis Urinary urgency- Primary Urgency of urination [facility] Diagnosis Onset Date Resolution Status Left anterior knee pain acut e Abnormal weight loss acute Lois's thyroiditis acut e Abnormal weight loss acute [facility] Work Phone: Evaluation note* Diagnosis Symptomatic varicose veins of both lower extremities- Primary Varicose veins of lower extremities with other complications [facility] Diagnosis Onset Date Resolution Status Abnormal weight loss acute Lois's thyroiditis acut e Abnormal weight loss acute Epilepsy chronic Learning disability chronic [facility] Work Phone: Evaluation note* Diagnosis Onset Date Resolution Status Abnormal weight loss acute Lois's thyroiditis acut e Abnormal weight loss acute Epilepsy chronic Learning disability chronic Left anterior knee pain acut e [facility] Work Phone: Evaluation note* Diagnosis Breakthrough bleeding on Depo-Provera- Primary Abnormal uterine bleeding (AUB) Encounter for management and injection of depo-Provera Surveillance of other previously prescribed contraceptive method [facility] Diagnosis Onset Date Resolution Status Lois's thyroiditis acut e Abnormal weight loss chronic Abnormal weight loss chronic Epilepsy chronic Learning disability chronic Left anterior knee pain acut e Cancer antigen 125 (CA 125) elevation acute Hepatomegaly acute Abdominal pressure chronic Abnormal weight loss chronic [facility] Work Phone: Evaluation note* Diagnosis Onset Date Resolution Status Abnormal weight loss chronic Epilepsy chronic Learning disability chronic Left anterior knee pain acut e Cancer antigen 125 (CA 125) elevation acute Hepatomegaly acute Abdominal pressure chronic Abnormal weight loss chronic [facility] Work Phone: Evaluation note* Diagnosis Enuresis- Primary Urinary urgency Urgency of urination Urinary incontinence, mixed Mixed incontinence urge and stress (male)(female) [facility] Diagnosis Encounter for management and injection of depo-Provera- Primary Surveillance of other previously prescribed contraceptive method [facility] Diagnosis Encounter for management and injection of depo-Provera- Primary Surveillance of other previously prescribed contraceptive method [facility] Diagnosis Encounter for gynecological examination (general) (routine) without abnormal findings- Primary Surveillance for Depo-Provera contraception Surveillance of other previously prescribed contraceptive method Screening for cervical cancer Screening for malignant neoplasm of the cervix Encounter for screening for human papillomavirus (HPV) Special screening examination for human papillomavirus (HPV) Need for prophylactic vaccination/inoculation against viral disease Need for prophylactic vaccination and inoculation against other viral diseases [facility] Diagnosis Onset Date Resolution Status Lois's thyroiditis acut e Fatigue acute Epilepsy chronic Bloating acute Constipation acute Weight loss acute Gallstones chronic Fatigue acute [facility] Work Phone: Evaluation note* Diagnosis Onset Date Resolution Status Bloating acute Constipation acute Weight loss acute Gallstones chronic Fatigue chronic Fatigue chronic Fatigue chronic Abdominal pain, epigastric a cute Gastric reflux acute [facility] Work Phone: Evaluation note* Diagnosis Well woman exam with routine gynecological exam- Primary Routine gynecological examination Enuresis Overactive bladder Hypertonicity of bladder [facility] Diagnosis Breakthrough bleeding on Depo-Provera Abnormal uterine bleeding (AUB) [facility] Diagnosis Onset Date Resolution Status Epilepsy chronic Fatigue chronic Fatigue chronic Shortness of breath noneacti ve [facility] Work Phone: Evaluation note* Diagnosis Need for prophylactic vaccination/inoculation against viral disease- Primary Need for prophylactic vaccination and inoculation against other viral diseases Encounter for management and injection of depo-Provera Surveillance of other previously prescribed contraceptive method [facility] Diagnosis Mixed stress and urge urinary incontinence- Primary Mixed incontinence urge and stress (male)(female) Enuresis [facility] Diagnosis Encounter for management and injection of depo-Provera- Primary Surveillance of other previously prescribed contraceptive method [facility] Diagnosis Surveillance for Depo-Provera contraception Surveillance of other previously prescribed contraceptive method [facility] Diagnosis Surveillance for Depo-Provera contraception- Primary Surveillance of other previously prescribed contraceptive method [facility] Diagnosis Encounter for management and injection of depo-Provera- Primary Surveillance of other previously prescribed contraceptive method [facility] Diagnosis Encounter for gynecological examination (general) (routine) without abnormal findings- Primary Surveillance for Depo-Provera contraception Surveillance of other previously prescribed contraceptive method Screening for cervical cancer Screening for malignant neoplasm of the cervix Encounter for screening for human papillomavirus (HPV) Special screening examination for human papillomavirus (HPV) [facility] Diagnosis Encounter for management and injection of depo-Provera- Primary Surveillance of other previously prescribed contraceptive method [facility] Diagnosis Mixed stress and urge urinary incontinence- Primary Mixed incontinence urge and stress (male)(female) Gastroesophageal reflux disease, unspecified whether esophagitis present Enuresis [facility] Diagnosis Depo-Provera contraceptive status- Primary Surveillance of other previously prescribed contraceptive method documented in this encounter [facility] note* Diagnosis Encounter to establish care- Primary Reserved for inherently not codable concepts WITHOUT codable children Unintentional weight loss Loss of weight Bipolar 2 disorder Other bipolar disorders Need for dental care Moderate cigarette smoker Tobacco use disorder documented in this encounter [facility] Work Phone: Evaluation note* Diagnosis Encounter for management and injection of depo-Provera- Primary Surveillance of other previously prescribed contraceptive method [facility] Diagnosis Encounter to establish care- Primary Reserved for inherently not codable concepts WITHOUT codable children Unintentional weight loss Loss of weight Bipolar 2 disorder Other bipolar disorders Need for dental care Moderate cigarette smoker Tobacco use disorder Pelvic floor weakness in female- Primary Other specified genital prolapse Mixed stress and urge urinary incontinence Mixed incontinence urge and stress (male)(female) Enuresis Constipation, unspecified constipation type [facility] Narrative No data available for this section [facility] Discharge instructions No data available for this section [facility] Progress note No data available for this section [facility] Reason for referral (narrative)* Outpatient Procedure (Routine) - Closed Specialty Diagnoses / Procedures Referred By Contac t Referred To [facility] Diagnoses Median arcuate ligament syndrome (HCC) Procedures US MESENTERIC ARTERY CMPLT VAS LAB DUP-SCAN ARTL OLIMPIA ABDL/PEL/SCROT&/RPR ORGN COM Laquita Sweeney DO [address] [place] [address] [facility] [place] [address] Referral ID Status Reason Start Date Expiration Date V isits Requested Visits Authorized [id number] Closed Auto-Generate d Referral 02/15/2022 02/15/2023 1 1 * Outpatient Procedure (Routine) - Closed Specialty Diagnoses / Procedures Referred By Contac t Referred To Contact [facility] [place] Diagnoses Asymptomatic varicose veins of right lower extremity Procedures US VENOUS INCOMPETENCY DEON VAS LAB DUP-SCAN XTR VEINS COMPLETE BILATERAL STUDY Laquita Sweeney DO [address] [place] [address] [facility] [place] [address] Referral ID Status Reason Start Date Expiration Date V isits Requested Visits Authorized [id number] Closed Auto-Generate d Referral 02/15/2022 02/15/2023 1 1 [facility] for referral (narrative)* Diagnostic Procedure Only (Routine) - Pending Review Specialty Diagnoses / Procedures Referred By Contac t Referred To Contact US IMAGING Diagnoses Breakthrough bleeding on Depo-Provera Abnormal uterine bleeding (AUB) Procedures US FEMALE PELVIS TRANSVAG US TRANSVAGINAL Trang Mcclain APRN.DEVELOPMENT TECHNICIAN [address] [place] [address] Us Imaging Referral ID Status Reason Start Date Expiration Date Visits Requested Visits Authorized [id number] Pending Review Auto-Generat ed Referral 07/07/2022 08/06/2023 1 1 [facility] for referral (narrative)* Diagnostic Procedure Only (Routine) - Closed Specialty Diagnoses / Procedures Referred By Contac t Referred To Contact US IMAGING Diagnoses Breakthrough bleeding on Depo-Provera Abnormal uterine bleeding (AUB) Procedures US FEMALE PELVIS TRANSVAG US TRANSVAGINAL Trang Mcclain APRN.DEVELOPMENT TECHNICIAN [address] [place] [address] Us Imaging [facility] Referral ID Status Reason Start Date Expiration Date V isits Requested Visits Authorized [id number] Closed Auto-Generate d Referral 07/07/2022 08/06/2023 1 1 [facility] for referral (narrative)* Consultation (Routine) - New Request Specialty Diagnoses / Procedures Referred By Contac t Referred To Contact Gastroenterology Diagnoses Gastroesophageal reflux disease, unspecified whether esophagitis present Mike Quiros MD [address] [place] [address] [address] [place] [address] Referral ID Status Reason Start Date Expiration Date V isits Requested Visits Authorized [id number] New Request 03/13/2024 04/07/2025 1 1 [facility] note* UMAIR Soriano: PERFORM Event Display: Patient Summary Documents Authored Date: [id number] [facility] Summary Purpose Family History No Family History Records Found Relationship Condition Age at Onset Recorded Date/T tramaine mother Chronic obstructive pulmonary disease Unk nown Advance Directives No Advanced Directives Records FoundLatest Code Status on File Code Status Date Activated Date Inactivated Comments Full Code 01/30/2019 5:52 AM 01/30/2019 5:30 PM Full Code 09/18/2018 10:04 PM 01/30/2019 5:52 AM Full Code 09/11/2018 5:02 PM 09/18/2018 10:04 PM Latest Code Status on File Code Status Date Activated Date Inactivated Comments Full Code 01/30/2019 5:52 AM 01/30/2019 5:30 PM Full Code 09/18/2018 10:04 PM 01/30/2019 5:52 AM Full Code 09/11/2018 5:02 PM 09/18/2018 10:04 PM Latest Code Status on File Code Status Date Activated Date Inactivated Comments Full Code 01/30/2019 5:52 AM 01/30/2019 5:30 PM Code Status History Code Status Date Activated Date Inactivated Comments Full Code 09/18/2018 10:04 PM 01/30/2019 5:52 AM Full Code 09/11/2018 5:02 PM 09/18/2018 10:04 PM Advance Directive Response Recorded Date/ Time Living Will No June 10 10:55am Power of Ticket Speculator No June 10, 2022 10:55am Advance Directive Response Recorded Date/ Time Living Will No June 10 11:55am Power of Ticket Speculator No June 10, 2022 11:55am Advance Directive Response Recorded Date/ Time Living Will No December 27 12:34pm Power of Ticket Speculator No December 27 023 12:34pm Advance Directive Response Recorded Date/ Time Living Will No December 27 3 11:34am Power of Ticket Speculator No December 27, 2 023 11:34am Date Activated Date Inactivated Comments 01/30/2019 5:52 AM 01/30/2019 5:30 PM Date Activated Date Inactivated Comments 09/18/2018 10:04 PM 01/30/2019 5:52 AM Date Activated Date Inactivated Comments 09/11/2018 5:02 PM 09/18/2018 10:04 PM Assessments Note DICTATED BY: PRICILA MENG MD DATE OF ADMISSION: 08/15/2018 CHIEF COMPLAINT: Loss of consciousness, hypokalemia, abnormal EKG, 16 weeks . HISTORY OF PRESENT ILLNESS: This is a 32-year-old female who has past medical history significant for seizure disorder and a psychiatric history of schizophrenia. She is currently on no medications because she was taken off due to becoming . She was not trying to become , she was on the Depo shot she tells me, but she still became anyways. She was following up with the OB Clinic today for an appointment. She apparently was working outside earlier today and lost consciousness and the neighbor found her down on the ground. The patient is unable to tell me how long she was outside on the ground and no family was present to give history She states she did not bite her tongue or lose control of her bladder. [facility] today for this. She was seen by the [facility] physician. They performed (more content not included)... Note Patient: ISIDRA ZALDIVAR Monica Anderson RN: ([facility])-[id number] [facility]: [phone] Age: 32 years Sex: Female : 1985 Associated Diagnoses: None Author: Nash Le MD Supervising Physician Comments Documentation By: Consulting Physician. Health Status Allergies Allergic Reactions (All) Severity Not Documented Phenergan- Rash. Medication List (Selected) Inpatient Medications Ordered Atropine 0.1 mg/mL Syringe 10 mL: 0.5 mg, IV Push, Q3min, PRN: See Comments Communication Order - Pharmacy.: 1 Each, Comm, Communication Lactated Ringers 1,000 mL: 100 mL/hr, IV, Stop: 09/15/18 9:46:00 EDT Nitrostat*: 0.4 mg, Subl, Q5min, PRN: See Comments Potassium Chloride Tab Sustained Release: 40 mEq, PO, Q1h Multivitamin: 1 Tab, PO, Daily Tylenol*: 650 mg, PO, Q4h, PRN: Pain-Mild/Fever greater than 100.4 (38C) Tylenol*: 650 mg, Rectal, Q4h, PRN: Pain-Mild/Fever greater than 100.4 (38C) Unasyn: 3 Gm, 200 mL/hr, IVPB, Q8h Zofran Inj*: 4 mg, IV Push, Q6h, PRN: See Comments Prescriptions Prescribed Zof (more content not included)... Note DICTATED BY:DAKOTA SHAY MD SERVICE DATE:08/16/2018 REASON FOR CONSULTATION: We are asked to see the patient by Dr. Le regarding schizophrenia. HISTORY OF PRESENT ILLNESS: The patient is a 32-year-old white female who lives with her in [place]. She is 16 weeks with her first child. The patient had been at the OB Clinic for an appointment. Earlier in the day, she had been outside doing something and lost consciousness. Neighbor found her on the ground. It was unclear how long she was down. The patient has a history of schizophrenia and seizures. She was taken off of all of her medications when it was found that she was . The patient was seen in her room. She had been moved to the CCU. She did have some EKG abnormalities and was undergoing a syncope workup. The patient was seen in her room. She was sitting up. She looks disheveled and is a little disorganized, but was cooperative and able to answer questions. She indicated that she is always depres (more content not included)... Diagnosis Radiculopathy of cervical re gion Diagnosis Hyperemesis gravidarum- Primary Mild hyperemesis gravidarum, unspecified as to episode of care Acute UTI Urinary tract infection, site not specified Diagnosis Hyperemesis gravidarum- Primary Mild hyperemesis gravidarum, unspecified as to episode of care Diagnosis Nausea and vomiting, intractability of vomiting not specified, unspecified vomiting type- Primary First trimester state, incidental Discharge Instructions * Attachments The following attachments cannot be sent through Care Everywhere. * : UTI (Urinary Tract Infection) (Tristanian) * : Hyperemesis Gravidarum (Tristanian) in this encounter* Attachments The following attachments cannot be sent through Care Everywhere. * : Hyperemesis Gravidarum (Tristanian) in this encounter* Attachments The following attachments cannot be sent through Care Everywhere. * : When to Call (Up to 20 Weeks): General Info (Tristanian) * Nausea and Vomiting (Tristanian) in this encounter Hospital Course Note EMERGENCY DEPARTMENT DISCHAR GE SUMMARY PATIENT NAME:ISIDRA ZALDIVAR MRN: ([id number] AGE: 32 Years SEX: Female PHONE:[phone] DOS: 08/12/2018 11:10 AM : 1985 ATTENDING PHYSICIAN:Physician, Emergency PCP: Physician, No PCP CHIEF COMPLAINT: vomitting Allergies Phenergan (Rash) Problems Active Asthma Seizure Schizophrenia, acute DISCHARGE DIAGNOSIS: DISCHARGE INSTRUCTIONS: ED PHYSICIAN DOCUMENTATION: DISPOSITION: Time of Departure From ER 08/12/2018 11:22 Discharge/Transfer From ER Labor and delivery MEDICATION LISTS: CURRENT MEDICATION LIST metoclopramide (Reglan) MEDICATIONS GIVEN DURING MEDICAL VISIT None LAB RESULTS: RADIOLOGY: FOLLOW UP: Note CLINICAL SUMMARY Please take this summary document to your follow up appointments. [facility] 08/12/18 20:44 [address] [place]. [address] PATIENT INFORMATION Name: KAYLANISIDRA GLOVER Address: [address] [place] [address] [address] [address] Age: 32 Years Phone: [phone] : 1985 12:[birth year] MRN: [facility])-[id number] Sex: Female Race: White Ethnicity: Not Hispan/Lat Admitted From: [facility] Medical Service: Obstetric Nurse Unit/Bed: ([place]) [facility] [id number] Admit Date: 08/12/2018 11:28 PCP: Physician, No PCP PHYSICIANS INVOLVED WITH CARE Attending Physicians: Chio Bashir MD - Obstetrics, Gynecology Admitting Physician: None found Primary Care Physician:Physician, No PCP,Family Practice,Internal Medicine,, - Consults: None found Problems Active (04/25/2018) Asthma Seizure Schizophrenia, acute Allergies (more content not included)... Note CLINICAL SUMMARY Please take this summary document to your follow up appointments. [facility] 08/19/18 14:08 [address] [place]. [address] PATIENT INFORMATION Name: ISIDRA ZALDIVAR Address: [address] [facility] [address] Age: 32 Years Phone: [phone] : 1985 12:[birth year] MRN: ([facility])-[id number] Sex: Female Race: White Ethnicity: Not Hispan/Lat Admitted From: [facility] Medical Service: Obstetric Nurse Unit/Bed: ([place]) [facility] [id number] Admit Date: 08/15/2018 18:49 PCP: Physician, PCP Unknown PHYSICIANS INVOLVED WITH CARE Attending Physicians: Rod PICKERING , Ermias - Obstetrics Admitting Physician: Rod PICKERING , Ermias - Obstetrics Primary Care Physician:Physician, PCP Unknown,Family Practice,,, - Consults: Antwon PICKERING , Roxy Bright - CardBull Disease Red PICKERING , Dakota Cole Psychiatry Yonathan PICKERING , Kamala M - Apprentice Funeral Director (more content not included)... Note CLINICAL SUMMARY Please take this summary document to your follow up appointments. [facility] 08/19/18 20:[address] [place] [address]. [address] PATIENT INFORMATION Name: ISIDRA ZALDIVAR Address: [address] [place] [address] Age: 32 Years Phone: [phone] : 1985 12:[birth year] MRN: [facility])-[id number] Sex: Female Race: White Ethnicity: Not Hispan/Lat Admitted From: [facility] Medical Service: Obstetric Nurse Unit/Bed: ([place]) [facility] Admit Date: 08/19/2018 19:48 PCP: Physician, PCP Unknown PHYSICIANS INVOLVED WITH CARE Attending Physicians: None found Admitting Physician: None found Primary Care Physician:Physician, PCP Unknown,Family Practice,,, - Consults: None found Problems Active Bipolar disorder Seizure (04/25/2018) Asthma Seizure Schizophrenia, acute Allergies Phenergan (Rash) Procedu (more content not included)... Note CLINICAL SUMMARY Please take this summary document to your follow up appointments. [facility] 08/28/18 15:51 [facility] [place]. [address] PATIENT INFORMATION Name: ISIDRA ZALDIVAR Address: [address] [place] [address] Age: 32 Years Phone: [phone] : 1985 12:[birth year] MRN: [id number] Sex: Female Race: White Ethnicity: Not Hispan/Lat Admitted From: [facility] Medical Service: Obstetric Nurse Unit/Bed: ([place]) [facility] [id number] Admit Date: 08/27/2018 16:34 PCP: Physician, PCP Unknown PHYSICIANS INVOLVED WITH CARE Attending Physicians: Shimon Chu MD - Obstetrics Admitting Physician: Shimon Mccarthy MD - Gynecology, Obstetrics Primary Care Physician:Physician, PCP Unknown,Family Practice,,, - Consults: None found DIAGNOSES: Hypokalemia Problems Active Scoliosis Heart valve disorde (more content not included)... Note CLINICAL SUMMARY Please take this summary document to your follow up appointments. N[facility]stor Fournier 09/03/18 05:33 [address] [place]. [address] PATIENT INFORMATION Name: ISIDRA ZALDIVAR Address: [address] [place] [address] Age: 32 Years Phone: [phone] : 1985 12:[birth year] MRN: [id number] Sex: Female Race: White Ethnicity: Not Hispan/Lat Admitted From: [facility] Medical Service: Obstetric Nurse Unit/Bed: ([place]) [facility] [id number] Admit Date: 09/02/2018 23:16 PCP: Physician, No PCP PHYSICIANS INVOLVED WITH CARE Attending Physicians: JASMIN Price MD [place] - Obstetrics, Gynecology Admitting Physician: None found Primary Care Physician:Physician, No PCP,Family Practice,Internal Medicine,, - Consults: None found Problems Active Scoliosis Heart valve disorder Hypokalemia Bipolar disorder Seizure Pre (more content not included)... Note DICTATED BY: PRICILA MENG MD DATE OF ADMISSION: 08/15/2018 CHIEF COMPLAINT: Loss of consciousness, hypokalemia, abnormal EKG, 16 weeks . HISTORY OF PRESENT ILLNESS: This is a 32-year-old female who has past medical history significant for seizure disorder and a psychiatric history of schizophrenia. She is currently on no medications because she was taken off due to becoming . She was not trying to become , she was on the Depo shot she tells me, but she still became anyways. She was following up with the OB Clinic today for an appointment. She apparently was working outside earlier today and lost consciousness and the neighbor found her down on the ground. The patient is unable to tell me how long she was outside on the ground and no family was present to give history She states she did not bite her tongue or lose control of her bladder. She [facility] into the [facility] today for this. She was seen by the [facility] physician. They performed (more content not included)... Note Patient: ISIDRA ZALDIVAR Monica RN: ([facility])-[id number] Age: 32 years Sex: Female : 1985 Associated Diagnoses: None Author: Nash Le MD Supervising Physician Comments Documentation By: Consulting Physician. Health Status Allergies Allergic Reactions (All) Severity Not Documented Phenergan- Rash. Medication List (Selected) Inpatient Medications Ordered Atropine 0.1 mg/mL Syringe 10 mL: 0.5 mg, IV Push, Q3min, PRN: See Comments Communication Order - Pharmacy.: 1 Each, Comm, Communication Lactated Ringers 1,000 mL: 100 mL/hr, IV, Stop: 09/15/18 9:46:00 EDT Nitrostat*: 0.4 mg, Subl, Q5min, PRN: See Comments Potassium Chloride Tab Sustained Release: 40 mEq, PO, Q1h Multivitamin: 1 Tab, PO, Daily Tylenol*: 650 mg, PO, Q4h, PRN: Pain-Mild/Fever greater than 100.4 (38C) Tylenol*: 650 mg, Rectal, Q4h, PRN: Pain-Mild/Fever greater than 100.4 (38C) Unasyn: 3 Gm, 200 mL/hr, IVPB, Q8h Zofran Inj*: 4 mg, IV Push, Q6h, PRN: See Comments Prescriptions Prescribed Zof (more content not included)... Note DICTATED BY:DAKOTA SHAY MD SERVICE DATE:08/16/2018 REASON FOR CONSULTATION: We are asked to see the patient by Dr. Le regarding schizophrenia. HISTORY OF PRESENT ILLNESS: The patient is a 32-year-old white female who lives with her in [place]. She is 16 weeks with her first child. The patient had been at the OB Clinic for an appointment. Earlier in the day, she had been outside doing something and lost consciousness. Neighbor found her on the ground. It was unclear how long she was down. The patient has a history of schizophrenia and seizures. She was taken off of all of her medications when it was found that she was . The patient was seen in her room. She had been moved to the CCU. She did have some EKG abnormalities and was undergoing a syncope workup. The patient was seen in her room. She was sitting up. She looks disheveled and is a little disorganized, but was cooperative and able to answer questions. She indicated that she is always depres (more content not included)... Reason for Referral Specialty Diagnoses / Procedures Referred By Reymundo lantigua Referred To Contact Diagnoses Generalized idiopathic epilepsy and epileptic syndromes, not intractable, without status epilepticus Dipika Dacosta APRN-DEVELOPMENT TECHNICIAN [address] [place] [address] Referral ID Status Reason Start Date Expiration Date V isits Requested Visits Authorized [id number] Pending Review 1 1 Specialty Diagnoses / Procedures Referred By Reymundo lantigua Referred To Contact Vascular Surgery Diagnoses Asymptomatic varicose veins of right lower extremity Procedures CONSULT TO VASCULAR SURGERY OFFICE/OUTPATIENT [facility] 60-74 MINUTES Trang Mcclain APRN.DEVELOPMENT TECHNICIAN [address] [place] [address] Referral ID Status Reason Start Date Expiration Date Visits Requested Visits Authorized [id number] Authorized PCP Requested Referral 12/08/2021 12/08/2022 1 1 Medications Administered Section Active Administered Medications - up to 3 most recent administrations Medication Order MAR Action Action Date Dose Rate Site medroxyPROGESTERone 150 mg injection (DEPO-PROVERA) 150 mg, INTRAMUSCULAR, EVERY 12 WEEKS, 4 doses, First dose on Mon11/23/21 at 1200, Last dose on Mon08/02/22 at 1200, Hazardous Potential Reproductive Risk Drug: Use appropriate PPE. Given 11/24/2021 2:33 PM EDT 150 mg Buttocks, Right Active Administered Medications - up to 3 most recent administrations Medication Order MAR Action Action Date Dose Rate Site medroxyPROGESTERone 150 mg injection (DEPO-PROVERA) 150 mg, INTRAMUSCULAR, EVERY 12 WEEKS, 4 doses, First dose on Mon11/23/21 at 1200, Last dose on Mon08/02/22 at 1200, Hazardous Potential Reproductive Risk Drug: Use appropriate PPE. Given 02/09/2022 3:46 PM EDT 150 mg Buttocks, Left Given 11/24/2021 2:33 PM EDT 150 mg Bu ttocks, Right Inactive Administered Medications - up to 3 most recent administrations Medication Order MAR Action Action Date Dose Rate Site medroxyPROGESTERone 150 mg injection (DEPO-PROVERA) 150 mg, INTRAMUSCULAR, EVERY 12 WEEKS, 4 doses, First dose on Mon11/23/21 at 1200, Last dose on Mon08/02/22 at 1200, Hazardous Potential Reproductive Risk Drug: Use appropriate PPE. Given 04/27/2022 9:19 AM EST 150 mg Buttocks, Right Given 02/09/2022 3:46 PM EDT 150 mg Bu ttocks, Left Given 11/24/2021 2:33 PM EDT 150 mg Bu ttocks, Right Inactive Administered Medications - up to 3 most recent administrations Medication Order MAR Action Action Date Dose Rate Site medroxyPROGESTERone 150 mg injection (DEPO-PROVERA) 150 mg, INTRAMUSCULAR, ONCE (UP TO 30 DAYS AMB), 1 dose, On Mon07/07/22 at 1200, Hazardous Potential Reproductive Risk Drug: Use appropriate PPE. Given 07/07/2022 11:55 AM EST 150 mg Buttocks, Left Active Administered Medications - up to 3 most recent administrations Medication Order MAR Action Action Date Dose Rate Site medroxyPROGESTERone 150 mg injection (DEPO-PROVERA) 150 mg, INTRAMUSCULAR, EVERY 12 WEEKS, 4 doses, First dose on Mon09/15/22 at 1600, Last dose on Mon05/25/23 at 1600, Hazardous Potential Reproductive Risk Drug: Use appropriate PPE. Given 09/15/2022 4:15 PM EDT 150 mg Buttocks, Right Active Administered Medications - up to 3 most recent administrations Medication Order MAR Action Action Date Dose Rate Site medroxyPROGESTERone 150 mg injection (DEPO-PROVERA) 150 mg, INTRAMUSCULAR, EVERY 12 WEEKS, 4 doses, First dose on Mon09/15/22 at 1600, Last dose on Mon05/25/23 at 1600, Hazardous Potential Reproductive Risk Drug: Use appropriate PPE. Given 11/24/2022 1:59 PM EDT 150 mg Buttocks, Left Given 09/15/2022 4:15 PM EDT 150 mg Bu ttocks, Right Chief Complaint and Reason for Visit Chief Complaint Bilat knees xray L ANT KNEE PAIN/2ND INCONTINENCE. RX HERE Positive Thyroid Antibodies E ORDER Reason for Visit Left anterior knee p ain Abnormal weight loss Lois's thyroiditis Chief Complaint Bilat knees xray Positive Thyroid Antibodies E ORDER WEIGHT LOSS EORDERS L ANT KNEE PAIN/2ND INCONTINENCE. RX HERE Reason for Visit Left anterior knee p ain Abnormal weight loss Lois's thyroiditis Abnormal weight loss Chief Complaint Bilat knees xray Positive Thyroid Antibodies E ORDER WEIGHT LOSS EORDERS L ANT KNEE PAIN/2ND INCONTINENCE. RX HERE ABNORMAL WEIGHT LOSS Reason for Visit Left anterior knee p ain Abnormal weight loss Lois's thyroiditis Abnormal weight loss Chief Complaint Positive Thyroid Ant ibodies E ORDER WEIGHT LOSS EORDERS L ANT KNEE PAIN/2ND INCONTINENCE. RX HERE ABNORMAL WEIGHT LOSS SEIZURES/COGNITIVE ABSENCE SZ, EPILEPSY, LEARNING DISABLITY SOB, CHEST TIGHTNESS Reason for Visit Abnormal weight loss Lois's thyroiditis Abnormal weight loss Epilepsy Learning disability Chief Complaint Positive Thyroid Ant ibodies E ORDER WEIGHT LOSS EORDERS L ANT KNEE PAIN/2ND INCONTINENCE. RX HERE ABNORMAL WEIGHT LOSS SEIZURES/COGNITIVE ABSENCE SZ, EPILEPSY, LEARNING DISABLITY SOB, CHEST TIGHTNESS BILAT KNEES EPILEPSY Reason for Visit Abnormal weight loss Lois's thyroiditis Abnormal weight loss Epilepsy Learning disability Left anterior knee pain Chief Complaint Positive Thyroid Ant ibodies E ORDER WEIGHT LOSS EORDERS L ANT KNEE PAIN/2ND INCONTINENCE. RX HERE ABNORMAL WEIGHT LOSS SEIZURES/COGNITIVE ABSENCE SZ, EPILEPSY, LEARNING DISABLITY SOB, CHEST TIGHTNESS BILAT KNEES EPILEPSY E ORDER 3 MO FU ABDOMINAL PRESSURE Reason for Visit Lois's thyroidi tis Abnormal weight loss Abnormal weight loss Epilepsy Learning disability Left anterior knee pain Cancer antigen 125 (CA 125) elevation Hepatomegaly Abdominal pressure Abnormal weight loss Chief Complaint WEIGHT LOSS EORDERS L ANT KNEE PAIN/2ND INCONTINENCE. RX HERE ABNORMAL WEIGHT LOSS SEIZURES/COGNITIVE ABSENCE SZ, EPILEPSY, LEARNING DISABLITY SOB, CHEST TIGHTNESS BILAT KNEES EPILEPSY E ORDER 3 MO FU ABDOMINAL PRESSURE HEPATOMEGALY Reason for Visit Abnormal weight loss Epilepsy Learning disability Left anterior knee pain Cancer antigen 125 (CA 125) elevation Hepatomegaly Abdominal pressure Abnormal weight loss Chief Complaint 6 M FU 4 M FU GALLBLADDER B12 inject B12 INJECTION Reason for Visit Lois's thyroidi tis Fatigue Epilepsy Bloating Constipation Weight loss Gallstones Fatigue Chief Complaint GALLBLADDER B12 inject B12 INJECTION B12 inject Wants to discuss her concerns with present Reason for Visit Bloating Constipation Weight loss Gallstones Fatigue Fatigue Fatigue Abdominal pain, epigastric Gastric reflux Chief Complaint 6 M FU B12 inject Amb Documentation Shortness of breath SOB SOB Reason for Visit Epilepsy Fatigue Fatigue Shortness of breath Chief Complaint 6 M FU B12 inject Amb Documentation Shortness of breath SOB SOB Shortness of breath Reason for Visit Epilepsy Fatigue Fatigue Shortness of breath Chief Complaint 6 M FU B12 inject Amb Documentation Shortness of breath SOB SOB Shortness of breath CP ABN STRESS CP ABN STRESS Reason for Visit Epilepsy Fatigue Fatigue Shortness of breath Additional Source Comments INFORMATION SOURCE (unrecogn ized section and content) DATE CREATED AUTHOR 11/03/2017 [facility] DATE CREATED AUTHOR AUTHOR'S ORGANIZ ATION 07/25/2018 [facility] DATE CREATED AUTHOR AUTHOR'S ORGANIZ ATION 07/25/2018 [facility] nter DATE CREATED AUTHOR AUTHOR'S ORGANIZ ATION 10/14/2018 [facility] DATE CREATED AUTHOR AUTHOR'S ORGANIZ ATION 06/16/2020 [facility] DATE CREATED AUTHOR AUTHOR'S ORGANIZ ATION 09/21/2020 [facility] DATE CREATED AUTHOR AUTHOR'S ORGANIZ ATION 12/27/2020 [facility] DATE CREATED AUTHOR AUTHOR'S ORGANIZ ATION 09/10/2021 [facility] DATE CREATED AUTHOR AUTHOR'S ORGANIZ ATION 12/30/2023 [facility] ([place]) DATE CREATED AUTHOR AUTHOR'S ORGANIZ ATION 06/12/2024 [facility] DATE CREATED AUTHOR AUTHOR'S ORGANIZ ATION 07/12/2024 [facility] DATE CREATED AUTHOR AUTHOR'S ORGANIZ ATION 08/29/2024 [facility] DATE CREATED AUTHOR AUTHOR'S ORGANIZ ATION 09/10/[address] [facility] DATE CREATED AUTHOR AUTHOR'S ORGANIZ ATION 09/15/2024 [facility] DATE CREATED AUTHOR AUTHOR'S ORGANIZ ATION 10/14/2024 [facility] Reason for Visit (unrecogniz ed section and content) Reason Comments Problem Emesis Syncope Reason Comments Emesis Nausea Problem Reason Comments Morning Sickness Reason Comments Immunization/Injection Reason Comments Follow-up Reason Comments Refill Request Reason Comments Well Woman Reason Comments Colposcopy Specialty Diagnoses / Procedures [facility]erred To Contact [facility] Diagnoses Cervical high risk HPV (human papillomavirus) test positive History of loop electrical excision procedure (LEEP) Procedures COLPOSCOPY COLPOSCOPY CERVIX BX CERVIX & ENDOCRV CURRETAGE Trang Mcclain APRN.DEVELOPMENT TECHNICIAN [address] [place] [address] [facility] [address] [place] [address] Referral ID Status Reason Start Date Expiration Date V isits Requested Visits Authorized [id number] Closed Auto-Generate d Referral 12/16/2021 12/16/2022 1 1 Reason Onset Date Comments Depo Provera Injection 02/09/2022 Reason Comments New Patient Specialty Diagnoses / Procedures Referred By Reymundo lantigua Referred To Contact Vascular Surgery Diagnoses Asymptomatic varicose veins of right lower extremity Procedures CONSULT TO VASCULAR SURGERY OFFICE/OUTPATIENT NEW HIGH MDM 60-74 MINUTES Trang Mcclain APRN.DEVELOPMENT TECHNICIAN [address] [place] [address] Referral ID Status Reason Start Date Expiration Date V isits Requested Visits Authorized [id number] Closed PCP Requested Referral 12/08/2021 12/08/2022 1 1 Reason Onset Date Comments Depo Provera Injection 04/27/2022 Reason Onset Date Comments AUB 04/27/2022 Reason Comments Follow-up Reason Comments Established Patient Reason Onset Date Comments Contraception Depo Provera Injection 07/07/2022 Reason Comments Urinary Incontinence Reason Onset Date Comments Depo Provera Injection 09/15/2022 Reason Onset Date Comments Depo Provera Injection 11/24/2022 Reason Onset Date Comments Yearly Exam Gardasil Injection 12/27/2022 Reason Comments Radiology US Specialty Diagnoses / Procedures [facility] To [facility] IM[facility] Diagnoses Breakthrough bleeding on Depo-Provera Abnormal uterine bleeding (AUB) Procedures US FEMALE PELVIS TRANSVAG US TRANSVAGINAL Trang Mcclain APRN.DEVELOPMENT TECHNICIAN [address] [place] [address] [place] [address] Referral ID Status Reason Start Date Expiration Date V isits Requested Visits Authorized [id number] Closed Auto-Generate d Referral 07/07/2022 08/06/2023 1 1 Reason Onset Date Comments Gardasil Injection 07/19/2023 Depo Provera Injection 07/19/2023 Reason Comments Other Urogyn return Follow-up Reason Onset Date Comments Depo Provera Injection 10/18/2023 Reason Comments Orders Reason Onset Date Comments Depo Provera Injection 01/10/2024 Reason Comments Well Woman Reason Comments Results Reason Onset Date Comments Depo Provera Injection 04/03/2024 Reason Comments Other Urogyn appt Reason Onset Date Comments Depo Provera Injection 06/12/2024 Reason Comments Establish Care Pt is here to establ jovi care and need medication refill. Reason Onset Date Comments Depo Provera Injection 08/21/2024 Reason Comments Other Urogyn return Laurie Flores CNP - 07/03/2018 10:55 PM Michelle Gillespie RN - 07/03/2018 10:33 PM Tammy Haas RN - 07/25/2018 9:48 AM EDTammy German RN - 07/25/2018 9:46 AM EDT ED Notes (unrecognized secti on and content) ED PROVIDER NOTE [facility] EMERGENCY DEPARTMENT NAME: Isidra Zaldivar AGE: 32 y.o. : 1985 VISIT DATE: 07/03/2018 CSN: [id number] PCP: Chad Montero MD Chief Complaint Patient presents with Problem Emesis Syncope Pt arrives to the ER with c/o persistent N/V with syncope tonight. She is approx 10 weeks and she has been dealing with N/V throughout the and she has been taking zofran as prescribed. She has not seen an WATCH REPAIRER yet but she has been seen by her PCP and she did have an IUP confirmed via US. They are trying to get her into higher education administrator at [employer]. She states that tonight she was having an episode of vomiting and had gone outside to get some air and started feeling lightheaded. She was by their jeep and she ended up passing out striking the right side of her face on the jeep. She has no cuts or external signs of trauma. She denies any neck pain. She has been having issues with constipation as well. She denies any vaginal bleeding or discharge. She has no urinary c/o. She has general body aches. She denies any fever but has occasional chills. Se denies this episode tonight being a seizure. She took her last dose of zofran around 1500. Past Medical History: Diagnosis Date Bipolar 1 disorder (HCC) Seizures (HCC) Past Surgical History: Procedure Laterality Date KNEE 1 OR 2 VIEWS BILATERAL History reviewed. No pertinent family history. Social History Socioeconomic History Marital status: Spouse name: Not on file Number of children: Not on file Years of education: Not on file Highest education level: Not on file Social Needs Financial resource strain: Not on file Food insecurity - worry: Not on file Food insecurity - inability: Not on file Transportation needs - medical: Not on file Transportation needs - non-medical: Not on file Occupational History Not on file Tobacco Use Smoking status: Current Every Day Smoker Packs/day: 0.50 Types: Cigarettes Smokeless tobacco: Never Used Substance and Sexual Activity Alcohol use: No Drug use: No Sexual activity: Not on file Other Topics Concern Not on file Social History Narrative Not on file Previous Medications Medication Sig albuterol 90 mcg/actuation inhaler Inhale 2 puffs every 6 (six) hours as needed for wheezing. cetirizine (ZYRTEC) 10 MG tablet Take 10 mg by mouth daily. desmopressin (DDAVP) 0.2 MG tablet Take 0.2 mg by mouth daily. lamoTRIgine (LAMICTAL) 100 MG tablet Take 100 mg by mouth daily. paliperidone (INVEGA) 9 MG 24 hr tablet Take 9 mg by mouth every morning. prazosin (MINIPRESS) 2 MG capsule Take 2 mg by mouth nightly. tiZANidine (ZANAFLEX) 4 MG capsule Take by mouth 3 (three) times a day. No Known Allergies Review of Systems Constitutional: Negative. HENT: Negative. Eyes: Negative. Respiratory: Negative. Cardiovascular: Negative. Gastrointestinal: Positive for constipation, nausea and vomiting. Endocrine: Negative. Genitourinary: Negative. Musculoskeletal: Negative. Skin: Negative. Allergic/Immunologic: Negative. Neurological: Positive for syncope (after an episode of vomiting). Hematological: Negative. Psychiatric/Behavioral: Negative. All other systems reviewed and are negative. Patient Vitals for the past 24 hrs: BP Temp Temp src Pulse Resp SpO2 07/03/18 2229 112/71 97.6 F (36.4 C) Oral 82 18 98 % Physical Exam Constitutional: She is oriented to person, place, and time. She appears well-developed and well-nourished. No distress. HENT: Head: Normocephalic and atraumatic. No outward signs of trauma Eyes: Conjunctivae and EOM are normal. Pupils are equal, round, and reactive to light. Neck: Normal range of motion. Cardiovascular: Normal rate, regular rhythm, normal heart sounds and intact distal pulses. No murmur heard. Pulmonary/Chest: Effort normal and breath sounds normal. No respiratory distress. She has no wheezes. Abdominal: Soft. Bowel sounds are normal. She exhibits no distension. There is no tenderness (no tenderness on palpation). Still feels nauseated but no active vomiting on exam Musculoskeletal: Normal range of motion. Neurological: She is alert and oriented to person, place, and time. No cranial nerve deficit. Skin: Skin is warm and dry. Capillary refill takes less than 2 seconds. Psychiatric: She has a normal mood and affect. Her behavior is normal. Nursing note and vitals reviewed. Laboratory & Radiographic Imaging (if done): Results for orders placed or performed during the hospital encounter of 07/03/18 Chem 7 Result Value Ref Range Sodium 136 135 - 145 mmol/L Potassium 3.7 3.5 - 5.1 mmol/L Chloride 97 (L) 98 - 108 mmol/L Bicarbonate 23 21 - 32 mmol/L Creatinine 0.36 (L) 0.40 - 1.10 mg/dL Glucose 87 65 - 99 mg/dL BUN 4 (L) 8 - 25 mg/dL eGFR 144 >=60 mL/min/1.73 m2 BUN/Creatinine Ratio 11.1 10.0 - 20.0 Anion Gap 20 10 - 20 mmol/L Urinalysis Result Value Ref Range Color, Urine Yellow Colorless, Yellow Clarity, Urine Hazy (A) Clear Specific Sterling 1.015 1.005 - 1.025 pH, Urine 5.0 5.0 - 7.0 Protein, Urine Negative Negative mg/dL Glucose, Urine Negative Negative mg/dL Ketones, Urine Trace (A) Negative mg/dL Bilirubin, Urine Negative Negative Urobilinogen, Urine >=4.0 (A) <2.0 mg/dL Blood, Urine Negative Negative Nitrite, Urine Negative Negative Leukocyte Esterase, Urine Moderate (A) Negative WBCs, Urine 14 (H) 0 - 5 /hpf RBCs, Urine <1 0 - 3 /hpf Bacteria, Urine Many (A) None Seen /hpf Squamous Epithelial 6 (H) 0 - 4 /hpf Mucus, Urine Few (A) None Seen, Rare /lpf Lipase Result Value Ref Range Lipase 16 15 - 65 U/L Hepatic Function Panel (LFT) Result Value Ref Range Total Protein 7.5 6.0 - 8.0 g/dL Albumin 4.2 3.2 - 5.2 g/dL Total Bilirubin 0.4 0.0 - 1.3 mg/dL Bilirubin, Direct 0.1 0.0 - 0.4 mg/dL Alkaline Phosphatase 99 40 - 140 U/L AST 44 0 - 45 U/L ALT 80 (H) 0 - 40 U/L CBC Auto Differential Result Value Ref Range WBC 10.98 4.50 - 11.00 K/mcL RBC 5.04 4.00 - 5.20 M/mcL Hemoglobin 14.6 12.0 - 16.0 g/dL Hematocrit 43.7 36.0 - 46.0 % MCV 86.7 80.0 - 100.0 fL MCH 29.0 26.0 - 34.0 pg MCHC 33.4 31.0 - 37.0 g/dL Platelets 174 150 - 400 K/mcL RDW - CV 13.9 11.6 - 14.8 % MPV 13.3 9.0 - 15.5 fL Neutrophils 56.5 % Lymphocytes 33.8 % Monocytes 4.4 % Eosinophils 3.4 % Basophils 0.4 % IG Percent 1.50 % Neutrophils Abs 6.21 1.70 - 7.00 K/mcL Lymphocytes Abs 3.71 0.90 - 4.00 K/mcL Monocytes Abs 0.48 0.30 - 0.90 K/mcL Eosinophils Abs 0.37 0.00 - 0.50 K/mcL Basophils Abs 0.04 0.00 - 0.30 K/mcL IG Absolute 0.17 0.00 - 0.30 K/mcL Nucleated RBC 0.0 % Nucleated RBC Abs 0.00 0.00 - 0.00 K/mcL No orders to display Procedures MDM Isidra Zaldivar is a 32 y.o. female who presents with a chief complaint of Chief Complaint Patient presents with Problem Emesis Syncope . The patient's vitals, lab and/or radiology results are as above. Pt arrives to the ER with c/o syncope after an episode of vomiting. She has been having issues with N/V during her and she went outside to get some air tonight and felt lightheaded then passed out. She had hit her face on the car as she slid down. She has no outward signs of trauma and no neuro deficits on exam. I do not feel she needs a CT at this time. She is given some fluids. She is stable and atb are given for UTI. She is encouraged to follow up this week with her PCP> As a result,These allergies were reviewed: No Known Allergies. And the following medications were administered: Medications sodium chloride 0.9% (NS) bolus 1,000 mL (1,000 mL Intravenous New Bag 07/03/182352) metoclopramide (REGLAN) injection 10 mg (10 mg Intravenous Given 07/03/182352) acetaminophen (TYLENOL) tablet 975 mg (975 mg Oral Given 07/03/182352) . Patient was reassessed and dispositioned. . . Clinical Impression: SNOMED CT(R) 1. Hyperemesis gravidarum HYPEREMESIS GRAVIDARUM 2. Acute UTI ACUTE URINARY TRACT INFECTION ED Disposition None Follow-up Information 1. Chad Montero MD. Specialty: Family Medicine [address] [place] [address] Contact information for after-discharge care Follow-up information has not been specified. New Prescriptions metoclopramide (REGLAN) 10 MG tablet Take 1 (one) tablet (10 mg total) by mouth 4 (four) times a day as needed . nitrofurantoin, macrocrystal-monohydrate, (MACROBID) 100 MG capsule Take 1 (one) capsule (100 mg total) by mouth 2 (two) times a day . Laurie Flores CNP 07/04/18 0013 Pt arrives to ED with c/o intractable vomiting with with generalized abdominal pain. Pt states she has been unable to hold down any food. Pt is able to tolerate fluids. Reports she is approx 10 weeks with confirmed IUP. Reports syncopal episode tonight. Pt states she was lightheaded and then the next thing she knew she was on the ground. Pt states that she hit her head on the car when she passed out. No obvious signs of trauma. Denies vaginal bleeding or discharge. Pt is alert and oriented, NAD. in this encounter Pt and states understanding of discharge instructions, pt ambulates to er exit with her . ER Doctor attempts to talk pt into staying pt refuses and wants to go home. Pt alertx3 pt p/w/d. Physician at bedside. Pt's here this rn goes over discharge instructions with pt's Pt signs AMA, discharge instructions gone over with pt. Pt waiting for her , pt wants the doctor to speak with her . ER doctor aware of pt request. Pt called this Rn into her room and states that we made her more nausea with the medicine we gave her, pt has this Rn stop her fluids, pt wants her iv out, this Rn offered pt nausea medicine pt refused., pt wants to go home. Pt alertx3 pt p/w/d. Patient is resting comfortably. Call light within reach. Patient updated on continued plan of care. Pt was given water per caustic cresylate shift superintendent nurse and applesauce to try, pt drank water and has not tried the applesauce yet, pt states she needs it warm, this rn informed pt it is warm now, pt will not try to eat applesauce, pt wanted to refuse antibiotic and new 5% dextrose in 0.9% this rn informed pt she is being admitted for antibiotics for her UTI and vomiting and she needed the medicine, pt agreed to take the medicine and infusion. Pt refuses to use vomit bags, pt just spits in her trash can she brought from home, pt has not vomited. Pt states she is claustrophobic and has to have her door open. Pt alertx3 pt p/w/d. Assisted patient to restroom. Patient given water as requested. No vomitting overnight per patient. Patient resting on cart. Call light within reach, will continue to monitor. Patient resting comfortably on cart with call light in reach. Will continue to monitor. Pt continues to be resting quietly on cart with eyes closed, no distress noted. Bed in low position, call light in reach. Will continue to monitor. Pt resting quietly on cart with eyes closed. Bed in low position, call light in reach. Will continue to monitor. ED PROVIDER NOTE [facility] EMERGENCY DEPARTMENT NAME: Isidra Zaldivar AGE: 32 y.o. : 1985 VISIT DATE: 07/24/2018 CSN: [id number] PCP: Chad Montero MD Chief Complaint Patient presents with Emesis Nausea Problem 32-year-old female who is 13 weeks presents with nausea and vomiting. She has had issues throughout her entire . She states this is been worse over the past week. She has been vomiting daily. She states she has seen small streaks of blood at times. No large bleeding. She denies diarrhea. She has some lower abdominal discomfort. She has no vaginal bleeding or discharge. No dysuria. She had decreased urine output. She denies fevers or chills. No chest pain or shortness of breath. She denies taking any medication for this. She has not yet seen an WATCH REPAIRER. She does have an appointment for next week. Past Medical History: Diagnosis Date Asthma Bipolar 1 disorder (HCC) Schizophrenia (HCC) Seizures (HCC) Past Surgical History: Procedure Laterality Date KNEE 1 OR 2 VIEWS BILATERAL History reviewed. No pertinent family history. Social History Socioeconomic History Marital status: Spouse name: Not on file Number of children: Not on file Years of education: Not on file Highest education level: Not on file Social Needs Financial resource strain: Not on file Food insecurity - worry: Not on file Food insecurity - inability: Not on file Transportation needs - medical: Not on file Transportation needs - non-medical: Not on file Occupational History Not on file Tobacco Use Smoking status: Current Every Day Smoker Packs/day: 0.25 Types: Cigarettes Smokeless tobacco: Never Used Substance and Sexual Activity Alcohol use: No Drug use: No Sexual activity: Not on file Other Topics Concern Not on file Social History Narrative Not on file Previous Medications Medication Sig [DISCONTINUED] albuterol 90 mcg/actuation inhaler Inhale 2 puffs every 6 (six) hours as needed for wheezing. [DISCONTINUED] cetirizine (ZYRTEC) 10 MG tablet Take 10 mg by mouth daily. [DISCONTINUED] desmopressin (DDAVP) 0.2 MG tablet Take 0.2 mg by mouth daily. [DISCONTINUED] lamoTRIgine (LAMICTAL) 100 MG tablet Take 100 mg by mouth daily. [DISCONTINUED] metoclopramide (REGLAN) 10 MG tablet Take 1 (one) tablet (10 mg total) by mouth 4 (four) times a day as needed . [DISCONTINUED] nitrofurantoin, macrocrystal-monohydrate, (MACROBID) 100 MG capsule Take 1 (one) capsule (100 mg total) by mouth 2 (two) times a day . [DISCONTINUED] paliperidone (INVEGA) 9 MG 24 hr tablet Take 9 mg by mouth every morning. [DISCONTINUED] prazosin (MINIPRESS) 2 MG capsule Take 2 mg by mouth nightly. [DISCONTINUED] promethazine (PHENERGAN) 25 MG tablet Take 1 (one) tablet (25 mg total) by mouth every 6 (six) hours as needed for nausea . [DISCONTINUED] tiZANidine (ZANAFLEX) 4 MG capsule Take by mouth 3 (three) times a day. No Known Allergies Review of Systems Constitutional: Negative for fever. HENT: Negative for drooling. Eyes: Negative for redness. Respiratory: Negative for cough. Cardiovascular: Negative for chest pain. Gastrointestinal: Positive for abdominal pain, nausea and vomiting. Genitourinary: Positive for decreased urine volume. Negative for dysuria. Musculoskeletal: Negative for gait problem. Skin: Negative for wound. Neurological: Negative for facial asymmetry. Psychiatric/Behavioral: Negative for agitation. All other systems reviewed and are negative. Patient Vitals for the past 24 hrs: BP Temp Temp src Pulse Resp SpO2 Height Weight 07/24/18 1832 118/82 (!) 113 99 % 07/24/18 1602 115/78 98.1 F (36.7 C) Oral 88 16 98 % 5' 7 98.9 kg (218 lb) Physical Exam Constitutional: She is oriented to person, place, and time. She appears well-developed. HENT: Head: Normocephalic and atraumatic. Nose: Nose normal. Eyes: Conjunctivae are normal. Neck: Neck supple. Cardiovascular: Normal rate and regular rhythm. Pulmonary/Chest: Effort normal and breath sounds normal. Abdominal: Soft. There is tenderness. Mild suprapubic tenderness Musculoskeletal: Normal range of motion. Neurological: She is alert and oriented to person, place, and time. Skin: Skin is warm and dry. Vitals reviewed. Laboratory & Radiographic Imaging (if done): No results found for this visit on 07/24/18. US Obstetric 1st Trimester Single Fetus Final Result Single viable intrauterine with sonographic gestational age of 13 weeks 1 days, corresponding with an estimated due date of 01/28/2019. Nonvisualized ovaries. Workstation ID: [id number] Procedures MDM The patient has been informed that they may have pre-hypertension or hypertension based on a blood pressure reading in the Emergency Department. I recommend that the patient call the primary care provider listed on their discharge instructions or a physician of their choice as soon as possible to arrange follow-up in the next 4 weeks for further evaluation of possible pre-hypertension or hypertension. . 32-year-old female here with hyperemesis. She is 13 weeks . She is tachycardic on arrival, she is vomiting into a basin. She was given IV fluids and Reglan with improvement. Lab evaluation shows a white blood cell count of 13.6. Hemoglobin is 16.2. Her chemistry shows a sodium 129, chloride of 87. Potassium is slightly low at 3.4. Bicarb of 18. UA shows moderate leukocyte esterase, 27 white blood cells. There are few bacteria. There are greater than 80 ketones. Will culture and treat. Ultrasound shows single viable intrauterine at 13 weeks 1 day. Patient has had improvement of her symptoms. Given her significant dehydration electrolyte abnormalities she will be transferred to [place] for hydration and further evaluation. Clinical Impression: SNOMED CT(R) 1. Hyperemesis gravidarum HYPEREMESIS GRAVIDARUM ED Disposition None Follow-up Information Follow-up information has not been specified. Contact information for after-discharge care Follow-up information has not been specified. Discontinued Medications Disp Refills Start End albuterol 90 mcg/actuation inhaler 07/24/2018 Class: Historical Med Reason for Discontinue: Therapy completed cetirizine (ZYRTEC) 10 MG tablet 07/24/2018 Class: Historical Med Reason for Discontinue: Therapy completed desmopressin (DDAVP) 0.2 MG tablet 07/24/2018 Class: Historical Med Reason for Discontinue: Therapy completed lamoTRIgine (LAMICTAL) 100 MG tablet 07/24/2018 Class: Historical Med Reason for Discontinue: Therapy completed paliperidone (INVEGA) 9 MG 24 hr tablet 07/24/2018 Class: Historical Med Reason for Discontinue: prazosin (MINIPRESS) 2 MG capsule 07/24/2018 Class: Historical Med Reason for Discontinue: tiZANidine (ZANAFLEX) 4 MG capsule 07/24/2018 Class: Historical Med Reason for Discontinue: promethazine (PHENERGAN) 25 MG tablet 30 tablet 0 07/12/2018 07/24/2018 Sig: Take 1 (one) tablet (25 mg total) by mouth every 6 (six) hours as needed for nausea . Class: Print Route: Oral Reason for Discontinue: Therapy completed nitrofurantoin, macrocrystal-monohydrate, (MACROBID) 100 MG capsule 20 capsule 0 07/04/2018 07/24/2018 Sig: Take 1 (one) capsule (100 mg total) by mouth 2 (two) times a day . Class: Print Route: Oral Reason for Discontinue: Therapy completed metoclopramide (REGLAN) 10 MG tablet 60 tablet 0 07/04/2018 07/24/2018 Sig: Take 1 (one) tablet (10 mg total) by mouth 4 (four) times a day as needed . Class: Print Route: Oral Reason for Discontinue: Therapy completed Madison Fernandez MD 07/24/18 5927 Unable to get IV and labs at this time. Pt is 13 weeks , pt has n/v. Pt has had this since May. Pt does days where she is ok then some days that she cant keep anything down. Pt has pain in her lower abd. Pt with confirmed IUP. No vaginal bleeding noted. in this encounter PCP - Chad Montero MD [phone] Chief Complaint Patient presents with Morning Sickness HPI: 32-year-old female, , 12 weeks presents to the ED with nausea and vomiting. She is had this during her entire thus far. She is been following with the PCP for this, who recently wanted to stop using the Zofran ODT's for concerns of possible defects. Patient has had an ultrasound but has not followed with WATCH REPAIRER yet, having trouble getting an appointment as her recently lost his insurance. Patient states her PCP was trying to get air into maternal medicine due to her history of bipolar, schizophrenia and seizures. She is been off her medications for those due to the . She states now that she cannot take Zofran she has not been able to keep down anything by mouth since Monday. She states even water she brings back up. Denies any abdominal pain. Denies fevers or chills. Denies any vaginal bleeding. Review of Systems CONSTITUTIONAL: No unexpected weight change; HENT: No drooling; EYES: No discharge; RESPIRATORY: No stridor; ENDOCRINE: No polyphagia; ALLERGY/IMMUN: No hives; SKIN: No color changes; NEUROLOGIC: No new face asymmetry; HEMATOLOGIC: No new easy bruising; PSYCH: No self injury Review of Systems Past Medical History Reviewed Past Medical History: Diagnosis Date Asthma Bipolar 1 disorder (HCC) Schizophrenia (HCC) Seizures (HCC) Past Surgical History Reviewed Past Surgical History: Procedure Laterality Date KNEE 1 OR 2 VIEWS BILATERAL Family History Reviewed and not pertinent History reviewed. No pertinent family history. Social History Reviewed Social History Socioeconomic History Marital status: Spouse name: Not on file Number of children: Not on file Years of education: Not on file Highest education level: Not on file Social Needs Financial resource strain: Not on file Food insecurity - worry: Not on file Food insecurity - inability: Not on file Transportation needs - medical: Not on file Transportation needs - non-medical: Not on file Occupational History Not on file Tobacco Use Smoking status: Current Every Day Smoker Packs/day: 0.25 Types: Cigarettes Smokeless tobacco: Never Used Substance and Sexual Activity Alcohol use: No Drug use: No Sexual activity: Not on file Other Topics Concern Not on file Social History Narrative Not on file Allergies Reviewed No Known Allergies Medications Medication List ASK your doctor about these medications albuterol 90 mcg/actuation inhaler cetirizine 10 MG tablet Commonly known as: ZYRTEC desmopressin 0.2 MG tablet Commonly known as: DDAVP lamoTRIgine 100 MG tablet Commonly known as: LAMICTAL metoclopramide 10 MG tablet Commonly known as: REGLAN Take 1 (one) tablet (10 mg total) by mouth 4 (four) times a day as needed . nitrofurantoin (macrocrystal-monohydrate) 100 MG capsule Commonly known as: MACROBID Take 1 (one) capsule (100 mg total) by mouth 2 (two) times a day . paliperidone 9 MG 24 hr tablet Commonly known as: INVEGA prazosin 2 MG capsule Commonly known as: MINIPRESS tiZANidine 4 MG capsule Commonly known as: ZANAFLEX Physical Exam Initial Vital Signs BP (!) 113/48 (BP Location: Left arm, Patient Position: Sitting) Pulse 88 Temp 98.4 F (36.9 C) (Oral) Resp 16 Ht 5' 7 Wt 99.5 kg (219 lb 5.7 oz) LMP (LMP Unknown) SpO2 96% BMI 34.36 kg/m Physical Exam Constitutional: She is oriented to person, place, and time. She appears well-developed and well-nourished. HENT: Head: Normocephalic and atraumatic. Eyes: EOM are normal. Pupils are equal, round, and reactive to light. Neck: Normal range of motion. Neck supple. Cardiovascular: Normal rate, regular rhythm and normal heart sounds. Pulmonary/Chest: Effort normal and breath sounds normal. No respiratory distress. Abdominal: Soft. There is no tenderness. Musculoskeletal: Normal range of motion. Neurological: She is alert and oriented to person, place, and time. Skin: Skin is warm and dry. Nursing note and vitals reviewed. Labs Reviewed CHEM 7 - Abnormal; Notable for the following components: Result Value Sodium 134 (*) Bicarbonate 18 (*) Creatinine 0.23 (*) BUN 5 (*) BUN/Creatinine Ratio 21.7 (*) All other components within normal limits Narrative: The eGFR should be used for monitoring renal function only and not for medication dosing. CBC WITH AUTO DIFFERENTIAL - Abnormal; Notable for the following components: WBC 11.61 (*) Neutrophils Abs 7.22 (*) All other components within normal limits CBC AND DIFFERENTIAL Narrative: The following orders were created for panel order CBC w/ Diff. Procedure Abnormality Status --------- ------ CBC Auto Differential[[id number]] Abnormal Final result Please view results for these tests on the individual orders. No orders to display Vital Signs During ED Visit (as charted by nursing) Patient Vitals for the past 24 hrs: BP Temp Temp src Pulse Resp SpO2 Height Weight 07/12/18 2142 (!) 113/48 98.4 F (36.9 C) Oral 88 16 96 % 5' 7 99.5 kg (219 lb 5.7 oz) . . Procedures: Procedures MDM: Patient was treated with IV fluids and Reglan. She is feeling much improved. Despite not tolerating much by mouth her labs are reassuring. Discussed switching to Phenergan, have an outpatient follow-up with [facility] and she will touch base with Medicaid regarding insurance to assist with medical follow-up. I personally discussed all results with the patient at bedside. Patient is aware of all results and is comfortable with all plans for disposition. IMPRESSION: SNOMED CT(R) 1. Nausea and vomiting, intractability of vomiting not specified, unspecified vomiting type NAUSEA AND VOMITING 2. First trimester FIRST TRIMESTER Arnav Castaneda DO Note: To expedite correspondence this note was generated by [employer] voice recognition software. Some grammatical or spelling errors may occur using the system. Arnav Castaneda DO 07/13/18 0213 Pt is 12 weeks . Was on Zofran but changed doctors and stated they didn't want me to take that anymore. Stated they wanted us to start on a new medication but unable to pick that up until tomorrow due to losing job. Pt stated has not been able to eat since Monday. Denies vaginal bleeding or discharge. Stated also has chest pain from vomiting so much. in this encounter ED Attestation Note - Gabriele Parrish MD - 07/03/2018 11:45 PM ESTED Update Note - Izabela Issa DO - 07/25/2018 8:57 AM EDT Miscellaneous Notes (unrecog nized section and content) ED Attestation: I have reviewed the non physician practitioner's documentation, personally taken the patient's history, performed an exam and agree with the physical findings, clinical impression and management plan 32-year-old female presents complaining of having had a syncopal episode this evening was vomiting which she is been vomiting over the last day and a half to days. Patient is approximately 10 weeks by dates. Has been keeping anything down despite Zofran and then got up when outside for fresh air and then got really lightheaded and had a syncopal episode did strike her head against the edge of her car and went down to the ground has no headache no neck pain no back pain no chest pain or abdominal pain. No vaginal bleeding no vaginal discharge next Physical exam vital signs stable patient is afebrile General no apparent distress HEENT neck supple trach is midline Lungs are clear to auscultation bilaterally Cardiovascular regular rate and rhythm Abdomen is soft nontender nondistended in this encounter Contacted by the nursing staff that the patient wanted the IV out and she wanted to leave. It seems that she has had a complicated early course with nausea and vomiting with presumed hyperemesis gravidarum. She had large ketones in the urine and presumption of at least bacteriuria. Had had several rounds of IV fluids and was recommended for admission. Did order dextrose containing solution and as needed nausea medicines. Seems that she still having difficulty containing and maintaining a diet. Regardless it seems that she wants to go home if she feels worse. She is certainly capable to make this decision. She has a GCS of 15 and is not altered. Risks and benefits are clear to her. She is certainly welcome back at any point to resume her workup but will be leaving AGAINST MEDICAL ADVICE. As next best option will prescribe her Keflex and anti-nausea medicines for home. Zay this encounter Care Teams (unrecognized sec tion and content) Senior Research Associate Relationship Specialty Start Date End Date [facility], Other [address] [place] [phone] PCP - OBGYN WATCH REPAIRER 01/31/19 Senior Research Associate Relationship Specialty Start Date End Date [facility], Other [address] [phone] PCP - OBGYN WATCH REPAIRER 01/31/19 Senior Research Associate Relationship Specialty Start Date End Date [facility], Other [address] [phone] PCP - OBGYN WATCH REPAIRER 01/31/19 Senior Research Associate Relationship Specialty Start Date End Date [facility], Other [address] [place], [place] [address], [place] [phone] PCP - OBGYN Obstetrics & Gynecology 01/31/19 Team Status: Active Member Role Status Dates Dr. Olman Son DO Primary Care Provider Active Team Status: Inactive Member Role Status Dates Dr. Peterson Patterson MD Attending Provider Active Dr. Olman Son DO Primary Care Provider, Referring P rovider Active Team Status: Inactive Member Role Status Dates Dr. Olman Son DO Primary Care Provider, Referring P rovider Active Dr. Franko Hernandez , DO Attending Provider Active Team Status: Inactive Member Role Status Dates Dr. Olman Son DO Primary Care Provider, Referring P rovider Active Dr. Lon Mccabe MD Attending Provider Active Team Status: Inactive Member Role Status Dates Dr. Olman Son DO Primary Care Provider Active Kings Kline MD Attending Provider Active PAWAN WELLINGTON Referring Provider Active LASHONDA MCKEON Other Provider Active Team Status: Inactive Member Role Status Dates Dr. Olman Son DO Primary Care Provider Active Dr. Lon Mccabe MD Attending Provider Active Team Status: Inactive Member Role Status Dates Dr. Olman Son DO Primary Care Provider Active Dr. Franko Hernandez , DO Attending Provider Active Team Status: Inactive Member Role Status Dates Dr. Olman Son DO Primary Care Provider Active Dr. Franko Hernandez DO Attending Provider, Referring Provider Active Team Status: Active Member Role Status Dates Dr. Olman Son DO Primary Care Provider Active Dr. Peterson Patterson MD Attending Provider, Referring Provider Active Team Status: Inactive Member Role Status Dates Dr. Olman Son DO Primary Care Provider Active Dr. Migdalia Gallardo MD Emergency Provider Active Team Status: Inactive Member Role Status Dates Dr. Olman Son DO Primary Care Provider, Referring P rovider Active Kings Kline MD Attending Provider Active Team Status: Inactive Member Role Status Dates Dr. Olman Son DO Primary Care Provider Active Dr. Peterson Patterson MD Attending Provider, Referring Provider Active Team Status: Inactive Member Role Status Dates Dr. Olman Son DO Primary Care Provider Active Dr. Migdalia Gallardo MD Attending Provider, Emergency Provider Active Senior Research Associate Relationship Specialty Start Date End Date [facility], Other [address] [facility] 4th [place] [phone] PCP - OBGYN Obstetrics & Gynecology 01/31/19 Team Status: Inactive Member Role Status Dates Dr. Olman Son DO Primary Care Provider, Referring P rovider Active Dr. Shimon Sterling MD Attending Provider Active Team Status: Inactive Member Role Status Dates Dr. Olman Son DO Primary Care Provider, Referring P rovider Active Dr. Peterson Patterson MD Attending Provider Active Team Status: Active Member Role Status Dates Dr. Olman Son DO Primary Care Provider, Referring P rovider Active Dr. Shimon Sterling MD Attending Provider, Other Provi lauren Active Team Status: Inactive Member Role Status Dates Dr. Olman Son DO Primary Care Provider Active Dr. Shimon Sterling MD Attending Provider, Referring P rovider Active Senior Research Associate Relationship Specialty Start Date End Date [facility], Other [address] [facility] [address] [place] [phone] PCP - OBGYN Obstetrics & Gynecology 01/31/19 Dipika Dacosta, ETIQUETTE COACH-DEVELOPMENT TECHNICIAN [address] [place] [address] Certified Nurse Practitioner 11/03/22 Team Status: Inactive Member Role Status Dates Dr. Olman Son DO Primary Care Provider, Referring P rovider Active Dr. Darrion Root MD Attending Provider Active Team Status: Active Member Role Status Dates Dr. Olman Son DO Primary Care Provider Active Jossy Lucero LPN Attending Provider Active Team Status: Active Member Role Status Dates Dr. Olman Son DO Primary Care Provider Active Dr. Darrion Root MD Attending Provider, Referring Pr ovider Active Team Status: Inactive Member Role Status Dates Dr. Olman Son DO Primary Care Provider Active Dr. Darrion Root MD Attending Provider, Referring Pr ovider Active Team Status: Active Member Role Status Dates Dr. Olman Son DO Primary Care Provider Active Dr. Darrion Root MD Referring Provider, Other Provid er Active Dr. Chuy Ambrosio , Attending Provider Active Senior Research Associate Relationship Specialty Start Date End Date Olman Son DO [address] [place] [phone] PCP - General Family Medicine 07/19/23 Team Status: Active Member Role Status Dates Dr. Olman Son , Primary Care Provider Active Geoffrey Hutton MANAGER MECHANICAL MAINTENANCE, MANAGER MECHANICAL MAINTENANCE-C Referring Provider, Other Provid er Active Dr. Yong Fenton MD Attending Provider Active Team Status: Inactive Member Role Status Dates Dr. Olman Son DO Primary Care Provider Active Geoffrey Hutton MANAGER MECHANICAL MAINTENANCE, MANAGER MECHANICAL MAINTENANCE-C Attending Provider, Referring Pr ovider Active Senior Research Associate Relationship Specialty Start Date End Date [facility], Other [address] [facility] [address]th [place] [phone] PCP - OBGYN Obstetrics & Gynecology 01/31/19 [facility], Other [address] [place] [phone] PCP - [facility] 08/23/23 Dipika Dacosta, ETIQUETTE COACH-DEVELOPMENT TECHNICIAN [address] [facility] 7th [place] [phone] Certified Nurse Practitioner 11/03/22 Senior Research Associate Relationship Specialty Start Date End Date lOman Son DO [address] [place] [address] PCP - General Family Medicine 07/19/23 Senior Research Associate Relationship Specialty Start Date End Date Olman Son DO [address] [place] [address] PCP - General Family Medicine 07/19/23 Senior Research Associate Relationship Specialty Start Date End Date Olman Son DO [address] [place] [address] PCP - General Family Medicine 07/19/23 Senior Research Associate Relationship Specialty Start Date End Date Olman Son DO [address] [place] [address] PCP - General Family Medicine 07/19/23 Senior Research Associate Relationship Specialty Start Date End Date Olman Son DO [address] [place] [address] PCP - General Family Medicine 07/19/23 Senior Research Associate Relationship Specialty Start Date End Date Olman Son DO [address] [place] [address] PCP - General Family Medicine 07/19/23 Senior Research Associate Relationship Specialty Start Date End Date [facility], Other [address] [facility] [address] [place] [phone] PCP - OBGYN Obstetrics & Gynecology 01/31/19 [facility], Other [address] [place] [address] PCP - General [facility] 08/23/23 Dipika Dacosta, ETIQUETTE COACH-DEVELOPMENT TECHNICIAN [address] [place] [address] Certified Nurse Practitioner 11/03/22 Senior Research Associate Relationship Specialty Start Date End Date [facility], Other [address] [place] [phone] PCP - OBGYN Obstetrics & Gynecology 01/31/19 [facility], Other [address] [place] [address] PCP - [facility] 08/23/23 Dipika Dacosta APRN-DEVELOPMENT TECHNICIAN [address] [place] [address] Certified Nurse Practitioner 11/03/22 Senior Research Associate Relationship Specialty Start Date End Date Olman Son DO [address] [place] [address] PCP - General Family Medicine 07/19/23 Senior Research Associate Relationship Specialty Start Date End Date Olman Son DO [address] [place] [address] PCP - General Family Medicine 07/19/23 Senior Research Associate Relationship Specialty Start Date End Date [facility], Other [address] [place] [phone] PCP - OBGYN Obstetrics & Gynecology 01/31/19 [facility], Other [address] [place] [address] PCP - [facility] 08/23/23 Dipika Dacosta, ETIQUETTE COACH-DEVELOPMENT TECHNICIAN [address] [place] [address] Certified Nurse Practitioner 11/03/22 Goals (unrecognized section and content) No data available for this section No data available for this section No data available for this section No data available for this section No data available for this section No data available for this sectionGoals may be documented in an alternate sectionGoals may be documented in an alternate sectionGoals may be documented in an alternate sectionGoals may be documented in an alternate sectionGoals may be documented in an alternate sectionGoals may be documented in an alternate sectionGoals may be documented in an alternate sectionGoals may be documented in an alternate section No data available for this sectionGoals may be documented in an alternate sectionGoals may be documented in an alternate section No data available for this section No data available for this section No data available for this section No data available for this section No data available for this section No data available for this sectionGoals may be documented in an alternate sectionGoals may be documented in an alternate sectionGoals may be documented in an alternate section No data available for this section No data available for this section No data available for this section No data available for this section No data available for this section No data available for this section No data available for this section Source Comments (unrecognize d section and content) In the event this informatio n is protected by the Federal Confidentiality of Alcohol and Drug Abuse Patient Records regulations: The Federal rules restrict any use of the information to criminally investigate or prosecute any alcohol or drug abuse patient.[facility] Hospital[facility] the event this information is protected by the Federal Confidentiality of Alcohol and Drug Abuse Patient Records regulations: The Federal rules restrict any use of the information to criminally investigate or prosecute any alcohol or drug abuse patient.[facility] HospitalIn the event this information is protected by the Federal Confidentiality of Alcohol and Drug Abuse Patient Records regulations: The Federal rules restrict any use of the information to criminally investigate or prosecute any alcohol or drug abuse patient.[facility] HospitalIn the event this information is protected by the Federal Confidentiality of Alcohol and Drug Abuse Patient Records regulations: The Federal rules restrict any use of the information to criminally investigate or prosecute any alcohol or drug abuse patient.[facility] HospitalIn the event this information is protected by the Federal Confidentiality of Alcohol and Drug Abuse Patient Records regulations: The Federal rules restrict any use of the information to criminally investigate or prosecute any alcohol or drug abuse patient.[facility] HospitalIn the event this information is protected by the Federal Confidentiality of Alcohol and Drug Abuse Patient Records regulations: The Federal rules restrict any use of the information to criminally investigate or prosecute any alcohol or drug abuse patient.[facility] HospitalIn the event this information is protected by the Federal Confidentiality of Alcohol and Drug Abuse Patient Records regulations: The Federal rules restrict any use of the information to criminally investigate or prosecute any alcohol or drug abuse patient.[facility] HospitalIn the event this information is protected by the Federal Confidentiality of Alcohol and Drug Abuse Patient Records regulations: The Federal rules restrict any use of the information to criminally investigate or prosecute any alcohol or drug abuse patient.[facility] HospitalIn the event this information is protected by the Federal Confidentiality of Alcohol and Drug Abuse Patient Records regulations: The Federal rules restrict any use of the information to criminally investigate or prosecute any alcohol or drug abuse patient.[facility] HospitalIn the event this information is protected by the Federal Confidentiality of Alcohol and Drug Abuse Patient Records regulations: The Federal rules restrict any use of the information to criminally investigate or prosecute any alcohol or drug abuse patient.[facility] HospitalIn the event this information is protected by the Federal Confidentiality of Alcohol and Drug Abuse Patient Records regulations: The Federal rules restrict any use of the information to criminally investigate or prosecute any alcohol or drug abuse patient.[facility] HospitalIn the event this information is protected by the Federal Confidentiality of Alcohol and Drug Abuse Patient Records regulations: The Federal rules restrict any use of the information to criminally investigate or prosecute any alcohol or drug abuse patient.[facility] HospitalIn the event this information is protected by the Federal Confidentiality of Alcohol and Drug Abuse Patient Records regulations: The Federal rules restrict any use of the information to criminally investigate or prosecute any alcohol or drug abuse patient.[facility] HospitalIn the event this information is protected by the Federal Confidentiality of Alcohol and Drug Abuse Patient Records regulations: The Federal rules restrict any use of the information to criminally investigate or prosecute any alcohol or drug abuse patient.[facility] HospitalIn the event this information is protected by the Federal Confidentiality of Alcohol and Drug Abuse Patient Records regulations: The Federal rules restrict any use of the information to criminally investigate or prosecute any alcohol or drug abuse patient.[facility] HospitalIn the event this information is protected by the Federal Confidentiality of Alcohol and Drug Abuse Patient Records regulations: The Federal rules restrict any use of the information to criminally investigate or prosecute any alcohol or drug abuse patient.[facility] HospitalIn the event this information is protected by the Federal Confidentiality of Alcohol and Drug Abuse Patient Records regulations: The Federal rules restrict any use of the information to criminally investigate or prosecute any alcohol or drug abuse patient.[facility] HospitalIn the event this information is protected by the Federal Confidentiality of Alcohol and Drug Abuse Patient Records regulations: The Federal rules restrict any use of the information to criminally investigate or prosecute any alcohol or drug abuse patient.[facility] HospitalIn the event this information is protected by the Federal Confidentiality of Alcohol and Drug Abuse Patient Records regulations: The Federal rules restrict any use of the information to criminally investigate or prosecute any alcohol or drug abuse patient.[facility] HospitalIn the event this information is protected by the Federal Confidentiality of Alcohol and Drug Abuse Patient Records regulations: The Federal rules restrict any use of the information to criminally investigate or prosecute any alcohol or drug abuse patient.[facility] HospitalIn the event this information is protected by the Federal Confidentiality of Alcohol and Drug Abuse Patient Records regulations: The Federal rules restrict any use of the information to criminally investigate or prosecute any alcohol or drug abuse patient.[facility] HospitalIn the event this information is protected by the Federal Confidentiality of Alcohol and Drug Abuse Patient Records regulations: The Federal rules restrict any use of the information to criminally investigate or prosecute any alcohol or drug abuse patient.[facility] HospitalIn the event this information is protected by the Federal Confidentiality of Alcohol and Drug Abuse Patient Records regulations: The Federal rules restrict any use of the information to criminally investigate or prosecute any alcohol or drug abuse patient.[facility] HospitalIn the event this information is protected by the Federal Confidentiality of Alcohol and Drug Abuse Patient Records regulations: The Federal rules restrict any use of the information to criminally investigate or prosecute any alcohol or drug abuse patient.[facility] HospitalIn the event this information is protected by the Federal Confidentiality of Alcohol and Drug Abuse Patient Records regulations: The Federal rules restrict any use of the information to criminally investigate or prosecute any alcohol or drug abuse patient.[facility] the event this information is protected by the Federal Confidentiality of Alcohol and Drug Abuse Patient Records regulations: The Federal rules restrict any use of the information to criminally investigate or prosecute any alcohol or drug abuse patient.[facility] Hospital[facility] the event this information is protected by the Federal Confidentiality of Alcohol and Drug Abuse Patient Records regulations: The Federal rules restrict any use of the information to criminally investigate or prosecute any alcohol or drug abuse patient.[facility] Care Team (unrecognized sect ion and content) Care Team Personnel Name: OLMAN SON DO Position: P4 Physician - Primary Care Med Service: Active Provider Member Role: Primary Care Physician Address: Address: [address] [place] [address]- Care Team Related Persons Name: YAMINI ZALDIVAR Address: Home [id number] [phone] Care Team Personnel Name: OLMAN SON DO Position: P4 Physician - Primary Care Member Role: Primary Care Physician Address: Address: [address] [place] [address]- Care Team Related Persons Name: YAMINI ZALDIVAR Address: Home [id number] [phone] Care Team Personnel Name: OLMAN SON DO Position: P4 Physician - Primary Care Member Role: Primary Care Physician Address: Address: [address] [place] [address] Care Team Related Persons Name: YAMINI ZALDIVAR Address: Home [address] [phone] Care Team Personnel Name: OLMAN SON DO Position: P4 Physician - Primary Care Member Role: Primary Care Physician Address: Address: [address] [place] [id number] [place] [address] Care Team Related Persons Name: YAMINI ZALDIVAR Address: Home [address] [phone] Care Team Personnel Name: OLMAN SON DO Position: P4 Physician - Primary Care Member Role: Primary Care Physician Address: Address: [address] [place] [address] Care Team Related Persons Name: YAMINI ZALDIVAR Address: Home [id number] [place], [place] [address]REANNA BRAUN [address] [phone] Care Team Personnel Name: OLMAN SON DO Position: P4 Physician - Primary Care Med Service: Active Provider Member Role: Primary Care Physician Address: Address: [address] [place] [address] Care Team Related Persons Name: YAMINI ZALDIVAR Address: Home [address] [place] [phone] Active Administered Medications - up to 3 most recent administrations Administered Medications (un recognized section and content) Medication Order MAR Action Action Date Dose Rate Site medroxyPROGESTERone 150 mg injection (DEPO-PROVERA) 150 mg, INTRAMUSCULAR, EVERY 12 WEEKS, 4 doses, First dose on Cecelia 02/02/23 at 0930, Last dose on Cecelia 10/12/23 at 0930, Hazardous Potential Reproductive Risk Drug: Use appropriate PPE. Given 07/19/2023 3:55 PM EDT 150 mg Buttocks, Right Given 04/27/2023 2:15 PM EST 150 mg Bu ttocks, Left Given 02/02/2023 2:06 PM EDT 150 mg Bu ttocks, Right FOR RECORDS PERTAINING TO PATIENTS WHO ARE OR HAVE BEEN ENROLLED IN A CHEMICAL DEPENDENCY/SUBSTANCEABUSE PROGRAM, SOME INFORMATION MAY BE OMITTED. This clinical summary was aggregated from multiple sources. Caution should be exercised in using it in the provision of clinical care. This summary normalizes information from multiple sources, and as a consequence, information in this document may materially change the coding, format and clinical context of patient data. In addition, data may be omitted in some cases. CLINICAL DECISIONS SHOULD BE BASED ON THE PRIMARY CLINICAL RECORDS. [employer] [facility] provides no warranty or guarantee of the accuracy or completeness of information in this document.
== END | disposition home or self-care (01) ==
LOC: CT 10:07
PROVIDERS: PCP Student in an Organized Health Care Education/Training Program; Referring Provider Nurse Practitioner Acute Care; Visit Provider Nurse Practitioner Acute Care
DX: R91.1 Solitary pulmonary nodule (principal)
CPT/HCPCS: 71250